=== PATIENT | female | born 1945 | race Caucasian/White ===

== ENCOUNTER 2023-04-27 11:17 | Outpatient (OUT) | payer MEDICARE, BC, SELFPAY ==
[2023-04-27 11:47] LABS: Basophils Absolute Auto 0.1 10^3/uL (0.0-0.1); Basophils Percent Auto 0.7 % (0.2-2.0); Eosinophils Absolute Auto 0.2 10^3/uL (0.0-0.7); Eosinophils Percent Auto 2.6 % (0.9-7.0); Hematocrit 46.8 % (36.0-48.0); Immature Granulocytes Abs Auto 0.04 10^3/uL (0.00-0.03); Immature Granulocytes Pct Auto 0.4 % (0.0-0.5); Lymphocytes Absolute Auto 2.3 10^3/uL (1.2-3.8); Lymphocytes Percent Auto 24.5 % (20.5-60.0); Mean Corpuscular HGB Conc 34.2 g/dL (29.9-35.2); Mean Corpuscular Hemoglobin 28.4 pg (26.7-34.0); Mean Platelet Volume 8.1 fL (9.5-13.5); Monocytes Absolute Auto 0.7 10^3/uL (0.3-0.8); Neutrophils Absolute Auto 5.9 10^3/uL (1.4-6.5); Neutrophils Percent Auto 63.8 % (43.0-75.0); Platelet Count 359 10^3/uL (150-450); Red Blood Count 5.64 10^6/uL (4.20-5.40); Red Cell Distribution Width 12.3 % (11.0-15.0); White Blood Count 9.2 10^3/uL (4.0-11.0)
[2023-04-27 12:46] LABS: Anion Gap 11.8; BUN Creatinine Ratio 13.2; Calcium 9.2 mg/dL (8.5-10.1); Carbon Dioxide 30.1 mmol/L (21.0-32.0); Chloride 103 mmol/L (98-107); Estimated GFR (African America >60 (>=60); Estimated GFR (Non-African Ame >60 (>=60); Glucose 120 mg/dL (74-106); Potassium 3.9 mmol/L (3.5-5.1); Sodium 141 mmol/L (136-145); Thyroid Stimulating Hormone 1.748 uIU/mL (0.358-3.740)
== END 2023-04-27 11:18 ==
PROVIDERS: PCP Family Medicine; Visit Provider Family Medicine
DX: R53.82 Chronic fatigue, unspecified (principal)
CPT/HCPCS: 36415; 80048; 82306; 82607; 82728; 82746; 84443; 85025

== ENCOUNTER 2023-08-16 11:36 | Outpatient (OUT) | payer MEDICARE, BC, SELFPAY ==
[2023-08-16 12:06] LABS: Basophils Absolute Auto 0.1 10^3/uL (0.0-0.1); Basophils Percent Auto 0.8 % (0.2-2.0); Eosinophils Absolute Auto 0.3 10^3/uL (0.0-0.7); Eosinophils Percent Auto 2.9 % (0.9-7.0); Hematocrit 47.8 % (36.0-48.0); Hemoglobin 15.9 g/dL (12.0-16.0); Immature Granulocytes Abs Auto 0.03 10^3/uL (0.00-0.03); Immature Granulocytes Pct Auto 0.3 % (0.0-0.5); Lymphocytes Absolute Auto 2.5 10^3/uL (1.2-3.8); Lymphocytes Percent Auto 26.5 % (20.5-60.0); Mean Corpuscular HGB Conc 33.3 g/dL (29.9-35.2); Mean Corpuscular Hemoglobin 28.3 pg (26.7-34.0); Mean Corpuscular Volume 85.1 fL (81.0-99.0); Mean Platelet Volume 8.3 fL (9.5-13.5); Monocytes Absolute Auto 0.7 10^3/uL (0.3-0.8); Monocytes Percent Auto 7.4 % (1.7-12.0); Neutrophils Percent Auto 62.1 % (43.0-75.0); Platelet Count 327 10^3/uL (150-450); Red Blood Count 5.62 10^6/uL (4.20-5.40); Red Cell Distribution Width 12.2 % (11.0-15.0); White Blood Count 9.6 10^3/uL (4.0-11.0)
[2023-08-16 12:38] LABS: Bilirubin Urine NEGATIVE (NEGATIVE); Blood Urine TRACE-I (NEGATIVE); Clarity Urine CLEAR (CLEAR); Color Urine LT. YELLOW (YELLOW); Glucose Urine UA NEGATIVE (NEGATIVE); Ketones Urine NEGATIVE (NEGATIVE); Leukocyte Esterase Urine TRACE (NEGATIVE); Nitrite Urine NEGATIVE (NEGATIVE); Protein Urine NEGATIVE (NEG/TRACE); Specific Gravity Urine <=1.005 (1.005-1.025); Urobilinogen Urine 0.2 EU/dL (0.2-1.0); pH Urine 6.5 (5.0-9.0)
[2023-08-16 13:35] LABS: Alanine Aminotransferase 21 U/L (14-59); Albumin Level 3.8 g/dL (3.4-5.0); Alkaline Phosphatase 110 U/L (46-116); Anion Gap 11.5; Aspartate Amino Transferase 18 U/L (15-37); BUN Creatinine Ratio 17.3; Bilirubin Total 0.4 mg/dL (0.2-1.0); Calcium 9.5 mg/dL (8.5-10.1); Carbon Dioxide 31.7 mmol/L (21.0-32.0); Chloride 102 mmol/L (98-107); Estimated GFR (African America >60 (>=60); Estimated GFR (Non-African Ame >60 (>=60); Globulin 3.8 g/dL; Glucose 107 mg/dL (74-106); Potassium 4.2 mmol/L (3.5-5.1); Sodium 141 mmol/L (136-145); Total Protein 7.6 g/dL (6.4-8.2)
== END 2023-08-16 11:37 | disposition home or self-care (01) ==
LOC: LAB 11:38
PROVIDERS: PCP Family Medicine; Visit Provider Family Medicine
DX: R82.90 Unspecified abnormal findings in urine (principal); E61.1 Iron deficiency; R10.11 Right upper quadrant pain; R30.0 Dysuria
CPT/HCPCS: 36415; 80053; 81003; 82728; 85025; 87086

== ENCOUNTER 2023-08-27 09:06 | Outpatient (OUT) | payer MEDICARE, BC, SELFPAY ==
--- NOTE | 2023-08-27 | CT_ITS ---
The [address] [address] Patient Name: REJI PAULINO MRN: [id number] date: 1945 Sex: F Assigned Patient Location: CT Current Patient Location: CT Accession/Order Number: [id number] Exam Date: 08/27/2023 10:12 Report Date: 08/28/2023 22:50 At the request of: PARAS GALLARDO Procedure: CT abdomen pelvis w con CLINICAL HISTORY: R10.11; Right upper quadrant pain.. EXAMINATION: Enhanced CT scan of the abdomen and pelvis: 08/27/2023. COMPARISON: Enhanced CT scan of the abdomen and pelvis: 01/01/2023. TECHNIQUE: 3 mm axial images from lung bases through ischial tuberosities without intravenous or oral contrast were obtained. Sagittal, coronal reconstructions were performed. FINDINGS: The lung bases demonstrate no focal abnormalities. The heart size seems normal. There are no filling defects in the cardiac chambers. CT ABDOMEN: The liver demonstrates slight low attenuation compatible with fatty infiltration without discrete lesions in the liver. Gallbladder, pancreas, adrenal glands appear normal. The spleen demonstrates there is a low-attenuation lesion in the mid posterior aspect, measuring 4 mm in size. There is an additional low-attenuation lesion in the medial aspect of the spleen, measuring 9 mm in size. The left kidney demonstrates no focal abnormalities. In the right kidney there is a low-attenuation lesion in the midpole, laterally measuring 1.5 cm in size with average Hounsfield units of 6. The abdominal aorta is moderately calcified. There are a few small lymph nodes at the level of oanh hepatis. There is no aneurysm. There is no retroperitoneal or mesenteric adenopathy. The bowel loops are of normal caliber. Appendix is not seen. There are scattered diverticula in the colon. CT PELVIS: The bladder seems normal. There is no ureterolithiasis. There is no pelvic adenopathy. The uterus, ovaries are not seen. On the delayed phase bladder images there is no extravasation of contrast or filling defects at the base of the bladder or distal ureters. The visualized soft tissues demonstrate degenerative changes of thoracolumbar spine. CT/CT abdomen pelvis w con IMPRESSION: 1. No obvious explanation for patient's symptoms. 2. Diverticulosis without diverticulitis. 3. Either hemangiomas or cysts in the spleen as well as simple cysts in the right kidney. 4. No obvious explanation for patient's right upper quadrant pain. 5. Previous hysterectomy. Electronically authenticated by: NOAH JIMENEZ Date: 08/28/2023 22:50
== END 2023-08-27 09:07 | disposition home or self-care (01) ==
LOC: CT 09:07
PROVIDERS: PCP Family Medicine; Visit Provider Family Medicine
DX: R10.11 Right upper quadrant pain (principal); K57.90 Diverticulosis of intestine, part unspecified, without perforation or abscess without bleeding; N28.1 Cyst of kidney, acquired; D73.4 Cyst of spleen
CPT/HCPCS: 74177; Q9967

== ENCOUNTER 2024-01-13 08:25 | Emergency (ER) | payer MEDICARE, BC, SELFPAY ==
[2024-01-13 08:32] VITALS: BP 171/107; PULSE 89; RESP 18; TEMP 36.6; O2SAT 95; BMI 33.1
--- NOTE | 2024-01-13 08:47 | ED_ITS ---
HPI - Back Pain/Injury General Chief Complaint: Back Pain/Injury Stated Complaint: BACK PAIN Time Seen by Provider: 01/13/24 08:39 Source: patient Mode of arrival: walk-in Limitations: no limitations History of Present Illness HPI Narrative: This patient is here complaining of severe back pain. She says it starts in her left lower paralumbar area and extends all the way up into the thoracic area. It hurts all the time but when she lays still it does not bother her as much. Twisting and turning makes it greatly worse. She had a CT scan approximately year ago that did not show any ureteral or nephrolithiasis. She did have a small cyst on her spleen and she is also got moderate calcification of her aorta. She has not had vomiting or diarrhea. She says she has got burning and itching when she urinates but has not seen any blood. She has not told her family doctor about the symptoms. She also said that her stomach has been bloated for months and months. She was to have an upper endoscopy but she canceled that and has not gotten that test rescheduled. That was ordered by her primary care doctor months ago. She has not been running a fever. She does have a history of hypertension Related Data Allergies Allergy/AdvReac Type Severity Reaction Status Date / Time nylon Allergy Unknown Verified 01/13/24 08:32 Penicillins Allergy Unknown Verified 01/13/24 08:32 [facility] Social History Smoking status: Current every day smoker Exam Narrative Exam Narrative: Awake alert pleasant appears to not be an extremis vital signs are noted. She has no shortness of breath or chest pain. Skin is warm and dry with good perfusion to the extremities. Legs have no evidence of DVT phlebitis or edema. Lungs are completely clear with no wheeze rales or rhonchi Heart sounds normal with no S3 or murmur. Pain does increase with twisting and some movements. Negative Russell sign. Constitutional Vital Signs, click to edit/add: Last Vital Signs Temp 97.9 F 01/13/24 08:32 Pulse 89 01/13/24 08:32 Resp 18 01/13/24 08:32 BP 171/107 H 01/13/24 08:32 Pulse Ox 95 01/13/24 08:32 O2 Del Method Room Air 01/13/24 08:32 Course Vital Signs Vital signs: Vital Signs Temperature 97.9 F 01/13/24 08:32 Pulse Rate 89 01/13/24 08:32 Respiratory Rate 18 01/13/24 08:32 Blood Pressure 171/107 H 01/13/24 08:32 Pulse Oximetry 95 01/13/24 08:32 Oxygen Delivery Method Room Air 01/13/24 08:32 Temperature 97.9 F 01/13/24 08:32 Pulse Rate 89 01/13/24 08:32 Respiratory Rate 18 01/13/24 08:32 Blood Pressure 171/107 H 01/13/24 08:32 Pulse Oximetry 95 01/13/24 08:32 Oxygen Delivery Method Room Air 01/13/24 08:32 MDM - Back Pain/Injury MDM Narrative Medical decision making narrative: This patient presents age 78 with mild elevation blood pressure with history of aortic calcifications and unexplained onset of left flank and back pain. I felt it is prudent to go ahead and do the CT scan. Fortunately the results do not show any dissection or aneurysm. There is no clinical evidence of hypoperfusion. The rest the laboratory testing was normal. This does appear to be ultimately musculoskeletal. Discharge Plan Discharge Chief Complaint: Back Pain/Injury Clinical Impression: Strain of lumbar region Patient Disposition: Home, Self-Care Time of Disposition Decision: 12:00 Additional Instructions: May use [id number] NSAIDs on a short duration only Stand Alone Forms: Portal Instructions Referrals: Cheyanne Hernandez MD [Primary Care Provider] - 1 week
--- NOTE | 2024-01-13 08:49 | CT_ITS ---
[address] [address] Patient Name: REJI PAULINO MRN: [id number] date: 1945 Sex: F Assigned Patient Location: ER Current Patient Location: Accession/Order Number: [id number] Exam Date: 01/13/2024 10:50 Report Date: 01/13/2024 11:41 At the request of: TAURUS CASTILLO Procedure: CT abdomen pelvis w con EXAMINATION: CT abdomen pelvis w con HISTORY: Left flank pain ,history aortic calcification COMPARISON: 08/27/2023 TECHNIQUE: CT images were created with IV contrast. Axial, Coronal, and Sagittal images. Dose reduction techniques were achieved by using automated exposure control and/or adjustment of mA and/or kV according to patient size and/or use of iterative reconstruction technique. FINDINGS: LUNG BASES: No visible pulmonary or pleural disease. LIVER: No enlargement, atrophy, abnormal density, or significant focal lesion. BILIARY: No visible dilatation or calcification. PANCREAS: No lesion, fluid collection, ductal dilatation, or atrophy. SPLEEN: No enlargement or focal lesion. ADRENALS: No mass or enlargement. KIDNEYS: No mass, obstruction, or calcification. BOWEL/MESENTERY: Colonic diverticulosis without evidence of acute diverticulitis. Nonobstructive bowel gas pattern. AORTA/VASCULAR: No aortic aneurysm. Moderate diffuse atherosclerosis RETROPERITONEUM: No mass or adenopathy. LYMPH NODES: No adenopathy. URINARY BLADDER: No visible focal wall thickening, lesion, or calculus. PELVIC ORGANS: Hysterectomy ABDOMINAL WALL: No mass or hernia. BONES: No bony lesion or fracture. Degenerative changes with levocurvature OTHER: Negative. CT/CT abdomen pelvis w con IMPRESSION: No acute intraperitoneal abnormality Electronically authenticated by: CRISTIANE SIMPSON Date: 01/13/2024 11:41
[2024-01-13 09:20] LABS: Bilirubin Urine NEGATIVE (NEGATIVE); Blood Urine NEGATIVE (NEGATIVE); Clarity Urine CLEAR (CLEAR); Color Urine YELLOW (YELLOW); Glucose Urine UA NEGATIVE (NEGATIVE); Ketones Urine NEGATIVE (NEGATIVE); Leukocyte Esterase Urine NEGATIVE (NEGATIVE); Nitrite Urine NEGATIVE (NEGATIVE); Protein Urine TRACE mg/dL (NEG/TRACE); Urobilinogen Urine 0.2 EU/dL (0.2-1.0); pH Urine 7.5 (5.0-9.0)
[2024-01-13 09:23] LABS: Urine Microscopic Indicated NO
[2024-01-13 09:39] VITALS: BP 150/78
[2024-01-13] MEDS: MORPHINE SULFATE 2 MG/ML SYRINGE IV (10:01)
[2024-01-13] MEDS: 0.9 % SODIUM CHLORIDE 1,000 ML 100 ML IV (10:02)
[2024-01-13 10:32] LABS: Basophils Absolute Auto 0.1 10^3/uL (0.0-0.1); Basophils Percent Auto 0.6 % (0.2-2.0); Eosinophils Absolute Auto 0.3 10^3/uL (0.0-0.7); Eosinophils Percent Auto 2.3 % (0.9-7.0); Hemoglobin 15.5 g/dL (12.0-16.0); Immature Granulocytes Abs Auto 0.05 10^3/uL (0.00-0.03); Immature Granulocytes Pct Auto 0.4 % (0.0-0.5); Lymphocytes Absolute Auto 2.1 10^3/uL (1.2-3.8); Lymphocytes Percent Auto 18.2 % (20.5-60.0); Mean Corpuscular HGB Conc 33.7 g/dL (29.9-35.2); Mean Corpuscular Hemoglobin 29.1 pg (26.7-34.0); Mean Corpuscular Volume 86.3 fL (81.0-99.0); Mean Platelet Volume 8.4 fL (9.5-13.5); Monocytes Absolute Auto 0.8 10^3/uL (0.3-0.8); Monocytes Percent Auto 7.2 % (1.7-12.0); Neutrophils Absolute Auto 8.2 10^3/uL (1.4-6.5); Neutrophils Percent Auto 71.3 % (43.0-75.0); Platelet Count 306 10^3/uL (150-450); Red Blood Count 5.33 10^6/uL (4.20-5.40); Red Cell Distribution Width 12.1 % (11.0-15.0); White Blood Count 11.5 10^3/uL (4.0-11.0)
[2024-01-13 10:41] LABS: Alanine Aminotransferase 16 U/L (14-59); Albumin Globulin Ratio 0.9; Albumin Level 3.5 g/dL (3.4-5.0); Alkaline Phosphatase 120 U/L (46-116); Anion Gap 11.2; Aspartate Amino Transferase 16 U/L (15-37); BUN Creatinine Ratio 15.1; Bilirubin Total 0.4 mg/dL (0.2-1.0); Calcium 9.1 mg/dL (8.5-10.1); Carbon Dioxide 31.1 mmol/L (21.0-32.0); Chloride 106 mmol/L (98-107); Estimated GFR (African America >60 (>=60); Estimated GFR (Non-African Ame >60 (>=60); Globulin 4.1 g/dL; Glucose 112 mg/dL (74-106); Potassium 4.3 mmol/L (3.5-5.1); Sodium 144 mmol/L (136-145); Total Protein 7.6 g/dL (6.4-8.2)
[2024-01-13 10:42] LABS: Lactate/Lactic Acid 0.9 mmol/L (0.4-2.0)
== END 2024-01-13 12:14 | disposition home or self-care (01) ==
PROVIDERS: Emergency Provider Emergency Medicine Emergency Medical Services; PCP Family Medicine
DX: S39.012A Strain of muscle, fascia and tendon of lower back, initial encounter (principal); X58.XXXA Exposure to other specified factors, initial encounter
CPT/HCPCS: 36415; 74177; 80053; 81003; 83605; 85025; 96374; 99284; Q9967

== ENCOUNTER 2024-08-09 13:35 | Outpatient (OUT) | payer MEDICARE, BC, SELFPAY ==
--- OUTSIDE RECORDS SUMMARY | 2024-08-09 13:45 | XMS_ITS | CCD ---
Author Organization [facility] Care Team Providers Care Lap Cutter Name Role Phone BALBINA, DR REDDY Attending Unavailable BALBINA, DR REDDY Consulting Unavailable BALBINA, DR REDDY Admitting Unavailable ZIVICER, DR RAMYA Bernal Consulting Unavailable PAY, DR FAJARDO Consulting Unavailable MD Lindy Rodriguez Primary Care Provider [phone] MARICARMEN Rolle Emergency Provider Amanda Srinivasan Unavailable SAMI, DR CHEYANNE Carrion Primary Care Unavailable ZIEBER, DR RAMYA Bernal Consulting Unavailable GALLARDO, DR CHEYANNE Carrion Admitting Unavailable GALLARDO, DR CHEYANNE Carrion Attending Unavailable GALLARDO, DR CHEYANNE Carrion Consulting Unavailable GALLARDO, DR CHEYANNE Carrion Attending Unavailable ZIEBER, DR RAMYA Bernal Consulting Unavailable GALLARDO, DR CHEYANNE Carrion Primary Care Unavailable GALLARDO, DR CHEYANNE Carrion Admitting Unavailable GALLARDO, DR CHEYANNE Carrion Consulting Unavailable GALLARDO, DR CHEYANNE Carrion Primary Care Unavailable JERMAN DOMINGUEZ Admitting Unavailable JERMAN DOMINGUEZ Attending Unavailable JERMAN DOMINGUEZ Consulting Unavailable GALLARDO, DR CHEYANNE Carrion Attending Unavailable WEST, DR CRISTIANE Luu Consulting Unavailable GALLARDO, DR CHEYANNE Carrion Primary Care Unavailable GALLARDO, DR CHEYANNE Carrion Admitting Unavailable GALLARDO, DR CHEYANNE Carrion Consulting Unavailable GALLARDO, DR CHEYANNE Carrion Primary Care Unavailable JERMAN DOMINGUEZ Attending Unavailable JERMAN DOMINGUEZ Admitting Unavailable WEST, DR CRISTIANE Luu Consulting Unavailable SUBHASH PETERSON Admitting Unavailable SUBHASH PETERSON Attending Unavailable SAMI, DR CHEYANNE Carrion Primary Care Unavailable SUBHASH PETERSON Consulting Unavailable KACI ANAYA Consulting UnavailANIVAL Hernandez Admitting Unavailable ANIVAL WALL Attending Unavailable SAMI, DR CHEYANNE Carrion Primary Care Unavailable CELENA WATSON Consulting Unavaila ble GALLARDO, DR CHEYANNE Carrion Primary Care Unavailable GALLARDO, DR CHEYANNE Carrion Admitting Unavailable GALLARDO, DR CHEYANNE E Attending Unavailable MD Cheyanne Gallardo Primary Care Provider DO Shawn Camarillo Emergency Provider [phone] Shawn Camarillo Admitting Unavailable Shawn Camarillo Attending Unavailable Cheyanne Gallardo Primary Care Unavailable Michael Lindy Katy Primary Care Unavailable Marek Rolle Admitting Unavailable Marek Rolle Attending Unavailable Cheyanne Gallardo Unavailable Thomas Calles Unavailable Cheyanne Gallardo MD Primary Care Provider [phone] ROSITA CASTILLO Attending Unavailable CHEYANNE GALLARDO Referring Unavailable CHEYANNE GALLARDO Primary Care Unavailable CORRINE KOROMA Admitting Unavailable CORRINE KOROMA Attending Unavailable CHEYANNE GALLARDO Referring Unavailable CHEYANNE GALLARDO Primary Care Unavailable CORRINE KOROMA Attending Unavailable CORRINE KOROMA E Referring Unavailable CHEYANNE GALLARDO Primary Care Unavailable DAIANA MARTIN Attending Unavailable CHEYANNE GALLARDO Primary Care Unavailable ROSITA CASTILLO Attending Unavailable CHEYANNE GALLARDO Referring Unavailable CHEYANNE GALLARDO Primary Care Unavailable Allergies Allergy Classification Reported Allergen(s) Allergy Type Date of Onset Reaction(s) Facility (3 sources) Ciprofloxacin Drug Allergy 07-12-20 21 [facility] Repository (6 sources) Penicillins; Translations: [PENICILLINS] Drug allergy (disorder) 03-25-20 21 Rash [facility] Repository (2 sources) Nylon 12 Drug allergy (disorder) [facility] Repository (13 sources) nylon; Translations: [nylon] Allergy to substance 10-10-20 22 Swelling, Rash [facility] (9 sources) Penicillin G Benzathine Drug allergy 08-08-20 24 Unknown, Unknown Reaction [facility] (1 source) Penicillins Drug allergy (disorder) 03-28-20 23 [facility] Repository (8 sources) cefdinir Drug Allergy 08-08-20 24 Unknown, Unknown Reaction [facility] (7 sources) venlafaxine Drug Allergy Unknown [facility] Other (6 sources) venlafaxine Drug Allergy 08-08-20 24 Unknown, Unknown Reaction [facility] (5 sources) Penicillin G Benzathine & Proc Drug allergy Unknown [facility] Other (5 sources) NYLON STITCHING Propensity to adverse reactions 10-13-20 17 Unknown [facility] Other (5 sources) Allergies Reconciled Propensity to adverse reactions Unknown [facility] Other (5 sources) patient allergy list reviewed by nurse or physicia Propensity to adverse reactions 10-13-20 Comment:Done [facility] Other (1 source) Penicillins Propensity to adverse reactions to drug 03-25-20 21 [facility] Medications Current Medications Medication Drug Class(es) Dates Sig (Normalized) Sig (Original) atorvastatin 80 mg oral tablet (12 sources) HMG-CoA Reductase Inhibitor Start: 10-10-2022 take 80 mg by mouth once daily Atorvastatin Active 80 MG PO Daily October 10, 2022 1:00am Start: 10-10-2022 Atorvastatin A ctive MG TABLET October 10, 2022 12:00am Atorvastatin Senthil cium Active losartan potassium 100 mg oral tablet (12 sources) Angiotensin 2 Receptor Rowdy Start: 01-21-2024 take 1 tablet by mouth once daily Losartan Active 0 .ROUTE .COMPLEX 90 January 21, 2024 5:59pm TAKE 1 TABLET BY MOUTH EVERY DAY Start: 10-10-2022 End: 01-21-2024 take 100 mg by mouth once daily Losartan Discontinued 100 MG PO Daily October 10, 2022 1:00am January 21, 2024 5:59pm Start: 10-10-2022 Losartan Activ e MG TABLET October 10, 2022 12:00am take 2 tablets by [facility] in the morning losartan (COZAAR) 50 mg tablet Take 2 tablets (100 mg total) by mouth in the morning. 0 Active Losartan Potassium-HCTZ (1 source) Losartan Potassium-HCTZ Active sulfamethoxazole 800 mg / trimethoprim 160 mg oral tablet (5 sources) Dihydrofolate Reductase Inhibitor Antibacterial, Sulfonamide Antimicrobial Start: 023 take 1 tablet by mouth every twelve hours Bactrim DS 800-160 MG 1 tablet Orally Twice a day for 10 day(s) Aug, Active Completed/Discontinued Medications Medication Drug Class(es) Dates Sig (Normalized) Sig (Original) acetaminophen 325 mg / HYDROcodone bitartrate 5 mg oral tablet (11 sources) Opioid Agonist Start: 10-10-2022 End: 03-28-2023 take 1 tablet by mouth every eight hours Hydrocodone-Acetami nophen Discontinued 1 TAB PO Q8H 10 October 10, 2022 March 28, 2023 10:04am take 1 tablet by lenin th every six hours as needed for pain HYDROcodone-Acetaminophen 5-325 MG TAKE 1 TABLET BY MOUTH EVERY 6 HOURS NEEDED FOR PAIN Oral for 7 Days Not-Taking [id number] actuat albuterol 0.09 mg/actuat metered dose inhaler (2 sources) beta2-Adrenergic Agonist Start: 03-28-2023 End: 01-17-2024 Albuterol Sulfate (Ventolin Hfa) 90 mcg/actuation HFA aerosol inhaler Discontinued 1 INH INHALATION EVERY 4-6 HOURS 6.7 March 28, 2023 12:00am January 17, 2024 3:51pm cholecalciferol 1.25 mg oral capsule (7 sources) Vitamin D Start: 01-17-2024 End: 01-18-2024 take 1250 ug by mouth every week Cholecalciferol (Vitamin D3) Discontinued 1250 MCG PO every week January 17, 2024 1:00am January 18, 2024 10:06am take 1 capsule by mouth every we ek Cholecalciferol 1.25 MG (40732 UT) 1 capsule Orally weekly for 90 days Active doxycycline hyclate 100 mg oral capsule (2 sources) Tetracycline-class Drug Start: 03-28-2023 End: 01-17-2024 take 100 mg by mouth twice daily Doxycycline Hyclate Discontinued 100 MG PO Twice daily 14 March 28, 2023 12:00am January 17, 2024 3:51pm fluconazole 100 mg oral tablet (1 source) Azole Antifungal Start: 01-18-2024 End: 08-08-2024 take 100 mg by mouth once daily Fluconazole Discontinued 100 MG PO Daily 7 January 18, 2024 1:00am August 08, 2024 2:00pm methylPREDNISolone 4 mg oral tablet (8 sources) Corticosteroid Start: 10-26-2022 Medrol 4 MG as directed Orally Once a day for 6 days Oct, Not-Taking omeprazole 40 mg delayed release oral capsule (12 sources) Proton Pump Inhibitor Start: 10-10-2022 End: 08-08-2024 take 40 mg by mouth once daily Omeprazole Discontinued 40 MG PO Daily October 10, 2022 1:00am August 08, 2024 2:00pm Start: 10-10-2022 Omeprazole Act sil MG October 10, 2022 12:00am predniSONE 50 mg oral tablet (2 sources) Start: 03-28-2023 End: 01-17-2024 take 50 mg by mouth once daily Prednisone Discontinued 50 MG PO Daily 7 March 28, 2023 12:00am January 17, 2024 3:52pm traMADol hydrochloride 50 mg oral tablet (4 sources) Opioid Agonist Start: 10-10-2022 End: 03-28-2023 Tramadol Discontinued MG TABLET October 10, 2022 1:00am March 28, 2023 10:05am take 1 tablet by lenin th every six hours as needed for pain traMADoL (ULTRAM) 50 mg tablet Take 1 tablet (50 mg total) by mouth every 6 (six) hours as needed for pain. 0 Active Problems Active Problems Problem Classification Problem Date Documented Da te Episodic/Chronic Abdominal pain (20 sources) Left lower quadrant pain; Translations: [Acute abdomen] Onset: 12-10-2017 Episodic Anxiety disorders (18 sources) Anxiety state; Translations: [Anxiety state, unspecified] Onset: 03-02-2019 01-16-2020 Chronic Chronic obstructive pulmonary disease and bronchiectasis (13 sources) Acute exacerbation of chronic obstructive airways disease; Translations: [Obstructive chronic bronchitis, with (acute) exacerbation] Onset: 10-13-2017 03-28-2023 Chronic Conditions associated with dizziness or vertigo (5 sources) Benign paroxysmal positional vertigo; Translations: [Benign paroxysmal vertigo, unspecified ear] Episodic Deficiency and other anemia (13 sources) Anemia; Translations: [Anemia, unspecified] 01-17-2024 Episodic Deficiency and other anemia (1 source) Anemia, unspecified; Translations: [Anemia, unspecified] 08-08-2024 Episodic Disorders of lipid metabolism (5 sources) Hyperlipidemia; Translations: [Hyperlipidemia, unspecified] Chronic Esophageal disorders (5 sources) Gastro-esophageal reflux disease with esophagitis; Translations: [Gastro-esophageal reflux disease with esophagitis, without bleeding] Chronic Essential hypertension (12 sources) Benign essential hypertension; Translations: [Essential hypertension, benign] Onset: 10-13-2017 01-17-2024 Chronic Genitourinary symptoms and ill-defined conditions (3 sources) Other abnormal findings in urine; Translations: [Unspecified abnormal findings in urine] Onset: 07-30-2021 Episodic Headache; including migraine (19 sources) Frontal headache ; Translations: [Frontal headache] Onset: 06-20-2018 01-17-2024 Episodic Heart valve disorders (6 sources) O/E - cardiac murmur; Translations: [Cardiac murmur, unspecified] 01-17-2024 Episodic Immunizations and screening for infectious disease (5 sources) Vaccination given; Translations: [Encounter for immunization] Episodic Inflammatory diseases of female pelvic organs (1 source) Vaginitis; Translations: [Acute vaginitis] 01-18-2024 Episodic Malaise and fatigue (9 sources) Fatigue; Translations: [Chronic fatigue, unspecified] Chronic Malaise and fatigue (15 sources) Fatigue; Translations: [Other fatigue] 01-17-2024 Episodic Mood disorders (17 sources) Moderate recurrent major depression; Translations: [Major depressive disorder, recurrent episode, moderate] Onset: 10-13-2017 01-16-2020 Chronic Nausea and vomiting (9 sources) Nausea; Translations: [Nausea] Episodic Nonspecific chest pain (5 sources) Chest pain; Translations: [Chest pain, unspecified] Episodic Nutritional deficiencies (1 source) Iron deficiency Episodic Other aftercare (2 sources) Other mcfp (current) drug therapy; Translations: [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] Onset: 07-30-2021 Episodic Other circulatory disease (6 sources) Elevated blood-pressure reading without diagnosis of hypertension; Translations: [Elevated blood-pressure reading, without diagnosis of hypertension] 01-17-2024 Episodic Other connective tissue disease (5 sources) Pain in limb; Translations: [Pain in left toe(s)] Episodic Other connective tissue disease (5 sources) Pain in right foot; Translations: [Pain in right foot] Episodic Other connective tissue disease (1 source) Pain in toe; Translations: [Pain in left toe(s)] 01-17-2024 Episodic Other connective tissue disease (1 source) Foot pain; Translations: [Pain in right foot] 01-17-2024 Episodic Other gastrointestinal disorders (8 sources) Chronic idiopathic constipation; Translations: [Chronic idiopathic constipation] 01-17-2024 Chronic Other gastrointestinal disorders (9 sources) Abdominal bloating; Translations: [Abdominal distension (gaseous)] 01-17-2024 Episodic Other gastrointestinal disorders (4 sources) Abdominal distension (gaseous); Translations: [ABDOMINAL DISTENSION GASEOUS] Onset: 01-11-2023 Episodic Other non-traumatic joint disorders (6 sources) Pain in wrist; Translations: [Pain in left wrist] 01-17-2024 Episodic Other nutritional; endocrine; and metabolic disorders (8 sources) Obese class I; Translations: [Body mass index (BMI) 34.0-34.9, adult] Chronic Other screening for suspected conditions (not mental disorders or infectious disease) (17 sources) Magnetic resonance imaging of brain abnormal; Translations: [Other abnormal findings on diagnostic imaging of central nervous system] Onset: 01-18-2018 Episodic Pancreatic disorders (not diabetes) (7 sources) Acute pancreatitis without necrosis or infection, unspecified; Translations: [Acute pancreatitis] Onset: 07-30-2021 01-17-2024 Episodic Residual codes; unclassified (1 source) Acquired absence of both cervix and uterus; Translations: [ACQUIRED ABSENCE BOTH CERVIX AND UTERUS] Onset: 01-13-2023 Episodic Residual codes; unclassified (13 sources) Amnesia; Translations: [Other amnesia] 01-17-2024 Episodic Residual codes; unclassified (6 sources) Disorientated; Translations: [Disorientation, unspecified] 01-17-2024 Episodic Residual codes; unclassified (1 source) Memory impairment; Translations: [Other amnesia] 01-17-2024 Episodic Screening and history of mental health and substance abuse codes (1 source) Personal history of nicotine dependence; Translations: [PERSONAL HISTORY OF NICOTINE DEPEND] Onset: 01-13-2023 Episodic Skin and subcutaneous tissue infections (9 sources) Cutaneous abscess of left foot; Translations: [Abscess of foot] Onset: 09-15-2022 Episodic Spondylosis; intervertebral disc disorders; other back problems (8 sources) Cervical spondylosis; Translations: [Spondylosis without myelopathy or radiculopathy, cervical region] Onset: 10-10-2022 10-10-2022 Chronic Spondylosis; intervertebral disc disorders; other back problems (20 sources) Cervicalgia; Translations: [Spinal stenosis, cervical region] Onset: 10-05-2022 Episodic Substance-related disorders (2 sources) Nicotine dependence, cigarettes, uncomplicated; Translations: [NICOTINE DEPEND CIGARETTES UNCOMP] Onset: 07-30-2021 Chronic Unclassified (1 source) CONTACT W/AND (SUSP) EXPOS COVID-19; Translations: [CONTACT W/AND (SUSP) EXPOS COVID-19] Onset: 07-30-2021 Urinary tract infections (5 sources) Urinary tract infectious disease; Translations: [Urinary tract infection, site not specified] Episodic Viral infection (5 sources) Disease caused by 2019-nCoV; Translations: [COVID-19] Past or Other Problems Problem Classification Problem Date Documented Da te Episodic/Chronic Other connective tissue disease (4 sources) Pain in left toe(s); Translations: [PAIN IN LEFT TOES] Onset: 09-09-2022 Episodic Other connective tissue disease (5 sources) Neuralgia; Translations: [Neuralgia and neuritis, unspecified] Onset: 01-11-2019 Episodic Other connective tissue disease (1 source) Neuropathy; Translations: [Neuralgia and neuritis, unspecified] Onset: 01-11-2019 01-17-2024 Episodic Other non-traumatic joint disorders (4 sources) Pain in left wrist; Translations: [PAIN IN LEFT WRIST] Onset: 05-08-2022 Episodic Residual codes; unclassified (5 sources) Pale complexion; Translations: [Pallor] Onset: 12-03-2017 Episodic Results Test Name Value Interpretation Reference Range Facility Basic Metabolic Panelon 03-15 Anion gap [Moles/Vol] 9.4 mmol/L Normal 6.0-15.0 [facility] Comment on above: Performed By: #### B MP, CBC #### [facility] [address] [place] [address] [place] Calcium [Mass/Vol] 8.8 mg/dL Normal 8.6-10.3 [facility] Comment on above: Performed By: #### B MP, CBC #### [facility] [address] [place] [id number] [place] Chloride [Moles/Vol] 102 mmol/L Normal 98-107 [facility] Comment on above: Performed By: #### B MP, CBC #### [facility] [address] [place] [address] [place] CO2 [Moles/Vol] 32.8 mmol/L High 21.0-31.0 [facility] Comment on above: Performed By: #### B MP, CBC #### [facility] [address] Creatinine [Mass/Vol] 0.73 mg/dL Normal 0.60-1.20 [facility] Comment on above: Performed By: #### B MP, CBC #### [facility] [address] [place] [address] [place] Creatinine Clr Calc Pharmacy 56.10 Normal [facility] Comment on above: Result Comment: PERF ORMED BY: [place] [address] PATHOLOGIST FOOD SERVICES MANAGER AVIVA ELLISON M.D. Performed By: #### B MP, CBC #### [facility] [address] [place] [address] [place] GFR/1.73 sq M.predicted MDRD (S/P/Bld) [Vol rate/Area] mL/min/{1.73_m2} [facility] Comment on above: Performed By: #### B MP, CBC #### [facility] [address] [place] [address] [place] Glucose [Mass/Vol] 113 mg/dL High 70-100 [facility] Comment on above: Result Comment: [place] Glucose Reference Range is dependent on time and content of last meal. Glucose of more than 200 mg/dL in a nonstressed, ambulatory subject supports the diagnosis of Diabetes Mellitus. ADA recommended reference range Performed By: #### B MP, CBC #### [facility] [address] [place] [address] [place] Potassium [Moles/Vol] 4.2 mmol/L Normal 3.5-5.1 [facility] Comment on above: Performed By: #### B MP, CBC #### [facility] [address] [place] [address] [place] Sodium [Moles/Vol] 140 mmol/L Normal 136-145 [facility] Comment on above: Performed By: #### B MP, CBC #### [address] Urea nitrogen [Mass/Vol] 10 mg/dL Normal 7-25 [facility] Comment on above: Performed By: #### B MP, CBC #### [address] Basophils Auto (Bld) [#/Vol] Ordered By: Shawn Camarillo on 03-28-2023 Basophils (Bld) [#/Vol] 0.1 10*3/uL 0.0-0.2 [facility] Basophils/100 WBC Auto (Bld) Ordered By: Shawn Camarillo on 03-28-2023 Basophils/100 WBC (Bld) 1.0 % . [facility] BioFire Not Detectedon 03-28 BioFire Not Detected Not detected Normal Not Detecte [facility] Comment on above: Result Comment: This is a duplicate RP2.1 COVID (PCR) result to be used for statistical tracking purpose only. PERFORMED BY: [place] [address] PATHOLOGIST FOOD SERVICES MANAGER AVIVA ELLISON M.D. Performed By: #### R CRIS PANEL UPP., BIOFIRECOVNOTDE #### [address] COVID-19 Detected/Not Detect edOrdered By: Shawn Camarillo on 03-28-2023 SARS-CoV-2 (COVID-19) RNA UMESH+non-probe Ql (Nph) Not detected Not Detecte [facility] Comment on above: This is a duplicate RP2.1 COVID (PCR) result to be used for statistical tracking purpose only. Calcium [Mass/volume] in Ser um or PlasmaOrdered By: Shawn Camarillo on 03-28-2023 Calcium [Mass/Vol] 8.8 mg/dL 8.6-10.3 [facility] Carbon dioxide, total [Moles /volume] in Serum or PlasmaOrdered By: Shawn Camarillo on 03-28-2023 CO2 [Moles/Vol] 32.8 mmol/L 21.0-31.0 [facility] Chloride [Moles/volume] in S nhi or PlasmaOrdered By: Shawn Camarillo on 03-28-2023 Chloride [Moles/Vol] 102 mmol/L 98-107 [facility] Complete Blood Count Auto Di ffon 03-28-2023 Basophils (Bld) [#/Vol] 0.1 10*3/uL Normal 0.0-0.2 [facility] Comment on above: Result Comment: PERF ORMED BY: [place] [address] PATHOLOGIST FOOD SERVICES MANAGER AVIVA ELLISON M.D. Performed By: #### B MP, CBC #### [address] Basophils/100 WBC (Bld) 1.0 % Normal . [facility] Comment on above: Performed By: #### B MP, CBC #### [address] Eosinophils (Bld) [#/Vol] 0.3 10*3/uL Normal 0.0-0.45 [facility] Comment on above: Performed By: #### B MP, CBC #### [address] Eosinophils/100 WBC (Bld) 3.2 % Normal . [facility] Comment on above: Performed By: #### B MP, CBC #### [address] Erythrocyte distribution width (RBC) [Ratio] 12.8 % Normal 11.9-15.3 [facility] Comment on above: Performed By: #### B MP, CBC #### [address] Hematocrit (Bld) [Volume fraction] 45.9 % Normal 34.0-46.4 [facility] Comment on above: Performed By: #### B MP, CBC #### [address] Hemoglobin (Bld) [Mass/Vol] 15.5 g/dL High 11.8-15.4 [facility] Comment on above: Performed By: #### B MP, CBC #### [address] Lymphocytes (Bld) [#/Vol] 2.0 10*3/uL Normal 1.00-4.8 [facility] Comment on above: Performed By: #### B MP, CBC #### [address] Lymphocytes/100 WBC (Bld) 23.9 % Normal . [facility] Comment on above: Performed By: #### B MP, CBC #### [address] MCH (RBC) [Entitic mass] 28.2 pg Normal 24.7-34.3 [facility] Comment on above: Performed By: #### B MP, CBC #### [address] MCV (RBC) [Entitic vol] 83.6 fL Normal 80-100 [facility] Comment on above: Performed By: #### B MP, CBC #### [address] Mean Corpuscular HGB Conc 33.8 g/dL Normal 32.0-35.0 [facility] Comment on above: Performed By: #### B MP, CBC #### [address] Monocytes (Bld) [#/Vol] 0.6 10*3/uL Normal 0.0-0.8 [facility] Comment on above: Performed By: #### B MP, CBC #### [address] Monocytes/100 WBC (Bld) 17.31 % Normal 0.00-20.00 [facility] Comment on above: Performed By: #### B MP, CBC #### [address] Monocytes/100 WBC (Bld) 6.9 % Normal . [facility] Comment on above: Performed By: #### B MP, CBC #### [facility] [address] [place] [address] [place] Neutrophils (Bld) [#/Vol] 5.6 10*3/uL Normal 1.8-7.7 [facility] Comment on above: Performed By: #### B MP, CBC #### [facility] [address] [place] [address] [place] Neutrophils/100 WBC (Bld) 65.0 % Normal . [facility] Comment on above: Performed By: #### B MP, CBC #### [facility] [address] [place] [address] [place] NRBC% 0.0 /100{WBC} Normal 0-0.5 [facility] Comment on above: Performed By: #### B MP, CBC #### [facility] [address] [place] [address] [place] Platelet mean volume (Bld) [Entitic vol] 6.3 fL Normal 6.3-10.7 [facility] Comment on above: Performed By: #### B MP, CBC #### [facility] [address] [place] [address] [place] Platelets (Bld) [#/Vol] 323 10*3/uL Normal 150-450 [facility] Comment on above: Performed By: #### B MP, CBC #### [facility] [address] [place] [address] [place] RBC (Bld) [#/Vol] 5.49 10*6/uL High 3.60-5.00 [facility] Comment on above: Performed By: #### B MP, CBC #### [facility] [address] [place] [address] [place] WBC (Bld) [#/Vol] 8.6 10*3/uL Normal 3.8-11.6 [facility] Comment on above: Performed By: #### B MP, CBC #### [facility] [address] [place] [address] [place] Creatinine [Mass/volume] in Serum or PlasmaOrdered By: Shawn Camarillo on 03-28-2023 Creatinine [Mass/Vol] 0.73 mg/dL 0.60-1.20 [facility] Eosinophils Auto (Bld) [#/Vo l]Ordered By: Shawn Camarillo on 03-28-2023 Eosinophils (Bld) [#/Vol] 0.3 10*3/uL 0.0-0.45 [facility] Eosinophils/100 WBC Auto (Bl d)Ordered By: Shawn Camarillo on 03-28-2023 Eosinophils/100 WBC (Bld) 3.2 % . [facility] Erythrocyte distribution wid th Auto (RBC) [Ratio]Ordered By: Shawn Camarillo on 03-28-2023 Erythrocyte distribution width (RBC) [Ratio] 12.8 % 11.9-15.3 [facility] Glucose [Mass/volume] in Ser um or PlasmaOrdered By: Shawn Camarillo on 03-28-2023 Glucose [Mass/Vol] 113 mg/dL 70-100 [facility] Comment on above: ADA recommended refe rence rangeRandom Glucose Reference Range is dependent on time and content of last meal. Glucose of more than 200 mg/dL in a nonstressed, ambulatory subject supports the diagnosis of Diabetes Mellitus. Hematocrit Auto (Bld) [Volum e fraction]Ordered By: Shawn Camarillo on 03-28-2023 Hematocrit (Bld) [Volume fraction] 45.9 % 34.0-46.4 [facility] Hemoglobin [Mass/volume] in BloodOrdered By: Shawn Camarillo on 03-28-2023 Hemoglobin (Bld) [Mass/Vol] 15.5 g/dL 11.8-15.4 [facility] Leukocytes [#/volume] correc sheila for nucleated erythrocytes in Blood by Automated counOrdered By: Shawn Camarillo on 03-28-2023 WBC corrected for nucl RBC Auto (Bld) [#/Vol] 8.6 10*3/uL 3.8-11.6 [facility] Lymphocytes Auto (Bld) [#/Vo l]Ordered By: Shawn Camarillo on 03-28-2023 Lymphocytes (Bld) [#/Vol] 2.0 10*3/uL 1.00-4.8 [facility] Lymphocytes/100 WBC Auto (Bl d)Ordered By: Shawn Camarillo on 03-28-2023 Lymphocytes/100 WBC (Bld) 23.9 % . [facility] MCH Auto (RBC) [Entitic mass ]Ordered By: Shawn Camarillo on 03-28-2023 MCH (RBC) [Entitic mass] 28.2 pg 24.7-34.3 [facility] MCHC Auto (RBC) [Mass/Vol]Or dered By: Shawn Camarillo on 03-28-2023 MCHC (RBC) [Mass/Vol] 33.8 g/dL 32.0-35.0 [facility] MCV Auto (RBC) [Entitic vol] Ordered By: Shawn Camarillo on 03-28-2023 MCV (RBC) [Entitic vol] 83.6 fL 80-100 [facility] Monocyte distribution width [Entitic volume] in Blood by AutomatedOrdered By: Shawn Camarillo on 03-28-2023 Monocyte distribution width Auto (Bld) [Entitic vol] 17.31 % 0.00-20.00 [facility] Monocytes Auto (Bld) [#/Vol] Ordered By: Shawn Camarillo on 03-28-2023 Monocytes (Bld) [#/Vol] 0.6 10*3/uL 0.0-0.8 [facility] Monocytes/100 WBC Auto (Bld) Ordered By: Shawn Camarillo on 03-28-2023 Monocytes/100 WBC (Bld) 6.9 % . [facility] Neutrophils Auto (Bld) [#/Vo l]Ordered By: Shawn Camarillo on 03-28-2023 Neutrophils (Bld) [#/Vol] 5.6 10*3/uL 1.8-7.7 [facility] Neutrophils/100 WBC Auto (Bl d)Ordered By: Shawn Camarillo on 03-28-2023 Neutrophils/100 WBC (Bld) 65.0 % . [facility] No Panel InformationOrdered By: Shawn Camarillo on 03-28-2023 Estimated GFR (CKD-EPI) > 60.0 mL/Min [facility] Creatinine Clearance (Chem 56.10 [facility] Nucleated erythrocytes [Pres ence] in Blood by Automated countOrdered By: Shawn Camarillo on 03-28-2023 Nucleated RBC Auto Ql (Bld) 0.0 /100{WBC} 0-0.5 [facility] Platelet mean volume Auto (B ld) [Entitic vol]Ordered By: Shawn Camarillo on 03-28-2023 Platelet mean volume (Bld) [Entitic vol] 6.3 fL 6.3-10.7 [facility] Platelets Auto (Bld) [#/Vol] Ordered By: Shawn Camarillo on 03-28-2023 Platelets (Bld) [#/Vol] 323 10*3/uL 150-450 [facility] Potassium [Moles/volume] in Serum or PlasmaOrdered By: Shawn Camarillo on 03-28-2023 Potassium [Moles/Vol] 4.2 mmol/L 3.5-5.1 [facility] RBC Auto (Bld) [#/Vol]Ordere d By: Shawn Camarillo on 03-28-2023 RBC (Bld) [#/Vol] 5.49 10*6/uL 3.60-5.00 [facility] Respiratory (Upper) Panel, P CRon 03-28-2023 Respiratory (Upper) Panel, PCR Adenovirus Not detected Bordetella parapertussis Not detected Chlamydia pneumoniae Not detected Coronavirus 229E Not detected Coronavirus HKU1 Not detected Coronavirus NL63 Not detected Coronavirus OC43 Not detected Influenza A Not detected Influenza B Not detected Human Metapneumovirus Not detected Mycoplasma pneumoniae Not detected Parainfluenza Virus 1 Not detected Parainfluenza Virus 2 Not detected Parainfluenza Virus 3 Detected Parainfluenza Virus 4 Not detected Bordetella pertussis-ptxP Not detected Human Rhino/Enterovirus Detected Resp. Syncytial Virus Not detected COVID-19 Detected/Not Detected Not detected Blank Space FLUA TEST INCLUDES Influenza A tests for the following clinically FLUA TEST INCLUDES significant subtypes: FLUA TEST INCLUDES - Influenza A FLUA TEST INCLUDES - Influenza A H1 FLUA TEST INCLUDES - Influenza A H1 2009 FLUA TEST INCLUDES - Influenza A H3 Blank Space PERFORMED BY: [place] [address] PATHOLOGIST [employer] MANAGER AVIVA ELLISON M.D. Normal [facility] Comment on above: Performed By: #### R CRIS PANEL UPP., BIOFIRECOVNOTDE #### [address] Respiratory pathogens DNA an d RNA panel - Nasopharynx by UMESH with non-probe detectionOrdered By: Shawn Camarillo on 03-28-2023 Respiratory pathogens DNA and RNA panel UMESH+non-probe (Nph) [facility] Serum or plasma anion gap de terminationOrdered By: Shawn Camarillo on 03-28-2023 Anion gap [Moles/Vol] 9.4 mmol/L 6.0-15.0 [facility] Sodium [Moles/volume] in Ser um or PlasmaOrdered By: Shawn Camarillo on 03-28-2023 Sodium [Moles/Vol] 140 mmol/L 136-145 [facility] Urea nitrogen [Mass/volume] in Serum or PlasmaOrdered By: Shawn Camarillo on 03-28-2023 Urea nitrogen [Mass/Vol] 10 mg/dL 7-25 [facility] WBC Auto (Bld) [#/Vol]Ordere d By: Shawn Camarillo on 03-28-2023 WBC (Bld) [#/Vol] 8.6 10*3/uL 3.8-11.6 [facility] XR chest 1V portableon 03-28 XR chest 1V portable [facility] [address] [place] [address] XRay Report Signed Patient: Nya Jiang MR#: [id number] : 1945 Acct:[id number] Age/Sex: 77 / F ADM Date: 03/28/23 Loc: ER Room: Type: [facility] ER Attending Dr: Copies to: Shawn Camarillo DO Ordering Provider: Shawn Camarillo DO Date of Service: 03/28/23 XR/XR chest 1V portable: Shortness of Breath/Dyspnea XR chest 1V portable 03/28/2023 10:02 AM SIGNS AND SYMPTOMS: Cough, congestion, shortness of breath PROTOCOL: Frontal radiograph of the chest COMPARISON: None FINDINGS: The trachea is midline. Atherosclerotic changes are present in the thoracic aorta. The heart and mediastinal structures are within normal limits. The lung parenchyma is clear. The bony thorax is intact. Degenerative changes are noted in the shoulders and thoracic spine. XR/XR chest 1V portable IMPRESSION: No acute cardiopulmonary pathology. Impression dictated by: Nata Zamudio M.D.03/28/2023 10:20 AM Dictation Location: [place] [address] Transcribed By: [facility] 03/28/23 1020 Dictated By: Nata Zamudio II, MD 03/28/23 1019 Signed By: 03/28/23 1020 [facility] CBC AUTO DIFFon 01-11-2023 BASO # 0.1 103/ul Normal 0.0-0.1 [facility] Comment on above: Performed By: #### U MICRO, ERUR #### [facility] [address] [place] [address] Dr. Otf Rodriguez Basophils/100 WBC (Bld) 0.5 % Normal 0.2-2.0 [facility] Comment on above: Performed By: #### U MICRO, ERUR #### [facility] [address] [address] [address] Otf Rodriguez EO # 0.3 103/ul Normal 0.0-0.7 [facility] Comment on above: Performed By: #### U MICRO, ERUR #### [facility] [address] [address] [address] Otf Rodriguez Eosinophils/100 WBC (Bld) 1.8 % Normal 0.9-7.0 [facility] Comment on above: Performed By: #### U MICRO, ERUR #### [facility] [address] [address] [address] Otf Rodriguez Erythrocyte distribution width (RBC) [Ratio] 12.4 % Normal 11.0-15.0 [facility] Comment on above: Performed By: #### U MICRO, ERUR #### [facility] [address] [place] [address] Dr. Otf Rodriguez Hematocrit (Bld) [Volume fraction] 46.0 % Normal 36.0-48.0 [facility] Comment on above: Performed By: #### U MICRO, ERUR #### [facility] [address] [place] [address] Dr. Otf Rodriguez Hemoglobin (Bld) [Mass/Vol] 16.0 g/dL Normal 12.0-16.0 [facility] Comment on above: Performed By: #### U MICRO, ERUR #### [facility] [address] [place] [address] Dr. Otf Rodriguez IG # 0.05 10e3/ul Critically high 0.00-0.03 [facility] Comment on above: Performed By: #### U MICRO, ERUR #### [facility] [address] [place] [address] Dr. Otf Rodirguez IG % 0.3 % Normal 0.0-0.5 [facility] Comment on above: Performed By: #### U MICRO, ERUR #### [facility] [address] [place] [address] Dr. Otf Rodriguez LYMPH # 2.5 103/ul Normal 1.2-3.8 [facility] Comment on above: Performed By: #### U MICRO, ERUR #### [facility] [address] [place] [address] Dr. Otf Rodriguez Lymphocytes/100 WBC (Bld) 16.8 % Critically low 20.5-60.0 [facility] Comment on above: Performed By: #### U MICRO, ERUR #### [facility] [address] [place] [address] Dr. Otf Rodriguez MANUAL DIFF REQ NO Normal [facility] Comment on above: Performed By: #### U MICRO, ERUR #### [facility] [address] [place] [address] Dr. Otf Rodriguez MCH (RBC) [Entitic mass] 28.7 pg Normal 26.7-34.0 [facility] Comment on above: Performed By: #### U MICRO, ERUR #### [facility] [address] [place] [address] Dr. Otf Rodriguez MCHC (RBC) [Mass/Vol] 34.8 g/dL Normal 29.9-35.2 [facility] Comment on above: Performed By: #### U MICRO, ERUR #### [facility] [address] [place] [address] Dr. Otf Rodriguez MCV (RBC) [Entitic vol] 82.4 fL Normal 81.0-99.0 [facility] Comment on above: Performed By: #### U MICRO, ERUR #### [facility] [address] [place] [address] Dr. Otf Rodriguez MONO # 1.0 103/ul Critically high 0.3-0.8 [facility] Comment on above: Performed By: #### U MICRO, ERUR #### [facility] [address] [place] [address] Dr. Otf Rodriguez Monocytes/100 WBC (Bld) 6.5 % Normal 1.7-12.0 [facility] Comment on above: Performed By: #### U MICRO, ERUR #### [facility] [address] [place] [address] Dr. Otf Rodriguez NEUT # 11.2 103/ul Critically high 1.4-6.5 [facility] Comment on above: Performed By: #### U MICRO, ERUR #### [facility] [address] [place] [address] Dr. Otf Rodriguez Neutrophils/100 WBC (Bld) 74.1 % Normal 43.0-75.0 [facility] Comment on above: Performed By: #### U MICRO, ERUR #### [facility] [address] [address] [address] Otf Rodriguez Platelet mean volume (Bld) [Entitic vol] 8.1 fL Critically low 9.5-13.5 [facility] Comment on above: Performed By: #### U MICRO, ERUR #### [facility] [address] [address] [address] Otf Rodriguez PLT 338 103/ul Normal 150-450 [facility] Comment on above: Performed By: #### U MICRO, ERUR #### [facility] [address] [address] [address] Otf Rodriguez RBC 5.58 106/ul Critically high 4.20-5.40 [facility] Comment on above: Performed By: #### U MICRO, ERUR #### [facility] [address] [address] [address] Otf Rodriguez WBC 15.1 103/ul Critically high 4.0-11.0 [facility] Comment on above: Performed By: #### U MICRO, ERUR #### [facility] [address] [address] [address] ABD/PELV W CONon 01-11-[address] ABD/PELV W CON EXAMINATION: CT ABD/PELV W CON HISTORY: Chronic abdominal bloating, worse today, constant right flank pain and nausea, vomiting x1 4 days ago COMPARISON: CT abdomen pelvis 07/04/2021. TECHNIQUE: Axial postcontrast CT imaging of the abdomen and pelvis was performed with coronal and sagittal reformats. Dose reduction techniques were achieved by using automated exposure control and/or adjustment of mA and/or kV according to patient size and/or use of iterative reconstruction technique. FINDINGS: LOWER CHEST: Mediastinum/ria: Within normal limits. Heart/vessels: Heart size within normal limits. No pericardial effusion. Pleura: No pleural effusions. Lungs: Within normal limits. ABDOMEN/PELVIS: Liver: Within normal limits. Gallbladder/biliary : Within normal limits. Spleen: Stable nonspecific too small to characterize subcentimeter hypoattenuating lesion involving the lesion. Pancreas: Within normal limits. Adrenals: Within normal limits. Kidneys: No radiopaque calculi or hydronephrosis. Subtle ill-defined right renal cyst cyst measuring 16 mm suboptimally evaluated on the current study secondary to nephrographic phase of contrast. This is stable from 07/05/2021. Mildly atrophic appearance of the left kidney compared to that of the right. Peritoneum: Within normal limits. Mesentery: Within normal limits. Extraperitoneum: Within normal limits. Gastrointestinal tract: No bowel obstruction. Colonic diverticulosis without adjacent inflammatory changes. Appendix is not visualized although there is no secondary CT evidence for acute appendicitis. Ureters: Within normal limits. Bladder: Within normal limits. Reproductive System: Hysterectomy. No adnexal masses. Vascular: Within normal limits. MSK: No acute osseous or soft tissue findings. Moderate degenerative change of the thoracolumbar spine. Multilevel Schmorl's nodes. Diffuse osteopenia. IMPRESSION: 1. No CT evidence for acute intra-abdominal/pel kaylah process. 2. Colonic diverticulosis. 3. Right renal cyst. Electronically authenticated by: CELENA WATSON Date: 2023-01-11 19:32 Normal [facility] ER URINE PROFILEon 3 Bilirubin Ql (U) Negative Normal NEGATIVE [facility] Comment on above: Performed By: #### U MICRO, ERUR #### [facility] [address] [address] [address] Otf Rodriguez Clarity (U) CLEAR Normal CLEAR [facility] Comment on above: Performed By: #### U MICRO, ERUR #### [facility] [address] [address] [address] Otf Rodriguez Color (U) LT. YELLOW Normal YELLOW [facility] Comment on above: Performed By: #### U MICRO, ERUR #### [facility] [address] [address] [address] Otf Rodriguez ERUAHD A micrscopic examination will be performed if indicated. Normal [facility] Comment on above: Performed By: #### U MICRO, ERUR #### [facility] [address] [address] [address] Otf Rodriguez Glucose Ql (U) Negative Normal NEGATIVE [facility] Comment on above: Performed By: #### U MICRO, ERUR #### [facility] [address] [place] [address] [address] Otf Rodriguez Hemoglobin Ql (U) TRACE-LYSED Abnormal NEGATIVE [facility] Comment on above: Performed By: #### U MICRO, ERUR #### [facility] [address] [place] [address] Dr. Otf Rodriguez Ketones Ql (U) Negative Normal NEGATIVE [facility] Comment on above: Performed By: #### U MICRO, ERUR #### [facility] [address] [place] [address] Dr. Otf Rodriguez LEUKOCYTES TRACE Abnormal NEGATIVE [facility] Comment on above: Performed By: #### U MICRO, ERUR #### [facility] [address] [place] [address] Dr. Otf Rodriguez Nitrite Ql (U) Negative Normal NEGATIVE [facility] Comment on above: Performed By: #### U MICRO, ERUR #### [facility] [address] [place] [address] Dr. Otf Rodriguez pH (U) 7.0 [pH] Normal 5-9 [facility] Comment on above: Performed By: #### U MICRO, ERUR #### [facility] [address] [place] [address] Dr. Otf Rodriguez Protein (U) [Mass/Vol] 30 mg/dL Abnormal NEGAT SIL/ TRACE [facility] Comment on above: Performed By: #### U MICRO, ERUR #### [facility] [address] [place] [address] Dr. Otf Rodriguez SPEC GRAVITY 1.010 Normal 1.005-<=1.025 [facility] Comment on above: Performed By: #### U MICRO, ERUR #### [facility] [address] [place] [address] Dr. Otf Rodriguez UR MICRO IND INDICATED Normal [facility] Comment on above: Performed By: #### U MICRO, ERUR #### [facility] [address] [place] [address] Dr. Otf Rodriguez Urobilinogen Qn (U) 0.2 {Tian'U}/dL Normal 0.2 - 1. 0 [facility] Comment on above: Performed By: #### U MICRO, ERUR #### [facility] [address] [place] [address] Dr. Otf Rodriguez LACTATE/LACTIC ACIDon 2022 Lactate [Moles/Vol] 0.6 mmol/L Normal 0.4-1.9 [facility] Comment on above: Performed By: #### L ACT #### [facility] [address] [place] [address] Dr. Otf Rodriguez LIPASEon 01-11-2023 Lipase [Catalytic activity/Vol] 159.0 U/L Normal 73.0-393.0 [facility] Comment on above: Performed By: #### U MICRO, ERUR #### [facility] [address] [place] [address] Dr. Otf Rodriguez PROF 14(COMP METB)on 023 Albumin [Mass/Vol] 4.0 g/dL Normal 3.4-5.0 [facility] Comment on above: Performed By: #### U MICRO, ERUR #### [facility] [address] [place] [address] Dr. Otf Rodriguez Albumin/Globulin [Mass ratio] 1.1 {ratio} Normal [facility] Comment on above: Performed By: #### U MICRO, ERUR #### [facility] [address] [place] [address] Dr. Otf Rodriguez ALP [Catalytic activity/Vol] 128 U/L Critically high 46-116 [facility] Comment on above: Performed By: #### U MICRO, ERUR #### [facility] [address] [place] [address] Dr. Otf Rodriguez ALT [Catalytic activity/Vol] 20 U/L Normal 14-59 [facility] Comment on above: Performed By: #### U MICRO, ERUR #### [facility] [address] [place] [address] Dr. Otf Rodriguez Anion gap [Moles/Vol] 11.0 mmol/L Normal [facility] Comment on above: Performed By: #### U MICRO, ERUR #### [facility] [address] [address] [address] Otf Rodriguez AST [Catalytic activity/Vol] 19 U/L Normal 15-37 [facility] Comment on above: Performed By: #### U MICRO, ERUR #### [facility] [address] [address] [address] Otf Rodriguez Bilirubin [Mass/Vol] 0.4 mg/dL Normal 0.2-1.0 [facility] Comment on above: Performed By: #### U MICRO, ERUR #### [facility] [address] [address] [address] Otf Rodriguez Calcium [Mass/Vol] 9.2 mg/dL Normal 8.5-10.1 [facility] Comment on above: Performed By: #### U MICRO, ERUR #### [facility] [address] [place] [address] Dr. Otf Rodriguez Chloride [Moles/Vol] 99 mmol/L Normal 98-107 [facility] Comment on above: Performed By: #### U MICRO, ERUR #### [facility] [address] [address] [address] Otf Rodriguez CO2 [Moles/Vol] 29.7 mmol/L Normal 21.0-32.0 [facility] Comment on above: Performed By: #### U MICRO, ERUR #### [facility] [address] [place] [address] Dr. Otf Rodriguez Creatinine [Mass/Vol] 0.71 mg/dL Normal 0.55-1.02 [facility] Comment on above: Performed By: #### U MICRO, ERUR #### [facility] [address] [address] [address] Otf Rodriguez EGFR-AF OMANI >60 Normal >=60 [facility] Comment on above: Performed By: #### U MICRO, ERUR #### [facility] [address] [address] [address] Otf Rodriguez EGFR-NON AF OMANI >60 Normal >=60 [facility] Comment on above: Performed By: #### U MICRO, ERUR #### [facility] [address] [address] [address] Otf Rodriguez Globulin (S) [Mass/Vol] 3.6 g/dL Normal [facility] Comment on above: Performed By: #### U MICRO, ERUR #### [facility] [address] [address] [address] Otf Rodriguez Glucose [Mass/Vol] 129 mg/dL Critically high 74-106 [facility] Comment on above: Performed By: #### U MICRO, ERUR #### [facility] [address] [address] [address] Otf Rodriguez Potassium [Moles/Vol] 3.7 mmol/L Normal 3.5-5.1 [facility] Comment on above: Performed By: #### U MICRO, ERUR #### [facility] [address] [place] [address] Dr. Otf Rodriguez Protein [Mass/Vol] 7.6 g/dL Normal 6.4-8.2 [facility] Comment on above: Performed By: #### U MICRO, ERUR #### [facility] [address] [place] [address] Dr. Otf Rodriguez Sodium [Moles/Vol] 136 mmol/L Normal 136-145 [facility] Comment on above: Performed By: #### U MICRO, ERUR #### [facility] [address] [place] [address] Dr. Otf Rodriguez Urea nitrogen [Mass/Vol] 11.0 mg/dL Normal 7.0-18.0 [facility] Comment on above: Performed By: #### U MICRO, ERUR #### [facility] [address] [place] [address] Dr. Otf Rodriguez Urea nitrogen/Creatinine [Mass ratio] 15.5 mg/mg Normal [facility] Comment on above: Performed By: #### U MICRO, ERUR #### [facility] [address] [place] [address] Dr. Otf Rodriguez TROPONIN, HIGH SENSITIVITYon 01-11-2023 HSTROP 11.8 pg/mL Normal 4.0-51.3 [facility] Comment on above: Result Comment: CUT- OFF POINTS HAVE BEEN ESTABLISHED BASED ON THE FOURTH UNIVERSAL DEFINITIONS OF MYOCARDIAL INFARCTION. THE UPPER REFERENCE LIMIT (URL) OF TROPONIN, DEFINED THE 99TH PERCENTILE OF cTnI DISTRIBUTION IN A REFERENCE POPULATION, HAS BEEN CONFIRMED THE DECISION THRESHOLD FOR IA DIAGNOSIS. Performed By: #### U MICRO, ERUR #### [facility] [address] [place] [address] Dr. Otf Rodriguez URINE MICROSCOPIC ONLYon BACTERIA NONE SEEN Normal NONE SEEN [facility] Comment on above: Performed By: #### U MICRO, ERUR #### [facility] [address] [place] [address] Dr. Otf Rodriguez Bacteria identified Cx Nom (U) NOT INDICATED Normal [facility] Comment on above: Performed By: #### U MICRO, ERUR #### [facility] [address] [place] [address] Dr. Otf Rodriguez CAST NONE SEEN Normal NONE SEEN [facility] Comment on above: Performed By: #### U MICRO, ERUR #### [facility] [address] [place] [address] Dr. Otf Rodriguez Crystals LM Nom (Urine sed) NONE SEEN Normal NONE SEEN [facility] Comment on above: Performed By: #### U MICRO, ERUR #### [facility] [address] [place] [address] Dr. Otf Rodriguez Epithelial cells LM Ql (Urine sed) NONE SEEN Normal NONE SEEN /RARE [facility] Comment on above: Performed By: #### U MICRO, ERUR #### [facility] [address] [place] [address] Dr. Otf Rodriguez MUCOUS NONE SEEN Normal NONE SEEN [facility] Comment on above: Performed By: #### U MICRO, ERUR #### [facility] [address] [place] [address] Dr. Otf Rodriguez RBC 0-2 Normal 0-2 [facility] Comment on above: Performed By: #### U MICRO, ERUR #### [facility] [address] [place] [address] Dr. Otf Rodriguez WBC 0-2 Abnormal NONE SEEN [facility] Comment on above: Performed By: #### U MICRO, ERUR #### [facility] [address] [address] [address] Otf Rodriguez MRI CSPINE WO CONon 10-16-20 MRI CSPINE WO CON EXAMINATION: MRI CSPINE WO CON HISTORY: Neck pain COMPARISON: No relevant comparison available. TECHNIQUE: A variety of imaging planes and parameters were utilized for visualization of suspected pathology. FINDINGS: CRANIOCERVICAL AREA: Normal foramen magnum with no Chiari malformation. PARASPINAL AREA: Normal with no visible mass. BONES: Normal alignment with no acute fracture or spondylolisthesis. Anterior fusion C4-C6 with metallic susceptibility artifact. CORD: Normal caliber, contour, and signal intensity. CERVICAL DISC LEVELS: C2-C3: Disc desiccation. No significant disc bulge or herniation. No central or foraminal stenosis C3-C4: Disc space narrowing and disc desiccation. Moderate bilateral foraminal spondylosis. Moderate narrowing of the central canal. Moderate to severe bilateral foraminal stenosis C4-C5: Anterior fusion. No significant disc bulge or herniation. Congenitally small central canal. No definite foraminal stenosis C5-C6: Anterior fusion. No significant disc bulge or herniation. Congenitally small central canal. No definite foraminal stenosis C6-C7: Disc space narrowing and desiccation. Mild diffuse disc/osteophyte complex. Congenitally small central canal. No definite foraminal stenosis C7-T1:. Disc space narrowing and disc desiccation. Endplate sclerosis. Mild diffuse disc/osteophyte complex. No central canal stenosis. 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 Moderate bilateral C3-C4 foraminal stenosis Electronically authenticated by: CRISTIANE SMIPSON Date: 2022-10-16 10:04 Normal The [facility] CT cervical spine wo conon 1 12-10-2021 CT cervical spine wo con [facility] [address] [place] [address] CT Scan Report Signed Patient: Nya Jiang MR#: [id number] : 1945 Acct:[id number] Age/Sex: 77 / F ADM Date: 10/10/22 Loc: ER Room: Type: [facility] ER Attending Dr: Copies to: Marek Rolle APRN Ordering Provider: Marek Rolle APRN Date of Service: 10/10/22 CT/CT cervical spine wo con: pain in neck w movement CT CERVICAL SPINE WITHOUT CONTRAST WITH 3D RECONSTRUCTIONS: CLINICAL HISTORY: Neck pain for the past 2 weeks. Previous fusion. COMPARISON: Plain films 03/06/2009 TECHNIQUE: Spiral axial unenhanced images were obtained through the cervical spine. Sagittal, coronal and 3D volume-rendered reconstructions were also reviewed. This CT exam was performed using one or more following dose reduction techniques: Automated exposure control, adjustment of the mA and/or kV according to patient size, or use of iterative reconstruction technique. FINDINGS: There is an anterior plate and screws extending from C4 through C6. There is some associated streak artifact. There are no acute fractures. There is minimal anterolisthesis of C5 on C6. There is slight disc space narrowing at C3-4 and mild to moderate at C6-7 and C7-T1. Mild endplate spurring and bilateral facet disease are seen. The atlantoaxial relationship is maintained. No prevertebral soft tissue swelling is noted. There are shotty cervical lymph nodes. Carotid artery plaque is present, greater on the right. The thyroid lobes are slightly heterogeneous. There is scarring at the lung apices. At C2-3, there is mild disco-osteophytic bulging with slight thecal sac effacement. There is mild to moderate right foraminal impingement. At C3-4, there is mild disco-osteophytic bulging and facet hypertrophy, greater on the left. There is mild thecal sac effacement. There is at least moderate narrowing of the neural foramen on both sides, greater on the left. At C4-5, there is minimal disco-osteophytic bulging and mild thecal sac effacement. There is also mild to potentially moderate narrowing of the neural foramen, greater on the left. At C5-6, there is disco-osteophytic bulging and a tiny central/left parasagittal disco-osteophytic complex where there is mild thecal sac effacement and potential borderline crowding of the cord. There is mild to moderate foraminal impingement, right side worse than left. At C6-7, there is mild disco-osteophytic bulging which is slightly asymmetric through the right neural foramen. Mild thecal sac effacement is present. Mild to moderate right foraminal encroachment is seen. There is slight disco-osteophytic bulging at the cervical thoracic junction where there is minor thecal sac effacement and mild foraminal encroachment. 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 Impression dictated by: Neema Niño M.D.10/10/2022 11:20 AM Dictation Location: [place] [address] Transcribed By: [facility] 10/10/22 1120 Dictated By: Neema Niño MD 10/10/22 1110 Signed By: 10/10/22 1120 [facility] XR CSPINE 2_3 VIEWSon 2021 XR CSPINE 2_3 VIEWS EXAMINATION: XR CSPINE 2_3 VIEWS HISTORY: Pain COMPARISON: No relevant comparison available. FINDINGS: BONES: Stable fusion C4-C6. No mechanical failure. Mild degenerative changes DISC SPACES: Normal. No significant disc height narrowing, subluxation, or endplate abnormality. PARASPINOUS: Negative. No paraspinous abnormality is seen. OTHER: Negative. IMPRESSION: Stable fusion C4-C6 Electronically authenticated by: CRISTIANE SIMPSON Date: 2022-10-01 12:07 Normal [facility] CULTURE WOUNDon 09-15-2022 CULTURE WOUND Culture Observations: No growth of aerobes at 48 hours. Culture Observations: No growth of anaerobes at 72 hours. Normal [facility] Comment on above: Performed By: #### W OUNDCX #### [facility] [address] [address] [address] Otf Rodriguez GRAM STAINon 09-15-2022 COMMENTS NO ORGANISMS OBSERVED Normal [facility] Comment on above: Performed By: #### G STAIN #### [facility] [address] [address] [address] Otf Rodriguez DIPHTHEROIDS Normal [facility] Comment on above: Performed By: #### G STAIN #### [facility] [address] [address] [address] Otf Rodriguez EPITHELIALS Normal [facility] Comment on above: Performed By: #### G STAIN #### [facility] [address] [address] [address] Otf Rodriguez FUNGAL ELEMENTS Normal [facility] Comment on above: Performed By: #### G STAIN #### [facility] [address] [address] [address] Otf Rodriguez GRAM NEG BACILLI Normal The [facility] Comment on above: Performed By: #### G STAIN #### [facility] [address] [address] [address] Otf MOYA NEG DIPPLOCOCCI Normal [facility] Comment on above: Performed By: #### G STAIN #### [facility] [address] [address] [address] Otf Rodriguez GRAM POS BACILLI Normal [facility] Comment on above: Performed By: #### G STAIN #### [facility] [address] [place] [address] Dr. Otf Rodriguez GRAM POSITIVE COCCI Normal [facility] Comment on above: Performed By: #### G STAIN #### [facility] [address] [address] [address] Otf Rodriguez GRAM STAIN SOURCE Lt 4th Toe Abscess Normal [facility] Comment on above: Performed By: #### G STAIN #### [facility] [address] [address] [address] Otf Rodriguez GS_DIPTH Normal [facility] Comment on above: Performed By: #### G STAIN #### [facility] [address] [address] [address] Otf Rodriguez WBC NONE SEEN Normal [facility] Comment on above: Performed By: #### G STAIN #### [facility] [address] [address] [address] Otf Rodriguez AMYLASEon 07-14-2021 AMYL <30 Critically low 31-110 [facility] Comment on above: Performed By: #### C MP, DHIRAJ, LIPA #### [facility] [address] [address] Jasper Bethea CARDIAC NATA 3-6on 1 CK [Catalytic activity/Vol] 194 U/L Critically high 30-135 [facility] Comment on above: Performed By: #### C VDTBH #### [facility] [address] [place], [place] [id number] Jasper Bethea CK.MB [Mass/Vol] 0.97 ng/mL Normal <=2.37 [facility] Comment on above: Performed By: #### C VDTBH #### [facility] [address] [place] [address] Jasper Bethea HSTROP 16.0 pg/mL Normal 4.0-35.5 [facility] Comment on above: Result Comment: CUT- OFF POINTS HAVE BEEN ESTABLISHED BASED ON THE FOURTH UNIVERSAL DEFINITIONS OF MYOCARDIAL INFARCTION. THE UPPER REFERENCE LIMIT (URL) OF TROPONIN, DEFINED THE 99TH PERCENTILE OF cTnI DISTRIBUTION IN A REFERENCE POPULATION, HAS BEEN CONFIRMED THE DECISION THRESHOLD FOR IA DIAGNOSIS. Performed By: #### C VDTBH #### [facility] [address] [place] [address] Jasper Bethea CBC AUTO DIFFon 07-14-2021 BASO # 0.0 103/ul Normal 0.0-0.1 [facility] Comment on above: Performed By: #### C VDTBH #### [facility] [address] [place] [address] Jasper Bethea Basophils/100 WBC (Bld) 0.3 % Normal 0.2-2.0 [facility] Comment on above: Performed By: #### C VDTBH #### [facility] [address] [place] [address] Jasper Bethea EO # 0.0 103/ul Normal 0.0-0.7 [facility] Comment on above: Performed By: #### C VDTBH #### [facility] [address] [place], [place] [id number] Jasper Neema Eosinophils/100 WBC (Bld) 0.0 % Critically low 0.9-7.0 [facility] Comment on above: Performed By: #### C VDTBH #### [facility] [address] [place], [place] [id number] Jasper Bethea Erythrocyte distribution width (RBC) [Ratio] 13.2 % Normal 11.0-15.0 [facility] Comment on above: Performed By: #### C VDTBH #### [facility] [address] [place] [address] Jasper Bethea Hematocrit (Bld) [Volume fraction] 42.6 % Normal 36.0-48.0 [facility] Comment on above: Performed By: #### C VDTBH #### [facility] [address] [place] [address] Jasper Bethea Hemoglobin (Bld) [Mass/Vol] 13.7 g/dL Normal 12.0-16.0 [facility] Comment on above: Performed By: #### C VDTBH #### [facility] [address] [place] [address] Jasper Bethea IG # 0.03 10e3/ul Normal 0.00-0.03 [facility] Comment on above: Performed By: #### C VDTB #### [facility] [address] [place] [address] Jasperjanet Bethea IG % 0.3 % Normal 0.0-0.5 [facility] Comment on above: Performed By: #### C VDTBH #### [facility] [address] [place] [address] Jasper Bethea LYMPH # 1.1 103/ul Critically low 1.2-3.8 [facility] Comment on above: Performed By: #### C VDTBH #### [facility] [address] [place] [address] Jasper Bethea Lymphocytes/100 WBC (Bld) 10.0 % Critically low 20.5-60.0 [facility] Comment on above: Performed By: #### C VDTBH #### [facility] [address] [place] [address] Jasper Bethea MANUAL DIFF REQ NO Normal [facility] Comment on above: Performed By: #### C VDTBH #### [facility] [address] [place] [address] Jasper Neema MCH (RBC) [Entitic mass] 27.6 pg Normal 26.7-34.0 [facility] Comment on above: Performed By: #### C VDTBH #### [facility] [address] [place], [place] [id number] Jasper Bethea MCHC (RBC) [Mass/Vol] 32.2 g/dL Normal 29.9-35.2 [facility] Comment on above: Performed By: #### C VDTBH #### [facility] [address] [place] [address] Jasper Neema MCV (RBC) [Entitic vol] 85.9 fL Normal 81.0-99.0 [facility] Comment on above: Performed By: #### C VDTBH #### [facility] [address] [place] [address] Jasper Bethea MONO # 0.6 103/ul Normal 0.3-0.8 [facility] Comment on above: Performed By: #### C VDTBH #### [facility] [address] [place] [address] Jasper Neema Monocytes/100 WBC (Bld) 5.4 % Normal 1.7-12.0 [facility] Comment on above: Performed By: #### C VDTBH #### [facility] [address] [place] [address] Jasper Bethea NEUT # 9.4 103/ul Critically high 1.4-6.5 [facility] Comment on above: Performed By: #### C VDTBH #### [facility] [address] [place] [address] Jasper Neema Neutrophils/100 WBC (Bld) 84.0 % Critically high 43.0-75.0 [facility] Comment on above: Performed By: #### C VDTBH #### [facility] [address] [place], [place] [id number] Jasper Bethea Platelet mean volume (Bld) [Entitic vol] 8.7 fL Critically low 9.5-13.5 [facility] Comment on above: Performed By: #### C VDTBH #### [facility] [address] [place] [address] Jasper Bethea PLT 256 103/ul Normal 150-450 [facility] Comment on above: Performed By: #### C VDTBH #### [facility] [address] [place], [place] [id number] Jasper Bethea RBC 4.96 106/ul Normal 4.20-5.40 [facility] Comment on above: Performed By: #### C VDTBH #### [facility] [address] [place], [place] [id number] Jasper Bethea WBC 11.1 103/ul Critically high 4.0-11.0 [facility] Comment on above: Performed By: #### C VDTBH #### [facility] [address] [place] [address] Jasper Bethea CULTURE URINEon 07-14-2021 CULTURE URINE Culture Observations: GREATER THAN TWO ORGANISMS PRESENT. PLEASE RESUBMIT CLEAN CATCH MID-STREAM URINE IF CLINICALLY INDICATED. Normal [facility] Comment on above: Performed By: #### C VDTBH #### [facility] [address] [place] [address] Jasper Bethea LIPASEon 07-14-2021 Lipase [Catalytic activity/Vol] 120.0 U/L Normal 23.0-300.0 [facility] Comment on above: Performed By: #### C VDTBH #### [facility] [address] [place], [place] [id number] Jasper Bethea PROF 14(COMP METB)on 021 Albumin [Mass/Vol] 3.0 g/dL Critically low 3.5-5.0 [facility] Comment on above: Performed By: #### C MING DHIRAJ, LIPA #### [facility] [address] [place], [place] [id number] Jasper Bethea Albumin/Globulin [Mass ratio] 0.8 {ratio} Normal [facility] Comment on above: Performed By: #### C MP DHIRAJ, LIPA #### [facility] [address] [place] [address] Jasper Bethea ALP [Catalytic activity/Vol] 98 U/L Normal 38-126 [facility] Comment on above: Performed By: #### C MP, DHIRAJ, LIPA #### [facility] [address] [place], [place] [address] Jasper Neema ALT [Catalytic activity/Vol] 18 U/L Normal 9-52 [facility] Comment on above: Performed By: #### C MP, DHIRAJ, LIPA #### [facility] [address] [id number] Jasper Neema Anion gap [Moles/Vol] 12.7 mmol/L Normal Th [facility] Comment on above: Performed By: #### C MP, DHIRAJ, LIPA #### [facility] [address] [id number] Japser Neema AST [Catalytic activity/Vol] 24 U/L Normal 14-36 [facility] Comment on above: Performed By: #### C MP, DHIRAJ, LIPA #### [facility] [address] [place] [address] Jasper Neema Bilirubin [Mass/Vol] 0.4 mg/dL Normal 0.2-1.3 [facility] Comment on above: Performed By: #### C MP, DHIRAJ, LIPA #### [facility] [address] [place] [address] Jasper Neema Calcium [Mass/Vol] 8.5 mg/dL Normal 8.4-10.2 [facility] Comment on above: Performed By: #### C MP, DHIRAJ, LIPA #### [facility] [address] [place] [address] Jasper Neema Chloride [Moles/Vol] 105 mmol/L Normal 98-107 [facility] Comment on above: Performed By: #### C MP, DHIRAJ, LIPA #### [facility] [address] [id number] Jasper Neema CO2 [Moles/Vol] 28.7 mmol/L Normal 22.0-30.0 [facility] Comment on above: Performed By: #### C MP, DHIRAJ, LIPA #### [facility] [address] [address] Jasper Neema Creatinine [Mass/Vol] 0.88 mg/dL Normal 0.52-1.04 [facility] Comment on above: Performed By: #### C MP, DHIRAJ, LIPA #### [facility] [address] [place] [address] Jasper Neema EGFR-AF OMANI >60 Normal >=60 [facility] Comment on above: Performed By: #### C MP, DHIRAJ, LIPA #### [facility] [address] [place] [address] Jasper Neema EGFR-NON AF OMANI >60 Normal >=60 [facility] Comment on above: Performed By: #### C MP, DHIRAJ, LIPA #### [facility] [address] [place] [address] Jasper Neema Globulin (S) [Mass/Vol] 3.6 g/dL Normal T [facility] Comment on above: Performed By: #### C MP, DHIRAJ, LIPA #### [facility] [address] [place] [address] Jasper Neema Glucose [Mass/Vol] 105 mg/dL Normal 74-106 [facility] Comment on above: Performed By: #### C MING, DHIRAJ, LIPA #### [facility] [address] [place] [address] Jasper Neema Potassium [Moles/Vol] 4.4 mmol/L Normal 3.4-5.0 [facility] Comment on above: Performed By: #### C MP, DHIRAJ, LIPA #### [facility] [address] [place] [address] Jasper Neema Protein [Mass/Vol] 6.6 g/dL Normal 6.1-8.2 [facility] Comment on above: Performed By: #### C MP, DHIRAJ, LIPA #### [facility] [address] [place] [address] Jasper Neema Sodium [Moles/Vol] 142 mmol/L Normal 137-145 [facility] Comment on above: Performed By: #### C MP, DHIRAJ, LIPA #### [facility] [address] [place] [address] Jasper Neema Urea nitrogen [Mass/Vol] 15.0 mg/dL Normal 7.0-17.0 [facility] Comment on above: Performed By: #### C MP, DHIRAJ, LIPA #### [facility] [address] [place], [place] [id number] Jasper Neema Urea nitrogen/Creatinine [Mass ratio] 17.0 mg/mg Normal [facility] Comment on above: Performed By: #### C MP, DHIRAJ, LIPA #### [facility] [address] [place], [place] [id number] Jasper Neema AMYLASEon 07-13-2021 AMYL <30 Critically low 31-110 [facility] Comment on above: Performed By: #### A MY, CMP, LIPA #### [facility] [address] [place], [place] [id number] Jasper Neema CBC AUTO DIFFon 07-13-2021 BASO # 0.0 103/ul Normal 0.0-0.1 [facility] Comment on above: Performed By: #### C BC #### [facility] [address] [place], [place] [id number] Jasper Neema Basophils/100 WBC (Bld) 0.3 % Normal 0.2-2.0 [facility] Comment on above: Performed By: #### C BC #### [facility] [address] [place], [place] [id number] Jasper Neema EO # 0.2 103/ul Normal 0.0-0.7 [facility] Comment on above: Performed By: #### C BC #### [facility] [address] [place], [place] [id number] Jasper Neema Eosinophils/100 WBC (Bld) 1.7 % Normal 0.9-7.0 [facility] Comment on above: Performed By: #### C BC #### [facility] [address] [place], [place] [id number] Jasper Neema Erythrocyte distribution width (RBC) [Ratio] 12.8 % Normal 11.0-15.0 [facility] Comment on above: Performed By: #### C BC #### [facility] [address] [place], [place] [id number] Jasper Neema Hematocrit (Bld) [Volume fraction] 43.7 % Normal 36.0-48.0 [facility] Comment on above: Performed By: #### C BC #### [facility] [address] [place] [address] Jasper Bethea Hemoglobin (Bld) [Mass/Vol] 14.3 g/dL Normal 12.0-16.0 [facility] Comment on above: Performed By: #### C BC #### [facility] [address] [place] [address] Jasperjanet Bethea IG # 0.04 10e3/ul Critically high 0.00-0.03 [facility] Comment on above: Performed By: #### C BC #### [facility] [address] [place] [address] Jasperjanet Bethea IG % 0.4 % Normal 0.0-0.5 [facility] [facility] Comment on above: Performed By: #### C BC #### [facility] [address] [place] [address] Jasper Bethea LYMPH # 1.6 103/ul Normal 1.2-3.8 [facility] Comment on above: Performed By: #### C BC #### [facility] [address] [place] [address] Jasper Bethea Lymphocytes/100 WBC (Bld) 14.2 % Critically low 20.5-60.0 [facility] Comment on above: Performed By: #### C BC #### [facility] [address] [place] [address] Jasper Bethea MANUAL DIFF REQ NO Normal [facility] Comment on above: Performed By: #### C BC #### [facility] Laboratory [address] [place], [place] [id number] Jasper Bethea MCH (RBC) [Entitic mass] 27.6 pg Normal 26.7-34.0 [facility] Comment on above: Performed By: #### C BC #### [facility] [address] [place] [address] Jasper Bethea MCHC (RBC) [Mass/Vol] 32.7 g/dL Normal 29.9-35.2 [facility] Comment on above: Performed By: #### C BC #### [facility] [address], [place] [address] Jasper Bethea MCV (RBC) [Entitic vol] 84.2 fL Normal 81.0-99.0 [facility] Comment on above: Performed By: #### C BC #### [facility] [address] [id number] Jasper Bethea MONO # 0.8 103/ul Normal 0.3-0.8 [facility] Comment on above: Performed By: #### C BC #### [facility] [address] [id number] Jasper Bethea Monocytes/100 WBC (Bld) 7.1 % Normal 1.7-12.0 [facility] Comment on above: Performed By: #### C BC #### [facility] [address] [place], [place] [id number] Jasper Fitzgeralden NEUT # 8.3 103/ul Critically high 1.4-6.5 [facility] Comment on above: Performed By: #### C BC #### [facility] [address] [place], [place] [id number] Jasper Bethea Neutrophils/100 WBC (Bld) 76.3 % Critically high 43.0-75.0 [facility] Comment on above: Performed By: #### C BC #### [facility] [address] [place], [place] [id number] Jasper Bethea Platelet mean volume (Bld) [Entitic vol] 8.5 fL Critically low 9.5-13.5 [facility] Comment on above: Performed By: #### C BC #### [facility] [address] [id number] Jasper Neema PLT 261 103/ul Normal 150-450 [facility] Comment on above: Performed By: #### C BC #### [facility] [address] [place], [place] [id number] Jasper Neema RBC 5.19 106/ul Normal 4.20-5.40 [facility] Comment on above: Performed By: #### C BC #### [facility] [address] [address] Jasper Neema WBC 10.9 103/ul Normal 4.0-11.0 [facility] Comment on above: Performed By: #### C BC #### [facility] [address] [place], [place] [id number] Jasper Neema LIPASEon 07-13-2021 Lipase [Catalytic activity/Vol] 575.0 U/L Critically high 23.0-300.0 [facility] Comment on above: Performed By: #### A MY, CMP, LIPA #### [facility] [address] [place], [place] [id number] Jasperjanet Fitzgeralden PROF 14(COMP METB)on 021 Albumin [Mass/Vol] 3.1 g/dL Critically low 3.5-5.0 [facility] Comment on above: Performed By: #### A MY, CMP, LIPA #### [facility] [address] [place] [address] Jasper Neema Albumin/Globulin [Mass ratio] 0.9 {ratio} Normal [facility] Comment on above: Performed By: #### A MY, CMP, LIPA #### [facility] [address] [place] [address] Jasper Neema ALP [Catalytic activity/Vol] 103 U/L Normal 38-126 [facility] Comment on above: Performed By: #### A MY, CMP, LIPA #### [facility] [address] [place] [address] Jasper Neema ALT [Catalytic activity/Vol] 22 U/L Normal 9-52 [facility] Comment on above: Performed By: #### A MY, CMP, LIPA #### [facility] [address] [place] [address] Jasper Neema Anion gap [Moles/Vol] 9.2 mmol/L Normal [facility] Comment on above: Performed By: #### A MY, CMP, LIPA #### [facility] [address] [place] [address] Jasper Neema AST [Catalytic activity/Vol] 18 U/L Normal 14-36 [facility] Comment on above: Performed By: #### A MY, CMP, LIPA #### [facility] [address] [place] [address] Jasper Neema Bilirubin [Mass/Vol] 0.5 mg/dL Normal 0.2-1.3 [facility] Comment on above: Performed By: #### A MY, CMP, LIPA #### [facility] [address] [place] [address] Jasper Neema Calcium [Mass/Vol] 8.4 mg/dL Normal 8.4-10.2 [facility] Comment on above: Performed By: #### A MY, CMP, LIPA #### [facility] [address] [place] [address] Jasper Neema Chloride [Moles/Vol] 106 mmol/L Normal 98-107 [facility] Comment on above: Performed By: #### A MY, CMP, LIPA #### [facility] [address] [place] [address] Jasper Neema CO2 [Moles/Vol] 31.9 mmol/L Critically high 22.0-30.0 [facility] Comment on above: Performed By: #### A MY, CMP, LIPA #### [facility] [address] [place] [address] Jasper Neema Creatinine [Mass/Vol] 0.80 mg/dL Normal 0.52-1.04 [facility] Comment on above: Performed By: #### A MY, CMP, LIPA #### [facility] [address] [place] [address] Jasper Neema EGFR-AF OMANI >60 Normal >=60 [facility] Comment on above: Performed By: #### A MY, CMP, LIPA #### [facility] [address] [place] [address] Jasper Neema EGFR-NON AF OMANI >60 Normal >=60 [facility] Comment on above: Performed By: #### A MY, CMP, LIPA #### [facility] [address] [place] [address] Jasper Neema Globulin (S) [Mass/Vol] 3.4 g/dL Normal [facility] Comment on above: Performed By: #### A MY, CMP, LIPA #### [facility] [address] [address] Jasper Neema Glucose [Mass/Vol] 113 mg/dL Critically high 74-106 [facility] Comment on above: Performed By: #### A MY, CMP, LIPA #### [facility] [address] [address] Jasper Neema Potassium [Moles/Vol] 4.1 mmol/L Normal 3.4-5.0 [facility] Comment on above: Performed By: #### A MY, CMP, LIPA #### [facility] [address] [place] [address] Jasper Neema Protein [Mass/Vol] 6.5 g/dL Normal 6.1-8.2 [facility] Comment on above: Performed By: #### A MY, CMP, LIPA #### [facility] [address] [place] [address] Jasper Neema Sodium [Moles/Vol] 143 mmol/L Normal 137-145 [facility] Comment on above: Performed By: #### A MY, CMP, LIPA #### [facility] [address] [place] [address] Jasper Neema Urea nitrogen [Mass/Vol] 11.0 mg/dL Normal 7.0-17.0 [facility] Comment on above: Performed By: #### A MY, CMP, LIPA #### [facility] [address] [place] [address] Jasper Neema Urea nitrogen/Creatinine [Mass ratio] 13.8 mg/mg Normal [facility] Comment on above: Performed By: #### A MY, CMP, LIPA #### [facility] [address] [place] [address] Jasper Neema AMYLASEon 07-12-2021 Amylase [Catalytic activity/Vol] 46 U/L Normal 31-110 [facility] Comment on above: Performed By: #### A MY #### [facility] [address] [place] [address] Jasper Bethea ASYMPTOMATIC COVID-19 ANTIGE Non 07-12-2021 EUA Statement SEE BELOW Normal [facility] Comment on above: Result Comment: This test has not been FDA cleared or approved, but has been authorized by the FDA under an Emergency Use Authorization (EUA) for use by authorized laboratories certified under CLIA that meet the requirements to perform moderate or high complexity testing. This test has been authorized only for the detection of proteins from SARS-CoV-2, not for any other viruses or pathogens. The emergency use of this test is authorized for the duration of the declaration that circumstances exist justifying the authorization of emergency use of in vitro diagnostic tests for detection and/or diagnosis of Covid-19 under section 564(b)(1) of the Act, 21 U.S.C. 360bbb-3(b)(1), unless the declaration is terminated or authorization is revoked sooner. Performed By: #### C VDTB #### [facility] [address] [place] [address] Jasper Neema SARS-CoV-2 (COVID-19) RNA UMESH+probe Ql (Unsp spec) Negative Normal NEGATIVE [facility] Comment on above: Result Comment: Nega tive results are presumptive. They do not preclude infection and should not be used as the sole basis for treatment decisions. Additional confirmatory testing by a molecular method should be considered. Performed By: #### C VDTB #### [facility] [address] [place] [address] Jasper Bethea CBC AUTO DIFFon 07-12-2021 BASO # 0.1 103/ul Normal 0.0-0.1 [facility] Comment on above: Performed By: #### C MADIE LAI #### [facility] Laboratory [address] [place] [address] Neema Basophils/100 WBC (Bld) 0.5 % Normal 0.2-2.0 [facility] Comment on above: Performed By: #### C MADIE LAI #### [facility] [address] [place] [address] Jasper Neema EO # 0.2 103/ul Normal 0.0-0.7 [facility] Comment on above: Performed By: #### C MADIE LAI #### [facility] [address] [place] [address] Jasper Neema Eosinophils/100 WBC (Bld) 1.6 % Normal 0.9-7.0 [facility] Comment on above: Performed By: #### C MADIE LAI #### [facility] [address] [place] [address] Jasper Neema Erythrocyte distribution width (RBC) [Ratio] 12.7 % Normal 11.0-15.0 [facility] Comment on above: Performed By: #### C MADIE LAI #### [facility] [address] [place] [address] Jasper Neema Hematocrit (Bld) [Volume fraction] 45.7 % Normal 36.0-48.0 [facility] Comment on above: Performed By: #### C MADIE LAI #### [facility] [address] [place] [address] Jasper Neema Hemoglobin (Bld) [Mass/Vol] 15.4 g/dL Normal 12.0-16.0 [facility] Comment on above: Performed By: #### C MADIE LAI #### [facility] [address] [place] [address] Jasper Neema IG # 0.03 10e3/ul Normal 0.00-0.03 [facility] Comment on above: Performed By: #### C MADIE LAI #### [facility] [address] [place] [address] Jasper Neema IG % 0.3 % Normal 0.0-0.5 [facility] Comment on above: Performed By: #### C MADIE LAI #### [facility] [address] [place] [address] Jasper Neema LYMPH # 2.0 103/ul Normal 1.2-3.8 [facility] Comment on above: Performed By: #### C MADIE LAI #### [facility] [address] [place], [place] [id number] Jasper Neema Lymphocytes/100 WBC (Bld) 18.0 % Critically low 20.5-60.0 [facility] Comment on above: Performed By: #### C MING LIPA #### [facility] [address] [place], [place] [id number] Jasper Neema MANUAL DIFF REQ NO Normal [facility] Comment on above: Performed By: #### C MING, LIPA #### [facility] [address] [place] [address] Jasper Neema MCH (RBC) [Entitic mass] 27.6 pg Normal 26.7-34.0 [facility] Comment on above: Performed By: #### C MING, LIPA #### [facility] [address] [place] [address] Jasper Neema MCHC (RBC) [Mass/Vol] 33.7 g/dL Normal 29.9-35.2 [facility] Comment on above: Performed By: #### C MING, LIPA #### [facility] [address] [place] [address] Jasper Neema MCV (RBC) [Entitic vol] 82.0 fL Normal 81.0-99.0 [facility] Comment on above: Performed By: #### C MING, LIPA #### [facility] [address] [place] [address] Jasper Neema MONO # 0.7 103/ul Normal 0.3-0.8 [facility] Comment on above: Performed By: #### C MING, LIPA #### [facility] [address] [place] [address] Jasper Neema Monocytes/100 WBC (Bld) 6.4 % Normal 1.7-12.0 [facility] Comment on above: Performed By: #### C MING, LIPA #### [facility] [address] [place] [address] Jasper Neema NEUT # 8.0 103/ul Critically high 1.4-6.5 [facility] Comment on above: Performed By: #### C MP, LIPA #### [facility] [address], [place] [address] Jasper Bethea Neutrophils/100 WBC (Bld) 73.2 % Normal 43.0-75.0 [facility] Comment on above: Performed By: #### C MP, LIPA #### [facility] [address], [place] [address] Jasper Bethea Platelet mean volume (Bld) [Entitic vol] 8.4 fL Critically low 9.5-13.5 [facility] Comment on above: Performed By: #### C MP, LIPA #### [facility] [address] [address] Jasper Neema PLT 287 103/ul Normal 150-450 [facility] Comment on above: Performed By: #### C MP, LIPA #### [facility] [address] [address] Jasper Neema RBC 5.57 106/ul Critically high 4.20-5.40 [facility] Comment on above: Performed By: #### C MP, LIPA #### [facility] [address], [place] [address] Jasper Bethea WBC 10.9 103/ul Normal 4.0-11.0 [facility] Comment on above: Performed By: #### C MP, LIPA #### [facility] Laboratory [address] [place] [address] ABD/PELV W CONon 07-12-20 CT ABD/PELV W CON EXAMINATION: CT ABD/PELV W CON HISTORY: GENERALIZED ABDOMINAL PAIN ; acute left upper and lower quadrant pain COMPARISON: No relevant comparison available. TECHNIQUE: CT images were created with IV contrast. Axial, Coronal, and Sagittal images. Dose reduction techniques were achieved by using automated exposure control and/or adjustment of mA and/or kV according to patient size and/or use of iterative reconstruction technique. FINDINGS: LUNG BASES: No visible pulmonary or pleural disease. LIVER: No enlargement, atrophy, abnormal density, or significant focal lesion. BILIARY: No visible dilatation or calcification. PANCREAS: Mild haziness of the fat adjacent tail of pancreas. SPLEEN: Contains a small hypodensity favoring a cyst or hemangioma. ADRENALS: No mass or enlargement. KIDNEYS: Obstructed calyx versus cyst within mid body of right kidney, 1.8 cm. No stones BOWEL/MESENTERY: No appreciable mass. Unremarkable ureters. AORTA/VASCULAR: No aneurysm or dissection. RETROPERITONEUM: No mass or adenopathy. LYMPH NODES: No adenopathy. URINARY BLADDER: No visible focal wall thickening, lesion, or calculus. PELVIC ORGANS: Hysterectomy. ABDOMINAL WALL: No mass or hernia. BONES: No bony lesion or fracture. L3-L4 marked degenerative disc disease. OTHER: Negative. IMPRESSION: 1. Suspect mild pancreatitis. Electronically authenticated by: RAMYA IQBAL Date: 2021-07-12 13:00 Normal [facility] Covid-19 PCR (CVDTB)on 06-16 SARS-CoV-2 (COVID-19) RNA UMESH+probe Ql (Unsp spec) Not detected Normal NOT DETECTED [facility] Comment on above: Result Comment: This test is not yet approved or cleared by the [place] FDA. When there are no FDA-approved or cleared tests available, and other criteria are met, FDA can make tests available under an emergency access mechanism called an Emergency Use Authorization (EUA). The EUA for this test is supported by the Prop Setter of Health and Human Service's (HHS's) declaration that circumstances exist to justify the emergency use of in vitro diagnostics for the detection and/or diagnosis of the virus that causes COVID-19. This EUA will remain in effect (meaning this test can be used) for the duration of the COVID-19 declaration justifying emergency of IVDs, unless it is terminated or revoked by FDA (after which the test may no longer be used). When diagnostic testing is negative, the possibility of a false negative should be considered in the context of a patient's recent exposures and the presence of clinical signs and symptoms consistent with SARS-CoV-2. Performed By: #### C VDTB #### [facility] [address] [place] [address] Jasperjanet Bethea URINE PROFILEon 1 Bilirubin Ql (U) Negative Normal NEGATIVE [facility] Comment on above: Performed By: #### C VDTBH #### [facility] [address] [place] [address] Jasper Neema Clarity (U) CLEAR Normal CLEAR [facility] Comment on above: Performed By: #### C VDTB #### [facility] [address] [place] [address] Jasper Neema Color (U) LT. YELLOW Normal YELLOW [facility] Comment on above: Performed By: #### C VDTB #### [facility] [address] [place] [address] Jasper Neema ERUAHD A micrscopic examination will be performed if indicated. Normal [facility] Comment on above: Performed By: #### C VDTB #### [facility] [address] [place] [address] Jasper Neema Glucose Ql (U) Negative Normal NEGATIVE [facility] Comment on above: Performed By: #### C VDTB #### [facility] [address] [place] [address] Jasper Neema Hemoglobin Ql (U) TRACE-INTACT Abnormal NEGATIVE [facility] Comment on above: Performed By: #### C VDTB #### [facility] [address] [place] [address] Jasper Neema Ketones Ql (U) Negative Normal NEGATIVE [facility] Comment on above: Performed By: #### C VDTB #### [facility] [address] [place] [address] Jasper Neema LEUKOCYTES MODERATE Abnormal NEGATIVE [facility] Comment on above: Performed By: #### C VDTB #### [facility] [address] [place] [address] Jasper Neema Nitrite Ql (U) Negative Normal NEGATIVE [facility] Comment on above: Performed By: #### C VDTBH #### [facility] [address] [place] [address] Jasper Neema pH (U) 7.5 [pH] Normal 5-9 [facility] Comment on above: Performed By: #### C VDTBH #### [facility] [address] [place] [address] Jasper Neema SPEC GRAVITY 1.010 Normal 1.005-<=1.025 [facility] Comment on above: Performed By: #### C VDTBH #### [facility] [address] [place] [address] Jasper Bethea UA PROTEIN Negative Normal NEGATIVE/ TRACE [facility] Comment on above: Performed By: #### C VDTBH #### [facility] [address] [place], [place] [id number] Jasper Bethea UR MICRO IND INDICATED Normal [facility] Comment on above: Performed By: #### C NEETAH #### [facility] [address] [place] [address] Jasper Bethea Urobilinogen Qn (U) 0.2 {Tian'U}/dL Normal 0.2 - 1. 0 [facility] Comment on above: Performed By: #### C STEPHANYTBH #### [facility] [address] [place] [address] Jasper Bethea LACTATE/LACTIC ACIDon 2020 Lactate [Moles/Vol] mmol/L Critically low 0.7-2.0 [facility] Comment on above: Performed By: #### C STEPHANYTBH #### [facility] [address] [place] [address] Jasper Bethea LIPASEon 07-12-2021 Lipase [Catalytic activity/Vol] 1780.0 U/L Critically high 23.0-300.0 [facility] Comment on above: Result Comment: test repeated critical value verified Performed By: #### C MADIE LAI #### [facility] [address] [place] [address] Jasper Fitzgeralden PROF 14(COMP METB)on 021 Albumin [Mass/Vol] 3.5 g/dL Normal 3.5-5.0 [facility] Comment on above: Performed By: #### C MADIE LAI #### [facility] [address] [place] [address] Jasper Fitzgeralden Albumin/Globulin [Mass ratio] 0.9 {ratio} Normal [facility] Comment on above: Performed By: #### C MP, LIPA #### [facility] [address], [place] [address] Jasper Neema ALP [Catalytic activity/Vol] 120 U/L Normal 38-126 [facility] Comment on above: Performed By: #### C MP, LIPA #### [facility] [address] [id number] Jasper Neema ALT [Catalytic activity/Vol] 20 U/L Normal 9-52 [facility] Comment on above: Performed By: #### C MP, LIPA #### [facility] [address] [id number] Jasper Neema Anion gap [Moles/Vol] 10.3 mmol/L Normal [facility] Comment on above: Performed By: #### C MP, LIPA #### [facility] [address] [address] Jasper Neema AST [Catalytic activity/Vol] 19 U/L Normal 14-36 [facility] Comment on above: Performed By: #### C MING, LIPA #### [facility] Laboratory [address] [address] Jasper Neema Bilirubin [Mass/Vol] 0.4 mg/dL Normal 0.2-1.3 The [facility] Comment on above: Performed By: #### C MP, LIPA #### [facility] [address] [id number] Jasper Neema Calcium [Mass/Vol] 9.0 mg/dL Normal 8.4-10.2 The [facility] Comment on above: Performed By: #### C MP, LIPA #### [facility] [address] [address] Jasper Neema Chloride [Moles/Vol] 101 mmol/L Normal 98-107 The [facility] Comment on above: Performed By: #### C MP, LIPA #### [facility] [address] [id number] Jasper Neema CO2 [Moles/Vol] 32.7 mmol/L Critically high 22.0-30.0 The [facility] Comment on above: Performed By: #### C MP, LIPA #### [facility] [address] [id number] Jasper Neema Creatinine [Mass/Vol] 0.82 mg/dL Normal 0.52-1.04 The [facility] Comment on above: Performed By: #### C MING, LIPA #### [facility] [address] [id number] Jasper Neema EGFR-AF OMANI >60 Normal >=60 The [facility] Comment on above: Performed By: #### C MING, LIPA #### [facility] Laboratory [address] [place] [address] Jasper Neema EGFR-NON AF OMANI >60 Normal >=60 [facility] Comment on above: Performed By: #### C MING, LIPA #### [facility] Laboratory [address] [place] [address] Jasper Neema Globulin (S) [Mass/Vol] 3.9 g/dL Normal [facility] Comment on above: Performed By: #### C MING, LIPA #### [facility] Laboratory [address] [place] [address] Jasper Neema Glucose [Mass/Vol] 140 mg/dL Critically high 74-106 [facility] Comment on above: Performed By: #### C MING, LIPA #### [facility] Laboratory [address] [place] [address] Jasper Neema Potassium [Moles/Vol] 4.0 mmol/L Normal 3.4-5.0 [facility] Comment on above: Performed By: #### C MING, LIPA #### [facility] [address] [place] [address] Jasper Neema Protein [Mass/Vol] 7.4 g/dL Normal 6.1-8.2 The [facility] Comment on above: Performed By: #### C MING, LIPA #### [facility] [address] [place] [address] Jasper Neema Sodium [Moles/Vol] 140 mmol/L Normal 137-145 The [facility] Comment on above: Performed By: #### C MING, LIPA #### [facility] [address] [place] [address] Jasperjanet Bethea Urea nitrogen [Mass/Vol] 14.0 mg/dL Normal 7.0-17.0 The [facility] Comment on above: Performed By: #### C MADIE LAI #### [facility] Laboratory [address] [place] [address] Jasper Bethea Urea nitrogen/Creatinine [Mass ratio] 17.1 mg/mg Normal The [facility] Comment on above: Performed By: #### C MADIE LAI #### [facility] Laboratory [address] [place] [address] Jasper Bethea TROPONIN, HIGH SENSITIVITYon 07-12-2021 HSTROP 7.5 pg/mL Normal 4.0-35.5 The [facility] Comment on above: Result Comment: CUT- OFF POINTS HAVE BEEN ESTABLISHED BASED ON THE FOURTH UNIVERSAL DEFINITIONS OF MYOCARDIAL INFARCTION. THE UPPER REFERENCE LIMIT (URL) OF TROPONIN, DEFINED THE 99TH PERCENTILE OF cTnI DISTRIBUTION IN A REFERENCE POPULATION, HAS BEEN CONFIRMED THE DECISION THRESHOLD FOR IA DIAGNOSIS. Performed By: #### C VDTB #### [facility] [address] [place] [address] Jasper Neema URINE MICROSCOPIC ONLYon BACTERIA MODERATE Abnormal NONE SEEN The [facility] Comment on above: Performed By: #### C VDTB #### [facility] Laboratory [address] [place] [address] Jasper Neema Bacteria identified Cx Nom (U) INDICATED Normal The [facility] Comment on above: Performed By: #### C VDTBH #### [facility] Laboratory [address] [place] [address] Jasper Neema CAST NONE SEEN Normal NONE SEEN The [facility] Comment on above: Performed By: #### C VDTBH #### [facility] Laboratory [address] [place], [place] [id number] Jasper Neema Crystals LM Nom (Urine sed) NONE SEEN Normal NONE SEEN The [facility] Comment on above: Performed By: #### C VDTBH #### [facility] Laboratory [address] [place] [address] Jasper Neema Epithelial cells LM Ql (Urine sed) MANY Abnormal NONE SEEN /RARE The [facility] Comment on above: Performed By: #### C VDTBH #### [facility] [address] [place], [place] [address] Jasper Neema MUCOUS NONE SEEN Normal NONE SEEN The [facility] Comment on above: Performed By: #### C VDTBH #### [facility] [address] [place], [place] [address] Jasper Neema RBC 2-5 Abnormal 0-2 [facility] Comment on above: Performed By: #### C VDTBH #### [facility] [address] [place], [place] [address] Jasper Neema WBC 50-75 Abnormal NONE SEEN [facility] Comment on above: Performed By: #### C VDTBH #### [facility] [address] [place], [place] [address] Jasperjanet Fitzgeralden Vital Signs Date Time Vital Sign Value Performing Clinician Facility 08-08-2024 13:55-0400 Body height 152.[address] [facility] 08-08-2024 13:55-0400 Body mass index (BMI) [Ratio] 34.9 kg/m2 [facility] 08-08-2024 13:55-0400 Body weight 81.[address] [facility] 08-08-2024 13:55-0400 Diastolic blood pressure 83 mm[Hg] [facility] 08-08-2024 13:55-0400 Heart rate 84 /min [facility] 08-08-2024 13:55-0400 Systolic blood pressure 154 mm[Hg] [facility] 02-17-2024 10:51-0400 Body height 154.9 cm Rosita CLEMONS Work Phone: [facility] 02-17-2024 10:51-0400 Body mass index (BMI) [Ratio] 34.2 kg/m2 Rosita CLEMONS Work Phone: [facility] 02-17-2024 10:51-0400 Body weight 82.1 kg Rosita CLEMONS Work Phone: [facility] 02-17-2024 10:51-0400 Diastolic blood pressure 82 mm[Hg] Rosita Roynunu PA Work Phone: [employer] 02-17-2024 10:51-0400 Heart rate 93 /min Rosita Castillo PA Work Phone: [employer] 02-17-2024 10:51-0400 Respiratory rate 16 /min Rosita Castillo PA Work Phone: [employer] 02-17-2024 10:51-0400 SaO2% (BldA) [Mass fraction] 93 % Rosita Castillo PA Work Phone: [employer] 02-17-2024 10:51-0400 Systolic blood pressure 180 mm[Hg] Rosita Castillo PA Work Phone: [employer] 08-16-2023 10:45-0400 Body height 152.4 cm Cheyanne Gallardo Other [employer] Other 08-16-2023 10:45-0400 Body mass index (BMI) [Ratio] 34.76 kg/m2 Cheyanne Gallardo Other [employer] Other 08-16-2023 10:45-0400 Body weight 80.74 kg Cheyanne Gallardo Other [employer] Other 08-16-2023 10:45-0400 Diastolic blood pressure 82 mm[Hg] Cheyanne Gallardo Other [employer] Other 08-16-2023 10:45-0400 Systolic blood pressure 152 mm[Hg] Cheyanne Gallardo Other [employer] Other 04-27-2023 10:45-0400 Body height 152.4 cm Cheyanne Gallardo Other [employer] Other 04-27-2023 10:45-0400 Body mass index (BMI) [Ratio] 34.76 kg/m2 Cheyanne Gallardo Other [facility] [employer] Other 04-27-2023 10:45-0400 Body weight 80.74 kg Cheyanne Gallardo Other [facility] [employer] Other 04-27-2023 10:45-0400 Diastolic blood pressure 80 mm[Hg] Cheyanne Gallardo Other [facility] [employer] Other 04-27-2023 10:45-0400 Systolic blood pressure 154 mm[Hg] Cheyanne Gallardo Other [facility] [employer] Other 03-28-2023 11:17-0400 Heart rate 98 /min MD Cheyanne Gallardo Work Phone: [facility] 03-28-2023 11:17-0400 Respiratory rate 20 /min MD Cheyanne Gallardo Work Phone: [facility] 03-28-2023 11:17-0400 SaO2% (BldA) [Mass fraction] 97 % MD Cheyanne Gallardo Work Phone: [facility] 03-28-2023 11:10-0400 Diastolic blood pressure 60 mm[Hg] MD Cheyanne Gallardo Work Phone: [facility] 03-28-2023 11:10-0400 Systolic blood pressure 159 mm[Hg] MD Cheyanne Gallardo Work Phone: [facility] 03-28-2023 09:56-0400 Body height 154.94 cm MD Cheyanne Gallardo Work Phone: [facility] 03-28-2023 09:56-0400 Body temperature 97 [degF] MD Cheyanne Gallardo Work Phone: [facility] 03-28-2023 09:56-0400 Body weight 81.6 kg MD Cheyanne Gallardo Work Phone: [facility] 10-26-2022 15:00-0500 Body height 154.94 cm Amanda Blades Other [employer] Other 10-26-2022 15:00-0500 Body mass index (BMI) [Ratio] 33.44 kg/m2 Amanda Blades Other [employer] Other 10-26-2022 15:00-0500 Body weight 80.29 kg Amanda Blades Other [employer] [facility] [employer] Other 10-10-2022 10:17-0500 Body height 154.94 cm MD Lindy Rodriguez Work Phone: [facility] 10-10-2022 10:17-0500 Body weight 79.7 kg MD Lindy Rodriguez Work Phone: [facility] 10-10-2022 10:13-0500 Body temperature 98.5 [degF] MD Lindy Rodriguez Work Phone: [facility] 10-10-2022 10:13-0500 Diastolic blood pressure 98 mm[Hg] MD Lindy Rodriguez Work Phone: [facility] 10-10-2022 10:13-0500 Heart rate 73 /min MD Lindy Rodriguez Work Phone: [facility] 10-10-2022 10:13-0500 Respiratory rate 20 /min MD Lindy Rodriguez Work Phone: [facility] 10-10-2022 10:13-0500 SaO2% (BldA) [Mass fraction] 93 % MD Lindy Rodriguez Work Phone: [facility] 10-10-2022 10:13-0500 Systolic blood pressure 152 mm[Hg] MD Lindy Rodriguez Work Phone: [facility] Encounters Encounter Date Encounter Type Care Provider Facility Start: 08-08-2024 End: 08-08-2024 [facility] Work Phone: Start: 08-08-2024 End: 08-08-2024 Patient encounter procedure [facility] Work Phone: Start: 03-23-2024 End: 03-23-2024 ambulatory ROSITA CASTILLO [facility] Start: 03-04-2024 End: 03-04-2024 ambulatory DAIANA Benz VERONICA [facility] Start: 03-03-2024 End: 03-04-2024 ambulatory CORRINE KOROMA [facility] Start: 02-17-2024 End: 02-17-2024 ambulatory ROSITA Benz [facility] Start: 02-17-2024 End: 02-17-2024 Office outpatient visit 15 minutes Rosita S Ninunu PA Work Phone: [facility] Comment on above: Cervical spondylosis without myelopathy (Primary Dx) Start: 09-08-2023 End: 09-08-2023 ambulatory Thomas Calles Other [employer] Other Start: 09-08-2023 Telephone encounter Thomas Pereyra [facility] Start: 08-30-2023 End: 08-30-2023 ambulatory Cheyanne Gallardo Other [employer] Other Start: 08-30-2023 Telephone encounter Cheyanne Gallardo [facility] Start: 08-23-2023 End: 08-23-2023 ambulatory Cheyanne Gallardo Other [employer] Other Start: 08-23-2023 Telephone encounter Cheyanne Gallardo [facility] Start: 08-17-2023 End: 08-17-2023 ambulatory Cheyanne Gallardo Other [employer] Other Start: 08-17-2023 Telephone encounter Cheyanne Gallardo [facility] Start: 08-16-2023 End: 08-16-2023 ambulatory Cheyanne Gallardo Other [employer] Other Start: 08-16-2023 Office outpatient vi sit 25 minutes Cheyanne Gallardo [facility] Start: 05-14-2023 End: 05-14-2023 ambulatory Cheyanne Gallardo Other [employer] Other Start: 05-14-2023 Telephone encounter Cheyanne Gallardo [facility] Start: 04-27-2023 End: 04-27-2023 ambulatory Cheyanne Gallardo Other [employer] Other Start: 04-27-2023 Office outpatient vi sit 15 minutes Cheyanne Gallardo [facility] Start: 03-28-2023 End: 03-28-2023 Emergency department patient visit Shawn Hardy Rabia Facility:[facility] Start: 03-28-2023 End: 03-28-2023 Emergency department patient visit MD Cheyanne Gallardo Work Phone: [facility] Work Phone: Start: 01-11-2023 End: 01-11-2023 ambulatory KACI PATIÑO . Facility:[facility] Start: 10-26-2022 End: 10-26-2022 ambulatory Amanda Srinivasan Other [employer] Other Start: 10-26-2022 Office outpatient ne w 45 minutes Amanda Blades [facility] Start: 10-16-2022 End: 10-17-[address] CHEYANNE GALLARDO Facility:[facility] Start: 10-10-2022 End: 10-10-2022 Emergency department patient visit Lindy Rodriguez Facility:[facility] Start: 10-10-2022 End: 10-10-2022 Emergency department patient visit MD Lindy Rodriguez Work Phone: [facility] Start: 10-01-2022 End: 10-01-[address] CRISTIANE SIMPSON Facility:[facility] Start: 09-15-2022 End: 09-15-[address] CHEYANNE GALLARDO Facility:[facility] Start: 09-15-[address] CHEYANNE GALLARDO Facil ity:[facility] Start: 09-09-2022 End: 09-10-[address] CHEYANNE GALLARDO Facility:[facility] Start: 05-08-2022 End: 05-09-[address] CHEYANNE GALLARDO Facility:[facility] Start: 04-09-[address] CHEYANNE GALLAROD Facil ity:[facility] Start: 07-12-2021 End: 07-14-[address] MAUREEN MORTENSEN Facility:[facility] Procedures Date Procedure Procedure Detail Performing Clinician Start: 03-28-2023 Respiratory Panel (PCR) MD Cheyanne Gallardo Work Phone: Start: 03-28-2023 Plain chest X-ray MD Tigist Gallardo Work Phone: Start: 10-10-2022 CT cervical spine wi thout contrast MD Lindy Rodriguez Work Phone: Start: 10-13-2017 Screening mammography M astrid Gallardo Other Viral screening Cheyanne Gallardo Other Plan of Treatment Date Care Activity Detail Author Start: 02-16-2025 Adult BMI Screening Adult BMI Screen ing [facility] Start: 02-16-2025 Tobacco Screening Tobacco Screening [facility] Start: 07-16-2024 Influenza vaccination Influenza Vacc ine [facility] Start: 03-23-2024 End: 03-23-2024 Patient encounter procedure 03/23/2024 8:45 AM EDT Office Visit [facility] [address] [place] [phone] Rosita Castillo PA [address] [place], [place] [address] [facility] Start: 03-03-2024 End: 03-03-2024 Admission to same day surgery center 03/03/2024 12:39 PM EDT - 03/03/2024 12:45 PM EDT Surgery [facility] [address] [place] [id number] Corrine Koroma MD [address] [place], [place] [id number] INJECTION BLOCK NERVE MEDIAL BRANCH: bilat C23 34 [78289 (CPT )] [facility] Comment on above: INJECTION BLOCK NERV E MEDIAL BRANCH: bilat C23 34 [07145 (CPT )] Start: 03-03-2024 End: 03-03-2024 Njx dx/ther agt pvrt facet jt crv/thrc 1 level INJECTION BLOCK NERVE MEDIAL BRANCH Cervical spondylosis without myelopathy 03/03/2024 12:39 PM EDT [facility] Start: 03-03-2024 Subsequent hospital visit by physician 03/03/2024 12:39 PM EDT Hospital Encounter [facility] [address] [place] [phone] Corrine Koroma MD [address] [place], [place] [id number] [facility] Start: 07-16-2023 COVID-19 Vaccine ( season) COVID-19 Vaccine ( season) [facility] Start: 2009 Fall Risk Screening Fall Risk Screen ing [facility] Start: 1994 Administration of varicella zoster vaccine Zoster (Shingles) Vaccine (1 of 2) [facility] Start: 1963 DTaP,Tdap and Td Vac cines (1 - Tdap) DTaP,Tdap and Td Vaccines (1 - Tdap) [facility] Start: 1962 Adult BMI Follow Up Plan Adult BMI Follow Up Plan [facility] Start: 1956 Depression Screening Depression Scre ening [facility] Start: 1945 Medicare Annual Well ness Visit Medicare Annual Wellness Visit [facility] Start: 1945 Tobacco Counseling Tobacco Counselin selwyn [facility] Comprehensive metabo lic 2000 panel - Serum or Plasma [facility] Patient Education [facility] Work Phone: Patient referral [facility] Work Phone: [facility] Immunizations Immunization Date Immunization Notes Care Provider Tamir ribeiro 08-03-2023 influenza virus vaccine, unspecified formulation [facility] 08-03-2023 influenza, high dose seasonal, preservative-free Cheyanne Gallardo Other [employer] [facility] [employer] Other 08-05-2022 influenza virus vaccine, split virus (incl. purified surface antigen) Cheyanne Gallardo Other [employer] [facility] [employer] Other 08-05-2022 influenza virus vaccine, unspecified formulation Rosita CLEMONS Work Phone: [facility] 08-13-2021 influenza virus vaccine, split virus (incl. purified surface antigen) Cheyanne Gallardo Other [employer] [facility] [employer] Other 08-13-2021 influenza virus vaccine, unspecified formulation [facility] 07-31-2020 influenza virus vaccine, split virus (incl. purified surface antigen) Cheyanne Gallardo Other [employer] Other 07-31-2020 influenza virus vaccine, unspecified formulation [facility] 09-05-2018 influenza virus vaccine, split virus (incl. purified surface antigen) Cheyanne Gallardo Other [employer] Other 09-05-2018 influenza virus vaccine, unspecified formulation [facility] Payers Date Payer Category Payer Medicare MEDICARE MEDICAR E PART A & B [id number] 2009-Present [phone] [address] [place] [address] [id number] 2009 Unknown ANTHEM BCBS OUT OF STATE TRADITIONAL [id number] 2009-Present [phone] [address] [place] [address] [id number] 1959 Medicare [id number] 1959 Self-pay 1959 Unknown [id number] 1959 Unknown [id number] 1959 Unknown [id number] [id number] 1944 Unknown [id number] 2.16.840.1.142013.3.579.2.5 93 1944 Unknown [id number] 2.16.840.1.897170.3.579.2.5 93 1944 Unknown [id number] 2.840.1.799053.3.579.2.5 93 1944 Unknown [id number] 2.16.840.1.783085.3.579.2.5 93 1944 Unknown [id number] 2.16.840.1.354829.3.579.2.5 93 1944 Unknown [id number] 2.16.840.1.515517.3.579.2.5 93 1944 Unknown [id number] 2.16840.1.906053.3.579.2.5 93 1944 Unknown [id number] 2.16.840.1.855976.3.579.2.5 93 1944 Unknown [id number] 2.16.840.1.339594.3.579.2.5 93 1944 Unknown [id number] 2.16.840.1.118107.3.579.2.1 286 1944 Unknown [id number] 2.16.840.1.560999.3.579.2.1 286 1944 Unknown [id number] 2.16.840.1.661897.3.579.2.1 286 1944 Unknown [id number] 2.16.840.1.198727.3.579.2.1 286 1944 Unknown [id number] 2.16.840.1.197007.3.579.2.1 286 1944 Unknown [id number] 2.16.840.1.928215.3.579.2.1 286 Medicare Cigna Medicare Supplemental [id number] Unknown [id number] Unknown [id number] 2.16.840.1.153481.3.579.2.5 31 Unknown [id number] 2..840.1.935406.3.579.2.5 31 Unknown [id number] Social History Date Type Detail Facility Start: 10-10-2022 Tobacco smoking stat [facility] Ex-smoker (finding) [facility] Start: 1945 Sex Assigned At Female [facility] Start: 12-26-2020 End: 02-17-2024 Sex Assigned At [facility] [employer] Other Start: 03-28-2023 [facility] Start: 02-17-2024 Tobacco smoking stat [facility] Smokes tobacco daily [facility] History of tobacco use Cigarette Smoker P [address] [facility] Start: 12-26-2020 End: 02-17-2024 Cigarettes smoked current (pack per day) - [facility] Start: 02-17-2024 Tobacco use and exposure Smokeless tobacco non-user [facility] Start: 02-17-2024 Alcohol intake Lifetime non-d antonio (finding) [facility] Childcare Unknown [facility] Start: 1945 [facility] 05-08-2022 to 02-17-2024 KACI Becerra - 02/17/2024 10:45 AM EDTPatient Instructions Note Date & Type Note Facility 02-17-2024 History of Presen t illness Narrative [facility] [address] [place] [address] Patient: Nya Jiang Sex: female : 1945 Age: 78 y.o. PCP: CHEYANNE GALLARDO MD 02/17/2024 Nya Jiang is here for a(n) follow up for neck pain. Patient states she has been taking one Tylenol every other night for pain which provided no relief. Chief Complaint Patient presents with Neck Pain HPI: 03/12/2023 Bilateral C2/3, 3/4 Medial branch block with 80-90% relief for 7-8 months pre-proc pain was 9/10 post proc pain was 1-2/10 Neck Pain This is a chronic problem. The current episode started more than 1 year ago (08/2022). The problem occurs constantly (constant pain that fluctuates). The problem has been unchanged. The pain is associated with nothing. The pain is present in the midline, left side, right side and occipital region (left side of head >right). The quality of the pain is described as aching. The pain is at a severity of 10/10. The pain is severe. The symptoms are aggravated by bending and position (sleeping in bed position is worse, ROM increases pain). The pain is Same all the time. Stiffness is present All day (motion causes severe pain). Associated symptoms include headaches. Pertinent negatives include no chest pain, fever, numbness, pain with swallowing, photophobia, tingling, visual change or weakness. Treatments tried: rest, ice/heat, neck surg 2011, meds: mdp, motrin, tramadol, norco, tizadine, robaxin, aspcreme and biofreeze with some relief. PT at [facility] (Dec 2022), HEP from PT currently. The treatment provided mild relief. The effect of pain on patient's ADLS: Mild Impairment. Past Medical History: Diagnosis Date Chronic pain disorder GERD (gastroesophageal reflux disease) Hyperlipidemia Hypertension Joint pain Past Surgical History: Procedure Laterality Date HERNIA REPAIR HYSTERECTOMY INJECTION BLOCK NERVE MEDIAL BRANCH: bilat C 12/18 01/16 Bilateral 03/12/2023 Performed by Corrine Koroma MD at [facility] NECK SURGERY 2012 Allergies Allergen Reactions Nylon Rash Penicillins Rash Family History Problem Relation Age of Onset Cancer Mother COPD Father Cancer Father Social History Socioeconomic History Marital status: Spouse name: Not on file Number of children: Not on file Years of education: Not on file Highest education level: Not on file Occupational History Not on file Tobacco Use Smoking status: Every Day Packs/day: .5 Types: Cigarettes Smokeless tobacco: Never Vaping Use Vaping Use: Never used Substance and Sexual Activity Alcohol use: Never Drug use: Never Sexual activity: Defer Other Topics Concern Not on file Social History Narrative Not on file Social Determinants of Health Financial Resource Strain: Not on file Food Insecurity: No Food Insecurity (02/17/2024) Hunger Screening Food Insecurity - Worry: Never True Food Insecurity - Inability: Never True Transportation Needs: Not on file Physical Activity: Not on file Stress: Not on file Social Connections: Not on file Interpersonal Safety: Not on file Housing Instability: Not on file Review of Systems Constitutional: Negative for fever. HENT: Negative. Eyes: Negative for photophobia. Cardiovascular: Negative for chest pain. Gastrointestinal: Positive for abdominal distention and constipation. Genitourinary: Negative for difficulty urinating, frequency and urgency. Musculoskeletal: Positive for neck pain. Skin: Negative. Neurological: Positive for headaches. Negative for tingling, weakness and numbness. Psychiatric/Behavioral: Negative. Vital Signs: BP 180/82 Pulse 93 Resp 16 Ht 154.9 cm (5' 1 ) Wt 82.1 kg (181 lb) SpO2 93% BMI 34.20 kg/m Physical Exam: GENERAL - Healthy patient that appears stated age. HEENT - Normocephalic / Atraumatic, Extraoccular movements intact, trachea midline, thyroid within normal limits. CV - pulse regular, Warm extremities with appropriate color of nailbeds. RESP - No obvious wheezing, No Shortness of Breath, No overexertion response to exam maneuvers. COORDINATION - remains intact. PSYCH - Alert and Oriented x4, Attentive and appropriate, constitutionally normal, displays normal mood and affect per situation, answered questions appropriately during examination, demonstrated appropriate attention during discussion, demonstrated appropriate cognitive reasoning and understanding of the medical condition by asking appropriate questions regarding the diagnosis and risks/benefits/alternatives of treatment modalities. No obvious deficits in memory, reasoning, or intellect. Cervical: SKIN - No rashes or bruising in the area of the patient s pain. LYMPH NODES - demonstrate no obvious enlargement. EXTREMITIES - Upper extremities are warm, with minimal edema and palpable pulses. Tenderness to palpation noted in the cervical spine and paraspinal musculature. Pain is elicited with flexion, extension, and lateral rotation of the cervical spine. Range of motion is diminished with these motions due to pain. Facet palpation is noted to be painful and concordant with the patient s normal pain complaints. STRENGTH - noted to be 5 out of 5 all muscle groups bilateral upper extremities including muscles involving shoulder flexion and abduction, elbow flexion and extension, as well as wrist flexion and extension and intrinsic muscles of the hand. No notable atrophy, fasciculations or spasm. SENSORY - No notable sensory deficits in the bilateral upper extremities to touch or pinprick in all dermatomal distributions. Spurlings sign is negative. Assessment/Treatment Plan: Nya was seen today for neck pain. Diagnoses and all orders for this visit: Cervical spondylosis without myelopathy - Case request operating room: INJECTION BLOCK NERVE MEDIAL BRANCH: bilat C23 34 Bilateral C2/3, 3/4 Facet Injection/Medial Branch Block - under fluoroscopy It is hopeful that the described procedure will provide symptomatic pain relief. It is felt to be medically necessary noting that the patient has tried and failed more conservative modalities of therapy and this is the next most appropriate step. The procedure was described in detail to the patient as well as the potential benefits of pain reduction alongside risks of the procedure and alternatives. Risks were described as including, but not limited to bleeding, infection, nerve damage, spinal cord injury, paralysis, stroke, dural puncture headache, and medication reaction. The patient expressed understanding regarding the risks and benefits and wishes to proceed. Diagnostic facet injections and medial branch blocks should provide information to confirm that the noted facet arthropathy is the patient s most significant pain generator. If this provides significant but only temporary pain relief, the patient may in the future be a candidate for radiofrequency denervation of the facet joints to provide pain relief for approximately 1 year. Follow up 2 weeks after procedure The medications prescribed have been reviewed for medication interactions/contraindications and/or for upcoming procedures: continue current medication regimen without any changes. DISCUSSION: Treatment options discussed with patient and all questions answered to patient's satisfaction. Discussed the rules and regulations surrounding prescription of opioids and compliance at length. Failure to follow the rules and regulation will result in tapering and discontinuation of medications if applicable. Prescribed medication that requires intensive monitoring for toxicity We do not currently prescribe any controlled substance from this practice. Treatment plans discussed but not opted for at this time: Cervical RFA. Patient would like to proceed with the current outlined treatment plan before moving forward with any other options. It is noted that the patient did have good response from the previously performed procedure. It is felt that the patient would benefit from an additional procedure of the same nature in that the same symptoms have returned. It is hopeful that this additional injection will provide additional benefit and duration when combined with the previous injection. The spine model was demonstrated and MRI was reviewed and used to explain the condition. Comorbidity- Obesity The patient does have a comorbid condition of obesity. This will be taken into account in that obesity will contribute to certain pain conditions. It can contribute to pain from degenerative disc disease as well as osteoarthritis of the joints. Many neuropathic symptoms are also amplified due to axial spine loading. Special benefits will also need to be given to procedures. Many procedures are technically more difficult in the light of severe obesity. I will also consider the possibility of undiagnosed obstructive sleep apnea (which often accompanies obesity) when prescribing any narcotic medications. I will weigh the risks and benefits and fully discuss them with the patient for these reasons. OARRS: Reviewed. Scribe Statement: Scribed for and in the presence of KACI BECERRA by Soila Callahan CNA. Provider Statement: I, KACI BECERRA, personally performed the services described in the documentation, as scribed by Soila Callahan CNA in my presence, and it is both accurate and complete. Soila Callahan CNA 02/17/24 1121 KACI Becerra 02/17/24 1327 documented in this encounter [facility] 02-17-2024 Instructions Soila Callahan CNA - 02/17/2024 10:45 AM EDT Facet Injection / Medial Branch Block (MBB) / Sacroiliac (SI) Joint Injection A facet injection and sacroiliac joint injection are injections of local anesthetic and steroid into a joint in the spine. A medial branch block is similar, but the medication is placed outside the joint space near the nerve that supplies the joint called the medial branch (steroid may or may not be used). You may require multiple injections depending upon how many joints are involved. How Long Will This Procedure Last? The extent and duration of pain relief may depend on the amount of inflammation and how many areas are involved. Other coexisting factors may be responsible for your pain. If your pain goes away for a short time, but then returns, you may be a candidate for radiofrequency ablation (RFA). Activity Be active. Attempt activities and movements that typically cause pain to see if it feels better while doing them. We will give you a pain diary. Please fill this out as directed by your nurse in pre-op. This will help your doctor determine the effectiveness of the injection, and how to proceed. Bring the pain diary with you to your follow-up appointment. Medications You should not take your pain medications for 4-6 hours before or after the injection in order to properly diagnose if the injection provides adequate relief. Resume your routine medications after your procedure. You may resume blood thinners per your regular schedule after the procedure. If you received sedation: If you received sedation for your procedure, you may feel sleepy or not yourself for several hours today. For the next 24 hours avoid activities that requires alertness or coordination. This includes: Driving or operating heavy machinery Using power tools Consuming alcohol Do not make important or complex decisions or sign legal documents in the next 24 hours. Other Instructions: If you feel severe pain at the injection site with swelling and redness, increased leg weakness, a fever of 101 or higher, headache (or worsening headache), changes in vision or urinary retention: Please call the office at , or have someone take you to the nearest emergency room. Tell the emergency room staff that you recently had a spine injection. A doctor must evaluate you for bleeding and injection complications. If you lose control over bowel, bladder, or legs: Go to the nearest emergency room. documented in this encounter [facility] 08-30-2023 Evaluation note Encounter Date Diagnosis Assessment Notes Aug, Epigastric pain (ICD-10 - R10.13) Aug, Bloating (ICD-10 - R14.0) Aug, Nausea (ICD-10 - R11.0) [facility] Other 10-09-2023 Evaluation note* Encounter Date Diagnosis Assessment Notes Treatment Notes Treatment Clinical Notes Aug, Epigastric pain (ICD-10 - R10.13) Aug, Right upper quadrant abdominal pain (ICD-10 - R10.11) [facility] Other 10-03-2023 Evaluation note* Encounter Date Diagnosis Assessment Notes Treatment Notes Treatment Clinical Notes Aug, Abnormal urinalysis (ICD-10 - R82.90) [facility] Other 10-02-2023 Evaluation note* Encounter Date Diagnosis Assessment Notes Treatment Notes Treatment Clinical Notes Aug, Iron deficiency (ICD-10 - E61.1) Will recheck with labs. Didn't feel well on po ferrous sulfate. consider IV iron if levels remain low. Aug, Right upper quadrant abdominal pain (ICD-10 - R10.11) assess with labs initially. Discussed obtaining a CT based on the lab results. Aug, Dysuria (ICD-10 - R30.0) Assess for possible UTI [facility] Other 06-13-2023 Evaluation note* Encounter Date Diagnosis Assessment Notes Treatment Notes Treatment Clinical Notes Apr, Chronic fatigue (ICD-10 - R53.82) Pt agrees to labs to f/o metabolic causes. Discussed stress relief, family support and help with husbands medical problems. [facility] Other 12-12-2022 Evaluation note* Encounter Date Diagnosis Assessment Notes Treatment Notes Treatment Clinical Notes Oct, Neck pain (ICD-10 - M54.2) [facility] Other 10-27-2022 NotePROCEDURE: XR TOES LT MIN 2 V HISTORY: Pain of toe of left foot ; fourth toe pain; no known injury COMPARISON: None. FINDINGS: BONES:No fracture, acute abnormality, or significant arthropathy. SOFT TISSUES:5 mm rounded calcification within the soft tissues dorsal to the distal interphalangeal joint of the fourth toe. EFFUSION:None visible. OTHER: Negative. IMPRESSION: 1. Nonspecific 5 mm calcification within soft tissues dorsal to the fourth distal interphalangeal joint of uncertain etiology; sequela of remote injury versus prior infection. 2. No acute bone abnormality or significant degenerative joint disease of fourth toe. Electronically authenticated by: RAMYA IQBAL Date: 2022-09-10 06:16[facility]06-24-2022 NotePROCEDURE: XR WRIST LT MIN 3 V HISTORY: Pain of left wrist ; acute pain and swelling, no known injury COMPARISON: None. FINDINGS: BONES:Marked degenerative changes of the first carpal-metacarpal joint. Mild degenerative changes of the trapezium-scaphoid joint. Multifocal small subchondral cysts. Tiny ossification adjacent tip of ulnar styloid process favoring sequela of remote injury. SOFT TISSUES:No visible soft tissue swelling. EFFUSION:None visible. OTHER: Negative. IMPRESSION: 1. No appreciable acute bone abnormality. 2. Degenerative changes, predominantly at base of thumb, favoring osteoarthritis. Electronically authenticated by: RAMYA IQBAL Date: 2022-05-08 13:14[facility] assessment information [facility] Work Phone: Evaluation noteNo InformationN[facility]Brad[facility] [employer] Other Evaluation note* Diagnosis Cervical spondylosis without myelopathy- Primary Cervical spondylosis without myelopathy- Primary Cervical spondylosis without myelopathy [facility] Diagnosis Onset Date Resolution Status Anemia acute Essential (primary) hypertension acute Fatigue acute [facility] Work Phone: History general Narrative - Reported* Type Description Date Medical History DEPRESSION Medical History HTN Medical History HYPERLIPEMIA Medical History COPD Surgical History BREAST REDUCTION Surgical History HERNIA REPAIR X2 Surgical History HYSTERECTOMY Surgical History NECK SURGERY [facility] [employer] Other History general Narrative - Reported* Type Description Date Medical History DEPRESSION Medical History HTN Medical History HYPERLIPEMIA Medical History COPD Medical History Frontal headache Medical History Cervical pain Medical History Fatigue Medical History Memory change Medical History Abnormal brain MRI Medical History Anemia Surgical History BREAST REDUCTION Surgical History HERNIA REPAIR X2 Surgical History HYSTERECTOMY Surgical History NECK SURGERY Hospitalization History SEE SURGICAL HX [facility] Other Hospital Discharge instructions Additional Instructions Follow-up with neurosurgeon and or primary care doctor.[facility] Work Phone: Hospital Discharge instructions Additional Instructions Follow-up with your primary care doctor Return to ED if develop worsening symptoms or [facility] Work Phone: Summary Purpose Family History Relationship Condition Age at Onset Recorded Date/T yi brother Unknown father Malignant neoplasm Unknown Unknown family member Unknown mother Unknown Malignant neoplasm of breast Unknown sister Unknown Advance Directives Advance Directive Response Recorded Date/ Time Advance Directives No September 9:54am Advance Directive Response Recorded Date/ Time Advance Directives No September 10:54am Chief Complaint and Reason for Visit Chief Complaint persisting neck pain /swelling/throbbing Chief Complaint CONGESTION, COUGH, L OW OXYGEN SENT BY URGENT CARE Chief Complaint not feeling well, fe eling run down Reason for Visit Anemia Essential (primary) hypertension Fatigue Reason for Referral Specialty Diagnoses / Procedures Referred By Florentin bright Referred To Contact Diagnoses Cervical spondylosis without myelopathy Procedures Case request operating room: INJECTION BLOCK NERVE MEDIAL BRANCH: bilat C23 34 Rosita Castillo, KACI [address], [address] [place] [address] Referral ID Status Reason Start Date Expiration Date V isits Requested Visits Authorized [id number] Pending Review 02/17/2024 02/16/2025 1 1 Reason *Waiting for appt Last OV, CT and lab results. Diagnosis 1 Epigastric pain (R10 .13) Referral Organization [facility] Referring Provider First Name Cheyanne Referring Provider Last Name Gallardo Referring Provider Specialty Family [facility] Referred Organization [facility] Gastroenterolo gy Referred Provider Loan Sebastian Referred Address [address],[address] Referred Provider Specialty Gastroentero logy Referral Priority Routine General Notes Cheryl Fontanez 03:03:56 PM >received today, attachments made, sent P2P Additional Source Comments INFORMATION SOURCE (unrecogn ized section and content) DATE CREATED AUTHOR 08/01/2021 [facility] DATE CREATED AUTHOR AUTHOR'S ORGANIZ ATION 03/24/2023 [facility] DATE CREATED AUTHOR AUTHOR'S ORGANIZ ATION 03/29/[address] [facility] DATE CREATED AUTHOR AUTHOR'S ORGANIZ ATION 03/25/2024 [facility] Care Teams (unrecognized sec tion and content) Team Status: Inactive Member Role Status Dates Lindy Rodriguez MD Primary Care Provider Active Marek Rolle APRN Emergency Provider Active Team Status: Active Member Role Status Dates Lindy Rodriguez MD Primary Care Provider Active Team Status: Active Member Role Status Dates Cheyanne Gallardo MD Primary Care Provider Active Team Status: Inactive Member Role Status Dates Cheyanne Gallardo MD Primary Care Provider Active Shawn Camarillo DO Emergency Provider Active Lap Cutter Relationship Specialty Start Date End Date Cheyanne Gallardo MD [address] [place] [address] PCP - General Family Medicine 10/25/19 Team Status: Inactive Member Role Status Dates Cheyanne Gallardo MD Primary Care Provide r, Attending Provider Active Start: August 08, 2024 End: August 08, 2024 Goals (unrecognized section and content) Goals may be documented in a n alternate sectionNo InformationGoals may be documented in an alternate sectionNo InformationNo InformationNo InformationNo InformationNo InformationNo InformationNo InformationNot on filedocumented as of this encounterGoals may be documented in an alternate section REASON FOR VISIT (unrecogniz ed section and content) Reason Comments Neck Pain FOR RECORDS PERTAINING TO PATIENTS WHO ARE OR HAVE BEEN ENROLLED IN A CHEMICAL DEPENDENCY/SUBSTANCEABUSE PROGRAM, SOME INFORMATION MAY BE OMITTED. This clinical summary was aggregated from multiple sources. Caution should be exercised in using it in the provision of clinical care. This summary normalizes information from multiple sources, and as a consequence, information in this document may materially change the coding, format and clinical context of patient data. In addition, data may be omitted in some cases. CLINICAL DECISIONS SHOULD BE BASED ON THE PRIMARY CLINICAL RECORDS. [facility]. provides no warranty or guarantee of the accuracy or completeness of information in this document.
[2024-08-09 13:51] LABS: Basophils Absolute Auto 0.1 10^3/uL (0.0-0.1); Basophils Percent Auto 0.7 % (0.2-2.0); Eosinophils Absolute Auto 0.3 10^3/uL (0.0-0.7); Eosinophils Percent Auto 3.2 % (0.9-7.0); Hematocrit 45.1 % (36.0-48.0); Hemoglobin 15.2 g/dL (12.0-16.0); Immature Granulocytes Abs Auto 0.02 10^3/uL (0.00-0.03); Immature Granulocytes Pct Auto 0.2 % (0.0-0.5); Lymphocytes Absolute Auto 2.6 10^3/uL (1.2-3.8); Lymphocytes Percent Auto 26.9 % (20.5-60.0); Mean Corpuscular HGB Conc 33.7 g/dL (29.9-35.2); Mean Corpuscular Hemoglobin 28.5 pg (26.7-34.0); Mean Corpuscular Volume 84.6 fL (81.0-99.0); Mean Platelet Volume 8.4 fL (9.5-13.5); Monocytes Absolute Auto 0.8 10^3/uL (0.3-0.8); Monocytes Percent Auto 8.1 % (1.7-12.0); Neutrophils Absolute Auto 5.8 10^3/uL (1.4-6.5); Neutrophils Percent Auto 60.9 % (43.0-75.0); Platelet Count 307 10^3/uL (150-450); Red Blood Count 5.33 10^6/uL (4.20-5.40); Red Cell Distribution Width 12.2 % (11.0-15.0); White Blood Count 9.6 10^3/uL (4.0-11.0)
[2024-08-09 14:56] LABS: Alanine Aminotransferase 17 U/L (14-59); Albumin Globulin Ratio 0.9; Albumin Level 3.5 g/dL (3.4-5.0); Alkaline Phosphatase 100 U/L (46-116); Anion Gap 6.1; Aspartate Amino Transferase 14 U/L (15-37); BUN Creatinine Ratio 17.3; Bilirubin Total 0.5 mg/dL (0.2-1.0); Calcium 9.6 mg/dL (8.5-10.1); Carbon Dioxide 35.8 mmol/L (21.0-32.0); Chloride 100 mmol/L (98-107); Estimated GFR (African America >60 (>=60); Estimated GFR (Non-African Ame >60 (>=60); Globulin 3.7 g/dL; Glucose 156 mg/dL (74-106); Potassium 3.9 mmol/L (3.5-5.1); Sodium 138 mmol/L (136-145); Thyroid Stimulating Hormone 2.316 uIU/mL (0.358-3.740); Total Protein 7.2 g/dL (6.4-8.2)
== END 2024-08-09 13:36 | disposition home or self-care (01) ==
LOC: LAB 13:38
PROVIDERS: PCP Family Medicine; Visit Provider Family Medicine
DX: R53.83 Other fatigue (principal); I10 Essential (primary) hypertension; D64.9 Anemia, unspecified
CPT/HCPCS: 36415; 80053; 82728; 84443; 85025

== ENCOUNTER 2025-01-19 13:27 | Emergency (ER) | payer MEDICARE, BC, SELFPAY ==
[2025-01-19 13:34] VITALS: PULSE 88; TEMP 36.8; O2SAT 96; BMI 33.6
--- NOTE | 2025-01-19 13:37 | ED_ITS ---
HPI HPI - General Adult General Chief complaint: Abdominal Pain Stated complaint: LOWER EXTERMITY PAIN Time Seen by Provider: 01/19/25 13:37 History of Present Illness HPI narrative: Patient presents with chief complaint of crampy lower abdominal pain since bobby ng. Some food goes through to her back. She denies nausea or vomiting, chills or fever. Related Data Home Medications ?Medication ?Instructions ?Recorded ?Confirmed atorvastatin 80 mg tablet 80 mg PO DAILY 01/19/25 01/19/25 losartan 100 mg tablet 100 mg PO DAILY 01/19/25 01/19/25 Allergies Allergy/AdvReac Type Severity Reaction Status Date / Time nylon Allergy Unknown Hives Verified 01/19/25 13:33 Penicillins Allergy Unknown Hives Verified 01/19/25 13:33 Opioid HPI Opioid Management Most Recent Opioid Data: Last Pain Scale 8 01/13/24 08:41 01/13/24 Last ED Pain Assessment 01/19/25 14:37 PFSH PFSH Social History Smoking status: Current every day smoker Little interest or pleasure in doing things: not at all Feeling down, depressed, or hopeless: not at all Exam Constitutional Vital Signs, click to edit/add: Last Vital Signs Temp 98.2 F 01/19/25 13:34 Pulse 88 01/19/25 13:34 Resp 20 01/19/25 13:34 BP 178/80 H 01/19/25 13:55 Pulse Ox 96 01/19/25 13:34 O2 Del Method Room Air 01/19/25 13:34 Course Vital Signs Vital signs: Vital Signs Temperature 98.2 F 01/19/25 13:34 Pulse Rate 88 01/19/25 13:34 Respiratory Rate 20 01/19/25 13:34 Pulse Oximetry 96 01/19/25 13:34 Oxygen Delivery Method Room Air 01/19/25 13:34 Temperature 98.2 F 01/19/25 13:34 Pulse Rate 88 01/19/25 13:34 Respiratory Rate 20 01/19/25 13:34 Blood Pressure 178/80 H 01/19/25 13:55 Pulse Oximetry 96 01/19/25 13:34 Oxygen Delivery Method Room Air 01/19/25 13:34 Medical Decision Making MDM Narrative Medical decision making narrative: Patient presents with crampy lower abdominal pain. Her workup does not reveal any acute intra-abdominal pathology. I do see a large bolus of stool in the rectum. She has had a large bowel movement after fleets enema and feels much better. Lactate and lipase were normal. She is advised to take MiraLAX for this and is to seek follow-up with PCP after the weekend with instructions to return anytime for worsening symptoms. Differential Diagnosis Differential Diagnosis: Bowel obstruction, colitis, diverticulitis. Lab Data Labs: Lab Results 01/19/25 Range/Units 13:50 WBC 10.0 (4.0-11.0) 10^3/uL RBC 5.32 (4.20-5.40) 10^6/uL Hgb 15.4 (12.0-16.0) g/dL Hct 45.0 (36.0-48.0) % MCV 84.6 (81.0-99.0) fL MCH 28.9 (26.7-34.0) pg MCHC 34.2 (29.9-35.2) g/dL RDW 12.3 (11.0-15.0) % Plt Count 318 (150-450) 10^3/uL MPV 8.3 L (9.5-13.5) fL Neut % (Auto) 65.4 (43.0-75.0) % Lymph % (Auto) 22.5 (20.5-60.0) % [place] % (Auto) 9.0 (1.7-12.0) % Eos % (Auto) 2.4 (0.9-7.0) % Baso % (Auto) 0.4 (0.2-2.0) % Neut # (Auto) 6.6 H (1.4-6.5) 10^3/uL Lymph # (Auto) 2.3 (1.2-3.8) 10^3/uL [place] # (Auto) 0.9 H (0.3-0.8) 10^3/uL Eos # (Auto) 0.2 (0.0-0.7) 10^3/uL Baso # (Auto) 0.0 (0.0-0.1) 10^3/uL Abs Immat Gran (auto) 0.03 (0.00-0.03) 10^3/uL Imm/Tot Granulo (auto) 0.3 (0.0-0.5) % Sodium 140 (136-145) mmol/L Potassium 4.2 (3.5-5.1) mmol/L Chloride 103 (98-107) mmol/L Carbon Dioxide 33.8 H (21.0-32.0) mmol/L Anion Gap 7.4 BUN 12.0 (7.0-18.0) mg/dL Creatinine 0.78 (0.55-1.02) mg/dL Est GFR ( Amer) >60 (>=60 mL/min/1.73m^2) Est GFR (Non-Af Amer) >60 (>=60 mL/min/1.73m^2) BUN/Creatinine Ratio 15.4 Glucose 127 H (74-106) mg/dL Lactate 1.0 (0.4-2.0) mmol/L Calcium 9.0 (8.5-10.1) mg/dL Total Bilirubin 0.4 (0.2-1.0) mg/dL Direct Bilirubin 0.1 (0.0-0.2) mg/dL AST 17 (15-37) U/L ALT 17 (14-59) U/L Alkaline Phosphatase 116 (46-116) U/L Total Protein 7.2 (6.4-8.2) g/dL Albumin 3.4 (3.4-5.0) g/dL Globulin 3.8 g/dL Albumin/Globulin Ratio 0.9 Lipase 36.0 (16.0-77.0) U/L Discharge Plan Discharge Chief Complaint: Abdominal Pain Clinical Impression: Abdominal pain, Constipation Patient Disposition: Home, Self-Care Time of Disposition Decision: 05:00 Condition: Good Mode of Transportation: Private Vehicle Prescriptions / Home Meds: No Action atorvastatin 80 mg tablet 80 mg PO DAILY losartan 100 mg tablet 100 mg PO DAILY Print Language: Sri [place]ank[place] Instructions: Constipation (ED), Abdominal Pain (ED) Additional Instructions: Take MiraLAX daily. Follow-up with your physician after the weekend. Return for worsening symptoms. Referrals: Cheyanne Hernandez MD [Primary Care Provider] - 1 week
[2025-01-19 13:55] VITALS: BP 178/80
[2025-01-19] MEDS: 0.9 % SODIUM CHLORIDE 1,000 ML 125 ML IV (14:05)
[2025-01-19] MEDS: ONDANSETRON PF 4 MG/2 ML VIAL IV (14:05)
[2025-01-19] MEDS: HYDROMORPHONE HCL 0.5 MG/0.5 ML SYRINGE IV (14:06)
[2025-01-19 14:07] LABS: Basophils Percent Auto 0.4 % (0.2-2.0); Eosinophils Absolute Auto 0.2 10^3/uL (0.0-0.7); Eosinophils Percent Auto 2.4 % (0.9-7.0); Hemoglobin 15.4 g/dL (12.0-16.0); Immature Granulocytes Abs Auto 0.03 10^3/uL (0.00-0.03); Immature Granulocytes Pct Auto 0.3 % (0.0-0.5); Lymphocytes Absolute Auto 2.3 10^3/uL (1.2-3.8); Lymphocytes Percent Auto 22.5 % (20.5-60.0); Mean Corpuscular HGB Conc 34.2 g/dL (29.9-35.2); Mean Corpuscular Hemoglobin 28.9 pg (26.7-34.0); Mean Corpuscular Volume 84.6 fL (81.0-99.0); Mean Platelet Volume 8.3 fL (9.5-13.5); Monocytes Absolute Auto 0.9 10^3/uL (0.3-0.8); Neutrophils Absolute Auto 6.6 10^3/uL (1.4-6.5); Neutrophils Percent Auto 65.4 % (43.0-75.0); Platelet Count 318 10^3/uL (150-450); Red Blood Count 5.32 10^6/uL (4.20-5.40); Red Cell Distribution Width 12.3 % (11.0-15.0)
--- OUTSIDE RECORDS SUMMARY | 2025-01-19 14:07 | XMS_ITS | CCD ---
Author Organization [facility] Care Team Providers Care Bacteriologist Pharmaceutical Name Role Phone BALBINA, DR REDDY Attending Unavailable BALBINA, DR REDDY Consulting Unavailable BALBINA, DR REDDY Admitting Unavailable ZIVICER, DR RAMYA Bernal Consulting Unavailable PAY, DR FAJARDO Consulting Unavailable MD Lindy Rodriguez Primary Care Provider MARICARMEN Rolle Emergency Provider Amanda Srinivasan Unavailable [...] Care Provider DO Shawn Camarillo Emergency Provider [phone] Shawn Camarillo Admitting Unavailable Shawn Camarillo Attending Unavailable Cheyanne Gallardo Primary Care Unavailable Michael Lindy Burns Primary Care Unavailable Marek Rolle Admitting Unavailable Marek Rolle Attending Unavailable Cheyanne Gallardo Unavailable Thomas Calles Unavailable ROSITA CASTILLO Attending Unavailable CHEYANNE GALLARDO Referring Unavailable CHEYANNE GALLARDO Primary Care Unavailable CORRINE KOROMA Admitting Unavailable CORRINE KOROMA Attending Unavailable CHEYANNE GALLARDO Referring Unavailable CHEYANNE GALLARDO Primary Care Unavailable CORRINE KOROMA Attending Unavailable CORRINE KOROMA Referring Unavailable CHEYANNE GALLARDO Primary Care Unavailable DAIANA MARTIN Attending Unavailable CHEYANNE GALLARDO Primary Care Unavailable ROSITA CASTILLO Attending Unavailable CHEYANNE GALLARDO Referring Unavailable CHEYANNE GALLARDO Primary Care Unavailable Cheyanne Gallardo MD Primary Care Provider [phone] Allergies Allergy Classification Reported Allergen(s) Allergy Type Date of Onset Reaction(s) Facility (3 sources) Ciprofloxacin Drug Allergy 07-12-20 21 [facility] Repository (8 sources) Penicillins; Translations: [PENICILLINS] Drug allergy (disorder) 03-25-20 21 Rash [facility] Repository (2 sources) Nylon 12 Drug allergy (disorder) [facility] Repository (16 sources) nylon; Translations: [nylon] Allergy to substance 10-10-20 22 Swelling, Rash [facility] (11 sources) Penicillin G Benzathine Drug allergy 08-08-20 24 Unknown, Unknown Reaction [facility] (1 source) Penicillins Drug allergy (disorder) 03-28-20 23 [facility] Repository (10 sources) cefdinir Drug Allergy 08-08-20 24 Unknown, Unknown Reaction [facility] (7 sources) venlafaxine Drug Allergy Unknown [facility] Other (8 sources) venlafaxine Drug Allergy 08-08-20 24 Unknown, Unknown Reaction [facility] (5 sources) Penicillin G Benzathine & Proc Drug allergy Unknown [facility] Other (5 sources) NYLON STITCHING Propensity to adverse reactions 10-13-20 17 Unknown [facility] Other (5 sources) Allergies Reconciled Propensity to adverse reactions Unknown [facility] Other (5 sources) patient allergy list reviewed by nurse or physicia Propensity to adverse reactions 10-13-20 Comment:Done [facility] Other (2 sources) Penicillins Propensity to adverse reactions to drug 03-25-20 21 Count includes the [facility] Medications Current Medications Medication Drug Class(es) Dates Sig (Normalized) Sig (Original) atorvastatin 80 mg oral tablet (16 sources) HMG-CoA Reductase Inhibitor Start: 11-29-2024 take 1 tablet by mouth once daily Atorvastatin 80 mg tablet Active 0 .ROUTE .COMPLEX November 29, 2024 10:09am TAKE 1 TABLET BY MOUTH EVERY DAY Start: 10-10-2022 End: 11-29-2024 take 1 tablet by mouth once daily Atorvastatin 80 mg tablet Discontinued 80 MG PO Daily October 10, 2022 12:00am November 29, 2024 10:09am Start: 10-10-2022 Atorvastatin A ctive MG TABLET October 10, 2022 12:00am Atorvastatin Senthil cium Active benzonatate 200 mg oral capsule (1 source) Non-narcotic Antitussive Start: 12-07-2024 Benzonatate 200 mg capsule Active 200 MG PO 2-3 TIMES PER DAY as needed for cough December 07, 2024 12:00am doxycycline hyclate 100 mg oral tablet (5 sources) Tetracycline-class Drug Start: 12-07-2024 take 1 tablet by mouth twice daily Doxycycline Hyclate 100 mg tablet Active 100 MG PO Twice daily December 07, 2024 12:00am Start: 03-28-2023 End: 01-17-2024 take 1 capsule by mouth twice daily Doxycycline Hyclate 100 mg capsule Discontinued 100 MG PO Twice daily 28 05March 27, 2023 11:00pm January 17, 2024 2:51pm escitalopram 10 mg oral tablet (4 sources) Serotonin Reuptake Inhibitor Start: 09-26-2024 End: 10-02-2024 take 1 tablet by mouth once daily Escitalopram Oxalate 10 mg tablet Active 0 .ROUTE .COMPLEX October 02, 2024 1:49pm TAKE 1 TABLET BY MOUTH DAILY Start: 08-17-2024 End: 09-26-2024 take 1 tablet by mouth once daily Escitalopram Oxalate (Lexapro) 10 mg tablet Discontinued 10 MG PO Daily August 17, 2024 2:10pm September 26, 2024 4:32pm losartan potassium 100 mg oral tablet (18 sources) Angiotensin 2 Receptor Rowdy Start: 01-21-2024 End: 11-29-2024 take 1 tablet by mouth once daily Losartan 100 mg tablet Active 0 .ROUTE .COMPLEX November 29, 2024 10:09am TAKE 1 TABLET BY MOUTH EVERY DAY Start: 10-10-2022 End: 01-21-2024 take 1 tablet by mouth once daily Losartan 100 mg tablet Discontinued 100 MG PO Daily October 10, 2022 12:00am January 21, 2024 4:59pm Start: 10-10-2022 Losartan Activ e MG TABLET October 10, 2022 12:00am take 2 tablets by mo uth in the morning losartan (COZAAR) 50 mg tablet Take 2 tablets (100 mg total) by mouth in the morning. Active Losartan Potassium-HCTZ (1 source) Losartan Potassium-HCTZ [...] / HYDROcodone bitartrate 5 mg oral tablet (13 sources) Opioid Agonist Start: 10-10-2022 End: 03-28-2023 take 1 tablet by mouth every eight hours as needed for pain Hydrocodone-Acetami nophen 5-325 mg tablet Discontinued 1 TAB PO Q8H as needed for pain 10 October 10, 2022 March 28, 2023 9:04am take 1 tablet by lenin every six hours as needed for pain HYDROcodone-Acetaminophen 5-325 MG TAKE 1 TABLET BY MOUTH EVERY 6 HOURS NEEDED FOR PAIN Oral for 7 Days Not-Taking [id number] 200 actuat albuterol 0.09 mg/actuat metered dose inhaler (4 sources) beta2-Adrenergic Agonist Start: 03-28-2023 End: 01-17-2024 Albuterol Sulfate (Ventolin Hfa) 90 mcg/actuation HFA aerosol inhaler Discontinued 1 INH INHALATION EVERY 4-6 HOURS as needed for shortness of breath or wheezing 6.7 March 27, 2023 11:00pm January 17, 2024 2:51pm cholecalciferol 1.25 mg oral capsule (9 sources) Vitamin D Start: 01-17-2024 End: 01-18-2024 take 1 capsule by mouth every week Cholecalciferol (Vitamin D3) 1,250 mcg (50,000 unit) capsule Discontinued 1250 MCG PO every week January 17, 2024 12:00am January 18, 2024 9:06am take 1 capsule by mouth every we ek Cholecalciferol 1.25 MG (05751 UT) 1 capsule Orally weekly for 90 days Active fluconazole 100 mg oral tablet (3 sources) Azole Antifungal Start: 01-18-2024 End: 08-08-2024 take 1 tablet by mouth once daily Fluconazole 100 mg tablet Discontinued 100 MG PO Daily 05 21January 18, 2024 12:00am August 08, 2024 1:00pm methylPREDNISolone 4 mg oral tablet (8 sources) Corticosteroid Start: 10-26-2022 Medrol 4 MG as directed Orally Once a day for 6 days Oct, Not-Taking omeprazole 40 mg delayed release oral capsule (14 sources) Proton Pump Inhibitor Start: 10-10-2022 End: 08-08-2024 take 1 capsule by mouth once daily Omeprazole 40 mg capsule,delayed release(DR/EC) Discontinued 40 MG PO Daily October 10, 2022 12:00am August 08, 2024 1:00pm Start: 10-10-2022 Omeprazole Act sil MG October 10, 2022 12:00am predniSONE 50 mg oral tablet (4 sources) Start: 03-28-2023 End: 01-17-2024 take 1 tablet by mouth once daily Prednisone 50 mg tablet Discontinued 50 MG PO Daily 7 March 27, 2023 11:00pm January 17, 2024 2:52pm traMADol hydrochloride 50 mg oral tablet (6 sources) Opioid Agonist Start: 10-10-2022 End: 03-28-2023 Tramadol 50 mg tablet Discontinued MG TABLET October 10, 2022 12:00am March 28, 2023 9:05am Start: 10-10-2022 End: 03-28-2023 Tramadol Discontinued MG TAB LET October 10, 2022 1:00am March 28, 2023 10:05am Problems Active Problems Problem Classification Problem Date Documented Da te Episodic/Chronic Abdominal pain (20 sources) Left lower quadrant pain; Translations: [Acute abdomen] Onset: 12-10-2017 Episodic Anxiety disorders (20 sources) Anxiety state; Translations: [Anxiety state, unspecified] Onset: 03-02-2019 01-17-2024 Chronic Chronic obstructive pulmonary disease and bronchiectasis (17 sources) Acute exacerbation of chronic obstructive airways disease; Translations: [Obstructive chronic bronchitis, with (acute) exacerbation] Onset: 10-13-2017 03-28-2023 Chronic Comment on above: Problem List clean-u p per request of Phys. EHR Cmte Chronic obstructive pulmonary disease and bronchiectasis (2 sources) Bronchitis; Translations: [Bronchitis, not specified as acute or chronic] 12-07-2024 Episodic Conditions associated with dizziness or vertigo (5 sources) Benign paroxysmal positional vertigo; Translations: [Benign paroxysmal vertigo, unspecified ear] Episodic Deficiency and other anemia (15 sources) Anemia; Translations: [Anemia, unspecified] 01-17-2024 Episodic Deficiency and other anemia (2 sources) Anemia, unspecified; Translations: [Anemia, unspecified] 08-08-2024 Episodic Disorders of lipid metabolism (5 sources) Hyperlipidemia; Translations: [Hyperlipidemia, unspecified] Chronic Esophageal disorders (5 sources) Gastro-esophageal reflux disease with esophagitis; Translations: [Gastro-esophageal reflux disease with esophagitis, without bleeding] Chronic Essential hypertension (15 sources) Benign essential hypertension; Translations: [Essential hypertension, benign] Onset: 10-13-2017 01-17-2024 Chronic Genitourinary symptoms and ill-defined conditions (3 sources) Other abnormal findings in urine; Translations: [Unspecified abnormal findings in urine] Onset: 07-30-2021 Episodic Headache; including migraine (20 sources) Frontal headache ; Translations: [Frontal headache] Onset: 06-20-2018 01-17-2024 Episodic Heart valve disorders (8 sources) O/E - cardiac murmur; Translations: [Cardiac murmur, unspecified] 01-17-2024 Episodic Immunizations and screening for infectious disease (5 sources) Vaccination given; Translations: [Encounter for immunization] Episodic Inflammatory diseases of female pelvic organs (3 sources) Vaginitis; Translations: [Acute vaginitis] 01-18-2024 Episodic Malaise and fatigue (11 sources) Fatigue; Translations: [Chronic fatigue, unspecified] Chronic Malaise and fatigue (20 sources) Fatigue; Translations: [Other fatigue] 01-17-2024 Episodic Mood disorders (20 sources) Moderate recurrent major depression; Translations: [Major depressive disorder, recurrent episode, moderate] Onset: 10-13-2017 01-17-2024 Chronic Nausea and vomiting (9 sources) Nausea; Translations: [Nausea] Episodic Nonspecific chest pain (5 sources) Chest pain; Translations: [Chest pain, unspecified] Episodic Nutritional deficiencies (1 source) Iron deficiency Episodic Other aftercare (2 sources) Other prison (current) drug therapy; Translations: [OTH LONG-TERM CURRENT DRUG THERAPY] Onset: 07-30-2021 Episodic Other circulatory disease (8 sources) Elevated blood-pressure reading without diagnosis of hypertension; Translations: [Elevated blood-pressure reading, without diagnosis of hypertension] 01-17-2024 Episodic Other connective tissue disease (5 sources) Pain in limb; Translations: [Pain in left toe(s)] Episodic Other connective tissue disease (5 sources) Pain in right foot; Translations: [Pain in right foot] Episodic Other connective tissue disease (3 sources) Pain in toe; Translations: [Pain in left toe(s)] 01-17-2024 Episodic Other connective tissue disease (3 sources) Foot pain; Translations: [Pain in right foot] 01-17-2024 Episodic Other gastrointestinal disorders (10 sources) Chronic idiopathic constipation; Translations: [Chronic idiopathic constipation] 01-17-2024 Chronic Other gastrointestinal disorders (11 sources) Abdominal bloating; Translations: [Abdominal distension (gaseous)] 01-17-2024 Episodic Other gastrointestinal disorders (4 sources) Abdominal distension (gaseous); Translations: [ABDOMINAL DISTENSION GASEOUS] Onset: 01-11-2023 Episodic Other non-traumatic joint disorders (8 sources) Pain in wrist; Translations: [Pain in [...] Onset: 01-18-2018 Episodic Pancreatic disorders (not diabetes) (9 sources) Acute pancreatitis without necrosis or infection, unspecified; Translations: [Acute pancreatitis] Onset: 07-30-2021 01-17-2024 Episodic Residual codes; unclassified (1 source) Acquired absence of both cervix and uterus; Translations: [ACQUIRED ABSENCE BOTH CERVIX AND UTERUS] Onset: 01-13-2023 Episodic Residual codes; unclassified (15 sources) Amnesia; Translations: [Other amnesia] 01-17-2024 Episodic Residual codes; unclassified (8 sources) Disorientated; Translations: [Disorientation, unspecified] 01-17-2024 Episodic Residual codes; unclassified (3 sources) Memory impairment; Translations: [Other amnesia] 01-17-2024 Episodic Screening and history of mental health and substance abuse codes (1 source) Personal history of nicotine dependence; Translations: [PERSONAL HISTORY OF NICOTINE DEPEND] Onset: 01-13-2023 Episodic Skin and subcutaneous tissue infections (9 sources) Cutaneous abscess of left foot; Translations: [Abscess of foot] Onset: 09-15-2022 Episodic Spondylosis; intervertebral disc disorders; other back problems (12 sources) Cervical spondylosis; Translations: [Spondylosis without myelopathy or radiculopathy, cervical region] Onset: 10-10-2022 10-10-2022 Chronic Comment on above: Problem List clean-u p per request of Phys. EHR Cmte Spondylosis; intervertebral disc disorders; other back problems [...] Onset: 01-11-2019 Episodic Other connective tissue disease (3 sources) Neuropathy; Translations: [Neuralgia and neuritis, unspecified] Onset: 01-11-2019 01-17-2024 Episodic Other non-traumatic joint disorders (4 sources) Pain in left wrist; Translations: [PAIN IN LEFT WRIST] Onset: 05-08-2022 Episodic Residual codes; unclassified (5 sources) Pale complexion; Translations: [Pallor] Onset: 12-03-2017 Episodic Results Test Name Value Interpretation Reference Range Facility Basophils Auto (Bld) [#/Vol] on 08-09-2024 Basophils (Bld) [#/Vol] 0.1 10 3/uL 0.0-0.1 [facility] Basophils/100 WBC Auto (Bld) on 08-09-2024 Basophils/100 WBC (Bld) 0.7 % 0.2-2.0 [facility] Eosinophils/100 WBC Auto (Bl d)on 08-09-2024 Eosinophils/100 WBC (Bld) 3.2 % 0.9-7.0 [facility] Erythrocyte distribution wid th Auto (RBC) [Ratio]on 08-09-2024 Erythrocyte distribution width (RBC) [Ratio] 12.2 % 11.0-15.0 [facility] Estimated glomerular filtrat ion rate (GFR) non- Americanon 08-09-2024 GFR/1.73 sq M.predicted among non-blacks MDRD (S/P/Bld) [Vol rate/Area] mL/min/{1.73_m2} >=60 [facility] Globulin Calc (S) [Mass/Vol] on 08-09-2024 Globulin (S) [Mass/Vol] 3.7 g/dL [facility] Hematocrit Auto (Bld) [Volum e fraction]on 08-09-2024 Hematocrit (Bld) [Volume fraction] 45.1 % 36.0-48.0 [facility] Hemoglobin [Mass/volume] in Bloodon 08-09-2024 Hemoglobin (Bld) [Mass/Vol] 15.2 g/dL 12.0-16.0 [facility] Laboratory - Chemistry and C hemistry - challengeon 08-09-2024 Albumin [Mass/Vol] 3.5 g/dL 3.4-5.0 [facility] ALP [Catalytic activity/Vol] 100 U/L 46-116 [facility] ALT [Catalytic activity/Vol] 17 U/L 14-59 [facility] AST [Catalytic activity/Vol] 14 U/L Low 15-37 [facility] Bilirubin [Mass/Vol] 0.5 mg/dL 0.2-1.0 [facility] Calcium [Mass/Vol] 9.6 mg/dL 8.5-10.1 [facility] Chloride [Moles/Vol] 100 mmol/L 98-107 [facility] CO2 [Moles/Vol] 35.8 mmol/L High 21.0-32.0 [facility] Creatinine [Mass/Vol] 0.81 mg/dL 0.55-1.02 [facility] Ferritin [Mass/Vol] 49.0 ng/mL 8.0-252.0 [facility] GFR/1.73 sq M.predicted MDRD (S/P/Bld) [Vol rate/Area] mL/min/{1.73_m2} >=60 [facility] Glucose [Mass/Vol] 156 mg/dL High 74-106 [facility] Potassium [Moles/Vol] 3.9 mmol/L 3.5-5.1 [facility] Protein [Mass/Vol] 7.2 g/dL 6.4-8.2 [facility] Sodium [Moles/Vol] 138 mmol/L 136-145 [facility] TSH Qn 2.316 m[IU]/L 0.358-3.740 [facility] Urea nitrogen [Mass/Vol] 14.0 mg/dL 7.0-18.0 [facility] Urea nitrogen/Creatinine [Mass ratio] 17.3 mg/mg [facility] Laboratory - Hematology and Cell countson 08-09-2024 Immature granulocytes/100 WBC (Bld) 0.2 % 0.0-0.5 [facility] Leukocytes [#/volume] correc sheila for nucleated erythrocytes in Blood by Automated counon 08-09-2024 WBC corrected for nucl RBC Auto (Bld) [#/Vol] 9.6 10 3/uL 4.0-11.0 [facility] Lymphocytes Auto (Bld) [#/Vo l]on 08-09-2024 Lymphocytes (Bld) [#/Vol] 2.6 10 3/uL 1.2-3.8 [facility] Lymphocytes/100 WBC Auto (Bl d)on 08-09-2024 Lymphocytes/100 WBC (Bld) 26.9 % 20.5-60.0 [facility] MCH Auto (RBC) [Entitic mass ]on 08-09-2024 MCH (RBC) [Entitic mass] 28.5 pg 26.7-34.0 [facility] MCHC Auto (RBC) [Mass/Vol]on 08-09-2024 MCHC (RBC) [Mass/Vol] 33.7 g/dL 29.9-35.2 [facility] MCV Auto (RBC) [Entitic vol] on 08-09-2024 MCV (RBC) [Entitic vol] 84.6 fL 81.0-99.0 [facility] Monocytes Auto (Bld) [#/Vol] on 08-09-2024 Monocytes (Bld) [#/Vol] 0.8 10 3/uL 0.3-0.8 [facility] Monocytes/100 WBC Auto (Bld) on 08-09-2024 Monocytes/100 WBC (Bld) 8.1 % 1.7-12.0 [facility] Neutrophils Auto (Bld) [#/Vo l]on 08-09-2024 Neutrophils (Bld) [#/Vol] 5.8 10 3/uL 1.4-6.5 [facility] Neutrophils/100 WBC Auto (Bl d)on 08-09-2024 Neutrophils/100 WBC (Bld) 60.9 % 43.0-75.0 [facility] No Panel Informationon 08-09 Eosinophils # (Auto) 0.3 10 3/uL 0.0-0.7 [facility] Immature Granulocyte # (Auto) 0.02 10 3/uL 0.00-0.03 [facility] Platelet mean volume Auto (B ld) [Entitic vol]on 08-09-2024 Platelet mean volume (Bld) [Entitic vol] 8.4 fL Low 9.5-13.5 [facility] Platelets Auto (Bld) [#/Vol] on 08-09-2024 Platelets (Bld) [#/Vol] 307 10 3/uL 150-450 [facility] RBC Auto (Bld) [#/Vol]on RBC (Bld) [#/Vol] 5.33 10 6/uL 4.20-5.40 [facility] Serum or plasma albumin/glob ulin mass ratioon 08-09-2024 Albumin/Globulin [Mass ratio] 0.9 {ratio} [facility] Serum or plasma anion gap de terminationon 08-09-2024 Anion gap [Moles/Vol] 6.1 mmol/L [facility] Basic Metabolic Panelon 05 Anion gap [Moles/Vol] 9.4 mmol/L Normal 6.0-15.0 [facility] Comment on above: Performed By: #### B MP, CBC #### [facility] [address] [place] [address] [place] Calcium [Mass/Vol] 8.8 mg/dL Normal 8.6-10.3 [facility] Comment on above: Performed By: #### B MP, CBC #### [facility] [address] [place] [id number] [place] Chloride [Moles/Vol] 102 mmol/L Normal 98-107 [facility] Comment on above: Performed By: #### B MP, CBC #### [facility] [address] [place] [address] [place] CO2 [Moles/Vol] 32.8 mmol/L High 21.0-31.0 [facility] Comment on above: Performed By: #### B MP, CBC #### [facility] [address] Creatinine [Mass/Vol] 0.73 mg/dL Normal 0.60-1.20 [facility] Comment on above: Performed By: #### B MP, CBC #### [facility] [address] [place] [address] [place] Creatinine Clr Calc Pharmacy 56.10 Normal [facility] Comment on above: Result Comment: PERF ORMED BY: [place] [address] PATHOLOGIST SUPERVISOR VENEER AVIVA ELLISON M.D. Performed By: #### B MP, CBC #### [facility] [address] [place] [address] [place] GFR/1.73 sq M.predicted MDRD (S/P/Bld) [Vol rate/Area] mL/min/{1.73_m2} [facility] Comment on above: Performed By: #### B MP, CBC #### [facility] [address] [place] [address] [place] Glucose [Mass/Vol] 113 mg/dL High 70-100 [facility] Comment on above: Result Comment: [facility] Glucose Reference Range is dependent on time and content of last meal. Glucose of more than 200 mg/dL in a nonstressed, ambulatory subject supports the diagnosis of Diabetes Mellitus. ADA recommended reference range Performed By: #### B MP, CBC #### [facility] [address] [place] [address] [place] Potassium [Moles/Vol] 4.2 mmol/L Normal 3.5-5.1 [facility] Comment on above: Performed By: #### B MP, CBC #### [facility] [address] [place] [address] [place] Sodium [Moles/Vol] 140 mmol/L Normal 136-145 [facility] Comment on above: Performed By: #### B MP, CBC #### [address] Urea nitrogen [Mass/Vol] 10 mg/dL Normal 7-25 [facility] Comment on above: Performed By: #### B MP, CBC #### [address] Basophils Auto (Bld) [#/Vol] Ordered By: Shawn Camarillo on 03-28-2023 Basophils (Bld) [#/Vol] 0.1 10*3/uL 0.0-0.2 [facility] Basophils/100 WBC Auto (Bld) Ordered By: Shawn Camarillo on 03-28-2023 Basophils/100 WBC (Bld) 1.0 % . [facility] BioFire Not Detectedon 03-28 BioFire Not Detected Not detected Normal Not Detecte [facility] Comment on above: Result Comment: This is a duplicate RP2.1 COVID (PCR) result to be used for statistical tracking purpose only. PERFORMED BY: [place] [address] PATHOLOGIST SUPERVISOR VENEER AVIVA ELLISON M.D. Performed By: #### R CRIS PANEL UPP., BIOFIRECOVNOTDE #### [address] COVID-19 Detected/Not Detect edOrdered By: Shawn Camarillo on 03-28-2023 SARS-CoV-2 (COVID-19) RNA UMESH+non-probe Ql (Nph) Not detected Not Detecte [facility] Comment on above: This is a duplicate RP2.1 COVID (PCR) result to be used for statistical tracking purpose only. Calcium [Mass/volume] in Ser um or PlasmaOrdered By: Shawn Camarillo on 03-28-2023 Calcium [Mass/Vol] 8.8 mg/dL 8.6-10.3 [facility] Carbon dioxide, total [Moles /volume] in Serum or PlasmaOrdered By: Shawn Camarillo on 03-28-2023 CO2 [Moles/Vol] 32.8 mmol/L 21.0-31.0 [facility] Chloride [Moles/volume] in S nhi or PlasmaOrdered By: Shawn Camarillo on 03-28-2023 Chloride [Moles/Vol] 102 mmol/L 98-107 [facility] Complete Blood Count Auto Di ffon 03-28-2023 Basophils (Bld) [#/Vol] 0.1 10*3/uL Normal 0.0-0.2 [facility] Comment on above: Result Comment: PERF ORMED BY: [place] [address] PATHOLOGIST SUPERVISOR VENEER AVIVA ELLISON M.D. Performed By: #### B MP, CBC #### [address] Basophils/100 WBC (Bld) 1.0 % Normal . [facility] Comment on above: Performed By: #### B MP, CBC #### [address] Eosinophils (Bld) [#/Vol] 0.3 10*3/uL Normal 0.0-0.45 [facility] Comment on above: Performed By: #### B MP, CBC #### [address] Eosinophils/100 WBC (Bld) 3.2 % Normal . [facility] Comment on above: Performed By: #### B MP, CBC #### [address] Erythrocyte distribution width (RBC) [Ratio] 12.8 % Normal 11.9-15.3 [facility] Comment on above: Performed By: #### B MP, CBC #### [address] Hematocrit (Bld) [Volume fraction] 45.9 % Normal 34.0-46.4 [facility] Comment on above: Performed By: #### B MP, CBC #### [address] Hemoglobin (Bld) [Mass/Vol] 15.5 g/dL High 11.8-15.4 [facility] Comment on above: Performed By: #### B MP, CBC #### [address] Lymphocytes (Bld) [#/Vol] 2.0 10*3/uL Normal 1.00-4.8 [facility] Comment on above: Performed By: #### B MP, CBC #### [address] Lymphocytes/100 WBC (Bld) 23.9 % Normal . [facility] Comment on above: Performed By: #### B MP, CBC #### [address] MCH (RBC) [Entitic mass] 28.2 pg Normal 24.7-34.3 [facility] Comment on above: Performed By: #### B MP, CBC #### [address] MCV (RBC) [Entitic vol] 83.6 fL Normal 80-100 [facility] Comment on above: Performed By: #### B MP, CBC #### [address] Mean Corpuscular HGB Conc 33.8 g/dL Normal 32.0-35.0 [facility] Comment on above: Performed By: #### B MP, CBC #### [address] Monocytes (Bld) [#/Vol] 0.6 10*3/uL Normal 0.0-0.8 [facility] Comment on above: Performed By: #### B MP, CBC #### [address] Monocytes/100 WBC (Bld) 17.31 % Normal 0.00-20.00 [facility] Comment on above: Performed By: #### B MP, CBC #### [address] Monocytes/100 WBC (Bld) 6.9 % Normal . [facility] Comment on above: Performed By: #### B MP, CBC #### [facility] [address] [place] [address] [place] Neutrophils (Bld) [#/Vol] 5.6 10*3/uL Normal 1.8-7.7 [facility] Comment on above: Performed By: #### B MP, CBC #### [facility] [address] [place] [address] [place] Neutrophils/100 WBC (Bld) 65.0 % Normal . [facility] Comment on above: Performed By: #### B MP, CBC #### [facility] [address] [place] [address] [place] NRBC% 0.0 /100{WBC} Normal 0-0.5 [facility] Comment on above: Performed By: #### B MP, CBC #### [facility] [address] [place] [address] [place] Platelet mean volume (Bld) [Entitic vol] 6.3 fL Normal 6.3-10.7 [facility] Comment on above: Performed By: #### B MP, CBC #### [facility] [address] [place] [address] [place] Platelets (Bld) [#/Vol] 323 10*3/uL Normal 150-450 [facility] Comment on above: Performed By: #### B MP, CBC #### [facility] [address] [place] [address] [place] RBC (Bld) [#/Vol] 5.49 10*6/uL High 3.60-5.00 [facility] Comment on above: Performed By: #### B MP, CBC #### [facility] [address] [place] [address] [place] WBC (Bld) [#/Vol] 8.6 10*3/uL Normal 3.8-11.6 [facility] Comment on above: Performed By: #### B MP, CBC #### [facility] [address] [place] [address] [place] Creatinine [Mass/volume] in Serum or PlasmaOrdered By: Shawn Camarillo on 03-28-2023 Creatinine [Mass/Vol] 0.73 mg/dL 0.60-1.20 [facility] Eosinophils Auto (Bld) [#/Vo l]Ordered By: Shawn Camarillo on 03-28-2023 Eosinophils (Bld) [#/Vol] 0.3 10*3/uL 0.0-0.45 [facility] Eosinophils/100 WBC Auto (Bl d)Ordered By: Shawn Camarillo on 03-28-2023 Eosinophils/100 WBC (Bld) 3.2 % . [facility] Erythrocyte distribution wid th Auto (RBC) [Ratio]Ordered By: Shawn Camarillo on 03-28-2023 Erythrocyte distribution width (RBC) [Ratio] 12.8 % 11.9-15.3 [facility] Glucose [Mass/volume] in Ser um or PlasmaOrdered By: Shawn Camarillo on 03-28-2023 Glucose [Mass/Vol] 113 mg/dL 70-100 [facility] Comment on above: ADA recommended refe rence rangeRandom Glucose Reference Range is dependent on time and content of last meal. Glucose of more than 200 mg/dL in a nonstressed, ambulatory subject supports the diagnosis of Diabetes Mellitus. Hematocrit Auto (Bld) [Volum e fraction]Ordered By: Shawn Camarillo on 03-28-2023 Hematocrit (Bld) [Volume fraction] 45.9 % 34.0-46.4 [facility] Hemoglobin [Mass/volume] in BloodOrdered By: Shawn Camarillo on 03-28-2023 Hemoglobin (Bld) [Mass/Vol] 15.5 g/dL 11.8-15.4 [facility] Leukocytes [#/volume] correc sheila for nucleated erythrocytes in Blood by Automated counOrdered By: Shawn Camarillo on 03-28-2023 WBC corrected for nucl RBC Auto (Bld) [#/Vol] 8.6 10*3/uL 3.8-11.6 [facility] Lymphocytes Auto (Bld) [#/Vo l]Ordered By: Shawn Camarillo on 03-28-2023 Lymphocytes (Bld) [#/Vol] 2.0 10*3/uL 1.00-4.8 [facility] Lymphocytes/100 WBC Auto (Bl d)Ordered By: Shawn Camarillo on 03-28-2023 Lymphocytes/100 WBC (Bld) 23.9 % . [facility] MCH Auto (RBC) [Entitic mass ]Ordered By: Shawn Camarillo on 03-28-2023 MCH (RBC) [Entitic mass] 28.2 pg 24.7-34.3 [facility] MCHC Auto (RBC) [Mass/Vol]Or dered By: Shawn Camarillo on 03-28-2023 MCHC (RBC) [Mass/Vol] 33.8 g/dL 32.0-35.0 [facility] MCV Auto (RBC) [Entitic vol] Ordered By: Shawn Camarillo on 03-28-2023 MCV (RBC) [Entitic vol] 83.6 fL 80-100 [facility] Monocyte distribution width [Entitic volume] in Blood by AutomatedOrdered By: Shawn Camarillo on 03-28-2023 Monocyte distribution width Auto (Bld) [Entitic vol] 17.31 % 0.00-20.00 [facility] Monocytes Auto (Bld) [#/Vol] Ordered By: Shawn Camarillo on 03-28-2023 Monocytes (Bld) [#/Vol] 0.6 10*3/uL 0.0-0.8 [facility] Monocytes/100 WBC Auto (Bld) Ordered By: Shawn Camarillo on 03-28-2023 Monocytes/100 WBC (Bld) 6.9 % . [facility] Neutrophils Auto (Bld) [#/Vo l]Ordered By: Shawn Camarillo on 03-28-2023 Neutrophils (Bld) [#/Vol] 5.6 10*3/uL 1.8-7.7 [facility] Neutrophils/100 WBC Auto (Bl d)Ordered By: Shawn Camarillo on 03-28-2023 Neutrophils/100 WBC (Bld) 65.0 % . [facility] No Panel InformationOrdered By: Shawn Camarillo on 03-28-2023 Estimated GFR (CKD-EPI) > 60.0 mL/Min [facility] Creatinine Clearance (Chem 56.10 [facility] Nucleated erythrocytes [Pres ence] in Blood by Automated countOrdered By: Shawn Camarillo on 03-28-2023 Nucleated RBC Auto Ql (Bld) 0.0 /100{WBC} 0-0.5 [facility] Platelet mean volume Auto (B ld) [Entitic vol]Ordered By: Shawn Camarillo on 03-28-2023 Platelet mean volume (Bld) [Entitic vol] 6.3 fL 6.3-10.7 [facility] Platelets Auto (Bld) [#/Vol] Ordered By: Shawn Camarillo on 03-28-2023 Platelets (Bld) [#/Vol] 323 10*3/uL 150-450 [facility] Potassium [Moles/volume] in Serum or PlasmaOrdered By: Shawn Camarillo on 03-28-2023 Potassium [Moles/Vol] 4.2 mmol/L 3.5-5.1 [facility] RBC Auto (Bld) [#/Vol]Ordere d By: Shawn Camarillo on 03-28-2023 RBC (Bld) [#/Vol] 5.49 10*6/uL 3.60-5.00 [facility] Respiratory (Upper) Panel, P CRon 03-28-2023 Respiratory [...] Influenza A H3 Blank Space PERFORMED BY: [place] [address] PATHOLOGIST SUPERVISOR VENEER AVIVA ELLISON M.D. Normal [facility] Comment on above: Performed By: #### R CRIS PANEL UPP., BIOFIRECOVNOTDE #### [address] Respiratory pathogens DNA an d RNA panel - Nasopharynx by UMESH with non-probe detectionOrdered By: Shawn Camarillo on 03-28-2023 Respiratory pathogens DNA and RNA panel UMESH+non-probe (Nph) [facility] Serum or plasma anion gap de terminationOrdered By: Shawn Camarillo on 03-28-2023 Anion gap [Moles/Vol] 9.4 mmol/L 6.0-15.0 [facility] Sodium [Moles/volume] in Ser um or PlasmaOrdered By: Shawn Camarillo on 03-28-2023 Sodium [Moles/Vol] 140 mmol/L 136-145 [facility] Urea nitrogen [Mass/volume] in Serum or PlasmaOrdered By: Shawn Camarillo on 03-28-2023 Urea nitrogen [Mass/Vol] 10 mg/dL 7-25 [facility] WBC Auto (Bld) [#/Vol]Ordere d By: Shawn Camarillo on 03-28-2023 WBC (Bld) [#/Vol] 8.6 10*3/uL 3.8-11.6 [facility] XR chest 1V portableon 03-28 XR chest 1V portable [facility] [place] [address] [place] [address] XRay Report Signed Patient: Nya Jiang MR#: [id number] : 1945 Acct:[id number] Age/Sex: 77 / F ADM Date: 03/28/23 Loc: ER Room: Type: [facility] ER Attending Dr: Copies to: Shawn Camarillo [...] Nata Zamudio M.D.03/28/2023 10:20 AM Dictation Location: [place] [address] Transcribed By: [facility] 03/28/23 1020 Dictated By: Nata Zamudio II, MD 03/28/23 1019 Signed By: 03/28/23 1020 [facility] CBC AUTO DIFFon 01-11-2023 BASO # 0.1 103/ul Normal 0.0-0.1 [facility] Comment on above: Performed By: #### U MICRO, ERUR #### [facility] [address] [place] [address] Dr. Otf Rodriguez Basophils/100 WBC (Bld) 0.5 % Normal 0.2-2.0 [facility] Comment on above: Performed By: #### U MICRO, ERUR #### [facility] [address] [place] [address] [address] Otf Rodriguez EO # 0.3 103/ul Normal 0.0-0.7 [facility] Comment on above: Performed By: #### U MICRO, ERUR #### [facility] [address] [place] [address] [address] Otf Rodriguez Eosinophils/100 WBC (Bld) 1.8 % Normal 0.9-7.0 [facility] Comment on above: Performed By: #### U MICRO, ERUR #### [facility] [address] [place] [address] [address] Otf Rodriguez Erythrocyte distribution width (RBC) [Ratio] 12.4 % Normal 11.0-15.0 [facility] Comment on above: Performed By: #### U MICRO, ERUR #### [facility] [address] [place] [address] Dr. Otf Rodriguez Hematocrit (Bld) [Volume fraction] 46.0 % Normal 36.0-48.0 [facility] Comment on above: Performed By: #### U MICRO, ERUR #### [facility] [address] [place] [address] Dr. Otf Rodriguez Hemoglobin (Bld) [Mass/Vol] 16.0 g/dL Normal 12.0-16.0 [facility] Comment on above: Performed By: #### U MICRO, ERUR #### [facility] [address] [place] [address] Dr. Otf Rodriguez IG # 0.05 10e3/ul Critically high 0.00-0.03 [facility] Comment on above: Performed By: #### U MICRO, ERUR #### [facility] [address] [place] [address] Dr. Otf Rodriguez IG % 0.3 % Normal 0.0-0.5 [facility] Comment on above: Performed By: #### U MICRO, ERUR #### [facility] [address] [place] [address] Dr. Otf Rodriguez LYMPH # 2.5 103/ul Normal 1.2-3.8 [facility] Comment on above: Performed By: #### U MICRO, ERUR #### [facility] [address] [place] [address] Dr. Otf Rodriguez Lymphocytes/100 WBC (Bld) 16.8 % Critically low 20.5-60.0 [facility] Comment on above: Performed By: #### U MICRO, ERUR #### [facility] [address] [place] [address] Dr. Otf Rodriguez MANUAL DIFF REQ NO Normal [facility] Comment on above: Performed By: #### U MICRO, ERUR #### [facility] [address] [place] [address] Dr. Otf Rodriguez MCH (RBC) [Entitic mass] 28.7 pg Normal 26.7-34.0 [facility] Comment on above: Performed By: #### U MICRO, ERUR #### [facility] [address] [place] [address] Dr. Otf Rodriguez MCHC (RBC) [Mass/Vol] 34.8 g/dL Normal 29.9-35.2 [facility] Comment on above: Performed By: #### U MICRO, ERUR #### [facility] [address] [place] [address] Dr. Otf Rodriguez MCV (RBC) [Entitic vol] 82.4 fL Normal 81.0-99.0 [facility] Comment on above: Performed By: #### U MICRO, ERUR #### [facility] [address] [place] [address] Dr. Otf Rodriguez MONO # 1.0 103/ul Critically high 0.3-0.8 [facility] Comment on above: Performed By: #### U MICRO, ERUR #### [facility] [address] [place] [address] Dr. Otf Rodriguez Monocytes/100 WBC (Bld) 6.5 % Normal 1.7-12.0 [facility] Comment on above: Performed By: #### U MICRO, ERUR #### [facility] [address] [place] [address] Dr. Otf Rodriguez NEUT # 11.2 103/ul Critically high 1.4-6.5 [facility] Comment on above: Performed By: #### U MICRO, ERUR #### [facility] [address] [place] [address] Dr. Otf Rodriguez Neutrophils/100 WBC (Bld) 74.1 % Normal 43.0-75.0 [facility] Comment on above: Performed By: #### U MICRO, ERUR #### [facility] [address] [place] [address] [address] Otf Rodriguez Platelet mean volume (Bld) [Entitic vol] 8.1 fL Critically low 9.5-13.5 [facility] Comment on above: Performed By: #### U MICRO, ERUR #### [facility] [address] [place] [address] [address] Otf Rodriguez PLT 338 103/ul Normal 150-450 [facility] Comment on above: Performed By: #### U MICRO, ERUR #### [facility] [address] [place] [address] [address] Otf Rodriguez RBC 5.58 106/ul Critically high 4.20-5.40 [facility] Comment on above: Performed By: #### U MICRO, ERUR #### [facility] [address] [place] [address] [address] Otf Rodriguez WBC 15.1 103/ul Critically high 4.0-11.0 [facility] Comment on above: Performed By: #### U MICRO, ERUR #### [facility] [address] [place] [address] [address] ABD/PELV W CONon [...] CELENA WATSON Date: 2023-01-11 19:32 Normal [facility] ER URINE PROFILEon 3 Bilirubin Ql (U) Negative Normal NEGATIVE [facility] Comment on above: Performed By: #### U MICRO, ERUR #### [facility] [address] [place] [address] [address] Otf Rodriguez Clarity (U) CLEAR Normal CLEAR [facility] Comment on above: Performed By: #### U MICRO, ERUR #### [facility] [address] [place] [address] [address] Otf Rodriguez Color (U) LT. YELLOW Normal YELLOW [facility] Comment on above: Performed By: #### U MICRO, ERUR #### [facility] [address] [place] [address] [address] Otf Rodriguez ERUAHD A micrscopic examination will be performed if indicated. Normal [facility] Comment on above: Performed By: #### U MICRO, ERUR #### [facility] [address] [place] [address] [address] Otf Rodriguez Glucose Ql (U) Negative Normal NEGATIVE [facility] Comment on above: Performed By: #### U MICRO, ERUR #### [facility] [address] [place] [address] [address] Otf Rodriguez Hemoglobin Ql (U) TRACE-LYSED Abnormal NEGATIVE [facility] Comment on above: Performed By: #### U MICRO, ERUR #### [facility] [address] [place] [address] Dr. Otf Rodriguez Ketones Ql (U) Negative Normal NEGATIVE [place] Comment on above: Performed By: #### U MICRO, ERUR #### [facility] [address] [place] [address] Dr. Otf Rodriguez LEUKOCYTES TRACE Abnormal NEGATIVE [facility] Comment on above: Performed By: #### U MICRO, ERUR #### [facility] [address] [place] [address] Dr. Otf Rdoriguez Nitrite Ql (U) Negative Normal NEGATIVE [place] Comment on above: Performed By: #### U MICRO, ERUR #### [facility] [address] [place] [address] Dr. Otf Rodriguez pH (U) 7.0 [pH] Normal 5-9 [facility] Comment on above: Performed By: #### U MICRO, ERUR #### [facility] [address] [place] [address] Dr. Otf Rodriguez Protein (U) [Mass/Vol] 30 mg/dL Abnormal NEGAT SIL/ TRACE [facility] Comment on above: Performed By: #### U MICRO, ERUR #### [facility] [address] [place] [address] Dr. Otf Rodriguez SPEC GRAVITY 1.010 Normal 1.005-<=1.025 [facility] Comment on above: Performed By: #### U MICRO, ERUR #### [facility] [address] [place] [address] Dr. Otf Rodriguez UR MICRO IND INDICATED Normal [facility] Comment on above: Performed By: #### U MICRO, ERUR #### [facility] [address] [place] [address] Dr. Otf Rodriguez Urobilinogen Qn (U) 0.2 {Tian'U}/dL Normal 0.2 - 1. 0 [facility] Comment on above: Performed By: #### U MICRO, ERUR #### [facility] [address] [place] [address] Dr. Otf Rodriguez LACTATE/LACTIC ACIDon 2022 Lactate [Moles/Vol] 0.6 mmol/L Normal 0.4-1.9 [facility] Comment on above: Performed By: #### L ACT #### [facility] [address] [place] [address] Dr. Otf Rodriguez LIPASEon 01-11-2023 Lipase [Catalytic activity/Vol] 159.0 U/L Normal 73.0-393.0 [facility] Comment on above: Performed By: #### U MICRO, ERUR #### [facility] [address] [place] [address] Dr. Otf Rodriguez PROF 14(COMP METB)on 023 Albumin [Mass/Vol] 4.0 g/dL Normal 3.4-5.[address] [facility] Comment on above: Performed By: #### U MICRO, ERUR #### [facility] [address] [place] [address] Dr. Otf Rodriguez Albumin/Globulin [Mass ratio] 1.1 {ratio} Normal [facility] Comment on above: Performed By: #### U MICRO, ERUR #### [facility] [address] [place] [address] Dr. Otf Rodriguez ALP [Catalytic activity/Vol] 128 U/L Critically high 46-116 [facility] Comment on above: Performed By: #### U MICRO, ERUR #### [facility] [address] [place] [address] Dr. Otf Rodriguez ALT [Catalytic activity/Vol] 20 U/L Normal 14-59 [facility] Comment on above: Performed By: #### U MICRO, ERUR #### [facility] [address] [place] [address] Dr. Otf Rodriguez Anion gap [Moles/Vol] 11.0 mmol/L Normal [facility] Comment on above: Performed By: #### U MICRO, ERUR #### [facility] [address] [place] [address] [address] Otf Rodriguez AST [Catalytic activity/Vol] 19 U/L Normal 15-37 [facility] Comment on above: Performed By: #### U MICRO, ERUR #### [facility] [address] [place] [address] [address] Otf Rodriguez Bilirubin [Mass/Vol] 0.4 mg/dL Normal 0.2-1.0 [facility] Comment on above: Performed By: #### U MICRO, ERUR #### [facility] [address] [place] [address] [address] Otf Rodriguez Calcium [Mass/Vol] 9.2 mg/dL Normal 8.5-10.[address] [facility] Comment on above: Performed By: #### U MICRO, ERUR #### [facility] [address] [place] [address] Dr. Otf Rodriguez Chloride [Moles/Vol] 99 mmol/L Normal 98-107 [facility] Comment on above: Performed By: #### U MICRO, ERUR #### [facility] [address] [place] [address] [address] Otf Rodriguez CO2 [Moles/Vol] 29.7 mmol/L Normal 21.0-32.0 [facility] Comment on above: Performed By: #### U MICRO, ERUR #### [facility] [address] [place] [address] Dr. Otf Rodriguez Creatinine [Mass/Vol] 0.71 mg/dL Normal 0.55-1.02 [facility] Comment on above: Performed By: #### U MICRO, ERUR #### [facility] [address] [place] [address] [address] Otf Rodriguez EGFR-AF JAPANESE >60 Normal >=60 [facility] Comment on above: Performed By: #### U MICRO, ERUR #### [facility] [address] [place] [address] [address] Otf Rodriguez EGFR-NON AF JAPANESE >60 Normal >=60 [facility] Comment on above: Performed By: #### U MICRO, ERUR #### [facility] [address] [place] [address] [address] Otf Rodriguez Globulin (S) [Mass/Vol] 3.6 g/dL Normal [facility] Comment on above: Performed By: #### U MICRO, ERUR #### [facility] [address] [place] [address] [address] Otf Rodriguez Glucose [Mass/Vol] 129 mg/dL Critically high 74-106 [facility] Comment on above: Performed By: #### U MICRO, ERUR #### [facility] [address] [place] [address] [address] Otf Rodriguez Potassium [Moles/Vol] 3.7 mmol/L Normal 3.5-5.1 [facility] Comment on above: Performed By: #### U MICRO, ERUR #### [facility] [address] [place] [address] Dr. Otf Rodriguez Protein [Mass/Vol] 7.6 g/dL Normal 6.4-8.[address] [facility] Comment on above: Performed By: #### U MICRO, ERUR #### [facility] [address] [place] [address] Dr. Otf Rodriguez Sodium [Moles/Vol] 136 mmol/L Normal 136-[address] [facility] Comment on above: Performed By: #### U MICRO, ERUR #### [facility] [address] [place] [address] Dr. Otf Rodriguez Urea nitrogen [Mass/Vol] 11.0 mg/dL Normal 7.0-18.0 [facility] Comment on above: Performed By: #### U MICRO, ERUR #### [facility] [address] [place] [address] Dr. Otf Rodriguez Urea nitrogen/Creatinine [Mass ratio] 15.5 mg/mg Normal [facility] Comment on above: Performed By: #### U MICRO, ERUR #### [facility] [address] [place] [address] Dr. Otf Rodriguez TROPONIN, HIGH SENSITIVITYon 01-11-2023 HSTROP 11.8 pg/mL Normal 4.0-51.3 [facility] Comment on above: Result Comment: CUT- OFF POINTS HAVE BEEN ESTABLISHED BASED ON THE FOURTH UNIVERSAL DEFINITIONS OF MYOCARDIAL INFARCTION. THE UPPER REFERENCE LIMIT (URL) OF TROPONIN, DEFINED THE 99TH PERCENTILE OF cTnI DISTRIBUTION IN A REFERENCE POPULATION, HAS BEEN CONFIRMED THE DECISION THRESHOLD FOR MT DIAGNOSIS. Performed By: #### U MICRO, ERUR #### [facility] [address] [place] [address] Dr. Otf Rodriguez URINE MICROSCOPIC ONLYon BACTERIA NONE SEEN Normal NONE SEEN [facility] Comment on above: Performed By: #### U MICRO, ERUR #### [facility] [address] [place] [address] Dr. Otf Rodriguez Bacteria identified Cx Nom (U) NOT INDICATED Normal [facility] Comment on above: Performed By: #### U MICRO, ERUR #### [facility] [address] [place] [address] Dr. Otf Rodriguez CAST NONE SEEN Normal NONE SEEN [facility] Comment on above: Performed By: #### U MICRO, ERUR #### [facility] [address] [place] [address] Dr. Otf Rodriguez Crystals LM Nom (Urine sed) NONE SEEN Normal NONE SEEN [facility] Comment on above: Performed By: #### U MICRO, ERUR #### [facility] [address] [place] [address] Dr. Otf Rodriguez Epithelial cells LM Ql (Urine sed) NONE SEEN Normal NONE SEEN /RARE [facility] Comment on above: Performed By: #### U MICRO, ERUR #### [facility] [address] [place] [address] Dr. Otf Rodriguez MUCOUS NONE SEEN Normal NONE SEEN [facility] Comment on above: Performed By: #### U MICRO, ERUR #### [facility] [address] [place] [address] Dr. Otf Rodriguez RBC 0-2 Normal 0-2 [facility] Comment on above: Performed By: #### U MICRO, ERUR #### [facility] [address] [place] [address] Dr. Otf Rodriguez WBC 0-2 Abnormal NONE SEEN [facility] Comment on above: Performed By: #### U MICRO, ERUR #### [facility] [address] [place] [address] [address] Otf Rodriguez MRI CSPINE WO CONon [...] C3-C4 foraminal stenosis Electronically authenticated by: CRISTIANE SIMPSON Date: 2022-10-16 10:04 Normal [facility] CT cervical spine wo conon 1 12-10-2021 CT cervical spine wo con [facility] [place] [address] [place] [address] CT Scan Report Signed Patient: Nya Jiang MR#: [id number] : 1945 Acct:[id number] Age/Sex: 77 / F ADM Date: 10/10/22 Loc: ER Room: Type: [facility] ER Attending Dr: Copies to: Marek Rolle [...] Neema Niño M.D.10/10/2022 11:20 AM Dictation Location: [place] [address] Transcribed By: [facility] 10/10/22 1120 Dictated By: Neema Niño MD 10/10/22 1110 Signed By: 10/10/22 1120 [facility] XR CSPINE 2_3 VIEWSon 2021 XR CSPINE [...] CRISTIANE SIMPSON Date: 2022-10-01 12:07 Normal [facility] CULTURE WOUNDon 09-15-2022 CULTURE WOUND Culture Observations: No growth of aerobes at 48 hours. Culture Observations: No growth of anaerobes at 72 hours. Normal [facility] Comment on above: Performed By: #### W OUNDCX #### [facility] [address] [place] [address] [address] Otf Rodriguez GRAM STAINon 09-15-2022 COMMENTS NO ORGANISMS OBSERVED Normal [facility] Comment on above: Performed By: #### G STAIN #### [facility] [address] [place] [address] [address] Otf Rodriguez DIPHTHEROIDS Normal [facility] Comment on above: Performed By: #### G STAIN #### [facility] [address] [place] [address] [address] Otf Rodriguez EPITHELIALS Normal [facility] Comment on above: Performed By: #### G STAIN #### [facility] [address] [address] [address] Otf Rodriguez FUNGAL ELEMENTS Normal [facility] Comment on above: Performed By: #### G STAIN #### [facility] [address] [address] [address] Otf Rodriguez GRAM NEG BACILLI Normal [facility] Comment on above: Performed By: #### G STAIN #### [facility] [address] [address] [address] Otf MOYA NEG DIPPLOCOCCI Normal [facility] Comment on above: Performed By: #### G STAIN #### [facility] [address] [address] [address] Otf Rodriguez GRAM POS BACILLI Normal [facility] Comment on above: Performed By: #### G STAIN #### [facility] [address] [place] [address] Dr. Otf Rodriguez GRAM POSITIVE COCCI Normal [facility] Comment on above: Performed By: #### G STAIN #### [facility] [address] [address] [address] Otf Rodriguez GRAM STAIN SOURCE Lt 4th Toe Abscess Normal [facility] Comment on above: Performed By: #### G STAIN #### [facility] [address] [address] [address] Otf Rodriguez GS_DIPTH Normal [facility] Comment on above: Performed By: #### G STAIN #### [facility] [address] [address] [address] Otf Rodriguez WBC NONE SEEN Normal [facility] Comment on above: Performed By: #### G STAIN #### [facility] [address] [address] [address] Otf Rodriguez AMYLASEon 07-14-2021 AMYL <30 Critically low 31-110 [facility] Comment on above: Performed By: #### C MP, DHIRAJ, LIPA #### [facility] [address] [address] Jasper Bethea CARDIAC NATA 3-6on 1 CK [Catalytic activity/Vol] 194 U/L Critically high 30-135 [facility] Comment on above: Performed By: #### C VDTBH #### [facility] [address] [place], [place] [id number] Jasper Bethea CK.MB [Mass/Vol] 0.97 ng/mL Normal <=2.37 [facility] Comment on above: Performed By: #### C VDTBH #### [facility] [address] [place] [address] Jasper Bethea HSTROP 16.0 pg/mL Normal 4.0-35.5 [facility] Comment on above: Result Comment: CUT- OFF POINTS HAVE BEEN ESTABLISHED BASED ON THE FOURTH UNIVERSAL DEFINITIONS OF MYOCARDIAL INFARCTION. THE UPPER REFERENCE LIMIT (URL) OF TROPONIN, DEFINED THE 99TH PERCENTILE OF cTnI DISTRIBUTION IN A REFERENCE POPULATION, HAS BEEN CONFIRMED THE DECISION THRESHOLD FOR MT DIAGNOSIS. Performed By: #### C VDTBH #### [facility] [address] [place] [address] Jasper Bethea CBC AUTO DIFFon 07-14-2021 BASO # 0.0 103/ul Normal 0.0-0.1 [facility] Comment on above: Performed By: #### C VDTBH #### [facility] [address] [place] [address] Jasper Bethea Basophils/100 WBC (Bld) 0.3 % Normal 0.2-2.0 [facility] Comment on above: Performed By: #### C VDTBH #### [facility] [address] [place] [address] Jasper Bethea EO # 0.0 103/ul Normal 0.0-0.7 [facility] Comment on above: Performed By: #### C VDTBH #### [facility] [address] [place], [place] [id number] Jasper Neema Eosinophils/100 WBC (Bld) 0.0 % Critically low 0.9-7.0 [facility] Comment on above: Performed By: #### C VDTBH #### [facility] [address] [place], [place] [id number] Jasper Bethea Erythrocyte distribution width (RBC) [Ratio] 13.2 % Normal 11.0-15.0 [facility] Comment on above: Performed By: #### C VDTBH #### [facility] [address] [place] [address] Jasper Bethea Hematocrit (Bld) [Volume fraction] 42.6 % Normal 36.0-48.0 [facility] Comment on above: Performed By: #### C VDTBH #### [facility] [address] [place] [address] Jasper Bethea Hemoglobin (Bld) [Mass/Vol] 13.7 g/dL Normal 12.0-16.0 [facility] Comment on above: Performed By: #### C VDTBH #### [facility] [address] [place] [address] Jasper Bethea IG # 0.03 10e3/ul Normal 0.00-0.03 [facility] Comment on above: Performed By: #### C VDTB #### [facility] [address] [place] [address] Jasperjanet Bethea IG % 0.3 % Normal 0.0-0.5 [facility] Comment on above: Performed By: #### C VDTBH #### [facility] [address] [place] [address] Jasper Bethea LYMPH # 1.1 103/ul Critically low 1.2-3.8 [place] Comment on above: Performed By: #### C VDTBH #### [facility] [address] [place] [address] Jasper Bethea Lymphocytes/100 WBC (Bld) 10.0 % Critically low 20.5-60.0 [facility] Comment on above: Performed By: #### C VDTBH #### [facility] [address] [place] [address] Jasper Bethea MANUAL DIFF REQ NO Normal [facility] Comment on above: Performed By: #### C VDTBH #### [facility] [address] [place] [address] Jasper Neema MCH (RBC) [Entitic mass] 27.6 pg Normal 26.7-34.0 [facility] Comment on above: Performed By: #### C VDTBH #### [facility] [address] [place], [place] [id number] Jasper Bethea MCHC (RBC) [Mass/Vol] 32.2 g/dL Normal 29.9-35.2 [facility] Comment on above: Performed By: #### C VDTBH #### [facility] [address] [place] [address] Jasper Neema MCV (RBC) [Entitic vol] 85.9 fL Normal 81.0-99.0 [facility] Comment on above: Performed By: #### C VDTBH #### [facility] [address] [place] [address] Jasper Bethea MONO # 0.6 103/ul Normal 0.3-0.8 [facility] Comment on above: Performed By: #### C VDTBH #### [facility] [address] [place] [address] Jasper Neema Monocytes/100 WBC (Bld) 5.4 % Normal 1.7-12.0 [facility] Comment on above: Performed By: #### C VDTBH #### [facility] [address] [place] [address] Jasper Bethea NEUT # 9.4 103/ul Critically high 1.4-6.5 [facility] Comment on above: Performed By: #### C VDTBH #### [facility] [address] [place] [address] Jasper Neema Neutrophils/100 WBC (Bld) 84.0 % Critically high 43.0-75.0 [facility] Comment on above: Performed By: #### C VDTBH #### [facility] [address] [place], [place] [id number] Jasper Bethea Platelet mean volume (Bld) [Entitic vol] 8.7 fL Critically low 9.5-13.5 [facility] Comment on above: Performed By: #### C VDTBH #### [facility] [address] [place] [address] Jasper Bethea PLT 256 103/ul Normal 150-450 [facility] Comment on above: Performed By: #### C VDTBH #### [facility] [address] [place], [place] [phone] Jasper Bethea RBC 4.96 106/ul Normal 4.20-5.40 [facility] Comment on above: Performed By: #### C VDTBH #### [facility] [address] [place], [place] [phone] Jasper Bethea WBC 11.1 103/ul Critically high 4.0-11.0 [facility] Comment on above: Performed By: #### C VDTBH #### [facility] [address] [place] [address] Jasper Bethea CULTURE URINEon 07-14-2021 CULTURE URINE Culture Observations: GREATER THAN TWO ORGANISMS PRESENT. PLEASE RESUBMIT CLEAN CATCH MID-STREAM URINE IF CLINICALLY INDICATED. Normal [facility] Comment on above: Performed By: #### C VDTBH #### [facility] [address] [place] [address] Jasper Bethea LIPASEon 07-14-2021 Lipase [Catalytic activity/Vol] 120.0 U/L Normal 23.0-300.0 [facility] Comment on above: Performed By: #### C VDTBH #### [facility] [address] [place], [place] [phone] Jasper Bethea PROF 14(COMP METB)on 021 Albumin [Mass/Vol] 3.0 g/dL Critically low 3.5-5.0 [facility] [place] [facility] Comment on above: Performed By: #### C MING DHIRAJ, LIPA #### [facility] [address] [place], [place] [phone] Jasper Bethea Albumin/Globulin [Mass ratio] 0.8 {ratio} Normal [facility] Comment on above: Performed By: #### C MP DHIRAJ, LIPA #### [facility] [address] [place] [address] Jasper Bethea ALP [Catalytic activity/Vol] 98 U/L Normal 38-126 [facility] Comment on above: Performed By: #### C MP, DHIRAJ, LIPA #### [facility] [address] [place], [place] [address] Jasper Neema ALT [Catalytic activity/Vol] 18 U/L Normal 9-52 [facility] Comment on above: Performed By: #### C MP, DHIRAJ, LIPA #### [facility] [address] [id number] Jasper Neema Anion gap [Moles/Vol] 12.7 mmol/L Normal [facility] [place] [facility] Comment on above: Performed By: #### C MP, DHIRAJ, LIPA #### [facility] [address] [id number] Jasper Neema AST [Catalytic activity/Vol] 24 U/L Normal 14-36 [facility] Comment on above: Performed By: #### C MP, DHIRAJ, LIPA #### [facility] [address] [place] [address] Jasper Neema Bilirubin [Mass/Vol] 0.4 mg/dL Normal 0.2-1.3 [facility] Comment on above: Performed By: #### C MP, DHIRAJ, LIPA #### [facility] [address] [place] [address] Jasper Neema Calcium [Mass/Vol] 8.5 mg/dL Normal 8.4-10.[address] [facility] Comment on above: Performed By: #### C MP, DHIRAJ, LIPA #### [facility] [address] [place] [address] Jasper Neema Chloride [Moles/Vol] 105 mmol/L Normal 98-107 [facility] Comment on above: Performed By: #### C MP, DHIRAJ, LIPA #### [facility] [address] [id number] Jasper Neema CO2 [Moles/Vol] 28.7 mmol/L Normal 22.0-30.0 [facility] Comment on above: Performed By: #### C MP, DHIRAJ, LIPA #### [facility] [address] [address] Jasper Neema Creatinine [Mass/Vol] 0.88 mg/dL Normal 0.52-1.04 [facility] Comment on above: Performed By: #### C MP, DHIRAJ, LIPA #### [facility] [address] [place] [address] Jasper Neema EGFR-AF JAPANESE >60 Normal >=60 [facility] Comment on above: Performed By: #### C MP, DHIRAJ, LIPA #### [facility] [address] [place] [address] Jasper Neema EGFR-NON AF JAPANESE >60 Normal >=60 [facility] Comment on above: Performed By: #### C MP, DHIRAJ, LIPA #### [facility] [address] [place] [address] Jasper Neema Globulin (S) [Mass/Vol] 3.6 g/dL Normal T [facility] Comment on above: Performed By: #### C MP, DHIRAJ, LIPA #### [facility] [address] [place] [address] Jasper Neema Glucose [Mass/Vol] 105 mg/dL Normal 74-[address] [facility] Comment on above: Performed By: #### C MING, DHIRAJ, LIPA #### [facility] [address] [place] [address] Jasper Neema Potassium [Moles/Vol] 4.4 mmol/L Normal 3.4-5.0 [facility] Comment on above: Performed By: #### C MP, DHIRAJ, LIPA #### [facility] [address] [place] [address] Jasper Neema Protein [Mass/Vol] 6.6 g/dL Normal 6.1-8.[address] [facility] Comment on above: Performed By: #### C MP, DHIRAJ, LIPA #### [facility] [address] [place] [address] Jasper Neema Sodium [Moles/Vol] 142 mmol/L Normal 137-[address] [facility] Comment on above: Performed By: #### C MP, DHIRAJ, LIPA #### [facility] [address] [place] [address] Jasper Neema Urea nitrogen [Mass/Vol] 15.0 mg/dL Normal 7.0-17.0 [facility] Comment on above: Performed By: #### C MP, DHIRAJ, LIPA #### [facility] [address] [place], [place] [phone] Jasper Neema Urea nitrogen/Creatinine [Mass ratio] 17.0 mg/mg Normal [facility] Comment on above: Performed By: #### C MP, DHIRAJ, LIPA #### [facility] [address] [place], [place] [phone] Jasper Neema AMYLASEon 07-13-2021 AMYL <30 Critically low 31-110 [place] Comment on above: Performed By: #### A MY, CMP, LIPA #### [facility] [address] [place], [place] [phone] Jasper Neema CBC AUTO DIFFon 07-13-2021 BASO # 0.0 103/ul Normal 0.0-0.1 [facility] Comment on above: Performed By: #### C BC #### [facility] [address] [place], [place] [phone] Jasper Neema Basophils/100 WBC (Bld) 0.3 % Normal 0.2-2.0 [facility] Comment on above: Performed By: #### C BC #### [facility] [address] [place], [place] [phone] Jasper Neema EO # 0.2 103/ul Normal 0.0-0.7 [facility] Comment on above: Performed By: #### C BC #### [facility] [address] [place], [place] [phone] Jasper Neema Eosinophils/100 WBC (Bld) 1.7 % Normal 0.9-7.0 [facility] Comment on above: Performed By: #### C BC #### [facility] [address] [place], [place] [phone] Jasper Neema Erythrocyte distribution width (RBC) [Ratio] 12.8 % Normal 11.0-15.0 [facility] Comment on above: Performed By: #### C BC #### [facility] [address] [place], [place] [phone] Jasper Neema Hematocrit (Bld) [Volume fraction] 43.7 % Normal 36.0-48.0 [facility] Comment on above: Performed By: #### C BC #### [facility] [address] [place] [address] Jasper Bethea Hemoglobin (Bld) [Mass/Vol] 14.3 g/dL Normal 12.0-16.0 [facility] Comment on above: Performed By: #### C BC #### [facility] [address] [place] [address] Jasperjanet Bethea IG # 0.04 10e3/ul Critically high 0.00-0.03 [facility] Comment on above: Performed By: #### C BC #### [facility] [address] [place] [address] Jasperjanet Bethea IG % 0.4 % Normal 0.0-0.5 [facility] Comment on above: Performed By: #### C BC #### [facility] [address] [place] [address] Jasper Bethea LYMPH # 1.6 103/ul Normal 1.2-3.8 [facility] Comment on above: Performed By: #### C BC #### [facility] [address] [place] [address] Jasper Bethea Lymphocytes/100 WBC (Bld) 14.2 % Critically low 20.5-60.0 [facility] Comment on above: Performed By: #### C BC #### [facility] [address] [place] [address] Jasper Bethea MANUAL DIFF REQ NO Normal [facility] Comment on above: Performed By: #### C BC #### [facility] [address] [place], [place] [phone] Jasper Bethea MCH (RBC) [Entitic mass] 27.6 pg Normal 26.7-34.0 [facility] Comment on above: Performed By: #### C BC #### [facility] [address] [place] [address] Jasper Bethea MCHC (RBC) [Mass/Vol] 32.7 g/dL Normal 29.9-35.2 [facility] Comment on above: Performed By: #### C BC #### [facility] [address] [place], [place] [address] Jasper Bethea MCV (RBC) [Entitic vol] 84.2 fL Normal 81.0-99.0 [facility] Comment on above: Performed By: #### C BC #### [facility] [address] [phone] Jasper Bethea MONO # 0.8 103/ul Normal 0.3-0.8 [facility] Comment on above: Performed By: #### C BC #### [facility] [address] [phone] Jasper Bethea Monocytes/100 WBC (Bld) 7.1 % Normal 1.7-12.0 [facility] Comment on above: Performed By: #### C BC #### [facility] [address] [place], [place] [address] Jasper Fitzgeralden NEUT # 8.3 103/ul Critically high 1.4-6.5 [facility] Comment on above: Performed By: #### C BC #### [facility] [address] [place], [place] [address] Jasper Bethea Neutrophils/100 WBC (Bld) 76.3 % Critically high 43.0-75.0 [facility] Comment on above: Performed By: #### C BC #### [facility] [address] [place], [place] [phone] Jasper Bethea Platelet mean volume (Bld) [Entitic vol] 8.5 fL Critically low 9.5-13.5 [facility] Comment on above: Performed By: #### C BC #### [facility] [address] [phone] Jasper Neema PLT 261 103/ul Normal 150-450 [facility] Comment on above: Performed By: #### C BC #### [facility] [address] [place], [place] [address] Jasper Neema RBC 5.19 106/ul Normal 4.20-5.40 [facility] Comment on above: Performed By: #### C BC #### [facility] [address] [address] Jasper Neema WBC 10.9 103/ul Normal 4.0-11.0 [facility] Comment on above: Performed By: #### C BC #### [facility] [address] [place], [place] [phone] Jasper Neema LIPASEon 07-13-2021 Lipase [Catalytic activity/Vol] 575.0 U/L Critically high 23.0-300.0 [facility] Comment on above: Performed By: #### A MY, CMP, LIPA #### [facility] [address] [place], [place] [phone] Jasperjanet Fitzgeralden PROF 14(COMP METB)on 021 Albumin [Mass/Vol] 3.1 g/dL Critically low 3.5-5.0 [facility] Comment on above: Performed By: #### A MY, CMP, LIPA #### [facility] [address] [place] [address] Jasper Neema Albumin/Globulin [Mass ratio] 0.9 {ratio} Normal [facility] Comment on above: Performed By: #### A MY, CMP, LIPA #### [facility] [address] [place] [address] Jasper Neema ALP [Catalytic activity/Vol] 103 U/L Normal 38-126 [facility] Comment on above: Performed By: #### A MY, CMP, LIPA #### [facility] [address] [place] [address] Jasper Neema ALT [Catalytic activity/Vol] 22 U/L Normal 9-52 [facility] Comment on above: Performed By: #### A MY, CMP, LIPA #### [facility] [address] [place] [address] Jasper Neema Anion gap [Moles/Vol] 9.2 mmol/L Normal [facility] Comment on above: Performed By: #### A MY, CMP, LIPA #### [facility] [address] [place] [address] Jasper Neema AST [Catalytic activity/Vol] 18 U/L Normal 14-36 [facility] Comment on above: Performed By: #### A MY, CMP, LIPA #### [facility] [address] [place] [address] Jasper Neema Bilirubin [Mass/Vol] 0.5 mg/dL Normal 0.2-1.3 [facility] Comment on above: Performed By: #### A MY, CMP, LIPA #### [facility] [address] [place] [address] Jasper Neema Calcium [Mass/Vol] 8.4 mg/dL Normal 8.4-10.2 [facility] Comment on above: Performed By: #### A MY, CMP, LIPA #### [facility] [address] [place] [address] Jasper Neema Chloride [Moles/Vol] 106 mmol/L Normal 98-107 [facility] Comment on above: Performed By: #### A MY, CMP, LIPA #### [facility] [address] [place] [address] Jasper Neema CO2 [Moles/Vol] 31.9 mmol/L Critically high 22.0-30.0 [facility] Comment on above: Performed By: #### A MY, CMP, LIPA #### [facility] [address] [place] [address] Jasper Neema Creatinine [Mass/Vol] 0.80 mg/dL Normal 0.52-1.04 [facility] Comment on above: Performed By: #### A MY, CMP, LIPA #### [facility] [address] [place] [address] Jasper Neema EGFR-AF JAPANESE >60 Normal >=60 [facility] Comment on above: Performed By: #### A MY, CMP, LIPA #### [facility] [address] [place] [address] Jasper Neema EGFR-NON AF JAPANESE >60 Normal >=60 [facility] Comment on above: Performed By: #### A MY, CMP, LIPA #### [facility] [address] [place] [address] Jasper Neema Globulin (S) [Mass/Vol] 3.4 g/dL Normal [facility] Comment on above: Performed By: #### A MY, CMP, LIPA #### [facility] [address] [address] Jasper Neema Glucose [Mass/Vol] 113 mg/dL Critically high 74-106 [facility] Comment on above: Performed By: #### A MY, CMP, LIPA #### [facility] [address] [address] Jasper Neema Potassium [Moles/Vol] 4.1 mmol/L Normal 3.4-5.0 [facility] Comment on above: Performed By: #### A MY, CMP, LIPA #### [facility] [address] [place] [address] Jasper Neema Protein [Mass/Vol] 6.5 g/dL Normal 6.1-8.[address] [facility] Comment on above: Performed By: #### A MY, CMP, LIPA #### [facility] [address] [place] [address] Jasper Neema Sodium [Moles/Vol] 143 mmol/L Normal 137-145 [facility] Comment on above: Performed By: #### A MY, CMP, LIPA #### [facility] [address] [place] [address] Jasper Neema Urea nitrogen [Mass/Vol] 11.0 mg/dL Normal 7.0-17.0 [facility] Comment on above: Performed By: #### A MY, CMP, LIPA #### [facility] [address] [place] [address] Jasper Neema Urea nitrogen/Creatinine [Mass ratio] 13.8 mg/mg Normal [facility] Comment on above: Performed By: #### A MY, CMP, LIPA #### [facility] [address] [place] [address] Jasper Neema AMYLASEon 07-12-2021 Amylase [Catalytic activity/Vol] 46 U/L Normal 31-110 [facility] Comment on above: Performed By: #### A MY #### [facility] [address] [place] [address] Jasper Bethea ASYMPTOMATIC COVID-19 ANTIGE Non 07-12-2021 EUA Statement SEE BELOW Normal [facility] Comment on above: Result Comment: This [...] sooner. Performed By: #### C VDTB #### [facility] [address] [place] [address] Jasper Neema SARS-CoV-2 (COVID-19) RNA UMESH+probe Ql (Unsp spec) Negative Normal NEGATIVE [facility] Comment on above: Result Comment: Nega tive results are presumptive. They do not preclude infection and should not be used as the sole basis for treatment decisions. Additional confirmatory testing by a molecular method should be considered. Performed By: #### C VDTB #### [facility] [address] [place] [address] Jasper Bethea CBC AUTO DIFFon 07-12-2021 BASO # 0.1 103/ul Normal 0.0-0.1 [facility] Comment on above: Performed By: #### C MADIE LAI #### [facility] [address] [place] [address] Neema Basophils/100 WBC (Bld) 0.5 % Normal 0.2-2.0 [facility] Comment on above: Performed By: #### C MADIE LAI #### [facility] [address] [place] [address] Jasper Neema EO # 0.2 103/ul Normal 0.0-0.7 [facility] Comment on above: Performed By: #### C MADIE LAI #### [facility] [address] [place] [address] Jasper Neema Eosinophils/100 WBC (Bld) 1.6 % Normal 0.9-7.0 [facility] Comment on above: Performed By: #### C MADIE LAI #### [facility] [address] [place] [address] Jasper Neema Erythrocyte distribution width (RBC) [Ratio] 12.7 % Normal 11.0-15.0 [facility] Comment on above: Performed By: #### C MADIE LAI #### [facility] [address] [place] [address] Jasper Neema Hematocrit (Bld) [Volume fraction] 45.7 % Normal 36.0-48.0 [facility] Comment on above: Performed By: #### C MADIE LAI #### [facility] [address] [place] [address] Jasper Neema Hemoglobin (Bld) [Mass/Vol] 15.4 g/dL Normal 12.0-16.0 [facility] Comment on above: Performed By: #### C MADIE LAI #### [facility] [address] [place] [address] Jasper Neema IG # 0.03 10e3/ul Normal 0.00-0.03 [facility] Comment on above: Performed By: #### C MADIE LAI #### [facility] [address] [place] [address] Jasper Neema IG % 0.3 % Normal 0.0-0.5 [facility] Comment on above: Performed By: #### C MADIE LAI #### [facility] [address] [place] [address] Jasper Neema LYMPH # 2.0 103/ul Normal 1.2-3.8 [facility] Comment on above: Performed By: #### C MADIE LAI #### [facility] [address] [place], [place] [id number] Jasper Neema Lymphocytes/100 WBC (Bld) 18.0 % Critically low 20.5-60.0 [facility] Comment on above: Performed By: #### C MING LIPA #### [facility] [address] [place], [place] [phone] Jasper Neema MANUAL DIFF REQ NO Normal [facility] Comment on above: Performed By: #### C MING, LIPA #### [facility] [address] [place] [address] Jasper Neema MCH (RBC) [Entitic mass] 27.6 pg Normal 26.7-34.0 [facility] Comment on above: Performed By: #### C MING, LIPA #### [facility] [address] [place] [address] Jasper Neema MCHC (RBC) [Mass/Vol] 33.7 g/dL Normal 29.9-35.2 [facility] Comment on above: Performed By: #### C MING, LIPA #### [facility] [address] [place] [address] Jasper Neema MCV (RBC) [Entitic vol] 82.0 fL Normal 81.0-99.0 [facility] Comment on above: Performed By: #### C MING, LIPA #### [facility] [address] [place] [address] Jasper Neema MONO # 0.7 103/ul Normal 0.3-0.8 [facility] Comment on above: Performed By: #### C MING, LIPA #### [facility] [address] [place] [address] Jasper Neema Monocytes/100 WBC (Bld) 6.4 % Normal 1.7-12.0 [facility] Comment on above: Performed By: #### C MING, LIPA #### [facility] [address] [place] [address] Jasper Neema NEUT # 8.0 103/ul Critically high 1.4-6.5 [facility] Comment on above: Performed By: #### C MP, LIPA #### [facility] [address] [place], [place] [address] Jasper Bethea Neutrophils/100 WBC (Bld) 73.2 % Normal 43.0-75.0 [facility] Comment on above: Performed By: #### C MP, LIPA #### [facility] [address] [place], [place] [address] Jasper Bethea Platelet mean volume (Bld) [Entitic vol] 8.4 fL Critically low 9.5-13.5 [facility] Comment on above: Performed By: #### C MP, LIPA #### [facility] [address] [place] [address] Jasper Neema PLT 287 103/ul Normal 150-450 [facility] Comment on above: Performed By: #### C MP, LIPA #### [facility] [address] [place] [address] Jasper Neema RBC 5.57 106/ul Critically high 4.20-5.40 [facility] Comment on above: Performed By: #### C MP, LIPA #### [facility] [address] [place], [place] [address] Jasper Bethea WBC 10.9 103/ul Normal 4.0-11.0 [facility] Comment on above: Performed By: #### C MP, LIPA #### [facility] [address] [place] [id number] ABD/PELV W CONon 07-12-20 [...] RAMYA IQBAL Date: 2021-07-12 13:00 Normal [facility] Covid-19 PCR (CVDTB)on 06-16 SARS-CoV-2 (COVID-19) RNA UMESH+probe Ql (Unsp spec) Not detected Normal NOT DETECTED [facility] Comment on above: Result Comment: This test is not yet approved or cleared by the [place] FDA. When there are no FDA-approved or cleared tests available, and other criteria are met, FDA can make tests available under an emergency access mechanism called an Emergency Use Authorization (EUA). The EUA for this test is supported by the Staffing Administrator of Health and Human Service's (HHS's) declaration [...] SARS-CoV-2. Performed By: #### C VDTB #### [facility] [address] [place] [address] Jasperjanet Bethea URINE PROFILEon 1 Bilirubin Ql (U) Negative Normal NEGATIVE [facility] Comment on above: Performed By: #### C VDTBH #### [facility] [address] [place] [address] Jasper Neema Clarity (U) CLEAR Normal CLEAR [facility] Comment on above: Performed By: #### C VDTB #### [facility] [address] [place] [address] Jasper Neema Color (U) LT. YELLOW Normal YELLOW [facility] Comment on above: Performed By: #### C VDTB #### [facility] [address] [place] [address] Jasper Neema ERUAHD A micrscopic examination will be performed if indicated. Normal [facility] Comment on above: Performed By: #### C VDTB #### [facility] [address] [place] [address] Jasper Neema Glucose Ql (U) Negative Normal NEGATIVE [place] Comment on above: Performed By: #### C VDTB #### [facility] [address] [place] [address] Jasper Neema Hemoglobin Ql (U) TRACE-INTACT Abnormal NEGATIVE [facility] Comment on above: Performed By: #### C VDTB #### [facility] [address] [place] [address] Jasper Neema Ketones Ql (U) Negative Normal NEGATIVE [place] Comment on above: Performed By: #### C VDTB #### [facility] [address] [place] [address] Jasper Neema LEUKOCYTES MODERATE Abnormal NEGATIVE [facility] Comment on above: Performed By: #### C VDTB #### [facility] [address] [place] [address] Jasper Neema Nitrite Ql (U) Negative Normal NEGATIVE [place] Comment on above: Performed By: #### C VDTBH #### [facility] [address] [place] [address] Jasper Neema pH (U) 7.5 [pH] Normal 5-9 [facility] Comment on above: Performed By: #### C VDTBH #### [facility] [address] [place] [address] Jasper Neema SPEC GRAVITY 1.010 Normal 1.005-<=1.025 [facility] Comment on above: Performed By: #### C VDTBH #### [facility] [address] [place] [address] Jasper Bethea UA PROTEIN Negative Normal NEGATIVE/ TRACE [facility] Comment on above: Performed By: #### C VDTBH #### [facility] [address] [place], [place] [phone] Jasper Bethea UR MICRO IND INDICATED Normal [facility] Comment on above: Performed By: #### C NEETAH #### [facility] [address] [place] [address] Jasper Bethea Urobilinogen Qn (U) 0.2 {Tian'U}/dL Normal 0.2 - 1. 0 [facility] Comment on above: Performed By: #### C STEPHANYTBH #### [facility] [address] [place] [address] Jasper Bethea LACTATE/LACTIC ACIDon 2020 Lactate [Moles/Vol] mmol/L Critically low 0.7-2.0 [facility] Comment on above: Performed By: #### C STEPHANYTBH #### [facility] [address] [place] [address] Jasper Bethea LIPASEon 07-12-2021 Lipase [Catalytic activity/Vol] 1780.0 U/L Critically high 23.0-300.0 [facility] Comment on above: Result Comment: test repeated critical value verified Performed By: #### C MADIE LAI #### [facility] [address] [place] [address] Jasper Fitzgeralden PROF 14(COMP METB)on 021 Albumin [Mass/Vol] 3.5 g/dL Normal 3.5-5.[address] [facility] Comment on above: Performed By: #### C MADIE LAI #### [facility] [address] [place] [address] Jasper Fitzgeralden Albumin/Globulin [Mass ratio] 0.9 {ratio} Normal [facility] Comment on above: Performed By: #### C MP, LIPA #### [facility] [address] [place], [place] [address] Jasper Neema ALP [Catalytic activity/Vol] 120 U/L Normal 38-126 [facility] Comment on above: Performed By: #### C MP, LIPA #### [facility] [address] [place] [phone] Jasper Neema ALT [Catalytic activity/Vol] 20 U/L Normal 9-52 [facility] Comment on above: Performed By: #### C MP, LIPA #### [facility] [address] [place] [phone] Jasper Neema Anion gap [Moles/Vol] 10.3 mmol/L Normal [facility] [place] [facility] Comment on above: Performed By: #### C MP, LIPA #### [facility] [address] [place] [address] Jasper Neema AST [Catalytic activity/Vol] 19 U/L Normal 14-36 [facility] Comment on above: Performed By: #### C MING, LIPA #### [facility] [address] [place] [address] Jasper Neema Bilirubin [Mass/Vol] 0.4 mg/dL Normal 0.2-1.3 [facility] Comment on above: Performed By: #### C MP, LIPA #### [facility] [address] [place] [phone] Jasper Neema Calcium [Mass/Vol] 9.0 mg/dL Normal 8.4-10.2 [facility] Comment on above: Performed By: #### C MP, LIPA #### [facility] [address] [place] [address] Jasper Neema Chloride [Moles/Vol] 101 mmol/L Normal 98-107 [facility] Comment on above: Performed By: #### C MP, LIPA #### [facility] [address] [place] [phone] Jasper Neema CO2 [Moles/Vol] 32.7 mmol/L Critically high 22.0-30.0 [facility] Comment on above: Performed By: #### C MP, LIPA #### [facility] [address] [place] [phone] Jasper Neema Creatinine [Mass/Vol] 0.82 mg/dL Normal 0.52-1.04 [facility] Comment on above: Performed By: #### C MING, LIPA #### [facility] [address] [place] [phone] Jasper Neema EGFR-AF JAPANESE >60 Normal >=60 [facility] Comment on above: Performed By: #### C MING, LIPA #### [facility] [address] [place] [address] Jasper Neema EGFR-NON AF JAPANESE >60 Normal >=60 [facility] Comment on above: Performed By: #### C MING, LIPA #### [facility] [address] [place] [address] Jasper Neema Globulin (S) [Mass/Vol] 3.9 g/dL Normal [facility] Comment on above: Performed By: #### C MING, LIPA #### [facility] [address] [place] [address] Jasper Neema Glucose [Mass/Vol] 140 mg/dL Critically high 74-106 [facility] Comment on above: Performed By: #### C MING, LIPA #### [facility] [address] [place] [address] Jasper Neema Potassium [Moles/Vol] 4.0 mmol/L Normal 3.4-5.0 [facility] Comment on above: Performed By: #### C MING, LIPA #### [facility] [address] [place] [address] Jasper Neema Protein [Mass/Vol] 7.4 g/dL Normal 6.1-8.2 [facility] Comment on above: Performed By: #### C MING, LIPA #### [facility] [address] [place] [address] Jasper Neema Sodium [Moles/Vol] 140 mmol/L Normal 137-145 [facility] Comment on above: Performed By: #### C MING, LIPA #### [facility] [address] [place] [address] Jasperjanet Bethea Urea nitrogen [Mass/Vol] 14.0 mg/dL Normal 7.0-17.0 [facility] Comment on above: Performed By: #### C MADIE LAI #### [facility] [address] [place] [address] Jasper Bethea Urea nitrogen/Creatinine [Mass ratio] 17.1 mg/mg Normal [facility] Comment on above: Performed By: #### C MADIE LAI #### [facility] [address] [place] [address] Jasper Bethea TROPONIN, HIGH SENSITIVITYon 07-12-2021 HSTROP 7.5 pg/mL Normal 4.0-35.5 [facility] Comment on above: Result Comment: CUT- OFF POINTS HAVE BEEN ESTABLISHED BASED ON THE FOURTH UNIVERSAL DEFINITIONS OF MYOCARDIAL INFARCTION. THE UPPER REFERENCE LIMIT (URL) OF TROPONIN, DEFINED THE 99TH PERCENTILE OF cTnI DISTRIBUTION IN A REFERENCE POPULATION, HAS BEEN CONFIRMED THE DECISION THRESHOLD FOR MT DIAGNOSIS. Performed By: #### C VDTB #### [facility] [address] [place] [address] Jasper Neema URINE MICROSCOPIC ONLYon BACTERIA MODERATE Abnormal NONE SEEN [facility] Comment on above: Performed By: #### C VDTB #### [facility] [address] [place] [address] Jasper Neema Bacteria identified Cx Nom (U) INDICATED Normal [facility] Comment on above: Performed By: #### C VDTBH #### [facility] [address] [place] [address] Jasper Neema CAST NONE SEEN Normal NONE SEEN [facility] Comment on above: Performed By: #### C VDTBH #### [facility] [address] [place], [place] [phone] Jasper Neema Crystals LM Nom (Urine sed) NONE SEEN Normal NONE SEEN [facility] Comment on above: Performed By: #### C VDTBH #### [facility] [address] [place] [address] Jasper Neema Epithelial cells LM Ql (Urine sed) MANY Abnormal NONE SEEN /RARE [facility] Comment on above: Performed By: #### C VDTBH #### [facility] [address] [place], [place] [address] Jasper Neema MUCOUS NONE SEEN Normal NONE SEEN [facility] Comment on above: Performed By: #### C VDTBH #### [facility] [address] [place], [place] [address] Jasper Neema RBC 2-5 Abnormal 0-2 [facility] Comment on above: Performed By: #### C VDTBH #### [facility] [address] [place], [place] [address] Jasper Neema WBC 50-75 Abnormal NONE SEEN [facility] Comment on above: Performed By: #### C VDTBH #### [facility] [address] [place], [place] [address] Jasperjanet Fitzgeralden Vital Signs Date Time Vital Sign Value Performing Clinician Facility 08-08-2024 13:55-0400 Body height 152.4 cm [facility] 08-08-2024 13:55-0400 Body mass index (BMI) [Ratio] 34.9 kg/m2 [facility] 08-08-2024 13:55-0400 Body weight 81.19 kg [facility] 08-08-2024 13:55-0400 Diastolic blood pressure 83 mm[Hg] [facility] 08-08-2024 13:55-0400 Heart rate 84 /min [facility] 08-08-2024 13:55-0400 Systolic blood pressure 154 mm[Hg] [facility] 03-23-2024 08:29-0400 Body height 154.9 cm Rosita CLEMONS Work Phone: [facility] 03-23-2024 08:29-0400 Body mass index (BMI) [Ratio] 33.82 kg/m2 Rosita CLEMONS Work Phone: [facility] 03-23-2024 08:29-0400 Body weight 81.19 kg Rosita CLEMONS Work Phone: [facility] 03-23-2024 08:29-0400 Diastolic blood pressure 92 mm[Hg] [facility] Comment on above: manual 03-23-2024 08:29-0400 Heart rate 93 /min [facility]berg [facility] 03-23-2024 08:29-0400 Respiratory rate 18 /min [facility]ienberg [facility] 03-23-2024 08:29-0400 SaO2% (BldA) [Mass fraction] 100 % [facility] 03-23-2024 08:29-0400 Systolic blood pressure 172 mm[Hg] Ros[facility]ienberg [facility] Comment on above: manual 02-17-2024 10:51-0400 Body height 154.9 cm Ros[facility]ienberg [facility] 02-17-2024 10:51-0400 Body mass index (BMI) [Ratio] 34.2 kg/m2 Rosita Nienberg PA [facility] 02-17-2024 10:51-0400 Body weight 82.1 kg Ros[facility]ienberg [facility] 02-17-2024 10:51-0400 Diastolic blood pressure 82 mm[Hg] Ros[facility]ienberg PA [facility] 02-17-2024 10:51-0400 Heart rate 93 /min Ros[facility] Nienberg PA [facility] 02-17-2024 10:51-0400 Respiratory rate 16 /min Ros[facility]ienberg [facility] 02-17-2024 10:51-0400 SaO2% (BldA) [Mass fraction] 93 % [facility]ienberg PA [facility] 02-17-2024 10:51-0400 Systolic blood pressure 180 mm[Hg] Rosita CLEMONS Work Phone: [employer] 08-16-2023 10:45-0400 Body height 152.4 cm Cheyanne Gallardo Other [employer] Other 08-16-2023 10:45-0400 Body mass index (BMI) [Ratio] 34.76 kg/m2 Cheyanne Gallardo Other [employer] Other 08-16-2023 10:45-0400 Body weight 80.74 kg Cheyanne Gallardo Other [employer] Other 08-16-2023 10:45-0400 Diastolic blood pressure 82 mm[Hg] Cheyanne Gallardo Other [employer] Other 08-16-2023 10:45-0400 Systolic blood pressure 152 mm[Hg] Cheyanne Gallardo Other [employer] Other 04-27-2023 10:45-0400 Body height 152.4 cm Cheyanne Gallardo Other [employer] Other 04-27-2023 10:45-0400 Body mass index (BMI) [Ratio] 34.76 kg/m2 Cheyanne Gallardo Other [employer] Other 04-27-2023 10:45-0400 Body weight 80.74 kg Cheyanne Gallardo Other [employer] Other 04-27-2023 10:45-0400 Diastolic blood pressure 80 mm[Hg] Cheyanne Gallardo Other [employer] Other 04-27-2023 10:45-0400 Systolic blood pressure 154 mm[Hg] Cheyanne Gallardo Other [employer] Other 03-28-2023 11:17-0400 Heart rate 98 /min MD Cheyanne Gallardo Work Phone: [facility] 03-28-2023 11:17-0400 Respiratory rate 20 /min MD Cheyanne Gallardo Work Phone: [facility] 03-28-2023 11:17-0400 SaO2% (BldA) [Mass fraction] 97 % MD Cheyanne Gallardo Work Phone: [facility] 03-28-2023 11:10-0400 Diastolic blood pressure 60 mm[Hg] MD Cheyanne Gallardo Work Phone: [facility] 03-28-2023 11:10-0400 Systolic blood pressure 159 mm[Hg] MD Cheyanne Gallardo Work Phone: [facility] 03-28-2023 09:56-0400 Body height 154.94 cm MD Cheyanne Gallardo Work Phone: [facility] 03-28-2023 09:56-0400 Body temperature 97 [degF] MD Cheyanne Gallardo Work Phone: [facility] 03-28-2023 09:56-0400 Body weight 81.6 kg MD Cheyanne Gallardo Work Phone: [facility] 10-26-2022 15:00-0500 Body height 154.94 cm Amanda Blades Other [facility] Other 10-26-2022 15:00-0500 Body mass index (BMI) [Ratio] 33.44 kg/m2 Amanda Blades Other [facility] Other 10-26-2022 15:00-0500 Body weight 80.29 kg Amanda Blades Other [facility] Other 10-10-2022 10:17-0500 Body height 154.94 cm MD Lindy Rodriguez Work Phone: [facility] 10-10-2022 10:17-0500 Body weight 79.7 kg MD Lindy Rodriguez Work Phone: [facility] 10-10-2022 10:13-0500 Body temperature 98.5 [degF] MD Lindy Rodriguez Work Phone: [facility] 10-10-2022 10:13-0500 Diastolic blood pressure 98 mm[Hg] MD Lindy Rodriguez Work Phone: [facility] 10-10-2022 10:13-0500 Heart rate 73 /min MD Lindy Rodriguez Work Phone: [facility] 10-10-2022 10:13-0500 Respiratory rate 20 /min MD Lindy Rodriguez Work Phone: [facility] 10-10-2022 10:13-0500 SaO2% (BldA) [Mass fraction] 93 % MD Lindy Rodriguez Work Phone: [facility] 10-10-2022 10:13-0500 Systolic blood pressure 152 mm[Hg] MD Lindy Rodriguez Work Phone: [facility] Encounters Encounter Date Encounter Type Care Provider Facility Start: 12-07-2024 End: 12-07-2024 ambulatory [facility] Work Phone: Start: 12-07-2024 End: 12-07-2024 Patient encounter procedure [facility] Work Phone: Start: 08-17-2024 End: 08-17-2024 ambulatory [facility] Work Phone: Start: 08-17-2024 End: 08-17-2024 Patient encounter procedure [facility] Work Phone: Start: 08-09-2024 Non-patient / Non-visit [facility] Work Phone: Start: 08-08-2024 End: 08-08-2024 ambulatory [facility] Work Phone: Start: 08-08-2024 End: 08-08-2024 Patient encounter procedure [facility] Work Phone: Start: 03-23-2024 End: 03-23-2024 ambulatory ROSITA S [facility] Start: 03-23-2024 End: 03-23-2024 Office outpatient visit 15 minutes Rosita Castillo PA Work Phone: [facility] Comment on above: Cervical spondylosis without myelopathy (Primary Dx) Start: 03-04-2024 End: 03-04-2024 ambulatory DAIANA ROBLESKris [facility] Start: 03-03-2024 End: 03-04-2024 ambulatory CORRINE Carrion [facility] Start: 02-17-2024 End: 02-17-2024 ambulatory ROSITA S [facility] Start: 02-17-2024 End: 02-17-2024 Office outpatient visit 15 minutes Rosita Castillo PA Work Phone: [facility] Comment on above: Cervical spondylosis without myelopathy (Primary Dx) Start: 09-08-2023 End: 09-08-2023 ambulatory Thomas Calles Other [employer] Other Start: 09-08-2023 Telephone encounter Thomas RAMIREZ G [employer] Start: 08-30-2023 End: 08-30-2023 ambulatory Cheyanne Gallardo Other [employer] Other Start: 08-30-2023 Telephone encounter Cheyanne Gallardo [facility] Start: 08-23-2023 End: 08-23-2023 ambulatory Cheyanne Gallardo Other [employer] Other Start: 08-23-2023 Telephone encounter Cheyanne Gallardo [facility] Start: 08-17-2023 End: 08-17-2023 ambulatory Cheyanne Gallardo Other [employer] Other Start: 08-17-2023 Telephone encounter Cheyanne Gallardo [facility] Start: 08-16-2023 End: 08-16-2023 ambulatory Cheyanne Gallardo Other [employer] Other Start: 08-16-2023 Office outpatient vi sit 25 minutes Cheyanne Gallardo [facility] Start: 05-14-2023 End: 05-14-2023 ambulatory Cheyanne Gallardo Other [employer] Other Start: 05-14-2023 Telephone encounter Cheyanne Gallardo [facility] Start: 04-27-2023 End: 04-27-2023 ambulatory Cheyanne Gallardo Other [employer] Other Start: 04-27-2023 Office outpatient vi sit 15 minutes Cheyanne Gallardo [facility] Start: 03-28-2023 End: 03-28-2023 Emergency department patient visit Shawn Camarillo Facility:[facility] Start: 03-28-2023 End: 03-28-2023 Emergency department patient visit MD Cheyanne Gallardo Work Phone: [facility] Work Phone: Start: 01-11-2023 End: 01-11-2023 ambulatory KACI PATIÑO . Facility:H1 Start: 10-26-2022 End: 10-26-2022 ambulatory Amanda Srinivasan Other [facility] Other Start: 10-26-2022 Office outpatient ne w 45 minutes Amanda Bladeranjit [facility] Neurosurgery Start: 10-16-2022 End: 10-17-[address] CHEYANNE GALLARDO Facility:[facility]1 Start: 10-10-2022 End: 10-10-2022 Emergency department patient visit Lindy Rodriguez Facility:[facility] Start: 10-10-2022 End: 10-10-2022 Emergency department patient visit MD Lindy Rodriguez Work Phone: [facility] Start: 10-01-2022 End: 10-01-[address] CRISTIANE SIMPSON Facility:[facility]1 Start: 09-15-2022 End: 09-15-[address] CHEYANNE GALLARDO Facility:[facility]1 Start: 09-15-[address] CHEYANNE GALLARDO Facil ity:H1 Start: 09-09-2022 End: 09-10-[address] CHEYANNE GALLARDO Facility:[facility]1 Start: 05-08-2022 End: 05-09-[address] CHEYANNE GALLARDO Facility:[facility]1 Start: 04-09-[address] CHEYANNE GALLARDO Facil ity:H1 Start: 07-12-2021 End: 07-14-[address] MAUREEN OMRTENSEN Facility:H1 Procedures Date Procedure Procedure Detail Performing Clinician Start: 03-28-2023 Respiratory Panel (PCR) MD Cheyanne Gallardo Work Phone: Start: 03-28-2023 Plain chest X-ray MD Tigist Gallardo Work Phone: Start: 10-10-2022 CT cervical spine wi thout contrast MD Lindy Rodriguez Work Phone: Start: 10-13-2017 Screening mammography Antony Gallardo Other Viral screening Cheyanne Gallardo Other Plan of Treatment Date Care Activity Detail Author Start: 03-23-2025 Adult BMI Screening Adult BMI Screen ing [facility] Start: 03-23-2025 Tobacco Screening Tobacco Screening [facility] Start: 02-16-2025 Adult BMI Screening Adult BMI Screen ing [facility] Start: 02-16-2025 Tobacco Screening Tobacco Screening [facility] Start: 07-16-2024 Influenza vaccination Influenza Vacc ine [facility] Start: 05-04-2024 End: 05-04-2024 Patient encounter procedure 05/04/2024 1:30 PM EDT Office Visit [facility] [address] [place] [address] Rosita Castillo PA [address] [place] [address] [facility] Start: 03-23-2024 End: 03-23-2024 Patient encounter procedure 03/23/2024 8:45 AM EDT Office Visit [facility] [address] [place] [id number] Rosita Castillo PA [address], [address] [place] [address] [facility] Start: 03-03-2024 End: 03-03-2024 Admission to same day surgery center 03/03/2024 12:39 PM EDT - 03/03/2024 12:45 PM EDT Surgery [facility] [address] [place] [id number] Corrine Koroma MD [address] [facility] [id number] INJECTION BLOCK NERVE MEDIAL BRANCH: bilat C23 34 [32148 (CPT )] [facility] Comment on above: INJECTION BLOCK NERV E MEDIAL BRANCH: bilat C23 34 [65994 (CPT )] Start: 03-03-2024 End: 03-03-2024 Njx dx/ther agt pvrt facet jt crv/thrc 1 level INJECTION BLOCK NERVE MEDIAL BRANCH Cervical spondylosis without myelopathy 03/03/2024 12:39 PM EDT [facility] Start: 03-03-2024 Subsequent hospital visit by physician 03/03/2024 12:39 PM EDT Hospital Encounter [facility] [address] [place] [id number] Corrine Koroma MD [address] [place], [place] [id number] [facility] Start: 07-16-2023 COVID-19 Vaccine ( season) COVID-19 Vaccine ( season) [facility] [employer] Start: 2009 Fall Risk Screening Fall Risk Screen ing [facility] Start: 1994 Administration of varicella zoster vaccine Zoster (Shingles) Vaccine (1 of 2) [facility] Start: 1963 DTaP,Tdap and Td Vac cines (1 - Tdap) DTaP,Tdap and Td Vaccines (1 - Tdap) [facility] Start: 1962 Adult BMI Follow Up Plan Adult BMI Follow Up Plan [facility] Start: 1956 Depression Screening Depression Scre ening [facility] Start: 1944 Medicare Annual Well ness Visit Medicare Annual Wellness Visit [facility] Start: 1944 Tobacco Counseling Tobacco Counselin g [facility] Comprehensive metabo lic 2000 panel - Serum or Plasma [facility] Patient Education [facility] Work Phone: Patient referral [facility] Work Phone: [facility] Immunizations Immunization Date Immunization Notes Care Provider Fa cility 08-17-2024 influenza, high dose seasonal, preservative-free [facility] 08-03-2023 influenza virus vaccine, unspecified formulation [facility] 08-03-2023 influenza, high dose seasonal, preservative-free Cheyanne Gallardo Other [facility] Other 08-05-2022 influenza virus vaccine, split virus (incl. purified surface antigen) Cheyanne Gallardo Other [facility] Other 08-05-2022 influenza virus vaccine, unspecified formulation Rosita CLEMONS Work Phone: [facility] 08-13-2021 influenza virus vaccine, split virus (incl. purified surface antigen) Cheyanne Gallardo Other [facility] Other 08-13-2021 influenza virus vaccine, unspecified formulation [facility] 07-31-2020 influenza virus vaccine, split virus (incl. purified surface antigen) Cheyanne Sami Other [facility] Other 07-31-2020 influenza virus vaccine, unspecified formulation [facility] 09-05-2018 influenza virus vaccine, split virus (incl. purified surface antigen) Cheyanne Sami Other [facility] [employer] [employer] Other 09-05-2018 influenza virus vaccine, unspecified formulation [facility] Payers Date Payer Category Payer Medicare MEDICARE MEDICAR E PART A & B [id number] 2009-Present [phone] [address] [place] [address] [id number] 2009 Unknown ANTHEM BCBS OUT OF STATE TRADITIONAL [id number] 2009-Present [phone] [address] [place] [address] [id number] 1959 Medicare [id number] 1959 Self-pay 1959 Unknown [id number] 1959 Unknown [id number] 1959 Unknown [id number] [id number] 1944 Unknown [id number] 2.16.840.1.001430.3.579.2.5 93 1944 Unknown [id number] 2.16.840.1.167398.3.579.2.5 93 1944 Unknown [id number] 2.16.840.1.399558.3.579.2.5 93 1944 Unknown [id number] 2.16.840.1.606345.3.579.2.5 93 1944 Unknown [id number] 2.16.840.1.956267.3.579.2.5 93 1944 Unknown [id number] 2.16.840.1.696899.3.579.2.5 93 1944 Unknown [id number] 2.16.840.1.844498.3.579.2.5 93 1944 Unknown [id number] 2.16.840.1.478263.3.579.2.5 93 1944 Unknown [id number] 2.16.840.1.963913.3.579.2.5 93 1944 Unknown [id number] 2.16.840.1.718241.3.579.2.1 286 1944 Unknown [id number] 2.16.840.1.576728.3.579.2.1 286 1944 Unknown [id number] 2.16.840.1.189250.3.579.2.1 286 1944 Unknown [id number] 2.16.840.1.734641.3.579.2.1 286 1944 Unknown [id number] 2.16.840.1.618933.3.579.2.1 286 1944 Unknown [id number] 2.16.840.1.082300.3.579.2.1 286 Medicare Cigna Medicare Supplemental [id number] Unknown [id number] Unknown [id number] 2.16.840.1.184743.3.579.2.5 31 Unknown [id number] 2.16.840.1.163682.3.579.2.5 31 Unknown [id number] Social History Date Type Detail Facility Start: 10-10-2022 Tobacco smoking stat us NHIS Ex-smoker (finding) [facility] Start: 1945 Sex Assigned At Female [facility] Start: 12-26-2020 End: 03-23-2024 Sex Assigned At [facility] [employer] Other Start: 03-28-2023 End: 03-28-2023 Tobacco smoking status NHIS Smoker (finding) [facility] Start: 12-07-2024 Sex Female (finding) [facility] Start: 02-17-2024 End: 03-23-2024 Tobacco smoking status WAIS Smokes tobacco daily [facility] History of tobacco use Cigarette Smoker [facility] Start: 02-17-2024 End: 03-23-2024 Tobacco use and exposure Smokeless tobacco non-user [facility] Start: 02-17-2024 End: 03-23-2024 Alcoholic beverage intake Lifetime non-drinker (finding) [facility] Start: 12-26-2020 End: 03-23-2024 History of Social function [facility] Childcare Unknown [facility] Start: 1945 Sex assigned at Not on file [facility] Clinical Notes 05-08-2022 to 12-07-2024 Note Date & Type Note Facility 12-07-2024 Evaluation note Diagnosis Onset Date Resolution Bronchitis acute December 07, 2024 9:16am [facility] Work Phone: 1(419) 648-273305-09-2024 History of Present illness Narrative* KACI Becerra - 03/23/2024 8:45 AM EDT [facility] [address] [place] [id number] Patient: Nya Jiang Sex: female : 1945 Age: 78 y.o. PCP: CHEYANNE GALLARDO MD 03/23/2024 Nya Jiang is here for a(n) post procedure follow up 03/03/24 Bilateral C2/3, 3/4 Medial branch block with 100% relief . . Date of onset of pain: 08/2022 , pain has lasted greater than 3 months. Pain scale before treatment: 10/10 Pre-op pain score: 10/10 Post-op pain score: 0/10 2 hour post-op pain score: 0/10 4 hour post-op pain score: 0/10 Percentage of relief after and duration: see above Pain scale after treatment: 0/10 today Chief Complaint Patient presents with Neck Pain HPI: 03/12/2023 Bilateral C2/3, 3/4 Medial branch block with 80-90% relief for 7-8 months pre-proc pain was 9/10 post proc pain was 1-2/10 03/03/24 Bilateral C2/3, 3/4 Medial branch block with 100% relief pre-proc pain 10/10 post op 0/10 today 0/10 Neck Pain This is a chronic problem. [...] and biofreeze with some relief. PT at [facility] (Dec 2022), HEP from PT currently. The treatment provided mild relief. The effect of pain on patient's ADLS: Minimal Impairment. Past Medical History: Diagnosis Date Chronic pain disorder GERD (gastroesophageal reflux disease) Hyperlipidemia Hypertension Joint pain Past Surgical History: Procedure Laterality Date HERNIA REPAIR HYSTERECTOMY INJECTION BLOCK NERVE MEDIAL BRANCH: jovany Wallis 2/3 3/4 Bilateral 03/12/2023 Performed by Corrine Koroma MD at [facility] INJECTION BLOCK NERVE MEDIAL BRANCH: bilat C 2/3, 3/4 Bilateral 03/03/2024 Performed by Corrine Koroma MD at [facility] NECK SURGERY 2012 Allergies Allergen Reactions Nylon Rash Penicillins Rash Family History Problem Relation Age of Onset Cancer Mother COPD Father Cancer Father Social History Socioeconomic History Marital status: Spouse name: Not on file Number of children: Not on file Years of education: Not on file Highest education level: Not on file Occupational History Not on file Tobacco Use Smoking status: Every Day Current packs/day: 0.50 Types: Cigarettes Smokeless tobacco: Never Vaping Use Vaping status: Never Used Substance and Sexual Activity Alcohol use: Never Drug use: Never Sexual activity: Defer Other Topics Concern Not on file Social History Narrative Not on file Social Determinants of Health Financial Resource Strain: Not on file Food Insecurity: No Food Insecurity (03/23/2024) Hunger Screening Food Insecurity - Worry: Never True Food Insecurity - Inability: Never True Transportation Needs: Not on file Physical Activity: Not on file Stress: Not on file Social Connections: Not on file Interpersonal Safety: Unknown (01/06/2024) [facility] [place] Safety & Environment Fear of Current or Ex-Partner: Not on file Emotionally Abused: Not on file Physically Abused: Not on file Sexually Abused: Not on file Physically or Sexually Abused: Not on file Housing Instability: Not on file Review of Systems Constitutional: Negative. Negative for chills, fatigue and fever. HENT: Negative. Eyes: Negative. Negative for photophobia. Respiratory: Negative. Negative for cough and shortness of breath. Smokers Cardiovascular: Negative. Negative for chest pain. Gastrointestinal: Positive for constipation (chronic). Genitourinary: Negative. Negative for difficulty urinating. Musculoskeletal: Positive for neck pain. Negative for neck stiffness. Skin: Negative. Negative for rash and wound. Neurological: Positive for headaches. Negative for tingling, weakness and numbness. Hematological: Negative. Psychiatric/Behavioral: Negative. Negative for self-injury and suicidal ideas. Vital Signs: BP (!) 172/92 Comment: manual Pulse 93 Resp 18 Ht 154.9 cm (5' 1 ) Wt 81.2 kg (179 lb) SpO2 100% BMI 33.82 kg/m Physical Exam: GENERAL - Healthy patient [...] during discussion, demonstrated appropriate cognitive reasoning and understandingof the medical condition by asking appropriate questions regarding the diagnosis and risks/benefits/alternatives of treatment modalities. No obvious deficits in memory, reasoning, or intellect. Cervical: SKIN - No rashes or bruising in the area of the patient s pain. LYMPH NODES - demonstrate no obvious enlargement. EXTREMITIES - Upper extremities are warm, with minimal edema and palpable pulses. No Significant tenderness to palpation noted in the cervical spine and paraspinal musculature. Minimal pain is elicited with flexion, extension, and lateral rotation of the cervical spine. Range of motion is not diminished with these motions. Facet palpation is noted to be minimally painful, but not concordant with the patient s normal pain [...] for this visit: Cervical spondylosis without myelopathy Monitor Follow up 4-6 weeks The medications prescribed have been reviewed for [...] monitoring for toxicity We do not currently prescribeany controlled substance from this practice. Treatment plans discussed but not opted for at this time: Cervical RFA. Pain is under adequate control. It does appear that the patient benefited from the previous injection and the benefit has continuedthrough this visit. At this time, we will monitor the patient s symptoms from an interventional standpoint and consider another injection in the future if the patient s symptoms return or intensify severely. The patient was made aware that they should call if symptoms worsen or if their pain beginsto have a negative impact on their quality of life and activities of daily living again. The spine model was demonstrated and MRI was reviewed and used to explain the condition. OARRS: Reviewed. Scribe Statement: Scribed for and in the presence of KACI BECERRA by Soila Callahan CNA. Provider Statement: I, KACI BECERRA, personally performed the services described in the documentation, as scribed by Soila Callahan CNA in my presence, and it is both accurate and complete. Soila Callahan CNA 03/23/24 1047 KACI Becerra 03/23/24 1205 documented in this encounterSpringfield HospitalHome Delivery Service (HDS) [id number] History of Present illness Narrative* KACI Becerra - 02/17/2024 10:45 AM EDT [facility] [address] [place] [address] Patient: Nya Jiang Sex: female : 1945 [...] and biofreeze with some relief. PT at [facility] (Dec 2022), HEP from PT currently. The treatment provided mild relief. The effect of pain on patient's ADLS: Mild Impairment. Past Medical History: Diagnosis Date Chronic pain disorder GERD (gastroesophageal reflux disease) Hyperlipidemia Hypertension Joint pain Past Surgical History: Procedure Laterality Date HERNIA REPAIR HYSTERECTOMY INJECTION BLOCK NERVE MEDIAL BRANCH: bilat C 12/18 01/16 Bilateral 03/12/2023 Performed by Corrine Koroma MD at [facility] NECK SURGERY 2011 Allergies Allergen Reactions Nylon Rash Penicillins Rash [...] during discussion, demonstrated appropriate cognitive reasoning and understandingof the medical condition by asking appropriate questions [...] procedure was described in detail to the patientas well as the potential benefits of pain [...] blocks should provide information to confirm that thenoted facet arthropathy is the patient s most [...] monitoring for toxicity We do not currently prescribeany controlled substance from this practice. Treatment plans [...] of the same nature in that the samesymptoms have returned. It is hopeful that this [...] KACI Becerra 02/17/24 1327 documented in this encounterSpringfield HospitalHome Delivery Service (HDS) [id number] Instructions* Patient Instructions* Soila Callahan CNA - 02/17/2024 10:45 AM [...] take you to the nearest emergency room. Tellthe emergency room staff that you recently had a spine injection. A doctor must evaluate you for bleeding and injection complications. If you lose control over bowel, bladder, or legs: Go to the nearest emergency room. [facility] Evaluation note* Encounter Date Diagnosis Assessment Notes Treatment Notes Treatment Clinical Notes Aug, Epigastric pain (ICD-10 - R10.13) Aug, Bloating (ICD-10 - R14.0) Aug, Nausea (ICD-10 - R11.0) [facility] Other 10-09-2023 Evaluation note* Encounter Date Diagnosis Assessment Notes Treatment Notes Treatment Clinical Notes Aug, Epigastric pain (ICD-10 - R10.13) Aug, Right upper quadrant abdominal pain (ICD-10 - R10.11) [facility] Other 10-03-2023 Evaluation note* Encounter Date Diagnosis Assessment Notes Treatment Notes Treatment Clinical Notes Aug, Abnormal urinalysis (ICD-10 - R82.90) [facility] Other 10-02-2023 Evaluation note* Encounter Date Diagnosis [...] (ICD-10 - R30.0) Assess for possible UTI [facility] Other 06-13-2023 Evaluation note* Encounter Date Diagnosis Assessment Notes Treatment Notes Treatment Clinical Notes Apr, Chronic fatigue (ICD-10 - R53.82) Pt agrees to labs to f/o metabolic causes. Discussed stress relief, family support and help with husbands medical problems. [facility] Other 12-12-2022 Evaluation note* Encounter Date Diagnosis Assessment Notes Treatment Notes Treatment Clinical Notes Oct, Neck pain (ICD-10 - M54.2) [facility] Other 10-27-2022 NotePROCEDURE: XR TOES LT MIN [...] Electronically authenticated by: RAMYA IQBAL Date: 2022-09-10 06:16[facility]06-24-2022 NotePROCEDURE: XR WRIST LT MIN 3 V [...] Electronically authenticated by: RAMYA IQBAL Date: 2022-05-08 13:14[facility] noteNo assessment information availableKettering Memorial Hospital Work Phone: Evaluation noteNo InformationNortSelect Specialty Hospital - [facility] [employer] Other Evaluation note* Diagnosis Onset Date Resolution Status Anemia acute Essential (primary) hypertension acute Fatigue acute [facility] Work Phone: Evaluation note* Diagnosis Cervical spondylosis without myelopathy- Primary documented in this encounter [facility] SystemEvaluation note* Diagnosis Cervical spondylosis without myelopathy- Primary Cervical spondylosis without myelopathy- Primary Cervical spondylosis without myelopathy documented in this encounter ProMbryce hospitalGrocery Shopping Network SystemHistory general Narrative - Reported* Type Description Date Medical History DEPRESSION Medical History HTN Medical History HYPERLIPEMIA Medical History COPD Surgical History BREAST REDUCTION Surgical History HERNIA REPAIR X2 Surgical History HYSTERECTOMY Surgical History NECK SURGERY [facility] [employer] Other History general Narrative - Reported* Type [...] NECK SURGERY Hospitalization History SEE SURGICAL HX [facility] [employer] Other Hospital Discharge instructions Additional Instructions Follow-up with neurosurgeon and or primary care doctor.[facility] Work Phone: Hospital Discharge instructions Additional Instructions Follow-up with your primary care doctor Return to ED if develop worsening symptoms or concernsSub[facility] Work Phone: InstructionsNot on filedocumented in this encounter [employer] Summary Purpose Family History Relationship Condition Age [...] for Visit Anemia Essential (primary) hypertension Fatigue Chief Complaint not feeling well, fe eling run down flu shot Reason for Visit Anemia Essential (primary) hypertension Fatigue Chief Complaint Admit Date VIRTUAL:Cough December 07, 2024 9 :16am Reason for Visit Admit Date Bronchitis December 07, 2024 9 :16am Reason for Referral Specialty Diagnoses / Procedures Referred By Florentin bright Referred To Contact Diagnoses Cervical spondylosis without myelopathy Procedures Case request operating room: INJECTION BLOCK NERVE MEDIAL BRANCH: bilat C23 34 Rosita Castillo PA [address] [place] [address] Referral ID Status Reason Start Date Expiration Date V isits Requested Visits Authorized [id number] Pending Review 02/17/2024 02/16/2025 1 1 Reason *Waiting for appt Last OV, CT and lab results. Diagnosis 1 Epigastric pain (R10 .13) Referral Organization [facility] linprimitivo Referring Provider First Name Cheyanne Referring Provider Last Name Sami Referring Provider Specialty Family [facility] cine Referred Organization [facility] Gastroenterolo gy Referred Provider Loan Sebastian Referred Address [address] [place] [id number] Referred Provider Specialty Gastroentero logy Referral Priority Routine General Notes Cheryl Fontanez 03:03:56 PM >received today, attachments made, sent P2P Additional Source Comments INFORMATION SOURCE (unrecogn ized section and content) DATE CREATED AUTHOR 08/01/2021 [facility] DATE CREATED AUTHOR AUTHOR'S ORGANIZ ATION 03/24/2023 [facility] DATE CREATED AUTHOR AUTHOR'S ORGANIZ ATION 03/29/2023 [facility] DATE CREATED AUTHOR AUTHOR'S ORGANIZ ATION 03/25/2024 [facility] Care Teams (unrecognized sec tion and [...] Active Shawn Camarillo DO Emergency Provider Active Team Status: Inactive Member Role Status Dates Cheyanne Gallardo MD Primary Care Provide r, Attending Provider Active Start: August 08, 2024 End: August 08, 2024 Team Status: Active Member Role Status Dates Cheyanne Gallardo MD Primary Care Provide r, Attending Provider Active Start: August 09, 2024 Team Status: Inactive Member Role Status Dates Cheyanne Gallardo MD Primary Care Provider Active Start: August 17, 2024 End: August 17, 2024 Jordon Caldwell DO Attending Provider Active Sta rt: August 17, 2024 End: August 17, 2024 Team Status: Inactive Member Role Status Dates Cheyanne Gallardo MD Primary Care Provide r, Attending Provider Active Start: December 07, 2024 End: December 07, 2024 B[employer]iologist Pharm[employer] Relationship Specialty Start Date End Date Cheyanne Gallardo MD [address] [place] [address] PCP - General Family Medicine 10/25/19 Bacteriologist Pharmaceutical Relationship Specialty Start Date End Date Cheyanne Gallardo MD [address] [id number] PCP - General Family Medicine 10/25/19 Goals (unrecognized section and content) Goals may be documented in a n alternate sectionNo InformationGoals may be documented in an alternate sectionNo InformationNo InformationNo InformationNo InformationNo InformationNo InformationNo InformationGoals may be documented in an alternate sectionGoals may be documented in an alternate sectionGoals may be documented in an alternate sectionNot on filedocumented as of this encounterNot on filedocumented as of this encounter REASON FOR VISIT (unrecogniz ed section and content) Reason Comments Neck Pain Reason Comments Neck Pain FOR RECORDS PERTAINING [...] BE BASED ON THE PRIMARY CLINICAL RECORDS. [facility] [employer] [facility]. provides no warranty or guarantee of the accuracy or completeness of information in this document.
[2025-01-19 14:33] LABS: Alanine Aminotransferase 17 U/L (14-59); Albumin Globulin Ratio 0.9; Albumin Level 3.4 g/dL (3.4-5.0); Alkaline Phosphatase 116 U/L (46-116); Anion Gap 7.4; Aspartate Amino Transferase 17 U/L (15-37); BUN Creatinine Ratio 15.4; Bilirubin Direct 0.1 mg/dL (0.0-0.2); Bilirubin Total 0.4 mg/dL (0.2-1.0); Carbon Dioxide 33.8 mmol/L (21.0-32.0); Chloride 103 mmol/L (98-107); Estimated GFR (African America >60 (>=60 mL/min/1.73m^2); Estimated GFR (Non-African Ame >60 (>=60 mL/min/1.73m^2); Globulin 3.8 g/dL; Glucose 127 mg/dL (74-106); Potassium 4.2 mmol/L (3.5-5.1); Sodium 140 mmol/L (136-145); Total Protein 7.2 g/dL (6.4-8.2)
== END 2025-01-19 16:41 | disposition home or self-care (01) ==
PROVIDERS: Emergency Provider Emergency Medicine; PCP Family Medicine
DX: K59.00 Constipation, unspecified (principal); R10.30 Lower abdominal pain, unspecified; F17.200 Nicotine dependence, unspecified, uncomplicated
CPT/HCPCS: 36415; 74176; 80048; 80076; 83605; 83690; 85025; 96374; 96375; 99285; J1171; J2405

== ENCOUNTER 2025-01-20 14:25 | Emergency (ER) | payer MEDICARE, BC, SELFPAY ==
[2025-01-20 14:41] VITALS: BP 170/87; PULSE 83; TEMP 36.8; O2SAT 92; BMI 34.0
--- OUTSIDE RECORDS SUMMARY | 2025-01-20 15:28 | XMS_ITS | CCD ---
Author Organization [facility] Care Team Providers Care Wire Spinner Name Role Phone BALBINA, DR REDDY Attending Unavailable BALBINA, DR REDDY Consulting Unavailable BALBINA, DR REDDY Admitting Unavailable ZIVICER, DR RAMYA Bernal Consulting Unavailable PAY, DR FAJARDO Consulting Unavailable MD Lindy Rodriguez Primary Care Provider MARICARMEN Rolle Emergency Provider [phone] Amanda Srinivasan Unavailable SAMI, DR CHEYANNE Carrion Primary Care Unavailable ZIEBER, DR RAMYA Bernal Consulting Unavailable GALLARDO, DR CHEYANNE Carrion Admitting Unavailable GALLARDO, DR CHEYANNE Carrion Attending Unavailable GALLARDO, DR CHEYANNE Carrion Consulting Unavailable GALLARDO, DR CHEYANNE Carrino Attending Unavailable ZIEBER, DR RAMYA Bernal Consulting [...] Carrion Primary Care Unavailable GALLARDO, DR CHEYANNE Carrino Admitting Unavailable GALLARDO, DR CHEYANNE Carrion Consulting [...] Care Provider DO Shawn Camarillo Emergency Provider Shawn Camarillo Admitting Unavailable Shawn Camarillo Attending [...] Unavailable Cheyanne Gallardo MD Primary Care Provider [phone] Allergies Allergy Classification Reported Allergen(s) Allergy Type Date of Onset Reaction(s) Facility (3 sources) Ciprofloxacin Drug Allergy 07-12-20 21 [facility] Repository (8 sources) Penicillins; Translations: [PENICILLINS] Drug allergy (disorder) 03-25-20 21 Rash [facility] Repository (2 sources) Nylon 12 Drug allergy (disorder) [facility] Repository (16 sources) nylon; Translations: [nylon] Allergy to substance 10-10-20 22 Swelling, Rash [facility] (11 sources) Penicillin G Benzathine Drug allergy 08-08-20 24 Unknown, Unknown Reaction [facility] (1 source) Penicillins Drug allergy (disorder) 03-28-20 23 [facility] Repository (10 sources) cefdinir Drug Allergy 08-08-20 24 Unknown, Unknown Reaction [facility] (7 sources) venlafaxine Drug Allergy Unknown [facility] Other (8 sources) venlafaxine Drug Allergy 08-08-20 24 Unknown, Unknown Reaction [facility] (5 sources) Penicillin G Benzathine & Proc Drug allergy Unknown [facility] Other (5 sources) NYLON STITCHING Propensity to adverse reactions 10-13-20 17 Unknown [facility] Other (5 sources) Allergies Reconciled Propensity to adverse reactions Unknown [facility] Other (5 sources) patient allergy list reviewed by nurse or physicia Propensity to adverse reactions 10-13-20 Comment:Done [facility] Other (2 sources) Penicillins Propensity to adverse [...] FOR PAIN Oral for 7 Days Not-Taking [id number] 200 actuat albuterol 0.09 mg/actuat metered dose [...] mouth every we ek Cholecalciferol 1.25 MG (35050 UT) 1 capsule Orally weekly for 90 [...] deficiency Episodic Other aftercare (2 sources) Other longterm (current) drug therapy; Translations: [OTH CARE HOME CURRENT DRUG THERAPY] Onset: 07-30-2021 Episodic Other [...] Basophils (Bld) [#/Vol] 0.1 10 3/uL 0.0-0.1 [facility] Basophils/100 WBC Auto (Bld) on 08-09-2024 Basophils/100 WBC (Bld) 0.7 % 0.2-2.0 [facility] Eosinophils/100 WBC Auto (Bl d)on 08-09-2024 Eosinophils/100 WBC (Bld) 3.2 % 0.9-7.0 [facility] Erythrocyte distribution wid th Auto (RBC) [Ratio]on 08-09-2024 Erythrocyte distribution width (RBC) [Ratio] 12.2 % 11.0-15.0 [facility] Estimated glomerular filtrat ion rate (GFR) non- Americanon 08-09-2024 GFR/1.73 sq M.predicted among non-blacks MDRD (S/P/Bld) [Vol rate/Area] mL/min/{1.73_m2} >=60 [facility] Globulin Calc (S) [Mass/Vol] on 08-09-2024 Globulin (S) [Mass/Vol] 3.7 g/dL F [facility] Hematocrit Auto (Bld) [Volum e fraction]on 08-09-2024 Hematocrit (Bld) [Volume fraction] 45.1 % 36.0-48.0 [facility] Hemoglobin [Mass/volume] in Bloodon 08-09-2024 Hemoglobin (Bld) [Mass/Vol] 15.2 g/dL 12.0-16.0 [facility] Laboratory - Chemistry and C hemistry - challengeon 08-09-2024 Albumin [Mass/Vol] 3.5 g/dL 3.4-5.0 [facility] ALP [Catalytic activity/Vol] 100 U/L 46-116 [facility] ALT [Catalytic activity/Vol] 17 U/L 14-59 [facility] AST [Catalytic activity/Vol] 14 U/L Low 15-37 [facility] Bilirubin [Mass/Vol] 0.5 mg/dL 0.2-1.0 [facility] Calcium [Mass/Vol] 9.6 mg/dL 8.5-10.1 [facility] Chloride [Moles/Vol] 100 mmol/L 98-107 [facility] CO2 [Moles/Vol] 35.8 mmol/L High 21.0-32.0 [facility] Creatinine [Mass/Vol] 0.81 mg/dL 0.55-1.02 [facility] Ferritin [Mass/Vol] 49.0 ng/mL 8.0-252.0 [facility] GFR/1.73 sq M.predicted MDRD (S/P/Bld) [Vol rate/Area] mL/min/{1.73_m2} >=60 [facility] Glucose [Mass/Vol] 156 mg/dL High 74-106 [facility] Potassium [Moles/Vol] 3.9 mmol/L 3.5-5.1 [facility] Protein [Mass/Vol] 7.2 g/dL 6.4-8.2 [facility] Sodium [Moles/Vol] 138 mmol/L 136-145 [facility] TSH Qn 2.316 m[IU]/L 0.358-3.740 [facility] Urea nitrogen [Mass/Vol] 14.0 mg/dL 7.0-18.0 [facility] Urea nitrogen/Creatinine [Mass ratio] 17.3 mg/mg [facility] Laboratory - Hematology and Cell countson 08-09-2024 Immature granulocytes/100 WBC (Bld) 0.2 % 0.0-0.5 [facility] Leukocytes [#/volume] correc sheila for nucleated erythrocytes in Blood by Automated counon 08-09-2024 WBC corrected for nucl RBC Auto (Bld) [#/Vol] 9.6 10 3/uL 4.0-11.0 [facility] Lymphocytes Auto (Bld) [#/Vo l]on 08-09-2024 Lymphocytes (Bld) [#/Vol] 2.6 10 3/uL 1.2-3.8 [facility] Lymphocytes/100 WBC Auto (Bl d)on 08-09-2024 Lymphocytes/100 WBC (Bld) 26.9 % 20.5-60.0 [facility] MCH Auto (RBC) [Entitic mass ]on 08-09-2024 MCH (RBC) [Entitic mass] 28.5 pg 26.7-34.0 [facility] MCHC Auto (RBC) [Mass/Vol]on 08-09-2024 MCHC (RBC) [Mass/Vol] 33.7 g/dL 29.9-35.2 [facility] MCV Auto (RBC) [Entitic vol] on 08-09-2024 MCV (RBC) [Entitic vol] 84.6 fL 81.0-99.0 [facility] Monocytes Auto (Bld) [#/Vol] on 08-09-2024 Monocytes (Bld) [#/Vol] 0.8 10 3/uL 0.3-0.8 [facility] Monocytes/100 WBC Auto (Bld) on 08-09-2024 Monocytes/100 WBC (Bld) 8.1 % 1.7-12.0 [facility] Neutrophils Auto (Bld) [#/Vo l]on 08-09-2024 Neutrophils (Bld) [#/Vol] 5.8 10 3/uL 1.4-6.5 [facility] Neutrophils/100 WBC Auto (Bl d)on 08-09-2024 Neutrophils/100 WBC (Bld) 60.9 % 43.0-75.0 [facility] No Panel Informationon 08-09 Eosinophils # (Auto) 0.3 10 3/uL 0.0-0.7 [facility] Immature Granulocyte # (Auto) 0.02 10 3/uL 0.00-0.03 [facility] Platelet mean volume Auto (B ld) [Entitic vol]on 08-09-2024 Platelet mean volume (Bld) [Entitic vol] 8.4 fL Low 9.5-13.5 [facility] Platelets Auto (Bld) [#/Vol] on 08-09-2024 Platelets (Bld) [#/Vol] 307 10 3/uL 150-450 [facility] RBC Auto (Bld) [#/Vol]on RBC (Bld) [#/Vol] 5.33 10 6/uL 4.20-5.40 [facility] Serum or plasma albumin/glob ulin mass ratioon 08-09-2024 Albumin/Globulin [Mass ratio] 0.9 {ratio} [facility] Serum or plasma anion gap de terminationon 08-09-2024 Anion gap [Moles/Vol] 6.1 mmol/L [facility] Basic Metabolic Panelon 05 Anion gap [Moles/Vol] 9.4 mmol/L Normal 6.0-15.0 [facility] Comment on above: Performed By: #### B MP, CBC #### [facility] [address] [place] [address] [place] Calcium [Mass/Vol] 8.8 mg/dL Normal 8.6-10.3 [facility] Comment on above: Performed By: #### B MP, CBC #### [facility] [address] [place] [id number] [place] Chloride [Moles/Vol] 102 mmol/L Normal 98-107 [facility] Comment on above: Performed By: #### B MP, CBC #### [facility] [address] [place] [address] [place] CO2 [Moles/Vol] 32.8 mmol/L High 21.0-31.0 [facility] Comment on above: Performed By: #### B MP, CBC #### [facility] [address] Creatinine [Mass/Vol] 0.73 mg/dL Normal 0.60-1.20 [facility] Comment on above: Performed By: #### B MP, CBC #### [facility] [address] [place] [address] [place] Creatinine Clr Calc Pharmacy 56.10 Normal [facility] Comment on above: Result Comment: PERF ORMED BY: [place] [address] PATHOLOGIST METER READER CHIEF AVIVA ELLISON M.D. Performed By: #### B MP, CBC #### [facility] [address] [place] [address] [place] GFR/1.73 sq M.predicted MDRD (S/P/Bld) [Vol rate/Area] mL/min/{1.73_m2} [facility] Comment on above: Performed By: #### B MP, CBC #### [facility] [address] [place] [address] [place] Glucose [Mass/Vol] 113 mg/dL High 70-100 [facility] Comment on above: Result Comment: [place] Glucose Reference Range is dependent on time and content of last meal. Glucose of more than 200 mg/dL in a nonstressed, ambulatory subject supports the diagnosis of Diabetes Mellitus. ADA recommended reference range Performed By: #### B MP, CBC #### [facility] [address] [place] [address] [place] Potassium [Moles/Vol] 4.2 mmol/L Normal 3.5-5.1 [facility] Comment on above: Performed By: #### B MP, CBC #### [facility] [address] [place] [address] [place] Sodium [Moles/Vol] 140 mmol/L Normal 136-145 [facility] Comment on above: Performed By: #### B MP, CBC #### [address] Urea nitrogen [Mass/Vol] 10 mg/dL Normal 7-25 [facility] Comment on above: Performed By: #### B MP, CBC #### [address] Basophils Auto (Bld) [#/Vol] Ordered By: Shawn Camarillo on 03-28-2023 Basophils (Bld) [#/Vol] 0.1 10*3/uL 0.0-0.2 [facility] Basophils/100 WBC Auto (Bld) Ordered By: Shawn Camarillo on 03-28-2023 Basophils/100 WBC (Bld) 1.0 % . F [facility] BioFire Not Detectedon 03-28 BioFire Not Detected Not detected Normal Not Detecte [facility] Comment on above: Result Comment: This is a duplicate RP2.1 COVID (PCR) result to be used for statistical tracking purpose only. PERFORMED BY: [place] [address] PATHOLOGIST METER READER CHIEF AVIVA ELLISON M.D. Performed By: #### R CRIS PANEL UPP., BIOFIRECOVNOTDE #### [address] COVID-19 Detected/Not Detect edOrdered By: Shawn Camarillo on 03-28-2023 SARS-CoV-2 (COVID-19) RNA UMESH+non-probe Ql (Nph) Not detected Not Detecte [facility] Comment on above: This is a duplicate RP2.1 COVID (PCR) result to be used for statistical tracking purpose only. Calcium [Mass/volume] in Ser um or PlasmaOrdered By: Shawn Camarillo on 03-28-2023 Calcium [Mass/Vol] 8.8 mg/dL 8.6-10.3 [facility] Carbon dioxide, total [Moles /volume] in Serum or PlasmaOrdered By: Shawn Camarillo on 03-28-2023 CO2 [Moles/Vol] 32.8 mmol/L 21.0-31.0 [facility] Chloride [Moles/volume] in S nhi or PlasmaOrdered By: Shawn Camarillo on 03-28-2023 Chloride [Moles/Vol] 102 mmol/L 98-107 [facility] Complete Blood Count Auto Di ffon 03-28-2023 Basophils (Bld) [#/Vol] 0.1 10*3/uL Normal 0.0-0.2 [facility] Comment on above: Result Comment: PERF ORMED BY: [place] [address] PATHOLOGIST METER READER CHIEF AVIVA ELLISON M.D. Performed By: #### B MP, CBC #### [address] Basophils/100 WBC (Bld) 1.0 % Normal . [facility] Comment on above: Performed By: #### B MP, CBC #### [address] Eosinophils (Bld) [#/Vol] 0.3 10*3/uL Normal 0.0-0.45 [facility] Comment on above: Performed By: #### B MP, CBC #### [address] Eosinophils/100 WBC (Bld) 3.2 % Normal . [facility] Comment on above: Performed By: #### B MP, CBC #### [address] Erythrocyte distribution width (RBC) [Ratio] 12.8 % Normal 11.9-15.3 [facility] Comment on above: Performed By: #### B MP, CBC #### [address] Hematocrit (Bld) [Volume fraction] 45.9 % Normal 34.0-46.4 [facility] Comment on above: Performed By: #### B MP, CBC #### [address] Hemoglobin (Bld) [Mass/Vol] 15.5 g/dL High 11.8-15.4 [facility] Comment on above: Performed By: #### B MP, CBC #### [address] Lymphocytes (Bld) [#/Vol] 2.0 10*3/uL Normal 1.00-4.8 [facility] Comment on above: Performed By: #### B MP, CBC #### [address] Lymphocytes/100 WBC (Bld) 23.9 % Normal . [facility] Comment on above: Performed By: #### B MP, CBC #### [address] MCH (RBC) [Entitic mass] 28.2 pg Normal 24.7-34.3 [facility] Comment on above: Performed By: #### B MP, CBC #### [address] MCV (RBC) [Entitic vol] 83.6 fL Normal 80-100 [facility] Comment on above: Performed By: #### B MP, CBC #### [address] Mean Corpuscular HGB Conc 33.8 g/dL Normal 32.0-35.0 [facility] Comment on above: Performed By: #### B MP, CBC #### [address] Monocytes (Bld) [#/Vol] 0.6 10*3/uL Normal 0.0-0.8 [facility] Comment on above: Performed By: #### B MP, CBC #### [address] Monocytes/100 WBC (Bld) 17.31 % Normal 0.00-20.00 [facility] Comment on above: Performed By: #### B MP, CBC #### [address] Monocytes/100 WBC (Bld) 6.9 % Normal . [facility] Comment on above: Performed By: #### B MP, CBC #### [facility] [address] [place] [address] [place] Neutrophils (Bld) [#/Vol] 5.6 10*3/uL Normal 1.8-7.7 [facility] Comment on above: Performed By: #### B MP, CBC #### [facility] [address] [place] [address] [place] Neutrophils/100 WBC (Bld) 65.0 % Normal . [facility] Comment on above: Performed By: #### B MP, CBC #### [facility] [address] [place] [address] [place] NRBC% 0.0 /100{WBC} Normal 0-0.5 [facility] Comment on above: Performed By: #### B MP, CBC #### [facility] [address] [place] [address] [place] Platelet mean volume (Bld) [Entitic vol] 6.3 fL Normal 6.3-10.7 [facility] Comment on above: Performed By: #### B MP, CBC #### [facility] [address] [place] [address] [place] Platelets (Bld) [#/Vol] 323 10*3/uL Normal 150-450 [facility] Comment on above: Performed By: #### B MP, CBC #### [facility] [address] [place] [address] [place] RBC (Bld) [#/Vol] 5.49 10*6/uL High 3.60-5.00 [facility] Comment on above: Performed By: #### B MP, CBC #### [facility] [address] [place] [address] [place] WBC (Bld) [#/Vol] 8.6 10*3/uL Normal 3.8-11.6 [facility] Comment on above: Performed By: #### B MP, CBC #### [facility] [address] [place] [address] [place] Creatinine [Mass/volume] in Serum or PlasmaOrdered By: Shawn Camarillo on 03-28-2023 Creatinine [Mass/Vol] 0.73 mg/dL 0.60-1.20 [facility] Eosinophils Auto (Bld) [#/Vo l]Ordered By: Shawn Camarillo on 03-28-2023 Eosinophils (Bld) [#/Vol] 0.3 10*3/uL 0.0-0.45 [facility] Eosinophils/100 WBC Auto (Bl d)Ordered By: Shawn Camarillo on 03-28-2023 Eosinophils/100 WBC (Bld) 3.2 % . [facility] Erythrocyte distribution wid th Auto (RBC) [Ratio]Ordered By: Shawn Camarillo on 03-28-2023 Erythrocyte distribution width (RBC) [Ratio] 12.8 % 11.9-15.3 [facility] Glucose [Mass/volume] in Ser um or PlasmaOrdered By: Shawn Camarillo on 03-28-2023 Glucose [Mass/Vol] 113 mg/dL 70-100 [facility] Comment on above: ADA recommended refe rence rangeRandom Glucose Reference Range is dependent on time and content of last meal. Glucose of more than 200 mg/dL in a nonstressed, ambulatory subject supports the diagnosis of Diabetes Mellitus. Hematocrit Auto (Bld) [Volum e fraction]Ordered By: Shawn Camarillo on 03-28-2023 Hematocrit (Bld) [Volume fraction] 45.9 % 34.0-46.4 [facility] Hemoglobin [Mass/volume] in BloodOrdered By: Shawn Camarillo on 03-28-2023 Hemoglobin (Bld) [Mass/Vol] 15.5 g/dL 11.8-15.4 [facility] Leukocytes [#/volume] correc sheila for nucleated erythrocytes in Blood by Automated counOrdered By: Shawn Camarillo on 03-28-2023 WBC corrected for nucl RBC Auto (Bld) [#/Vol] 8.6 10*3/uL 3.8-11.6 [facility] Lymphocytes Auto (Bld) [#/Vo l]Ordered By: Shawn Camarillo on 03-28-2023 Lymphocytes (Bld) [#/Vol] 2.0 10*3/uL 1.00-4.8 [facility] Lymphocytes/100 WBC Auto (Bl d)Ordered By: Shawn Camarillo on 03-28-2023 Lymphocytes/100 WBC (Bld) 23.9 % . [facility] MCH Auto (RBC) [Entitic mass ]Ordered By: Shawn Camarillo on 03-28-2023 MCH (RBC) [Entitic mass] 28.2 pg 24.7-34.3 [facility] MCHC Auto (RBC) [Mass/Vol]Or dered By: Shawn Camarillo on 03-28-2023 MCHC (RBC) [Mass/Vol] 33.8 g/dL 32.0-35.0 [facility] MCV Auto (RBC) [Entitic vol] Ordered By: Shawn Camarillo on 03-28-2023 MCV (RBC) [Entitic vol] 83.6 fL 80-100 [facility] Monocyte distribution width [Entitic volume] in Blood by AutomatedOrdered By: Shawn Camarillo on 03-28-2023 Monocyte distribution width Auto (Bld) [Entitic vol] 17.31 % 0.00-20.00 [facility] Monocytes Auto (Bld) [#/Vol] Ordered By: Shawn Camarillo on 03-28-2023 Monocytes (Bld) [#/Vol] 0.6 10*3/uL 0.0-0.8 [facility] Monocytes/100 WBC Auto (Bld) Ordered By: Shawn Camarillo on 03-28-2023 Monocytes/100 WBC (Bld) 6.9 % . [facility] Neutrophils Auto (Bld) [#/Vo l]Ordered By: Shawn Camarillo on 03-28-2023 Neutrophils (Bld) [#/Vol] 5.6 10*3/uL 1.8-7.7 [facility] Neutrophils/100 WBC Auto (Bl d)Ordered By: Shawn Camarillo on 03-28-2023 Neutrophils/100 WBC (Bld) 65.0 % . [facility] No Panel InformationOrdered By: Shawn Camarillo on 03-28-2023 Estimated GFR (CKD-EPI) > 60.0 mL/Min [facility] Creatinine Clearance (Chem 56.10 [facility] Nucleated erythrocytes [Pres ence] in Blood by Automated countOrdered By: Shawn Camarillo on 03-28-2023 Nucleated RBC Auto Ql (Bld) 0.0 /100{WBC} 0-0.5 [facility] Platelet mean volume Auto (B ld) [Entitic vol]Ordered By: Shawn Camarillo on 03-28-2023 Platelet mean volume (Bld) [Entitic vol] 6.3 fL 6.3-10.7 [facility] Platelets Auto (Bld) [#/Vol] Ordered By: Shawn Camarillo on 03-28-2023 Platelets (Bld) [#/Vol] 323 10*3/uL 150-450 [facility] Potassium [Moles/volume] in Serum or PlasmaOrdered By: Shawn Camarillo on 03-28-2023 Potassium [Moles/Vol] 4.2 mmol/L 3.5-5.1 [facility] RBC Auto (Bld) [#/Vol]Ordere d By: Shawn Camarillo on 03-28-2023 RBC (Bld) [#/Vol] 5.49 10*6/uL 3.60-5.00 [facility] Respiratory (Upper) Panel, P CRon 03-28-2023 Respiratory [...] Influenza A H3 Blank Space PERFORMED BY: [place] [address] PATHOLOGIST METER READER CHIEF AVIVA ELLISON M.D. Normal [facility] Comment on above: Performed By: #### R CRIS PANEL UPP., BIOFIRECOVNOTDE #### [address] Respiratory pathogens DNA an d RNA panel - Nasopharynx by UMESH with non-probe detectionOrdered By: Shawn Camarillo on 03-28-2023 Respiratory pathogens DNA and RNA panel UMESH+non-probe (Nph) [facility] Serum or plasma anion gap de terminationOrdered By: Shawn Camarillo on 03-28-2023 Anion gap [Moles/Vol] 9.4 mmol/L 6.0-15.0 [facility] Sodium [Moles/volume] in Ser um or PlasmaOrdered By: Shawn Camarillo on 03-28-2023 Sodium [Moles/Vol] 140 mmol/L 136-145 [facility] Urea nitrogen [Mass/volume] in Serum or PlasmaOrdered By: Shawn Camarillo on 03-28-2023 Urea nitrogen [Mass/Vol] 10 mg/dL 7-25 [facility] WBC Auto (Bld) [#/Vol]Ordere d By: Shawn Camarillo on 03-28-2023 WBC (Bld) [#/Vol] 8.6 10*3/uL 3.8-11.6 [facility] XR chest 1V portableon 03-28 [address] [facility] [place] [address] [place] [address] XRay Report Signed Patient: Nya Jiang MR#: [id number] : 1945 Acct:[id number] Age/Sex: 77 / F ADM Date: 03/28/23 Loc: ER Room: Type: [facility] ER Attending Dr: Copies to: Shawn Camarillo [...] Nata Zamudio M.D.03/28/2023 10:20 AM Dictation Location: [place] [address] Transcribed By: [facility] 03/28/23 1020 Dictated By: Nata Zamudio II, MD 03/28/23 1019 Signed By: 03/28/23 1020 [facility] CBC AUTO DIFFon 01-11-2023 BASO # 0.1 103/ul Normal 0.0-0.1 [facility] Comment on above: Performed By: #### U MICRO, ERUR #### [facility] [address] [place] [address] Dr. Otf Rodriguez Basophils/100 WBC (Bld) 0.5 % Normal 0.2-2.0 [facility] Comment on above: Performed By: #### U MICRO, ERUR #### [facility] [address] [place] [address] [address] Otf Rodriguez EO # 0.3 103/ul Normal 0.0-0.7 [facility] Comment on above: Performed By: #### U MICRO, ERUR #### [facility] [address] [place] [address] [address] Otf Rodriguez Eosinophils/100 WBC (Bld) 1.8 % Normal 0.9-7.0 [facility] Comment on above: Performed By: #### U MICRO, ERUR #### [facility] [address] [place] [address] [address] Otf Rodriguez Erythrocyte distribution width (RBC) [Ratio] 12.4 % Normal 11.0-15.0 [facility] Comment on above: Performed By: #### U MICRO, ERUR #### [facility] [address] [place] [address] Dr. Otf Rodriguez Hematocrit (Bld) [Volume fraction] 46.0 % Normal 36.0-48.0 [facility] Comment on above: Performed By: #### U MICRO, ERUR #### [facility] [address] [place] [address] Dr. Otf Rodriguez Hemoglobin (Bld) [Mass/Vol] 16.0 g/dL Normal 12.0-16.0 [facility] Comment on above: Performed By: #### U MICRO, ERUR #### [facility] [address] [place] [address] Dr. Otf Rodriguez IG # 0.05 10e3/ul Critically high 0.00-0.03 [facility] Comment on above: Performed By: #### U MICRO, ERUR #### [facility] [address] [place] [address] Dr. Otf Rodriguez IG % 0.3 % Normal 0.0-0.5 [facility] Comment on above: Performed By: #### U MICRO, ERUR #### [facility] [address] [place] [address] Dr. Otf Rodriguez LYMPH # 2.5 103/ul Normal 1.2-3.8 [facility] Comment on above: Performed By: #### U MICRO, ERUR #### [facility] [address] [place] [address] Dr. Otf Rodriguez Lymphocytes/100 WBC (Bld) 16.8 % Critically low 20.5-60.0 [facility] Comment on above: Performed By: #### U MICRO, ERUR #### [facility] [address] [place] [address] Dr. Otf Rodriguez MANUAL DIFF REQ NO Normal [facility] Comment on above: Performed By: #### U MICRO, ERUR #### [facility] [address] [place] [address] Dr. Otf Rodriguez MCH (RBC) [Entitic mass] 28.7 pg Normal 26.7-34.0 [facility] Comment on above: Performed By: #### U MICRO, ERUR #### [facility] [address] [place] [address] Dr. Otf Rodriguez MCHC (RBC) [Mass/Vol] 34.8 g/dL Normal 29.9-35.2 [facility] Comment on above: Performed By: #### U MICRO, ERUR #### [facility] [address] [place] [address] Dr. Otf Rodriguez MCV (RBC) [Entitic vol] 82.4 fL Normal 81.0-99.0 [facility] Comment on above: Performed By: #### U MICRO, ERUR #### [facility] [address] [place] [address] Dr. Otf Rodriguez MONO # 1.0 103/ul Critically high 0.3-0.8 [facility] Comment on above: Performed By: #### U MICRO, ERUR #### [facility] [address] [place] [address] Dr. Otf Rodriguez Monocytes/100 WBC (Bld) 6.5 % Normal 1.7-12.0 [facility] Comment on above: Performed By: #### U MICRO, ERUR #### [facility] [address] [place] [address] Dr. Otf Rodriguez NEUT # 11.2 103/ul Critically high 1.4-6.5 [facility] Comment on above: Performed By: #### U MICRO, ERUR #### [facility] [address] [place] [address] Dr. Otf Rodriguez Neutrophils/100 WBC (Bld) 74.1 % Normal 43.0-75.0 [facility] Comment on above: Performed By: #### U MICRO, ERUR #### [facility] [address] [address] [address] Otf Rodriguez Platelet mean volume (Bld) [Entitic vol] 8.1 fL Critically low 9.5-13.5 [facility] Comment on above: Performed By: #### U MICRO, ERUR #### [facility] [address] [address] [address] Otf Rodriguez PLT 338 103/ul Normal 150-450 [facility] Comment on above: Performed By: #### U MICRO, ERUR #### [facility] [address] [address] [address] Otf Rodriguez RBC 5.58 106/ul Critically high 4.20-5.40 [facility] Comment on above: Performed By: #### U MICRO, ERUR #### [facility] [address] [address] [address] Otf Rodriguez WBC 15.1 103/ul Critically high 4.0-11.0 [facility] Comment on above: Performed By: #### U MICRO, ERUR #### [facility] [address] [address] [address] ABD/PELV W CONon [...] CELENA WATSON Date: 2023-01-11 19:32 Normal [facility] ER URINE PROFILEon 3 Bilirubin Ql (U) Negative Normal NEGATIVE [facility] Comment on above: Performed By: #### U MICRO, ERUR #### [facility] [address] [address] [address] Otf Rodriguez Clarity (U) CLEAR Normal CLEAR [facility] Comment on above: Performed By: #### U MICRO, ERUR #### [facility] [address] [address] [address] Otf Rodriguez Color (U) LT. YELLOW Normal YELLOW [facility] Comment on above: Performed By: #### U MICRO, ERUR #### [facility] [address] [address] [address] Otf Rodriguez ERUAHD A micrscopic examination will be performed if indicated. Normal [facility] Comment on above: Performed By: #### U MICRO, ERUR #### [facility] [address] [address] [address] Otf Rodriguez Glucose Ql (U) Negative Normal NEGATIVE [facility] Comment on above: Performed By: #### U MICRO, ERUR #### [facility] [address] [address] [address] Otf Rodriguez Hemoglobin Ql (U) TRACE-LYSED Abnormal NEGATIVE [facility] Comment on above: Performed By: #### U MICRO, ERUR #### [facility] [address] [place] [address] Dr. Otf Rodriguez Ketones Ql (U) Negative Normal NEGATIVE [facility] Comment on above: Performed By: #### U MICRO, ERUR #### [facility] [address] [place] [address] Dr. Otf Rodriguez LEUKOCYTES TRACE Abnormal NEGATIVE [facility] Comment on above: Performed By: #### U MICRO, ERUR #### [facility] [address] [place] [address] Dr. Otf Rodriguez Nitrite Ql (U) Negative Normal NEGATIVE [facility] Comment on above: Performed By: #### U MICRO, ERUR #### [facility] [address] [place] [address] Dr. Otf Rodriguez pH (U) 7.0 [pH] Normal 5-9 [facility] Comment on above: Performed By: #### U MICRO, ERUR #### [facility] [address] [place] [address] Dr. Otf Rodriguez Protein (U) [Mass/Vol] 30 mg/dL Abnormal NEGAT SIL/ TRACE [facility] Comment on above: Performed By: #### U MICRO, ERUR #### [facility] [address] [place] [address] Dr. Otf Rodriguez SPEC GRAVITY 1.010 Normal 1.005-<=1.025 [facility] Comment on above: Performed By: #### U MICRO, ERUR #### [facility] [address] [place] [address] Dr. Otf Rodriguez UR MICRO IND INDICATED Normal [facility] Comment on above: Performed By: #### U MICRO, ERUR #### [facility] [address] [place] [address] Dr. Otf Rodriguez Urobilinogen Qn (U) 0.2 {Tian'U}/dL Normal 0.2 - 1. 0 [facility] Comment on above: Performed By: #### U MICRO, ERUR #### [facility] [address] [place] [address] Dr. Otf Rodriguez LACTATE/LACTIC ACIDon 2022 Lactate [Moles/Vol] 0.6 mmol/L Normal 0.4-1.9 [facility] Comment on above: Performed By: #### L ACT #### [facility] [address] [place] [address] Dr. Otf Rodriguez LIPASEon 01-11-2023 Lipase [Catalytic activity/Vol] 159.0 U/L Normal 73.0-393.0 [facility] Comment on above: Performed By: #### U MICRO, ERUR #### [facility] [address] [place] [address] Dr. Otf Rodriguze PROF 14(COMP METB)on 023 Albumin [Mass/Vol] 4.0 g/dL Normal 3.4-5.0 [facility] Comment on above: Performed By: #### U MICRO, ERUR #### [facility] [address] [place] [address] Dr. Otf Rodriguez Albumin/Globulin [Mass ratio] 1.1 {ratio} Normal [facility] Comment on above: Performed By: #### U MICRO, ERUR #### [facility] [address] [place] [address] Dr. Otf Rodriguez ALP [Catalytic activity/Vol] 128 U/L Critically high 46-116 [facility] Comment on above: Performed By: #### U MICRO, ERUR #### [facility] [address] [place] [address] Dr. Otf Rodriguez ALT [Catalytic activity/Vol] 20 U/L Normal 14-59 [facility] Comment on above: Performed By: #### U MICRO, ERUR #### [facility] [address] [place] [address] Dr. Otf Rodriguez Anion gap [Moles/Vol] 11.0 mmol/L Normal [facility] Comment on above: Performed By: #### U MICRO, ERUR #### [facility] [address] [address] [address] Otf Rodriguez AST [Catalytic activity/Vol] 19 U/L Normal 15-37 [facility] Comment on above: Performed By: #### U MICRO, ERUR #### [facility] [address] [address] [address] Otf Rodriguez Bilirubin [Mass/Vol] 0.4 mg/dL Normal 0.2-1.0 [facility] Comment on above: Performed By: #### U MICRO, ERUR #### [facility] [address] [address] [address] Otf Rodriguez Calcium [Mass/Vol] 9.2 mg/dL Normal 8.5-10.1 [facility] Comment on above: Performed By: #### U MICRO, ERUR #### [facility] [address] [place] [address] Dr. Otf Rodriguez Chloride [Moles/Vol] 99 mmol/L Normal 98-107 [facility] Comment on above: Performed By: #### U MICRO, ERUR #### [facility] [address] [address] [address] Otf Rodriguez CO2 [Moles/Vol] 29.7 mmol/L Normal 21.0-32.0 [facility] Comment on above: Performed By: #### U MICRO, ERUR #### [facility] [address] [place] [address] Dr. Otf Rodriguez Creatinine [Mass/Vol] 0.71 mg/dL Normal 0.55-1.02 [facility] Comment on above: Performed By: #### U MICRO, ERUR #### [facility] [address] [address] [address] Otf Rodriguez EGFR-AF UZBEK >60 Normal >=60 [facility] Comment on above: Performed By: #### U MICRO, ERUR #### [facility] [address] [address] [address] Otf Rodriguez EGFR-NON AF UZBEK >60 Normal >=60 [facility] Comment on above: Performed By: #### U MICRO, ERUR #### [facility] [address] [address] [address] Otf Rodriguez Globulin (S) [Mass/Vol] 3.6 g/dL Normal [facility] Comment on above: Performed By: #### U MICRO, ERUR #### [facility] [address] [address] [address] Otf Rodriguez Glucose [Mass/Vol] 129 mg/dL Critically high 74-106 [facility] Comment on above: Performed By: #### U MICRO, ERUR #### [facility] [address] [address] [address] Otf Rodriguez Potassium [Moles/Vol] 3.7 mmol/L Normal 3.5-5.1 [facility] Comment on above: Performed By: #### U MICRO, ERUR #### [facility] [address] [place] [address] Dr. Otf Rodriguez Protein [Mass/Vol] 7.6 g/dL Normal 6.4-8.2 [facility] Comment on above: Performed By: #### U MICRO, ERUR #### [facility] [address] [place] [address] Dr. Otf Rodriguez Sodium [Moles/Vol] 136 mmol/L Normal 136-145 [facility] Comment on above: Performed By: #### U MICRO, ERUR #### [facility] [address] [place] [address] Dr. Otf Rodriguez Urea nitrogen [Mass/Vol] 11.0 mg/dL Normal 7.0-18.0 [facility] Comment on above: Performed By: #### U MICRO, ERUR #### [facility] [address] [place] [address] Dr. Otf Rodriguez Urea nitrogen/Creatinine [Mass ratio] 15.5 mg/mg Normal [facility] Comment on above: Performed By: #### U MICRO, ERUR #### [facility] [address] [place] [address] Dr. Otf Rodriguez TROPONIN, HIGH SENSITIVITYon 01-11-2023 HSTROP 11.8 pg/mL Normal 4.0-51.3 [facility] Comment on above: Result Comment: CUT- OFF POINTS HAVE BEEN ESTABLISHED BASED ON THE FOURTH UNIVERSAL DEFINITIONS OF MYOCARDIAL INFARCTION. THE UPPER REFERENCE LIMIT (URL) OF TROPONIN, DEFINED THE 99TH PERCENTILE OF cTnI DISTRIBUTION IN A REFERENCE POPULATION, HAS BEEN CONFIRMED THE DECISION THRESHOLD FOR GA DIAGNOSIS. Performed By: #### U MICRO, ERUR #### [facility] [address] [place] [address] Dr. Otf Rodriguez URINE MICROSCOPIC ONLYon BACTERIA NONE SEEN Normal NONE SEEN [facility] Comment on above: Performed By: #### U MICRO, ERUR #### [facility] [address] [place] [address] Dr. Otf Rodriguez Bacteria identified Cx Nom (U) NOT INDICATED Normal [facility] Comment on above: Performed By: #### U MICRO, ERUR #### [facility] [address] [place] [address] Dr. Otf Rodriguez CAST NONE SEEN Normal NONE SEEN [facility] Comment on above: Performed By: #### U MICRO, ERUR #### [facility] [address] [place] [address] Dr. Otf Rodriguez Crystals LM Nom (Urine sed) NONE SEEN Normal NONE SEEN [facility] Comment on above: Performed By: #### U MICRO, ERUR #### [facility] [address] [place] [address] Dr. Otf Rodriguez Epithelial cells LM Ql (Urine sed) NONE SEEN Normal NONE SEEN /RARE [facility] Comment on above: Performed By: #### U MICRO, ERUR #### [facility] [address] [place] [address] Dr. Otf Rodriguez MUCOUS NONE SEEN Normal NONE SEEN [facility] Comment on above: Performed By: #### U MICRO, ERUR #### [facility] [address] [place] [address] Dr. Otf Rodriguez RBC 0-2 Normal 0-2 [facility] Comment on above: Performed By: #### U MICRO, ERUR #### [facility] [address] [place] [address] Dr. Otf Rodriguez WBC 0-2 Abnormal NONE SEEN [facility] Comment on above: Performed By: #### U MICRO, ERUR #### [facility] [address] [address] [address] Otf Rodriguez MRI CSPINE WO CONon [...] CRISTIANE SIMPSON Date: 2022-10-16 10:04 Normal [facility] CT cervical spine wo conon 1 12-10-2021 CT cervical spine wo con [facility] [address] [place] [address] CT Scan Report Signed Patient: Nya Jiang MR#: [id number] : 1945 Acct:[id number] Age/Sex: 77 / F ADM Date: 10/10/22 Loc: ER Room: Type: [facility] ER Attending Dr: Copies to: Marek Rolle [...] Neema Niño M.D.10/10/2022 11:20 AM Dictation Location: [place] [address] Transcribed By: [facility] 10/10/22 1120 Dictated By: Neema Niño MD 10/10/22 1110 Signed By: 10/10/22 1120 [facility] XR CSPINE 2_3 VIEWSon 2021 XR [...] CRISTIANE SIMPSON Date: 2022-10-01 12:07 Normal [facility] CULTURE WOUNDon 09-15-2022 CULTURE WOUND Culture Observations: No growth of aerobes at 48 hours. Culture Observations: No growth of anaerobes at 72 hours. Normal [facility] Comment on above: Performed By: #### W OUNDCX #### [facility] [address] [address] [address] Otf Rodriguez GRAM STAINon 09-15-2022 COMMENTS NO ORGANISMS OBSERVED Normal [facility] Comment on above: Performed By: #### G STAIN #### [facility] [address] [address] [address] Otf Rodriguez DIPHTHEROIDS Normal [facility] Comment on above: Performed By: #### G STAIN #### [facility] [address] [address] [address] Otf Rodriguez EPITHELIALS Normal [facility] Comment on above: Performed By: #### G STAIN #### [facility] [address] [address] [address] Otf Rodriguez FUNGAL ELEMENTS Normal [facility] Comment on above: Performed By: #### G STAIN #### [facility] [address] [address] [address] Otf Rodriguez GRAM NEG BACILLI Normal [facility] Comment on above: Performed By: #### G STAIN #### [facility] [address] [address] [address] Otf MOYA NEG DIPPLOCOCCI Normal [facility] Comment on above: Performed By: #### G STAIN #### [facility] [address] [address] [address] Otf Rodriguez GRAM POS BACILLI Normal [facility] Comment on above: Performed By: #### G STAIN #### [facility] [address] [place] [address] Dr. Otf Rodriguez GRAM POSITIVE COCCI Normal [facility] Comment on above: Performed By: #### G STAIN #### [facility] [address] [address] [address] Otf Rordiguez GRAM STAIN SOURCE Lt 4th Toe Abscess Normal [facility] Comment on above: Performed By: #### G STAIN #### [facility] [address] [address] [address] Otf Rodriguez GS_DIPTH Normal [facility] Comment on above: Performed By: #### G STAIN #### [facility] [address] [address] [address] Otf Rodriguez WBC NONE SEEN Normal [facility] Comment on above: Performed By: #### G STAIN #### [facility] [address] [address] [address] Otf Rodriguez AMYLASEon 07-14-2021 AMYL <30 Critically low 31-110 [facility] Comment on above: Performed By: #### C MP, DHIRAJ, LIPA #### [facility] [address] [address] Jasper Bethea CARDIAC NATA 3-6on 1 CK [Catalytic activity/Vol] 194 U/L Critically high 30-135 [facility] Comment on above: Performed By: #### C VDTBH #### [facility] [address] [place], [place] [id number] Jasper Bethea CK.MB [Mass/Vol] 0.97 ng/mL Normal <=2.37 [facility] Comment on above: Performed By: #### C VDTBH #### [facility] [address] [place] [address] Jasper Bethea HSTROP 16.0 pg/mL Normal 4.0-35.5 [facility] Comment on above: Result Comment: CUT- OFF POINTS HAVE BEEN ESTABLISHED BASED ON THE FOURTH UNIVERSAL DEFINITIONS OF MYOCARDIAL INFARCTION. THE UPPER REFERENCE LIMIT (URL) OF TROPONIN, DEFINED THE 99TH PERCENTILE OF cTnI DISTRIBUTION IN A REFERENCE POPULATION, HAS BEEN CONFIRMED THE DECISION THRESHOLD FOR GA DIAGNOSIS. Performed By: #### C VDTBH #### [facility] [address] [place] [address] Jasper Bethea CBC AUTO DIFFon 07-14-2021 BASO # 0.0 103/ul Normal 0.0-0.1 [facility] Comment on above: Performed By: #### C VDTBH #### [facility] [address] [place] [address] Jasper Bethea Basophils/100 WBC (Bld) 0.3 % Normal 0.2-2.0 [facility] Comment on above: Performed By: #### C VDTBH #### [facility] [address] [place] [address] Jasper Bethea EO # 0.0 103/ul Normal 0.0-0.7 [facility] Comment on above: Performed By: #### C VDTBH #### [facility] [address] [place], [place] [id number] Jasper Neema Eosinophils/100 WBC (Bld) 0.0 % Critically low 0.9-7.0 [facility] Comment on above: Performed By: #### C VDTBH #### [facility] [address] [place], [place] [id number] Jasper Bethea Erythrocyte distribution width (RBC) [Ratio] 13.2 % Normal 11.0-15.0 [facility] Comment on above: Performed By: #### C VDTBH #### [facility] [address] [place] [address] Jasper Bethea Hematocrit (Bld) [Volume fraction] 42.6 % Normal 36.0-48.0 [facility] Comment on above: Performed By: #### C VDTBH #### [facility] [address] [place] [address] Jasper Bethea Hemoglobin (Bld) [Mass/Vol] 13.7 g/dL Normal 12.0-16.0 [facility] Comment on above: Performed By: #### C VDTBH #### [facility] [address] [place] [address] Jasper Bethea IG # 0.03 10e3/ul Normal 0.00-0.03 [facility] Comment on above: Performed By: #### C VDTB #### [facility] [address] [place] [address] Jasperjanet Bethea IG % 0.3 % Normal 0.0-0.5 [facility] Comment on above: Performed By: #### C VDTBH #### [facility] [address] [place] [address] Jasper Bethea LYMPH # 1.1 103/ul Critically low 1.2-3.8 [facility] Comment on above: Performed By: #### C VDTBH #### [facility] [address] [place] [address] Jasper Bethea Lymphocytes/100 WBC (Bld) 10.0 % Critically low 20.5-60.0 [facility] Comment on above: Performed By: #### C VDTBH #### [facility] [address] [place] [address] Jasper Bethea MANUAL DIFF REQ NO Normal [facility] Comment on above: Performed By: #### C VDTBH #### [facility] [address] [place] [address] Jasper Neema MCH (RBC) [Entitic mass] 27.6 pg Normal 26.7-34.0 [facility] Comment on above: Performed By: #### C VDTBH #### [facility] [address] [place], [place] [id number] Jasper Bethea MCHC (RBC) [Mass/Vol] 32.2 g/dL Normal 29.9-35.2 [facility] Comment on above: Performed By: #### C VDTBH #### [facility] [address] [place] [address] Jasper Neema MCV (RBC) [Entitic vol] 85.9 fL Normal 81.0-99.0 [facility] Comment on above: Performed By: #### C VDTBH #### [facility] [address] [place] [address] Jasper Bethea MONO # 0.6 103/ul Normal 0.3-0.8 [facility] Comment on above: Performed By: #### C VDTBH #### [facility] [address] [place] [address] Jasper Neema Monocytes/100 WBC (Bld) 5.4 % Normal 1.7-12.0 [facility] Comment on above: Performed By: #### C VDTBH #### [facility] [address] [place] [address] Jasper Bethea NEUT # 9.4 103/ul Critically high 1.4-6.5 [facility] Comment on above: Performed By: #### C VDTBH #### [facility] [address] [place] [address] Jasper Neema Neutrophils/100 WBC (Bld) 84.0 % Critically high 43.0-75.0 [facility] Comment on above: Performed By: #### C VDTBH #### [facility] [address] [place], [place] [id number] Jasper Bethea Platelet mean volume (Bld) [Entitic vol] 8.7 fL Critically low 9.5-13.5 [facility] Comment on above: Performed By: #### C VDTBH #### [facility] [address] [place] [address] Jasper Bethea PLT 256 103/ul Normal 150-450 [facility] Comment on above: Performed By: #### C VDTBH #### [facility] [address] [place], [place] [id number] Jasper Bethea RBC 4.96 106/ul Normal 4.20-5.40 [facility] Comment on above: Performed By: #### C VDTBH #### [facility] [address] [place], [place] [id number] Jasper Bethea WBC 11.1 103/ul Critically high 4.0-11.0 [facility] Comment on above: Performed By: #### C VDTBH #### [facility] [address] [place] [address] Jasper Bethea CULTURE URINEon 07-14-2021 CULTURE URINE Culture Observations: GREATER THAN TWO ORGANISMS PRESENT. PLEASE RESUBMIT CLEAN CATCH MID-STREAM URINE IF CLINICALLY INDICATED. Normal [facility] Comment on above: Performed By: #### C VDTBH #### [facility] [address] [place] [address] Jasper Bethea LIPASEon 07-14-2021 Lipase [Catalytic activity/Vol] 120.0 U/L Normal 23.0-300.0 [facility] Comment on above: Performed By: #### C VDTBH #### [facility] [address] [place], [place] [id number] Jasper Bethea PROF 14(COMP METB)on 021 Albumin [Mass/Vol] 3.0 g/dL Critically low 3.5-5.0 [facility] Comment on above: Performed By: #### C MING DHIRAJ, LIPA #### [facility] [address] [place], [place] [id number] Jasper Bethea Albumin/Globulin [Mass ratio] 0.8 {ratio} Normal [facility] Comment on above: Performed By: #### C MP DHIRAJ, LIPA #### [facility] [address] [place] [address] Jasper Bethea ALP [Catalytic activity/Vol] 98 U/L Normal 38-126 [facility] Comment on above: Performed By: #### C MP, DHIRAJ, LIPA #### [facility] [address] [place], [place] [address] Jasper Neema ALT [Catalytic activity/Vol] 18 U/L Normal 9-52 [facility] Comment on above: Performed By: #### C MP, DHIRAJ, LIPA #### [facility] [address] [place] [id number] Jasper Neema Anion gap [Moles/Vol] 12.7 mmol/L Normal [facility] Comment on above: Performed By: #### C MP, DHIRAJ, LIPA #### [facility] [address] [place] [id number] Jasper Neema AST [Catalytic activity/Vol] 24 U/L Normal 14-36 [facility] Comment on above: Performed By: #### C MP, DHIRAJ, LIPA #### [facility] [address] [place] [address] Jasper Neema Bilirubin [Mass/Vol] 0.4 mg/dL Normal 0.2-1.3 [facility] Comment on above: Performed By: #### C MP, DHIRAJ, LIPA #### [facility] [address] [place] [address] Jasper Neema Calcium [Mass/Vol] 8.5 mg/dL Normal 8.4-10.2 [facility] Comment on above: Performed By: #### C MP, DHIRAJ, LIPA #### [facility] [address] [place] [address] Jasper Neema Chloride [Moles/Vol] 105 mmol/L Normal 98-107 [facility] Comment on above: Performed By: #### C MP, DHIRAJ, LIPA #### [facility] [address] [place] [id number] Jasper Neema CO2 [Moles/Vol] 28.7 mmol/L Normal 22.0-30.0 [facility] Comment on above: Performed By: #### C MP, DHIRAJ, LIPA #### [facility] [address] [place] [address] Jasper Neema Creatinine [Mass/Vol] 0.88 mg/dL Normal 0.52-1.04 [facility] Comment on above: Performed By: #### C MP, DHIRAJ, LIPA #### [facility] [address] [place] [address] Jasper Neema EGFR-AF UZBEK >60 Normal >=60 [facility] Comment on above: Performed By: #### C MP, DHIRAJ, LIPA #### [facility] [address] [place] [address] Jasper Neema EGFR-NON AF UZBEK >60 Normal >=60 [facility] Comment on above: Performed By: #### C MP, DHIRAJ, LIPA #### [facility] [address] [place] [address] Jasper Neema Globulin (S) [Mass/Vol] 3.6 g/dL Normal T [facility] Comment on above: Performed By: #### C MP, DHIRAJ, LIPA #### [facility] [address] [place] [address] Jasper Neema Glucose [Mass/Vol] 105 mg/dL Normal 74-106 [facility] Comment on above: Performed By: #### C MING, DHIRAJ, LIPA #### [facility] [address] [place] [address] Jasper Neema Potassium [Moles/Vol] 4.4 mmol/L Normal 3.4-5.0 [facility] Comment on above: Performed By: #### C MP, DHIRAJ, LIPA #### [facility] [address] [place] [address] Jasper Neema Protein [Mass/Vol] 6.6 g/dL Normal 6.1-8.2 [facility] Comment on above: Performed By: #### C MP, DHIRAJ, LIPA #### [facility] [address] [place] [address] Jasper Neema Sodium [Moles/Vol] 142 mmol/L Normal 137-145 [facility] Comment on above: Performed By: #### C MP, DHIRAJ, LIPA #### [facility] [address] [place] [address] Jasper Neema Urea nitrogen [Mass/Vol] 15.0 mg/dL Normal 7.0-17.0 [facility] Comment on above: Performed By: #### C MP, DHIRAJ, LIPA #### [facility] [address] [place], [place] [id number] Jasper Neema Urea nitrogen/Creatinine [Mass ratio] 17.0 mg/mg Normal [facility] Comment on above: Performed By: #### C MP, DHIRAJ, LIPA #### [facility] [address] [place], [place] [id number] Jasper Neema AMYLASEon 07-13-2021 AMYL <30 Critically low 31-110 [facility] Comment on above: Performed By: #### A MY, CMP, LIPA #### [facility] [address] [place], [place] [id number] Jasper Neema CBC AUTO DIFFon 07-13-2021 BASO # 0.0 103/ul Normal 0.0-0.1 [facility] Comment on above: Performed By: #### C BC #### [facility] [address] [place], [place] [id number] Jasper Neema Basophils/100 WBC (Bld) 0.3 % Normal 0.2-2.0 [facility] Comment on above: Performed By: #### C BC #### [facility] [address] [place], [place] [id number] Japser Neema EO # 0.2 103/ul Normal 0.0-0.7 [facility] Comment on above: Performed By: #### C BC #### [facility] [address] [place], [place] [id number] Jasper Neema Eosinophils/100 WBC (Bld) 1.7 % Normal 0.9-7.0 [facility] Comment on above: Performed By: #### C BC #### [facility] [address] [place], [place] [id number] Jasper Neema Erythrocyte distribution width (RBC) [Ratio] 12.8 % Normal 11.0-15.0 [facility] Comment on above: Performed By: #### C BC #### [facility] [address] [place], [place] [id number] Jasper Neema Hematocrit (Bld) [Volume fraction] 43.7 % Normal 36.0-48.0 [facility] Comment on above: Performed By: #### C BC #### [facility] [address] [place] [address] Jasper Bethea Hemoglobin (Bld) [Mass/Vol] 14.3 g/dL Normal 12.0-16.0 [facility] Comment on above: Performed By: #### C BC #### [facility] [address] [place] [address] Jasperjanet Bethea IG # 0.04 10e3/ul Critically high 0.00-0.03 [facility] Comment on above: Performed By: #### C BC #### [facility] [address] [place] [address] Jasperjanet Bethea IG % 0.4 % Normal 0.0-0.5 [facility] Comment on above: Performed By: #### C BC #### [facility] [address] [place] [address] Jasper Bethea LYMPH # 1.6 103/ul Normal 1.2-3.8 [facility] Comment on above: Performed By: #### C BC #### [facility] [address] [place] [address] Jasper Bethea Lymphocytes/100 WBC (Bld) 14.2 % Critically low 20.5-60.0 [facility] Comment on above: Performed By: #### C BC #### [facility] [address] [place] [address] Jasper Bethea MANUAL DIFF REQ NO Normal [facility] Comment on above: Performed By: #### C BC #### [facility] [address] [place], [place] [id number] Jasper Bethea MCH (RBC) [Entitic mass] 27.6 pg Normal 26.7-34.0 [facility] Comment on above: Performed By: #### C BC #### [facility] [address] [place] [address] Jasper Bethea MCHC (RBC) [Mass/Vol] 32.7 g/dL Normal 29.9-35.2 [facility] Comment on above: Performed By: #### C BC #### [facility] [address] [place], [place] [address] Jasper Bethea MCV (RBC) [Entitic vol] 84.2 fL Normal 81.0-99.0 [facility] Comment on above: Performed By: #### C BC #### [facility] [address] [place] [id number] Jasper Bethea MONO # 0.8 103/ul Normal 0.3-0.8 [facility] Comment on above: Performed By: #### C BC #### [facility] [address] [place] [id number] Jasper Bethea Monocytes/100 WBC (Bld) 7.1 % Normal 1.7-12.0 [facility] Comment on above: Performed By: #### C BC #### [facility] [address] [place], [place] [address] Jasper Fitzgeralden NEUT # 8.3 103/ul Critically high 1.4-6.5 [facility] Comment on above: Performed By: #### C BC #### [facility] [address] [place], [place] [address] Jasper Bethea Neutrophils/100 WBC (Bld) 76.3 % Critically high 43.0-75.0 [facility] Comment on above: Performed By: #### C BC #### [facility] [address] [place], [place] [address] Jasper Bethea Platelet mean volume (Bld) [Entitic vol] 8.5 fL Critically low 9.5-13.5 [facility] Comment on above: Performed By: #### C BC #### [facility] [address] [place] [id number] Jasper Neema PLT 261 103/ul Normal 150-450 [facility] Comment on above: Performed By: #### C BC #### [facility] [address] [place], [place] [address] Jasper Neema RBC 5.19 106/ul Normal 4.20-5.40 [facility] Comment on above: Performed By: #### C BC #### [facility] [address] [place] [address] Jasper Neema WBC 10.9 103/ul Normal 4.0-11.0 [facility] Comment on above: Performed By: #### C BC #### [facility] [address] [place], [place] [address] Jasper Neema LIPASEon 07-13-2021 Lipase [Catalytic activity/Vol] 575.0 U/L Critically high 23.0-300.0 [facility] Comment on above: Performed By: #### A MY, CMP, LIPA #### [facility] [address] [place], [place] [id number] Jasperjanet Fitzgeralden PROF 14(COMP METB)on 021 Albumin [Mass/Vol] 3.1 g/dL Critically low 3.5-5.0 [facility] Comment on above: Performed By: #### A MY, CMP, LIPA #### [facility] [address] [place] [address] Jasper Neema Albumin/Globulin [Mass ratio] 0.9 {ratio} Normal [facility] Comment on above: Performed By: #### A MY, CMP, LIPA #### [facility] [address] [place] [address] Jasper Neema ALP [Catalytic activity/Vol] 103 U/L Normal 38-126 [facility] Comment on above: Performed By: #### A MY, CMP, LIPA #### [facility] [address] [place] [address] Jasper Neema ALT [Catalytic activity/Vol] 22 U/L Normal 9-52 [facility] Comment on above: Performed By: #### A MY, CMP, LIPA #### [facility] [address] [place] [address] Jasper Neema Anion gap [Moles/Vol] 9.2 mmol/L Normal [facility] Comment on above: Performed By: #### A MY, CMP, LIPA #### [facility] [address] [place] [address] Jasper Neema AST [Catalytic activity/Vol] 18 U/L Normal 14-36 [facility] Comment on above: Performed By: #### A MY, CMP, LIPA #### [facility] [address] [place] [address] Jasper Neema Bilirubin [Mass/Vol] 0.5 mg/dL Normal 0.2-1.3 [facility] Comment on above: Performed By: #### A MY, CMP, LIPA #### [facility] [address] [place] [address] Jasper Neema Calcium [Mass/Vol] 8.4 mg/dL Normal 8.4-10.2 [facility] Comment on above: Performed By: #### A MY, CMP, LIPA #### [facility] [address] [place] [address] Jasper Neema Chloride [Moles/Vol] 106 mmol/L Normal 98-107 [facility] Comment on above: Performed By: #### A MY, CMP, LIPA #### [facility] [address] [place] [address] Jasper Neema CO2 [Moles/Vol] 31.9 mmol/L Critically high 22.0-30.0 [facility] Comment on above: Performed By: #### A MY, CMP, LIPA #### [facility] [address] [place] [address] Jasper Neema Creatinine [Mass/Vol] 0.80 mg/dL Normal 0.52-1.04 [facility] Comment on above: Performed By: #### A MY, CMP, LIPA #### [facility] [address] [place] [address] Jasper Neema EGFR-AF UZBEK >60 Normal >=60 [facility] Comment on above: Performed By: #### A MY, CMP, LIPA #### [facility] [address] [place] [address] Jasper Neema EGFR-NON AF UZBEK >60 Normal >=60 [facility] Comment on above: Performed By: #### A MY, CMP, LIPA #### [facility] [address] [place] [address] Jasper Neema Globulin (S) [Mass/Vol] 3.4 g/dL Normal [facility] Comment on above: Performed By: #### A MY, CMP, LIPA #### [facility] [address] [place] [address] Jasper Neema Glucose [Mass/Vol] 113 mg/dL Critically high 74-106 [facility] Comment on above: Performed By: #### A MY, CMP, LIPA #### [facility] [address] [place] [address] Jasper Neema Potassium [Moles/Vol] 4.1 mmol/L Normal 3.4-5.0 [facility] Comment on above: Performed By: #### A MY, CMP, LIPA #### [facility] [address] [place] [address] Jasper Neema Protein [Mass/Vol] 6.5 g/dL Normal 6.1-8.2 [facility] Comment on above: Performed By: #### A MY, CMP, LIPA #### [facility] [address] [place] [address] Jasper Neema Sodium [Moles/Vol] 143 mmol/L Normal 137-145 [facility] Comment on above: Performed By: #### A MY, CMP, LIPA #### [facility] [address] [place] [address] Jasper Neema Urea nitrogen [Mass/Vol] 11.0 mg/dL Normal 7.0-17.0 [facility] Comment on above: Performed By: #### A MY, CMP, LIPA #### [facility] [address] [place] [address] Jasper Neema Urea nitrogen/Creatinine [Mass ratio] 13.8 mg/mg Normal [facility] Comment on above: Performed By: #### A MY, CMP, LIPA #### [facility] [address] [place] [address] Jasper Neema AMYLASEon 07-12-2021 Amylase [Catalytic activity/Vol] 46 U/L Normal 31-110 [facility] Comment on above: Performed By: #### A MY #### [facility] [address] [place] [address] Jasper Bethea ASYMPTOMATIC COVID-19 ANTIGE Non 07-12-2021 EUA Statement SEE BELOW Normal [facility] Comment on above: Result Comment: This [...] sooner. Performed By: #### C VDTB #### [facility] [address] [place] [address] Jasper Neema SARS-CoV-2 (COVID-19) RNA UMESH+probe Ql (Unsp spec) Negative Normal NEGATIVE [facility] Comment on above: Result Comment: Nega tive results are presumptive. They do not preclude infection and should not be used as the sole basis for treatment decisions. Additional confirmatory testing by a molecular method should be considered. Performed By: #### C VDTB #### [facility] [address] [place] [address] Jasper Bethea CBC AUTO DIFFon 07-12-2021 BASO # 0.1 103/ul Normal 0.0-0.1 [facility] Comment on above: Performed By: #### C MADIE LAI #### [facility] [address] [place] [address] Neema Basophils/100 WBC (Bld) 0.5 % Normal 0.2-2.0 [facility] Comment on above: Performed By: #### C MADIE LAI #### [facility] [address] [place] [address] Jasper Neema EO # 0.2 103/ul Normal 0.0-0.7 [facility] Comment on above: Performed By: #### C MADIE LAI #### [facility] [address] [place] [address] Jasper Neema Eosinophils/100 WBC (Bld) 1.6 % Normal 0.9-7.0 [facility] Comment on above: Performed By: #### C MADIE LAI #### [facility] [address] [place] [address] Jasper Neema Erythrocyte distribution width (RBC) [Ratio] 12.7 % Normal 11.0-15.0 [facility] Comment on above: Performed By: #### C MADIE LAI #### [facility] [address] [place] [address] Jasper Neema Hematocrit (Bld) [Volume fraction] 45.7 % Normal 36.0-48.0 [facility] Comment on above: Performed By: #### C MADIE LAI #### [facility] [address] [place] [address] Jasper Neema Hemoglobin (Bld) [Mass/Vol] 15.4 g/dL Normal 12.0-16.0 [facility] Comment on above: Performed By: #### C MADIE LAI #### [facility] [address] [place] [address] Jasper Neema IG # 0.03 10e3/ul Normal 0.00-0.03 [facility] Comment on above: Performed By: #### C MADIE LAI #### [facility] [address] [place] [address] Jasper Neema IG % 0.3 % Normal 0.0-0.5 [facility] Comment on above: Performed By: #### C MADIE LAI #### [facility] [address] [place] [address] Jasper Neema LYMPH # 2.0 103/ul Normal 1.2-3.8 [facility] Comment on above: Performed By: #### C MADIE LAI #### [facility] [address] [place], [place] [id number] Jasper Neema Lymphocytes/100 WBC (Bld) 18.0 % Critically low 20.5-60.0 [facility] Comment on above: Performed By: #### C MING LIPA #### [facility] [address] [place], [place] [id number] Jasper Neema MANUAL DIFF REQ NO Normal [facility] Comment on above: Performed By: #### C MING, LIPA #### [facility] [address] [place] [address] Jasper Neema MCH (RBC) [Entitic mass] 27.6 pg Normal 26.7-34.0 [facility] Comment on above: Performed By: #### C MING, LIPA #### [facility] [address] [place] [address] Jasper Neema MCHC (RBC) [Mass/Vol] 33.7 g/dL Normal 29.9-35.2 [facility] Comment on above: Performed By: #### C MING, LIPA #### [facility] [address] [place] [address] Jasper Neema MCV (RBC) [Entitic vol] 82.0 fL Normal 81.0-99.0 [facility] Comment on above: Performed By: #### C MING, LIPA #### [facility] [address] [place] [address] Jasper Neema MONO # 0.7 103/ul Normal 0.3-0.8 [facility] Comment on above: Performed By: #### C MING, LIPA #### [facility] [address] [place] [address] Jasper Neema Monocytes/100 WBC (Bld) 6.4 % Normal 1.7-12.0 [facility] Comment on above: Performed By: #### C MING, LIPA #### [facility] [address] [place] [address] Jasper Neema NEUT # 8.0 103/ul Critically high 1.4-6.5 [facility] Comment on above: Performed By: #### C MP, LIPA #### [facility] [address] [place], [place] [address] Jasper Bethea Neutrophils/100 WBC (Bld) 73.2 % Normal 43.0-75.0 [facility] Comment on above: Performed By: #### C MP, LIPA #### [facility] [address] [place], [place] [address] Jasper Bethea Platelet mean volume (Bld) [Entitic vol] 8.4 fL Critically low 9.5-13.5 [facility] Comment on above: Performed By: #### C MP, LIPA #### [facility] [address] [place] [address] Jasper Neema PLT 287 103/ul Normal 150-450 [facility] Comment on above: Performed By: #### C MP, LIPA #### [facility] [address] [place] [address] Jasper Neema RBC 5.57 106/ul Critically high 4.20-5.40 [facility] Comment on above: Performed By: #### C MP, LIPA #### [facility] [address] [place], [place] [address] Jasper Bethea WBC 10.9 103/ul Normal 4.0-11.0 [facility] Comment on above: Performed By: #### C MP, LIPA #### [facility] [address] [place] [address] ABD/PELV W CONon 07-12-20 [...] RAMYA IQBAL Date: 2021-07-12 13:00 Normal [facility] Covid-19 PCR (CVDTB)on 06-16 SARS-CoV-2 (COVID-19) RNA UMESH+probe Ql (Unsp spec) Not detected Normal NOT DETECTED [facility] Comment on above: Result Comment: This test is not yet approved or cleared by the [place] FDA. When there are no FDA-approved or cleared tests available, and other criteria are met, FDA can make tests available under an emergency access mechanism called an Emergency Use Authorization (EUA). The EUA for this test is supported by the [employer] of Health and Human Service's (HHS's) declaration [...] SARS-CoV-2. Performed By: #### C VDTB #### [facility] [address] [place] [address] Jasperjanet Bethea URINE PROFILEon 1 Bilirubin Ql (U) Negative Normal NEGATIVE [facility] Comment on above: Performed By: #### C VDTBH #### [facility] [address] [place] [address] Jasper Neema Clarity (U) CLEAR Normal CLEAR [facility] Comment on above: Performed By: #### C VDTB #### [facility] [address] [place] [address] Jasper Neema Color (U) LT. YELLOW Normal YELLOW [facility] Comment on above: Performed By: #### C VDTB #### [facility] [address] [place] [address] Jasper Neema ERUAHD A micrscopic examination will be performed if indicated. Normal [facility] Comment on above: Performed By: #### C VDTB #### [facility] [address] [place] [address] Jasper Neema Glucose Ql (U) Negative Normal NEGATIVE [facility] Comment on above: Performed By: #### C VDTB #### [facility] [address] [place] [address] Jasper Neema Hemoglobin Ql (U) TRACE-INTACT Abnormal NEGATIVE [facility] Comment on above: Performed By: #### C VDTB #### [facility] [address] [place] [address] Jasper Neema Ketones Ql (U) Negative Normal NEGATIVE [facility] Comment on above: Performed By: #### C VDTB #### [facility] [address] [place] [address] Jasper Neema LEUKOCYTES MODERATE Abnormal NEGATIVE [facility] Comment on above: Performed By: #### C VDTB #### [facility] [address] [place] [address] Jasper Neema Nitrite Ql (U) Negative Normal NEGATIVE [facility] Comment on above: Performed By: #### C VDTBH #### [facility] [address] [place] [address] Jasper Neema pH (U) 7.5 [pH] Normal 5-9 [facility] Comment on above: Performed By: #### C VDTBH #### [facility] [address] [place] [address] Jasper Neema SPEC GRAVITY 1.010 Normal 1.005-<=1.025 [facility] Comment on above: Performed By: #### C VDTBH #### [facility] [address] [place] [address] Jasper Bethea UA PROTEIN Negative Normal NEGATIVE/ TRACE [facility] Comment on above: Performed By: #### C VDTBH #### [facility] [address] [place], [place] [id number] Jasper Bethea UR MICRO IND INDICATED Normal [facility] Comment on above: Performed By: #### C NEETAH #### [facility] [address] [place] [address] Jasper Bethea Urobilinogen Qn (U) 0.2 {Tian'U}/dL Normal 0.2 - 1. 0 [facility] Comment on above: Performed By: #### C STEPHANYTBH #### [facility] [address] [place] [address] Jasper Bethea LACTATE/LACTIC ACIDon 2020 Lactate [Moles/Vol] mmol/L Critically low 0.7-2.0 [facility] Comment on above: Performed By: #### C STEPHANYTBH #### [facility] [address] [place] [address] Jasper Bethea LIPASEon 07-12-2021 Lipase [Catalytic activity/Vol] 1780.0 U/L Critically high 23.0-300.0 [facility] Comment on above: Result Comment: test repeated critical value verified Performed By: #### C MADIE LAI #### [facility] [address] [place] [address] Jasper Fitzgeralden PROF 14(COMP METB)on 021 Albumin [Mass/Vol] 3.5 g/dL Normal 3.5-5.0 [facility] Comment on above: Performed By: #### C MADIE LAI #### [facility] [address] [place] [address] Jasper Fitzgeralden Albumin/Globulin [Mass ratio] 0.9 {ratio} Normal [facility] Comment on above: Performed By: #### C MP, LIPA #### [facility] [address] [place], [place] [address] Jasper Neema ALP [Catalytic activity/Vol] 120 U/L Normal 38-126 [facility] Comment on above: Performed By: #### C MP, LIPA #### [facility] [address] [place] [id number] Jasper Neema ALT [Catalytic activity/Vol] 20 U/L Normal 9-52 [facility] Comment on above: Performed By: #### C MP, LIPA #### [facility] [address] [place] [id number] Jasper Neema Anion gap [Moles/Vol] 10.3 mmol/L Normal [facility] Comment on above: Performed By: #### C MP, LIPA #### [facility] [address] [place] [address] Jasper Neema AST [Catalytic activity/Vol] 19 U/L Normal 14-36 [facility] Comment on above: Performed By: #### C MING, LIPA #### [facility] [address] [place] [address] Jasper Neema Bilirubin [Mass/Vol] 0.4 mg/dL Normal 0.2-1.3 [facility] Comment on above: Performed By: #### C MP, LIPA #### [facility] [address] [place] [id number] Jasper Neema Calcium [Mass/Vol] 9.0 mg/dL Normal 8.4-10.2 [facility] Comment on above: Performed By: #### C MP, LIPA #### [facility] [address] [place] [address] Jasper Neema Chloride [Moles/Vol] 101 mmol/L Normal 98-107 [facility] Comment on above: Performed By: #### C MP, LIPA #### [facility] [address] [place] [id number] Jasper Neema CO2 [Moles/Vol] 32.7 mmol/L Critically high 22.0-30.0 [facility] Comment on above: Performed By: #### C MP, LIPA #### [facility] [address] [place] [id number] Jasper Neema Creatinine [Mass/Vol] 0.82 mg/dL Normal 0.52-1.04 [facility] Comment on above: Performed By: #### C MING, LIPA #### [facility] [address] [place] [id number] Jasper Neema EGFR-AF UZBEK >60 Normal >=60 [facility] Comment on above: Performed By: #### C MING, LIPA #### [facility] [address] [place] [address] Jasper Neema EGFR-NON AF UZBEK >60 Normal >=60 [facility] Comment on above: Performed By: #### C MING, LIPA #### [facility] [address] [place] [address] Jasper Neema Globulin (S) [Mass/Vol] 3.9 g/dL Normal [facility] Comment on above: Performed By: #### C MING, LIPA #### [facility] [address] [place] [address] Jasper Neema Glucose [Mass/Vol] 140 mg/dL Critically high 74-106 [facility] Comment on above: Performed By: #### C MING, LIPA #### [facility] [address] [place] [address] Jasper Neema Potassium [Moles/Vol] 4.0 mmol/L Normal 3.4-5.0 [facility] Comment on above: Performed By: #### C MING, LIPA #### [facility] [address] [place] [address] Jasper Neema Protein [Mass/Vol] 7.4 g/dL Normal 6.1-8.2 [facility] Comment on above: Performed By: #### C MING, LIPA #### [facility] [address] [place] [address] Jasper Neema Sodium [Moles/Vol] 140 mmol/L Normal 137-145 [facility] Comment on above: Performed By: #### C MING, LIPA #### [facility] [address] [place] [address] Jasperjanet Bethea Urea nitrogen [Mass/Vol] 14.0 mg/dL Normal 7.0-17.0 [facility] Comment on above: Performed By: #### C MADIE LAI #### [facility] [address] [place] [address] Jasper Bethea Urea nitrogen/Creatinine [Mass ratio] 17.1 mg/mg Normal [facility] Comment on above: Performed By: #### C MADIE LAI #### [facility] [address] [place] [address] Jasper Bethea TROPONIN, HIGH SENSITIVITYon 07-12-2021 HSTROP 7.5 pg/mL Normal 4.0-35.5 [facility] Comment on above: Result Comment: CUT- OFF POINTS HAVE BEEN ESTABLISHED BASED ON THE FOURTH UNIVERSAL DEFINITIONS OF MYOCARDIAL INFARCTION. THE UPPER REFERENCE LIMIT (URL) OF TROPONIN, DEFINED THE 99TH PERCENTILE OF cTnI DISTRIBUTION IN A REFERENCE POPULATION, HAS BEEN CONFIRMED THE DECISION THRESHOLD FOR GA DIAGNOSIS. Performed By: #### C VDTB #### [facility] [address] [place] [address] Jasper Neema URINE MICROSCOPIC ONLYon BACTERIA MODERATE Abnormal NONE SEEN [facility] Comment on above: Performed By: #### C VDTB #### [facility] [address] [place] [address] Jasper Neema Bacteria identified Cx Nom (U) INDICATED Normal [facility] Comment on above: Performed By: #### C VDTBH #### [facility] [address] [place] [address] Jasper Neema CAST NONE SEEN Normal NONE SEEN [facility] Comment on above: Performed By: #### C VDTBH #### [facility] [address] [place], [place] [id number] Jasper Neema Crystals LM Nom (Urine sed) NONE SEEN Normal NONE SEEN [facility] Comment on above: Performed By: #### C VDTBH #### [facility] [address] [place] [address] Jasper Neema Epithelial cells LM Ql (Urine sed) MANY Abnormal NONE SEEN /RARE [facility] Comment on above: Performed By: #### C VDTBH #### [facility] [address] [place], [place] [address] Jasper Neema MUCOUS NONE SEEN Normal NONE SEEN [facility] Comment on above: Performed By: #### C VDTBH #### [facility] [address] [place], [place] [address] Jasper Neema RBC 2-5 Abnormal 0-2 [facility] Comment on above: Performed By: #### C VDTBH #### [facility] [address] [place], [place] [address] Jasper Neema WBC 50-75 Abnormal NONE SEEN [facility] Comment on above: Performed By: #### C VDTBH #### [facility] [address] [place], [place] [address] Jasperjanet Fitzgeralden Vital Signs Date Time Vital Sign Value Performing Clinician Facility 08-08-2024 13:55-0400 Body height 152.4 cm [facility] 08-08-2024 13:55-0400 Body mass index (BMI) [Ratio] 34.9 kg/m2 [facility] 08-08-2024 13:55-0400 Body weight 81.19 kg [facility] 08-08-2024 13:55-0400 Diastolic blood pressure 83 mm[Hg] [facility] 08-08-2024 13:55-0400 Heart rate 84 /min [facility] 08-08-2024 13:55-0400 Systolic blood pressure 154 mm[Hg] [facility] 03-23-2024 08:29-0400 Body height 154.9 cm Rosita CLEMONS Work Phone: [facility] 03-23-2024 08:29-0400 Body mass index (BMI) [Ratio] 33.82 kg/m2 Rosita CLEMONS Work Phone: [facility] 03-23-2024 08:29-0400 Body weight 81.19 kg Rosita CLEMONS Work Phone: [facility] 03-23-2024 08:29-0400 Diastolic blood pressure 92 mm[Hg] [facility] Comment on above: manual 03-23-2024 08:29-0400 Heart rate 93 /min Ros[facility] Nienberg [facility] 03-23-2024 08:29-0400 Respiratory rate 18 /min Ros[facility] Nienberg [facility] 03-23-2024 08:29-0400 SaO2% (BldA) [Mass fraction] 100 % [facility] 03-23-2024 08:29-0400 Systolic blood pressure 172 mm[Hg] Rosita Nienberg [facility] Comment on above: manual 02-17-2024 10:51-0400 Body height 154.9 cm Rosita Nienberg [facility] 02-17-2024 10:51-0400 Body mass index (BMI) [Ratio] 34.2 kg/m2 Rosita Nienberg PA [facility] 02-17-2024 10:51-0400 Body weight 82.1 kg Rosita Nienberg PA [facility] 02-17-2024 10:51-0400 Diastolic blood pressure 82 mm[Hg] Rosita Nienberg PA [facility] 02-17-2024 10:51-0400 Heart rate 93 /min Rosita Nienberg PA [facility] 02-17-2024 10:51-0400 Respiratory rate 16 /min Rosita Nienberg PA [facility] 02-17-2024 10:51-0400 SaO2% (BldA) [Mass fraction] 93 % Rosita Nienberg PA [facility] 02-17-2024 10:51-0400 Systolic blood pressure 180 mm[Hg] Rosita CLEMONS Work Phone: [employer] 08-16-2023 10:45-0400 Body height 152.4 cm Cheyanne Gallardo Other [employer] Other 08-16-2023 10:45-0400 Body mass index (BMI) [Ratio] 34.76 kg/m2 Cheyanne Gallardo Other [employer] Other 08-16-2023 10:45-0400 Body weight 80.74 kg Cheyanne Gallardo Other [employer] Other 08-16-2023 10:45-0400 Diastolic blood pressure 82 mm[Hg] Cheyanne Gallardo Other [employer] Other 08-16-2023 10:45-0400 Systolic blood pressure 152 mm[Hg] Cheyanne Gallardo Other [employer] Other 04-27-2023 10:45-0400 Body height 152.4 cm Cheyanne Gallardo Other [employer] Other 04-27-2023 10:45-0400 Body mass index (BMI) [Ratio] 34.76 kg/m2 Cheyanne Gallardo Other [employer] Other 04-27-2023 10:45-0400 Body weight 80.74 kg Cheyanne Gallardo Other [employer] Other 04-27-2023 10:45-0400 Diastolic blood pressure 80 mm[Hg] Cheyanne Gallardo Other [employer] Other 04-27-2023 10:45-0400 Systolic blood pressure 154 mm[Hg] Cheyanne Gallardo Other [employer] Other 03-28-2023 11:17-0400 Heart rate 98 /min MD Cheyanne Gallardo Work Phone: [facility] 03-28-2023 11:17-0400 Respiratory rate 20 /min MD Cheyanne Gallardo Work Phone: [facility] 03-28-2023 11:17-0400 SaO2% (BldA) [Mass fraction] 97 % MD Cheyanne Gallardo Work Phone: [facility] 03-28-2023 11:10-0400 Diastolic blood pressure 60 mm[Hg] MD Cheyanne Gallardo Work Phone: [facility] 03-28-2023 11:10-0400 Systolic blood pressure 159 mm[Hg] MD Cheyanne Gallardo Work Phone: [facility] 03-28-2023 09:56-0400 Body height 154.94 cm MD Cheyanne Gallardo Work Phone: [facility] 03-28-2023 09:56-0400 Body temperature 97 [degF] MD Cheyanne Gallardo Work Phone: [facility] 03-28-2023 09:56-0400 Body weight 81.6 kg MD Cheyanne Gallardo Work Phone: [facility] 10-26-2022 15:00-0500 Body height 154.94 cm Amanda Blades Other [employer] [facility] [employer] Other 10-26-2022 15:00-0500 Body mass index (BMI) [Ratio] 33.44 kg/m2 Amanda Blades Other [employer] [facility] [employer] Other 10-26-2022 15:00-0500 Body weight 80.29 kg Amanda Blades Other [employer] [facility] [employer] Other 10-10-2022 10:17-0500 Body height 154.94 cm MD Lindy Rodriguez Work Phone: [facility] 10-10-2022 10:17-0500 Body weight 79.7 kg MD Lindy Rodriguez Work Phone: [facility] 10-10-2022 10:13-0500 Body temperature 98.5 [degF] MD Lindy Rodriguez Work Phone: [facility] 10-10-2022 10:13-0500 Diastolic blood pressure 98 mm[Hg] MD Lindy Rodriguez Work Phone: [facility] 10-10-2022 10:13-0500 Heart rate 73 /min MD Lindy Rodriguez Work Phone: [facility] 10-10-2022 10:13-0500 Respiratory rate 20 /min MD Lindy Rodriguez Work Phone: [facility] 10-10-2022 10:13-0500 SaO2% (BldA) [Mass fraction] 93 % MD Lindy Rodriguez Work Phone: [facility] 10-10-2022 10:13-0500 Systolic blood pressure 152 mm[Hg] MD Lindy Rodriguez Work Phone: [facility] Encounters Encounter Date Encounter Type Care Provider Facility Start: 12-07-2024 End: 12-07-2024 ambulatory [facility] Work Phone: Start: 12-07-2024 End: 12-07-2024 Patient encounter procedure [facility] Work Phone: Start: 08-17-2024 End: 08-17-2024 ambulatory [facility] Work Phone: Start: 08-17-2024 End: 08-17-2024 Patient encounter procedure [facility] Work Phone: Start: 08-09-2024 Non-patient / Non-visit [facility] Work Phone: Start: 08-08-2024 End: 08-08-2024 ambulatory [facility] Work Phone: Start: 08-08-2024 End: 08-08-2024 Patient encounter procedure [facility] Work Phone: Start: 03-23-2024 End: 03-23-2024 ambulatory ROSITA S [facility] Start: 03-23-2024 End: 03-23-2024 Office outpatient visit 15 minutes Rosita Castillo PA Work Phone: [facility] Comment on above: Cervical spondylosis without myelopathy (Primary Dx) Start: 03-04-2024 End: 03-04-2024 ambulatory DAIANA ROBLESKris [facility] Start: 03-03-2024 End: 03-04-2024 ambulatory CORRINE Carrion KOROMA [facility] Start: 02-17-2024 End: 02-17-2024 ambulatory ROSITA S [facility] Start: 02-17-2024 End: 02-17-2024 Office outpatient visit 15 minutes Rosita Castillo PA Work Phone: [facility] Comment on above: Cervical spondylosis without myelopathy (Primary Dx) Start: 09-08-2023 End: 09-08-2023 ambulatory Thomas Calles Other [employer] Other Start: 09-08-2023 Telephone encounter Thomas RAMIREZ [employer] Start: 08-30-2023 End: 08-30-2023 ambulatory Cheyanne Gallardo Other [employer] Other Start: 08-30-2023 Telephone encounter Cheyanne Gallardo [facility] Start: 08-23-2023 End: 08-23-2023 ambulatory Cheyanne Gallardo Other [employer] Other Start: 08-23-2023 Telephone encounter Cheyanne Gallardo [facility] Start: 08-17-2023 End: 08-17-2023 ambulatory Cheyanne Gallardo Other [employer] Other Start: 08-17-2023 Telephone encounter Cheyanne Gallardo [facility] Start: 08-16-2023 End: 08-16-2023 ambulatory Cheyanne Gallardo Other [employer] Other Start: 08-16-2023 Office outpatient vi sit 25 minutes Cheyanne Gallardo [facility] Start: 05-14-2023 End: 05-14-2023 ambulatory Cheyanne Gallardo Other [employer] Other Start: 05-14-2023 Telephone encounter Cheyanne Gallardo [facility] Start: 04-27-2023 End: 04-27-2023 ambulatory Cheyanne Gallardo Other [employer] Other Start: 04-27-2023 Office outpatient vi sit 15 minutes Cheyanne Gallardo [facility] Start: 03-28-2023 End: 03-28-2023 Emergency department patient visit Shawn Camarillo Facility:[facility] Start: 03-28-2023 End: 03-28-2023 Emergency department patient visit MD Cheyanne Gallardo Work Phone: [facility] Work Phone: Start: 01-11-2023 End: 01-11-2023 ambulatory KACI PATIÑO . Facility:[facility] Start: 10-26-2022 End: 10-26-2022 ambulatory Amanda Srinivasan Other [employer] Other Start: 10-26-2022 Office outpatient ne w 45 minutes Amanda Bladeranjit [facility] Start: 10-16-2022 End: 10-17-[address] CHEYANNE GALLARDO Facility:[facility] Start: 10-10-2022 End: 10-10-2022 Emergency department patient visit Lindy Rodriguez Facility:[facility] Start: 10-10-2022 End: 10-10-2022 Emergency department patient visit MD Lindy Rodriguez Work Phone: [facility] Start: 10-01-2022 End: 10-01-2022 [...] Adult BMI Screening Adult BMI Screen ing [facility] Start: 03-23-2025 Tobacco Screening Tobacco Screening [facility] Start: 02-16-2025 Adult BMI Screening Adult BMI Screen ing [facility] Start: 02-16-2025 Tobacco Screening Tobacco Screening [facility] Start: 07-16-2024 Influenza vaccination Influenza Vacc ine [facility] Start: 05-04-2024 End: 05-04-2024 Patient encounter procedure 05/04/2024 1:30 PM EDT Office Visit [facility] [address] [place] [address] Rosita Castillo PA [address] [place] [address] [facility] Start: 03-23-2024 End: 03-23-2024 Patient encounter procedure 03/23/2024 8:45 AM EDT Office Visit [facility] [address] [place] [id number] Rosita Castillo PA [address] [place] [address] [facility] Start: 03-03-2024 End: 03-03-2024 Admission to same day surgery center 03/03/2024 12:39 PM EDT - 03/03/2024 12:45 PM EDT Surgery [facility] [address] [place] [id number] Corrine Koroma MD [address] [facility] [id number] INJECTION BLOCK NERVE MEDIAL BRANCH: bilat C23 34 [37269 (CPT )] [facility] Comment on above: INJECTION BLOCK NERV E MEDIAL BRANCH: bilat C23 34 [60443 (CPT )] Start: 03-03-2024 End: 03-03-2024 Njx dx/ther agt pvrt facet jt crv/thrc 1 level INJECTION BLOCK NERVE MEDIAL BRANCH Cervical spondylosis without myelopathy 03/03/2024 12:39 PM EDT [facility] Start: 03-03-2024 Subsequent hospital visit by physician 03/03/2024 12:39 PM EDT Hospital Encounter [facility] [address] [place] [id number] Corrine Koroma MD [address] [place], [place] [id number] [facility] Start: 07-16-2023 COVID-19 Vaccine ( season) COVID-19 Vaccine ( season) [facility] Start: 2009 Fall Risk Screening Fall Risk Screen ing [facility] Start: 1994 Administration of varicella zoster vaccine Zoster (Shingles) Vaccine (1 of 2) [facility] Start: 1963 DTaP,Tdap and Td Vac cines (1 - Tdap) DTaP,Tdap and Td Vaccines (1 - Tdap) [facility] Start: 1962 Adult BMI Follow Up Plan Adult BMI Follow Up Plan [facility] Start: 1956 Depression Screening Depression Scre ening [facility] Start: 1944 Medicare Annual Well ness Visit Medicare Annual Wellness Visit [facility] Start: 1944 Tobacco Counseling Tobacco Counselin g [facility] Comprehensive metabo lic 2000 panel - Serum or Plasma [facility] Patient Education [facility] Work Phone: Patient referral [facility] Work Phone: [facility] Immunizations Immunization Date Immunization Notes Care Provider Fa cility 08-17-2024 influenza, high dose seasonal, preservative-free [facility] 08-03-2023 influenza virus vaccine, unspecified formulation [facility] 08-03-2023 influenza, high dose seasonal, preservative-free Cheyanne Gallardo Other [employer] Other 08-05-2022 influenza virus vaccine, split virus (incl. purified surface antigen) Cheyanne Gallardo Other [employer] Other 08-05-2022 influenza virus vaccine, unspecified formulation Rosita CLEMONS Work Phone: [facility] 08-13-2021 influenza virus vaccine, split virus (incl. purified surface antigen) Cheyanne Gallardo Other [employer] Other 08-13-2021 influenza virus vaccine, unspecified formulation [facility] 07-31-2020 influenza virus vaccine, split virus (incl. purified surface antigen) Cheyanne Sami Other [employer] Other 07-31-2020 influenza virus vaccine, unspecified formulation [facility] 09-05-2018 influenza virus vaccine, split virus (incl. purified surface antigen) Cheyanne Sami Other [employer] [facility] [employer] Other 09-05-2018 influenza virus vaccine, unspecified formulation [facility] Payers Date Payer Category Payer Medicare MEDICARE MEDICAR E PART A & B [id number] 2009-Present [phone] [address] [place] [address] [id number] 2009 Unknown ANTHEM BCBS OUT OF STATE TRADITIONAL [id number] 2009-Present [phone] [address] [place] [address] [id number] 1959 Medicare [id number] 1959 Self-pay 1959 Unknown [id number] 1959 Unknown [id number] 1959 Unknown [id number] 1944 Unknown [id number] 1944 Unknown [id number] 1944 Unknown [id number] 2.16.840.1.700053.3.579.2.5 93 1945 Unknown [id number] 2.16.840.1.735578.3.579.2.5 93 1945 Unknown [id number] 2.16.840.1.266411.3.579.2.5 93 1944 Unknown [id number] 2.16.840.1.123378.3.579.2.5 93 1944 Unknown [id number] 2.16.840.1.808372.3.579.2.5 93 1944 Unknown [id number] 2.16.840.1.667138.3.579.2.5 93 1944 Unknown [id number] 2.16.840.1.302034.3.579.2.5 93 1944 Unknown [id number] 2.16.840.1.975001.3.579.2.1 286 1945 Unknown [id number] 2.16.840.1.605154.3.579.2.1 286 1945 Unknown [id number] 2.16.840.1.555561.3.579.2.1 286 1944 Unknown [id number] 2.16.840.1.664414.3.579.2.1 286 1944 Unknown [id number] 2.16.840.1.949555.3.579.2.1 286 1945 Unknown [id number] 2.16.840.1.462034.3.579.2.1 286 Medicare Cigna Medicare Supplemental [id number] Unknown [id number] 2.16.840.1.421268.3.579.2.5 31 Unknown [id number] 2.16.840.1.971491.3.579.2.5 31 Unknown [id number] Social History Date Type Detail Facility Start: 10-10-2022 Tobacco smoking stat us NHIS Ex-smoker (finding) [facility] Start: 1945 Sex Assigned At Female F [facility] Start: 12-26-2020 End: 03-23-2024 Sex Assigned At [facility] [employer] Other Start: 03-28-2023 End: 03-28-2023 Tobacco smoking status NHIS Smoker (finding) [facility] Start: 12-07-2024 Sex Female (finding) [facility] Start: 02-17-2024 End: 03-23-2024 Tobacco smoking status CAIS Smokes tobacco daily [facility] History of tobacco use Cigarette Smoker [facility] Start: 02-17-2024 End: 03-23-2024 Tobacco use and exposure Smokeless tobacco non-user [facility] Start: 02-17-2024 End: 03-23-2024 Alcoholic beverage intake Lifetime non-drinker (finding) [facility] Start: 12-26-2020 End: 03-23-2024 History of Social function [facility] Childcare Unknown [facility] Start: 1945 Sex assigned at Not on file [facility] Clinical Notes 05-08-2022 to 12-07-2024 Note Date & Type Note Facility 12-07-2024 Evaluation note Diagnosis Onset Date Resolution Bronchitis acute December 07, 2024 9:16am [facility] Work Phone: [phone]) 531-846705-09-2024 History of Present illness Narrative* KACI Becerra - 03/23/2024 8:45 AM EDT [facility] [address] [place] [address] Patient: Nya Jiang Sex: female : 1945 [...] and biofreeze with some relief. PT at [facility] (Dec 2022), HEP from PT [...] 03/12/2023 Performed by Corrine Koroma MD at [facility] INJECTION BLOCK NERVE MEDIAL BRANCH: bilat C 2/3, 3/4 Bilateral 03/03/2024 Performed by Corrine Koroma MD at [facility] NECK SURGERY 2012 Allergies Allergen Reactions [...] Interpersonal Safety: Unknown (01/06/2024) Received from [facility] [place] [facility] Environment Fear of [...] KACI Becerra 03/23/24 1205 documented in this encounterNorth Country HospitalZenbox [id number] History of Present illness Narrative* KACI Becerra - 02/17/2024 10:45 AM EDT [facility] [address] [place] [address] Patient: Nya Jiang Sex: female : 1945 [...] and biofreeze with some relief. PT at [facility] (Dec 2022), HEP from PT currently. The treatment provided mild relief. The effect of pain on patient's ADLS: Mild Impairment. Past Medical History: Diagnosis Date Chronic pain disorder GERD (gastroesophageal reflux disease) Hyperlipidemia Hypertension Joint pain Past Surgical History: Procedure Laterality Date HERNIA REPAIR HYSTERECTOMY INJECTION BLOCK NERVE MEDIAL BRANCH: bilat C 12/18 01/16 Bilateral 03/12/2023 Performed by Corrine Koroma MD at [facility] NECK SURGERY 2011 Allergies Allergen Reactions [...] KACI Becerra 02/17/24 1327 documented in this encounterNorth Country HospitalZenbox [id number] Instructions* Patient Instructions* Soila Callahan CNA - [...] the nearest emergency room. [facility]* Encounter Date Diagnosis Assessment Notes Treatment Notes Treatment Clinical Notes Aug, Epigastric pain (ICD-10 - R10.13) Aug, Bloating (ICD-10 - R14.0) Aug, Nausea (ICD-10 - R11.0) [facility] Other 10-09-2023 Evaluation note* Encounter Date Diagnosis Assessment Notes Treatment Notes Treatment Clinical Notes Aug, Epigastric pain (ICD-10 - R10.13) Aug, Right upper quadrant abdominal pain (ICD-10 - R10.11) [facility] Other 10-03-2023 Evaluation note* Encounter Date Diagnosis Assessment Notes Treatment Notes Treatment Clinical Notes Aug, Abnormal urinalysis (ICD-10 - R82.90) [facility] Other 10-02-2023 Evaluation note* Encounter Date Diagnosis [...] (ICD-10 - R30.0) Assess for possible UTI [facility] Other 06-13-2023 Evaluation note* Encounter Date Diagnosis Assessment Notes Treatment Notes Treatment Clinical Notes Apr, Chronic fatigue (ICD-10 - R53.82) Pt agrees to labs to f/o metabolic causes. Discussed stress relief, family support and help with husbands medical problems. [facility] Other 12-12-2022 Evaluation note* Encounter Date Diagnosis Assessment Notes Treatment Notes Treatment Clinical Notes Oct, Neck pain (ICD-10 - M54.2) [facility] Other 10-27-2022 NotePROCEDURE: XR TOES LT MIN [...] Electronically authenticated by: RAMYA IQBAL Date: 2022-09-10 06:16[facility]06-24-2022 NotePROCEDURE: XR WRIST LT MIN 3 [...] authenticated by: RAMYA IQBAL Date: 2022-05-08 13:14[facility]No assessment information availableMetrohealth [facility] Work Phone: Evaluation noteNo InformationNortLehigh Valley Hospital - Pocono [email or web address] Other Evaluation note* Diagnosis Onset Date Resolution Status Anemia acute Essential (primary) hypertension acute Fatigue acute [facility] Work Phone: Evaluation note* Diagnosis Cervical spondylosis without myelopathy- Primary documented in this encounter [facility] SystemEvaluation note* Diagnosis Cervical spondylosis without myelopathy- Primary Cervical spondylosis without myelopathy- Primary Cervical spondylosis without myelopathy documented in this encounter [facility] SystemHistory general Narrative - Reported* Type Description Date Medical History DEPRESSION Medical History HTN Medical History HYPERLIPEMIA Medical History COPD Surgical History BREAST REDUCTION Surgical History HERNIA REPAIR X2 Surgical History HYSTERECTOMY Surgical History NECK SURGERY [facility] [email or web address] Other History general Narrative - Reported* Type [...] NECK SURGERY Hospitalization History SEE SURGICAL HX [facility] [email or web address] Other Hospital Discharge instructions Additional Instructions Follow-up with neurosurgeon and or primary care doctor.[facility] Work Phone: Hospital Discharge instructions Additional Instructions Follow-up with your primary care doctor Return to ED if develop worsening symptoms or concernsUniversity [facility]als [facility] Work Phone: InstructionsNot on filedocumented in this encounter [employer] Summary Purpose Family History Relationship Condition [...] C23 [address] Rosita Castillo PA [address] [place] [address] Referral ID Status Reason Start Date Expiration Date V isits Requested Visits Authorized [id number] Pending Review 02/17/2024 02/16/2025 1 1 Reason *Waiting for appt Last OV, CT and lab results. Diagnosis 1 Epigastric pain (R10 .13) Referral Organization [facility] C linprimitivo Referring Provider First Name Cheyanne Referring Provider Last Name Sami Referring Provider Specialty Family [facility] cine Referred Organization [facility] Gastroenterolo gy Referred Provider Loan Sebastian Referred Address [address] [place] [id number] Referred Provider Specialty Gastroentero logy Referral Priority Routine General Notes Cheryl Fontanez 03:03:56 PM >received today, attachments made, sent P2P Additional Source Comments INFORMATION SOURCE (unrecogn ized section and content) DATE CREATED AUTHOR 08/01/2021 [facility] DATE CREATED AUTHOR AUTHOR'S ORGANIZ ATION 03/24/2023 [facility] DATE CREATED AUTHOR AUTHOR'S ORGANIZ ATION 03/29/2023 [facility] DATE CREATED AUTHOR AUTHOR'S ORGANIZ ATION 03/25/2024 [facility] Care Teams (unrecognized sec tion and [...] December 07, 2024 End: December 07, 2024 Wire Spinner Relationship Specialty Start Date End Date Cheyanne Gallardo MD [address] [place] [address] PCP - General Family Medicine 10/25/19 Wire Spinner Relationship Specialty Start Date End Date Cheyanne Gallardo MD [address] [id number] PCP - General Family Medicine 10/25/19 Goals [...] BE BASED ON THE PRIMARY CLINICAL RECORDS. [facility] [employer] [facility]. provides no warranty or guarantee of the accuracy or completeness of information in this document.
--- NOTE | 2025-01-20 15:32 | ED.GENADUL1 ---
HPI HPI - General Adult General Chief complaint: Abdominal Pain Stated complaint: RT LEG PAIN Time Seen by Provider: 01/20/25 15:15 Source: patient and family Mode of arrival: Wheelchair Limitations: no limitations History of Present Illness HPI narrative: Patient is a 79-year-old female who returns to the emergency department for right hip and leg pain. Patient was seen in this emergency department yesterday for abdominal pain. She had a CT scan of the abdomen and pelvis with IV contrast. Scan was unremarkable and her labs were normal. She was treated with an enema for suspected constipation and had results. She did not feel any MiraLAX for home. She went to urgent care today because she developed worsening pain in the right hip into the right leg overnight. Apparently the provider at urgent care instructed them to return to the emergency department for a CT scan with contrast despite the fact that the patient had an unremarkable CT abd/pelvis yesterday. Patient's daughter accompanies her, the patient has not had any falls or injuries. She denies any numbness or tingling. No swelling or bruising to the right leg. She reports pain with ambulation. No medications taken prior to arrival. She has a history of chronic low back pain intermittently. She has no significant abdominal pain today. No fevers or vomiting. She states she has had ongoing burning with urination for several weeks. Related Data Home Medications ?Medication ?Instructions ?Recorded ?Confirmed atorvastatin 80 mg tablet 80 mg PO DAILY 01/19/25 01/20/25 losartan 100 mg tablet 100 mg PO DAILY 01/19/25 01/20/25 Previous Rx's ?Medication ?Instructions ?Recorded methocarbamol 500 mg tablet 500 mg PO Q8H PRN muscle pain #15 01/20/25 tabs methylprednisolone 4 mg tablets in See Rx Instructions .Route 01/20/25 a dose pack (Medrol (Cain)) .COMPLEX #21 ea ondansetron 4 mg disintegrating 4 mg PO Q6H PRN nausea and 01/20/25 tablet vomiting #12 tabs tramadol 50 mg tablet 50 mg PO Q6H PRN pain 3 days #12 01/20/25 tabs Allergies Allergy/AdvReac Type Severity Reaction Status Date / Time nylon Allergy Unknown Hives Verified 01/19/25 13:33 Penicillins Allergy Unknown Hives Verified 01/19/25 13:33 Opioid HPI Opioid Management Most Recent Opioid Data: Last Pain Scale 8 01/13/24 08:41 01/13/24 Last ED Pain Assessment 01/19/25 14:37 Last MAR Pain Assessment 01/20/25 15:40 Review of Systems ROS Constitutional Denies: fever or chills Ears, nose, mouth, and throat Denies: throat pain or nasal congestion Cardiovascular Denies: chest pain Respiratory Denies: shortness of breath Gastrointestinal Denies: abdominal pain, nausea, vomiting or diarrhea Genitourinary Reports: painful urination Musculoskeletal Reports: extremity pain, joint pain and limited range of motion; Denies: back pain Integumentary/Breast Denies: rash Neurological Denies: numbness in extremities or weakness in extremities Hematologic/Lymphatic Denies: easy bruising or easy bleeding PFSH PFSH Social History Smoking status: Current every day smoker Little interest or pleasure in doing things: not at all Feeling down, depressed, or hopeless: not at all Exam Narrative Exam Narrative: Gen.: Awake, alert, in no distress Head: Normocephalic, atraumatic ENT: Moist mucous membranes Respiratory: No respiratory distress, lungs clear bilaterally Cardio: Regular rate and rhythm Gastrointestinal: Abdomen is soft, nondistended and nontender to palpation Back: No bony point tenderness of the T-spine or L-spine Extremities: Moves extremities equally, pain with hip flexion in the right lower extremity, no bony point tenderness of the right lower extremity Psych: Normal mood and affect Neuro: No focal neuro deficit Skin: Warm, dry, intact Constitutional Vital Signs, click to edit/add: Last Vital Signs Temp 98.3 F 01/20/25 14:41 Pulse 83 01/20/25 14:41 Resp 14 01/20/25 14:41 BP 170/87 H 01/20/25 14:41 Pulse Ox 92 L 01/20/25 14:41 O2 Del Method Room Air 01/20/25 14:41 Course Vital Signs Vital signs: Vital Signs Temperature 98.3 F 01/20/25 14:41 Pulse Rate 83 01/20/25 14:41 Respiratory Rate 14 01/20/25 14:41 Blood Pressure 170/87 H 01/20/25 14:41 Pulse Oximetry 92 L 01/20/25 14:41 Oxygen Delivery Method Room Air 01/20/25 14:41 Temperature 98.3 F 01/20/25 14:41 Pulse Rate 83 01/20/25 14:41 Respiratory Rate 14 01/20/25 14:41 Blood Pressure 170/87 H 01/20/25 14:41 Pulse Oximetry 92 L 01/20/25 14:41 Oxygen Delivery Method Room Air 01/20/25 14:41 Medical Decision Making MDM Narrative Medical decision making narrative: Treated with tramadol and Robaxin with improvement. She is sitting comfortably and smiling on reevaluation. X-rays of the femur with no evidence of acute process. Patient and family were given reassurance and education that she had a CT scan of the abdomen and pelvis yesterday showing no evidence of kidney or bladder abnormalities. Her urine specimen today shows trace leukocytes so we will send for culture although a culture was not indicated. Abdomen is soft and benign today with stable vital signs. Patient is discharged home to follow-up with PCP. Medrol Dosepak, tramadol and Robaxin given for home with Zofran as needed. She was encouraged to continue the MiraLAX she was prescribed yesterday. Return to the ER if symptoms change or worsen. SUPERVISED APC VISIT, PHYSICIAN ATTESTATION: Based on the medical record the care appears appropriate. ? Medical Records Medical records reviewed: Yes I reviewed the patient's medical records Lab Data Lab results reviewed: Yes I reviewed the patient's lab results Labs: Lab Results 01/20/25 Range/Units 15:45 Urine Color Lt. yellow (YELLOW) Urine Clarity Clear (CLEAR) Urine pH 5.5 (5.0-9.0) Ur Specific [place] 1.020 (1.005-1.025) Urine Protein Negative (NEG/TRACE) mg/dL Urine Glucose (UA) Negative (NEGATIVE) mg/dL Urine Ketones Negative (NEGATIVE) mg/dL Urine Occult Blood Trace-i (NEGATIVE) Urine Nitrite Negative (NEGATIVE) Urine Bilirubin Negative (NEGATIVE) Urine Urobilinogen 0.2 (0.2-1.0) EU/dL Ur Leukocyte Esterase Trace A (NEGATIVE) Urine RBC 2-5 A (0-2) #/HPF Urine WBC 0-2 A (NONE SEEN) #/HPF Ur Squamous Epith Cells Few A (NONE/RARE) #/LPF Urine Crystals None seen (None Seen) #/HPF Urine Bacteria Trace A (NONE SEEN) #/HPF Urine Casts None seen (NONE SEEN) #/LPF Urine Mucus None seen (NONE SEEN) Ur Culture Indicated? No Imaging Data XR Femur: Attestation: I have reviewed the pertinent imaging results. Discharge Plan Discharge Chief Complaint: Abdominal Pain Clinical Impression: Acute pain of right hip, Pain in right leg Patient Disposition: Home, Self-Care Time of Disposition Decision: 16:42 Condition: Good Prescriptions / Home Meds: New methylprednisolone [Medrol (Cain)] 4 mg tablets,dose pack See Rx Instructions .ROUTE .COMPLEX Qty: 21 0RF Rx Instructions: Taper as directed methocarbamol 500 mg tablet 500 mg PO Q8H PRN (Reason: muscle pain) Qty: 15 0RF tramadol 50 mg tablet 50 mg PO Q6H PRN (Reason: pain) 3 Days Qty: 12 0RF Rx Instructions: ICD 10:M79.604 ondansetron 4 mg tablet,disintegrating 4 mg PO Q6H PRN (Reason: nausea and vomiting) Qty: 12 0RF No Action atorvastatin 80 mg tablet 80 mg PO DAILY losartan 100 mg tablet 100 mg PO DAILY Print Language: Kinyarwanda Instructions: Hip Pain (ED), Leg Pain (ED) Referrals: Cheyanne Hernandez MD [Primary Care Provider] - 1 week
[2025-01-20] MEDS: TRAMADOL HCL 50 MG TABLET PO (15:40)
[2025-01-20] MEDS: METHOCARBAMOL 500 MG TABLET PO (15:40)
[2025-01-20 15:55] LABS: Bilirubin Urine NEGATIVE (NEGATIVE); Blood Urine TRACE-I (NEGATIVE); Clarity Urine CLEAR (CLEAR); Color Urine LT. YELLOW (YELLOW); Glucose Urine UA NEGATIVE (NEGATIVE); Ketones Urine NEGATIVE (NEGATIVE); Leukocyte Esterase Urine TRACE (NEGATIVE); Nitrite Urine NEGATIVE (NEGATIVE); Protein Urine NEGATIVE (NEG/TRACE); Urobilinogen Urine 0.2 EU/dL (0.2-1.0); pH Urine 5.5 (5.0-9.0)
[2025-01-20 16:01] LABS: Bacteria Urine TRACE #/HPF (NONE SEEN); Cast Seen? NONE SEEN #/LPF (NONE SEEN); Crystals Seen? None Seen #/HPF (None Seen); Mucus Urine NONE SEEN (NONE SEEN); Squamous Epithelial Cell Urine FEW #/LPF (NONE/RARE); Urine Culture Indicated NO; WBC Urine 0-2 #/HPF (NONE SEEN)
== END 2025-01-20 16:58 | disposition home or self-care (01) ==
PROVIDERS: Physician Assistant; Emergency Provider Emergency Medicine; PCP Family Medicine
DX: M79.604 Pain in right leg (principal); M25.551 Pain in right hip; R30.9 Painful micturition, unspecified; F17.200 Nicotine dependence, unspecified, uncomplicated
CPT/HCPCS: 73552; 81001; 87086; 99284

== ENCOUNTER 2025-06-25 06:50 | Outpatient (OUT) | payer MEDICARE, BC, SELFPAY ==
--- OUTSIDE RECORDS SUMMARY | 2025-06-25 06:54 | XMS_ITS | CCD ---
Author Organization [facility] Care Team Providers Care Director Corporate Name Role Phone BALBINA, DR REDDY Attending Unavailable BALBINA, DR REDDY Consulting Unavailable BALBINA, DR REDDY Admitting Unavailable ZIVICER, DR RAMYA Bernal Consulting Unavailable PAY, DR FAJARDO Consulting Unavailable MD Lindy Rodriguez Primary Care Provider MARICARMEN Rolle Emergency Provider [phone] Amanda Srinivasan Unavailable SAMI, DR PARAS Carrion Primary Care Unavailable ZIEBLISANDRO, DR RAMYA Bernal Consulting Unavailable GALLARDO, DR PARAS Carrion Admitting Unavailable GALLARDO, DR PARAS Carrion Attending Unavailable GALLARDO, DR PARAS Carrion Consulting Unavailable GALLARDO, DR PARAS Carrion Attending Unavailable ZIEBER, DR RAMYA Bernal Consulting Unavailable GALLARDO, DR PARAS Carrion Primary Care Unavailable GALLARDO, DR PARAS Carrion Admitting Unavailable GALLARDO, DR PARAS Carrion Consulting Unavailable GALLARDO, DR PARAS Carrion Primary Care Unavailable JERMAN DOMINGUEZ Admitting Unavailable JERMAN DOMINGUEZ Attending Unavailable JERMAN DOMINGUEZ Consulting Unavailable GALLARDO, DR PARAS Carrion Attending Unavailable WEST, DR CRISTIANE Luu Consulting Unavailable GALLARDO, DR PARAS Carrion Primary Care Unavailable GALLARDO, DR PARAS Carrion Admitting Unavailable GALLARDO, DR PARAS Carrion Consulting Unavailable GALLARDO, DR PARAS Carrion Primary Care Unavailable JERMAN DOMINGUEZ Attending Unavailable JERMAN DOMINGUEZ Admitting Unavailable WEST, DR CRISTIANE Luu Consulting Unavailable SUBHASH PETERSON Admitting Unavailable SUBHASH PETERSON Attending Unavailable SAMI, DR PARAS Carrion Primary Care Unavailable SUBHASH PETERSON Consulting Unavailable KACI ANAYA Consulting UnavailANIVAL Hernandez Admitting Unavailable ANIVAL WALL Attending Unavailable SAMI, DR PARAS Carrion Primary Care Unavailable CELENA WATSON Consulting Unavaila ble GALLARDO, DR PARAS Carrion Primary Care Unavailable GALLARDO, DR PARAS Carrion Admitting Unavailable GALLARDO, DR PARAS Carrion Attending Unavailable MD Paras Gallardo Primary Care Provider RabiaDO jorge luis Shawn Hardy Emergency Provider Paras Gallardo Unavailable Thomas Calles Unavailable Paras Gallardo MD Primary Care Provider Paras Gallardo MD Primary Care Provider Isela Cardenas PA-C Attending Provider No Jones MD Emergency Provider Carole Kauffman MD Admit Provider Carole Kauffman MD Attending Provider Pushpa Brock MD Attending Provider Paras Gallardo MD Primary Care Provider Joana Manzo APRN Attending Provider Isela Cardenas Admitting Unavailable Isela Cardenas Attending Unavailable Paras Gallardo E Primary Care Unavailable Joana Manzo Admitting Unavailable Joana Manzo Attending Unavailable Sami, Paras E Primary Care Unavailable Gallardo, Paras E Primary Care Unavailable Carole Kauffman Admitting Unavailable Pushpa Brock Attending Unavailable ROSITA BORGES Attending Unavailable SAMI, PARAS E Referring Unavailable GALLARDO, PARAS E Primary Care Unavailable KOROMA, KAMAR E Admitting Unavailable KOROMA, KAMAR E Attending Unavailable SAMI, PARAS E Referring Unavailable GALLARDO, PARAS E Primary Care Unavailable KOROMA, KAMAR E Attending Unavailable KOROMA, KAMAR E Referring Unavailable GALLARDO, PARAS E Primary Care Unavailable ROSITA BORGES Attending Unavailable SAMI, PARAS E Referring Unavailable GALLARDO, PARAS E Primary Care Unavailable ROSITA BORGES Attending Unavailable GALLARDO, PARAS E Referring Unavailable GALLARDO, PARAS E Primary Care Unavailable Paras Gallardo MD Primary Care Provider Joana Manzo APRN Attending Provider Paras Gallardo MD Attending Provider Allergies Allergy Classification Reported Allergen(s) Allergy Type Date of Onset Reaction(s) Facility (3 sources) Ciprofloxacin Drug Allergy 07-12-20 21 [facility] (17 sources) Penicillins; Translations: [PENICILLINS] Drug allergy (disorder) 03-25-20 21 Rash [facility] (2 sources) Nylon 12 Drug allergy (disorder) [facility] (20 sources) nylon; Translations: [Nylon] Allergy to substance 10-10-20 22 Swelling, Rash [facility] (20 sources) Penicillin G Benzathine; Translations: [penicillin G benzathine] Drug allergy 08-08-20 24 Unknown, Unknown Reaction [facility] (19 sources) cefdinir Drug Allergy 08-08-20 24 Unknown, Unknown Reaction [facility] (7 sources) venlafaxine Drug Allergy Unknown [facility] Other (17 sources) venlafaxine Drug Allergy 08-08-20 Unknown, Unknown Reaction [facility] (5 sources) Penicillin G Benzathine & Proc Drug allergy Unknown [facility] Other (5 sources) NYLON STITCHING Propensity to adverse reactions 10-13-20 17 Unknown [facility] Other (5 sources) Allergies Reconciled Propensity to adverse reactions Unknown [facility] Other (5 sources) patient allergy list reviewed by nurse or physicia Propensity to adverse reactions 10-13-20 Comment:Done [facility] Other (2 sources) Penicillins Propensity to adverse reactions to drug 03-25-20 [facility] (4 sources) Penicillins Propensity to adverse reactions to drug 03-25-20 [facility] (1 source) cefdinir Drug Allergy 03-16-20 25 [facility] (1 source) Penicillins Drug allergy (disorder) 03-16-20 [facility] (1 source) venlafaxine Drug Allergy 03-16-20 [facility] Medications Current Medications Medication Drug Class(es) Dates Sig (Normalized) Sig (Original) [id number] 200 actuat albuterol 0.09 mg/actuat metered dose inhaler (18 sources) beta2-Adrenergic Agonist Start: 02-05-2025 Albuterol Sulfate 90 mcg/actuation HFA aerosol inhaler Active 2 INH INHALATION Every 6 hours as needed for shortness of breath or wheezing 6.7 February 05, 2025 12:00am Complies with drug therapy Start: 03-28-2023 End: 01-17-2024 Albuterol Sulfate (Ventolin Hfa) 90 mcg/actuation HFA aerosol inhaler Discontinued 1 INH INHALATION EVERY 4-6 HOURS as needed for shortness of breath or wheezing 6.7 March 28, 2023 12:00am January 17, 2024 3:51pm atorvastatin 80 mg oral tablet (20 sources) HMG-CoA Reductase Inhibitor Start: 01-20-2025 take 1 tablet by mouth once daily at bedtime Atorvastatin 80 mg tablet Active 80 MG PO Daily at bedtime January 20, 2025 2:27pm Complies with drug therapy Start: 11-29-2024 End: 01-20-2025 take 1 tablet by mouth once daily Atorvastatin 80 mg tablet Discontinued 0 .ROUTE .COMPLEX November 29, 2024 11:09am January 20, 2025 2:28pm TAKE 1 TABLET BY MOUTH EVERY DAY Start: 10-10-2022 End: 11-29-2024 take 1 tablet by mouth once daily Atorvastatin 80 mg tablet Discontinued 80 MG PO Daily October 10, 2022 1:00am November 29, 2024 11:09am Start: 10-10-2022 Atorvastatin A ctive MG TABLET October 10, 2022 12:00am Atorvastatin Senthil cium Active 120 actuat budesonide 0.16 mg/actuat / formoterol fumarate 0.0045 mg/actuat metered dose inhaler (5 sources) Corticosteroid, beta2-Adrenergic Agonist Start: 02-05-2025 Budesonide-Formoterol (Symbicort) 160-4.5 mcg/actuation HFA aerosol inhaler Active 1 INH INHALATION Twice daily 10.2 February 05, 2025 12:00am Complies with drug therapy losartan potassium 100 mg oral tablet (20 sources) Angiotensin 2 Receptor Rowdy Start: 01-20-2025 End: 05-25-2025 take 1 tablet by mouth once daily Losartan 100 mg tablet Active 100 MG PO Daily May 25, 2025 8:05am Complies with drug therapy Start: 01-21-2024 End: 01-20-2025 take 1 tablet by mouth once daily Losartan 100 mg tablet Discontinued 0 .ROUTE .COMPLEX 90 November 29, 2024 11:09am January 20, 2025 2:28pm TAKE 1 TABLET BY MOUTH EVERY DAY Start: 10-10-2022 End: 01-21-2024 take 1 tablet by mouth once daily Losartan 100 mg tablet Discontinued 100 MG PO Daily October 10, 2022 1:00am January 21, 2024 5:59pm Start: 10-10-2022 Losartan Activ e MG TABLET October 10, 2022 12:00am take 2 tablets by mo [facility] in the morning losartan (COZAAR) 50 mg [...] / HYDROcodone bitartrate 5 mg oral tablet (20 sources) Opioid Agonist Start: 10-10-2022 End: 03-28-2023 take 1 tablet by mouth every eight hours as needed for pain Hydrocodone-Acetami nophen 5-325 mg tablet Discontinued 1 TAB PO Q8H as needed for pain 10 3 October 10, 2022 March 28, 2023 10:04am [facility] six hours as needed for pain HYDROcodone-Acetaminophen 5-325 MG TAKE 1 TABLET BY MOUTH EVERY 6 HOURS NEEDED FOR PAIN Oral for 7 Days Not-Taking amLODIPine 5 mg oral tablet (5 sources) Dihydropyridine Calcium Channel Rowdy Start: 02-05-2025 End: 03-16-2025 take 1 tablet by mouth once daily Amlodipine 5 mg Tablet Discontinued 5 MG PO Daily February 05, 2025 12:00am March 16, 2025 6:17pm azithromycin 250 mg oral tablet (12 sources) Macrolide Antimicrobial Start: 02-05-2025 End: 03-16-2025 take 2 tablets by mouth once daily Azithromycin (Zithromax) 250 mg tablet Discontinued 250 MG PO Daily 4 February 05, 2025 12:00am March 16, 2025 6:17pm start on day 2 of therapy Start: 01-25-2025 End: 02-05-2025 Azithromycin 250 mg tablet D iscontinued 0 PO .COMPLEX January 25, 2025 12:00am February 05, 2025 10:19am For 250 mg dose pack: take 500 mg today (day 1), then 250 mg for 4 days (days 2-5) PO benzonatate 200 mg oral capsule (10 sources) Non-narcotic Antitussive Start: 12-07-2024 End: 01-20-2025 Benzonatate 200 mg capsule Discontinued 200 MG PO 2-3 TIMES PER DAY as needed for cough December 07, 2024 1:00am January 20, 2025 2:28pm cholecalciferol 1.25 mg oral capsule (18 sources) Vitamin D Start: 01-17-2024 End: 01-18-2024 take 1 capsule by mouth every week Cholecalciferol (Vitamin D3) 1,250 mcg (50,000 unit) capsule Discontinued 1250 MCG PO every week January 17, 2024 1:00am January 18, 2024 10:06am take 1 capsule by mouth every we ek Cholecalciferol 1.25 MG (39834 UT) 1 capsule Orally weekly for 90 days Active Cock-Up Wrist Splint unit (3 sources) Start: 03-16-2025 End: 06-05-2025 Cock-Up Wrist Splint unit Discontinued 0 .Route March 16, 2025 12:00am June 05, 2025 1:29pm As directed Start: 03-16-2025 Cock-Up Wrist Splint unit Active 0 .Route March 16, 2025 12:00am As directed doxycycline hyclate 100 mg oral tablet (20 sources) Tetracycline-class Drug Start: 12-07-2024 End: 01-20-2025 take 1 tablet by mouth twice daily Doxycycline Hyclate 100 mg tablet Discontinued 100 MG PO Twice daily December 07, 2024 1:00am January 20, 2025 2:27pm Start: 03-28-2023 End: 01-17-2024 take 1 capsule by mouth twice daily Doxycycline Hyclate 100 mg capsule Discontinued 100 MG PO Twice daily 14 March 28, 2023 12:00am January 17, 2024 3:51pm escitalopram 10 mg oral tablet (20 sources) Serotonin Reuptake Inhibitor Start: 09-26-2024 End: 01-20-2025 take 1 tablet by mouth once daily Escitalopram Oxalate 10 mg tablet Discontinued 0 .ROUTE .COMPLEX October 02, 2024 2:49pm January 20, 2025 2:27pm TAKE 1 TABLET BY MOUTH DAILY Start: 08-17-2024 End: 09-26-2024 take 1 tablet by mouth once daily Escitalopram Oxalate (Lexapro) 10 mg tablet Discontinued 10 MG PO Daily August 17, 2024 3:10pm September 26, 2024 5:32pm fluconazole 150 mg oral tablet (19 sources) Azole Antifungal Start: 01-25-2025 End: 02-01-2025 Fluconazole 150 mg tablet Discontinued 150 MG PO Q3D January 25, 2025 12:00am February 01, 2025 11:45am Start: 01-18-2024 End: 08-08-2024 take 1 tablet by mouth once daily Fluconazole 100 mg tablet Discontinued 100 MG PO Daily 7 January 18, 2024 1:00am August 08, 2024 2:00pm methylPREDNISolone 4 mg oral tablet (8 sources) Corticosteroid Start: 10-26-2022 Medrol 4 MG as directed Orally Once a day for 6 days Oct, Not-Taking omeprazole 40 mg delayed release oral capsule (20 sources) Proton Pump Inhibitor Start: 10-10-2022 End: 08-08-2024 take 1 capsule by mouth once daily Omeprazole 40 mg capsule,delayed release(DR/EC) Discontinued 40 MG PO Daily October 10, 2022 1:00am August 08, 2024 2:00pm Start: 10-10-2022 Omeprazole Act sil MG October 10, 2022 12:00am oseltamivir 75 mg oral capsule (6 sources) Neuraminidase Inhibitor Start: 01-26-2025 End: 02-05-2025 take 1 capsule by mouth twice daily Oseltamivir (Tamiflu) 75 mg capsule Discontinued 75 MG PO Twice daily 10 January 26, 2025 12:00am February 05, 2025 10:19am predniSONE 20 mg oral tablet (19 sources) Start: 03-17-2025 End: 06-05-2025 take 2 tablets by mouth once daily, then take 1 tablet by mouth once daily Prednisone 20 mg tablet Discontinued 20 MG PO .COMPLEX March 17, 2025 12:00am June 05, 2025 1:29pm Take 2 tabs po daily x 4 days, then take 1 tab po daily x 4 days Start: 02-05-2025 End: 03-16-2025 take 1 tablet by mouth twice daily Prednisone 10 mg tablet Discontinued 10 MG PO Twice daily February 05, 2025 12:00am March 16, 2025 6:16pm Start: 03-28-2023 End: 01-17-2024 take 1 tablet by mouth once daily Prednisone 50 mg tablet Discontinued 50 MG PO Daily 05 21March 28, 2023 12:00am January 17, 2024 3:52pm traMADol hydrochloride 50 mg oral tablet (15 sources) Opioid Agonist Start: 10-10-2022 End: 03-28-2023 Tramadol 50 mg tablet Discontinued MG October 10, 2022 1:00am March 28, 2023 10:05am Start: 10-10-2022 End: 03-28-2023 Tramadol Discontinued MG TAB LET October 10, 2022 1:00am March 28, 2023 10:05am Problems Active Problems Problem Classification Problem Date Documented Da te Episodic/Chronic Abdominal pain (20 sources) Left lower quadrant pain; Translations: [Acute abdomen] Onset: 12-10-2017 Episodic Anxiety disorders (20 sources) Anxiety state; Translations: [Anxiety state, unspecified] Onset: 03-02-2019 01-17-2024 Chronic Chronic obstructive pulmonary disease and bronchiectasis (20 sources) Acute exacerbation of chronic obstructive airways disease; Translations: [Obstructive chronic bronchitis, with (acute) exacerbation] Onset: 10-13-2017 03-28-2023 Chronic Comment on above: Problem List clean-u p per request of Phys. EHR Cmte Chronic obstructive pulmonary disease and bronchiectasis (20 sources) Bronchitis; Translations: [Bronchitis, not specified as acute or chronic] 12-07-2024 Episodic Conditions associated with dizziness or vertigo (5 sources) Benign paroxysmal positional vertigo; Translations: [Benign paroxysmal vertigo, unspecified ear] Episodic Deficiency and other anemia (20 sources) Anemia; Translations: [Anemia, unspecified] 01-17-2024 Episodic Deficiency and other anemia (2 sources) Anemia, unspecified; Translations: [Anemia, unspecified] 08-08-2024 Episodic Disorders of lipid metabolism (5 sources) Hyperlipidemia; Translations: [Hyperlipidemia, unspecified] Chronic Esophageal disorders (5 sources) Gastro-esophageal reflux disease with esophagitis; Translations: [Gastro-esophageal reflux disease with esophagitis, without bleeding] Chronic Essential hypertension (20 sources) Benign essential hypertension; Translations: [Essential hypertension, benign] Onset: 10-13-2017 01-17-2024 Chronic Genitourinary symptoms and ill-defined conditions (3 sources) Other abnormal findings in urine; Translations: [Unspecified abnormal findings in urine] Onset: 07-30-2021 Episodic Headache; including migraine (20 sources) Frontal headache ; Translations: [Frontal headache] Onset: 06-20-2018 01-17-2024 Episodic Heart valve disorders (18 sources) O/E - cardiac murmur; Translations: [Cardiac murmur, unspecified] 01-17-2024 Episodic Hypertension with complications and secondary hypertension (7 sources) Hypertensive urgency ; Translations: [Hypertensive urgency] 02-08-2025 Chronic Immunizations and screening for infectious disease (5 sources) Vaccination given; Translations: [Encounter for immunization] Episodic Inflammatory diseases of female pelvic organs (17 sources) Vaginitis; Translations: [Acute vaginitis] 01-18-2024 Episodic Malaise and fatigue (20 sources) Fatigue; Translations: [Chronic fatigue, unspecified] Chronic [...] deficiency Episodic Other aftercare (2 sources) Other mcc (current) drug therapy; Translations: [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 DRUG THERAPY] Onset: 07-30-2021 Episodic Other bone disease and musculoskeletal deformities (1 source) Bone cyst; Translations: [Other cyst of bone, unspecified site] 03-17-2025 Episodic Other circulatory disease (17 sources) Elevated blood-pressure reading without diagnosis of hypertension; Translations: [Elevated blood-pressure reading, without diagnosis of hypertension] 01-17-2024 Episodic Other connective tissue disease (5 sources) Pain in limb; Translations: [Pain in left toe(s)] Episodic Other connective tissue disease (6 sources) Pain in right foot; Translations: [Pain in right foot] 01-17-2024 Episodic Other connective tissue disease (11 sources) Pain in toe; Translations: [Pain in left toe(s)] 01-17-2024 Episodic Other connective tissue disease (11 sources) Foot pain; Translations: [Pain in right foot] 01-17-2024 Episodic Other connective tissue disease (1 source) Pain of toe of left foot; Translations: [Pain in left toe(s)] 01-17-2024 Episodic Other gastrointestinal disorders (19 sources) Chronic idiopathic constipation; Translations: [Chronic idiopathic constipation] 01-17-2024 Chronic Other gastrointestinal disorders (20 sources) Abdominal bloating; Translations: [Abdominal distension (gaseous)] 01-17-2024 Episodic Other gastrointestinal disorders (4 sources) Abdominal distension (gaseous); Translations: [ABDOMINAL DISTENSION GASEOUS] Onset: 01-11-2023 Episodic Other gastrointestinal disorders (2 sources) Constipation; Translations: [Constipation, unspecified] 06-05-2025 Episodic Other lower respiratory disease (2 sources) Wheezing; Translations: [Wheezing] 02-02-2025 Episodic Other lower respiratory disease (5 sources) Hypoxia; Translations: [Hypoxemia] 02-02-2025 Episodic Other lower respiratory disease (7 sources) Hypoxemia; Translations: [Hypoxemia] 02-05-2025 Episodic Other lower respiratory disease (4 sources) Wheezing; Translations: [Wheezing] 02-05-2025 Episodic Other lower respiratory disease (3 sources) Dyspnea on exertion; Translations: [Other forms of dyspnea] 02-08-2025 Episodic Other lower respiratory disease (2 sources) Other forms of dyspnea; Translations: [Other respiratory abnormalities] 02-08-2025 Episodic Other non-traumatic joint disorders (5 sources) Pain in left wrist; Translations: [PAIN IN LEFT WRIST] Onset: 05-08-2022 Episodic Other non-traumatic joint disorders (16 sources) Pain in wrist; Translations: [Pain in left wrist] 01-17-2024 Episodic Other non-traumatic joint disorders (2 sources) Pain of left wrist; Translations: [Pain in left wrist] 01-17-2024 [...] Onset: 01-18-2018 Episodic Pancreatic disorders (not diabetes) (18 sources) Acute pancreatitis without necrosis or infection, unspecified; Translations: [Acute pancreatitis] Onset: 07-30-2021 01-17-2024 Episodic Residual codes; unclassified (1 source) Acquired absence of both cervix and uterus; Translations: [ACQUIRED ABSENCE BOTH CERVIX AND UTERUS] Onset: 01-13-2023 Episodic Residual codes; unclassified (20 sources) Amnesia; Translations: [Other amnesia] 01-17-2024 Episodic Residual codes; unclassified (17 sources) Disorientated; Translations: [Disorientation, unspecified] 01-17-2024 Episodic Residual codes; unclassified (12 sources) Memory impairment; Translations: [Other amnesia] 01-17-2024 Episodic Respiratory failure; insufficiency; arrest (adult) (14 sources) Acute hypoxemic respiratory failure; Translations: [Acute respiratory failure with hypoxia] 02-01-2025 Episodic Screening and history of mental health and substance abuse codes (8 sources) Personal history of nicotine dependence; Translations: [Tobacco smoking behavior - finding] Onset: 01-13-2023 02-08-2025 Episodic Skin and subcutaneous tissue infections (9 sources) Cutaneous abscess of left foot; Translations: [Abscess of foot] Onset: 09-15-2022 Episodic Spondylosis; intervertebral disc disorders; other back problems (20 sources) Cervical spondylosis; Translations: [Spondylosis without myelopathy or radiculopathy, cervical region] Onset: 12-31-2022 10-10-2022 Chronic Comment on above: Problem List [...] [CONTACT W/AND (SUSP) EXPOS COVID-19] Onset: 07-30-2021 Unclassified (4 sources) A [facility] screening has identified you as FRAIL or AT RISK FOR FRAILTY. This puts you at a higher risk for infection, illness, falls, and other injuries. Here are four ways to help you reduce your risk of frailty: 1. IDENTIFY EARLY SIGNS OF FRAILTY Discuss contributing factors and concerns with your doctor 2. BE ACTIVE Walking and light strengthening exercises will help reduce weakness 3. EAT WELL Aim for three healthy meals a day that are high in protein 4. THINK POSITIVE Keep your mind active by being sociable and continuing to learn References: Stay Strong: Four Ways to Beat the Frailty Risk https://www.[facility].org/health /tkvxpfxo-tpz-lysrk ntion/ihpo-vthjia-h rfb-faqe-ho-beat-th e-fra ilty-risk 02-05-2025 Urinary tract infections (20 sources) Urinary tract infectious disease; Translations: [Urinary tract infection, site not specified] Onset: 02-01-2025 02-01-2025 Episodic Viral infection (5 sources) Disease caused by 2019-nCoV; Translations: [COVID-19] Past or Other Problems Problem Classification Problem Date Documented Da te Episodic/Chronic Other connective tissue disease (4 sources) Pain in left toe(s); Translations: [PAIN IN LEFT TOES] Onset: 09-09-2022 Episodic Other connective tissue disease (5 sources) Neuralgia; Translations: [Neuralgia and neuritis, unspecified] Onset: 01-11-2019 Episodic Other connective tissue disease (12 sources) Neuropathy; Translations: [Neuralgia and neuritis, unspecified] Onset: 01-11-2019 01-17-2024 Episodic Residual codes; unclassified (5 sources) Pale complexion; Translations: [Pallor] Onset: 12-03-2017 Episodic Results Test Name Value Interpretation Reference Range Facility X-ray reportOrdered By: Abdon Martinez on 03-16-2025 Study report [facility] Main [address] [address] XRay Report Signed Patient: Nya Jiang MR#: [id number] : 1945 Acct:[id number] Age/Sex: 79 / F ADM Date: Loc: XDUCLY Room: Type: REG CLI Attending Dr: 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 Moderate to severe degenerative changes involving the carpal metacarpal joint and the scaphoid multangular joint.. Minimal radiocarpal degenerative change. Possible subchondral cystic change involving the lunate and distal aspect of scaphoid. Anterior soft tissue swelling. XR/XR wrist LT min 3V* IMPRESSION: DEGENERATIVE CHANGES. NO DEFINITE ACUTE FRACTURE Impression dictated by: Gigi Martinez M.D. 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 Moderate to severe degenerative changes involving the carpal metacarpal joint and the scaphoid multangular joint.. Minimal radiocarpal degenerative change. Possible subchondral cystic change involving the lunate and distal aspect of scaphoid. Anterior soft tissue swelling. XR/XR wrist LT min 3V* IMPRESSION: DEGENERATIVE CHANGES. NO DEFINITE ACUTE FRACTURE Impression dictated by: Gigi Martinez M.D. 03/16/2025 7:10 PM Dictation Location: [place] [address] Transcribed By: [facility] 03/16/251909 Dictated By: Gigi Martinez MD 03/16/251905 Signed By: 03/16/251909 Normal [facility] Basic Metabolic Panelon 01-14 Anion gap [Moles/Vol] 9.2 mmol/L Normal 6.0-15.0 [facility] Comment on above: Performed By: #### B MING CBCNO ####[place] [id number] [place] [id number] [facility] Calcium [Mass/Vol] 9.3 mg/dL Normal 8.6-10.3 [facility] Comment on above: Performed By: #### B MING, CBCNO ####[place] [id number] [facility] Chloride [Moles/Vol] 101 mmol/L Normal 98-107 [facility] Comment on above: Performed By: #### B MING, CBCNO ####[facility] [place] [address] [facility] CO2 [Moles/Vol] 29.0 mmol/L Normal 21.0-31.0 [facility] Comment on above: Performed By: #### B MP, CBCNO ####[facility] [place] [address] [facility] Creatinine [Mass/Vol] 0.82 mg/dL Normal 0.60-1.20 [facility] Comment on above: Performed By: #### B MING CBCNO ####[place] [address] [place] [id number] [place] Creatinine Clr Calc Pharmacy 54.42 Normal [facility] Comment on above: Result Comment: PERF ORMED BY: [facility] [address] [place] [address] PATHOLOGIST EVALUATION ENGINEER NERI COMBS M.D. Performed By: #### B MING CBCNO ####[place] [address] [place] GFR/1.73 sq M.predicted MDRD (S/P/Bld) [Vol rate/Area] mL/min/{1.73_m2} Normal [facility] Comment on above: Performed By: #### B MING CBCNO ####[address] Glucose [Mass/Vol] 154 mg/dL High 70-100 [facility] Comment on above: Result Comment: [facility] Glucose Reference Range is dependent on time and content of last meal. Glucose of more than 200 mg/dL in a nonstressed, ambulatory subject supports the diagnosis of Diabetes Mellitus. ADA recommended reference range Performed By: #### B MING CBCNO ####[place] [id number] [facility] Potassium [Moles/Vol] 4.2 mmol/L Normal 3.5-5.1 [facility] Comment on above: Performed By: #### B MING CBCNO ####[place] [id number] [facility] Sodium [Moles/Vol] 135 mmol/L Low 136-145 [facility] Comment on above: Performed By: #### B MING CBCNO ####[place] [id number] [facility] Urea nitrogen [Mass/Vol] 21 mg/dL Normal 7-25 [facility] Comment on above: Performed By: #### B MING CBCNO ####[place] [id number] [place] Calcium [Mass/volume] in Ser um or PlasmaOrdered By: Carole Zimmerr on 02-05-2025 Calcium [Mass/Vol] Calcium [Mass/volume ] in Serum or Plasma 8.6-10.3 [facility] Carbon dioxide, total [Moles /volume] in Serum or PlasmaOrdered By: Obchas Wadeomar on 02-05-2025 CO2 [Moles/Vol] Carbon dioxide, tota l [Moles/volume] in Serum or Plasma 21.0-31.0 [facility] Chloride [Moles/volume] in S nhi or PlasmaOrdered By: Obchas Wadeomar on 02-05-2025 Chloride [Moles/Vol] Chloride [Moles/vol ume] in Serum or Plasma 98-107 [facility] Creatinine [Mass/volume] in Serum or PlasmaOrdered By: Carole Wadeomar on 02-05-2025 Creatinine [Mass/Vol] Creatinine [Mass/v olume] in Serum or Plasma 0.60-1.20 [facility] Erythrocyte distribution wid th Auto (RBC) [Ratio]Ordered By: Carole Zimmerr on 02-05-2025 Erythrocyte distribution width (RBC) [Ratio] Erythrocyte distribution width [Ratio] by Automated count 11.9-15.3 [facility] Glucose [Mass/volume] in Ser um or PlasmaOrdered By: Carole Wadeomar on 02-05-2025 Glucose [Mass/Vol] Glucose [Mass/volume ] in Serum or Plasma High 70-100 [facility] Comment on above: ADA recommended refe rence rangeRandom Glucose Reference Range is dependent on time and content of last meal. Glucose of more than 200 mg/dL in a nonstressed, ambulatory subject supports the diagnosis of Diabetes Mellitus. Hematocrit Auto (Bld) [Volum e fraction]Ordered By: Carole Kauffman on 02-05-2025 Hematocrit (Bld) [Volume fraction] Hematocrit [Volume Fraction] of Blood by Automated count 34.0-46.4 [facility] Hemoglobin [Mass/volume] in BloodOrdered By: Carole Zimmerr on 02-05-2025 Hemoglobin (Bld) [Mass/Vol] Hemoglobin [Mass/volume] in Blood 11.8-15.4 [facility] Hemogram CBC Without Diffon 02-05-2025 Erythrocyte distribution width (RBC) [Ratio] 13.1 % Normal 11.9-15.3 [facility] Comment on above: Performed By: #### B MP, CBCNO ####[place] [id number] [facility] Hematocrit (Bld) [Volume fraction] 44.3 % Normal 34.0-46.4 [facility] Comment on above: Performed By: #### B MP, CBCNO ####[place] [id number] [facility] Hemoglobin (Bld) [Mass/Vol] 14.9 g/dL Normal 11.8-15.4 [facility] Comment on above: Performed By: #### B MP, CBCNO ####[place] [id number] [facility] MCH (RBC) [Entitic mass] 28.1 pg Normal 24.7-34.3 [facility] Comment on above: Performed By: #### B MP, CBCNO ####[place] [id number] [facility] MCV (RBC) [Entitic vol] 83.4 fL Normal 80-100 [facility] Comment on above: Performed By: #### B MP, CBCNO ####[place] [id number] [facility] Mean Corpuscular HGB Conc 33.7 g/dL Normal 32.0-35.0 [facility] Comment on above: Performed By: #### B MP, CBCNO ####[place] [id number] [facility] Platelet mean volume (Bld) [Entitic vol] 6.7 fL Normal 6.3-10.7 [facility] Comment on above: Result Comment: PERF ORMED BY: [facility] [address] HOSPITALSheylaElio [place] [id number] PATHOLOGIST EVALUATION ENGINEER NERI COMBS M.D. Performed By: #### B MP, CBCNO ####[facility] [address] [place] [id number] [facility] Platelets (Bld) [#/Vol] 434 10*3/uL Normal 150-450 [facility] Comment on above: Performed By: #### B MP, CBCNO ####[facility] [id number] RBC (Bld) [#/Vol] 5.31 10*6/uL High 3.60-5.00 [facility] Comment on above: Performed By: #### B MP, CBCNO ####[place] [address] [place] [id number] [facility] WBC (Bld) [#/Vol] 16.2 10*3/uL High 3.8-11.6 [facility] Comment on above: Performed By: #### B MP, CBCNO ####[address] Leukocytes [#/volume] correc sheila for nucleated erythrocytes in Blood by Automated counOrdered By: ObMozydah [employer] on 02-05-2025 WBC corrected for nucl RBC Auto (Bld) [#/Vol] Leukocytes [#/volume] corrected for nucleated erythrocytes in Blood by Automated coun High 3.8-11.6 [facility] MCH Auto (RBC) [Entitic mass ]Ordered By: ObMozydah [employer] on 02-05-2025 MCH (RBC) [Entitic mass] MCH [Entitic mass] by Automated count 24.7-34.3 [facility] MCHC Auto (RBC) [Mass/Vol]Or dered By: ObMozydah [employer] on 02-05-2025 MCHC (RBC) [Mass/Vol] MCHC [Mass/volume] by Automated count 32.0-35.0 [facility] MCV Auto (RBC) [Entitic vol] Ordered By: ObMozydah [employer] on 02-05-2025 MCV (RBC) [Entitic vol] MCV [Entitic volume] by Automated count 80-100 [facility] No Panel InformationOrdered By: ObMozydaAzuroomar on 02-05-2025 Estimated GFR (CKD-EPI) > 60.0 mL/Min [facility] Pharmacy Creatinine Clearance (Chem 54.42 [facility] Platelet mean volume Auto (B ld) [Entitic vol]Ordered By: Carole Wadeomar on 02-05-2025 Platelet mean volume (Bld) [Entitic vol] Platelet mean volume [Entitic volume] in Blood by Automated count 6.3-10.7 [facility] Platelets Auto (Bld) [#/Vol] Ordered By: Obchas Wadeomar on 02-05-2025 Platelets (Bld) [#/Vol] Platelets [#/volume] in Blood by Automated count 150-450 [facility] Potassium [Moles/volume] in Serum or PlasmaOrdered By: Carole Wadeomamartha on 02-05-2025 Potassium [Moles/Vol] Potassium [Moles/v olume] in Serum or Plasma 3.5-5.1 [facility] RBC Auto (Bld) [#/Vol]Ordere d By: Carole Wadeomar on 02-05-2025 RBC (Bld) [#/Vol] Erythrocytes [#/volu me] in Blood by Automated count High 3.60-5.00 [facility] Serum or plasma anion gap de terminationOrdered By: Carole Kauffman on 02-05-2025 Anion gap [Moles/Vol] Serum or plasma an ion gap determination 6.0-15.0 [facility] Sodium [Moles/volume] in Ser um or PlasmaOrdered By: Obchas Wadeomar on 02-05-2025 Sodium [Moles/Vol] Sodium [Moles/volume ] in Serum or Plasma Low 136-145 [facility] Urea nitrogen [Mass/volume] in Serum or PlasmaOrdered By: Obrobbydah Mauroomar on 02-05-2025 Urea nitrogen [Mass/Vol] Urea nitrogen [Mass/volume] in Serum or Plasma 06-08 [facility] Alanine aminotransferase [En zymatic activity/volume] in Serum or PlasmaOrdered By: Obchas Wadeomar on 02-02-2025 ALT [Catalytic activity/Vol] Alanine aminotransferase [Enzymatic activity/volume] in Serum or Plasma [facility] Albumin [Mass/volume] in Ser um or Plasma by Bromocresol green (BCG) dye binding methoOrdered By: Carole Kauffman on 02-02-2025 Albumin BCG dye [Mass/Vol] Albumin [Mass/volume] in Serum or Plasma by Bromocresol green (BCG) dye binding metho 3.5-5.7 [facility] Alkaline phosphatase [Enzyma tic activity/volume] in Serum or PlasmaOrdered By: Obchas Zimmerr on 02-02-2025 ALP [Catalytic activity/Vol] Alkaline phosphatase [Enzymatic activity/volume] in Serum or Plasma 34-104 [facility] Aspartate aminotransferase [ Enzymatic activity/volume] in Serum or PlasmaOrdered By: Carole Kauffman on 02-02-2025 AST [Catalytic activity/Vol] Aspartate aminotransferase [Enzymatic activity/volume] in Serum or Plasma Low 13-39 [facility] Basophils Auto (Bld) [#/Vol] Ordered By: Carole Kauffman on 02-02-2025 Basophils (Bld) [#/Vol] Automated basophil count 0.0-0.2 [facility] Basophils/100 WBC Auto (Bld) Ordered By: chas Kauffman on 02-02-2025 Basophils/100 WBC (Bld) Automated basophil % . [facility] Bilirubin.total [Mass/volume ] in Serum or PlasmaOrdered By: Carole Kauffman on 02-02-2025 Bilirubin [Mass/Vol] Bilirubin.total [Mass/volume] in Serum or Plasma 0.3-1.0 [facility] Complete Blood Count Auto Di ffon 02-02-2025 Basophils (Bld) [#/Vol] 0.0 10*3/uL Normal 0.0-0.2 [facility] Comment on above: Result Comment: PERF ORMED BY: [place] [address] PATHOLOGIST EVALUATION ENGINEER NERI COMBS M.D. Performed By: #### C MP, CBC #### [address] Basophils/100 WBC (Bld) 0.5 % Normal . [facility] Comment on above: Performed By: #### C MP, CBC #### [facility] [address] Eosinophils (Bld) [#/Vol] 0.0 10*3/uL Normal 0.0-0.45 [facility] Comment on above: Performed By: #### C MP, CBC #### [facility] [address] [place] [address] [place] Eosinophils/100 WBC (Bld) 0.0 % Normal . [facility] Comment on above: Performed By: #### C MP, CBC #### [address] Erythrocyte distribution width (RBC) [Ratio] 13.2 % Normal 11.9-15.3 [facility] Comment on above: Performed By: #### C MP, CBC #### [address] Hematocrit (Bld) [Volume fraction] 41.4 % Normal 34.0-46.4 [facility] Comment on above: Performed By: #### C MP, CBC #### [address] Hemoglobin (Bld) [Mass/Vol] 14.6 g/dL Normal 11.8-15.4 [facility] Comment on above: Performed By: #### C MP, CBC #### [place] [address] [place] Lymphocytes (Bld) [#/Vol] 0.6 10*3/uL Low 1.00-4.8 [facility] Comment on above: Performed By: #### C MP, CBC #### [place] [address] [place] Lymphocytes/100 WBC (Bld) 6.5 % Normal . [facility] Comment on above: Performed By: #### C MP, CBC #### [address] MCH (RBC) [Entitic mass] 29.1 pg Normal 24.7-34.3 [facility] Comment on above: Performed By: #### C MP, CBC #### [address] MCV (RBC) [Entitic vol] 82.7 fL Normal 80-100 [facility] Comment on above: Performed By: #### C MP, CBC #### [address] Mean Corpuscular HGB Conc 35.2 g/dL High 32.0-35.0 [facility] Comment on above: Performed By: #### C MP, CBC #### [address] Monocytes (Bld) [#/Vol] 0.1 10*3/uL Normal 0.0-0.8 [facility] Comment on above: Performed By: #### C MP, CBC #### [address] Monocytes/100 WBC (Bld) 1.4 % Normal . [facility] Comment on above: Performed By: #### C MP, CBC #### [address] Neutrophils (Bld) [#/Vol] 8.9 10*3/uL High 1.8-7.7 [facility] Comment on above: Performed By: #### C MP, CBC #### [address] Neutrophils/100 WBC (Bld) 91.6 % Normal . [facility] Comment on above: Performed By: #### C MP, CBC #### [address] NRBC% 0.0 /100{WBC} Normal 0-0.5 [facility] Comment on above: Performed By: #### C MP, CBC #### [address] Platelet mean volume (Bld) [Entitic vol] 6.5 fL Normal 6.3-10.7 [facility] Comment on above: Performed By: #### C MP, CBC #### [address] Platelets (Bld) [#/Vol] 386 10*3/uL Normal 150-450 [facility] Comment on above: Performed By: #### C MP, CBC #### [address] RBC (Bld) [#/Vol] 5.01 10*6/uL High 3.60-5.00 [facility] Comment on above: Performed By: #### C MP, CBC #### [address] WBC (Bld) [#/Vol] 9.7 10*3/uL Normal 3.8-11.6 [facility] Comment on above: Performed By: #### C MP, CBC #### [address] Comprehensive Metabolic Pane laura 02-02-2025 Albumin [Mass/Vol] 3.8 g/dL Normal 3.5-5.7 [facility] Comment on above: Performed By: #### C MP, CBC #### [address] Albumin/Globulin [Mass ratio] 1.2 {ratio} Normal [facility] Comment on above: Performed By: #### C MP, CBC #### [address] ALP [Catalytic activity/Vol] 84 U/L Normal 34-104 [facility] Comment on above: Performed By: #### C MP, CBC #### [address] ALT [Catalytic activity/Vol] 7 U/L Normal 7-52 [facility] Comment on above: Performed By: #### C MP, CBC #### [address] Anion gap [Moles/Vol] 11.4 mmol/L Normal 6.0-15.0 [facility] Comment on above: Performed By: #### C MP, CBC #### [address] AST [Catalytic activity/Vol] 12 U/L Low 13-39 [facility] Comment on above: Performed By: #### C MP, CBC #### [address] Bilirubin [Mass/Vol] 0.4 mg/dL Normal 0.3-1.0 [facility] Comment on above: Performed By: #### C MP, CBC #### [address] Calcium [Mass/Vol] 9.0 mg/dL Normal 8.6-10.3 [facility] Comment on above: Performed By: #### C MP, CBC #### [address] Chloride [Moles/Vol] 101 mmol/L Normal 98-107 [facility] Comment on above: Performed By: #### C MP, CBC #### [address] CO2 [Moles/Vol] 27.5 mmol/L Normal 21.0-31.0 [facility] Comment on above: Performed By: #### C MP, CBC #### [address] Creatinine [Mass/Vol] 0.65 mg/dL Normal 0.60-1.20 [facility] Comment on above: Performed By: #### C MP, CBC #### [address] Creatinine Clr Calc Pharmacy 54.61 Normal [facility] Comment on above: Result Comment: PERF ORMED BY: [place] [address] PATHOLOGIST EVALUATION ENGINEER NERI COMBS M.D. Performed By: #### C MP, CBC #### [address] GFR/1.73 sq M.predicted MDRD (S/P/Bld) [Vol rate/Area] mL/min/{1.73_m2} Normal [facility] Comment on above: Performed By: #### C MP, CBC #### [address] Globulin (S) [Mass/Vol] 3.2 g/dL Normal [facility] Comment on above: Performed By: #### C MP, CBC #### [address] Glucose [Mass/Vol] 191 mg/dL High 70-100 [facility] Comment on above: Result Comment: [facility] Glucose Reference Range is dependent on time and content of last meal. Glucose of more than 200 mg/dL in a nonstressed, ambulatory subject supports the diagnosis of Diabetes Mellitus. ADA recommended reference range Performed By: #### C MP, CBC #### [address] Potassium [Moles/Vol] 3.9 mmol/L Normal 3.5-5.1 [facility] Comment on above: Performed By: #### C MP, CBC #### [address] Protein [Mass/Vol] 7.0 g/dL Normal 6.4-8.9 [facility] Comment on above: Performed By: #### C MP, CBC #### [address] Sodium [Moles/Vol] 136 mmol/L Normal 136-145 [facility] Comment on above: Performed By: #### C MP, CBC #### [place] [address] [place] Urea nitrogen [Mass/Vol] 12 mg/dL Normal 7-25 [facility] Comment on above: Performed By: #### C MP, CBC #### [place] [address] [place] Eosinophils Auto (Bld) [#/Vo l]Ordered By: Carole Kauffman on 02-02-2025 Eosinophils (Bld) [#/Vol] Automated eosinophil count 0.0-0.45 [facility] Eosinophils/100 WBC Auto (Bl d)Ordered By: Obaydah Daromar on 02-02-2025 Eosinophils/100 WBC (Bld) Automated eosinophil % . [facility] Globulin Calc (S) [Mass/Vol] Ordered By: Obaydah Daromar on 02-02-2025 Globulin (S) [Mass/Vol] Serum globulin measurement by calculation (mass/volume) [facility] Lymphocytes Auto (Bld) [#/Vo l]Ordered By: Obaydah Daromar on 02-02-2025 Lymphocytes (Bld) [#/Vol] Lymphocytes [#/volume] in Blood by Automated count Low 1.00-4.8 [facility] Lymphocytes/100 WBC Auto (Bl d)Ordered By: Obaydah Daromar on 02-02-2025 Lymphocytes/100 WBC (Bld) Lymphocytes/100 leukocytes in Blood by Automated count . [facility] Monocytes Auto (Bld) [#/Vol] Ordered By: Obaydah Daromar on 02-02-2025 Monocytes (Bld) [#/Vol] Automated blood monocyte count 0.0-0.8 [facility] Monocytes/100 WBC Auto (Bld) Ordered By: Obaydah Daromar on 02-02-2025 Monocytes/100 WBC (Bld) Automated monocyte % . [facility] Neutrophils Auto (Bld) [#/Vo l]Ordered By: Obaydah Daromar on 02-02-2025 Neutrophils (Bld) [#/Vol] Neutrophils [#/volume] in Blood by Automated count High 1.8-7.7 [facility] Neutrophils/100 WBC Auto (Bl d)Ordered By: ObMozydah Daromar on 02-02-2025 Neutrophils/100 WBC (Bld) Automated neutrophil % . [facility] Nucleated erythrocytes [Pres ence] in Blood by Automated countOrdered By: Obrobbydah [employer] on 02-02-2025 Nucleated RBC Auto Ql (Bld) Nucleated erythrocytes [Presence] in Blood by Automated count 0-0.5 [facility] Protein [Mass/volume] in Ser um or PlasmaOrdered By: ObMozydah Daromar on 02-02-2025 Protein [Mass/Vol] Protein [Mass/volume ] in Serum or Plasma 6.4-8.9 [facility] Serum or plasma albumin/glob ulin mass ratioOrdered By: Carole Daromar on 02-02-2025 Albumin/Globulin [Mass ratio] Serum or plasma albumin/globulin mass ratio [facility] WBC Auto (Bld) [#/Vol]Ordere d By: Obchas Daromar on 02-02-2025 WBC (Bld) [#/Vol] Leukocytes [#/volume ] in Blood by Automated count 3.8-11.6 [facility] Appearance of UrineOrdered B y: No Jones on 02-01-2025 Appearance (U) Urine appearance Abnormal Clear [facility] B-Type Natriuretic Peptideon 02-01-2025 Natriuretic peptide B (Bld) [Mass/Vol] 84.0 pg/mL Normal 5-100 [facility] Comment on above: Result Comment: PERF ORMED BY: [facility] [address] [place] [address] PATHOLOGIST EVALUATION ENGINEER NERI COMBS M.D. Performed By: #### C K, BNP, CBC, BMP, DDIMER, HS TROP, PT ####[facility] [address] Bacteria [Presence] in Urine by AutomatedOrdered By: No Jones on 02-01-2025 Bacteria Auto Ql (U) Bacteria [Presence] in Urine by Automated None Seen [facility] Basic Metabolic Panelon 01-14 Anion gap [Moles/Vol] 10.1 mmol/L Normal 6.0-15.0 [facility] Comment on above: Performed By: #### C K, BNP, CBC, BMP, DDIMER, HS TROP, PT #### [facility] [address] Calcium [Mass/Vol] 9.3 mg/dL Normal 8.6-10.3 [facility] Comment on above: Performed By: #### C K, BNP, CBC, BMP, DDIMER, HS TROP, PT #### [facility] [address] Chloride [Moles/Vol] 101 mmol/L Normal 98-107 [facility] Comment on above: Performed By: #### C K, BNP, CBC, BMP, DDIMER, HS TROP, PT #### [facility] [address] CO2 [Moles/Vol] 30.7 mmol/L Normal 21.0-31.0 [facility] Comment on above: Performed By: #### C K, BNP, CBC, BMP, DDIMER, HS TROP, PT #### [facility] [address] Creatinine [Mass/Vol] 0.63 mg/dL Normal 0.60-1.20 [facility] Comment on above: Performed By: #### C K, BNP, CBC, BMP, DDIMER, HS TROP, PT #### [place] [address] [place] Creatinine Clr Calc Pharmacy 53.67 Normal [facility] Comment on above: Result Comment: PERF ORMED BY: [place] [address] PATHOLOGIST EVALUATION ENGINEER NERI COMBS M.D. Performed By: #### C K, BNP, CBC, BMP, DDIMER, HS TROP, PT #### [address] GFR/1.73 sq M.predicted MDRD (S/P/Bld) [Vol rate/Area] mL/min/{1.73_m2} Normal [facility] Comment on above: Performed By: #### C K, BNP, CBC, BMP, DDIMER, HS TROP, PT #### [facility] [address] [place] [address] [place] Glucose [Mass/Vol] 127 mg/dL High 70-100 [facility] Comment on above: Result Comment: [place] Glucose Reference Range is dependent on time and content of last meal. Glucose of more than 200 mg/dL in a nonstressed, ambulatory subject supports the diagnosis of Diabetes Mellitus. ADA recommended reference range Performed By: #### C K, BNP, CBC, BMP, DDIMER, HS TROP, PT #### [address] Potassium [Moles/Vol] 3.8 mmol/L Normal 3.5-5.1 [facility] Comment on above: Performed By: #### C K, BNP, CBC, BMP, DDIMER, HS TROP, PT #### [address] Sodium [Moles/Vol] 138 mmol/L Normal 136-145 [facility] Comment on above: Performed By: #### C K, BNP, CBC, BMP, DDIMER, HS TROP, PT #### [address] Urea nitrogen [Mass/Vol] 7 mg/dL Normal 7-25 [facility] Comment on above: Performed By: #### C K, BNP, CBC, BMP, DDIMER, HS TROP, PT #### [address] Basophils Auto (Bld) [#/Vol] Ordered By: No Jones on 02-01-2025 Basophils (Bld) [#/Vol] Automated basophil count 0.0-0.2 [facility] Basophils/100 WBC Auto (Bld) Ordered By: No Jones on 02-01-2025 Basophils/100 WBC (Bld) Automated basophil % . [facility] Bilirubin Test strip Ql (U)O rdered By: No Jones on 02-01-2025 Bilirubin Ql (U) Bilirubin.total [Pre sence] in Urine by Test strip Negative [facility] BioFire Not Detectedon 02-01 BioFire Not Detected Not detected Normal Not Detecte T [facility] Comment on above: Result Comment: This is a duplicate RP2.1 COVID (PCR) result to be used for statistical tracking purpose only. PERFORMED BY: [place] [address] PATHOLOGIST EVALUATION ENGINEER NERI COMBS M.D. Performed By: #### B IOFIRECOVNOTDE, RESP PANEL UPP. ####[facility] [id number] COVID-19 Detected/Not Detect edOrdered By: No Jones on 02-01-2025 SARS-CoV-2 (COVID-19) RNA UMESH+non-probe Ql (Nph) Not detected Not Detecte [facility] Comment on above: This is a duplicate RP2.1 COVID (PCR) result to be used for statistical tracking purpose only. Calcium [Mass/volume] in Ser um or PlasmaOrdered By: No Jones on 02-01-2025 Calcium [Mass/Vol] Calcium [Mass/volume ] in Serum or Plasma 8.6-10.3 [facility] Carbon dioxide, total [Moles /volume] in Serum or PlasmaOrdered By: No Jones on 02-01-2025 CO2 [Moles/Vol] Carbon dioxide, tota l [Moles/volume] in Serum or Plasma 21.0-31.0 [facility] Casts [Presence] in Urine by AutomatedOrdered By: No Jones on 02-01-2025 Casts Auto Ql (U) Casts [Presence] in Urine by Automated High None Seen [facility] Chloride [Moles/volume] in S nhi or PlasmaOrdered By: No Jones on 02-01-2025 Chloride [Moles/Vol] Chloride [Moles/vol ume] in Serum or Plasma 98-107 [facility] Color Auto (U)Ordered By: Zunilda Jones on 02-01-2025 Color (U) Color of Urine by Auto Yellow Fi [facility]aOn [facility] Complete Blood Count Auto Di ffon 02-01-2025 Basophils (Bld) [#/Vol] 0.2 10*3/uL Normal 0.0-0.2 [facility] Comment on above: Result Comment: PERF ORMED BY: [facility] [address] [facility] [address] [address] PATHOLOGIST EVALUATION ENGINEER NERI COMBS M.D. Performed By: #### C K, BNP, CBC, BMP, DDIMER, HS TROP, PT #### [facility] [address] Basophils/100 WBC (Bld) 1.7 % Normal . [facility] Comment on above: Performed By: #### C K, BNP, CBC, BMP, DDIMER, HS TROP, PT #### [address] Eosinophils (Bld) [#/Vol] 0.1 10*3/uL Normal 0.0-0.45 [facility] Comment on above: Performed By: #### C K, BNP, CBC, BMP, DDIMER, HS TROP, PT #### [address] Eosinophils/100 WBC (Bld) 1.3 % Normal . [facility] Comment on above: Performed By: #### C K, BNP, CBC, BMP, DDIMER, HS TROP, PT #### [address] Erythrocyte distribution width (RBC) [Ratio] 13.1 % Normal 11.9-15.3 [facility] Comment on above: Performed By: #### C K, BNP, CBC, BMP, DDIMER, HS TROP, PT #### [address] Hematocrit (Bld) [Volume fraction] 41.8 % Normal 34.0-46.4 [facility] Comment on above: Performed By: #### C K, BNP, CBC, BMP, DDIMER, HS TROP, PT #### [address] Hemoglobin (Bld) [Mass/Vol] 14.6 g/dL Normal 11.8-15.4 [facility] Comment on above: Performed By: #### C K, BNP, CBC, BMP, DDIMER, HS TROP, PT #### [address] Lymphocytes (Bld) [#/Vol] 1.8 10*3/uL Normal 1.00-4.8 [facility] Comment on above: Performed By: #### C K, BNP, CBC, BMP, DDIMER, HS TROP, PT #### [address] Lymphocytes/100 WBC (Bld) 16.6 % Normal . [facility] Comment on above: Performed By: #### C K, BNP, CBC, BMP, DDIMER, HS TROP, PT #### [address] MCH (RBC) [Entitic mass] 28.9 pg Normal 24.7-34.3 [facility] Comment on above: Performed By: #### C K, BNP, CBC, BMP, DDIMER, HS TROP, PT #### [address] MCV (RBC) [Entitic vol] 82.7 fL Normal 80-100 [facility] Comment on above: Performed By: #### C K, BNP, CBC, BMP, DDIMER, HS TROP, PT #### [address] Mean Corpuscular HGB Conc 34.9 g/dL Normal 32.0-35.0 [facility] Comment on above: Performed By: #### C K, BNP, CBC, BMP, DDIMER, HS TROP, PT #### [address] Monocytes (Bld) [#/Vol] 0.8 10*3/uL Normal 0.0-0.8 [facility] Comment on above: Performed By: #### C K, BNP, CBC, BMP, DDIMER, HS TROP, PT #### [place] [address] [place] Monocytes/100 WBC (Bld) 17.49 % Normal 0.00-20.00 [facility] Comment on above: Performed By: #### C K, BNP, CBC, BMP, DDIMER, HS TROP, PT #### [address] Monocytes/100 WBC (Bld) 7.0 % Normal . [facility] Comment on above: Performed By: #### C K, BNP, CBC, BMP, DDIMER, HS TROP, PT #### [address] Neutrophils (Bld) [#/Vol] 8.1 10*3/uL High 1.8-7.7 [facility] Comment on above: Performed By: #### C K, BNP, CBC, BMP, DDIMER, HS TROP, PT #### [address] Neutrophils/100 WBC (Bld) 73.4 % Normal . [facility] Comment on above: Performed By: #### C K, BNP, CBC, BMP, DDIMER, HS TROP, PT #### [address] NRBC% 0.1 /100{WBC} Normal 0-0.5 [facility] Comment on above: Performed By: #### C K, BNP, CBC, BMP, DDIMER, HS TROP, PT #### [address] Platelet mean volume (Bld) [Entitic vol] 6.3 fL Normal 6.3-10.7 [facility] Comment on above: Performed By: #### C K, BNP, CBC, BMP, DDIMER, HS TROP, PT #### [place] [address] [place] Platelets (Bld) [#/Vol] 382 10*3/uL Normal 150-450 [facility] Comment on above: Performed By: #### C K, BNP, CBC, BMP, DDIMER, HS TROP, PT #### [place] [address] [place] RBC (Bld) [#/Vol] 5.06 10*6/uL High 3.60-5.00 [facility] Comment on above: Performed By: #### C K, BNP, CBC, BMP, DDIMER, HS TROP, PT #### [address] WBC (Bld) [#/Vol] 11.1 10*3/uL Normal 3.8-11.6 [facility] Comment on above: Performed By: #### C K, BNP, CBC, BMP, DDIMER, HS TROP, PT #### [facility] [address] Creatine Kinaseon 02-01-2025 CK [Catalytic activity/Vol] 26 U/L Low 30-223 [facility] Comment on above: Performed By: #### C K, BNP, CBC, BMP, DDIMER, HS TROP, PT ####[facility] [id number] [address] Creatine kinase [Enzymatic a ctivity/volume] in Serum or PlasmaOrdered By: No Jones on 02-01-2025 CK [Catalytic activity/Vol] Creatine kinase [Enzymatic activity/volume] in Serum or Plasma Low 30-223 [facility] Creatinine [Mass/volume] in Serum or PlasmaOrdered By: No Jones on 02-01-2025 Creatinine [Mass/Vol] Creatinine [Mass/v olume] in Serum or Plasma 0.60-1.20 [facility] D-Dimer High Sensitivityon 0 02-01-2025 D-Dimer High Sensitivity 220 ng/mL Normal 0-243 [facility] Comment on above: Result Comment: The reference range for D-dimer is <243 ng/mL D-dimer units. D-dimer results must be used in conjunction with a clinical pretest probability (PTP) assessment model for deep vein thrombosis (DVT) and pulmonary embolism (PE). Results <230 ng/mL d-dimer units can be used as a negative predictor in patients with low or moderate probability for DVT/PE. Results above the exclusion threshold of 230 ng/ml D-dimer units for DVT/PE may indicate the need for further diagnostic testing. D-Dimer can be increased in hospitalized patients due to co-morbid conditions. A hematocrit value greater than 55% may lead to inaccurate results in coagulation testing. Patients having hematocrit values >55% require a special collection tube for coagulation studies. Please contact the laboratory at [phone] for redraw instructions. PERFORMED BY: [facility] [address] [place] [address] PATHOLOGIST EVALUATION ENGINEER NERI COMBS M.D. Performed By: #### C K, BNP, CBC, BMP, DDIMER, HS TROP, PT ####[address] [address] [facility] Dipstick and Microscopicon 0 02-01-2025 Appearance (U) Cloudy Critically abnormal Clear [facility] Comment on above: Order Comment: Name Collection Type:: Clean-Voided Midstream Performed By: #### A DDONUAPLUS, CUU ####[place] [id number] [facility] Bacteria,Urine Rare Normal None Seen [facility] Comment on above: Order Comment: Name Collection Type:: Clean-Voided Midstream Performed By: #### A DDONUAPLUS, CUU ####[place] [id number] [facility] Bilirubin,Urine Negative Normal Negative [facility] Comment on above: Order Comment: Name Collection Type:: Clean-Voided Midstream Performed By: #### A DDONUAPLUS, CUU ####[place] [id number] [facility] Color (U) Yellow Normal Yellow [facility] Comment on above: Order Comment: Name Collection Type:: Clean-Voided Midstream Performed By: #### A DDONUAPLUS, CUU ####[place] [id number] [facility] Glucose Ql (U) Normal Normal Normal [facility] Comment on above: Order Comment: Name Collection Type:: Clean-Voided Midstream Performed By: #### A DDONUAPLUS, CUU ####[place] [id number] [facility] Hyaline Casts,Urine None Normal 0-8 [facility] Comment on above: Order Comment: Name Collection Type:: Clean-Voided Midstream Performed By: #### A DDONUAPLUS, CUU ####[place] [id number] [facility] Ketones Ql (U) Negative Normal Negative [facility] Comment on above: Order Comment: Name Collection Type:: Clean-Voided Midstream Performed By: #### A DDONUAPLUS, CUU ####[address] [address] [facility] Leukocyte esterase Test strip Ql (U) 4+ High Negative [facility] Comment on above: Order Comment: Name Collection Type:: Clean-Voided Midstream Performed By: #### A DDONUAPLUS, CUU ####[address] [address] [place] Mucus,Urine Rare Normal [facility] Comment on above: Order Comment: Name Collection Type:: Clean-Voided Midstream Result Comment: PERF ORMED BY: [facility] [address] [place] [address] PATHOLOGIST EVALUATION ENGINEER NERI COMBS M.D. Performed By: #### A DDONUAPLUS, CUU ####[address] [address] [facility] Nitrite,Urine Negative Normal Negative [facility] Comment on above: Order Comment: Name Collection Type:: Clean-Voided Midstream Performed By: #### A DDONUAPLUS, CUU ####[address] [address] [facility] Occult Blood,Urine Negative Normal Negative [facility] Comment on above: Order Comment: Name Collection Type:: Clean-Voided Midstream Result Comment: PERF ORMED BY: [facility] [address] [place] [address] PATHOLOGIST EVALUATION ENGINEER NERI COMBS M.D. Performed By: #### A DDONUAPLUS, CUU ####[address] [address] [facility] Other Casts,Urine 1-2 High None Seen [facility] Comment on above: Order Comment: Name Collection Type:: Clean-Voided Midstream Performed By: #### A DDONUAPLUS, CUU ####[address] [address] [facility] pH (U) 6.5 [pH] Normal 5.0-9.0 [facility] Comment on above: Order Comment: Name Collection Type:: Clean-Voided Midstream Performed By: #### A DDONUAPLUS, CUU ####[address] Protein (U) [Mass/Vol] 70 mg/dL High Negative Th e [facility] Comment on above: Order Comment: Name Collection Type:: Clean-Voided Midstream Performed By: #### A DDONUAPLUS, CUU ####[address] RBC,Urine 5-9 High 0-4 [facility] Comment on above: Order Comment: Name Collection Type:: Clean-Voided Midstream Performed By: #### A DDONUAPLUS, CUU ####[address] Specificy [place],Urine 1.014 Normal 1.001-1.030 [facility] Comment on above: Order Comment: Name Collection Type:: Clean-Voided Midstream Performed By: #### A DDONUAPLUS, CUU ####[address] Squamous Epithelial Cell,Urine 1-2 Normal 0-2 [facility] Comment on above: Order Comment: Name Collection Type:: Clean-Voided Midstream Performed By: #### A DDONUAPLUS, CUU ####[place] [id number] [facility] Urobilinogen,Urine Normal Normal Normal [facility] Comment on above: Order Comment: Name Collection Type:: Clean-Voided Midstream Performed By: #### A DDONUAPLUS, CUU ####[place] [id number] [facility] WBC CLUMP, Urine Few High None Seen [facility] Comment on above: Order Comment: Name Collection Type:: Clean-Voided Midstream Performed By: #### A DDONUAPLUS, CUU ####[place] [id number] [facility] WBC,Urine 50-100 High 0-4 [facility] Comment on above: Order Comment: Name Collection Type:: Clean-Voided Midstream Performed By: #### A DDONUAPLUS, CUU ####[facility] [id number] ECG 12 lead ECGon 02-01-2025 ECG 12 lead ECG [facility] [address] [place] [address] [place] [address] Electrocardiograph Report Signed Patient: Nya Jiang MR#: [id number] : 1945 Acct:[id number] Age/Sex: 79 / F ADM Date: 02/01/25 Loc: Room: [address] [place] [address] Type: ADM IN Attending Dr: Carole Kauffman MD Ordering Provider: No Jones MD Date of Service: 02/01/25 ECG/ECG 12 lead ECG: Shortness of Breath/Dyspnea Copies to: Test Reason : Blood Pressure : 147/72 mmHG Vent. Rate : 84 BPM Atrial Rate : 84 BPM P-R Int : 150 ms QRS Dur : 88 ms QT Int : 366 ms P-R-T Axes : 75 74 59 degrees QTcB Int : 432 ms Normal sinus rhythm Nonspecific T wave abnormality No previous ECGs available Confirmed by No Jones MD ([id number]) on 02/02/2025 12:54:02 AM Referred By: Electronically Signed By: No Jones MD Transcribed By: MUS Signed By No Jones MD 01/14 12/09 0054 Normal [facility] Eosinophils Auto (Bld) [#/Vo l]Ordered By: No Jones on 02-01-2025 Eosinophils (Bld) [#/Vol] Automated eosinophil count 0.0-0.45 [facility] Eosinophils/100 WBC Auto (Bl d)Ordered By: No Jones on 02-01-2025 Eosinophils/100 WBC (Bld) Automated eosinophil % . [facility] Epithelial cells.squamous [# /area] in Urine sediment by Automated countOrdered By: No Jones on 02-01-2025 Epithelial cells.squamous Auto (Urine sed) [#/Area] Epithelial cells.squamous [#/area] in Urine sediment by Automated count 0-2 [facility] Erythrocyte distribution wid th Auto (RBC) [Ratio]Ordered By: No Jones on 02-01-2025 Erythrocyte distribution width (RBC) [Ratio] Erythrocyte distribution width [Ratio] by Automated count 11.9-15.3 [facility] Erythrocytes [#/area] in Uri ne sediment by Automated countOrdered By: No Jones on 02-01-2025 RBC Auto (Urine sed) [#/Area] Erythrocytes [#/area] in Urine sediment by Automated count High 0-4 [facility] Fibrin D-dimer [Presence] in Platelet poor plasma by Latex agglutinationOrdered By: No Jones on 02-01-2025 Fibrin D-dimer LA Ql (PPP) Fibrin D-dimer [Presence] in Platelet poor plasma by Latex agglutination 0-243 [facility] Comment on above: The reference range for D-dimer is <243 ng/mL D-dimer units.D-dimer results must be used in conjunction with a clinicalpretest probability (PTP) assessment model for deep veinthrombosis (DVT) and pulmonary embolism (PE). Results <230ng/mL d-dimer units can be used as a negative predictor inpatients with low or moderate probability for DVT/PE.Results above the exclusion threshold of 230 ng/ml D-dimerunits for DVT/PE may indicate the need for furtherdiagnostic testing.D-Dimer can be increased in hospitalized patients due toco-morbid conditions.A hematocrit value greater than 55% may lead to inaccurate results in coagulation testing. Patients having hematocrit values >55% require a special collection tube for coagulation studies. Please contact the laboratory at [phone] for redraw instructions. Glucose [Mass/volume] in Ser um or PlasmaOrdered By: No Jones on 02-01-2025 Glucose [Mass/Vol] Glucose [Mass/volume ] in Serum or Plasma High 70-100 [facility] Comment on above: ADA recommended refe rence rangeRandom Glucose Reference Range is dependent on time and content of last meal. Glucose of more than 200 mg/dL in a nonstressed, ambulatory subject supports the diagnosis of Diabetes Mellitus. Glucose [Mass/volume] in Uri ne by Test stripOrdered By: No Jones on 02-01-2025 Glucose Test strip (U) [Mass/Vol] Glucose [Mass/volume] in Urine by Test strip Normal [facility] Hematocrit Auto (Bld) [Volum e fraction]Ordered By: No Jones on 02-01-2025 Hematocrit (Bld) [Volume fraction] Hematocrit [Volume Fraction] of Blood by Automated count 34.0-46.4 [facility] Hemoglobin Test strip Ql (U) Ordered By: No Jones on 02-01-2025 Hemoglobin Ql (U) Hemoglobin [Presence ] in Urine by Test strip Negative [facility] Hemoglobin [Mass/volume] in BloodOrdered By: No Jones on 02-01-2025 Hemoglobin (Bld) [Mass/Vol] Hemoglobin [Mass/volume] in Blood 11.8-15.4 [facility] Hyaline casts [#/area] in Ur ine sediment by Automated countOrdered By: No Jones on 02-01-2025 Hyaline casts Auto (Urine sed) [#/Area] Hyaline casts [#/area] in Urine sediment by Automated count 0-8 [facility] INR in Platelet poor plasma by Coagulation assayOrdered By: No Jones on 02-01-2025 INR Coag (PPP) [Relative time] INR in Platelet poor plasma by Coagulation assay [facility] Comment on above: INR Therapeutic Rang e A) Pre- and Peroperative OAT started two weeks before surgery. NOT HIP SURGERY: 1.5 - 2.5 HIP SURGERY: 2 - 3B) Primary and secondary prevention of venous THROMBOSIS: 2 - 3C) Active venous thrombosis, pulmonary embolismand prevention of recurrent venous thrombosis: 2 - 3D) Prevention of arterial thromboembolismincluding patients with mechanical heart valves: 3 - 4.5 Ketones Test strip Ql (U)Ord ered By: No Jones on 02-01-2025 Ketones Ql (U) Ketones [Presence] i n Urine by Test strip Negative [facility] Leukocyte clumps [Presence] in Urine by AutomatedOrdered By: No Jones on 02-01-2025 Leukocyte clumps Auto Ql (U) Leukocyte clumps [Presence] in Urine by Automated High None Seen [facility] Leukocyte esterase [Presence ] in Urine by Test stripOrdered By: No Jones on 02-01-2025 Leukocyte esterase Test strip Ql (U) Leukocyte esterase [Presence] in Urine by Test strip High Negative [facility] Leukocytes [#/area] in Urine sediment by Automated countOrdered By: No Jones on 02-01-2025 WBC Auto (Urine sed) [#/Area] Leukocytes [#/area] in Urine sediment by Automated count High 0-4 [facility] Leukocytes [#/volume] correc sheila for nucleated erythrocytes in Blood by Automated counOrdered By: No Jones on 02-01-2025 WBC corrected for nucl RBC Auto (Bld) [#/Vol] Leukocytes [#/volume] corrected for nucleated erythrocytes in Blood by Automated coun 3.8-11.6 [facility] Lymphocytes Auto (Bld) [#/Vo l]Ordered By: No Jones on 02-01-2025 Lymphocytes (Bld) [#/Vol] Lymphocytes [#/volume] in Blood by Automated count 1.00-4.8 [facility] Lymphocytes/100 WBC Auto (Bl d)Ordered By: No Jones on 02-01-2025 Lymphocytes/100 WBC (Bld) Lymphocytes/100 leukocytes in Blood by Automated count . [facility] MCH Auto (RBC) [Entitic mass ]Ordered By: No Jones on 02-01-2025 MCH (RBC) [Entitic mass] MCH [Entitic mass] by Automated count 24.7-34.3 [facility] MCHC Auto (RBC) [Mass/Vol]Or dered By: No Jones on 02-01-2025 MCHC (RBC) [Mass/Vol] MCHC [Mass/volume] by Automated count 32.0-35.0 [facility] MCV Auto (RBC) [Entitic vol] Ordered By: No Jones on 02-01-2025 MCV (RBC) [Entitic vol] MCV [Entitic volume] by Automated count 80-100 [facility] Monocyte distribution width [Entitic volume] in Blood by AutomatedOrdered By: No Jones on 02-01-2025 Monocyte distribution width Auto (Bld) [Entitic vol] Monocyte distribution width [Entitic volume] in Blood by Automated 0.00-20.00 [facility] Monocytes Auto (Bld) [#/Vol] Ordered By: No Jones on 02-01-2025 Monocytes (Bld) [#/Vol] Automated blood monocyte count 0.0-0.8 [facility] Monocytes/100 WBC Auto (Bld) Ordered By: No Jones on 02-01-2025 Monocytes/100 WBC (Bld) Automated monocyte % . [facility] Mucus [Presence] in Urine by AutomatedOrdered By: No Jones on 02-01-2025 Mucus Auto Ql (U) Mucus [Presence] in Urine by Automated [facility] Natriuretic peptide B [Mass/ Vol]Ordered By: No Jones on 02-01-2025 Natriuretic peptide B (Bld) [Mass/Vol] BNP ser/plas 5-100 [facility] Neutrophils Auto (Bld) [#/Vo l]Ordered By: No Jones on 02-01-2025 Neutrophils (Bld) [#/Vol] Neutrophils [#/volume] in Blood by Automated count High 1.8-7.7 [facility] Neutrophils/100 WBC Auto (Bl d)Ordered By: No Jones on 02-01-2025 Neutrophils/100 WBC (Bld) Automated neutrophil % . [facility] Nitrite Test strip Ql (U)Ord ered By: No Jones on 02-01-2025 Nitrite Ql (U) Nitrite [Presence] i n Urine by Test strip Negative [facility] No Panel InformationOrdered By: No Jones on 02-01-2025 Estimated GFR (CKD-EPI) > 60.0 mL/Min [facility] Creatinine Clearance (Chem 53.67 [facility] Nucleated erythrocytes [Pres ence] in Blood by Automated countOrdered By: No Jones on 02-01-2025 Nucleated RBC Auto Ql (Bld) Nucleated erythrocytes [Presence] in Blood by Automated count 0-0.5 [facility] Platelet mean volume Auto (B ld) [Entitic vol]Ordered By: No Jones on 02-01-2025 Platelet mean volume (Bld) [Entitic vol] Platelet mean volume [Entitic volume] in Blood by Automated count 6.3-10.7 [facility] Platelets Auto (Bld) [#/Vol] Ordered By: No Jones on 02-01-2025 Platelets (Bld) [#/Vol] Platelets [#/volume] in Blood by Automated count 150-450 [facility] Potassium [Moles/volume] in Serum or PlasmaOrdered By: No Jones on 02-01-2025 Potassium [Moles/Vol] Potassium [Moles/v olume] in Serum or Plasma 3.5-5.1 [facility] Protein Test strip (U) [Mass /Vol]Ordered By: No Jones on 02-01-2025 Protein (U) [Mass/Vol] Protein [Mass/vol ume] in Urine by Test strip High Negative [facility] Prothrombin Time INRon 02-01 INR Coag (PPP) [Relative time] 1.0 {INR} Normal [facility] Comment on above: Result Comment: INR Therapeutic Range A) Pre- and Peroperative OAT started two weeks before surgery. NOT HIP SURGERY: 1.5 - 2.5 HIP SURGERY: 2 - 3 B) Primary and secondary prevention of venous THROMBOSIS: 2 - 3 C) Active venous thrombosis, pulmonary embolism and prevention of recurrent venous thrombosis: 2 - 3 D) Prevention of arterial thromboembolism including patients with mechanical heart valves: 3 - 4.5 Performed By: #### C K, BNP, CBC, BMP, DDIMER, HS TROP, PT ####[facility] [place] [id number] [facility] PT Coag (PPP) [Time] 11.7 s Normal 9.0-12.9 [facility] Comment on above: Result Comment: A he matocrit value greater than 55% may lead to inaccurate results in coagulation testing. Patients having hematocrit values >55% require a special collection tube for coagulation studies. Please contact the laboratory at [phone] for redraw instructions. Performed By: #### C K, BNP, CBC, BMP, DDIMER, HS TROP, PT ####[facility] [address] [place] [id number] [facility] Prothrombin time (PT)Ordered By: No Jones on 02-01-2025 PT Coag (PPP) [Time] Prothrombin time (PT) 9.0- 12.9 [facility] Comment on above: A hematocrit value g reater than 55% may lead to inaccurate results in coagulation testing. Patients having hematocrit values >55% require a special collection tube for coagulation studies. Please contact the laboratory at [phone] for redraw instructions. RBC Auto (Bld) [#/Vol]Ordere d By: No Jones on 02-01-2025 RBC (Bld) [#/Vol] Erythrocytes [#/volu me] in Blood by Automated count High 3.60-5.00 [facility] Respiratory (Upper) Panel, P CRon 02-01-2025 Respiratory (Upper) Panel, PCR Adenovirus Not detected Bordetella parapertussis Not detected Chlamydia pneumoniae Not detected Coronavirus 229E Not detected Coronavirus HKU1 Not detected Coronavirus NL63 Not detected Coronavirus OC43 Not detected Influenza A Not detected Influenza B Not detected Human Metapneumovirus Not detected Mycoplasma pneumoniae Not detected Parainfluenza Virus 1 Not detected Parainfluenza Virus 2 Not detected Parainfluenza Virus 3 Not detected Parainfluenza Virus 4 Not detected Bordetella pertussis-ptxP Not detected Human Rhino/Enterovirus Not detected Resp. Syncytial Virus Not detected COVID-19 Detected/Not Detected Not detected Blank Space -- FLUA TEST INCLUDES Influenza A tests for the following clinically FLUA TEST INCLUDES significant subtypes: FLUA TEST INCLUDES - Influenza A FLUA TEST INCLUDES - Influenza A H1 FLUA TEST INCLUDES - Influenza A H1 2009 FLUA TEST INCLUDES - Influenza A H3 Blank Space -- PERFORMED BY: [facility] [address] [place] [address] PATHOLOGIST EVALUATION ENGINEER NERI COMBS M.D. Normal [facility] Comment on above: Performed By: #### B IOFIRECOVNOTDE, RESP PANEL UPP. ####[facility] [address] [place] [address] [facility] Respiratory pathogens DNA an d RNA panel - Nasopharynx by UMESH with non-probe detectionOrdered By: No Jones on 02-01-2025 Respiratory pathogens DNA and RNA panel UMESH+non-probe (Nph) Respiratory pathogens DNA and RNA panel - Nasopharynx by UMESH with non-probe detection [facility] Serum or plasma anion gap de terminationOrdered By: No Jones on 02-01-2025 Anion gap [Moles/Vol] Serum or plasma an ion gap determination 6.0-15.0 [facility] Sodium [Moles/volume] in Ser um or PlasmaOrdered By: No Jones on 02-01-2025 Sodium [Moles/Vol] Sodium [Moles/volume ] in Serum or Plasma 136-145 [facility] Specific gravity Test strip (U) [Rel density]Ordered By: No Jones on 02-01-2025 Specific gravity (U) [Rel density] Specific gravity of Urine by Test strip 1.001-1.030 [facility] Troponin I High Sensitivityo n 02-01-2025 Troponin I High Sensitivity 7 Normal 0-15 [facility] Comment on above: Result Comment: The Troponin units of report have been changed to meet the Chest Pain Accreditation requirement, element EC5.M1l2. Troponin units are changed from pg/ml to ng/L. Also, the decimal is removed and results are in whole numbers. PERFORMED BY: [place] [address] PATHOLOGIST EVALUATION ENGINEER NERI COMBS M.D. Performed By: #### H S TROP #### [facility] [address] Troponin I High Sensitivity 9 Normal 0-15 [facility] Comment on above: Result Comment: The Troponin units of report have been changed to meet the Chest Pain Accreditation requirement, element EC5.M1l2. Troponin units are changed from pg/ml to ng/L. Also, the decimal is removed and results are in whole numbers. PERFORMED BY: [place] [address] PATHOLOGIST EVALUATION ENGINEER NERI COMBS M.D. Performed By: #### C K, BNP, CBC, BMP, DDIMER, HS TROP, PT ####[facility] [place] [address] [place] Troponin I.cardiac [Mass/vol ume] in Serum or Plasma by Detection limit <= 0.01 ng/Ordered By: No Jones on 02-01-2025 Troponin I.cardiac DL <= 0.01 ng/mL [Mass/Vol] Troponin I.cardiac [Mass/volume] in Serum or Plasma by Detection limit <= 0.01 ng/ 0-15 [facility] Comment on above: The Troponin units o f report have been changed to meet the Chest Pain Accreditation requirement, element EC5.M1l2. Troponin units are changed from pg/ml to ng/L. Also, the decimal is removed and results are in whole numbers. Urea nitrogen [Mass/volume] in Serum or PlasmaOrdered By: No Jones on 02-01-2025 Urea nitrogen [Mass/Vol] Urea nitrogen [Mass/volume] in Serum or Plasma 7- [facility] Urine Cultureon 02-01-2025 Bacteria identified Cx Nom (U) 75,000 colonies/ml mixed bacterial skin contaminants including mixed gram negative bacilli - 2 Days PERFORMED BY: [place] [address] PATHOLOGIST EVALUATION ENGINEER NERI Billy [facility] Comment on above: Performed By: #### A ANDRA LARIOS ####[facility] Urine cultureOrdered By: Adrian Jones on 02-01-2025 Bacteria identified Cx Nom (U) Urine culture [facility] Urobilinogen Test strip (U) [Mass/Vol]Ordered By: No Jones on 02-01-2025 Urobilinogen (U) [Mass/Vol] Urobilinogen [Mass/volume] in Urine by Test strip Normal [facility] WBC Auto (Bld) [#/Vol]Ordere d By: No Jones on 02-01-2025 WBC (Bld) [#/Vol] Leukocytes [#/volume ] in Blood by Automated count 3.8-11.6 [facility] X-ray reportOrdered By: Juan Moura on 02-01-2025 Study report [facility] [address] [place] [id number] XRay Report Signed Patient: Nya Jiang MR#: [id number] : 1945 Acct:[id number] Age/Sex: 79 / F ADM Date: Loc: ER Room: Type: REG ER Attending Dr: Copies to: No Jones MD~ Ordering Provider: No Jones MD Date of Service: 02/01/25 XR/XR knee RT 4V*: Knee/thigh pain ([id number]) XR/XR femur RT 2V*: knee pain, thigh pain ([id number]) XR/XR pelvis 1-2V: PAIN AP PELVIS: Right femur 2 views, right knee 2 views CLINICAL HISTORY: Right leg pain for 2 days. Low back pain. No known injury. COMPARISON: None Pelvis: Mild degenerative changes involving the SI joints and visualized lower lumbar spine. Additional degenerative changes seen involving the pubic symphysis. Mild degenerative changes of the hips without acute bony process. Right femur: Vascular calcifications are present. No acute bony process is seen. Right knee: No acute bony process is seen. Joint spaces appear maintained. XR/XR pelvis 1-2V IMPRESSION: DEGENERATIVE CHANGES INVOLVING THE PELVIS AND HIPS WITHOUT ACUTE BONY PROCESS INVOLVING THE PELVIS, RIGHT FEMUR OR RIGHT KNEE. Impression dictated by: Alistair Moura Jr., Aida02/01/2025 2:33 PM Dictation Location: [place] [address] Transcribed By: [facility] 02/01/25 1433 Dictated By: Alistair Moura Jr, DO 02/01/25 1432 Signed By: 02/01/25 1433 [facility] Study report [facility] [address] [place] [address] [place] [address] XRay Report Signed Patient: Nya Jiang MR#: [id number] : 1945 Acct:[id number] Age/Sex: 79 / F ADM Date: 5 Loc: ER Room: Type: PRE ER Attending Dr: Copies to: No Jones MD~ Ordering Provider: No Jones MD Date of Service: 02/01/25 XR/XR chest 2V*: Shortness of Breath/Dyspnea Chest 2 views CLINICAL HISTORY: Productive cough shortness of breath. Leg pain. COMPARISON: None FINDINGS: Heart normal in size. Lungs are clear. No free air. XR/XR chest 2V* IMPRESSION: NO ACUTE CARDIOPULMONARY ABNORMALITY. Impression dictated by: Alistair Moura Jr., D.O.02/01/2025 11:28 AM Dictation Location: [facility]PC-22 Transcribed By: LEVI 02/01/25 1128 Dictated By: Alistair Moura Jr DO 02/01/25 1128 Signed By: 02/01/25 1128 [facility] XR chest 2V*on 02-01-2025 XR chest 2V* [place] [address] XRay Report Signed Patient: Nya Jiang MR#: [id number] : 1945 Acct:[id number] Age/Sex: 79 / F ADM Date: 02/01/25 Loc: ER Room: Type: PRE ER Attending Dr: Copies to: No Jones MD Ordering Provider: No Jones MD Date of Service: 02/01/25 XR/XR chest 2V*: Shortness of Breath/Dyspnea Chest 2 views CLINICAL HISTORY: Productive cough shortness of breath. Leg pain. COMPARISON: None FINDINGS: Heart normal in size. Lungs are clear. No free air. XR/XR chest 2V* IMPRESSION: NO ACUTE CARDIOPULMONARY ABNORMALITY. Impression dictated by: Alistair Moura Jr., D.O.02/01/2025 11:28 AM Dictation Location: [facility]22 Transcribed By: LEVI 02/01/25 1128 Dictated By: Alistair Moura Jr DO 02/01/25 1128 Signed By: 02/01/25 1128 Normal [facility] XR femur RT 2V*on 02-01-2025 XR femur RT 2V* [facility] [address] [place] [id number] XRay Report Signed Patient: Nya Jiang MR#: [id number] : 1945 Acct:[id number] Age/Sex: 79 / F ADM Date: 02/01/25 Loc: ER Room: Type: [facility] ER Attending Dr: Copies to: No Jones MD Ordering Provider: No Jones MD Date of Service: 02/01/25 XR/XR knee RT 4V*: Knee/thigh pain ([id number]) XR/XR femur RT 2V*: knee pain, thigh pain ([id number]) XR/XR pelvis 1-2V: PAIN AP PELVIS: Right femur 2 views, right knee 2 views CLINICAL HISTORY: Right leg pain for 2 days. Low back pain. No known injury. COMPARISON: None Pelvis: Mild degenerative changes involving the SI joints and visualized lower lumbar spine. Additional degenerative changes seen involving the pubic symphysis. Mild degenerative changes of the hips without acute bony process. Right femur: Vascular calcifications are present. No acute bony process is seen. Right knee: No acute bony process is seen. Joint spaces appear maintained. XR/XR pelvis 1-2V IMPRESSION: DEGENERATIVE CHANGES INVOLVING THE PELVIS AND HIPS WITHOUT ACUTE BONY PROCESS INVOLVING THE PELVIS, RIGHT FEMUR OR RIGHT KNEE. Impression dictated by: Alistair Moura Jr., D.O.02/01/2025 2:33 PM Dictation Location: [place] [address] Transcribed By: [facility] 02/01/25 1433 Dictated By: Alistair Moura Jr, DO 02/01/25 1432 Signed By: 02/01/25 1433 Normal [facility] pH Test strip (U)Ordered By: No Jones on 02-01-2025 pH (U) pH of Urine by Test strip 5.0-9.0 [facility] Urine Cultureon 01-20-2025 Bacteria identified Cx Nom (U) Results faxed to [facility] at 1833 on 01/24/25. Urine Culture Results >100,000 col/ml Mixed Latisha with Mixed Gram Neg Bacilli PERFORMED BY: [facility] [address] [place] [address] PATHOLOGIST EVALUATION ENGINEER NERI COMBS M.D. Normal [facility] Comment on above: Performed By: #### C UU #### [facility] [address] Urine cultureOrdered By: Clare Cardenas on 01-20-2025 Bacteria identified Cx Nom (U) Urine culture [facility] Basophils Auto (Bld) [#/Vol] on 01-19-2025 Basophils (Bld) [#/Vol] Automated basophil count 0.0-0.1 [facility] Basophils/100 WBC Auto (Bld) on 01-19-2025 Basophils/100 WBC (Bld) Automated basophil % 0.2-2.0 [facility] Eosinophils/100 WBC Auto (Bl d)on 01-19-2025 Eosinophils/100 WBC (Bld) Automated eosinophil % 0.9-7.0 [facility] Erythrocyte distribution wid th Auto (RBC) [Ratio]on 01-19-2025 Erythrocyte distribution width (RBC) [Ratio] Erythrocyte distribution width [Ratio] by Automated count 11.0-15.0 [facility] Estimated glomerular filtrat ion rate (GFR) non- Americanon 01-19-2025 GFR/1.73 sq M.predicted among non-blacks MDRD (S/P/Bld) [Vol rate/Area] Estimated glomerular filtration rate (GFR) non- >=60 mL/min/1.73 m 2 [facility] Globulin Calc (S) [Mass/Vol] on 01-19-2025 Globulin (S) [Mass/Vol] Serum globulin measurement by calculation (mass/volume) [facility] Hematocrit Auto (Bld) [Volum e fraction]on 01-19-2025 Hematocrit (Bld) [Volume fraction] Hematocrit [Volume Fraction] of Blood by Automated count 36.0-48.0 [facility] Hemoglobin [Mass/volume] in Bloodon 01-19-2025 Hemoglobin (Bld) [Mass/Vol] Hemoglobin [Mass/volume] in Blood 12.0-16.0 [facility] Laboratory - Chemistry and C hemistry - challengeon 01-19-2025 Albumin [Mass/Vol] 3.4 g/dL 3.4-5.0 [facility] ALP [Catalytic activity/Vol] 116 U/L 46-116 [facility] ALT [Catalytic activity/Vol] 17 U/L 14-59 [facility] AST [Catalytic activity/Vol] 17 U/L 15-37 [facility] Bilirubin [Mass/Vol] 0.4 mg/dL 0.2-1.0 [facility] Bilirubin.direct [Mass/Vol] 0.1 mg/dL 0.0-0.2 [facility] Calcium [Mass/Vol] 9.0 mg/dL 8.5-10.1 [facility] Chloride [Moles/Vol] 103 mmol/L 98-107 [facility] CO2 [Moles/Vol] 33.8 mmol/L High 21.0-32.0 [facility] Creatinine [Mass/Vol] 0.78 mg/dL 0.55-1.02 [facility] GFR/1.73 sq M.predicted MDRD (S/P/Bld) [Vol rate/Area] mL/min/{1.73_m2} >=60 mL/min/1.73 m 2 [facility] Glucose [Mass/Vol] 127 mg/dL High 74-106 [facility] Lactate [Moles/Vol] 1.0 mmol/L 0.4-2.0 [facility] Lipase [Catalytic activity/Vol] 36.0 U/L 16.0-77.0 [facility] Potassium [Moles/Vol] 4.2 mmol/L 3.5-5.1 [facility] Protein [Mass/Vol] 7.2 g/dL 6.4-8.2 [facility] Sodium [Moles/Vol] 140 mmol/L 136-145 [facility] Urea nitrogen [Mass/Vol] 12.0 mg/dL 7.0-18.0 [facility] Urea nitrogen/Creatinine [Mass ratio] 15.4 mg/mg [facility] Laboratory - Hematology and Cell countson 01-19-2025 Immature granulocytes/100 WBC (Bld) 0.3 % 0.0-0.5 [facility] Leukocytes [#/volume] correc sheila for nucleated erythrocytes in Blood by Automated counon 01-19-2025 WBC corrected for nucl RBC Auto (Bld) [#/Vol] Leukocytes [#/volume] corrected for nucleated erythrocytes in Blood by Automated coun 4.0-11.0 [facility] Lymphocytes Auto (Bld) [#/Vo l]on 01-19-2025 Lymphocytes (Bld) [#/Vol] Lymphocytes [#/volume] in Blood by Automated count 1.2-3.8 [facility] Lymphocytes/100 WBC Auto (Bl d)on 01-19-2025 Lymphocytes/100 WBC (Bld) Lymphocytes/100 leukocytes in Blood by Automated count 20.5-60.0 [facility] MCH Auto (RBC) [Entitic mass ]on 01-19-2025 MCH (RBC) [Entitic mass] MCH [Entitic mass] by Automated count 26.7-34.0 [facility] MCHC Auto (RBC) [Mass/Vol]on 01-19-2025 MCHC (RBC) [Mass/Vol] MCHC [Mass/volume] by Automated count 29.9-35.2 [facility] MCV Auto (RBC) [Entitic vol] on 01-19-2025 MCV (RBC) [Entitic vol] MCV [Entitic volume] by Automated count 81.0-99.0 [facility] Monocytes Auto (Bld) [#/Vol] on 01-19-2025 Monocytes (Bld) [#/Vol] Automated blood monocyte count High 0.3-0.8 [facility] Monocytes/100 WBC Auto (Bld) on 01-19-2025 Monocytes/100 WBC (Bld) Automated monocyte % 1.7-12.0 [facility] Neutrophils Auto (Bld) [#/Vo l]on 01-19-2025 Neutrophils (Bld) [#/Vol] Neutrophils [#/volume] in Blood by Automated count High 1.4-6.5 [facility] Neutrophils/100 WBC Auto (Bl d)on 01-19-2025 Neutrophils/100 WBC (Bld) Automated neutrophil % 43.0-75.0 [facility] No Panel Informationon 01-19 Eosinophils # (Auto) 0.2 10 3/uL 0.0-0.7 [facility] Immature Granulocyte # (Auto) 0.03 10 3/uL 0.00-0.03 [facility] Platelet mean volume Auto (B ld) [Entitic vol]on 01-19-2025 Platelet mean volume (Bld) [Entitic vol] Platelet mean volume [Entitic volume] in Blood by Automated count Low 9.5-13.5 [facility] Platelets Auto (Bld) [#/Vol] on 01-19-2025 Platelets (Bld) [#/Vol] Platelets [#/volume] in Blood by Automated count 150-450 [facility] RBC Auto (Bld) [#/Vol]on RBC (Bld) [#/Vol] Erythrocytes [#/volu me] in Blood by Automated count 4.20-5.40 [facility] Serum or plasma albumin/glob ulin mass ratioon 01-19-2025 Albumin/Globulin [Mass ratio] Serum or plasma albumin/globulin mass ratio [facility] Serum or plasma anion gap de terminationon 01-19-2025 Anion gap [Moles/Vol] Serum or plasma an ion gap determination [facility] Basophils Auto (Bld) [#/Vol] on 08-09-2024 Basophils (Bld) [#/Vol] 0.1 10 3/uL 0.0-0.1 [facility] Basophils/100 WBC Auto (Bld) on 08-09-2024 Basophils/100 WBC (Bld) 0.7 % 0.2-2.0 [facility] Eosinophils/100 WBC Auto (Bl d)on 08-09-2024 Eosinophils/100 WBC (Bld) 3.2 % 0.9-7.0 [facility] Erythrocyte distribution wid th Auto (RBC) [Ratio]on 08-09-2024 Erythrocyte distribution width (RBC) [Ratio] 12.2 % 11.0-15.0 [facility] Estimated glomerular filtrat ion rate (GFR) non- Americanon 08-09-2024 GFR/1.73 sq M.predicted among non-blacks MDRD (S/P/Bld) [Vol rate/Area] mL/min/{1.73_m2} >=60 [facility] Globulin Calc (S) [Mass/Vol] on 09-25-2024 Globulin (S) [Mass/Vol] 3.7 g/dL [facility] Hematocrit Auto (Bld) [Volum e fraction]on 08-09-2024 Hematocrit (Bld) [Volume fraction] 45.1 % 36.0-48.0 [facility] Hemoglobin [Mass/volume] in Bloodon 08-09-2024 Hemoglobin (Bld) [Mass/Vol] 15.2 g/dL 12.0-16.0 [facility] Laboratory - Chemistry and C hemistry - challengeon 08-09-2024 Albumin [Mass/Vol] 3.5 g/dL 3.4-5.0 [facility] ALP [Catalytic activity/Vol] 100 U/L 46-116 [facility] ALT [Catalytic activity/Vol] 17 U/L 14-59 [facility] AST [Catalytic activity/Vol] 14 U/L Low 15-37 [facility] Bilirubin [Mass/Vol] 0.5 mg/dL 0.2-1.0 [facility] Calcium [Mass/Vol] 9.6 mg/dL 8.5-10.1 [facility] Chloride [Moles/Vol] 100 mmol/L 98-107 [facility] CO2 [Moles/Vol] 35.8 mmol/L High 21.0-32.0 [facility] Creatinine [Mass/Vol] 0.81 mg/dL 0.55-1.02 [facility] Ferritin [Mass/Vol] 49.0 ng/mL 8.0-252.0 [facility] GFR/1.73 sq M.predicted MDRD (S/P/Bld) [Vol rate/Area] mL/min/{1.73_m2} >=60 [facility] Glucose [Mass/Vol] 156 mg/dL High 74-106 [facility] Potassium [Moles/Vol] 3.9 mmol/L 3.5-5.1 [facility] Protein [Mass/Vol] 7.2 g/dL 6.4-8.2 [facility] Sodium [Moles/Vol] 138 mmol/L 136-145 [facility] TSH Qn 2.316 m[IU]/L 0.358-3.740 [facility] Urea nitrogen [Mass/Vol] 14.0 mg/dL 7.0-18.0 [facility] Urea nitrogen/Creatinine [Mass ratio] 17.3 mg/mg [facility] Laboratory - Hematology and Cell countson 08-09-2024 Immature granulocytes/100 WBC (Bld) 0.2 % 0.0-0.5 [facility] Leukocytes [#/volume] correc sheila for nucleated erythrocytes in Blood by Automated counon 08-09-2024 WBC corrected for nucl RBC Auto (Bld) [#/Vol] 9.6 10 3/uL 4.0-11.0 [facility] Lymphocytes Auto (Bld) [#/Vo l]on 08-09-2024 Lymphocytes (Bld) [#/Vol] 2.6 10 3/uL 1.2-3.8 [facility] Lymphocytes/100 WBC Auto (Bl d)on 08-09-2024 Lymphocytes/100 WBC (Bld) 26.9 % 20.5-60.0 [facility] MCH Auto (RBC) [Entitic mass ]on 08-09-2024 MCH (RBC) [Entitic mass] 28.5 pg 26.7-34.0 [facility] MCHC Auto (RBC) [Mass/Vol]on 08-09-2024 MCHC (RBC) [Mass/Vol] 33.7 g/dL 29.9-35.2 [facility] MCV Auto (RBC) [Entitic vol] on 08-09-2024 MCV (RBC) [Entitic vol] 84.6 fL 81.0-99.0 [facility] Monocytes Auto (Bld) [#/Vol] on 08-09-2024 Monocytes (Bld) [#/Vol] 0.8 10 3/uL 0.3-0.8 [facility] Monocytes/100 WBC Auto (Bld) on 08-09-2024 Monocytes/100 WBC (Bld) 8.1 % 1.7-12.0 [facility] Neutrophils Auto (Bld) [#/Vo l]on 08-09-2024 Neutrophils (Bld) [#/Vol] 5.8 10 3/uL 1.4-6.5 [facility] Neutrophils/100 WBC Auto (Bl d)on 08-09-2024 Neutrophils/100 WBC (Bld) 60.9 % 43.0-75.0 [facility] No Panel Informationon 08-09 Eosinophils # (Auto) 0.3 10 3/uL 0.0-0.7 [facility] Immature Granulocyte # (Auto) 0.02 10 3/uL 0.00-0.03 [facility] Platelet mean volume Auto (B ld) [Entitic vol]on 08-09-2024 Platelet mean volume (Bld) [Entitic vol] 8.4 fL Low 9.5-13.5 [facility] Platelets Auto (Bld) [#/Vol] on 08-09-2024 Platelets (Bld) [#/Vol] 307 10 3/uL 150-450 [facility] RBC Auto (Bld) [#/Vol]on RBC (Bld) [#/Vol] 5.33 10 6/uL 4.20-5.40 [facility] Serum or plasma albumin/glob ulin mass ratioon 08-09-2024 Albumin/Globulin [Mass ratio] 0.9 {ratio} [facility] Serum or plasma anion gap de terminationon 08-09-2024 Anion gap [Moles/Vol] 6.1 mmol/L [facility] Basophils Auto (Bld) [#/Vol] Ordered By: Shawn Camarillo on 03-28-2023 Basophils (Bld) [#/Vol] 0.1 10*3/uL 0.0-0.2 [facility] Basophils/100 WBC Auto (Bld) Ordered By: Shawn Camarillo on 03-28-2023 Basophils/100 WBC (Bld) 1.0 % . [facility] COVID-19 Detected/Not Detect edOrdered By: Shawn Camarillo on 03-28-2023 SARS-CoV-2 (COVID-19) RNA UMESH+non-probe Ql (Nph) Not detected Not Detecte [facility] Comment on above: This is a duplicate RP2.1 COVID (PCR) result to be used for statistical tracking purpose only. Calcium [Mass/volume] in Ser um or PlasmaOrdered By: Shawn Camarillo on 03-28-2023 Calcium [Mass/Vol] 8.8 mg/dL 8.6-10.3 [facility] Carbon dioxide, total [Moles /volume] in Serum or PlasmaOrdered By: Shawn Camarillo on 03-28-2023 CO2 [Moles/Vol] 32.8 mmol/L 21.0-31.0 [facility] Chloride [Moles/volume] in S nhi or PlasmaOrdered By: Shawn Camarillo on 03-28-2023 Chloride [Moles/Vol] 102 mmol/L 98-107 [facility] Creatinine [Mass/volume] in Serum or PlasmaOrdered By: Shawn Camarillo on 03-28-2023 Creatinine [Mass/Vol] 0.73 mg/dL 0.60-1.20 [facility] Eosinophils Auto (Bld) [#/Vo l]Ordered By: Shawn Camarillo on 03-28-2023 Eosinophils (Bld) [#/Vol] 0.3 10*3/uL 0.0-0.45 [facility] Eosinophils/100 WBC Auto (Bl d)Ordered By: Shawn Camarillo on 03-28-2023 Eosinophils/100 WBC (Bld) 3.2 % . [facility] Erythrocyte distribution wid th Auto (RBC) [Ratio]Ordered By: Shawn Camarillo on 03-28-2023 Erythrocyte distribution width (RBC) [Ratio] 12.8 % 11.9-15.3 [facility] Glucose [Mass/volume] in Ser um or PlasmaOrdered By: Shawn Camarillo on 03-28-2023 Glucose [Mass/Vol] 113 mg/dL 70-100 [facility] Comment on above: ADA recommended refe rence rangeRandom Glucose Reference Range is dependent on time and content of last meal. Glucose of more than 200 mg/dL in a nonstressed, ambulatory subject supports the diagnosis of Diabetes Mellitus. Hematocrit Auto (Bld) [Volum e fraction]Ordered By: Shawn Camarillo on 03-28-2023 Hematocrit (Bld) [Volume fraction] 45.9 % 34.0-46.4 [facility] Hemoglobin [Mass/volume] in BloodOrdered By: Shawn Camarillo on 03-28-2023 Hemoglobin (Bld) [Mass/Vol] 15.5 g/dL 11.8-15.4 [facility] Leukocytes [#/volume] correc sheila for nucleated erythrocytes in Blood by Automated counOrdered By: Shawn Camarillo on 03-28-2023 WBC corrected for nucl RBC Auto (Bld) [#/Vol] 8.6 10*3/uL 3.8-11.6 [facility] Lymphocytes Auto (Bld) [#/Vo l]Ordered By: Shawn Camarillo on 03-28-2023 Lymphocytes (Bld) [#/Vol] 2.0 10*3/uL 1.00-4.8 [facility] Lymphocytes/100 WBC Auto (Bl d)Ordered By: Shawn Camarillo on 03-28-2023 Lymphocytes/100 WBC (Bld) 23.9 % . [facility] MCH Auto (RBC) [Entitic mass ]Ordered By: Shawn Camarillo on 03-28-2023 MCH (RBC) [Entitic mass] 28.2 pg 24.7-34.3 [facility] MCHC Auto (RBC) [Mass/Vol]Or dered By: Shawn Camarillo on 03-28-2023 MCHC (RBC) [Mass/Vol] 33.8 g/dL 32.0-35.0 [facility] MCV Auto (RBC) [Entitic vol] Ordered By: Shawn Camarillo on 03-28-2023 MCV (RBC) [Entitic vol] 83.6 fL 80-100 [facility] Monocyte distribution width [Entitic volume] in Blood by AutomatedOrdered By: Shawn Camarillo on 03-28-2023 Monocyte distribution width Auto (Bld) [Entitic vol] 17.31 % 0.00-20.00 [facility] Monocytes Auto (Bld) [#/Vol] Ordered By: Shawn Camarillo on 03-28-2023 Monocytes (Bld) [#/Vol] 0.6 10*3/uL 0.0-0.8 [facility] Monocytes/100 WBC Auto (Bld) Ordered By: Shawn Camarillo on 03-28-2023 Monocytes/100 WBC (Bld) 6.9 % . [facility] Neutrophils Auto (Bld) [#/Vo l]Ordered By: Shawn Camarillo on 03-28-2023 Neutrophils (Bld) [#/Vol] 5.6 10*3/uL 1.8-7.7 [facility] Neutrophils/100 WBC Auto (Bl d)Ordered By: Shawn Camarillo on 03-28-2023 Neutrophils/100 WBC (Bld) 65.0 % . [facility] No Panel InformationOrdered By: Shawn Camarillo on 03-28-2023 Estimated GFR (CKD-EPI) > 60.0 mL/Min [facility] Creatinine Clearance (Chem 56.10 [facility] Nucleated erythrocytes [Pres ence] in Blood by Automated countOrdered By: Shawn Camarillo on 03-28-2023 Nucleated RBC Auto Ql (Bld) 0.0 /100{WBC} 0-0.5 [facility] Platelet mean volume Auto (B ld) [Entitic vol]Ordered By: Shawn Camarillo on 03-28-2023 Platelet mean volume (Bld) [Entitic vol] 6.3 fL 6.3-10.7 [facility] Platelets Auto (Bld) [#/Vol] Ordered By: Shawn Camarillo on 03-28-2023 Platelets (Bld) [#/Vol] 323 10*3/uL 150-450 [facility] Potassium [Moles/volume] in Serum or PlasmaOrdered By: Shawn Camarillo on 03-28-2023 Potassium [Moles/Vol] 4.2 mmol/L 3.5-5.1 [facility] RBC Auto (Bld) [#/Vol]Ordere d By: Shawn Camarillo on 03-28-2023 RBC (Bld) [#/Vol] 5.49 10*6/uL 3.60-5.00 [facility] Respiratory pathogens DNA an d RNA panel - Nasopharynx by UMESH with non-probe detectionOrdered By: Shawn Camarillo on 03-28-2023 Respiratory pathogens DNA and RNA panel UMESH+non-probe (Nph) [facility] Serum or plasma anion gap de terminationOrdered By: Shawn Camarillo on 03-28-2023 Anion gap [Moles/Vol] 9.4 mmol/L 6.0-15.0 [facility] Sodium [Moles/volume] in Ser um or PlasmaOrdered By: Shawn Camarillo on 03-28-2023 Sodium [Moles/Vol] 140 mmol/L 136-145 [facility] Urea nitrogen [Mass/volume] in Serum or PlasmaOrdered By: Shawn Camarillo on 03-28-2023 Urea nitrogen [Mass/Vol] 10 mg/dL 7-25 [facility] WBC Auto (Bld) [#/Vol]Ordere d By: Shawn Camarillo on 03-28-2023 WBC (Bld) [#/Vol] 8.6 10*3/uL 3.8-11.6 [facility] CBC AUTO DIFFon 01-11-2023 BASO # 0.1 103/ul Normal 0.0-0.1 [facility] Comment on above: Performed By: #### U MICRO, ERUR #### [facility] [address] [place] [address] Dr. Otf Rodriguez Basophils/100 WBC (Bld) 0.5 % Normal 0.2-2.0 [facility] Comment on above: Performed By: #### U MICRO, ERUR #### [facility] [address] [place] [address] Dr. Otf Rodriguez EO # 0.3 103/ul Normal 0.0-0.7 [facility] Comment on above: Performed By: #### U MICRO, ERUR #### [facility] [address] [address] [address] Otf Rodriguez Eosinophils/100 WBC (Bld) 1.8 % Normal 0.9-7.0 [facility] Comment on above: Performed By: #### U MICRO, ERUR #### [facility] [address] [place] [address] Dr. Otf Rodriguez Erythrocyte distribution width (RBC) [Ratio] 12.4 % Normal 11.0-15.0 [facility] Comment on above: Performed By: #### U MICRO, ERUR #### [facility] [address] [place], [place] [id number] Dr. Otf Rodriguez Hematocrit (Bld) [Volume fraction] 46.0 % Normal 36.0-48.0 [facility] Comment on above: Performed By: #### U MICRO, ERUR #### [facility] [address] [place] [address] Dr. Otf Rodriguez Hemoglobin (Bld) [Mass/Vol] 16.0 g/dL Normal 12.0-16.0 [facility] Comment on above: Performed By: #### U MICRO, ERUR #### [facility] [address] [place] [address] Dr. Otf Rodriguez IG # 0.05 10e3/ul Critically high 0.00-0.03 [facility] Comment on above: Performed By: #### U MICRO, ERUR #### [facility] [address] [place] [address] Dr. Otf Rodriguez IG % 0.3 % Normal 0.0-0.5 [facility] Comment on above: Performed By: #### U MICRO, ERUR #### [facility] [address] [place] [address] Dr. Otf Rodriguez LYMPH # 2.5 103/ul Normal 1.2-3.8 [facility] Comment on above: Performed By: #### U MICRO, ERUR #### [facility] [address] [place] [address] Dr. Otf Rodriguez Lymphocytes/100 WBC (Bld) 16.8 % Critically low 20.5-60.0 [facility] Comment on above: Performed By: #### U MICRO, ERUR #### [facility] [address] [place] [address] Dr. Otf Rodriguez MANUAL DIFF REQ NO Normal [facility] Comment on above: Performed By: #### U MICRO, ERUR #### [facility] [address] [place] [address] Dr. Otf Rodriguez MCH (RBC) [Entitic mass] 28.7 pg Normal 26.7-34.0 [facility] Comment on above: Performed By: #### U MICRO, ERUR #### [facility] [address] [address] [address] Otf Rodriguez MCHC (RBC) [Mass/Vol] 34.8 g/dL Normal 29.9-35.2 [facility] Comment on above: Performed By: #### U MICRO, ERUR #### [facility] [address] [address] [address] Otf Rodriguez MCV (RBC) [Entitic vol] 82.4 fL Normal 81.0-99.0 [facility] Comment on above: Performed By: #### U MICRO, ERUR #### [facility] [address] [address] [address] Otf Rodriguez MONO # 1.0 103/ul Critically high 0.3-0.8 [facility] Comment on above: Performed By: #### U MICRO, ERUR #### [facility] [address] [place] [address] Dr. Otf Rodriguez Monocytes/100 WBC (Bld) 6.5 % Normal 1.7-12.0 [facility] Comment on above: Performed By: #### U MICRO, ERUR #### [facility] [address] [address] [address] Otf Rodriguez NEUT # 11.2 103/ul Critically high 1.4-6.5 [facility] Comment on above: Performed By: #### U MICRO, ERUR #### [facility] [address] [place] [address] Dr. Otf Rodriguez Neutrophils/100 WBC (Bld) 74.1 % Normal 43.0-75.0 [facility] Comment on above: Performed By: #### U MICRO, ERUR #### [facility] [address] [address] [address] Otf Rodriguez Platelet mean volume (Bld) [Entitic vol] 8.1 fL Critically low 9.5-13.5 [facility] Comment on above: Performed By: #### U MICRO, ERUR #### [facility] [address] [address] [address] Otf Rodriguez PLT 338 103/ul Normal 150-450 [facility] Comment on above: Performed By: #### U MICRO, ERUR #### [facility] [address] [place], [place] [address] Dr. Otf Rodriguez RBC 5.58 106/ul Critically high 4.20-5.40 [facility] Comment on above: Performed By: #### U MICRO, ERUR #### [facility] [address] [place], [place] [address] Dr. Otf Rodriguez WBC 15.1 103/ul Critically high 4.0-11.0 [facility] Comment on above: Performed By: #### U MICRO, ERUR #### [facility] [address] [place], [place] [address] ABD/PELV W CONon 01-11-[address] ABD/PELV W CON EXAMINATION: CT ABD/ PELV W CON HISTORY: Chronic abdominal bloating, worse [...] normal limits. ABDOMEN/PELVIS: Liver: Within normal limits. Gallbladder/biliary: Within normal limits. Spleen: Stable nonspecific too [...] IMPRESSION: 1. No CT evidence for acute intra-abdominal/pelvic process. 2. Colonic diverticulosis. 3. Right renal cyst. Electronically authenticated by: CELENA WATSON Date: 2023-01-11 19:32 Normal [facility] ER URINE PROFILEon 3 Bilirubin Ql (U) Negative Normal NEGATIVE [facility] Comment on above: Performed By: #### U MICRO, ERUR #### [facility] [address] [place] [address] Dr. Otf Rodriguez Clarity (U) CLEAR Normal CLEAR [facility] Comment on above: Performed By: #### U MICRO, ERUR #### [facility] [address] [place] [address] Dr. Otf Rodriguez Color (U) LT. YELLOW Normal YELLOW [facility] Comment on above: Performed By: #### U MICRO, ERUR #### [facility] [address] [place] [address] Dr. Otf Rodriguez ERUCHARUD A micrscopic examina tion will be performed if indicated. Normal [facility] Comment on above: Performed By: #### U MICRO, ERUR #### [facility] [address] [address] [address] Otf Rodriguez Glucose Ql (U) Negative Normal NEGATIVE [facility] Comment on above: Performed By: #### U MICRO, ERUR #### [facility] [address] [address] [address] Otf Rodriguez Hemoglobin Ql (U) TRACE-LYSED Abnormal NEGATIVE [facility] Comment on above: Performed By: #### U MICRO, ERUR #### [facility] [address] [place] [address] Dr. Otf Rodriguez Ketones Ql (U) Negative Normal NEGATIVE [facility] Comment on above: Performed By: #### U MICRO, ERUR #### [facility] [address] [place] [address] Dr. Otf Rodriguez LEUKOCYTES TRACE Abnormal NEGATIVE [facility] Comment on above: Performed By: #### U MICRO, ERUR #### [facility] [address] [place] [address] Dr. Otf Rodriguez Nitrite Ql (U) Negative Normal NEGATIVE [facility] Comment on above: Performed By: #### U MICRO, ERUR #### [facility] [address] [place] [address] Dr. Otf Rodriguez pH (U) 7.0 [pH] Normal 5-9 [facility] Comment on above: Performed By: #### U MICRO, ERUR #### [facility] [address] [place] [address] Dr. Otf Rodriguez Protein (U) [Mass/Vol] 30 mg/dL Abnormal NEGAT SIL/ TRACE [facility] Comment on above: Performed By: #### U MICRO, ERUR #### [facility] [address] [place] [address] Dr. Otf Rodriguez SPEC GRAVITY 1.010 Normal 1.005-<=1.0 25 [facility] Comment on above: Performed By: #### U MICRO, ERUR #### [facility] [address] [place] [address] Dr. Otf Rodriguez UR MICRO IND INDICATED Normal [facility] Comment on above: Performed By: #### U MICRO, ERUR #### [facility] [address] [place] [address] Dr. Otf Rodriguez Urobilinogen Qn (U) 0.2 {Tian'U}/dL Normal 0.2 - 1. 0 [facility] Comment on above: Performed By: #### U MICRO, ERUR #### [facility] [address] [place] [address] Dr. Otf Rodriguez LACTATE/LACTIC ACIDon 2022 Lactate [Moles/Vol] 0.6 mmol/L Normal 0.4-1.9 [facility] Comment on above: Performed By: #### L ACT #### [facility] [address] [address] [address] Otf Rodriguez LIPASEon 01-11-2023 Lipase [Catalytic activity/Vol] 159.0 U/L Normal 73.0-393.0 [facility] Comment on above: Performed By: #### U MICRO, ERUR #### [facility] [address] [place] [address] Dr. Otf Rodriguez PROF 14(COMP METB)on 023 Albumin [Mass/Vol] 4.0 g/dL Normal 3.4-5.0 [facility] Comment on above: Performed By: #### U MICRO, ERUR #### [facility] [address] [place] [address] Dr. Otf Rodriguez Albumin/Globulin [Mass ratio] 1.1 {ratio} Normal [facility] Comment on above: Performed By: #### U MICRO, ERUR #### [facility] [address] [place] [address] Dr. Otf Rodriguez ALP [Catalytic activity/Vol] 128 U/L Critically high 46-116 [facility] Comment on above: Performed By: #### U MICRO, ERUR #### [facility] [address] [place] [address] Dr. Otf Rodriguez ALT [Catalytic activity/Vol] 20 U/L Normal 14-59 [facility] Comment on above: Performed By: #### U MICRO, ERUR #### [facility] [address] [address] [address] Otf Rodriguez Anion gap [Moles/Vol] 11.0 mmol/L Normal [facility] Comment on above: Performed By: #### U MICRO, ERUR #### [facility] [address] [place] [address] Dr. Otf Rodriguez AST [Catalytic activity/Vol] 19 U/L Normal 15-37 [facility] Comment on above: Performed By: #### U MICRO, ERUR #### [facility] [address] [place] [address] Dr. Otf Rodriguez Bilirubin [Mass/Vol] 0.4 mg/dL Normal 0.2-1.0 [facility] Comment on above: Performed By: #### U MICRO, ERUR #### [facility] [address] [address] [address] Otf Rodriguez Calcium [Mass/Vol] 9.2 mg/dL Normal 8.5-10.1 [facility] Comment on above: Performed By: #### U MICRO, ERUR #### [facility] [address] [address] [address] Otf Rodriguez Chloride [Moles/Vol] 99 mmol/L Normal 98-107 [facility] Comment on above: Performed By: #### U MICRO, ERUR #### [facility] [address] [address] [address] Otf Rodriguez CO2 [Moles/Vol] 29.7 mmol/L Normal 21.0-32.0 [facility] Comment on above: Performed By: #### U MICRO, ERUR #### [facility] [address] [place] [address] Dr. Otf Rodriguez Creatinine [Mass/Vol] 0.71 mg/dL Normal 0.55-1.02 [facility] Comment on above: Performed By: #### U MICRO, ERUR #### [facility] [address] [place] [address] Dr. Otf Rodriguez EGFR-AF WALLISIAN >60 Normal >=60 [facility] Comment on above: Performed By: #### U MICRO, ERUR #### [facility] [address] [address] [address] Otf Rodriguez EGFR-NON AF WALLISIAN >60 Normal >=60 [facility] Comment on above: Performed By: #### U MICRO, ERUR #### [facility] [address] [address] [address] Otf Rodriguez Globulin (S) [Mass/Vol] 3.6 g/dL Normal [facility] Comment on above: Performed By: #### U MICRO, ERUR #### [facility] [address] [place] [address] Dr. Otf Rodriguez Glucose [Mass/Vol] 129 mg/dL Critically high 74-106 [facility] Comment on above: Performed By: #### U MICRO, ERUR #### [facility] [address] [address] [address] Otf Rodriguez Potassium [Moles/Vol] 3.7 mmol/L Normal 3.5-5.1 [facility] Comment on above: Performed By: #### U MICRO, ERUR #### [facility] [address] [address] [address] Otf Rodriguez Protein [Mass/Vol] 7.6 g/dL Normal 6.4-8.2 [facility] Comment on above: Performed By: #### U MICRO, ERUR #### [facility] [address] [address] [address] Otf Rodriguez Sodium [Moles/Vol] 136 mmol/L Normal 136-145 [facility] Comment on above: Performed By: #### U MICRO, ERUR #### [facility] [address] [address] [address] Otf Rodriguez Urea nitrogen [Mass/Vol] 11.0 mg/dL Normal 7.0-18.0 [facility] Comment on above: Performed By: #### U MICRO, ERUR #### [facility] [address] [place] [address] Dr. Otf Rodriguez Urea nitrogen/Creatinine [Mass ratio] 15.5 mg/mg Normal [facility] Comment on above: Performed By: #### U MICRO, ERUR #### [facility] [address] [place] [address] Dr. Otf Rodriguez TROPONIN, HIGH SENSITIVITYon 01-11-2023 HSTROP 11.8 pg/mL Normal 4.0-51.3 [facility] Comment on above: Result Comment: CUT- OFF POINTS HAVE BEEN ESTABLISHED BASED ON THE FOURTH UNIVERSAL DEFINITIONS OF MYOCARDIAL INFARCTION. THE UPPER REFERENCE LIMIT (URL) OF TROPONIN, DEFINED THE 99TH PERCENTILE OF cTnI DISTRIBUTION IN A REFERENCE POPULATION, HAS BEEN CONFIRMED THE DECISION THRESHOLD FOR AR DIAGNOSIS. Performed By: #### U MICRO, ERUR #### [facility] [address] [place] [address] Dr. Otf Rodriguez URINE MICROSCOPIC ONLYon BACTERIA NONE SEEN Normal NONE SEEN [facility] Comment on above: Performed By: #### U MICRO, ERUR #### [facility] [address] [place] [address] Dr. Otf Rodriguez Bacteria identified Cx Nom (U) NOT INDICATED Normal [facility] Comment on above: Performed By: #### U MICRO, ERUR #### [facility] [address] [place] [address] Dr. Otf Rodriguez CAST NONE SEEN Normal NONE SEEN [facility] Comment on above: Performed By: #### U MICRO, ERUR #### [facility] [address] [place] [address] Dr. Otf Rodriguez Crystals LM Nom (Urine sed) NONE SEEN Normal NONE SEEN [facility] Comment on above: Performed By: #### U MICRO, ERUR #### [facility] [address] [place] [address] Dr. Otf Rodriguez Epithelial cells LM Ql (Urine sed) NONE SEEN Normal NONE SEEN /RARE [facility] Comment on above: Performed By: #### U MICRO, ERUR #### [facility] [address] [place] [address] Dr. Otf Rodriguez MUCOUS NONE SEEN Normal NONE SEEN [facility] Comment on above: Performed By: #### U MICRO, ERUR #### [facility] [address] [place] [address] Dr. Otf Rodriguez RBC 0-2 Normal 0-2 [facility] Comment on above: Performed By: #### U MICRO, ERUR #### [facility] [address] [place] [address] Dr. Otf Rodriguez WBC 0-2 Abnormal NONE SEEN [facility] Comment on above: Performed By: #### U MICRO, ERUR #### [facility] [address] [place] [address] Dr. Otf Rodriguez MRI CSPINE WO CONon 10-16-20 22 MRI CSPINE WO CON EXAMINATION: MRI CSP INE WO CON HISTORY: Neck pain COMPARISON: No [...] CRISTIANE SIMPSON Date: 2022-10-16 10:04 Normal [facility] XR CSPINE 2_3 VIEWSon 2021 XR CSPINE 2_3 VIEWS EXAMINATION: XR CSPI NE 2_3 VIEWS HISTORY: Pain COMPARISON: No relevant comparison available. FINDINGS: BONES: Stable fusion C4-C6. No mechanical failure. Mild degenerative changes DISC SPACES: Normal. No significant disc height narrowing, subluxation, or endplate abnormality. PARASPINOUS: Negative. No paraspinous abnormality is seen. OTHER: Negative. IMPRESSION: Stable fusion C4-C6 Electronically authenticated by: CRISTIANE SIMPSON Date: 2022-10-01 12:07 Normal [facility] CULTURE WOUNDon 09-15-2022 CULTURE WOUND Culture Observations : No growth of aerobes at 48 hours. Culture Observations: No growth of anaerobes at 72 hours. Normal [facility] Comment on above: Performed By: #### W OUNDCX #### [facility] [address] [place] [address] Dr. Otf Rodriguez GRAM STAINon 09-15-2022 COMMENTS NO ORGANISMS OBSERVED Normal [facility] Comment on above: Performed By: #### G STAIN #### [facility] [address] [place] [address] Dr. Otf Rodriguez DIPHTHEROIDS Normal [facility] Comment on above: Performed By: #### G STAIN #### [facility] [address] [place] [address] Dr. Otf Rodriguez EPITHELIALS Normal [facility] Comment on above: Performed By: #### G STAIN #### [facility] [address] [address] [address] Otf Rodriguez FUNGAL ELEMENTS Normal [facility] Comment on above: Performed By: #### G STAIN #### [facility] [address] [place] [address] Dr. Otf MOYA NEG BACILLI Normal [facility] Comment on above: Performed By: #### G STAIN #### [facility] [address] [place] [address] Dr. Otf MOYA NEG DIPPLOCOCCI Normal [facility] Comment on above: Performed By: #### G STAIN #### [facility] [address] [address] [address] Otf MOYA POS BACILLI Normal [facility] Comment on above: Performed By: #### G STAIN #### [facility] [address] [place] [address] Dr. Otf Rodriguez GRAM POSITIVE COCCI Normal [facility] Comment on above: Performed By: #### G STAIN #### [facility] [address] [place] [address] Dr. Otf Rodriguez GRAM STAIN SOURCE Lt 4th Toe Abscess Normal [facility] Comment on above: Performed By: #### G STAIN #### [facility] [address] [place] [address] Dr. Otf Rodriguez GS_DIPTH Normal [facility] Comment on above: Performed By: #### G STAIN #### [facility] [address] [place] [address] Dr. Otf Rodriguez WBC NONE SEEN Normal [facility] Comment on above: Performed By: #### G STAIN #### [facility] [address] [place] [address] Dr. Otf Rodriguez AMYLASEon 07-14-2021 AMYL <30 Critically low 31-110 [facility] Comment on above: Performed By: #### C DHIRAJ LAI LIPA #### [facility] [address] [place] [address] Jasper Bethea CARDIAC NATA 3-6on 1 CK [Catalytic activity/Vol] 194 U/L Critically high 30-135 [facility] Comment on above: Performed By: #### C VDTBH #### [facility] [address] [place] [address] Jasper Neema CK.MB [Mass/Vol] 0.97 ng/mL Normal <=2.37 [facility] Comment on above: Performed By: #### C VDTBH #### [facility] [address] [place] [address] Jasper Bethea HSTROP 16.0 pg/mL Normal 4.0-35.5 [facility] Comment on above: Result Comment: CUT- OFF POINTS HAVE BEEN ESTABLISHED BASED ON THE FOURTH UNIVERSAL DEFINITIONS OF MYOCARDIAL INFARCTION. THE UPPER REFERENCE LIMIT (URL) OF TROPONIN, DEFINED THE 99TH PERCENTILE OF cTnI DISTRIBUTION IN A REFERENCE POPULATION, HAS BEEN CONFIRMED THE DECISION THRESHOLD FOR AR DIAGNOSIS. Performed By: #### C VDTBH #### [facility] [address] [place] [address] Jasper Neema CBC AUTO DIFFon 07-14-2021 BASO # 0.0 103/ul Normal 0.0-0.1 [facility] Comment on above: Performed By: #### C VDTBH #### [facility] [address] [place], [place] [id number] Jasper Neema Basophils/100 WBC (Bld) 0.3 % Normal 0.2-2.0 [facility] Comment on above: Performed By: #### C VDTBH #### [facility] [address] [place] [address] Jasper Neema EO # 0.0 103/ul Normal 0.0-0.7 [facility] Comment on above: Performed By: #### C VDTBH #### [facility] Laboratory [address] [place], [place] [address] Jasper Neema Eosinophils/100 WBC (Bld) 0.0 % Critically low 0.9-7.0 [facility] Comment on above: Performed By: #### C VDTBH #### [facility] [address] [place], [place] [address] Jasper Neema Erythrocyte distribution width (RBC) [Ratio] 13.2 % Normal 11.0-15.0 [facility] Comment on above: Performed By: #### C VDTBH #### [facility] [address] [place], [place] [address] Jasper Neema Hematocrit (Bld) [Volume fraction] 42.6 % Normal 36.0-48.0 [facility] Comment on above: Performed By: #### C VDTBH #### [facility] [address] [place] [address] Jasper Neema Hemoglobin (Bld) [Mass/Vol] 13.7 g/dL Normal 12.0-16.0 [facility] Comment on above: Performed By: #### C VDTBH #### [facility] [address] [place] [address] Jasper Neema IG # 0.03 10e3/ul Normal 0.00-0.03 [facility] Comment on above: Performed By: #### C VDTBH #### [facility] [address] [place] [address] Jasper Neema IG % 0.3 % Normal 0.0-0.5 [facility] Comment on above: Performed By: #### C VDTBH #### [facility] [address] [place], [place] [address] Jasper Neema LYMPH # 1.1 103/ul Critically low 1.2-3.8 [facility] Comment on above: Performed By: #### C VDTBH #### [facility] [address] [place], [place] [address] Jasper Neema Lymphocytes/100 WBC (Bld) 10.0 % Critically low 20.5-60.0 [facility] Comment on above: Performed By: #### C VDTBH #### [facility] [address] [place], [place] [address] Jasper Bethea MANUAL DIFF REQ NO Normal [facility] Comment on above: Performed By: #### C VDTBH #### [facility] [address] [place], [place] [address] Jasper Bethea MCH (RBC) [Entitic mass] 27.6 pg Normal 26.7-34.0 [facility] Comment on above: Performed By: #### C VDTBH #### [facility] [address] [place], [place] [address] Jasper Bethea MCHC (RBC) [Mass/Vol] 32.2 g/dL Normal 29.9-35.2 [facility] Comment on above: Performed By: #### C VDTBH #### [facility] [address] [place] [address] Jasper Bethea MCV (RBC) [Entitic vol] 85.9 fL Normal 81.0-99.0 [facility] Comment on above: Performed By: #### C VDTBH #### [facility] [address] [place], [place] [address] Jasper Bethea MONO # 0.6 103/ul Normal 0.3-0.8 [facility] Comment on above: Performed By: #### C VDTBH #### [facility] [address] [place] [address] Jasper Fitzgeralden Monocytes/100 WBC (Bld) 5.4 % Normal 1.7-12.0 [facility] Comment on above: Performed By: #### C VDTBH #### [facility] [address] [place], [place] [address] Jasper Neema NEUT # 9.4 103/ul Critically high 1.4-6.5 [facility] Comment on above: Performed By: #### C VDTBH #### [facility] [address] [place], [place] [address] Jasper Neema Neutrophils/100 WBC (Bld) 84.0 % Critically high 43.0-75.0 [facility] Comment on above: Performed By: #### C VDTBH #### [facility] [address] [place], [place] [address] Jasper Bethea Platelet mean volume (Bld) [Entitic vol] 8.7 fL Critically low 9.5-13.5 [facility] Comment on above: Performed By: #### C VDTBH #### [facility] [address] [place] [address] Jasper Bethea PLT 256 103/ul Normal 150-450 [facility] Comment on above: Performed By: #### C VDTBH #### [facility] [address] [place], [place] [address] Jasper Bethea RBC 4.96 106/ul Normal 4.20-5.40 [facility] Comment on above: Performed By: #### C VDTBH #### [facility] [address] [place] [address] Jasper Bethea WBC 11.1 103/ul Critically high 4.0-11.0 [facility] Comment on above: Performed By: #### C VDTBH #### [facility] [address] [place], [place] [address] Jasper Bethea CULTURE URINEon 07-14-2021 CULTURE URINE Culture Observations : GREATER THAN TWO ORGANISMS PRESENT. PLEASE RESUBMIT CLEAN CATCH MID-STREAM URINE IF CLINICALLY INDICATED. Normal [facility] Comment on above: Performed By: #### C VDTBH #### [facility] [address] [place], [place] [address] Jasper Bethea LIPASEon 07-14-2021 Lipase [Catalytic activity/Vol] 120.0 U/L Normal 23.0-300.0 [facility] Comment on above: Performed By: #### C VDTBH #### [facility] [address] [place], [place] [address] Jasper Bethea PROF 14(COMP METB)on 021 Albumin [Mass/Vol] 3.0 g/dL Critically low 3.5-5.0 [facility] Comment on above: Performed By: #### C MP, DHIRAJ, LIPA #### [facility] [address] [address] Jasper Neema Albumin/Globulin [Mass ratio] 0.8 {ratio} Normal [facility] Comment on above: Performed By: #### C DHIRAJ LAI, LIPA #### [facility] [address] [address] Jasper Neema ALP [Catalytic activity/Vol] 98 U/L Normal 38-126 [facility] Comment on above: Performed By: #### C DHIRAJ LAI, LIPA #### [facility] [address] [address] Jasper Neema ALT [Catalytic activity/Vol] 18 U/L Normal 9-52 [facility] Comment on above: Performed By: #### C DHIRAJ LAI LIPA #### [facility] [address] [address] Jasper Neema Anion gap [Moles/Vol] 12.7 mmol/L Normal [facility] Comment on above: Performed By: #### C DHIRAJ LIA, LIPA #### [facility] [address] [address] Jasper Neema AST [Catalytic activity/Vol] 24 U/L Normal 14-36 [facility] Comment on above: Performed By: #### C DHIRAJ LAI, LIPA #### [facility] [address] [place] [address] Jasper Neema Bilirubin [Mass/Vol] 0.4 mg/dL Normal 0.2-1.3 [facility] Comment on above: Performed By: #### C DHIRAJ LAI, LIPA #### [facility] [address] [address] Jasper Neema Calcium [Mass/Vol] 8.5 mg/dL Normal 8.4-10.2 [facility] Comment on above: Performed By: #### C DHIRAJ LAI, LIPA #### [facility] [address] [address] Jasper Neema Chloride [Moles/Vol] 105 mmol/L Normal 98-107 [facility] Comment on above: Performed By: #### C DHIRAJ LAI LIPA #### [facility] [address] [address] Jasper Neema CO2 [Moles/Vol] 28.7 mmol/L Normal 22.0-30.0 [facility] Comment on above: Performed By: #### C MP, DHIRAJ, LIPA #### [facility] [address] [address] Jasper Neema Creatinine [Mass/Vol] 0.88 mg/dL Normal 0.52-1.04 [facility] Comment on above: Performed By: #### C MP, DHIRAJ, LIPA #### [facility] [address] [address] Jasper Neema EGFR-AF WALLISIAN >60 Normal >=60 [facility] Comment on above: Performed By: #### C MP, DHIRAJ, LIPA #### [facility] [address] [place] [address] Jasper Neema EGFR-NON AF WALLISIAN >60 Normal >=60 [facility] Comment on above: Performed By: #### C MP, DHIRAJ, LIPA #### [facility] [address] [place] [address] Jasper Neema Globulin (S) [Mass/Vol] 3.6 g/dL Normal [facility] Comment on above: Performed By: #### C MP, DHIRAJ, LIPA #### [facility] [address] [place] [address] Jasper Neema Glucose [Mass/Vol] 105 mg/dL Normal 74-106 [facility] Comment on above: Performed By: #### C MP, DHIRAJ, LIPA #### [facility] [address] [place] [address] Jasper Neema Potassium [Moles/Vol] 4.4 mmol/L Normal 3.4-5.0 [facility] Comment on above: Performed By: #### C MP, DHIRAJ, LIPA #### [facility] [address] [address] Jasper Neema Protein [Mass/Vol] 6.6 g/dL Normal 6.1-8.2 [facility] Comment on above: Performed By: #### C MP, DHIRAJ, LIPA #### [facility] [address] [place], [place] [address] Jasper Neema Sodium [Moles/Vol] 142 mmol/L Normal 137-145 [facility] Comment on above: Performed By: #### C MP, DHIRAJ, LIPA #### [facility] [address] [place] [address] Jasper Neema Urea nitrogen [Mass/Vol] 15.0 mg/dL Normal 7.0-17.0 [facility] Comment on above: Performed By: #### C MP, DHIRAJ, LIPA #### [facility] [address] [place] [address] Jasper Neema Urea nitrogen/Creatinine [Mass ratio] 17.0 mg/mg Normal [facility] Comment on above: Performed By: #### C MP, DHIRAJ, LIPA #### [facility] [address] [place] [address] Jasper Neema AMYLASEon 07-13-2021 AMYL <30 Critically low 31-110 [facility] Comment on above: Performed By: #### A MY, CMP, LIPA #### [facility] [address] [place], [place] [address] Jasper Neema CBC AUTO DIFFon 07-13-2021 BASO # 0.0 103/ul Normal 0.0-0.1 [facility] Comment on above: Performed By: #### C BC #### [facility] [address] [place], [place] [address] Jasper Neema Basophils/100 WBC (Bld) 0.3 % Normal 0.2-2.0 [facility] Comment on above: Performed By: #### C BC #### [facility] [address] [place], [place] [address] Jasper Neema EO # 0.2 103/ul Normal 0.0-0.7 [facility] Comment on above: Performed By: #### C BC #### [facility] [address] [place], [place] [address] Jasper Neema Eosinophils/100 WBC (Bld) 1.7 % Normal 0.9-7.0 [facility] Comment on above: Performed By: #### C BC #### [facility] [address] [place] [address] Jasper Bethea Erythrocyte distribution width (RBC) [Ratio] 12.8 % Normal 11.0-15.0 [facility] Comment on above: Performed By: #### C BC #### [facility] [address] [place] [address] Jasperjanet Bethea Hematocrit (Bld) [Volume fraction] 43.7 % Normal 36.0-48.0 [facility] Comment on above: Performed By: #### C BC #### [facility] [address] [place] [address] Jasper Neema Hemoglobin (Bld) [Mass/Vol] 14.3 g/dL Normal 12.0-16.0 [facility] Comment on above: Performed By: #### C BC #### [facility] [address] [place] [address] Jasperjanet Bethea IG # 0.04 10e3/ul Critically high 0.00-0.03 [facility] Comment on above: Performed By: #### C BC #### [facility] [address] [place] [address] Jasper Neema IG % 0.4 % Normal 0.0-0.5 [facility] Comment on above: Performed By: #### C BC #### [facility] [address] [place] [address] Jasper Neema LYMPH # 1.6 103/ul Normal 1.2-3.8 [facility] Comment on above: Performed By: #### C BC #### [facility] [address] [place] [address] Jasper Bethea Lymphocytes/100 WBC (Bld) 14.2 % Critically low 20.5-60.0 [facility] Comment on above: Performed By: #### C BC #### [facility] [address] [place] [address] Jasper Bethea MANUAL DIFF REQ NO Normal [facility] Comment on above: Performed By: #### C BC #### [facility] [address] [id number] Jasperjanet Bethea MCH (RBC) [Entitic mass] 27.6 pg Normal 26.7-34.0 [facility] Comment on above: Performed By: #### C BC #### [facility] [address] [id number] Jasper Bethea MCHC (RBC) [Mass/Vol] 32.7 g/dL Normal 29.9-35.2 [facility] Comment on above: Performed By: #### C BC #### [facility] [address] [id number] Jasperjanet Bethea MCV (RBC) [Entitic vol] 84.2 fL Normal 81.0-99.0 [facility] Comment on above: Performed By: #### C BC #### [facility] [address] [place] [address] Jasper Fitzgeralden MONO # 0.8 103/ul Normal 0.3-0.8 [facility] Comment on above: Performed By: #### C BC #### [facility] [address] [place], [place] [address] Jasper Bethea Monocytes/100 WBC (Bld) 7.1 % Normal 1.7-12.0 [facility] Comment on above: Performed By: #### C BC #### [facility] [address] [place], [place] [address] Jasper Bethea NEUT # 8.3 103/ul Critically high 1.4-6.5 [facility] Comment on above: Performed By: #### C BC #### [facility] [address] [place], [place] [address] Jasper Neema Neutrophils/100 WBC (Bld) 76.3 % Critically high 43.0-75.0 [facility] Comment on above: Performed By: #### C BC #### [facility] [address] [place], [place] [address] Jasper Neema Platelet mean volume (Bld) [Entitic vol] 8.5 fL Critically low 9.5-13.5 [facility] Comment on above: Performed By: #### C BC #### [facility] [address] [place] [address] Jasper Neema PLT 261 103/ul Normal 150-450 [facility] Comment on above: Performed By: #### C BC #### [facility] [address] [place] [address] Jasper Neema RBC 5.19 106/ul Normal 4.20-5.40 [facility] Comment on above: Performed By: #### C BC #### [facility] [address] [place], [place] [address] Jasper Neema WBC 10.9 103/ul Normal 4.0-11.0 [facility] Comment on above: Performed By: #### C BC #### [facility] [address] [place], [place] [address] Jasper Neema LIPASEon 07-13-2021 Lipase [Catalytic activity/Vol] 575.0 U/L Critically high 23.0-300.0 [facility] Comment on above: Performed By: #### A MY, CMP, LIPA #### [facility] [address] [place], [place] [address] Jasperjanet Fitzgeralden PROF 14(COMP METB)on 021 Albumin [Mass/Vol] 3.1 g/dL Critically low 3.5-5.0 [facility] Comment on above: Performed By: #### A MY, CMP, LIPA #### [facility] [address] [place] [address] Jasper Neema Albumin/Globulin [Mass ratio] 0.9 {ratio} Normal [facility] Comment on above: Performed By: #### A MY, CMP, LIPA #### [facility] [address] [place] [address] Jasper Neema ALP [Catalytic activity/Vol] 103 U/L Normal 38-126 [facility] Comment on above: Performed By: #### A MY, CMP, LIPA #### [facility] [address] [place] [address] Jasper Neema ALT [Catalytic activity/Vol] 22 U/L Normal 9-52 [facility] Comment on above: Performed By: #### A MY, CMP, LIPA #### [facility] [address] [id number] Jasper Neema Anion gap [Moles/Vol] 9.2 mmol/L Normal [facility] Comment on above: Performed By: #### A MY, CMP, LIPA #### [facility] [address] [address] Jasper Neema AST [Catalytic activity/Vol] 18 U/L Normal 14-36 [facility] Comment on above: Performed By: #### A MY, CMP, LIPA #### [facility] [address] [address] Jasper Neema Bilirubin [Mass/Vol] 0.5 mg/dL Normal 0.2-1.3 [facility] Comment on above: Performed By: #### A MY, CMP, LIPA #### [facility] [address] [place] [address] Jasper Neema Calcium [Mass/Vol] 8.4 mg/dL Normal 8.4-10.2 [facility] Comment on above: Performed By: #### A MY, CMP, LIPA #### [facility] [address] [address] Jasper Neema Chloride [Moles/Vol] 106 mmol/L Normal 98-107 [facility] Comment on above: Performed By: #### A MY, CMP, LIPA #### [facility] [address] [address] Jasper Neema CO2 [Moles/Vol] 31.9 mmol/L Critically high 22.0-30.0 [facility] Comment on above: Performed By: #### A MY, CMP, LIPA #### [facility] [address] [address] Jasper Neema Creatinine [Mass/Vol] 0.80 mg/dL Normal 0.52-1.04 [facility] Comment on above: Performed By: #### A MY, CMP, LIPA #### [facility] [address] [id number] Jasper Neema EGFR-AF WALLISIAN >60 Normal >=60 [facility] Comment on above: Performed By: #### A MY, CMP, LIPA #### [facility] [address] [id number] Jasper Neema EGFR-NON AF WALLISIAN >60 Normal >=60 [facility] Comment on above: Performed By: #### A MY, CMP, LIPA #### [facility] [address] [id number] Jasper Neema Globulin (S) [Mass/Vol] 3.4 g/dL Normal [facility] Comment on above: Performed By: #### A MY, CMP, LIPA #### [facility] [address] [place] [address] Jasper Neema Glucose [Mass/Vol] 113 mg/dL Critically high 74-106 [facility] Comment on above: Performed By: #### A MY, CMP, LIPA #### [facility] [address] [place] [address] Jasper Neema Potassium [Moles/Vol] 4.1 mmol/L Normal 3.4-5.0 [facility] Comment on above: Performed By: #### A MY, CMP, LIPA #### [facility] [address] [place] [address] Jasper Neema Protein [Mass/Vol] 6.5 g/dL Normal 6.1-8.2 [facility] Comment on above: Performed By: #### A MY, CMP, LIPA #### [facility] [address] [place] [address] Jasper Neema Sodium [Moles/Vol] 143 mmol/L Normal 137-145 [facility] Comment on above: Performed By: #### A MY, CMP, LIPA #### [facility] [address] [place] [address] Jasper Neema Urea nitrogen [Mass/Vol] 11.0 mg/dL Normal 7.0-17.0 [facility] Comment on above: Performed By: #### A MY, CMP, LIPA #### [facility] [address] [place] [address] Jasper Neema Urea nitrogen/Creatinine [Mass ratio] 13.8 mg/mg Normal [facility] Comment on above: Performed By: #### A MY, CMP, LIPA #### [facility] [address] [place], [place] [address] Jasper Bethea AMYLASEon 07-12-2021 Amylase [Catalytic activity/Vol] 46 U/L Normal 31-110 [facility] Comment on above: Performed By: #### A MY #### [facility] [address] [place] [address] Jasper Bethea ASYMPTOMATIC COVID-19 ANTIGE Non 07-12-2021 EUA Statement SEE BELOW Normal [facility] Comment on above: Result Comment: This test [...] sooner. Performed By: #### C VDTB #### [facility] [address] [place], [place] [address] Jasper Bethea SARS-CoV-2 (COVID-19) RNA UMESH+probe Ql (Unsp spec) Negative Normal NEGATIVE [facility] Comment on above: Result Comment: Nega tive results are presumptive. They do not preclude infection and should not be used as the sole basis for treatment decisions. Additional confirmatory testing by a molecular method should be considered. Performed By: #### C VDTB #### [facility] [address] [place] [address] Jasper Bethea CBC AUTO DIFFon 07-12-2021 BASO # 0.1 103/ul Normal 0.0-0.1 [facility] Comment on above: Performed By: #### C MP, LIPA #### [facility] [address] [place] [address] Jasper Neema Basophils/100 WBC (Bld) 0.5 % Normal 0.2-2.0 [facility] Comment on above: Performed By: #### C MP, LIPA #### [facility] [address] [place] [address] Jasper Neema EO # 0.2 103/ul Normal 0.0-0.7 [facility] Comment on above: Performed By: #### C MP, LIPA #### [facility] [address] [place] [address] Jasper Neema Eosinophils/100 WBC (Bld) 1.6 % Normal 0.9-7.0 [facility] Comment on above: Performed By: #### C MING, LIPA #### [facility] [address] [place] [address] Jasper Neema Erythrocyte distribution width (RBC) [Ratio] 12.7 % Normal 11.0-15.0 [facility] Comment on above: Performed By: #### C MING, LIPA #### [facility] [address] [place] [address] Jasper Neema Hematocrit (Bld) [Volume fraction] 45.7 % Normal 36.0-48.0 [facility] Comment on above: Performed By: #### C MP, LIPA #### [facility] [address] [place] [address] Jasper Neema Hemoglobin (Bld) [Mass/Vol] 15.4 g/dL Normal 12.0-16.0 [facility] Comment on above: Performed By: #### C MP, LIPA #### [facility] [address] [place] [address] Jasper Neema IG # 0.03 10e3/ul Normal 0.00-0.03 [facility] Comment on above: Performed By: #### C MP, LIPA #### [facility] [address] [place] [address] Jasper Neema IG % 0.3 % Normal 0.0-0.5 [facility] Comment on above: Performed By: #### C MP, LIPA #### [facility] [address] [phone] Jasper Neema LYMPH # 2.0 103/ul Normal 1.2-3.8 [facility] Comment on above: Performed By: #### C MP, LIPA #### [facility] [address] [id number] Jasper Neema Lymphocytes/100 WBC (Bld) 18.0 % Critically low 20.5-60.0 [facility] Comment on above: Performed By: #### C MP, LIPA #### [facility] [address] [id number] Jasper Neema MANUAL DIFF REQ NO Normal [facility] Comment on above: Performed By: #### C MP, LIPA #### [facility] [address] [place] [address] Jasperjanet Fitzgeralden MCH (RBC) [Entitic mass] 27.6 pg Normal 26.7-34.0 [facility] Comment on above: Performed By: #### C MP, LIPA #### [facility] [address] [id number] Jasperjanet Bethea MCHC (RBC) [Mass/Vol] 33.7 g/dL Normal 29.9-35.2 [facility] Comment on above: Performed By: #### C MP, LIPA #### [facility] [address] [place], [place] [address] Jasperjanet Fitzgeralden MCV (RBC) [Entitic vol] 82.0 fL Normal 81.0-99.0 [facility] Comment on above: Performed By: #### C MP, LIPA #### [facility] [address] [id number] Jasper Neema MONO # 0.7 103/ul Normal 0.3-0.8 [facility] Comment on above: Performed By: #### C MP, LIPA #### [facility] [address] [id number] Jasper Neema Monocytes/100 WBC (Bld) 6.4 % Normal 1.7-12.0 [facility] Comment on above: Performed By: #### C MP, LIPA #### [facility] [address] [place], [place] [address] Jasper Bethea NEUT # 8.0 103/ul Critically high 1.4-6.5 [facility] Comment on above: Performed By: #### C MP, LIPA #### [facility] [address] [place] [address] Jasper Bethea Neutrophils/100 WBC (Bld) 73.2 % Normal 43.0-75.0 [facility] Comment on above: Performed By: #### C MP, LIPA #### [facility] [address] [place], [place] [address] Jasper Bethea Platelet mean volume (Bld) [Entitic vol] 8.4 fL Critically low 9.5-13.5 [facility] Comment on above: Performed By: #### C MP, LIPA #### [facility] [address] [place] [address] Jasper Bethea PLT 287 103/ul Normal 150-450 [facility] Comment on above: Performed By: #### C MP, LIPA #### [facility] [address] [place], [place] [address] Jasper Bethea RBC 5.57 106/ul Critically high 4.20-5.40 [facility] Comment on above: Performed By: #### C MP, LIPA #### [facility] [address] [place] [address] Jasper Bethea WBC 10.9 103/ul Normal 4.0-11.0 [facility] Comment on above: Performed By: #### C MP, LIPA #### [facility] [address] [place], [place] [address] Jasper Bethea CT ABD/PELV W CONon 07-12-[address] ABD/PELV W CON EXAMINATION: CT ABD/ PELV W CON HISTORY: GENERALIZED ABDOMINAL PAIN ; [...] RAMYA IQBAL Date: 2021-07-12 13:00 Normal [facility] Covid-19 PCR (CVDTB)on 06-16 SARS-CoV-2 (COVID-19) RNA UMESH+probe Ql (Unsp spec) Not detected Normal NOT DETECTED [facility] Comment on above: Result Comment: This test is not yet approved or cleared by the [place] FDA. When there are no FDA-approved or cleared tests available, and other criteria are met, FDA can make tests available under an emergency access mechanism called an Emergency Use Authorization (EUA). The EUA for this test is supported by the Book Reviewer of Health and Human Service's (HHS's) declaration [...] consistent with SARS-CoV-2. Performed By: #### C VDTBH #### [facility] [address] [place] [address] Jasper Neema ER URINE PROFILEon 1 Bilirubin Ql (U) Negative Normal NEGATIVE [facility] Comment on above: Performed By: #### C VDTBH #### [facility] [address] [place] [address] Jasper Neema Clarity (U) CLEAR Normal CLEAR [facility] Comment on above: Performed By: #### C VDTB #### [facility] [address] [place] [address] Jasper Neema Color (U) LT. YELLOW Normal YELLOW [facility] Comment on above: Performed By: #### C VDTB #### [facility] [address] [place] [address] Jasper Neema ERUAHD A micrscopic examina tion will be performed if indicated. Normal [facility] Comment on above: Performed By: #### C VDTB #### [facility] [address] [place] [address] Jasper Neema Glucose Ql (U) Negative Normal NEGATIVE [facility] Comment on above: Performed By: #### C VDTB #### [facility] [address] [place] [address] Jasper Neema Hemoglobin Ql (U) TRACE-INTACT Abnormal NEGATIVE [facility] Comment on above: Performed By: #### C VDTBH #### [facility] [address] [place] [address] Jasper Neema Ketones Ql (U) Negative Normal NEGATIVE [facility] Comment on above: Performed By: #### C VDTBH #### [facility] [address] [place] [address] Jasper Neema LEUKOCYTES MODERATE Abnormal NEGATIVE [facility] Comment on above: Performed By: #### C VDTBH #### [facility] [address] [place] [address] Jasper Neema Nitrite Ql (U) Negative Normal NEGATIVE [facility] Comment on above: Performed By: #### C VDTBH #### [facility] [address] [place], [place] [id number] Jasper Btehea pH (U) 7.5 [pH] Normal 5-9 [facility] Comment on above: Performed By: #### C VDTBH #### [facility] [address] [place], [place] [id number] Jasper Bethea SPEC GRAVITY 1.010 Normal 1.005-<=1.0 25 [facility] Comment on above: Performed By: #### C VDTBH #### [facility] [address] [place], [place] [id number] Jasper Bethea UA PROTEIN Negative Normal NEGATIVE/ TRACE [facility] Comment on above: Performed By: #### C VDTBH #### [facility] [address] [place], [place] [id number] Jasper Bethea UR MICRO IND INDICATED Normal [facility] Comment on above: Performed By: #### C VDTBH #### [facility] [address] [place], [place] [address] Jasper Bethea Urobilinogen Qn (U) 0.2 {Tian'U}/dL Normal 0.2 - 1. 0 [facility] Comment on above: Performed By: #### C VDTBH #### [facility] [address] [place], [place] [address] Jasper Bethea LACTATE/LACTIC ACIDon 2020 Lactate [Moles/Vol] mmol/L Critically low 0.7-2.0 [facility] Comment on above: Performed By: #### C VDTBH #### [facility] [address] [place] [address] Jasper Bethea LIPASEon 07-12-2021 Lipase [Catalytic activity/Vol] 1780.0 U/L Critically high 23.0-300.0 [facility] Comment on above: Result Comment: test repeated critical value verified Performed By: #### C MP, LIPA #### [facility] [address] [place] [address] Jasper Bethea PROF 14(COMP METB)on 021 Albumin [Mass/Vol] 3.5 g/dL Normal 3.5-5.0 [facility] Comment on above: Performed By: #### C MP, LIPA #### [facility] [address] [id number] Jasper Neema Albumin/Globulin [Mass ratio] 0.9 {ratio} Normal [facility] Comment on above: Performed By: #### C MP, LIPA #### [facility] [address] [id number] Jasper Neema ALP [Catalytic activity/Vol] 120 U/L Normal 38-126 [facility] Comment on above: Performed By: #### C MP, LIPA #### [facility] [address] [id number] Jasper Neema ALT [Catalytic activity/Vol] 20 U/L Normal 9-52 [facility] Comment on above: Performed By: #### C MP, LIPA #### [facility] [address] [id number] Jasper Neema Anion gap [Moles/Vol] 10.3 mmol/L Normal [facility] Comment on above: Performed By: #### C MP, LIPA #### [facility] [address] [id number] Jasper Neema AST [Catalytic activity/Vol] 19 U/L Normal 14-36 [facility] Comment on above: Performed By: #### C MP, LIPA #### [facility] [address] [id number] Jasper Enema Bilirubin [Mass/Vol] 0.4 mg/dL Normal 0.2-1.3 [facility] Comment on above: Performed By: #### C MP, LIPA #### [facility] [address] [id number] Jasper Neema Calcium [Mass/Vol] 9.0 mg/dL Normal 8.4-10.2 [facility] Comment on above: Performed By: #### C MP, LIPA #### [facility] [address] [id number] Jasper Neema Chloride [Moles/Vol] 101 mmol/L Normal 98-107 [facility] Comment on above: Performed By: #### C MP, LIPA #### [facility] [address] [id number] Jasper Neema CO2 [Moles/Vol] 32.7 mmol/L Critically high 22.0-30.0 [facility] Comment on above: Performed By: #### C MP, LIPA #### [facility] [address] [id number] Jasper Neema Creatinine [Mass/Vol] 0.82 mg/dL Normal 0.52-1.04 [facility] Comment on above: Performed By: #### C MP, LIPA #### [facility] [address] [address] Jasper Neema EGFR-AF WALLISIAN >60 Normal >=60 [facility] Comment on above: Performed By: #### C MP, LIPA #### [facility] [address] [place] [address] Jasper Neema EGFR-NON AF WALLISIAN >60 Normal >=60 [facility] Comment on above: Performed By: #### C MP, LIPA #### [facility] [address] [place] [address] Jasper Neema Globulin (S) [Mass/Vol] 3.9 g/dL Normal [facility] Comment on above: Performed By: #### C MP, LIPA #### [facility] [address] [place] [address] Jasper Neema Glucose [Mass/Vol] 140 mg/dL Critically high 74-106 [facility] Comment on above: Performed By: #### C MP, LIPA #### [facility] [address] [place] [address] Jasper Neema Potassium [Moles/Vol] 4.0 mmol/L Normal 3.4-5.0 [facility] Comment on above: Performed By: #### C MP, LIPA #### [facility] [address] [address] Jasper Neema Protein [Mass/Vol] 7.4 g/dL Normal 6.1-8.2 [facility] Comment on above: Performed By: #### C MING, LIPA #### [facility] [address] [id number] Jasper Neema Sodium [Moles/Vol] 140 mmol/L Normal 137-145 [facility] Comment on above: Performed By: #### C MING, LIPA #### [facility] [address] [place], [place] [address] Jasper Neema Urea nitrogen [Mass/Vol] 14.0 mg/dL Normal 7.0-17.0 [facility] Comment on above: Performed By: #### C MING, LIPA #### [facility] [address] [id number] Jasper Neema Urea nitrogen/Creatinine [Mass ratio] 17.1 mg/mg Normal [facility] Comment on above: Performed By: #### C MING, LIPA #### [facility] [address] [place] [address] Jasper Neema TROPONIN, HIGH SENSITIVITYon 07-12-2021 HSTROP 7.5 pg/mL Normal 4.0-35.5 [facility] Comment on above: Result Comment: CUT- OFF POINTS HAVE BEEN ESTABLISHED BASED ON THE FOURTH UNIVERSAL DEFINITIONS OF MYOCARDIAL INFARCTION. THE UPPER REFERENCE LIMIT (URL) OF TROPONIN, DEFINED THE 99TH PERCENTILE OF cTnI DISTRIBUTION IN A REFERENCE POPULATION, HAS BEEN CONFIRMED THE DECISION THRESHOLD FOR AR DIAGNOSIS. Performed By: #### C VDTB #### [facility] [address] [place] [address] Jasper Neema URINE MICROSCOPIC ONLYon BACTERIA MODERATE Abnormal NONE SEEN [facility] Comment on above: Performed By: #### C VDTBH #### [facility] [address] [place], [place] [address] Jasper Neema Bacteria identified Cx Nom (U) INDICATED Normal [facility] Comment on above: Performed By: #### C VDTBH #### [facility] [address] [place] [address] Jasper Neema CAST NONE SEEN Normal NONE SEEN [facility] Comment on above: Performed By: #### C VDTBH #### [facility] [address] [place], [place] [address] Jasper Neema Crystals LM Nom (Urine sed) NONE SEEN Normal NONE SEEN [facility] Comment on above: Performed By: #### C VDTBH #### [facility] [address] [id number] Jasper Neema Epithelial cells LM Ql (Urine sed) MANY Abnormal NONE SEEN /RARE [facility] Comment on above: Performed By: #### C VDTBH #### [facility] [address] [place], [place] [address] Jasper Neema MUCOUS NONE SEEN Normal NONE SEEN [facility] Comment on above: Performed By: #### C VDTBH #### [facility] [address] [place], [place] [address] Jasper Neema RBC 2-5 Abnormal 0-2 [facility] Comment on above: Performed By: #### C VDTBH #### [facility] [address] [place], [place] [address] Jasper Neema WBC 50-75 Abnormal NONE SEEN [facility] Comment on above: Performed By: #### C VDTBH #### [facility] [address] [place], [place] [address] Jasperjanet Bethae Vital Signs Date Time Vital Sign Value Performing Clinician Facility 06-05-2025 13:48-0400 Diastolic blood pressure 80 mm[Hg] Paras Gallardo MD Work Phone: [facility] 06-05-2025 13:48-0400 Systolic blood pressure 152 mm[Hg] Paras Gallardo MD Work Phone: [facility] 06-05-2025 13:28-0400 Body height 154.94 cm Paras Gallardo MD Work Phone: [facility] 06-05-2025 13:28-0400 Body mass index (BMI) [Ratio] 35 kg/m2 Paras Gallardo MD Work Phone: [facility] 06-05-2025 13:28-0400 Body weight 84.08 kg Paras Gallardo MD Work Phone: [facility] 06-05-2025 13:28-0400 Heart rate 93 /min Paras Gallardo MD Work Phone: [facility] 06-05-2025 13:28-0400 Respiratory rate 14 /min Paras Gallardo MD Work Phone: [facility] 06-05-2025 13:28-0400 SaO2% (BldA) [Mass fraction] 97 % Paras Gallardo MD Work Phone: [facility] 04-12-2025 12:18-0400 Body height 154.9 cm Rosita Nienberg PA Work Phone: [facility] 04-12-2025 12:18-0400 Body mass index (BMI) [Ratio] 34.77 kg/m2 Rosita Nienberg PA Work Phone: [facility] 04-12-2025 12:18-0400 Body weight 83.46 kg Rosita Nienberg PA Work Phone: [facility] 04-12-2025 12:18-0400 Diastolic blood pressure 96 mm[Hg] Rosita Nienberg PA Work Phone: [facility] 04-12-2025 12:18-0400 Heart rate 93 /min Rosita Nienberg PA Work Phone: [facility] 04-12-2025 12:18-0400 Respiratory rate 18 /min Rosita Nienberg PA Work Phone: [facility] 04-12-2025 12:18-0400 SaO2% (BldA) [Mass fraction] 95 % Rosita Nienberg PA Work Phone: [facility] 04-12-2025 12:18-0400 Systolic blood pressure 118 mm[Hg] Rosita Nienberg PA Work Phone: [facility] 03-29-2025 12:50-0400 Diastolic blood pressure 68 mm[Hg] Rosita Nienberg PA Work Phone: [facility] 03-29-2025 12:50-0400 Heart rate 101 /min Rosita Nienberg PA Work Phone: [facility] 03-29-2025 12:50-0400 Respiratory rate 18 /min Rosita CLEMONS Work Phone: [facility] 03-29-2025 12:50-0400 SaO2% (BldA) [Mass fraction] 94 % Rosita CLEMONS Work Phone: [facility] 03-29-2025 12:50-0400 Systolic blood pressure 149 mm[Hg] Rosita CLEMONS Work Phone: [facility] 03-16-2025 18:10-0400 Body height 154.94 cm Paras Gallardo MD Work Phone: [facility] 03-16-2025 18:10-0400 Body mass index (BMI) [Ratio] 34.4 kg/m2 Paras Gallardo MD Work Phone: [facility] 03-16-2025 18:10-0400 Body temperature 97.5 [degF] Paras Gallardo MD Work Phone: [facility] 03-16-2025 18:10-0400 Body weight 82.61 kg Paras Gallardo MD Work Phone: [facility] 03-16-2025 18:10-0400 Diastolic blood pressure 97 mm[Hg] Paras Gallardo MD Work Phone: [facility] 03-16-2025 18:10-0400 Heart rate 97 /min Paras Gallardo MD Work Phone: [facility] 03-16-2025 18:10-0400 Respiratory rate 18 /min Paras Gallardo MD Work Phone: [facility] 03-16-2025 18:10-0400 SaO2% (BldA) [Mass fraction] 94 % Paras Gallardo MD Work Phone: [facility] 03-16-2025 18:10-0400 Systolic blood pressure 186 mm[Hg] Paras Gallardo MD Work Phone: [facility] 02-20-2025 10:47-0400 Body height 154.9 cm Rosita Borges PA Work Phone: [facility] 02-20-2025 10:47-0400 Body mass index (BMI) [Ratio] 34.01 kg/m2 Rosita Borges PA Work Phone: [facility] 02-20-2025 10:47-0400 Body weight 81.65 kg Rosita Borges PA Work Phone: [facility] 02-20-2025 10:47-0400 Diastolic blood pressure 82 mm[Hg] Rosita Royenberg PA Work Phone: [facility] 02-20-2025 10:47-0400 Heart rate 100 /min Rosita Borges PA Work Phone: [facility] 02-20-2025 10:47-0400 Respiratory rate 20 /min Rosita Borges PA Work Phone: [facility] 02-20-2025 10:47-0400 SaO2% (BldA) [Mass fraction] 97 % Rosita Borges PA Work Phone: [facility] 02-20-2025 10:47-0400 Systolic blood pressure 150 mm[Hg] Rosita Borges PA Work Phone: [facility] 02-08-2025 14:18-0400 Body height 154.94 cm Paras Gallardo MD Work Phone: [facility] 02-08-2025 14:18-0400 Body mass index (BMI) [Ratio] 33.7 kg/m2 Paras Gallardo MD Work Phone: [facility] 02-08-2025 14:18-0400 Body weight 80.96 kg Paras Gallardo MD Work Phone: [facility] 02-08-2025 14:18-0400 Diastolic blood pressure 74 mm[Hg] Paras Gallardo MD Work Phone: [facility] 02-08-2025 14:18-0400 Heart rate 81 /min Paras Gallardo MD Work Phone: [facility] 02-08-2025 14:18-0400 SaO2% (BldA) [Mass fraction] 92 % Paras Gallardo MD Work Phone: [facility] 02-08-2025 14:18-0400 Systolic blood pressure 134 mm[Hg] Paras Gallardo MD Work Phone: [facility] 02-05-2025 11:53-0400 Body temperature 97.8 [degF] Paras Gallardo MD Work Phone: [facility] 02-05-2025 11:53-0400 Diastolic blood pressure 75 mm[Hg] Paras Gallardo MD Work Phone: [facility] 02-05-2025 11:53-0400 Heart rate 80 /min Paras Gallardo MD Work Phone: [facility] 02-05-2025 11:53-0400 Inhaled oxygen flow rate 1 L/min Paras Gallardo MD Work Phone: [facility] 02-05-2025 11:53-0400 Respiratory rate 17 /min Paras Gallardo MD Work Phone: [facility] 02-05-2025 11:53-0400 SaO2% (BldA) [Mass fraction] 93 % Paras Gallardo MD Work Phone: [facility] 02-05-2025 11:53-0400 Systolic blood pressure 147 mm[Hg] Paras Gallardo MD Work Phone: [facility] 02-05-2025 06:00-0400 Body weight 85.8 kg Paras Gallardo MD Work Phone: [facility] 02-03-2025 16:00-0400 Inhaled oxygen concentration 90 % Paras Gallardo MD Work Phone: [facility] 02-02-2025 12:54-0400 Body height 154.94 cm Paras Gallardo MD Work Phone: [facility] 02-01-2025 15:00-0400 Diastolic blood pressure 72 mm[Hg] Paras Gallardo MD Work Phone: [facility] 02-01-2025 15:00-0400 Heart rate 95 /min Paras Gallardo MD Work Phone: [facility] 02-01-2025 15:00-0400 Inhaled oxygen flow rate 3 L/min Paras Gallardo MD Work Phone: [facility] 02-01-2025 15:00-0400 Respiratory rate 24 /min Paras Gallardo MD Work Phone: [facility] 02-01-2025 15:00-0400 SaO2% (BldA) [Mass fraction] 91 % Paras Gallardo MD Work Phone: [facility] 02-01-2025 15:00-0400 Systolic blood pressure 172 mm[Hg] Paras Gallardo MD Work Phone: [facility] 02-01-2025 11:04-0400 Body temperature 98.5 [degF] Paras Gallardo MD Work Phone: [facility] 02-01-2025 11:01-0400 Body height 154.94 cm Paras Gallardo MD Work Phone: [facility] 02-01-2025 11:01-0400 Body weight 79.83 kg Paras Gallardo MD Work Phone: [facility] 01-20-2025 13:17-0500 Body height 152.4 cm [facility] 01-20-2025 13:17-0500 Body temperature 98.1 [degF] [facility] 01-20-2025 13:17-0500 Diastolic blood pressure 70 mm[Hg] [facility] 01-20-2025 13:17-0500 Heart rate 75 /min [facility] 01-20-2025 13:17-0500 Respiratory rate 18 /min [facility] 01-20-2025 13:17-0500 SaO2% (BldA) [Mass fraction] 91 % [facility] 01-20-2025 13:17-0500 Systolic blood pressure 190 mm[Hg] [facility] 08-08-2024 13:55-0400 Body height 152.4 cm [facility] 08-08-2024 13:55-0400 Body mass index (BMI) [Ratio] 34.9 kg/m2 [facility] 08-08-2024 13:55-0400 Body weight 81.19 kg [facility] 08-08-2024 13:55-0400 Diastolic blood pressure 83 mm[Hg] [facility] 08-08-2024 13:55-0400 Heart rate 84 /min [facility] 08-08-2024 13:55-0400 Systolic blood pressure 154 mm[Hg] [facility] 03-23-2024 08:29-0400 Body height 154.9 cm Rosita Borges PA Work Phone: [facility] 03-23-2024 08:29-0400 Body mass index (BMI) [Ratio] 33.82 kg/m2 Rosita Borges PA Work Phone: [facility] 03-23-2024 08:29-0400 Body weight 81.19 kg Rosita Borges PA Work Phone: [facility] 03-23-2024 08:29-0400 Diastolic blood pressure 92 mm[Hg] Rosita Borges PA Work Phone: [facility] Comment on above: manual 03-23-2024 08:29-0400 Heart rate 93 /min Rosita Borges PA Work Phone: [facility] 03-23-2024 08:29-0400 Respiratory rate 18 /min Rosita Borges PA Work Phone: [facility] 03-23-2024 08:29-0400 SaO2% (BldA) [Mass fraction] 100 % Rosita Borges PA Work Phone: [facility] 03-23-2024 08:29-0400 Systolic blood pressure 172 mm[Hg] Rosita Royenberg PA Work Phone: [facility] Comment on above: manual 02-17-2024 10:51-0400 Body height 154.9 cm Rosita Royenberg PA [facility]: [facility] 02-17-2024 10:51-0400 Body mass index (BMI) [Ratio] 34.2 kg/m2 Rosita Nienberg PA Work Phone: [facility] 02-17-2024 10:51-0400 Body weight 82.1 kg Rosita Nienberg PA Work Phone: [facility] 02-17-2024 10:51-0400 Diastolic blood pressure 82 mm[Hg] Rosita Royenberg PA Work Phone: [facility] 02-17-2024 10:51-0400 Heart rate 93 /min Rosita Nienberg PA Work Phone: [facility] 02-17-2024 10:51-0400 Respiratory rate 16 /min Rosita Nienberg PA Work Phone: [facility] 02-17-2024 10:51-0400 SaO2% (BldA) [Mass fraction] 93 % Rosita Nienberg PA Work Phone: [facility] 02-17-2024 10:51-0400 Systolic blood pressure 180 mm[Hg] Rosita Manuelaenberg PA Work Phone: [facility] 08-16-2023 10:45-0400 Body height 152.4 cm Paras Gallardo Other [facility] Other 08-16-2023 10:45-0400 Body mass index (BMI) [Ratio] 34.76 kg/m2 Paras Gallardo Other [facility] Other 08-16-2023 10:45-0400 Body weight 80.74 kg Paras Gallardo Other [facility] Other 08-16-2023 10:45-0400 Diastolic blood pressure 82 mm[Hg] Paras Gallardo Other [facility] Other 08-16-2023 10:45-0400 Systolic blood pressure 152 mm[Hg] Paras Gallardo Other [facility] Other 04-27-2023 10:45-0400 Body height 152.4 cm Paras Gallardo Other [facility] Other 04-27-2023 10:45-0400 Body mass index (BMI) [Ratio] 34.76 kg/m2 Paras Gallardo Other [facility] [facility] Other 04-27-2023 10:45-0400 Body weight 80.74 kg Paras Gallardo Other [facility] Other 04-27-2023 10:45-0400 Diastolic blood pressure 80 mm[Hg] Paras Gallardo Other [facility] Other 04-27-2023 10:45-0400 Systolic blood pressure 154 mm[Hg] Paras Gallardo Other [facility] [facility] Other 03-28-2023 11:17-0400 Heart rate 98 /min MD Paras Gallardo Work Phone: [facility] 03-28-2023 11:17-0400 Respiratory rate 20 /min MD Paras Gallardo Work Phone: [facility] 03-28-2023 11:17-0400 SaO2% (BldA) [Mass fraction] 97 % MD Paras Gallardo Work Phone: [facility] 03-28-2023 11:10-0400 Diastolic blood pressure 60 mm[Hg] MD Paras Gallardo Work Phone: [facility] 03-28-2023 11:10-0400 Systolic blood pressure 159 mm[Hg] MD Paras Gallardo Work Phone: [facility] 03-28-2023 09:56-0400 Body height 154.94 cm MD Paras Gallardo Work Phone: [facility] 03-28-2023 09:56-0400 Body temperature 97 [degF] MD Paras Gallardo Work Phone: [facility] 03-28-2023 09:56-0400 Body weight 81.6 kg MD Paras Gallardo Work Phone: [facility] 10-26-2022 15:00-0500 Body height 154.94 cm Amanda Blades Other [facility] [facility] Other 10-26-2022 15:00-0500 Body mass index (BMI) [Ratio] 33.44 kg/m2 Amanda Blades Other [facility] [facility] Other 10-26-2022 15:00-0500 Body weight 80.29 kg Amanda Blades Other [facility] [facility] Other 10-10-2022 10:17-0500 Body height 154.94 cm MD Lindy Rodriguez Work Phone: [facility] 10-10-2022 10:17-0500 Body weight 79.7 kg MD Lindy Rodriguez Work Phone: [facility] 10-10-2022 10:13-0500 Body temperature 98.5 [degF] MD Lindy Rodriguez Work Phone: [facility] 10-10-2022 10:13-0500 Diastolic blood pressure 98 mm[Hg] MD Lindy Rodriguez Work Phone: [facility] 10-10-2022 10:13-0500 Heart rate 73 /min MD Lindy Rodriguez Work Phone: [facility] 10-10-2022 10:13-0500 Respiratory rate 20 /min MD Lindy Rodriguez Work Phone: [facility] 10-10-2022 10:13-0500 SaO2% (BldA) [Mass fraction] 93 % MD Lindy Rodriguez Work Phone: [facility] 10-10-2022 10:13-0500 Systolic blood pressure 152 mm[Hg] MD Lindy Rodriguez Work Phone: [facility] Encounters Encounter Date Encounter Type Care Provider Facility Start: 06-05-2025 End: 06-05-2025 ambulatory Paras Gallardo MD Work Phone: [facility] Work Phone: Start: 06-05-2025 End: 06-05-2025 Patient encounter procedure Paras Gallardo MD [facility] Work Phone: Start: 05-01-2025 End: 05-10-2025 Telephone encounter Leana Rubin RN [facility] Start: 04-12-2025 End: 04-12-2025 Office outpatient visit 25 minutes Rosita Borges PA Work Phone: [facility] Comment on above: Cervical spondylosis without myelopathy (Primary Dx) Start: 04-12-2025 End: 04-12-2025 ambulatory [facility] Start: 03-29-2025 End: 03-29-2025 Office outpatient visit 15 minutes Rosita Borges PA Work Phone: [facility] Comment on above: Cervical spondylosis without myelopathy (Primary Dx) Start: 03-29-2025 End: 03-29-2025 ambulatory [facility] Start: 03-16-2025 End: 03-16-2025 ambulatory Paras Gallardo MD Work Phone: [facility] Work Phone: Start: 03-16-2025 End: 03-16-2025 Patient encounter procedure Paras Gallardo MD Work Phone: [facility] Physician [facility] Work Phone: Start: 03-09-2025 End: 03-09-2025 ambulatory KAMAR Carrion K[facility] Start: 02-20-2025 End: 02-20-2025 Office outpatient visit 25 minutes Rosita CLEMONS Work Phone: [facility] Comment on above: Cervical spondylosis without myelopathy (Primary Dx) Start: 02-20-2025 End: 02-20-2025 ambulatory ROSITA BORGES [facility] Start: 02-08-2025 End: 02-08-2025 ambulatory Paras Gallardo MD Work Phone: [facility] Work Phone: Start: 02-08-2025 End: 02-08-2025 Patient encounter procedure Paras Gallardo MD Work Phone: [facility] Physician [facility] Work Phone: Start: 02-05-2025 Non-patient / Non-visit Paras Gallardo MD Work Phone: [facility] Work Phone: Start: 02-01-2025 End: 02-05-2025 Evaluation and management of inpatient Paras Gallardo MD Work Phone: [facility] Work Phone: Start: 01-25-2025 End: 01-25-2025 ambulatory Paras Gallardo MD Work Phone: [facility] Work Phone: Start: 01-25-2025 End: 01-25-2025 Patient encounter procedure Paras Gallardo MD Work Phone: [facility] Physician [facility] Work Phone: Start: 01-22-2025 Non-patient / Non-visit Paras Gallardo MD Work Phone: [facility] Work Phone: Start: 01-20-2025 End: 01-20-2025 ambulatory Paras Gallardo MD Work Phone: [facility] Work Phone: Start: 01-20-2025 End: 01-20-2025 Departed Referred Paras Gallardo MD Work Phone: [facility] Start: 01-20-2025 End: 01-20-2025 ambulatory [facility] Work Phone: Start: 01-20-2025 End: 01-20-2025 Patient encounter procedure [facility] Physician [facility] Work Phone: Start: 01-19-2025 Non-patient / Non-visit [facility] Physician [facility] Work Phone: Start: 12-07-2024 End: 12-07-2024 ambulatory [facility] Work Phone: Start: 12-07-2024 End: 12-07-2024 Patient encounter procedure [facility] Work Phone: Start: 08-17-2024 End: 08-17-2024 ambulatory [facility] Work Phone: Start: 08-17-2024 End: 08-17-2024 Patient encounter procedure [facility] Physician [facility] Work Phone: Start: 08-09-2024 Non-patient / Non-visit [facility] Physician [facility] Work Phone: Start: 08-08-2024 End: 08-08-2024 ambulatory [facility] Work Phone: Start: 08-08-2024 End: 08-08-2024 Patient encounter procedure [facility] Work Phone: Start: 03-23-2024 End: 03-23-2024 Office outpatient visit 15 minutes Rosita CLEMONS Work Phone: [facility] Comment on above: Cervical spondylosis without myelopathy (Primary Dx) Start: 02-17-2024 End: 02-17-2024 Office outpatient visit 15 minutes Rosita CLEMONS Work Phone: [facility] Comment on above: Cervical spondylosis without myelopathy (Primary Dx) Start: 09-08-2023 End: 09-08-2023 ambulatory Thomas Calles Other [employer] Other Start: 09-08-2023 Telephone encounter Thomas RAMIREZ G Crisis Intervention Specialist Start: 08-30-2023 End: 08-30-2023 ambulatory Paras Gallardo Other [employer] Other Start: 08-30-2023 Telephone encounter Paras Gallardo [facility] Start: 08-23-2023 End: 08-23-2023 ambulatory Paras Gallardo Other [employer] Other Start: 08-23-2023 Telephone encounter Paras Gallardo [facility] Start: 08-17-2023 End: 08-17-2023 ambulatory Paras Gallardo Other [employer] Other Start: 08-17-2023 Telephone encounter Paras Gallardo [facility] Start: 08-16-2023 End: 08-16-2023 ambulatory Paras Gallardo Other [employer] Other Start: 08-16-2023 Office outpatient vi sit 25 minutes Paras Gallardo [facility] Start: 05-14-2023 End: 05-14-2023 ambulatory Paras Gallardo Other [employer] Other Start: 05-14-2023 Telephone encounter Paras Gallardo [facility] Start: 04-27-2023 End: 04-27-2023 ambulatory Paras Gallardo Other [employer] Other Start: 04-27-2023 Office outpatient vi sit 15 minutes Paras Gallardo [facility] Start: 03-28-2023 End: 03-28-2023 Emergency department patient visit MD Paras Gallardo Work Phone: [facility] Work Phone: Start: 01-11-2023 End: 01-11-2023 ambulatory KACI CARDENAS . Facility:[facility]1 Start: 10-26-2022 End: 10-26-2022 ambulatory Amanda Blades Other [facility] [employer] Other Start: 10-26-2022 Office outpatient ne w 45 minutes Amanda Blades [facility] Start: 10-16-2022 End: 10-17-[address] PARAS GALLARDO Facility:[facility]1 Start: 10-10-2022 End: 10-10-2022 Emergency department patient visit MD Lindy Rodriguez Work Phone: [facility] Start: 10-01-2022 End: 10-01-[address] CRISTIANE SIMPSON Facility:[facility]1 Start: 09-15-2022 End: 09-15-[address] PARAS GALLARDO Facility:[facility]1 Start: 09-15-[address] PARAS GALLARDO Facil ity:H1 Start: 09-09-2022 End: 09-10-[address] PARAS GALLARDO Facility:[facility]1 Start: 05-08-2022 End: 05-09-[address] PARAS GALLARDO Facility:[facility]1 Start: 04-09-[address] PARAS GALLARDO Facil ity:H1 Start: 07-12-2021 End: 07-14-[address] MAUREEN MORTENSEN Facility:[facility]1 Procedures Date Procedure Procedure Detail Performing Clinician Start: 03-16-2025 Plain X-ray of left wrist Paras Gallardo MD Work Phone: Start: 02-01-2025 Plain radiography of pelvis Paras Gallardo MD Work Phone: Start: 02-01-2025 Plain X-ray of right femur Paras Gallardo MD Work Phone: Start: 02-01-2025 Respiratory Panel (PCR) Paras Gallardo MD Work Phone: Start: 02-01-2025 Urine culture Paras villar MD Work Phone: Start: 02-01-2025 X-ray of right knee, four views Paras Gallardo MD Work Phone: Start: 02-01-2025 Plain chest X-ray Paola Gallardo MD Work Phone: Start: 01-20-2025 Urine culture Paras villar MD Work Phone: Start: 03-28-2023 Respiratory Panel (PCR) MD Paras Gallardo Work Phone: Start: 03-28-2023 Plain chest X-ray MD Tigist Gallardo Work Phone: Start: 10-10-2022 CT cervical spine wi thout contrast MD Lindy Rodriguez Work Phone: Start: 10-13-2017 Screening mammography Antony Gallardo Other Viral screening Paras Gallardo Other Plan of Treatment Date Care Activity Detail Author Start: 04-12-2026 Tobacco Screening Tobacco Screening [facility] Start: 03-29-2026 Tobacco Screening Tobacco Screening [facility] Start: 02-20-2026 Tobacco Screening Tobacco Screening [facility] Start: 07-16-2025 Influenza vaccination Influenza Vacc ine [facility] Start: 06-26-2025 End: 06-26-2025 Patient encounter procedure 06/26/2025 12:30 PM EDT Office Visit [facility] [address] [place] [address] Rosita Borges, PA [address] [place] [address] [facility] Start: 05-25-2025 End: 05-25-2025 Admission to same day surgery center 05/25/2025 9:30 AM EDT - 05/25/2025 9:42 AM EDT Surgery [facility] [address] [place] [id number] Kamar Koroma MD [address] [place] [address] RADIOFREQUENCY ABLATION SPINAL: right C23 34 [49432 (CPT )] [facility] Comment on above: RADIOFREQUENCY ABLAT ION SPINAL: right C23 34 [75745 (CPT )] Start: 05-25-2025 End: 05-25-2025 Dstr nrolytc agnt parverteb fct sngl crvcl/thora RADIOFREQUENCY ABLATION SPINAL Cervical spondylosis without myelopathy 05/25/2025 9:30 AM EDT [facility] Start: 05-25-2025 Subsequent hospital visit by physician 05/25/2025 9:30 AM EDT Hospital Encounter [facility] [address] [place] [id number] Kamar Koroma MD [address] [place] [address] [facility] Start: 05-04-2025 End: 05-04-2025 Admission to same day surgery center 05/04/2025 9:33 AM EDT - 05/04/2025 9:45 AM EDT Surgery [facility] [address] [facility] [place] [phone] Kamar Koroma MD [address] [place] [id number] RADIOFREQUENCY ABLATION SPINAL: left C 2/3, 3/4 [90284 (CPT )] [facility] Comment on above: RADIOFREQUENCY ABLAT ION SPINAL: left C 2/3, 3/4 [64291 (CPT )] Start: 05-04-2025 End: 05-04-2025 Dstr nrolytc agnt parverteb fct sngl crvcl/thora RADIOFREQUENCY ABLATION SPINAL Cervical spondylosis without myelopathy 05/04/2025 9:33 AM EDT [facility] Start: 05-04-2025 Subsequent hospital visit by physician 05/04/2025 9:33 AM EDT Hospital Encounter [facility] [address] [place] [address] Kamar Koroma MD [address] [facility] [address] [facility] Start: 03-27-2025 End: 03-27-2025 Patient encounter procedure 03/27/2025 10:45 AM EDT Office Visit [facility] [address] [address] Rosita Borges PA [address] [place] [address] [facility] Start: 03-23-2025 Adult BMI Screening Adult BMI Screen ing [facility] Start: 03-23-2025 Tobacco Screening Tobacco Screening [facility] Start: 03-09-2025 End: 03-09-2025 Admission to same day surgery center 03/09/2025 10:07 AM EDT - 03/09/2025 10:14 AM EDT Surgery [facility] [address] [place] [address] Kamar Koroma MD [address] [place] [address] INJECTION BLOCK NERVE MEDIAL BRANCH: bilat C 2/3, 3/4 [64806 (CPT )] [facility] Comment on above: INJECTION BLOCK NERV E MEDIAL BRANCH: bilat C 2/3, 3/4 [78594 (CPT )] Start: 03-09-2025 End: 03-09-2025 Njx dx/ther agt pvrt facet jt crv/thrc 1 level INJECTION BLOCK NERVE MEDIAL BRANCH Cervical spondylosis without myelopathy 03/09/2025 10:07 AM EDT [facility] Start: 03-09-2025 Subsequent hospital visit by physician 03/09/2025 10:07 AM EDT Hospital Encounter [facility] [address] [place] [phone] Kamar Koroma MD [address] [place] [address] [facility] Start: 02-16-2025 Adult BMI Screening Adult BMI Screen ing [facility] Start: 02-16-2025 Tobacco Screening Tobacco Screening [facility] Start: 02-05-2025 [facility] Start: 02-02-2025 Comprehensive metabo lic 2000 panel - Serum or Plasma [facility] Start: 02-02-2025 [facility] Start: 02-01-2025 Hospital admission [facility] Start: 02-01-2025 [facility] Start: 02-01-2025 Bacteria identified in Urine by Culture Urine Culture [facility] Start: 02-01-2025 Urine culture [facility] Start: 01-20-2025 Urine culture [facility] Start: 01-20-2025 Bacteria identified in Urine by Culture Urine Culture [facility] Start: 07-16-2024 COVID-19 Vaccine ( season) COVID-19 Vaccine () [facility] Start: 07-16-2024 Influenza vaccination Influenza Vacc ine [facility] Start: 05-04-2024 End: 05-04-2024 Patient encounter procedure 05/04/2024 1:30 PM EDT Office Visit [facility] [address] [place] [address] Rosita Borges, PA [address] [place] [address] [facility] Start: 03-23-2024 End: 03-23-2024 Patient encounter procedure 03/23/2024 8:45 AM EDT Office Visit [facility] [address] [place] [phone] Rosita Borges, PA [address] [place] [address] [facility] Start: 03-03-2024 End: 03-03-2024 Admission to same day surgery center 03/03/2024 12:39 PM EDT - 03/03/2024 12:45 PM EDT Surgery [facility] [address] [place] [address] Kamar Koroma MD [address] [place] [address] INJECTION BLOCK NERVE MEDIAL BRANCH: bilat C23 34 [58001 (CPT )] [facility] Comment on above: INJECTION BLOCK NERV E MEDIAL BRANCH: bilat C23 34 [09271 (CPT )] Start: 03-03-2024 End: 03-03-2024 Njx dx/ther agt pvrt facet jt crv/thrc 1 level INJECTION BLOCK NERVE MEDIAL BRANCH Cervical spondylosis without myelopathy 03/03/2024 12:39 PM EDT [facility] Start: 03-03-2024 Subsequent hospital visit by physician 03/03/2024 12:39 PM EDT Hospital Encounter [facility] [address] [facility] [phone] Kamar Koroma MD [address] [place] [address] [facility] Start: 07-16-2023 COVID-19 Vaccine ( season) COVID-19 Vaccine ( season) [facility] Start: 2009 Fall Risk Screening Fall Risk Screen ing [facility] Start: 1994 Administration of varicella zoster vaccine Zoster (Shingles) Vaccine (1 of 2) [facility] Start: 1963 DTaP,Tdap and Td Vaccines (1 - Tdap) DTaP,Tdap and Td Vaccines (1 - Tdap) [facility] Start: 1962 Adult BMI Follow Up Plan Adult BMI F ollow Up Plan [facility] Start: 1956 Depression Screening Depression Scre ening [facility] Start: 1945 Medicare Annual Well ness Visit Medicare Annual Wellness Visit [facility] Start: 1945 Tobacco Counseling Tobacco Counselin g [facility] Comprehensive metabo lic 1999 panel - Serum or Plasma [facility] Comprehensive metabo lic 1999 panel - Serum or Plasma [facility] CT Abdomen and Pelvi s W contrast IV [facility] Work Phone: Patient referral [facility] Work Phone: [facility] Immunizations Immunization Date Immunization Notes Care Provider Fa cility 08-17-2024 influenza, high dose seasonal, preservative-free [facility] 08-17-2024 influenza virus vaccine, unspecified formulation Rosita CLEMONS Work Phone: [facility] 08-03-2023 influenza virus vaccine, unspecified formulation [facility] 08-03-2023 influenza, high dose seasonal, preservative-free Paras Sami Other [employer] Other 08-05-2022 influenza virus vaccine, split virus (incl. purified surface antigen) Paras Sami Other [employer] Other 08-05-2022 influenza virus vaccine, unspecified formulation Rosita CLEMONS Work Phone: [facility] 08-13-2021 influenza virus vaccine, split virus (incl. purified surface antigen) Paras Sami Other [employer] Other 08-13-2021 influenza virus vaccine, unspecified formulation [facility] 07-31-2020 influenza virus vaccine, split virus (incl. purified surface antigen) Paras Sami Other [employer] Other 07-31-2020 influenza virus vaccine, unspecified formulation [facility] 09-05-2018 influenza virus vaccine, split virus (incl. purified surface antigen) Paras Sami Other [employer] Other 09-05-2018 influenza virus vaccine, unspecified formulation [facility] Payers Date Payer Category Payer Medicare [id number] 2024 Managed Care Other (unspecified) [id number] PLAN [id number] 2024 Medicare [id number] 2009 Blue Cross Blue Shie ld Managed Care - Other ANTHEM [id number] 2009 Medicare [id number] 2009 Unknown ANTHEM BCBS OUT OF STATE TRADITIONAL [id number] 2009-Present [phone] [address] [place] [address] [id number] [id number] 1959 Medicare [id number] 1959 Self-pay 1959 Unknown [id number] 1959 Unknown [id number] 1959 Unknown [id number] [id number] 1944 Unknown [id number] 2.16840.1.076240.3.579. 2.593 1944 Unknown [id number] 2.16840.1.760076.3.579. 2.593 1944 Unknown [id number] 2.16840.1.283162.3.579. 2.593 1944 Unknown [id number] 2.16840.1.233051.3.579. 2.593 1944 Unknown [id number] 2.16.840.1.269500.3.579. 2.593 1944 Unknown [id number] 2.16.840.1.593166.3.579. 2.593 1944 Unknown [id number] 2.16.840.1.826805.3.579. 2.593 1944 Unknown [id number] 2.16.840.1.469890.3.579. 2.593 1944 Unknown [id number] 2.840.1.435580.3.579. 2.593 1944 Unknown [id number] 2.840.1.842252.3.579. 2.1286 1944 Unknown [id number] 2.840.1.255664.3.579. 2.1286 1944 Unknown [id number] 2.840.1.113636.3.579. 2.1286 1944 Unknown [id number] 2.840.1.883001.3.579. 2.1286 1944 Unknown [id number] 2.840.1.237521.3.579. 2.1286 Unknown [id number] Unknown [id number] 2.840.1.061007.3.579. 2.531 Unknown [id number] 2.840.1.170408.3.579. 2.531 Unknown [id number] 2.840.1.752910.3.579. 2.531 Social History Date Type Detail Facility Start: 10-10-2022 End: 03-16-2025 Tobacco smoking status NHIS Ex-smoker (finding) [facility] Start: 1945 Sex Assigned At Female F [facility] Start: 12-26-2020 End: 03-23-2024 Sex Assigned At [facility] [employer] Other Start: 03-28-2023 End: 01-20-2025 Tobacco smoking status NHIS Smoker (finding) [facility] Start: 06-20-2015 End: 12-07-2024 Sex Female (finding) [facility] Start: 02-17-2024 End: 03-23-2024 Tobacco smoking status NHIS Smokes tobacco daily [facility] [employer] [facility] History of tobacco use Cigarette Smoker [facility] Start: 02-17-2024 End: 03-23-2024 Tobacco use and exposure Smokeless tobacco [facility]-user [facility] Start: 03-23-2024 End: 04-12-2025 Alcoholic beverage intake Lifetime non-drinker (finding) [employer] [facility] Start: 12-26-2020 End: 03-23-2024 [facility] Start: 1945 Sex assigned at Not on file [facility] Start: 02-02-2025 End: 02-03-2025 SDOH Follow up SDOH Follow up [facility] Work Phone: Goals Date Patient Goal Desired Activity /State Functional Status Date Assessment Result Facility 02-05-2025 Functional status Patient at Baseline [facility] Work Phone: 02-01-2025 Functional status Patient at Baseline [facility] Work Phone: Mental Status Date Assessment Result Facility 02-05-2025 Cognitive function Cognitive Sta tus Patient at Baseline [facility] Work Phone: 02-01-2025 Cognitive function Cognitive Sta tus Patient at Baseline [facility] Work Phone: Clinical Notes 05-08-2022 to 05-01-2025 Telephone Encounter - Leana Rubin RN - 05/01/2025 2:01 PM EDTTelephone Encounter - Leana Rubin RN - 05/01/2025 2:01 PM KACI Gallegos - 04/12/2025 12:00 PM EDTPatient Instructions Note Date & Type Note Facility 05-01-2025 Miscellaneous Notes Pt calls stating she is feeling really good and said that Garret told her she can cancel all appts here if she is not having any pain. Please proceed with canceling all procedures, f/u visits as she is feeling really good, no pain documented in this encounter [facility] 05-01-2025 Telephone encounter Note Pt calls stating she is feeling really good and said that Garret told her she can cancel all appts here if she is not having any pain. Please proceed with canceling all procedures, f/u visits as she is feeling really good, no pain [facility] 04-12-2025 History of Presen t illness Narrative [facility] [address] [place] [address] Patient: Nya Jiang Sex: female : 1945 Age: 79 y.o. PCP: PARAS GALLARDO MD 04/12/2025 Nya Jiang is here for a(n) follow up for neck pain. She reports her neck pain has been increasing. Chief Complaint Patient presents with Neck Pain HPI: 03/12/2023 Bilateral C2/3, 3/4 Medial branch block with 80-90% relief for 7-8 months pre-proc pain was 9/10 post proc pain was 1-2/10 03/03/24 Bilateral C2/3, 3/4 Medial branch block with 100% relief pre-proc pain 10/10 post op 0/10 today 0/10 03/09/25 bilateral C2/3 3/4 MBB 100% relief for 2 days Pre-op pain score: 10/10 Post-op pain score: 5/10 2 hour post-op pain score: 2/10 4 hour post-op pain score: 0/10 which continues Neck Pain This is a chronic problem. The current episode started more than 1 year ago (08/2022). The problem has been gradually worsening. The pain is associated with nothing. The pain is present in the midline, left side, right side and occipital region. The pain is at a severity of 10/10. The patient is experiencing no pain. The symptoms are aggravated by bending and position (sleeping in bed position is worse, ROM increases pain). The pain is Worse during the day. Stiffness is present: worst in am. Pertinent negatives include no chest pain, fever, headaches (not often), numbness, pain with swallowing, photophobia, tingling, visual change or weakness. Treatments tried: rest, ice/heat, neck surg 2011, meds: mdp, motrin, tramadol, norco, tizadine, robaxin, aspcreme and biofreeze with some relief. PT at [facility] (Dec 2022),PT/HEP 2021. The treatment provided mild relief. The effect of pain on patient's ADLS: Moderate Impairment. Past Medical History: Diagnosis Date Chronic pain disorder COPD (chronic obstructive pulmonary disease) ([facility]) GERD (gastroesophageal reflux disease) Hyperlipidemia Hypertension Joint pain Neck pain Past Surgical History: Procedure Laterality Date HERNIA REPAIR HYSTERECTOMY INJECTION BLOCK NERVE MEDIAL BRANCH: bilat C 2/3 3/4 Bilateral 03/12/2023 Performed by Kamar Koroma MD at [facility] INJECTION BLOCK NERVE MEDIAL BRANCH: bilat C 2/3, 3/4 Bilateral 03/09/2025 Performed by Kamar Koroma MD at [facility] INJECTION BLOCK NERVE MEDIAL BRANCH: bilat C 2/3, 3/4 Bilateral 03/03/2024 Performed by Kamar Koroma MD at [facility] NECK SURGERY 2012 Allergies Allergen [...] Social History Narrative Not on file Social Drivers of Health Financial Resource Strain: Not on file Food Insecurity: No Food Insecurity (04/12/2025) Hunger Screening Food Insecurity - Worry: Never True Food Insecurity - Inability: Never True Transportation Needs: Not on file Physical Activity: Not on file Stress: Not on file Social Connections: Not on file Interpersonal Safety: Unknown (01/06/2024) Re[facility] from [facility] Safety & Environment Fear of Current or [...] Negative. Negative for rash and wound. Neurological: Negative. Negative for tingling, weakness, numbness and headaches (not often). Hematological: Negative. Psychiatric/Behavioral: Negative. Negative for self-injury and suicidal ideas. Vital Signs: BP (!) 118/96 Pulse 93 Resp 18 Ht 154.9 cm (5' 1 ) Wt 83.5 kg (184 lb) SpO2 95% BMI 34.77 kg/m Physical Exam: GENERAL - Healthy patient [...] without myelopathy - Case request operating room: RADIOFREQUENCY ABLATION SPINAL: right C23 34 - Case request operating room: RADIOFREQUENCY ABLATION SPINAL: left C23 34 RIGHT THEN LEFT C2/3, 3/4 Facet Radiofrequency Ablation - under fluoroscopy It is hopeful that [...] risks and benefits and wishes to proceed. The patient has undergone diagnostic injections targeting the above mentioned facet joints. There was significant improvement in the patient s pain and functionality for the duration of the local anesthetic (approximately 2 hours) with return of the original symptoms after that time. For this reason, it is felt that the patient is a good candidate to undergo thermal Radio Frequency Lesioning of the Medial Branch Nerves at 80 degrees celsius for 90 seconds. This will effectively denervate the arthritic facet joints previously targeted with the diagnostic injection. It is noted that the procedure often requires 3-4 weeks to provide benefit, but the benefit usually lasts for approximately 1 year and can then be repeated if necessary. Patients undergoing this procedure often have mild post-procedural pain for 3-4 days which is generally relieved with application of heat and over the counter pain relievers. Follow up 4 weeks after procedure The medications I have prescribed have been reviewed for medication interactions/contraindications [...] prescribe any controlled substance from this practice. The spine model was demonstrated and MRI was reviewed and used to explain the condition. Chronic conditions not treated during this visit that affected my overall medical decision making: Comorbidity- Obesity The patient does have a [...] them with the patient for these reasons. Comorbidity- Anxiety The patient describes a significant issue with anxiety. Although treatment is helpful with this regard, the patient is likely need special accommodation due to this condition. For this reason, necessary procedures will likely need to be performed under sedation to decrease procedural anxiety. OARRS: Reviewed. Scribe Statement: Soila Meraz CNA, scribed for and in the presence of KACI BECERRA who performed the above service. Soila Callahan CNA 04/12/25 1244 KACI Becerra 04/12/25 1341 documented in this encounter [facility] 04-12-2025 Instructions Soila Callahan CNA - 04/12/2025 12:00 PM EDT Radiofrequency Ablation (RFA) Radiofrequency ablation (or RFA) is a procedure used to reduce pain. An electrical current produced by a radio wave is used to heat up a small area of nerve tissue, thereby decreasing pain signals from that specific area. Which Conditions Are Treated With Radiofrequency Ablation? RFA can be used to help patients with chronic (long-lasting) back and neck pain and pain related to the degeneration of joints from arthritis. How Long Does Pain Relief from Radiofrequency Ablation Last? The degree of pain relief varies, depending on the cause and location of the pain. Pain relief from RFA can last from six to 12 months and in some cases, relief can last for years. More than 70% of patients treated with RFA experience pain relief. Is Radiofrequency Ablation Safe? RFA has proven to be a safe and effective way to treat some forms of pain. It also is generally well-tolerated, with very few associated complications. There is a slight risk of infection and bleeding at the insertion site. Your doctor can advise you about your particular risk. Can I Resume My Normal Activities After Radiofrequency Ablation? You will have a few restrictions immediately following radiofrequency ablation: If you had sedation, do not drive or operate machinery for at least 24 hours after the procedure. You may resume your normal diet and prescribed medications (including blood thinners) when you get home. Do not engage in any strenuous activity for the first 24 hours after the procedure. You may remove any bandages in the evening before going to bed. You may experience the following effects after RFA: Extremity numbness: If you have any leg numbness, walk only with assistance. This should only last a few hours and is due to the local anesthesia given during the procedure. Mild back discomfort: This may occur when the local anesthetic wears off and usually lasts two or three days. Apply heat to the area the day of the procedure and the day after the procedure. You may also use your usual pain medications and NSAID medications such as ibuprofen, naproxen, Aleve, Motrin, etc. if you are able. Expectations: Results will be gradual. It may take 3-4 weeks for full relief. If you feel severe pain at the injection site with swelling and redness, increased leg weakness, a fever of 101 or higher, headache (or worsening headache), changes in vision or urinary retention: Please call the office at , or have someone take you to the nearest emergency room. Tell the emergency room staff that you just had RFA. A doctor must evaluate you for bleeding and injection complications. If you lose control over bowel, bladder, or legs: Go to the nearest emergency room. If you are diabetic, the steroids used in this procedure can increase your blood sugar. If your blood sugar is 250mg/dL or higher, contact your primary care physician, or the doctor who manages your diabetes, to discuss how to get it back to normal. documented in this encounter [facility] 03-29-2025 History of Presen t illness Narrative [facility] [address] [place] [address] Patient: Nya Jiang Sex: female : 1945 Age: 79 y.o. PCP: PARAS GALLARDO MD 03/29/2025 Nya Jiang is here for a(n) post procedure follow up bilateral C 2/3 3/4 MBB 100 % relief which continues. Date of onset of pain: 08/2022 , pain has lasted greater than 3 months. Pain scale before treatment: 10/10 Pre-op pain score: 10/10 Post-op pain score: 5/10 2 hour post-op pain score: 2/10 4 hour post-op pain score: 0/10 Percentage and duration of relief after treatment: 100% relief for two days Pain scale after treatment: 0/10 Chief Complaint Patient presents with Neck Pain HPI: 03/12/2023 Bilateral C2/3, 3/4 Medial branch block with 80-90% relief for 7-8 months pre-proc pain was 9/10 post proc pain was 1-2/10 03/03/24 Bilateral C2/3, 3/4 Medial branch block with 100% relief pre-proc pain 10/10 post op 0/10 today 0/10 03/09/25 bilateral C2/3 3/4 MBB 100% relief for 2 days Pre-op pain score: 10/10 Post-op pain score: 5/10 2 hour post-op pain score: 2/10 4 hour post-op pain score: 0/10 which continues Neck Pain This is a chronic problem. The current episode started more than 1 year ago (08/2022). The problem has been gradually improving. The pain is associated with nothing. The pain is present in the midline, left side, right side and occipital region. The pain is at a severity of 0/10 (has not had any pain fortwo weeks). The patient is experiencing no pain. The symptoms are aggravated by bending and position (sleeping in bed position is worse, ROM increases pain). Stiffness is present: na. Pertinent negatives include no chest pain, fever, headaches, numbness, pain with swallowing, photophobia, tingling, visual change or weakness. Treatments tried: rest, ice/heat, neck surg 2011, meds: mdp, motrin, tramadol, norco, tizadine, robaxin, aspcreme and biofreeze with some relief. PT at [facility] (Dec 2022), HEP from PT currently. The treatment provided mild relief. The effect of pain on patient's ADLS: Moderate Impairment. Past Medical History: Diagnosis Date Chronic pain disorder COPD (chronic obstructive pulmonary disease) ([facility]) GERD (gastroesophageal reflux disease) Hyperlipidemia Hypertension Joint pain Neck pain Past Surgical History: Procedure Laterality Date HERNIA REPAIR HYSTERECTOMY INJECTION BLOCK NERVE MEDIAL BRANCH: bilat C 2/3 3/4 Bilateral 03/12/2023 Performed by Kamar Koroma MD at [facility] INJECTION BLOCK NERVE MEDIAL BRANCH: bilat C 2/3, 3/4 Bilateral 03/09/2025 Performed by Kamar Koroma MD at [facility] INJECTION BLOCK NERVE MEDIAL BRANCH: bilat C 2/3, 3/4 Bilateral 03/03/2024 Performed by Kamar Koroma MD at [facility] NECK SURGERY 2012 Allergies Allergen [...] Social History Narrative Not on file Social Drivers of Health Financial Resource Strain: Not on file Food Insecurity: No Food Insecurity (03/29/2025) Hunger Screening Food Insecurity - Worry: Never True Food Insecurity - Inability: Never True Transportation Needs: Not on file Physical Activity: Not on file Stress: Not on file Social Connections: Not on file Interpersonal Safety: Unknown (01/06/2024) Received from [facility] Safety & Environment Fear of Current or [...] Negative. Negative for rash and wound. Neurological: Negative for tingling, weakness, numbness and headaches. Hematological: Negative. Psychiatric/Behavioral: Negative. Negative for self-injury and suicidal ideas. Vital Signs: BP 149/68 (BP Site: Right Arm, BP Postition: Sitting) Pulse 101 Resp 18 SpO2 94% Physical Exam: GENERAL - Healthy patient that [...] Cervical spondylosis without myelopathy Monitor Follow up PRN The medications prescribed have been reviewed for [...] the previous injection and the benefit has continued through this visit. At this time, we will monitor the patient s symptoms from an interventional standpoint and consider another injection in the future if the patient s symptoms return or intensify severely. The patient was made aware that they should call if symptoms worsen or if their pain begins to have a negative impact on their quality of life and activities of daily living again. The spine model was demonstrated and MRI was reviewed and used to explain the condition. OARRS: Reviewed. Scribe Statement: Soila Meraz CNA, scribed for and in the presence of KACI BECERRA who performed the above service. Soila Callahan CNA 03/29/25 [id number] KACI Becerra 03/29/25 6247 documented in this encounter [facility] 03-16-2025 Evaluation note Diagnosis Onset Date Resolution Pain in left wrist acute March 6:09pm Anemia acute June 05 1:14pm Bloating acute June 05 1:14pm Cardiac murmur, unspecified acute June 05, 2025 1:14pm Constipated acute June 05 1:14pm Essential (primary) hypertension acute June 05, 2025 1:14pm [facility] Work Phone: 1(900) 339-657804-08-2025 History of Present illness Narrative* Rosita Borges, KACI - 02/20/2025 10:45 AM EDT [facility] [address] [place] [address] Patient: Nya Jiang Sex: female : 1945 Age: 79 y.o. PCP: PARAS GALLARDO MD 02/20/2025 Nya Jiang is here for a(n) follow up. She reports she has had 100% relief of pain since Bilateral C2/3, 3/4 Medial branch block until a few days ago when her pain returned. Chief Complaint Patient presents with Neck Pain [...] worse, ROM increases pain). The pain is Worse during the night. Stiffness is present All day (motion causes severe pain). Associated symptoms include headaches. Pertinent negatives include no chest pain, fever, numbness, pain with swallowing, photophobia, tingling, visual change or weakness. Treatments tried: rest, ice/heat, neck surg 2011, meds: mdp, motrin, tramadol, norco, tizadine, robaxin, aspcreme and biofreeze with some relief. PT at [facility] (Dec 2022), HEP from PT currently. The treatment provided mild relief. The effect of pain on patient's ADLS: Moderate Impairment. Past Medical History: Diagnosis Date Chronic pain disorder COPD (chronic obstructive pulmonary disease) ([facility]) GERD (gastroesophageal reflux disease) Hyperlipidemia Hypertension Joint pain Neck pain Past Surgical History: Procedure Laterality Date HERNIA REPAIR HYSTERECTOMY INJECTION BLOCK NERVE MEDIAL BRANCH: bilat C 2/3 3/4 Bilateral 03/12/2023 Performed by Kamar Koroma MD at [facility] INJECTION BLOCK NERVE MEDIAL BRANCH: bilat C 2/3, 3/4 Bilateral 03/03/2024 Performed by Kamar Koroma MD at [facility] NECK SURGERY 2012 Allergies Allergen [...] Social History Narrative Not on file Social Drivers of Health Financial Resource Strain: Not on file Food Insecurity: No Food Insecurity (02/20/2025) Hunger Screening Food Insecurity - Worry: Never True Food Insecurity - Inability: Never True Transportation Needs: Not on file Physical Activity: Not on file Stress: Not on file Social Connections: Not on file Interpersonal Safety: Unknown (01/06/2024) [facility] [place] Safety & Environment Fear of Current [...] self-injury and suicidal ideas. Vital Signs: BP 150/82 (BP Site: Left Arm, BP Postition: Sitting) Pulse 100 Resp 20 Ht 154.9 cm (5' 1 ) Wt 81.6 kg (180 lb) SpO2 97% BMI 34.01 kg/m Physical Exam: GENERAL - Healthy patient [...] up 2 weeks after procedure The medications I have prescribed have been reviewed for medication interactions/contraindications [...] before moving forward with any other options. The spine model was demonstrated and MRI was reviewed and used to explain the condition. Chronic conditions not treated during this visit that affected my overall medical decision making: Comorbidity- Obesity The patient does have a [...] for these reasons. OARRS: Reviewed. Scribe Statement: I, Soila Callahan CNA, scribed for and in the presence of KACI BECERRA who performed the above service. Soila Callahan CNA 02/20/25 1136 KACI Becerra 02/20/25 [address] [id number] Instructions* Patient Instructions* Soila Callahan CNA - 02/20/2025 10:45 AM EDT Facet Injection / Medial Branch Block (MBB) / Sacroiliac (SI) Joint Injection / Cluneal NB A facet injection and sacroiliac joint injection [...] the nearest emergency room. [facility] Discharge instructionsAmbulatory Orders* Initiate Home Health Time Frame: 02/05/25, Location: Determined By Patient Additional Instructions Please wear home oxygen at 3l with any activity. I may not have addressed or treated all of your medical illnesses or the abnormal blood work or imaging studies during this hospitalization. Please ask your primary care provider to obtain [facility] records entirely to follow up on all of the abnormal physical, laboratory, and imaging findings that I have not addressed. Please no smoking. I would recommend that you get low-dose radiation CAT scan of the chest every year to screen for lung cancer to be arranged by your primary care doctor or lung doctor. I would recommend an elective stress testing to be arranged by your primary care doctor. I would recommend to follow-up with pulmonary team (lung specialist ) to monitor your lung function and adjust your medications. Please return back to the emergency room or seek medical attention if your symptoms worsen or return. Discharging you from [facility] does not mean that your medical care ends here and now. You may still need additional monitoring, work up, investigation, and treatment plan to be handled from this point on by out patient providers including your primary care provider and specialists. For any medication question, please contact your retail pharmacist or your primary care provider. Thank you. HOME HEALTH TO MANAGE: Nursing/PT/OT to eval and treat Monitor VS per protocol Monitor Respiratory assessment--Respiratory failure, COPD Monitor Urinary assessment and for signs of infection--UTI Assist with medication management and provide medication education Provide education on new oxygen therapy and high [facility] Work Phone: 1(832) 672-693603-24-2025 Discharge summary Author Pushpa Brock [facility] Note Date/Time February 05, 2025 10: 20am [facility] [address] [place] [address] Discharge Summary Signed Patient: Nya Jiang MR#: [id number] : 1945 Acct:[id number] Age/Sex: 79 / F Adm Date: 5 Loc: Room: [address] [place] [address]: Pushpa Brock MD Copies to: MD Pushpa Morales MD~ Providers Date of Discharge: 02/05/25 Discharging Provider: Pushpa Brock Primary Care Provider: Paras Gallardo Consults: 02/01/25 23:32 Consult to Occupational Therapy Routine Comment: Physician Instructions: Consult to OT for:: Evaluation and Treat Consult to Physical Therapy Routine Comment: Physician Instructions: Consult to PT for:: Evaluation and Treat Discharge Diagnosis (1) Acute hypoxemic respiratory failure: (2) COPD exacerbation: (3) Acute UTI: Final Diagnosis Final Discharge Diagnosis: As listed above and others that are not listed Summary Hospital Course Hospital course: Mrs. Jiang is an 79-year-old female with a long standing history of smoking. She had been a smoker since the age of 15. She quit several weeks ago. She came in with shortness of breath and hypoxemia. She was admitted by my colleague with a diagnosis of acute COPD exacerbations and acute hypoxic respiratory failure. She was started on intravenous antibiotic, albuterol, Atrovent and Solu-Medrol. This is my first day seeing this patient. Patient is feeling well. She is on 1L of oxygen. Her chest exam is clear. No wheezing or rhonchi. Lower extremities no edema. Heart is regular. Abdomen soft, no tenderness. Came in, she had hypertensive urgency. Systolic blood pressure at 200. She wasrestarted back on home losartan 100 mg daily. Amlodipine was added. Blood pressure has been stable over the last 48 hours. UTI. Urine culture is showing contaminant. Patient had received already antibiotic for upper respiratory infection. Patient is requesting to be discharged home feeling great. We will order home O2 evaluation prior to discharge. I would recommend patient to follow-up with the pulmonary team. She has not seen 1. She will need outpatient PFTs. She would need also lung cancer screening given her smoking history. She will need yearly low-dose prescription of thechest to screen colon cancer. 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 Recommend patient to have an elective stress test to be arranged by PCP. No active chest pain. No angina. Patient has multiple complex medical issues as listed above and others that are not listed. All appear to be stable. Patient is feeling well and requesting paulina discharged home. At this time, I do not have any clear or strong clinical justification to extend inpatient hospitalization. Patient however will requireclose and frequent monitoring as well as additional work-up, investigation and therapeutic intervention that could take place from this point on post discharge. That is to prevent relapse, decompensation, rehospitalization and other medical implications. I instructed patient to ask her primary care doctor to obtain [facility] record entirely to address abnormalities seen on labs and imagingthat I have and have not addressed during this hospitalization, follow-up on pending blood work, imaging and pathology is if available and to follow-up on needed medical care in the outpatient setting. Time Spent with Patient Time spent providing/coordinating discharge services (# min): 45 Discharge Plan Discharge Plan Patient Disposition: Home Additional Instructions: I may not have addressed or treated all of your medical illnesses or the abnormal blood work or imaging studies during this hospitalization. Please ask your primary care provider to obtain [facility] records entirely to follow up on all of the abnormal physical, laboratory, and imaging findings that I have not addressed. Please no smoking. I would recommend that you get low-dose radiation CAT scan of the chest every year to screen for lung cancer to be arranged by your primary care doctor or lung doctor. I would recommend an elective stress testing to be arranged by your primary caredoctor. I would recommend to follow-up with pulmonary team (lung specialist ) to monitoryour lung function and adjust your medications. Please return back to the emergency room or seek medical attention if your symptoms worsen or return. Discharging you from [facility] does not mean that your medical care ends here and now. You may still need additional monitoring, work up, investigation, and treatment plan to be handled from this point on by out patient providers including your primary care provider and specialists. For any medication question, please contact your retail pharmacist or your primary care provider. Thank you. Instructions: Know your Meds Prescriptions: New amlodipine 5 mg Tablet 5 mg PO DAILY Qty: 30 1RF budesonide-formoterol [Symbicort] 160-4.5 mcg/actuation HFA aerosol inhaler 1 inh inhalation BID Qty: 10.2 1RF albuterol sulfate 90 mcg/actuation HFA aerosol inhaler 2 inh inhalation Q6HR PRN (Reason: shortness of breath or wheezing) Qty: 6.7 1RF Continued atorvastatin 80 mg tablet 80 mg PO QHS losartan 100 mg tablet 100 mg PO DAILY Discontinued oseltamivir [Tamiflu] 75 mg capsule 75 mg PO BID 5 Days Qty: 10 0RF azithromycin 250 mg tablet See Rx Instructions PO .COMPLEX Qty: 6 0RF Rx Instructions: For 250 mg dose pack: take 500 mg today (day 1), then 250 mg for 4 days (days 2- 5) PO Continuity of Care Document Health Concerns: A [facility] screening has identified you as FRAIL or AT RISK FOR FRAILTY. This puts you at a higher risk for infection, illness, falls, and other injuries. Here are four ways to help you reduce your risk of frailty: 1. IDENTIFY EARLY SIGNS OF FRAILTY ? Discuss contributing factors and concerns with your doctor 2. BE ACTIVE ? Walking and light strengthening exercises will help reduce weakness 3. EAT WELL ? Aim for three healthy meals a day that are high in protein 4. THINK POSITIVE ? Keep your mind active by being sociable and continuing to learn References: Stay Strong: Four Ways to Beat the Frailty Risk https://www.[facility].org/health/mxcxvuzk-vhe-vhnzjgqvpo/zssb-xwfghz-nibe- ways- lz-fqzj-vus-frailty-risk Exam Physical Exam Vital Signs: Temp Pulse Resp BP Pulse Ox O2 Del Method O2 Flow Rate 98.0 F 76 16 135/66 94 L Nasal Cannula 1 02/05/25 07:37 02/05/25 07:37 02/05/25 07:37 02/05/25 07:37 02/05/25 09:00 02/05/25 09:00 02/05/25 09:00 FiO2 90 02/03/25 16:00 Diagnostic Studies Completed and Pending Studies Labs on day of discharge: 02/05/25 05:53: Corrected WBC 16.2 H, RBC 5.31 H, Hgb 14.9, Hct 44.3, MCV 83.4, MCH 28.1, MCHC 33.7, RDW 13.1, Plt Count 434, MPV 6.7, PHA Creatinine Clear 54.42, Sodium 135 L, Potassium 4.2, Chloride 101, Carbon Dioxide 29.0, Anion Gap 9.2, BUN 21, Creatinine 0.82, Est GFR (CKD-EPI) > 60.0, Glucose 154 H, Calcium 9.3 Documented By: Pushpa Brock MD 02/05/25 1011 Signed By: <Electronically signed by Pushpa Brock MD> 02/05/25 1020 [facility] Work Phone: 1(608) 670-443003-24-2025 [place] [address] Discharge Summary Signed Patient: Nya Jiang MR#: [id number] : 1945 Acct:[id number] Age/Sex: 79 / F Adm Date: 5 Loc: Room: [address] [place] [address]: Pushpa Brock MD Copies to: MD Pushpa Morales MD~ Providers Date of Discharge: 02/05/25 Discharging Provider: Pushpa Brock Primary Care Provider: Paras Gallardo Consults: 02/01/25 23:32 Consult to Occupational Therapy Routine Comment: Physician Instructions: Consult to OT for:: Evaluation and Treat Consult to Physical Therapy Routine Comment: Physician Instructions: Consult to PT for:: Evaluation and Treat Discharge Diagnosis (1) Acute hypoxemic respiratory failure: (2) COPD exacerbation: (3) Acute UTI: Final Diagnosis Final Discharge Diagnosis: As listed above and others that are not listed Summary Hospital Course Hospital course: Mrs. Jiang is an 79-year-old female with a long standing history of smoking. She had been a smoker since the age of 15. She quit several weeks ago. She came in with shortness of breath and hypoxemia. She was admitted by my colleague with a diagnosis of acute COPD exacerbations and acute hypoxic respiratory failure. She was started on intravenous antibiotic, albuterol, Atrovent and Solu-Medrol. This is my first day seeing this patient. Patient is feeling well. She is on 1L of oxygen. Her chest exam is clear. No wheezing or rhonchi. Lower extremities no edema. Heart is regular. Abdomen soft,no tenderness. Came in, she had hypertensive urgency. Systolic blood pressure at 200. She wasrestarted back on home losartan 100 mg daily. Amlodipine was added. Blood pressure has been stable over the last 48 hours. UTI. Urine culture is showing contaminant. Patient had received already antibiotic for upper respiratory infection. Patient is requesting to be discharged home feeling great. We will order home O2 evaluation prior to discharge. I would recommend patient to follow-up with the pulmonary team. She has not seen 1. She will need outpatient PFTs. She would need also lung cancer screening given her smoking history. She will need yearly low-dose prescription of thechest to screen colon cancer. 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 Recommend patient to have an elective stress test to be arranged by PCP. No active chest pain. No angina. Patient has multiple complex medical issues as listed above and others that are not listed. All appear to be stable. Patient is feeling well and requesting paulina discharged home. At this time, I do not have any clear or strong clinical justification to extend inpatient hospitalization. Patient however will requireclose and frequent monitoring as well as additional work-up, investigation and therapeutic intervention that could take place from this point on post discharge. That is to prevent relapse, decompensation, rehospitalization and other medical implications. I instructed patient to ask her primary care doctor to obtain [facility] record entirely to address abnormalities seen on labs and imagingthat I have and have not addressed during this hospitalization, follow- up on pending blood work, imaging and pathology is if available and to follow-up on needed medical care in the outpatient setting. Time Spent with Patient Time spent providing/coordinating discharge services (# min): 45 Discharge Plan Discharge Plan Patient Disposition: Home Additional Instructions: I may not have addressed or treated all of your medical illnesses or the abnormal blood work or imaging studies during this hospitalization. Please ask your primary care provider to obtain [facility] records entirely to follow up on all of the abnormal physical, laboratory, and imaging findings thatI have not addressed. Please no smoking. I would recommend that you get low-dose radiation CAT scan of the chest every year to screen for lung cancer to be arranged by your primary care doctor or lung doctor. I would recommend an elective stress testing to be arranged by your primary caredoctor. I would recommend to follow-up with pulmonary team (lung specialist ) to monitoryour lung function and adjust your medications. Please return back to the emergency room or seek medical attention if your symptoms worsen or return. Discharging you from [facility] does not mean that your medical care ends here and now. You may still need additional monitoring, work up, investigation, and treatment plan to be handled from this point on by out patient providers including your primary care provider and specialists. For any medication question, please contact your retail pharmacist or your primary care provider. Thank you. Instructions: Know your Meds Prescriptions: New amlodipine 5 mg Tablet 5 mg PO DAILY Qty: 30 1RF budesonide-formoterol [Symbicort] 160-4.5 mcg/actuation HFA aerosol inhaler 1 inh inhalation BID Qty: 10.2 1RF albuterol sulfate 90 mcg/actuation HFA aerosol inhaler 2 inh inhalation Q6HR PRN (Reason: shortness of breath or wheezing) Qty: 6.7 1RF Continued atorvastatin 80 mg tablet 80 mg PO QHS losartan 100 mg tablet 100 mg PO DAILY Discontinued oseltamivir [Tamiflu] 75 mg capsule 75 mg PO BID 5 Days Qty: 10 0RF azithromycin 250 mg tablet See Rx Instructions PO .COMPLEX Qty: 6 0RF Rx Instructions: For 250 mg dose pack: take 500 mg today (day 1), then 250 mg for 4 days (days 2- 5) PO Continuity of Care Document Health Concerns: A [facility] screening has identified you as FRAIL or AT RISK FOR FRAILTY. This puts you at a higher risk for infection, illness, falls, and other injuries. Here are four ways to help you reduce your risk of frailty: 1. IDENTIFY EARLY SIGNS OF FRAILTY ? Discuss contributing factors and concerns with your doctor 2. BE ACTIVE ? Walking and light strengthening exercises will help reduce weakness 3. EAT WELL ? Aim for three healthy meals a day that are high in protein 4. THINK POSITIVE ? Keep your mind active by being sociable and continuing to learn References: Stay Strong: Four Ways to Beat the Frailty Risk [email or web address]-zxv-djqplyawdd/s gpn-[email or web address]-uvqu-wbsv-kx-rdpc-ylw-nquxmvq-xwzj Exam Physical Exam Vital Signs: Temp Pulse Resp BP Pulse Ox O2 Del Method O2 Flow Rate 98.0 F 76 16 135/66 94 L Nasal Cannula 1 02/05/25 07:37 02/05/25 07:37 02/05/25 07:37 02/05/25 07:37 02/05/25 09:00 02/05/25 09:00 02/05/25 09:00 FiO2 90 02/03/25 16:00 Diagnostic Studies Completed and Pending Studies Labs on day of discharge: 02/05/25 05:53: Corrected WBC 16.2 H, RBC 5.31 H, Hgb 14.9, Hct 44.3, MCV 83.4, MCH 28.1, MCHC 33.7, RDW 13.1, Plt Count 434, MPV 6.7, PHA Creatinine Clear 54.42, Sodium 135 L, Potassium 4.2, Chloride 101, Carbon Dioxide 29.0, Anion Gap 9.2, BUN 21, Creatinine 0.82, Est GFR (CKD-EPI) > 60.0, Glucose 154 H, Calcium 9.3 Documented By: Pushpa Brock MD 02/05/25 1011 Signed By: 02/05/25 1020 [facility]03-23-2025 Progress note Author Carole Kauffman [facility] Note Date/Time February 04, 2025 12: 11pm [facility] [address] [place] [address] Hospitalist Progress Note Signed Patient: Nya Jiang MR#: [id number] : 1945 Acct:[id number] Age/Sex: 79 / F Adm Date: 5 Loc: Room: [address] [place] [address] Type: ADM IN Attending Dr: Carole Kauffman MD Copies to: ~ Date of Service: 02/04/2025 Subjective Subjective Narrative: Patient was seen and evaluated at bedside, remained afebrile, stable hemodynamics, patient still requiring 3 L nasal cannula, clinically improving, minimal cough and sputum production. attempted walk study today and pt desaturated down to 85% placed on 3 L NC on exertion. Exam Physical Exam Vital Signs: Temp Pulse Resp BP Pulse Ox O2 Del Method O2 Flow Rate 97.7 F 76 16 118/55 L 91 L Room Air 3 02/04/25 10:45 02/04/25 10:45 02/04/25 10:45 02/04/25 10:45 02/04/25 10:45 02/04/25 10:45 02/04/25 10:57 FiO2 90 02/03/25 16:00 Narrative: Const General: cooperative HEENT Normal oropharyngeal mucosa without any ulcers or exudates Eyes: Conjunctiva normal Pulmonary Auscultation: diminished breath sounds, b/l scattered wheezes Cardiovascular Rate: normal rate Rhythm: regular rhythm Heart Sounds: S1 normal, S2 normal and no murmurs GI Inspection: non-distended Palpation: soft, not firm and nontender. No rigidity or rebound. Deferred Neuro General: alert, awake and oriented x3. No obvious new focal deficit Musculoskeletal: normal range of motion Extrem General: no cyanosis, no pedal edema Psych Appearance: appropriate affect. Grossly normal Objective Lab Results 02/02/25 05:49 02/02/25 05:49 Microbiology Results Microbiology 02/01/25 12:20 Urine - Clean-Voided Midstream Urine Culture - Final 75,000 colonies/ml mixed bacterial skin contaminants including mixed gram negative bacilli - 2 Days Meds Allergies and Active Meds Allergies cefdinir Allergy (Unknown, Verified 02/01/25 11:04) Unknown Reaction nylon Allergy (Unknown, Verified 02/01/25 11:04) Swelling penicillin G benzathine Allergy (Unknown, Verified 02/01/25 11:04) Unknown Reaction venlafaxine (Effexor) Allergy (Unknown, Verified 02/01/25 11:04) Unknown Reaction Penicillins Allergy (Verified 02/01/25 11:04) Rash Active Meds: Active Medications Generic Name Dose Route Start Last Admin Trade Name Freq PRN Reason Stop Dose Admin Acetaminophen 650 mg 02/01/25 14:03 Acetaminophen 325 Mg Tablet PO 02/01/26 14:02 Q6HR PRN Pain Scale 1 - 3 or fever Albuterol 2.5 mg 02/01/25 14:03 Albuterol Neb 2.5 Mg/3 Ml Vial.Neb INHALATION 02/01/26 14:02 Q3H PRN Cough/Wheeze Albuterol/Ipratropium 3 ml 02/01/25 16:00 02/04/25 09:42 Ipratropium/Albuterol 0.5-3 Mg 3 Ml Ampul.Neb INHALATION 02/01/26 15:59 3 ml QID.RESP LOUIS Administration Amlodipine Besylate 5 mg 02/01/25 16:30 02/04/25 08:50 Amlodipine 5 Mg Tablet PO 02/01/26 16:29 5 mg DAILY LOUIS Administration Atorvastatin Calcium 80 mg 02/01/25 22:00 02/03/25 21:27 Atorvastatin 80 Mg Tablet PO 02/01/26 21:59 80 mg QHS L[place]IS Administration Azithromycin 500 mg 02/03/25 15:00 02/03/25 14:39 Azithromycin 250 Mg Tablet PO 02/05/25 23:59 500 mg Q24H L[place]IS Administration Benzonatate 200 mg 02/01/25 16:15 Benzonatate 100 Mg Capsule PO 02/01/26 16:14 TID PRN Cough Budesonide 0.5 mg 02/01/25 21:00 02/04/25 05:25 Budesonide 0.5 Mg/2 Ml Ampul.Neb INHALATION 02/01/26 20:59 Not Given BID LOUIS Enoxaparin Sodium 40 mg 02/02/25 10:00 02/04/25 09:00 Enoxaparin 40 Mg/0.4 Ml Syringe SUBCUT 02/02/26 09:59 40 mg DAILY@10 L[place]IS Administration Guaifenesin/Dextromethorphan 1 tab 02/01/25 21:00 02/04/25 08:50 Guaif/Dextromethorphan 600-30mg Tab.Er.12h PO 02/01/26 20:59 1 tab Q12HR L[place]IS Administration Hydralazine HCl 10 mg 02/01/25 14:03 Hydralazine 20 Mg/Ml Vial IV-PUSH 02/01/26 14:02 Q4H PRN Hypertension Ceftriaxone Sodium 1 gm in 50 mls @ 100 mls/hr 02/02/25 13:00 02/03/25 14:39 Rocephin IV 02/05/25 23:59 100 mls/hr Q24H [place]IS Administration Losartan Potassium 100 mg 02/02/25 09:00 02/04/25 08:50 Losartan 50 Mg Tablet PO 02/02/26 08:59 100 mg DAILY L[place]IS Administration Methylprednisolone Sodium Succinate 40 mg 02/05/25 09:00 Methylprednisolone Sod Succ/Pf 40 Mg/Ml (1ml) Vial IV-PUSH 02/05/26 08:59 DAILY L[place]IS Morphine Sulfate 2 mg 02/01/25 14:03 02/02/25 16:47 Morphine Sulfate 2 Mg/Ml Vial IV-PUSH 2 mg Q4H PRN Administration Pain Scale 8 - 10 Prochlorperazine Edisylate 5 mg 02/01/25 14:03 02/02/25 14:57 Prochlorperazine Edisylate 10 Mg/2 Ml Vial IV-PUSH 02/01/26 14:02 5 mg Q4H PRN Administration Nausea And Vomiting Sodium Chloride 0 ml 02/01/25 11:03 02/04/25 08:50 Sodium Chloride 0.9 % 10 Ml Syringe IV-PUSH 02/01/26 11:02 10 ml PRN PRN Administration Flush A&P - Hospitalist Assessment/Plan (1) Acute hypoxemic respiratory failure: (2) COPD exacerbation: (3) Acute UTI: Plan Acute hypoxemic respiratory failure secondary to acute COPD exacerbation Acute UTI -Afebrile, no leukocytosis -Chest x-ray showing no acute pathology -Respiratory panel unremarkable -Continue Rocephin and Azithromycin. Plan to complete 5 days total. -Continue DuoNebs QID -Continue Solumedrol IV as directed -Continue Budesonide BID -Mucinex as directed -PEP as directed -Spirometry -Monitor for fever/leukocytosis home medications resumed Diet: regular DVT ppx:Lovenox Code status: Full Status: inpatient Discussed with patient at bedside. All questions answered. In agreement with theabove plan Encouraged to use spirometry and PEP, continue to ambulate in the room as tolerated. Wean off oxygen as tolerated. Walk study done today and pt required 3 L NC. Continue current management Carole Sage MD Internal Medicine Hospitalist Attending Physician Documented By: Carole Kauffman MD 02/04/25 12 07 Signed By: <Electronically signed by Carole Kauffman MD> 02/04/[address] [place] [address] Work Phone: [phone]) [phone] [id number] Hospital[place] Progress Note Signed Patient: Nya Jiang MR#: [id number] : 1945 Acct:[id number] Age/Sex: 79 / F Adm Date: 5 Loc: 3T Room: [address] [place] [address] Type: ADM IN Attending Dr: Carole Kauffman MD Copies to: ~ Date of Service: 02/04/2025 Subjective Subjective Narrative: Patient was seen and evaluated at bedside, remained afebrile, stable hemodynamics, patient still requiring 3 L nasal cannula, clinically improving, minimal cough and sputum production. attempted walkstudy today and pt desaturated down to 85% placed on 3 L NC on exertion. Exam Physical Exam Vital Signs: Temp Pulse Resp BP Pulse Ox O2 Del Method O2 Flow Rate 97.7 F 76 16 118/55 L 91 L Room Air 3 02/04/25 10:45 02/04/25 10:45 02/04/25 10:45 02/04/25 10:45 02/04/25 10:45 02/04/25 10:45 02/04/25 10:57 FiO2 90 02/03/25 16:00 Narrative: Const General: cooperative HEENT Normal oropharyngeal mucosa without any ulcers or exudates Eyes: Conjunctiva normal Pulmonary Auscultation: diminished breath sounds, b/l scattered wheezes Cardiovascular Rate: normal rate Rhythm: regular rhythm Heart Sounds: S1 normal, S2 normal and no murmurs GI Inspection: non-distended Palpation: soft, not firm and nontender. No rigidity or rebound. Deferred Neuro General: alert, awake and oriented x3. No obvious new focal deficit Musculoskeletal: normal range of motion Extrem General: no cyanosis, no pedal edema Psych Appearance: appropriate affect. Grossly normal Objective Lab Results 02/02/25 05:49 02/02/25 05:49 Microbiology Results Microbiology 02/01/25 12:20 Urine - Clean-Voided Midstream Urine Culture - Final 75,000 colonies/ml mixed bacterial skin contaminants including mixed gram negative bacilli - 2 Days Meds Allergies and Active Meds Allergies cefdinir Allergy (Unknown, Verified 02/01/25 11:04) Unknown Reaction nylon Allergy (Unknown, Verified 02/01/25 11:04) Swelling penicillin G benzathine Allergy (Unknown, Verified 02/01/25 11:04) Unknown Reaction venlafaxine (Effexor) Allergy (Unknown, Verified 02/01/25 11:04) Unknown Reaction Penicillins Allergy (Verified 02/01/25 11:04) Rash Active Meds: Active Medications Generic Name Dose Route Start Last Admin Trade Name Freq PRN Reason Stop Dose Admin Acetaminophen 650 mg 02/01/25 14:03 Acetaminophen 325 Mg Tablet PO 02/01/26 14:02 Q6HR PRN Pain Scale 1 - 3 or fever Albuterol 2.5 mg 02/01/25 14:03 Albuterol Neb 2.5 Mg/3 Ml Vial.Neb INHALATION 02/01/26 14:02 Q3H PRN Cough/Wheeze Albuterol/Ipratropium 3 ml 02/01/25 16:00 02/04/25 09:42 Ipratropium/Albuterol 0.5-3 Mg 3 Ml Ampul.Neb INHALATION 02/01/26 15:59 3 ml QID.RESP L[place]IS Administration Amlodipine Besylate 5 mg 02/01/25 16:30 02/04/25 08:50 Amlodipine 5 Mg Tablet PO 02/01/26 16:29 5 mg DAILY L[place]IS Administration Atorvastatin Calcium 80 mg 02/01/25 22:00 02/03/25 21:27 Atorvastatin 80 Mg Tablet PO 02/01/26 21:59 80 mg QHS [place]IS Administration Azithromycin 500 mg 02/03/25 15:00 02/03/25 14:39 Azithromycin 250 Mg Tablet PO 02/05/25 23:59 500 mg Q24H [place] Administration Benzonatate 200 mg 02/01/25 16:15 Benzonatate 100 Mg Capsule PO 02/01/26 16:14 TID PRN Cough Budesonide 0.5 mg 02/01/25 21:00 02/04/25 05:25 Budesonide 0.5 Mg/2 Ml Ampul.Neb INHALATION 02/01/26 20:59 Not Given BID L[place]IS Enoxaparin Sodium 40 mg 02/02/25 10:00 02/04/25 09:00 Enoxaparin 40 Mg/0.4 Ml Syringe SUBCUT 02/02/26 09:59 40 mg DAILY@10 [place] Administration Guaifenesin/Dextromethorphan 1 tab 02/01/25 21:00 02/04/25 08:50 Guaif/Dextromethorphan 600-30mg Tab.Er.12h PO 02/01/26 20:59 1 tab Q12HR [place] Administration Hydralazine HCl 10 mg 02/01/25 14:03 Hydralazine 20 Mg/Ml Vial IV-PUSH 02/01/26 14:02 Q4H PRN Hypertension Ceftriaxone Sodium 1 gm in 50 mls @ 100 mls/hr 02/02/25 13:00 02/03/25 14:39 Rocephin IV 02/05/25 23:59 100 mls/hr Q24H [place] Administration Losartan Potassium 100 mg 02/02/25 09:00 02/04/25 08:50 Losartan 50 Mg Tablet PO 02/02/26 08:59 100 mg DAILY L[place]IS Administration Methylprednisolone Sodium Succinate 40 mg 02/05/25 09:00 Methylprednisolone Sod Succ/Pf 40 Mg/Ml (1ml) Vial IV-PUSH 02/05/26 08:59 DAILY [facility]IS Morphine Sulfate 2 mg 02/01/25 14:03 02/02/25 16:47 Morphine Sulfate 2 Mg/Ml Vial IV-PUSH 2 mg Q4H PRN Administration Pain Scale 8 - 10 Prochlorperazine Edisylate 5 mg 02/01/25 14:03 02/02/25 14:57 Prochlorperazine Edisylate 10 Mg/2 Ml Vial IV-PUSH 02/01/26 14:02 5 mg Q4H PRN Administration Nausea And Vomiting Sodium Chloride 0 ml 02/01/25 11:03 02/04/25 08:50 Sodium Chloride 0.9 % 10 Ml Syringe IV-PUSH 02/01/26 11:02 10 ml PRN PRN Administration Flush A&P - Hospitalist Assessment/Plan (1) Acute hypoxemic respiratory failure: (2) COPD exacerbation: (3) Acute UTI: Plan Acute hypoxemic respiratory failure secondary to acute COPD exacerbation Acute UTI -Afebrile, no leukocytosis -Chest x-ray showing no acute pathology -Respiratory panel unremarkable -Continue Rocephin and Azithromycin. Plan to complete 5 days total. -Continue DuoNebs QID -Continue Solumedrol IV as directed -Continue Budesonide BID -Mucinex as directed -PEP as directed -Spirometry -Monitor for fever/leukocytosis home medications resumed Diet: regular DVT ppx:Lovenox Code status: Full Status: inpatient Discussed with patient at bedside. All questions answered. In agreement with theabove plan Encouraged to use spirometry and PEP, continue to ambulate in the room as tolerated. Wean off oxygen as tolerated. Walk study done today and pt required 3 L NC. Continue current management Carole Sage MD Internal Medicine Hospitalist Attending Physician Documented By: Carole Kauffman MD 02/04/25 12 07 Signed By: 02/04/25 1211 [facility]03-22-2025 Progress note Author Carole Kauffman [facility] Note Date/Time February 03, 2025 11: 19am [facility] [address] [place] [address] Hospitalist Progress Note Signed Patient: Nya Jiang MR#: [id number] : 1945 Acct:[id number] Age/Sex: 79 / F Adm Date: 5 Loc: Room: [address] [place] [address] Type: ADM IN Attending Dr: Carole Kauffman MD Copies to: ~ Date of Service: 02/03/2025 Subjective Subjective Narrative: Patient was seen and evaluated at bedside, remained afebrile, stable hemodynamics, patient still requiring 3 L nasal cannula, she reports much improvement in her cough and less sputum production, becoming clear in color, still has some wheezes on exam bilaterally, encouraged to ambulate in the room as tolerated. Remains on breathing treatments 4 times daily, IV steroids, IV antibiotics Exam Physical Exam Vital Signs: Temp Pulse Resp BP Pulse Ox O2 Del Method O2 Flow Rate 97.7 F 74 17 118/67 94 L Nasal Cannula 3 02/03/25 09:00 02/03/25 09:00 02/03/25 09:00 02/03/25 09:00 02/03/25 09:00 02/03/25 09:00 02/03/25 09:00 Narrative: Const General: cooperative HEENT Normal oropharyngeal mucosa without any ulcers or exudates Eyes: Conjunctiva normal Pulmonary Auscultation: diminished breath sounds, b/l expiratory wheezes Cardiovascular Rate: normal rate Rhythm: regular rhythm Heart Sounds: S1 normal, S2 normal and no murmurs GI Inspection: non-distended Palpation: soft, not firm and nontender. No rigidity or rebound. Deferred Neuro General: alert, awake and oriented x3. No obvious new focal deficit Musculoskeletal: normal range of motion Extrem General: no cyanosis, no pedal edema Psych Appearance: appropriate affect. Grossly normal Objective Lab Results 02/02/25 05:49 02/02/25 05:49 Microbiology Results Microbiology 02/01/25 12:20 Urine - Clean-Voided Midstream Urine Culture - Final 75,000 colonies/ml mixed bacterial skin contaminants including mixed gram negative bacilli - 2 Days Meds Allergies and Active Meds Allergies cefdinir Allergy (Unknown, Verified 02/01/25 11:04) Unknown Reaction nylon Allergy (Unknown, Verified 02/01/25 11:04) Swelling penicillin G benzathine Allergy (Unknown, Verified 02/01/25 11:04) Unknown Reaction venlafaxine (Effexor) Allergy (Unknown, Verified 02/01/25 11:04) Unknown Reaction Penicillins Allergy (Verified 02/01/25 11:04) Rash Active Meds: Active Medications Generic Name Dose Route Start Last Admin Trade Name Freq PRN Reason Stop Dose Admin Acetaminophen 650 mg 02/01/25 14:03 Acetaminophen 325 Mg Tablet PO 02/01/26 14:02 Q6HR PRN Pain Scale 1 - 3 or fever Albuterol 2.5 mg 02/01/25 14:03 Albuterol Neb 2.5 Mg/3 Ml Vial.Neb INHALATION 02/01/26 14:02 Q3H PRN Cough/Wheeze Albuterol/Ipratropium 3 ml 02/01/25 16:00 02/03/25 08:38 Ipratropium/Albuterol 0.5-3 Mg 3 Ml Ampul.Neb INHALATION 02/01/26 15:59 3 ml QID.RESP L[place]IS Administration Amlodipine Besylate 5 mg 02/01/25 16:30 02/03/25 10:05 Amlodipine 5 Mg Tablet PO 02/01/26 16:29 5 mg DAILY LOIUS Administration Atorvastatin Calcium 80 mg 02/01/25 22:00 02/02/25 21:36 Atorvastatin 80 Mg Tablet PO 02/01/26 21:59 80 mg QHS [place] Administration Benzonatate 200 mg 02/01/25 16:15 Benzonatate 100 Mg Capsule PO 02/01/26 16:14 TID PRN Cough Budesonide 0.5 mg 02/01/25 21:00 02/03/25 08:39 Budesonide 0.5 Mg/2 Ml Ampul.Neb INHALATION 02/01/26 20:59 0.5 mg BID L[place]IS Administration Enoxaparin Sodium 40 mg 02/02/25 10:00 02/03/25 10:05 Enoxaparin 40 Mg/0.4 Ml Syringe SUBCUT 02/02/26 09:59 40 mg DAILY@10 [place] Administration Guaifenesin/Dextromethorphan 1 tab 02/01/25 21:00 02/03/25 10:05 Guaif/Dextromethorphan 600-30mg Tab.Er.12h PO 02/01/26 20:59 1 tab Q12HR [place] Administration Hydralazine HCl 10 mg 02/01/25 14:03 Hydralazine 20 Mg/Ml Vial IV-PUSH 02/01/26 14:02 Q4H PRN Hypertension Ceftriaxone Sodium 1 gm in 50 mls @ 100 mls/hr 02/02/25 13:00 02/02/25 12:00 Rocephin IV 100 mls/hr Q24H [place] Administration Azithromycin 500 mg in 250 mls @ 250 mls/hr 02/01/25 15:00 02/02/25 14:58 Zithromax IV 250 mls/hr Q24H [place] Administration Losartan Potassium 100 mg 02/02/25 09:00 02/03/25 10:05 Losartan 50 Mg Tablet PO 02/02/26 08:59 100 mg DAILY [place] Administration Methylprednisolone Sodium Succinate 40 mg 02/01/25 20:30 02/03/25 10:05 Methylprednisolone Sod Succ/Pf 40 Mg/Ml (1ml) Vial IV-PUSH 02/02/26 20:29 40 mg Q12H [place] Administration Morphine Sulfate 2 mg 02/01/25 14:03 02/02/25 16:47 Morphine Sulfate 2 Mg/Ml Vial IV-PUSH 2 mg Q4H PRN Administration Pain Scale 8 - 10 Prochlorperazine Edisylate 5 mg 02/01/25 14:03 02/02/25 14:57 Prochlorperazine Edisylate 10 Mg/2 Ml Vial IV-PUSH 02/01/26 14:02 5 mg Q4H PRN Administration Nausea And Vomiting Sodium Chloride 0 ml 02/01/25 11:03 02/01/25 20:27 Sodium Chloride 0.9 % 10 Ml Syringe IV-PUSH 02/01/26 11:02 10 ml PRN PRN Administration Flush A&P - Hospitalist Assessment/Plan (1) Acute hypoxemic respiratory failure: (2) COPD exacerbation: (3) Acute UTI: Plan Acute hypoxemic respiratory failure secondary to acute COPD exacerbation Acute UTI -Afebrile, no leukocytosis -Chest x-ray showing no acute pathology -Respiratory panel unremarkable -Continue Rocephin and Azithromycin. Plan to complete 5 days total. -Continue DuoNebs QID -Continue Solumedrol IV as directed -Continue Budesonide BID -Mucinex as directed -PEP as directed -Spirometry -Monitor for fever/leukocytosis home medications resumed Diet: regular DVT ppx:Lovenox Code status: Full Status: inpatient Discussed with patient at bedside. All questions answered. In agreement with theabove plan Encouraged to use spirometry and PEP, ambulate in the room as tolerated. Wean off oxygen as tolerated. Will need walk study on discharge Carole Sage MD Internal Medicine Hospitalist Attending Physician Documented By: Carole Kauffman MD 02/03/25 11 17 Signed By: <Electronically signed by Carole Kauffman MD> 02/03/[address] [place] [address] Work Phone: 1(225) 698-644003-22-2025 [place] [address] Hospitalist Progress Note Signed Patient: Nya Jiang MR#: [id number] : 1945 Acct:[id number] Age/Sex: 79 / F Adm Date: 5 Loc: Room: [address] [place] [address] Type: ADM IN Attending Dr: Carole Kauffman MD Copies to: ~ Date of Service: 02/03/2025 Subjective Subjective Narrative: Patient was seen and evaluated at bedside, remained afebrile, stable hemodynamics, patient still requiring 3 L nasal cannula, she reports much improvement in her cough and less sputum production, becoming clear in color, still has some wheezes on exam bilaterally, encouraged to ambulate in the roomas tolerated. Remains on breathing treatments 4 times daily, IV steroids, IV antibiotics Exam Physical Exam Vital Signs: Temp Pulse Resp BP Pulse Ox O2 Del Method O2 Flow Rate 97.7 F 74 17 118/67 94 L Nasal Cannula 3 02/03/25 09:00 02/03/25 09:00 02/03/25 09:00 02/03/25 09:00 02/03/25 09:00 02/03/25 09:00 02/03/25 09:00 Narrative: Const General: cooperative HEENT Normal oropharyngeal mucosa without any ulcers or exudates Eyes: Conjunctiva normal Pulmonary Auscultation: diminished breath sounds, b/l expiratory wheezes Cardiovascular Rate: normal rate Rhythm: regular rhythm Heart Sounds: S1 normal, S2 normal and no murmurs GI Inspection: non-distended Palpation: soft, not firm and nontender. No rigidity or rebound. Deferred Neuro General: alert, awake and oriented x3. No obvious new focal deficit Musculoskeletal: normal range of motion Extrem General: no cyanosis, no pedal edema Psych Appearance: appropriate affect. Grossly normal Objective Lab Results 02/02/25 05:49 02/02/25 05:49 Microbiology Results Microbiology 02/01/25 12:20 Urine - Clean-Voided Midstream Urine Culture - Final 75,000 colonies/ml mixed bacterial skin contaminants including mixed gram negative bacilli - 2 Days Meds Allergies and Active Meds Allergies cefdinir Allergy (Unknown, Verified 02/01/25 11:04) Unknown Reaction nylon Allergy (Unknown, Verified 02/01/25 11:04) Swelling penicillin G benzathine Allergy (Unknown, Verified 02/01/25 11:04) Unknown Reaction venlafaxine (Effexor) Allergy (Unknown, Verified 02/01/25 11:04) Unknown Reaction Penicillins Allergy (Verified 02/01/25 11:04) Rash Active Meds: Active Medications Generic Name Dose Route Start Last Admin Trade Name Freq PRN Reason Stop Dose Admin Acetaminophen 650 mg 02/01/25 14:03 Acetaminophen 325 Mg Tablet PO 02/01/26 14:02 Q6HR PRN Pain Scale 1 - 3 or fever Albuterol 2.5 mg 02/01/25 14:03 Albuterol Neb 2.5 Mg/3 Ml Vial.Neb INHALATION 02/01/26 14:02 Q3H PRN Cough/Wheeze Albuterol/Ipratropium 3 ml 02/01/25 16:00 02/03/25 08:38 Ipratropium/Albuterol 0.5-3 Mg 3 Ml Ampul.Neb INHALATION 02/01/26 15:59 3 ml QID.RESP [place]IS Administration Amlodipine Besylate 5 mg 02/01/25 16:30 02/03/25 10:05 Amlodipine 5 Mg Tablet PO 02/01/26 16:29 5 mg DAILY [place] Administration Atorvastatin Calcium 80 mg 02/01/25 22:00 02/02/25 21:36 Atorvastatin 80 Mg Tablet PO 02/01/26 21:59 80 mg QHS [place] Administration Benzonatate 200 mg 02/01/25 16:15 Benzonatate 100 Mg Capsule PO 02/01/26 16:14 TID PRN Cough Budesonide 0.5 mg 02/01/25 21:00 02/03/25 08:39 Budesonide 0.5 Mg/2 Ml Ampul.Neb INHALATION 02/01/26 20:59 0.5 mg BID [place] Administration Enoxaparin Sodium 40 mg 02/02/25 10:00 02/03/25 10:05 Enoxaparin 40 Mg/0.4 Ml Syringe SUBCUT 02/02/26 09:59 40 mg DAILY@10 [place] Administration Guaifenesin/Dextromethorphan 1 tab 02/01/25 21:00 02/03/25 10:05 Guaif/Dextromethorphan 600-30mg Tab.Er.12h PO 02/01/26 20:59 1 tab Q12HR [facility] Administration Hydralazine HCl 10 mg 02/01/25 14:03 Hydralazine 20 Mg/Ml Vial IV-PUSH 02/01/26 14:02 Q4H PRN Hypertension Ceftriaxone Sodium 1 gm in 50 mls @ 100 mls/hr 02/02/25 13:00 02/02/25 12:00 Rocephin IV 100 mls/hr Q24H [facility] Administration Azithromycin 500 mg in 250 mls @ 250 mls/hr 02/01/25 15:00 02/02/25 14:58 Zithromax IV 250 mls/hr Q24H [facility] Administration Losartan Potassium 100 mg 02/02/25 09:00 02/03/25 10:05 Losartan 50 Mg Tablet PO 02/02/26 08:59 100 mg DAILY [facility] Administration Methylprednisolone Sodium Succinate 40 mg 02/01/25 20:30 02/03/25 10:05 Methylprednisolone Sod Succ/Pf 40 Mg/Ml (1ml) Vial IV-PUSH 02/02/26 20:29 40 mg Q12H [facility] Administration Morphine Sulfate 2 mg 02/01/25 14:03 02/02/25 16:47 Morphine Sulfate 2 Mg/Ml Vial IV-PUSH 2 mg Q4H PRN Administration Pain Scale 8 - 10 Prochlorperazine Edisylate 5 mg 02/01/25 14:03 02/02/25 14:57 Prochlorperazine Edisylate 10 Mg/2 Ml Vial IV-PUSH 02/01/26 14:02 5 mg Q4H PRN Administration Nausea And Vomiting Sodium Chloride 0 ml 02/01/25 11:03 02/01/25 20:27 Sodium Chloride 0.9 % 10 Ml Syringe IV-PUSH 02/01/26 11:02 10 ml PRN PRN Administration Flush A&P - Hospitalist Assessment/Plan (1) Acute hypoxemic respiratory failure: (2) COPD exacerbation: (3) Acute UTI: Plan Acute hypoxemic respiratory failure secondary to acute COPD exacerbation Acute UTI -Afebrile, no leukocytosis -Chest x-ray showing no acute pathology -Respiratory panel unremarkable -Continue Rocephin and Azithromycin. Plan to complete 5 days total. -Continue DuoNebs QID -Continue Solumedrol IV as directed -Continue Budesonide BID -Mucinex as directed -PEP as directed -Spirometry -Monitor for fever/leukocytosis home medications resumed Diet: regular DVT ppx:Lovenox Code status: Full Status: inpatient Discussed with patient at bedside. All questions answered. In agreement with theabove plan Encouraged to use spirometry and PEP, ambulate in the room as tolerated. Wean off oxygen as tolerated. Will need walk study on discharge Carole Sage MD Internal Medicine Hospitalist Attending Physician Documented By: Carole Kauffman MD 02/03/2510 01 Signed By: 02/03/25 1119 [facility]03-21-2025 Progress note Author Carole Kauffman [facility] Note Date/Time February 02, 2025 12: 26pm [facility] [address] [place] [address] Hospitalist Progress Note Signed Patient: Nya Jiang MR#: [id number] : 1945 Acct:[id number] Age/Sex: 79 / F Adm Date: Loc: 3T Room: [address] [place] [address] Type: ADM IN Attending Dr: Carole Kauffman MD Copies to: ~ Date of Service: 02/02/2025 Subjective Subjective Narrative: Patient was seen and evaluated at bedside, remained afebrile, no leukocytosis, still requiring about 3 L with saturation 93%. Vitals seem stable. Patient stillhas cough, sputum production. still has severe SOB on exertion. Exam Physical Exam Vital Signs: Temp Pulse Resp BP Pulse Ox O2 Del Method O2 Flow Rate 97.5 F L 80 18 112/64 93 L Nasal Cannula 3 02/02/25 07:39 02/02/25 11:58 02/02/25 11:58 02/02/25 11:58 02/02/25 11:58 02/02/25 11:58 02/02/25 11:58 Narrative: Const General: cooperative HEENT Normal oropharyngeal mucosa without any ulcers or exudates Eyes: Conjunctiva normal Pulmonary Auscultation: diminished breath sounds, still has expiratory wheezes Cardiovascular Rate: normal rate Rhythm: regular rhythm Heart Sounds: S1 normal, S2 normal and no murmurs GI Inspection: non-distended Palpation: soft, not firm and nontender. No rigidity or rebound. Deferred Neuro General: alert, awake and oriented x3. No obvious new focal deficit Musculoskeletal: normal range of motion Extrem General: no cyanosis, no pedal edema Psych Appearance: appropriate affect. Grossly normal Objective Lab Results 02/02/25 05:49 02/02/25 05:49 Microbiology Results Microbiology 02/01/25 12:20 Urine - Clean-Voided Midstream Urine Culture - Preliminary <10,000 colonies/ml mixed bacterial skin contaminants including mixed gram negative bacilli - 1 Day 02/01/25 14:25 Nasopharyngeal Respiratory Panel (PCR) - Final Meds Allergies and Active Meds Allergies cefdinir Allergy (Unknown, Verified 02/01/25 11:04) Unknown Reaction nylon Allergy (Unknown, Verified 02/01/25 11:04) Swelling penicillin G benzathine Allergy (Unknown, Verified 02/01/25 11:04) Unknown Reaction venlafaxine (Effexor) Allergy (Unknown, Verified 02/01/25 11:04) Unknown Reaction Penicillins Allergy (Verified 02/01/25 11:04) Rash Active Meds: Active Medications Generic Name Dose Route Start Last Admin Trade Name Freq PRN Reason Stop Dose Admin Acetaminophen 650 mg 02/01/25 14:03 Acetaminophen 325 Mg Tablet PO 02/01/26 14:02 Q6HR PRN Pain Scale 1 - 3 or fever Albuterol 2.5 mg 02/01/25 14:03 Albuterol Neb 2.5 Mg/3 Ml Vial.Neb INHALATION 02/01/26 14:02 Q3H PRN Cough/Wheeze Albuterol/Ipratropium 3 ml 02/01/25 16:00 02/02/25 09:38 Ipratropium/Albuterol 0.5-3 Mg 3 Ml Ampul.Neb INHALATION 02/01/26 15:59 3 ml QID.RESP [place] Administration Amlodipine Besylate 5 mg 02/01/25 16:30 02/02/25 08:32 Amlodipine 5 Mg Tablet PO 02/01/26 16:29 5 mg DAILY [place] Administration Atorvastatin Calcium 80 mg 02/01/25 22:00 02/01/25 21:12 Atorvastatin 80 Mg Tablet PO 02/01/26 21:59 Not Given QHS LOIUS Benzonatate 200 mg 02/01/25 16:15 Benzonatate 100 Mg Capsule PO 02/01/26 16:14 TID PRN Cough Budesonide 0.5 mg 02/01/25 21:00 02/02/25 05:53 Budesonide 0.5 Mg/2 Ml Ampul.Neb INHALATION 02/01/26 20:59 0.5 mg BID [facility] Administration Enoxaparin Sodium 40 mg 02/02/25 10:00 02/02/25 09:28 Enoxaparin 40 Mg/0.4 Ml Syringe SUBCUT 02/02/26 09:59 40 mg DAILY@10 [place] Administration Guaifenesin/Dextromethorphan 1 tab 02/01/25 21:00 02/02/25 08:31 Guaif/Dextromethorphan 600-30mg Tab.Er.12h PO 02/01/26 20:59 1 tab Q12HR [place] Administration Hydralazine HCl 10 mg 02/01/25 14:03 Hydralazine 20 Mg/Ml Vial IV-PUSH 02/01/26 14:02 Q4H PRN Hypertension Ceftriaxone Sodium 1 gm in 50 mls @ 100 mls/hr 02/02/25 13:00 02/02/25 12:00 Rocephin IV 100 mls/hr Q24H [place] Administration Azithromycin 500 mg in 250 mls @ 250 mls/hr 02/01/25 15:00 02/01/25 16:42 Zithromax IV 250 mls/hr Q24H [place] Administration Losartan Potassium 100 mg 02/02/25 09:00 02/02/25 08:31 Losartan 50 Mg Tablet PO 02/02/26 08:59 100 mg DAILY [facility] Administration Methylprednisolone Sodium Succinate 40 mg 02/01/25 20:30 02/02/25 08:32 Methylprednisolone Sod Succ/Pf 40 Mg/Ml (1ml) Vial IV-PUSH 02/02/26 20:29 40 mg Q12H [place] Administration Morphine Sulfate 2 mg 02/01/25 14:03 02/01/25 20:26 Morphine Sulfate 2 Mg/Ml Vial IV-PUSH 2 mg Q4H PRN Administration Pain Scale 8 - 10 Prochlorperazine Edisylate 5 mg 02/01/25 14:03 Prochlorperazine Edisylate 10 Mg/2 Ml Vial IV-PUSH 02/01/26 14:02 Q4H PRN Nausea And Vomiting Sodium Chloride 0 ml 02/01/25 11:03 02/01/25 20:27 Sodium Chloride 0.9 % 10 Ml Syringe IV-PUSH 02/01/26 11:02 10 ml PRN PRN Administration Flush A&P - Hospitalist Assessment/Plan (1) Acute hypoxemic respiratory failure: (2) COPD exacerbation: (3) Acute UTI: Plan Acute hypoxemic respiratory failure secondary to acute COPD exacerbation Acute UTI -Afebrile, no leukocytosis -Chest x-ray showing no acute pathology -Respiratory panel unremarkable -Continue Rocephin and Azithromycin -Continue DuoNebs QID -Continue Solumedrol IV as directed -Continue Budesonide BID -Mucinex as directed -PEP as directed -Spirometry -Monitor for fever/leukocytosis home medications resumed Diet: regular DVT ppx:Lovenox Code status: Full Status: inpatient Discussed with patient at bedside. All questions answered. In agreement with theabove plan Carole Sage MD Internal Medicine Hospitalist Attending Physician Documented By: Carole Kauffman MD 02/02/25 12 22 Signed By: <Electronically signed by Carole Kauffman MD> 02/02/25 1226 [facility] Work Phone: 1(367) 549-989803-21-2025 [place] [address] Hospitalist Progress Note Signed Patient: Nya Jiang MR#: [id number] : 1945 Acct:[id number] Age/Sex: 79 / F Adm Date: 5 Loc: 3T Room: [address] [place] [address] Type: ADM IN Attending Dr: Carole Kauffman MD Copies to: ~ Date of Service: 02/02/2025 Subjective Subjective Narrative: Patient was seen and evaluated at bedside, remained afebrile, no leukocytosis, still requiring about 3 L with saturation 93%. Vitals seem stable. Patient stillhas cough, sputum production. still has severe SOB on exertion. Exam Physical Exam Vital Signs: Temp Pulse Resp BP Pulse Ox O2 Del Method O2 Flow Rate 97.5 F L 80 18 112/64 93 L Nasal Cannula 3 02/02/25 07:39 02/02/25 11:58 02/02/25 11:58 02/02/25 11:58 02/02/25 11:58 02/02/25 11:58 02/02/25 11:58 Narrative: Const General: cooperative HEENT Normal oropharyngeal mucosa without any ulcers or exudates Eyes: Conjunctiva normal Pulmonary Auscultation: diminished breath sounds, still has expiratory wheezes Cardiovascular Rate: normal rate Rhythm: regular rhythm Heart Sounds: S1 normal, S2 normal and no murmurs GI Inspection: non-distended Palpation: soft, not firm and nontender. No rigidity or rebound. Deferred Neuro General: alert, awake and oriented x3. No obvious new focal deficit Musculoskeletal: normal range of motion Extrem General: no cyanosis, no pedal edema Psych Appearance: appropriate affect. Grossly normal Objective Lab Results 02/02/25 05:49 02/02/25 05:49 Microbiology Results Microbiology 02/01/25 12:20 Urine - Clean-Voided Midstream Urine Culture - Preliminary <10,000 colonies/ml mixed bacterial skin contaminants including mixed gram negative bacilli - 1 Day 02/01/25 14:25 Nasopharyngeal Respiratory Panel (PCR) - Final Meds Allergies and Active Meds Allergies cefdinir Allergy (Unknown, Verified 02/01/25 11:04) Unknown Reaction nylon Allergy (Unknown, Verified 02/01/25 11:04) Swelling penicillin G benzathine Allergy (Unknown, Verified 02/01/25 11:04) Unknown Reaction venlafaxine (Effexor) Allergy (Unknown, Verified 02/01/25 11:04) Unknown Reaction Penicillins Allergy (Verified 02/01/25 11:04) Rash Active Meds: Active Medications Generic Name Dose Route Start Last Admin Trade Name Freq PRN Reason Stop Dose Admin Acetaminophen 650 mg 02/01/25 14:03 Acetaminophen 325 Mg Tablet PO 02/01/26 14:02 Q6HR PRN Pain Scale 1 - 3 or fever Albuterol 2.5 mg 02/01/25 14:03 Albuterol Neb 2.5 Mg/3 Ml Vial.Neb INHALATION 02/01/26 14:02 Q3H PRN Cough/Wheeze Albuterol/Ipratropium 3 ml 02/01/25 16:00 02/02/25 09:38 Ipratropium/Albuterol 0.5-3 Mg 3 Ml Ampul.Neb INHALATION 02/01/26 15:59 3 ml QID.RESP [place] Administration Amlodipine Besylate 5 mg 02/01/25 16:30 02/02/25 08:32 Amlodipine 5 Mg Tablet PO 02/01/26 16:29 5 mg DAILY [facility] Administration Atorvastatin Calcium 80 mg 02/01/25 22:00 02/01/25 21:12 Atorvastatin 80 Mg Tablet PO 02/01/26 21:59 Not Given QHS [facility] Benzonatate 200 mg 02/01/25 16:15 Benzonatate 100 Mg Capsule PO 02/01/26 16:14 TID PRN Cough Budesonide 0.5 mg 02/01/25 21:00 02/02/25 05:53 Budesonide 0.5 Mg/2 Ml Ampul.Neb INHALATION 02/01/26 20:59 0.5 mg BID [facility] Administration Enoxaparin Sodium 40 mg 02/02/25 10:00 02/02/25 09:28 Enoxaparin 40 Mg/0.4 Ml Syringe SUBCUT 02/02/26 09:59 40 mg DAILY@10 [facility] Administration Guaifenesin/Dextromethorphan 1 tab 02/01/25 21:00 02/02/25 08:31 Guaif/Dextromethorphan 600-30mg Tab.Er.12h PO 02/01/26 20:59 1 tab Q12HR [facility] Administration Hydralazine HCl 10 mg 02/01/25 14:03 Hydralazine 20 Mg/Ml Vial IV-PUSH 02/01/26 14:02 Q4H PRN Hypertension Ceftriaxone Sodium 1 gm in 50 mls @ 100 mls/hr 02/02/25 13:00 02/02/25 12:00 Rocephin IV 100 mls/hr Q24H [facility] Administration Azithromycin 500 mg in 250 mls @ 250 mls/hr 02/01/25 15:00 02/01/25 16:42 Zithromax IV 250 mls/hr Q24H [facility] Administration Losartan Potassium 100 mg 02/02/25 09:00 02/02/25 08:31 Losartan 50 Mg Tablet PO 02/02/26 08:59 100 mg DAILY [facility] Administration Methylprednisolone Sodium Succinate 40 mg 02/01/25 20:30 02/02/25 08:32 Methylprednisolone Sod Succ/Pf 40 Mg/Ml (1ml) Vial IV-PUSH 02/02/26 20:29 40 mg Q12H [facility] Administration Morphine Sulfate 2 mg 02/01/25 14:03 02/01/25 20:26 Morphine Sulfate 2 Mg/Ml Vial IV-PUSH 2 mg Q4H PRN Administration Pain Scale 8 - 10 Prochlorperazine Edisylate 5 mg 02/01/25 14:03 Prochlorperazine Edisylate 10 Mg/2 Ml Vial IV-PUSH 02/01/26 14:02 Q4H PRN Nausea And Vomiting Sodium Chloride 0 ml 02/01/25 11:03 02/01/25 20:27 Sodium Chloride 0.9 % 10 Ml Syringe IV-PUSH 02/01/26 11:02 10 ml PRN PRN Administration Flush A&P - Hospitalist Assessment/Plan (1) Acute hypoxemic respiratory failure: (2) COPD exacerbation: (3) Acute UTI: Plan Acute hypoxemic respiratory failure secondary to acute COPD exacerbation Acute UTI -Afebrile, no leukocytosis -Chest x-ray showing no acute pathology -Respiratory panel unremarkable -Continue Rocephin and Azithromycin -Continue DuoNebs QID -Continue Solumedrol IV as directed -Continue Budesonide BID -Mucinex as directed -PEP as directed -Spirometry -Monitor for fever/leukocytosis home medications resumed Diet: regular DVT ppx:Lovenox Code status: Full Status: inpatient Discussed with patient at bedside. All questions answered. In agreement with theabove plan Carole Sage MD Internal Medicine Hospitalist Attending Physician Documented By: Carole Kauffman MD 02/02/2511 05 Signed By: 02/02/25 1226 [facility]03-20-2025 History and physical note Author Carole Kauffman [facility] Note Date/Time February 01, 2025 4:1 7pm [facility] [address] [place] [address] Hospitalist H&P Signed Patient: Nya Jiang MR#: [id number] : 1945 Acct:[id number] Age/Sex: 79 / F Adm Date: 5 Loc: Room: [address] [place] [address] Type: ADM IN Attending Dr: Carole Kauffman MD Copies to: MD Carole Morales MD~ HPI DATE OF EXAMINATION: 02/01/25 CHIEF COMPLAINT: SOB HISTORY OF PRESENT ILLNESS: Patient is an 79 year old female with medical hx as listed below came in with worsening SOB, R knee pain. She has been complaining of SOB, waking up at night short of breath, associated with cough and sputum production, yellow in color. Pt has hx of smoking, quit many years back. denies fever, chills, nausea, vomiting. Denies any fall, injuries. Here in ER, she is afebrile, no leukocytosis. CXR with no obvious infiltrates. Xrays with no acute pathology. Patient was noted to be hypoxic in ER down to 87% on RA, noted with positive UA.Given IV Rocephin, IV zithromax ordered. Decision was made to admit her for further evaluation and management. Patient tells me that she had televisit withP and thought to have flu and given Tamiflu and zpack, she took for a day or two with no improvement. Review of Systems Review of Systems All other systems reviewed & are negative unless noted below or in HPI Review of systems: 10 systems are reviewed and are negative except as mentioned elsewhere in the documentation [facility] Medical History Right upper quadrant pain (12/10/17) Pain in right foot Pain in left wrist Pain in left toe(s) Other specified anxiety disorders Other fatigue Other amnesia Neuralgia and neuritis, unspecified (01/11/19) Memory change Low back pain, unspecified Headache, unspecified Frontal headache Essential (primary) hypertension Epigastric pain Elevated blood-pressure reading, without diagnosis of hypertension Disorientation, unspecified Depression Cutaneous abscess of left foot COVID-19 Chronic obstructive pulmonary disease with (acute) exacerbation (05/08/19) Chronic idiopathic constipation Chronic fatigue Cervicalgia Cervical pain Cardiac murmur, unspecified Bloating Anxiety disorder, unspecified Anemia Acute pancreatitis without necrosis or infection, unspecified Abnormal brain MRI GERD (gastroesophageal reflux disease) Problem List clean-up per request of Phys. EHR Cmte Hyperlipidemia Problem List clean-up per request of Phys. EHR Cmte HTN (hypertension) Problem List clean-up per request of Phys. EHR Cmte Surgical History History of hysterectomy Hx of breast reduction, elective History of hernia surgery Problem List clean-up per request of Phys. EHR Cmte History of bilateral breast reduction surgery Problem List clean-up per request of Phys. EHR Cmte History of neck surgery Problem List clean-up per request of Phys. EHR Cmte Family History Brother Father Cancer Legacy FamHx Problem: Diagnosed with Cancer Family/Other Legacy FamHx Problem: 1 BROTHER :3 SISTERS Mother Malignant neoplasm of breast Sister Social History Smoking Status: Current every day smoker Tobacco Type: cigarettes Substance Use Type: None Meds Medications and Allergies Allergies cefdinir Allergy (Unknown, Verified 02/01/25 11:04) Unknown Reaction nylon Allergy (Unknown, Verified 02/01/25 11:04) Swelling penicillin G benzathine Allergy (Unknown, Verified 02/01/25 11:04) Unknown Reaction venlafaxine (Effexor) Allergy (Unknown, Verified 02/01/25 11:04) Unknown Reaction Penicillins Allergy (Verified 02/01/25 11:04) Rash Home Medications atorvastatin 80 mg tablet 80 mg PO QHS 01/20/25 [History Confirmed 02/01/25] losartan 100 mg tablet 100 mg PO DAILY 01/20/25 [History Confirmed 02/01/25] azithromycin 250 mg tablet See Rx Instructions PO .COMPLEX #6 tabs 01/25/25 [Rx Confirmed 02/01/25] oseltamivir 75 mg capsule (Tamiflu) 75 mg PO BID 5 days #10 caps 01/26/25 [Rx Confirmed 02/01/25] Exam Physical Exam Vital Signs: Temp Pulse Resp BP Pulse Ox O2 Del Method O2 Flow Rate 98.5 F 87 20 198/108 H 93 L Nasal Cannula 3 02/01/25 11:04 02/01/25 13:00 02/01/25 13:00 02/01/25 13:00 02/01/25 13:55 02/01/25 13:55 02/01/25 13:55 Narrative: Const General: cooperative HEENT Normal oropharyngeal mucosa without any ulcers or exudates Eyes: Conjunctiva normal Pulmonary Auscultation: diminished breath sounds, expiratory wheezes, tachypneic Cardiovascular Rate: normal rate Rhythm: regular rhythm Heart Sounds: S1 normal, S2 normal and no murmurs GI Inspection: non-distended Palpation: soft, not firm and nontender. No rigidity or rebound. Deferred Neuro General: alert, awake and oriented x3. No obvious new focal deficit Musculoskeletal: normal range of motion Extrem General: no cyanosis, no pedal edema Psych Appearance: appropriate affect. Grossly normal Results - Hospitalist H&P Lab Results Labs: Laboratory Last Values Corrected WBC 11.1 X10E3/uL (3.8-11.6) 02/01/25 11:40 Uncorrected WBC Count 11.1 x10E3/uL (3.8-11.6) 02/01/25 11:40 RBC 5.06 x10E6/uL (3.60-5.00) H 02/01/25 11:40 Hgb 14.6 g/dL (11.8-15.4) 02/01/25 11:40 Hct 41.8 % (34.0-46.4) 02/01/25 11:40 MCV 82.7 fl (80-100) 02/01/25 11:40 MCH 28.9 pg (24.7-34.3) 02/01/25 11:40 MCHC 34.9 g/dL (32.0-35.0) 02/01/25 11:40 RDW 13.1 % (11.9-15.3) 02/01/25 11:40 Plt Count 382 x10E3/uL (150-450) 02/01/25 11:40 MPV 6.3 fl (6.3-10.7) 02/01/25 11:40 Neut % (Auto) 73.4 % (.) 02/01/25 11:40 Lymph % (Auto) 16.6 % (.) 02/01/25 11:40 B[place] % (Auto) 7.0 % (.) 02/01/25 11:40 Eos % (Auto) 1.3 % (.) 02/01/25 11:40 Baso % (Auto) 1.7 % (.) 02/01/25 11:40 Nucleat RBC Rel Count 0.1 /100 WBC (0-0.5) 02/01/25 11:40 Neut # (Auto) 8.1 x10E3/uL (1.8-7.7) H 02/01/25 11:40 Lymph # (Auto) 1.8 x10E3/uL (1.00-4.8) 02/01/25 11:40 Bucks # (Auto) 0.8 x10E3/uL (0.0-0.8) 02/01/25 11:40 Eos # (Auto) 0.1 x10E3/uL (0.0-0.45) 02/01/25 11:40 Baso # (Auto) 0.2 x10E3/uL (0.0-0.2) 02/01/25 11:40 Monocyte Dist Width 17.49 % (0.00-20.00) 02/01/25 11:40 PT 11.7 Seconds (9.0-12.9) 02/01/25 11:40 INR 1.0 02/01/25 11:40 D-Dimer Quant (PE/DVT) 220 ng/mL (0-243) 02/01/25 11:40 PHA Creatinine Clear 53.67 02/01/25 11:40 Sodium 138 mmol/L (136-145) 02/01/25 11:40 Potassium 3.8 mmol/L (3.5-5.1) 02/01/25 11:40 Chloride 101 mmol/L (98-107) 02/01/25 11:40 Carbon Dioxide 30.7 mmol/L (21.0-31.0) 02/01/25 11:40 Anion Gap 10.1 mEq/L (6.0-15.0) 02/01/25 11:40 BUN 7 mg/dL (7-25) 02/01/25 11:40 Creatinine 0.63 mg/dL (0.60-1.20) 02/01/25 11:40 Est GFR (CKD-EPI) > 60.0 mL/Min 02/01/25 11:40 Glucose 127 mg/dL (70-100) H 02/01/25 11:40 Calcium 9.3 mg/dL (8.6-10.3) 02/01/25 11:40 Total Creatine Kinase 26 U/L (30-223) L 02/01/25 11:40 Troponin I High Sens 9 ng/L (0-15) 02/01/25 11:40 B-Natriuretic Peptide 84.0 pg/mL (5-100) 02/01/25 11:40 Urine Color Yellow (Yellow) 02/01/25 12:20 Urine Appearance Cloudy (Clear) A 02/01/25 12:20 Urine pH 6.5 (5.0-9.0) 02/01/25 12:20 Ur Specific [place] 1.014 (1.001-1.030) 02/01/25 12:20 Urine Protein 70 mg/dL (Negative) H 02/01/25 12:20 Urine Glucose (UA) Normal mg/dL (Normal) 02/01/25 12:20 Urine Ketones Negative (Negative) 02/01/25 12:20 Urine Occult Blood Negative (Negative) 02/01/25 12:20 Urine Nitrite Negative (Negative) 02/01/25 12:20 Urine Bilirubin Negative (Negative) 02/01/25 12:20 Urine Urobilinogen Normal mg/dL (Normal) 02/01/25 12:20 Ur Leukocyte Esterase 4+ (Negative) H 02/01/25 12:20 Urine RBC 5-9 /HPF (0-4) H 02/01/25 12:20 Urine WBC 50-100 /HPF (0-4) H 02/01/25 12:20 Urine WBC Clumps Few /LPF (None Seen) H 02/01/25 12:20 Ur Squamous Epith Cells 1-2 /HPF (0-2) 02/01/25 12:20 Urine Bacteria Rare /HPF (None Seen) 02/01/25 12:20 Hyaline Casts None /LPF (0-8) 02/01/25 12:20 Other Casts 1-2 /LPF (None Seen) H 02/01/25 12:20 Urine Mucus Rare /LPF 02/01/25 12:20 Assessment & Plan Assessment/Plan (1) Acute hypoxemic respiratory failure: (2) COPD exacerbation: (3) Acute UTI: Plan Acute hypoxemic respiratory failure secondary to acute COPD exacerbation Acute UTI -Afebrile, no leukocytosis -Chest x-ray showing no acute pathology -Respiratory panel unremarkable -Start Rocephin and Azithromycin -Start DuoNebs QID -Start Solumedrol IV as directed -Mag sulfate 2 g IV -Start Budesonide BID -Mucinex as directed -PEP as directed -Sputum cx -Monitor for fever/leukocytosis home medications resumed Diet: regular DVT ppx:Lovenox Code status: Full Status: inpatient Discussed with patient and family at bedside. All questions answered. In agreement with the above plan Carole Sage MD Internal Medicine Hospitalist Attending Physician IP vs OBS Justification Based on differential dx, clinical care plan, and risk of adverse events, if untreated, in my clinical judgement this patient requires an acute care setting as: INPATIENT because of an expectation of an over 2 midnight stay. Estimated length of stay (# of days): 3 Documented By: Carole Kauffman MD 02/01/25 14 11 Signed By: <Electronically signed by Carole Kauffman MD> 02/01/25 9137 [facility] Work Phone: 1(510) 989-985303-20-2025 [place] [address] Hospitalist H&P Signed Patient: Nya Jiang MR#: [id number] : 1945 Acct:[id number] Age/Sex: 79 / F Adm Date: 5 Loc: 3T Room: [address] [place] [address] Type: ADM IN Attending Dr: Carole Kauffman MD Copies to: MD Carole Morales MD~ HPI DATE OF EXAMINATION: 02/01/25 CHIEF COMPLAINT: SOB HISTORY OF PRESENT ILLNESS: Patient is an 79 year old female with medical hx as listed below came in with worsening SOB, R kneepain. She has been complaining of SOB, waking up at night short of breath, associated with cough and sputum production, yellow in color. Pt has hx of smoking, quit many years back. denies fever, chills, nausea, vomiting. Denies any fall, injuries. Here in ER, she is afebrile, no leukocytosis. CXR with no obvious infiltrates. Xrays with no acute pathology. Patient was noted to be hypoxic in ER down to 87% on RA, noted with positive UA.Given IV Rocephin, IV zithromax ordered. Decision was made toadmit her for further evaluation and management. Patient tells me that she had televisit withPCP and thought to have flu and given Tamiflu and zpack, she took for a day or two with no improvement. Review of Systems Review of Systems All other systems reviewed & are negative unless noted below or in HPI Review of systems: 10 systems are reviewed and are negative except as mentioned elsewhere in the documentation [facility] Medical History Right upper quadrant pain (12/10/17) Pain in right foot Pain in left wrist Pain in left toe(s) Other specified anxiety disorders Other fatigue Other amnesia Neuralgia and neuritis, unspecified (01/11/19) Memory change Low back pain, unspecified Headache, unspecified Frontal headache Essential (primary) hypertension Epigastric pain Elevated blood-pressure reading, without diagnosis of hypertension Disorientation, unspecified Depression Cutaneous abscess of left foot COVID-19 Chronic obstructive pulmonary disease with (acute) exacerbation (05/08/19) Chronic idiopathic constipation Chronic fatigue Cervicalgia Cervical pain Cardiac murmur, unspecified Bloating Anxiety disorder, unspecified Anemia Acute pancreatitis without necrosis or infection, unspecified Abnormal brain MRI GERD (gastroesophageal reflux disease) Problem List clean-up per request of Phys. EHR Cmte Hyperlipidemia Problem List clean-up per request of Phys. EHR Cmte HTN (hypertension) Problem List clean-up per request of Phys. EHR Cmte Surgical History History of hysterectomy Hx of breast reduction, elective History of hernia surgery Problem List clean-up per request of Phys. EHR Cmte History of bilateral breast reduction surgery Problem List clean-up per request of Phys. EHR Cmte History of neck surgery Problem List clean-up per request of Phys. EHR Cmte Family History Brother Father Cancer Legacy FamHx Problem: Diagnosed with Cancer Family/Other Legacy FamHx Problem: 1 BROTHER :3 SISTERS Mother Malignant neoplasm of breast Sister Social History Smoking Status: Current every day smoker Tobacco Type: cigarettes Substance Use Type: None Meds Medications and Allergies Allergies cefdinir Allergy (Unknown, Verified 02/01/25 11:04) Unknown Reaction nylon Allergy (Unknown, Verified 02/01/25 11:04) Swelling penicillin G benzathine Allergy (Unknown, Verified 02/01/25 11:04) Unknown Reaction venlafaxine (Effexor) Allergy (Unknown, Verified 02/01/25 11:04) Unknown Reaction Penicillins Allergy (Verified 02/01/25 11:04) Rash Home Medications atorvastatin 80 mg tablet 80 mg PO QHS 01/20/25 [History Confirmed 02/01/25] losartan 100 mg tablet 100 mg PO DAILY 01/20/25 [History Confirmed 02/01/25] azithromycin 250 mg tablet See Rx Instructions PO .COMPLEX #6 tabs 01/25/25 [Rx Confirmed 02/01/25] oseltamivir 75 mg capsule (Tamiflu) 75 mg PO BID 5 days #10 caps 01/26/25 [Rx Confirmed 02/01/25] Exam Physical Exam Vital Signs: Temp Pulse Resp BP Pulse Ox O2 Del Method O2 Flow Rate 98.5 F 87 20 198/108 H 93 L Nasal Cannula 3 02/01/25 11:04 02/01/25 13:00 02/01/25 13:00 02/01/25 13:00 02/01/25 13:55 02/01/25 13:55 02/01/25 13:55 Narrative: Const General: cooperative HEENT Normal oropharyngeal mucosa without any ulcers or exudates Eyes: Conjunctiva normal Pulmonary Auscultation: diminished breath sounds, expiratory wheezes, tachypneic Cardiovascular Rate: normal rate Rhythm: regular rhythm Heart Sounds: S1 normal, S2 normal and no murmurs GI Inspection: non-distended Palpation: soft, not firm and nontender. No rigidity or rebound. Deferred Neuro General: alert, awake and oriented x3. No obvious new focal deficit Musculoskeletal: normal range of motion Extrem General: no cyanosis, no pedal edema Psych Appearance: appropriate affect. Grossly normal Results - Hospitalist H&P Lab Results Labs: Laboratory Last Values Corrected WBC 11.1 X10E3/uL (3.8-11.6) 02/01/25 11:40 Uncorrected WBC Count 11.1 x10E3/uL (3.8-11.6) 02/01/25 11:40 RBC 5.06 x10E6/uL (3.60-5.00) H 02/01/25 11:40 Hgb 14.6 g/dL (11.8-15.4) 02/01/25 11:40 Hct 41.8 % (34.0-46.4) 02/01/25 11:40 MCV 82.7 fl (80-100) 02/01/25 11:40 MCH 28.9 pg (24.7-34.3) 02/01/25 11:40 MCHC 34.9 g/dL (32.0-35.0) 02/01/25 11:40 RDW 13.1 % (11.9-15.3) 02/01/25 11:40 Plt Count 382 x10E3/uL (150-450) 02/01/25 11:40 MPV 6.3 fl (6.3-10.7) 02/01/25 11:40 Neut % (Auto) 73.4 % (.) 02/01/25 11:40 Lymph % (Auto) 16.6 % (.) 02/01/25 11:40 Bucks % (Auto) 7.0 % (.) 02/01/25 11:40 Eos % (Auto) 1.3 % (.) 02/01/25 11:40 Baso % (Auto) 1.7 % (.) 02/01/25 11:40 Nucleat RBC Rel Count 0.1 /100 WBC (0-0.5) 02/01/25 11:40 Neut # (Auto) 8.1 x10E3/uL (1.8-7.7) H 02/01/25 11:40 Lymph # (Auto) 1.8 x10E3/uL (1.00-4.8) 02/01/25 11:40 Bucks # (Auto) 0.8 x10E3/uL (0.0-0.8) 02/01/25 11:40 Eos # (Auto) 0.1 x10E3/uL (0.0-0.45) 02/01/25 11:40 Baso # (Auto) 0.2 x10E3/uL (0.0-0.2) 02/01/25 11:40 Monocyte Dist Width 17.49 % (0.00-20.00) 02/01/25 11:40 PT 11.7 Seconds (9.0-12.9) 02/01/25 11:40 INR 1.0 02/01/25 11:40 D-Dimer Quant (PE/DVT) 220 ng/mL (0-243) 02/01/25 11:40 PHA Creatinine Clear 53.67 02/01/25 11:40 Sodium 138 mmol/L (136-145) 02/01/25 11:40 Potassium 3.8 mmol/L (3.5-5.1) 02/01/25 11:40 Chloride 101 mmol/L (98-107) 02/01/25 11:40 Carbon Dioxide 30.7 mmol/L (21.0-31.0) 02/01/25 11:40 Anion Gap 10.1 mEq/L (6.0-15.0) 02/01/25 11:40 BUN 7 mg/dL (7-25) 02/01/25 11:40 Creatinine 0.63 mg/dL (0.60-1.20) 02/01/25 11:40 Est GFR (CKD-EPI) > 60.0 mL/Min 02/01/25 11:40 Glucose 127 mg/dL (70-100) H 02/01/25 11:40 Calcium 9.3 mg/dL (8.6-10.3) 02/01/25 11:40 Total Creatine Kinase 26 U/L (30-223) L 02/01/25 11:40 Troponin I High Sens 9 ng/L (0-15) 02/01/25 11:40 B-Natriuretic Peptide 84.0 pg/mL (5-100) 02/01/25 11:40 Urine Color Yellow (Yellow) 02/01/25 12:20 Urine Appearance Cloudy (Clear) A 02/01/25 12:20 Urine pH 6.5 (5.0-9.0) 02/01/25 12:20 Ur Specific [place] 1.014 (1.001-1.030) 02/01/25 12:20 Urine Protein 70 mg/dL (Negative) H 02/01/25 12:20 Urine Glucose (UA) Normal mg/dL (Normal) 02/01/25 12:20 Urine Ketones Negative (Negative) 02/01/25 12:20 Urine Occult Blood Negative (Negative) 02/01/25 12:20 Urine Nitrite Negative (Negative) 02/01/25 12:20 Urine Bilirubin Negative (Negative) 02/01/25 12:20 Urine Urobilinogen Normal mg/dL (Normal) 02/01/25 12:20 Ur Leukocyte Esterase 4+ (Negative) H 02/01/25 12:20 Urine RBC 5-9 /HPF (0-4) H 02/01/25 12:20 Urine WBC 50-100 /HPF (0-4) H 02/01/25 12:20 Urine WBC Clumps Few /LPF (None Seen) H 02/01/25 12:20 Ur Squamous Epith Cells 1-2 /HPF (0-2) 02/01/25 12:20 Urine Bacteria Rare /HPF (None Seen) 02/01/25 12:20 Hyaline Casts None /LPF (0-8) 02/01/25 12:20 Other Casts 1-2 /LPF (None Seen) H 02/01/25 12:20 Urine Mucus Rare /LPF 02/01/25 12:20 Assessment & Plan Assessment/Plan (1) Acute hypoxemic respiratory failure: (2) COPD exacerbation: (3) Acute UTI: Plan Acute hypoxemic respiratory failure secondary to acute COPD exacerbation Acute UTI -Afebrile, no leukocytosis -Chest x-ray showing no acute pathology -Respiratory panel unremarkable -Start Rocephin and Azithromycin -Start DuoNebs QID -Start Solumedrol IV as directed -Mag sulfate 2 g IV -Start Budesonide BID -Mucinex as directed -PEP as directed -Sputum cx -Monitor for fever/leukocytosis home medications resumed Diet: regular DVT ppx:Lovenox Code status: Full Status: inpatient Discussed with patient and family at bedside. All questions answered. In agreement with the above plan Carole Sage MD Internal Medicine Hospitalist Attending Physician IP vs OBS Justification Based on differential dx, clinical care plan, and risk of adverse events, if untreated, in my clinical judgement this patient requires an acute care setting as: INPATIENT because of an expectation ofan over 2 midnight stay. Estimated length of stay (# of days): 3 Documented By: Carole Kauffman MD 02/01/25 14 11 Signed By: 02/01/25 1617 [facility]03-08-2025 Evaluation note* Diagnosis Onset Date Resolution Status Admit Date Abdominal pain acute January 20, 2025 12:31pm Bronchitis acute January 25 1:11pm Vaginitis acute January 25 1:11pm Acute hypoxemic respiratory failure acute February 01, 2025 2:03pm Acute UTI deleted February 01 2:03pm COPD exacerbation acute January 142024 2:03pm Hypoxia acute February 01 2:03pm Wheezing deleted February 01 2:03pm Acute hypoxemic respiratory failure acute February 08, 2025 2:14pm COPD exacerbation acute January 142024 2:14pm Dyspnea on exertion acute February 08, 2025 2:14pm Essential (primary) hypertension acute February 08, 2025 2:14pm Hypertensive urgency acute 2024 2:14pm Hypoxia acute February 08 2:14pm Smoker within last 12 months acute February 08, 2025 2:14pm Acute UTI deleted February 08 2:14pm [facility] Work Phone: 1(283) 709-429401-23-2025 Evaluation note* Diagnosis Onset Date Resolution Status Admit Date Bronchitis acute December 07, 2024 9:16am [facility] Work Phone: 1(454) 809-454901-23-2025 Evaluation note* Diagnosis Onset Date Resolution Status Admit Date Bronchitis acute December 07, 2024 9:16am Abdominal pain acute January 20, 2025 12:31pm [facility] Work Phone: 1(130) 109-550501-23-2025 Evaluation note* Diagnosis Onset Date Resolution Status Admit Date Bronchitis acute December 07, 2024 9:16am Abdominal pain acute January 20, 2025 12:31pm Bronchitis acute January 25 1:11pm Vaginitis acute January 25 1:11pm Acute hypoxemic respiratory failure acute February 01, 2025 2:03pm Acute UTI acute February 01 2:03pm COPD exacerbation acute January 142024 2:03pm [facility] Work Phone: 1(244) 435-806001-23-2025 Evaluation note* Diagnosis Onset Date Resolution Status Admit Date Bronchitis acute December 07, 2024 9:16am Abdominal pain acute January 20, 2025 12:31pm Bronchitis acute January 25 1:11pm Vaginitis acute January 25 1:11pm Acute hypoxemic respiratory failure acute February 01, 2025 2:03pm Acute UTI acute February 01 2:03pm COPD exacerbation acute January 142024 2:03pm Hypoxia acute February 01 2:03pm Wheezing acute February 01 2:03pm [facility] Work Phone: 1(800) 417-405401-23-2025 Evaluation note* Diagnosis Onset Date Resolution Status Admit Date Bronchitis acute December 07, 2024 9:16am Abdominal pain acute January 20, 2025 12:31pm Bronchitis acute January 25 1:11pm Vaginitis acute January 25 1:11pm Acute hypoxemic respiratory failure acute February 01, 2025 2:03pm Acute UTI acute February 01 2:03pm COPD exacerbation acute January 142024 2:03pm Hypoxia acute February 01 2:03pm Wheezing acute February 01 2:03pm Acute hypoxemic respiratory failure acute February 08, 2025 2:14pm Acute UTI acute February 08 2:14pm COPD exacerbation acute January 142024 2:14pm Essential (primary) hypertension acute February 08, 2025 2:14pm Hypertensive urgency acute 2024 2:14pm Hypoxia acute February 08 2:14pm Smoker within last 12 months acute February 08, 2025 2:14pm [facility] Work Phone: 1(258) 106-674805-09-2024 History of Present illness Narrative* KACI Becerra - 03/23/2024 8:45 AM EDT [facility] [address] [facility] [place] [address] Patient: Nya Jiang Sex: female : 1945 Age: 78 y.o. PCP: PARAS GALLARDO MD 03/23/2024 Nya Jiang is here [...] and biofreeze with some relief. PT at [facility] (Dec 2022), HEP from PT currently. The treatment provided mild relief. The effect of pain on patient's ADLS: Minimal Impairment. Past Medical History: Diagnosis Date Chronic pain disorder GERD (gastroesophageal reflux disease) Hyperlipidemia Hypertension Joint pain Past Surgical History: Procedure Laterality Date HERNIA REPAIR HYSTERECTOMY INJECTION BLOCK NERVE MEDIAL BRANCH: bilat C 2/3 3/4 Bilateral 03/12/2023 Performed by Kamar Koroma MD at [facility] INJECTION BLOCK NERVE MEDIAL BRANCH: bilat C 2/3, 3/4 Bilateral 03/03/2024 Performed by Kamar Koroma MD at [facility] NECK SURGERY 2012 Allergies Allergen [...] Interpersonal Safety: Unknown (01/06/2024) Received from [facility] Safety & Environment Fear of Current or [...] KACI Becerra 03/23/24 [address] HospitalPencil You In [facility] [phone] History of Present illness Narrative* KACI Becerra - 02/17/2024 10:45 AM EDT [facility] [address] [place] [address] Patient: Nya Jiang Sex: female : 1945 Age: 78 y.o. PCP: PARAS GALLARDO MD 02/17/2024 Nya Jiang is here [...] weakness. Treatments tried: rest, ice/heat, neck surg 2012, meds: mdp, motrin, tramadol, norco, tizadine, robaxin, aspcreme and biofreeze with some relief. PT at [facility] (Dec 2022), HEP from PT currently. The treatment provided mild relief. The effect of pain on patient's ADLS: Mild Impairment. Past Medical History: Diagnosis Date Chronic pain disorder GERD (gastroesophageal reflux disease) Hyperlipidemia Hypertension Joint pain Past Surgical History: Procedure Laterality Date HERNIA REPAIR HYSTERECTOMY INJECTION BLOCK NERVE MEDIAL BRANCH: bilat C 12/18 01/16 Bilateral 03/12/2023 Performed by Kamar Koroma MD at [facility] NECK SURGERY 2012 Allergies Allergen [...] KACI Becerra 02/17/24 1327 documented in this encounterVerm[facility] HospitalAciex Therapeutics04-04-2024 Instructions* Patient Instructions* Soila Callahan CNA - [...] the nearest emergency room. documented in this encounterWilson [address] HospitalSwidjit10-16-2023 Evaluation note* Encounter Date Diagnosis Assessment Notes Treatment Notes Treatment Clinical Notes Aug, Epigastric pain (ICD-10 - R10.13) Aug, Bloating (ICD-10 - R14.0) Aug, Nausea (ICD-10 - R11.0) [facility] Other 10-09-2023 Evaluation note* Encounter Date Diagnosis Assessment Notes Treatment Notes Treatment Clinical Notes Aug, Epigastric pain (ICD-10 - R10.13) Aug, Right upper quadrant abdominal pain (ICD-10 - R10.11) [facility] Other 10-03-2023 Evaluation note* Encounter Date Diagnosis Assessment Notes Treatment Notes Treatment Clinical Notes Aug, Abnormal urinalysis (ICD-10 - R82.90) [facility] Other 10-02-2023 Evaluation note* Encounter Date Diagnosis [...] (ICD-10 - R30.0) Assess for possible UTI [facility] Other 06-13-2023 Evaluation note* Encounter Date Diagnosis Assessment Notes Treatment Notes Treatment Clinical Notes Apr, Chronic fatigue (ICD-10 - R53.82) Pt agrees to labs to f/o metabolic causes. Discussed stress relief, family support and help with husbands medical problems. [facility] Other 12-12-2022 Evaluation note* Encounter Date Diagnosis Assessment Notes Treatment Notes Treatment Clinical Notes Oct, Neck pain (ICD-10 - M54.2) [facility] Other 10-27-2022 NotePROCEDURE: XR TOES LT MIN [...] Electronically authenticated by: RAMYA IQBAL Date: 2022-09-10 06:16[facility]06-24-2022 NotePROCEDURE: XR WRIST LT MIN 3 V [...] Electronically authenticated by: RAMYA IQBAL Date: 2022-05-08 13:14[facility] noteNo assessment information [facility] Work Phone: Evaluation noteNo InformationNometropolitan [facility] [employer] Other Evaluation note* Diagnosis Onset Date Resolution Status Anemia acute Essential (primary) hypertension acute Fatigue acute [facility] Work Phone: Evaluation note* Diagnosis Cervical spondylosis without myelopathy- Primary [facility] Diagnosis Cervical spondylosis without myelopathy- Primary Cervical spondylosis without myelopathy- Primary Cervical spondylosis without myelopathy documented [facility] this [facility]* Diagnosis Cervical spondylosis without myelopathy- Primary Cervical spondylosis without myelopathy- Primary Cervical spondylosis without myelopathy documented [facility]* Diagnosis Cervical spondylosis without myelopathy- Primary documented [facility]* Diagnosis Cervical spondylosis without myelopathy- Primary Cervical spondylosis without myelopathy- Primary Cervical spondylosis without myelopathy Cervical spondylosis without myelopathy documented [facility] this encounter [facility] N[facility] - Reported* Type Description Date Medical History DEPRESSION Medical History HTN Medical History HYPERLIPEMIA Medical History COPD Surgical History BREAST REDUCTION Surgical History HERNIA REPAIR X2 Surgical History HYSTERECTOMY Surgical History NECK SURGERY [employer] Other History general Narrative - Reported* Type [...] NECK SURGERY Hospitalization History SEE SURGICAL HX [employer] Other Hospital Discharge instructions Additional Instructions Follow-up with neurosurgeon and or primary care doctor.[facility] Work Phone: Hospital Discharge instructions Additional Instructions Follow-up with your primary care doctor Return to ED if develop worsening symptoms or concernsCity [facility] Work Phone: InstructionsNot on filedocumented in this encounter [facility] SystemInstructionsNot on filedocumented in this encounter [facility] SystemInstructionsNot on filedocumented in this encounter [facility] SystemReason for referral (narrative)No reason for referral [facility] availableThe [facility] Work Phone: Summary Purpose Family History Relationship [...] Date Bronchitis December 07, 2024 9 :16am Chief Complaint Admit Date VIRTUAL:Cough December 07, 2024 9 :16am Side/abdomen/leg pain,was ER bowel block yesterday January 20, 2025 12:31pm Unknown January 20, 2025 3:45 pm Reason for Visit Admit Date Bronchitis December 07, 2024 9 :16am Abdominal pain January 20, 2025 12:3 1pm Chief Complaint Admit Date VIRTUAL:Cough December 07, 2024 9 :16am Side/abdomen/leg pain,was ER bowel block yesterday January 20, 2025 12:31pm Chief Complaint Admit Date VIRTUAL:Cough December 07, 2024 9 :16am Side/abdomen/leg pain,was ER bowel block yesterday January 20, 2025 12:31pm Unknown January 20, 2025 3:45 pm Amb Documentation January 22, 2025 10: 39am VIRTUAL:Cough January 25, 2025 1:1 1pm Chief Complaint Admit Date VIRTUAL:Cough December 07, 2024 9 :16am Side/abdomen/leg pain,was ER bowel block yesterday January 20, 2025 12:31pm Unknown January 20, 2025 3:45 pm Amb Documentation January 22, 2025 10: 39am VIRTUAL:Cough January 25, 2025 1:1 1pm body pain February 01, 2025 2:0 3pm Reason for Visit Admit Date Bronchitis December 07, 2024 9 :16am Abdominal pain January 20, 2025 12:3 1pm Bronchitis January 25, 2025 1:1 1pm Vaginitis January 25, 2025 1:1 1pm Acute hypoxemic respiratory failure Zack h 2024 2:03pm Acute UTI February 01, 2025 2:0 3pm COPD exacerbation February 01, 2025 2:0 3pm Reason for Visit Admit Date Bronchitis December 07, 2024 9 :16am Abdominal pain January 20, 2025 12:3 1pm Bronchitis January 25, 2025 1:1 1pm Vaginitis January 25, 2025 1:1 1pm Acute hypoxemic respiratory failure Zack 2024 2:03pm Acute UTI February 01, 2025 2:0 3pm COPD exacerbation February 01, 2025 2:0 3pm Hypoxia February 01, 2025 2:0 3pm Wheezing February 01, 2025 2:0 3pm Chief Complaint Admit Date VIRTUAL:Cough December 07, 2024 9 :16am Side/abdomen/leg pain,was ER bowel block yesterday January 20, 2025 12:31pm Unknown January 20, 2025 3:45 pm Amb Documentation January 22, 2025 10: 39am VIRTUAL:Cough January 25, 2025 1:1 1pm body pain February 01, 2025 2:0 3pm Amb Documentation February 05, 2025 3:2 0pm IP [facility]; COPD February 08, 2025 2:1 4pm Reason for Visit Admit Date Bronchitis December 07, 2024 9 :16am Abdominal pain January 20, 2025 12:3 1pm Bronchitis January 25, 2025 1:1 1pm Vaginitis January 25, 2025 1:1 1pm Acute hypoxemic respiratory failure [facility] 2024 2:03pm Acute UTI February 01, 2025 2:0 3pm COPD exacerbation February 01, 2025 2:0 3pm Hypoxia February 01, 2025 2:0 3pm Wheezing February 01, 2025 2:0 3pm Acute hypoxemic respiratory failure [facility] 2024 2:14pm Acute UTI February 08, 2025 2:1 4pm COPD exacerbation February 08, 2025 2:1 4pm Essential (primary) hypertension January 142024 2:14pm Hypertensive urgency February 08, 2025 2: 14pm Hypoxia February 08, 2025 2:1 4pm Smoker within last 12 months February 08, 2025 2:14pm Chief Complaint Admit Date Side/abdomen/leg pain,was ER bowel block yesterday January 20, 2025 12:31pm Unknown January 20, 2025 3:45 pm Amb Documentation January 22, 2025 10: 39am VIRTUAL:Cough January 25, 2025 1:1 1pm body pain February 01, 2025 2:0 3pm Amb Documentation February 05, 2025 3:2 0pm IP [facility]; COPD February 08, 2025 2:1 4pm left wrist swelling, pain March 16, 2025 6:09pm M25.532 - Pain in left wrist March 16 6:34pm Reason for Visit Admit Date Abdominal pain January 20, 2025 12:3 1pm Bronchitis January 25, 2025 1:1 1pm Vaginitis January 25, 2025 1:1 1pm Acute hypoxemic respiratory failure Zack h 2024 2:03pm Acute UTI February 01, 2025 2:0 3pm COPD exacerbation February 01, 2025 2:0 3pm Hypoxia February 01, 2025 2:0 3pm Wheezing February 01, 2025 2:0 3pm Acute hypoxemic respiratory failure Zack h 2024 2:14pm COPD exacerbation February 08, 2025 2:1 4pm Dyspnea on exertion February 08, 2025 2:1 4pm Essential (primary) hypertension January 142024 2:14pm Hypertensive urgency February 08, 2025 2: 14pm Hypoxia February 08, 2025 2:1 4pm Smoker within last 12 months February 08, 2025 2:14pm Acute UTI February 08, 2025 2:1 4pm Chief Complaint Admit Date left wrist swelling, pain March 16, 2025 6:09pm M25.532 March 16, 2025 6:34pm wellness June 05, 2025 1:14 pm Reason for Visit Admit Date Pain in left wrist March 16, 2025 6:09pm Anemia June 05, 2025 1:14 pm Bloating June 05, 2025 1:14 pm Cardiac murmur, unspecified June 05, 2 025 1:14pm Constipated June 05, 2025 1:14 pm Essential (primary) hypertension June 052024 1:14pm Reason for Referral Specialty Diagnoses / Procedures Referred By Florentin bright Referred To Contact Diagnoses Cervical spondylosis without myelopathy Procedures Case request operating room: INJECTION BLOCK NERVE MEDIAL BRANCH: bilat C23 [address], [place] [address], [address] [place] [address] Referral ID Status Reason Start Date Expiration Date V isits Requested Visits Authorized [id number] Pending Review 02/17/2024 02/16/2025 1 1 Reason *Waiting for appt Last OV, CT and lab results. Diagnosis 1 Epigastric pain (R10 .13) Referral Organization [facility] Referring Provider First Name Paras Referring Provider Last Name Sami Referring Provider Specialty Family [facility] Referred Organization [facility] Gastroenterolo gy Referred Provider Loan Sebastian Referred Address [address] [facility] [address] ,[place], [place],[address] Referred Provider Specialty Gastroentero logy Referral Priority Routine General Notes Cheryl Fontanez 03:03:56 PM >received today, attachments made, sent P2P Additional Source Comments INFORMATION SOURCE (unrecogn ized section and content) DATE CREATED AUTHOR 08/01/2021 [facility] DATE CREATED AUTHOR AUTHOR'S ORGANIZ ATION 03/24/2023 [facility] DATE CREATED AUTHOR AUTHOR'S ORGANIZ ATION 03/22/2025 [facility] DATE CREATED AUTHOR AUTHOR'S ORGANIZ ATION 04/14/2025 [facility] Care Teams (unrecognized sec tion and content) Team Status: Active Member Role Status Dates Paras Gallardo MD Primary Care Provider Active Team Status: Inactive Member Role Status Dates Paras Gallardo MD Primary Care Provider Active Start: March 16, 2025 End: March 16, 2025 Joana Manzo APRN Attending Provider Active Start: March 16, 2025 End: March 16, 2025 Team Status: Inactive Member Role Status Dates Paras Gallardo MD Primary Care Provider Active Start: June 05, 2025 End: June 05, 2025 Paras Gallardo MD Attending Provider Active St art: June 05, 2025 End: June 05, 2025 Team Status: Active Member Role Status Dates Paras Gallardo MD Primary Care Provider Active Team Status: Active Member Role Status Dates Paras Gallardo MD Primary Care Provider Active Start: January 19, 2025 Angel Washington MD Attending Provider Active Start : January 19, 2025 Team Status: Inactive Member Role Status Dates Paras Gallardo MD Primary Care Provider Active Start: January 20, 2025 End: January 20, 2025 Lili Cota APRN Attending Provider Active S tart: January 20, 2025 End: January 20, 2025 Team Status: Inactive Member Role Status Dates Paras Gallardo MD Primary Care Provider Active Start: January 20, 2025 End: January 20, 2025 Isela Cardenas PA-C Attending Provider Active Start: January 20, 2025 End: January 20, 2025 Team Status: Active Member Role Status Dates Paras Gallardo MD Primary Care Provider Active Start: January 22, 2025 Gypsy Mustafa CMA Attending Provider Active Start: January 22, 2025 Team Status: Inactive Member Role Status Dates Paras Gallardo MD Primary Care Provide r, Attending Provider Active Start: January 25, 2025 End: January 25, 2025 Team Status: Inactive Member Role Status Dates No Jones MD Emergency Provider Active Start: February 01, 2025 End: February 05, 2025 Paras Gallardo MD Primary Care Provider Active Start: February 01, 2025 End: February 05, 2025 Carole Kauffman MD Admit Provider Active Sta rt: February 01, 2025 End: February 05, 2025 Pushpa Brock MD Attending Provider Active Sta rt: February 01, 2025 End: February 05, 2025 Team Status: Active Member Role Status Anthony Gallardo MD Primary Care Provider Active Start: February 05, 2025 Gypsy Mustafa CMA Attending Provider Active Start: February 05, 2025 Team Status: Inactive Member Role Status Dates Paras Gallardo MD Primary Care Provide r, Attending Provider Active Start: February 08, 2025 End: February 08, 2025 Team Status: Inactive Member Role Status Dates Paras Gallardo MD Primary Care Provider Active Start: March 16, 2025 End: March 16, 2025 Joana Manzo APRN Attending Provider Active Start: March 16, 2025 End: March 16, 2025 Team Status: Inactive Member Role Status Dates Lindy Rodriguez MD Primary Care Provider Active Marek Rolle APRN Emergency Provider Active Team Status: Active Member Role Status Anthony Rodriguez MD Primary Care Provider Active Team Status: Inactive Member Role Status Anthony Gallardo MD Primary Care Provider Active Shawn Camarillo DO Emergency Provider Active Team Status: Inactive Member Role Status Dates Paras Gallardo MD Primary Care Provide r, Attending Provider Active Start: August 08, 2024 End: August 08, 2024 Team Status: Active Member Role Status Anthony Gallardo MD Primary Care Provide r, Attending Provider Active Start: August 09, 2024 Team Status: Inactive Member Role Status Anthony Gallardo MD Primary Care Provider Active Start: August 17, 2024 End: August 17, 2024 Jordon Caldwell DO Attending Provider Active Sta rt: August 17, 2024 End: August 17, 2024 Team Status: Inactive Member Role Status Dates Paras Gallardo MD Primary Care Provide r, Attending Provider Active Start: December 07, 2024 End: December 07, 2024 Director Corporate Relationship Specialty Start Date End Date Paras Gallardo MD [address] [place] [address] [id number] PCP - General Family Medicine 10/25/19 Director Corporate Relationship Specialty Start Date End Date Paras Gallardo MD [address] [place] [address] [id number] PCP - General Family Medicine 10/25/19 Team Status: Active Member Role Status Dates No Jones MD Emergency Provider Active Start: February 01, 2025 Paras Gallardo MD Primary Care Provider Active Start: February 01, 2025 Carole Kauffman MD Admit Provider, A ttending Provider Active Start: February 01, 2025 Director Corporate Relationship Specialty Start Date End Date Paras Gallardo MD [address] [place] [address] [id number] PCP - General Family Medicine 10/25/19 Team Status: Active Member Role Status Dates Paras Gallardo MD Primary Care Provider Active Start: March 16, 2025 Joana Manzo , LATHE MACHINE OPERATOR Attending Provider Active Start: March 16, 2025 Director Corporate Relationship Specialty Start Date End Date Paras Gallardo MD [address] [place] [address] [id number] PCP - General Family Medicine 10/25/19 Director Corporate Relationship Specialty Start Date End Date Paras Gallardo MD [address] [place] [address] [place] [phone] PCP - General Family Medicine 10/25/19 Director Corporate Relationship Specialty Start Date End Date Paras Gallardo MD [address] [place] [address] [place] [address] PCP - General Family Medicine 10/25/19 Team Status: Inactive Member Role Status Dates Paras Gallardo MD Primary Care Provider Active Start: June 05, 2025 End: June 05, 2025 Paras Gallardo MD Attending Provider Active St art: June 05, 2025 End: June 05, 2025 Goals (unrecognized section and content) Goals may be documented in a n alternate sectionNo InformationGoals may be documented in an alternate sectionNo InformationNo InformationNo InformationNo InformationNo InformationNo InformationNo InformationGoals may be documented in an alternate sectionGoals may be documented in an alternate sectionGoals may be documented in an alternate sectionNot on filedocumented as of this encounterNot on filedocumented as of this encounterGoals may be documented in an alternate sectionGoals may be documented in an alternate sectionGoals may be documented in an alternate sectionNot on filedocumented as of this encounterNot on filedocumented as of this encounterNot on filedocumented as of this encounterNot on filedocumented as of this encounterGoals may be documented in an alternate section REASON FOR VISIT (unrecogniz ed section and content) Reason Comments Neck Pain Reason Comments Neck Pain Reason Comments Neck [...] BE BASED ON THE PRIMARY CLINICAL RECORDS. [facility]. provides no warranty or guarantee of the accuracy or completeness of information in this document.
[2025-06-25 07:17] LABS: Hematocrit 44.0 % (36.0-48.0); Hemoglobin 15.0 g/dL (12.0-16.0); Immature Granulocytes Abs Auto 0.02 10^3/uL (0.00-0.03); Immature Granulocytes Pct Auto 0.2 % (0.0-0.5); Lymphocytes Absolute Auto 2.4 10^3/uL (1.2-3.8); Mean Corpuscular HGB Conc 34.1 g/dL (29.9-35.2); Mean Corpuscular Hemoglobin 28.7 pg (26.7-34.0); Mean Corpuscular Volume 84.1 fL (81.0-99.0); Platelet Count 310 10^3/uL (150-450); Red Blood Count 5.23 10^6/uL (4.20-5.40); White Blood Count 8.4 10^3/uL (4.0-11.0)
[2025-06-25 07:26] LABS: Alanine Aminotransferase 26 U/L (14-59); Albumin Globulin Ratio 0.9; Albumin Level 3.5 g/dL (3.4-5.0); Alkaline Phosphatase 108 U/L (46-116); Anion Gap 10.6; Aspartate Amino Transferase 17 U/L (15-37); Blood Urea Nitrogen 12.0 mg/dL (7.0-18.0); Calcium 9.1 mg/dL (8.5-10.1); Carbon Dioxide 30.6 mmol/L (21.0-32.0); Chloride 106 mmol/L (98-107); Estimated GFR (African America >60 (>=60 mL/min/1.73m^2); Estimated GFR (Non-African Ame >60 (>=60 mL/min/1.73m^2); Globulin 3.7 g/dL; Glucose 157 mg/dL (74-106); Potassium 4.2 mmol/L (3.5-5.1); Sodium 143 mmol/L (136-145); Total Protein 7.2 g/dL (6.4-8.2)
[2025-06-25 07:42] LABS: Cholesterol 187 mg/dL (<=200); HDL Cholesterol 62 mg/dL (40-60); Triglycerides 183 mg/dL (<=150); VLDL CHOLESTEROL 36.6 mg/dL
--- NOTE | 2025-06-25 08:15 | CT_ITS ---
The [address] [address] Patient Name: REJI PAULINO MRN: [id number] date: 1945 Sex: F Assigned Patient Location: LAB Current Patient Location: LAB Accession/Order Number: [id number] Exam Date: 06/25/2025 11:01 Report Date: 06/25/2025 11:03 At the request of: PARAS GALLARDO MD Procedure: CT abdomen pelvis w con CT ABDOMEN AND PELVIS WITH INTRAVENOUS CONTRAST: CLINICAL HISTORY: Abdominal bloating, Constipation, Hypertension COMPARISON: CT abdomen and pelvis 01/19/2025 TECHNIQUE: Spiral images were obtained through the abdomen and pelvis following the administration of intravenous contrast. This CT exam was performed using one or more following dose reduction techniques: Automated exposure control, adjustment of the mA and/or kV according to patient size, or use of iterative reconstruction technique. FINDINGS: Lung Bases: [No acute process.] Organs:Liver portal vein gallbladder pancreas and adrenal glands appear unremarkable. Subcentimeter low attenuating lesions involving the spleen too small for characterization. Left kidney demonstrates mild scarring. Right kidney demonstrates a small cyst. Aorta appears normal in caliber.[ GI: Stomach is grossly unremarkable. Small bowel appears nondilated. Left colon diverticulosis.[ Pelvis:[Urinary bladder is grossly unremarkable. Uterus has been removed. No adnexal mass.] Peritoneum/Retroperitoneum:No free air or free fluid or lymphadenopathy.[ Abd wall/Bones:Abdominal wall demonstrates no acute findings. Osseous structures demonstrate degenerative change.[ CT/CT abdomen pelvis w con IMPRESSION: No acute process. Colonic diverticulosis. Impression dictated by: Alistair Moura Jr., D.O. 06/25/2025 11:03 AM Dictation Location: [employer] Electronically authenticated by: [id number] Y Date: 06/25/2025 11:03
== END 2025-06-25 06:51 | disposition home or self-care (01) ==
LOC: LAB 06:50
PROVIDERS: PCP Family Medicine; Visit Provider Family Medicine
DX: K59.00 Constipation, unspecified (principal); I10 Essential (primary) hypertension; R14.0 Abdominal distension (gaseous); D64.9 Anemia, unspecified; R01.1 Cardiac murmur, unspecified; K57.90 Diverticulosis of intestine, part unspecified, without perforation or abscess without bleeding
CPT/HCPCS: 36415; 74177; 80053; 80061; 85025; Q9967

== ENCOUNTER 2025-07-03 12:48 | Outpatient (OUT) | payer MEDICARE, BC, SELFPAY ==
--- OUTSIDE RECORDS SUMMARY | 2025-02-12 11:41 | XMS_ITS ---
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
--- NOTE | 2025-07-03 12:53 | CA_ITS ---
Patient Name: REJI PAULINO MR#: [id number] : 1945 Exam Date: 07/03/2025 Ordering Doctor: DR PARAS GALLARDO M.D. ECHOCARDIOGRAM REPORT PROCEDURE: CA ECHO DOPPLER COMPLETE INDICATIONS: Murmur, HTN, COPD COMPARISON: None. DESCRIPTION: COMPLETE ECHOCARDIOGRAM Real-time transthoracic echocardiography with 2D, M-mode, spectral and color flow Doppler performed. QUALITY: Technical quality was good. LEFT VENTRICLE: Normal chamber size. Borderline left ventricular hypertrophy. Normal systolic function. Estimated left ventricular ejection fraction is 60-65%. LV EF: Normal left ventricular ejection fraction, (>55%). DIASTOLIC: Diastolic function is indeterminate. ATRIAL SEPTUM: Visually appears intact. LEFT ATRIUM: Normal chamber size. RIGHT ATRIUM: Normal chamber size. RIGHT VENTRICLE: Normal chamber size. Normal right ventricular systolic function. TRICUSPID VALVE: Normal mobility and thickness. No stenosis with no regurgitation. MITRAL VALVE: Mildly thickened with normal mobility. No evidence of mitral valve stenosis. Moderate mitral annular calcification. Trivial mitral regurgitation. AORTIC VALVE: Normal trileaflet appearance. Moderately to severely calcified aortic valve. Moderately to severely diminished mobility. Doppler velocity suggest moderate to severe aortic valve stenosis. DVI 0.26, LANDRY 0.8 cm2. No aortic regurgitation. AORTIC ROOT: Normal diameter and appearance. Ascending aorta is normal in size. PULMONIC VALVE: Not well visualized. No stenosis. No regurgitation. PERICARDIUM: No evidence of pericardial effusion. IVC: Collapses with inspiration. PLEURA: CONCLUSION: 1. Normal left ventricular size and systolic function. LVEF is estimated at 60 to 65%. 2. Normal right ventricular size and systolic function. 3. Moderate-severe calcification of the aortic valve with at least moderate to severe aortic valve stenosis based on valve area calculation. Probably consistent with low-flow low gradient aortic valve stenosis. 4. A transesophageal echocardiogram is recommended for better assessment of the aortic valve. Adult Echocardiography Procedure Report Left Ventricle LVEDD (3.7 - 5.6 cm): 3.73 cm LVESD (2.2 - 4.0 cm): 2.95 cm LVIVS thickness (0.6 - 1.2 cm): 1.01 cm LVPW thickness (0.5 - 1.0 cm): 1.08 cm e': 0.06 m/s E - e': 12.24 LVOT Max Gradient: 2.14 mm[Hg] LVOT Area (cm2): 0.73 m/s Peak Velocity (LVOT): 0.73 m/s Mean Velocity (LVOT): 0.44 m/s LVOT Diameter 1.92 cm Left Ventricular Ejection Fraction: 60-65 % Left Atrium LA Volume Index (2D A2C): 26.11 ml/m2 Left Atrium Systolic Dimension: 3.38 cm Mitral Valve MV E to A Ratio: 0.79 Mitral Valve A-Wave Peak Velocity: 0.89 m/s Mitral Valve E-Wave Peak Velocity: 0.70 m/s Right Ventricle Aorta AO Root Diam: 2.37 cm Ascending Ao Diam: 2.12 cm Aortic Valve AoV Area (Peak Willie): 0.76 cm2, 0.91 cm2 AoV Area (VTI): 0.88 cm2, 1.21 cm2 Peak Velocity(Antegrade Flow): 2.33 m/s, 2.11 m/s, 2.78 m/s Peak Gradient(Antegrade Flow): 21.64 mm[Hg], 17.83 mm[Hg], 31.01 mm[Hg] Mean Velocity(Antegrade Flow): 1.42 m/s, 1.41 m/s, 1.74 m/s Mean Gradient(Antegrade Flow): 10.31 mm[Hg], 9.71 mm[Hg], 15.29 mm[Hg] Velocity Time Integral: 39.67 cm, 42.39 cm, 54.92 cm Tricuspid Valve Pulmonic Valve Peak Gradient: 3.06 mm[Hg], 3.98 mm[Hg] Right Atrium Right Atrium Systolic Pressure: 24.20 ml, 24.20 ml Dictated by: Carlos Lovett M.D. on 07/03/2025 at 20:37 Approved by: Carlos Lovett M.D. on 07/03/2025 at 20:44
--- OUTSIDE RECORDS SUMMARY | 2025-07-03 12:53 | XMS_ITS | Clinical Summary ---
Author Organization [facility] tem Address [id number] [address] [place] [address] Care Team Providers Care Nurse Practitioner Physicians Assistant Name Role Phone Cheyanne Hernandez MD Primary Care Provider [phone] Allergies Active Allergy Reactions Criticality Noted Date Comments Nylon Rash Low 03/12/2023 Penicillins Rash Low 03/25/2021 Medications * This document contains information received from the source organization and may not represent a complete record from that organization. losartan (COZAAR) 50 mg tablet Take 2 tablets (100 mg total) by mouth in the morning. Active atorvastatin (LIPITOR) 80 mg tablet Take 1 tablet (80 mg total) by mouth in the morning. Active Active Problems Problem Noted Date Diagnosed Date Cervical spondylosis without myelopathy 12/31/19 23 Overview (12/31/2022): Added automatically from request for surgery [id number] Generalized anxiety disorder 01/16/2020 Dysthymic disorder 01/16/2020 Encounters Date Type Department Care Team Description 05/01/2025 Telephone [facility] [address] [place] [address] Leana Rubin RN 04/12/2025 12:00 PM EDT Office Visit [facility] [address] [place] [address] Raul Castillo PA Cervical spondylosis without myelopathy (Primary Dx) 04/12/2025 Travel from Last 3 Months Family History Medical History Relation Name Comments COPD Father Cancer Father Cancer Mother Relation Name Status Comments Father Mother Social History Tobacco Use Types Packs/Day Years Used Date Smoking Tobacco: Every Day Cigarettes Smokeless Tobacco: Never Tobacco Cessation:Ready to Q uit: Not Asked; Counseling Given: Not Answered Alcohol Use Standard Drinks/Week Comments Never 0 (1 standard drink = 0.6 oz pur e alcohol) Childcare Answer Date Recorded Childcare Unknown 04/26/2019 Employment Answer Date Recorded Employment Unknown 04/26/2019 Hunger Screening Answer Date Recorded Within the past 12 months we worried whether our food would run out before we got money to buy more. Never True 04/12/2025 Within the past 12 months th e food we bought just didn't last and we didn't have money to get more. Never True 04/12/2025 Purpose - Life Answer Date Recorded Purpose and direction in life Unknown Comments No Sex and Gender Information Value Date Recorded Sex Assigned at Not on file Legal Sex Female 11:29 AM EDT Gender Identity Not on file Sexual Orientation Not on file Last Filed Vital Signs Vital Sign Reading Time Taken Comments Blood Pressure 118/96 04/12/2025 12:18 PM EDT Pulse 93 04/12/2025 12:18 PM EDT Temperature 36.4 C (97.6 F) 03/09/2025 9:44 AM EDT Respiratory Rate 18 04/12/2025 12:18 PM EDT Oxygen Saturation 95% 04/12/2025 12:18 PM EDT Inhaled Oxygen Concentration - - Weight 83.5 kg (184 lb) 04/12/2025 12:18 PM EDT Height 154.9 cm (5' 1 ) 04/12/2025 12:18 PM EDT Body Mass Index 34.77 04/12/2025 12:18 PM EDT Plan of Treatment Health Maintenance Due Date Last Done Comments Tobacco Counseling 1945 Depression Screening 1956 DTaP,Tdap and Td Vaccines (1 - Tdap) 1963 Zoster (Shingles) Vaccine (1 of 2) 1994 Fall Risk Screening 2009 COVID-19 Vaccine (3 - 2024-2 5 season) 2024 02/05/2021, 01/09/2021 Influenza Vaccine 07/16/2025 08/17/2024, , 07/22/2019 Tobacco Screening 04/12/2026 04/12/2025 Medical Devices Implanted Type Area Hookman Device Identifier Shelf Expiration Date Model / Serial / Lot Cervical Description:cadaver bone Insurance MEDICARE ANTH [id number] PLAN Care Teams Nurse Practitioner Physicians Assistant Relationship Specialty Start Date End Date Cheyanne Hernandez MD [facility] [place] [address] PCP - General Family Medicine 10/25/19
--- OUTSIDE RECORDS SUMMARY | 2025-07-03 12:53 | XMS_ITS | Clinical Summary ---
Author Organization [facility] Address [address] [place] [address] Care Team Providers Care Campus Interviews Intern Name Role Phone Unavailable Primary Care Provider Unavailabl e Social History Tobacco Use Types Packs/Day Years Used Date Smoking Tobacco: Never Assessed Comments Unknown Sex and Gender Information Value Date Recorded Sex Assigned at Not on file Legal Sex Female 7:18 PM EDT Gender Identity Not on file Sexual Orientation Not on file Plan of Treatment Not on file Insurance MEDICARE
--- OUTSIDE RECORDS SUMMARY | 2025-07-03 12:53 | XMS_ITS | Clinical Summary ---
Author Organization [facility] Address [address] [place] [address] Care Team Providers Care Butt Presser Name Role Phone Unavailable Primary Care Provider Unavailabl e Social History Tobacco Use Types Packs/Day Years Used Date Smoking Tobacco: Never Assessed DE Safety & Environment Answer Date Rec orded Fear of Current or Ex-Partner Not on file Emotionally Abused Not on file 01/06/2024 Physically Abused Not on file 01/06/2024 Sexually Abused Not on file 01/06/2024 Physically or Sexually Abused Not on file Comments Unknown Sex and Gender Information Value Date Recorded Sex Assigned at Not on file Legal Sex Female 12:40 AM EDT Gender Identity Not on file Sexual Orientation Not on file Plan of Treatment Not on file
--- OUTSIDE RECORDS SUMMARY | 2025-07-03 12:53 | XMS_ITS | Patient Health Record ---
Author Organization [facility] Address [address] [place] [address] Care Team Providers Care Factory Laborer Name Role Phone Cheyanne Hernandez Primary Care Provider Winston Gordon Unavailable [phone] Reason For Referral No Information Encounters Encounter Location Date Provider Diagnosis Pulmonary Medicine [place] [address] [place] [address] 02/12/2025 Winston Summers Plan Of Treatment No Information Insurance Providers Payer Name Payer Address Payer Phone Subscriber Number Group Number Insured Name Patient Relationship to Insured Coverage Start Date Coverage End Date [place]IC[place] [address] [place] [address] [id number] Nya Jiang Self - patient is the insured [employer] SUPPLEMENT [employer]URANCE [address] [place] [phone] [id number] Nya Jiang Self - patient is the insured
== END 2025-07-03 12:49 | disposition home or self-care (01) ==
LOC: CARD 12:48
PROVIDERS: PCP Family Medicine; Visit Provider Family Medicine
DX: R01.1 Cardiac murmur, unspecified (principal); I10 Essential (primary) hypertension
CPT/HCPCS: 93306

== ENCOUNTER 2025-08-23 12:13 | Emergency (ER) | payer MEDICARE, OTHER, BC, SELFPAY ==
[2025-08-23 12:15] VITALS: BP 132/86; PULSE 91; TEMP 36.7; O2SAT 94; BMI 35.1
--- NOTE | 2025-08-23 13:12 | XR_ITS ---
The [address] [address] Patient Name: REJI PAULINO MRN: [id number] date: 1945 Sex: F Assigned Patient Location: ER Current Patient Location: ER Accession/Order Number: [id number] Exam Date: 08/23/2025 13:20 Report Date: 08/23/2025 13:36 At the request of: IAIN CLEMONS Procedure: XR hip RT 1V w/ pelvis XR hip RT 1V w/ pelvis 08/23/2025 1:29 PM SIGNS AND SYMPTOMS: ^Right Hip pain PROTOCOL: Frontal radiograph the pelvis with frontal and frog-leg views of the right hip COMPARISON: None FINDINGS: Degenerative changes are noted in the sacroiliac joints. The hips are intact. There is no fracture or dislocation. Subcortical sclerosis is noted in the symphysis pubis. Vascular calcifications are present in the pelvis. XR/XR hip RT 1V w/ pelvis IMPRESSION: No acute bony injury. Degenerative changes are noted in the sacroiliac joints and symphysis pubis. The right hip is grossly intact. Impression dictated by: Richard Zmaudio M.D. 08/23/2025 1:36 PM Dictation Location: [place] [address] Electronically authenticated by: [id number] Y Date: 08/23/2025 13:36
--- OUTSIDE RECORDS SUMMARY | 2025-08-23 13:15 | XMS_ITS | CCD ---
Author Organization [facility] Care Team Providers Care Housekeeping Room Attendant Name Role Phone BALBINA, DR REDDY Attending Unavailable BALBINA, DR REDDY Consulting Unavailable BALBINA, DR REDDY Admitting Unavailable ZIRICHARDSON, DR RAMYA Bernal Consulting Unavailable PAY, DR FAJARDO Consulting Unavailable MD Lindy Rodriguez Primary Care Provider MARICARMEN Rolle Emergency Provider [phone] Amanda Srinivasan Unavailable SAMI, DR PARAS Carrion [...] DR PARAS Carrion Admitting Unavailable GALLARDO, DR CORDEROIA E Attending Unavailable MD Paras Gallardo Primary Care Provider RabiaDO jorge luis Shawn Antony Emergency Provider Paras Gallardo Unavailable Thomas Calles Unavailable Paras Gallardo MD Primary Care Provider Paras Gallardo MD Primary Care Provider Isela Patiño PA-C Attending Provider No Jones MD Emergency Provider Carole Kauffman MD Admit Provider Carole Kauffman MD Attending Provider Pushpa Brock MD Attending Provider Paras Gallardo MD Primary Care Provider Joana Manzo APRN Attending Provider Isela Patiño Admitting Unavailable Isela Patiño Attending Unavailable Paras Gallardo E Primary Care Unavailable Joana Manzo Admitting Unavailable Joana Manzo Attending Unavailable Paras Gallardo E Primary Care Unavailable Paras Gallardo E Primary Care Unavailable Carole Kauffman Admitting Unavailable Pushpa Brock Attending Unavailable ROSITA CASTILLO Attending Unavailable PARAS GALLARDO Referring Unavailable PARSA GALLARDO E Primary Care Unavailable COREY KAMAR E Admitting Unavailable KAMAR KOROMA E Attending Unavailable PARAS GALLARDO E Referring Unavailable GALLARDO, PARAS E Primary Care Unavailable KOROMA KAMAR E Attending Unavailable KOROMA, KAMAR E Referring Unavailable GALLARDO, PARAS E Primary Care Unavailable ROSITA CASTILLO Attending Unavailable PARAS GALLARDO E Referring Unavailable PARAS GALLARDO E Primary Care Unavailable ROSITA CASTILLO Attending Unavailable GALLARDO, PARAS E Referring Unavailable GALLARDO, PARAS E Primary Care Unavailable Paras Gallardo MD Primary Care Provider Joana Manzo APRN Attending Provider [phone] Paras Gallardo MD Attending Provider Paras Gallardo MD Primary Care Provider JULIAN ARELLANO Attending Unavailable Allergies Allergy Classification Reported Allergen(s) Allergy Type Date of Onset Reaction(s) Facility (3 sources) Ciprofloxacin Drug Allergy 07-12-20 21 [facility] Repository (19 sources) Penicillins; Translations: [PENICILLINS] Drug allergy (disorder) 03-25-20 21 Rash [facility] Repository (2 sources) Nylon 12 Drug allergy (disorder) [facility] (20 sources) nylon; Translations: [Nylon] Allergy to substance 10-10-20 22 Swelling, Rash [facility] (20 sources) Penicillin G Benzathine; Translations: [penicillin G benzathine] Drug allergy 08-08-20 24 Unknown, Unknown Reaction [facility] (20 sources) cefdinir Drug Allergy 08-08-20 24 Unknown, Unknown Reaction [facility] (7 sources) venlafaxine Drug Allergy Unknown [facility] Other (18 sources) venlafaxine Drug Allergy 08-08-20 24 Unknown, Unknown Reaction [facility] (5 sources) Penicillin G Benzathine & Proc Drug allergy Unknown [facility] Other (5 sources) NYLON STITCHING Propensity to adverse reactions 10-13-20 17 Unknown [facility] Other (5 sources) Allergies Reconciled Propensity to adverse reactions Unknown [facility] Other (5 sources) patient allergy list reviewed by nurse or physicia Propensity to adverse reactions 10-13-20 17 Comment:Done [employer] Other (2 sources) Penicillins Propensity to adverse reactions to drug 03-25-20 [facility] [employer] (4 sources) Penicillins Propensity to adverse reactions to drug 03-25-20 [facility] (1 source) cefdinir Drug Allergy 03-16-20 [facility] Repository (1 source) Penicillins Drug allergy (disorder) 03-16-20 [facility] Repository (1 source) venlafaxine Drug Allergy 03-16-20 [facility] Repository Medications Current Medications Medication Drug Class(es) Dates Sig (Normalized) Sig (Original) [id number] 200 actuat albuterol 0.09 mg/actuat metered dose inhaler (20 sources) beta2-Adrenergic Agonist Start: 02-05-2025 Albuterol Sulfate [...] 80 mg tablet Discontinued 0 .ROUTE .COMPLEX 90 [...] formoterol fumarate 0.0045 mg/actuat metered dose inhaler (6 sources) Corticosteroid, beta2-Adrenergic Agonist Start: 02-05-2025 Budesonide-Formoterol [...] 100 mg tablet Discontinued 0 .ROUTE .COMPLEX November [...] 2022 12:00am take 2 tablets by mo [facility] in the morning losartan (COZAAR) 50 [...] 2023 10:04am take 1 tablet by lenin every six hours as needed for pain HYDROcodone-Acetaminophen 5-325 MG TAKE 1 TABLET BY MOUTH EVERY 6 HOURS NEEDED FOR PAIN Oral for 7 Days Not-Taking amLODIPine 5 mg oral tablet (6 sources) Dihydropyridine Calcium Channel Rowdy Start: 02-05-2025 End: 03-16-2025 take 1 tablet by mouth once daily Amlodipine 5 mg Tablet Discontinued 5 MG PO Daily February 05, 2025 12:00am March 16, 2025 6:17pm azithromycin 250 mg oral tablet (14 sources) Macrolide Antimicrobial Start: 02-05-2025 End: 03-16-2025 [...] 2-5) PO benzonatate 200 mg oral capsule (11 sources) Non-narcotic Antitussive Start: 12-07-2024 End: 01-20-2025 Benzonatate 200 mg capsule Discontinued 200 MG PO 2-3 TIMES PER DAY as needed for cough December 07, 2024 1:00am January 20, 2025 2:28pm cholecalciferol 1.25 mg oral capsule (19 sources) Vitamin D Start: 01-17-2024 End: 01-18-2024 take 1 capsule by mouth every week Cholecalciferol (Vitamin D3) 1,250 mcg (50,000 unit) capsule Discontinued 1250 MCG PO every week January 17, 2024 1:00am January 18, 2024 10:06am take 1 capsule by mouth every we ek Cholecalciferol 1.25 MG (97066 UT) 1 capsule Orally weekly for 90 days Active Cock-Up Wrist Splint unit (4 sources) Start: 03-16-2025 End: 06-05-2025 Cock-Up Wrist [...] 100 MG PO Twice daily 28 05March 28, 2023 12:00am January 17, 2024 3:51pm [...] 2024 5:32pm fluconazole 150 mg oral tablet (20 sources) Azole Antifungal Start: 01-25-2025 End: 02-01-2025 Fluconazole 150 mg tablet Discontinued 150 MG PO Q3D January 25, 2025 12:00am February 01, 2025 11:45am Start: 01-18-2024 End: 08-08-2024 take 1 tablet by mouth once daily Fluconazole 100 mg tablet Discontinued 100 MG PO Daily 05 21January 18, 2024 1:00am August 08, 2024 2:00pm [...] 2022 12:00am oseltamivir 75 mg oral capsule (7 sources) Neuraminidase Inhibitor Start: 01-26-2025 End: 02-05-2025 take 1 capsule by mouth twice daily Oseltamivir (Tamiflu) 75 mg capsule Discontinued 75 MG PO Twice daily 08 19January 26, 2025 12:00am February 05, 2025 10:19am predniSONE 20 mg oral tablet (20 sources) Start: 03-17-2025 End: 06-05-2025 take 2 [...] 3:52pm traMADol hydrochloride 50 mg oral tablet (16 sources) Opioid Agonist Start: 10-10-2022 End: 03-28-2023 [...] Translations: [Benign paroxysmal vertigo, unspecified ear] Episodic Congestive heart failure; nonhypertensive (2 sources) Chronic diastolic (congestive) heart failure; Translations: [Chronic diastolic (congestive) heart failure] Onset: 08-01-2025 Chronic Deficiency and other anemia (20 sources) Anemia; Translations: [Anemia, unspecified] 01-17-2024 Episodic Deficiency and other anemia (2 sources) Anemia, unspecified; Translations: [Anemia, unspecified] 08-08-2024 Episodic Disorders of lipid metabolism (5 sources) Hyperlipidemia; Translations: [Hyperlipidemia, unspecified] Chronic Esophageal disorders (8 sources) Gastro-esophageal reflux disease with esophagitis; Translations: [Gastro-esophageal reflux disease with esophagitis, without bleeding] Chronic Esophageal disorders (1 source) Esophageal disorders Essential hypertension (20 sources) Benign essential hypertension; Translations: [Essential hypertension, benign] Onset: 10-13-2017 01-17-2024 Chronic Genitourinary symptoms and ill-defined conditions (3 sources) Other abnormal findings in urine; Translations: [Unspecified abnormal findings in urine] Onset: 07-30-2021 Episodic Headache; including migraine (20 sources) Frontal headache ; Translations: [Frontal headache] Onset: 06-20-2018 01-17-2024 Episodic Heart valve disorders (3 sources) Aortic valve stenosis; Translations: [Nonrheumatic aortic (valve) stenosis] Onset: 08-01-2025 07-04-2025 Chronic Heart valve disorders (20 sources) O/E - cardiac murmur; Translations: [Cardiac murmur, unspecified] 01-17-2024 Episodic Hypertension with complications and secondary hypertension (8 sources) Hypertensive urgency ; Translations: [Hypertensive urgency] 02-08-2025 Chronic Immunizations and screening for infectious disease (5 sources) Vaccination given; Translations: [Encounter for immunization] Episodic Inflammatory diseases of female pelvic organs (18 sources) Vaginitis; Translations: [Acute vaginitis] 01-18-2024 Episodic Malaise and fatigue (20 sources) Fatigue; Translations: [Chronic fatigue, unspecified] Chronic Malaise and fatigue (20 sources) Fatigue; Translations: [Other fatigue] 01-17-2024 Episodic Mood disorders (20 sources) Moderate recurrent major depression; Translations: [Major depressive disorder, recurrent episode, moderate] Onset: 10-13-2017 01-17-2024 Chronic Nausea and vomiting (9 sources) Nausea; Translations: [Nausea] Episodic Nonspecific chest pain (7 sources) Chest pain; Translations: [Chest pain, unspecified] Onset: 08-01-2025 Episodic Nutritional deficiencies (1 source) Iron deficiency Episodic Other aftercare (2 sources) Other extermination inspector (current) drug therapy; Translations: [OTH JAIL CURRENT DRUG THERAPY] Onset: 07-30-2021 Episodic Other bone disease and musculoskeletal deformities (2 sources) Bone cyst; Translations: [Other cyst of bone, unspecified site] 03-17-2025 Episodic Other circulatory disease (18 sources) Elevated blood-pressure reading without diagnosis of hypertension; Translations: [Elevated blood-pressure reading, without diagnosis of hypertension] 01-17-2024 Episodic Other connective tissue disease (5 sources) Pain in limb; Translations: [Pain in left toe(s)] Episodic Other connective tissue disease (7 sources) Pain in right foot; Translations: [Pain in right foot] 01-17-2024 Episodic Other connective tissue disease (11 sources) Pain in toe; Translations: [Pain in left toe(s)] 01-17-2024 Episodic Other connective tissue disease (11 sources) Foot pain; Translations: [Pain in right foot] 01-17-2024 Episodic Other connective tissue disease (2 sources) Pain of toe of left foot; Translations: [Pain in left toe(s)] 01-17-2024 Episodic Other gastrointestinal disorders (20 sources) Chronic idiopathic constipation; Translations: [Chronic idiopathic constipation] 01-17-2024 Chronic Other gastrointestinal disorders (20 sources) Abdominal bloating; Translations: [Abdominal distension (gaseous)] 01-17-2024 Episodic Other gastrointestinal disorders (4 sources) Abdominal distension (gaseous); Translations: [ABDOMINAL DISTENSION GASEOUS] Onset: 01-11-2023 Episodic Other gastrointestinal disorders (4 sources) Constipation; Translations: [Constipation, unspecified] 06-05-2025 Episodic Other lower respiratory disease (2 sources) Wheezing; Translations: [Wheezing] 02-02-2025 Episodic Other lower respiratory disease (6 sources) Hypoxia; Translations: [Hypoxemia] 02-02-2025 Episodic Other lower respiratory disease (7 sources) Hypoxemia; Translations: [Hypoxemia] 02-05-2025 Episodic Other lower respiratory disease (4 sources) Wheezing; Translations: [Wheezing] 02-05-2025 Episodic Other lower respiratory disease (4 sources) Dyspnea on exertion; Translations: [Other forms [...] wrist] 01-17-2024 Episodic Other non-traumatic joint disorders (3 sources) Pain of left wrist; Translations: [Pain [...] Onset: 01-18-2018 Episodic Pancreatic disorders (not diabetes) (19 sources) Acute pancreatitis without necrosis or infection, unspecified; Translations: [Acute pancreatitis] Onset: 07-30-2021 01-17-2024 Episodic Residual codes; unclassified (1 source) Acquired absence of both cervix and uterus; Translations: [ACQUIRED ABSENCE BOTH CERVIX AND UTERUS] Onset: 01-13-2023 Episodic Residual codes; unclassified (20 sources) Amnesia; Translations: [Other amnesia] 01-17-2024 Episodic Residual codes; unclassified (18 sources) Disorientated; Translations: [Disorientation, unspecified] 01-17-2024 Episodic Residual codes; unclassified (13 sources) Memory impairment; Translations: [Other amnesia] 01-17-2024 Episodic Respiratory failure; insufficiency; arrest (adult) (15 sources) Acute hypoxemic respiratory failure; Translations: [Acute respiratory failure with hypoxia] 02-01-2025 Episodic Screening and history of mental health and substance abuse codes (9 sources) Personal history of nicotine dependence; Translations: [...] COVID-19] Onset: 07-30-2021 Unclassified (4 sources) A [facility] screening has identified you as FRAIL or [...] Four Ways to Beat the Frailty Risk [email or web address]-[email or web address] [email or web address]-[email or web address] scb-tcbu-np-beat-th e-fra ilty-risk 02-05-2025 Urinary tract infections (20 [...] Onset: 01-11-2019 Episodic Other connective tissue disease (13 sources) Neuropathy; Translations: [Neuralgia and neuritis, unspecified] Onset: 01-11-2019 01-17-2024 Episodic Residual codes; unclassified (5 sources) Pale complexion; Translations: [Pallor] Onset: 12-03-2017 Episodic Results Test Name Value Interpretation Reference Range Facility Office Visiton 08-01-2025 Follow-up visit [id number] Nathaly Jiang E 1945 F Date Provider Department Center 08/01/2025 Darío-JULIAN ARELLANO CARD [facility] Family History Family Status - Relation Status Age at Mother Father Level of Service:00472 DE OFFICE/OUTPATIENT [facility] HIGH MDM 60 MINUTES Reason for Visit and Comments: New Patient [632] - Patient is here today for aortic stenosis and to establish care with cardiology Patient complains of fatigue, chest pain, leg swelling, using her o2 in the morning after waking up. Patient denies palpitations/racing heart, dizziness/llight headed Shortness of Breath [655273] Depression [32] COPD [313] Hypertension [908342] Hyperlipidemia [182] Normal [facility] Orders Onlyon 07-31-2025 Orders Only [id number] Nathaly Jiang E 1945 F Date Provider Department Center 07/31/2025 [id number], HISTORICAL CARD [facility] Family History Family Status - Relation Status Age at Mother Father Normal [facility] Orders Onlyon 07-05-2025 Orders Only [id number] Nathaly Jiang nhes 1945 F Date Provider Department Center 07/05/2025 [id number], HISTORICAL CARD [facility] No family history on file Normal [facility] Basophils Auto (Bld) [#/Vol] Ordered By: Paras Gallardo on 06-25-2025 Basophils (Bld) [#/Vol] 0.1 10 3/uL 0.0-0.1 [facility] Basophils/100 WBC Auto (Bld) Ordered By: Paras Gallardo on 06-25-2025 Basophils/100 WBC (Bld) 0.8 % 0.2-2.0 [facility] Cholesterol in LDL Calc [Mas s/Vol]Ordered By: Paras Gallardo on 06-25-2025 Cholesterol in LDL [Mass/Vol] 89.0 mg/dL [facility] Comment on above: <100 mg/dl [id number] 0-129 mg/dl NEAR OR ABOVE [id number] mg/dl BORDERLINE [id number] mg/dl HIGH>190 mg/dl VERY HIGH Cholesterol in VLDL Calc [Ma ss/Vol]Ordered By: Paras Gallardo on 06-25-2025 Cholesterol in VLDL [Mass/Vol] 36.6 mg/dL [facility] Eosinophils/100 WBC Auto (Bl d)Ordered By: Paras Gallardo on 06-25-2025 Eosinophils/100 WBC (Bld) 3.9 % 0.9-7.0 [facility] Erythrocyte distribution wid th Auto (RBC) [Ratio]Ordered By: Paras Gallardo on 06-25-2025 Erythrocyte distribution width (RBC) [Ratio] 11.9 % 11.0-15.0 [facility] Globulin Calc (S) [Mass/Vol] Ordered By: Paras Gallardo on 06-25-2025 Globulin (S) [Mass/Vol] 3.7 g/dL [facility] Glomerular filtration rate ( GFR) estimation in non- AmericanOrdered By: Paras Gallardo on 06-25-2025 GFR/1.73 sq M.predicted among non-blacks MDRD (S/P/Bld) [Vol rate/Area] mL/min/{1.73_m2} >=60 mL/min/1.7 3m 2 [facility] Hematocrit Auto (Bld) [Volum e fraction]Ordered By: Paras Gallardo on 06-25-2025 Hematocrit (Bld) [Volume fraction] 44.0 % 36.0-48.0 [facility] Hemoglobin [Mass/volume] in BloodOrdered By: Paras Gallardo on 06-25-2025 Hemoglobin (Bld) [Mass/Vol] 15.0 g/dL 12.0-16.0 [facility] Laboratory - Chemistry and C hemistry - challengeOrdered By: Paras Gallardo on 06-25-2025 Albumin [Mass/Vol] 3.5 g/dL 3.4-5.0 [facility] ALP [Catalytic activity/Vol] 108 U/L 46-116 [facility] ALT [Catalytic activity/Vol] 26 U/L 14-59 [facility] AST [Catalytic activity/Vol] 17 U/L 15-37 [facility] Bilirubin [Mass/Vol] 0.4 mg/dL 0.2-1.0 [facility] Calcium [Mass/Vol] 9.1 mg/dL 8.5-10.1 [facility] Chloride [Moles/Vol] 106 mmol/L 98-107 [facility] Cholesterol [Mass/Vol] 187 mg/dL <=[address] [facility] Cholesterol in HDL [Mass/Vol] 62 mg/dL High 40-60 [facility] Comment on above: > or =60 mg/dl - LOW CARDIOVASCULAR RISK<40 mg/dl - HIGH CARDIOVASCULAR RISK CO2 [Moles/Vol] 30.6 mmol/L 21.0-32.0 [facility] Creatinine [Mass/Vol] 0.86 mg/dL 0.55-1.02 [facility] GFR/1.73 sq M.predicted MDRD (S/P/Bld) [Vol rate/Area] mL/min/{1.73_m2} >=60 mL/min/1.7 3m 2 [facility] Glucose [Mass/Vol] 157 mg/dL High 74-106 [facility] Potassium [Moles/Vol] 4.2 mmol/L 3.5-5.1 [facility] Protein [Mass/Vol] 7.2 g/dL 6.4-8.2 [facility] Sodium [Moles/Vol] 143 mmol/L 136-145 [facility] Triglyceride [Mass/Vol] 183 mg/dL High <=150 [facility] Urea nitrogen [Mass/Vol] 12.0 mg/dL 7.0-18.0 [facility] Urea nitrogen/Creatinine [Mass ratio] 14.0 mg/mg [facility] Laboratory - Hematology and Cell countsOrdered By: Paras Gallardo on 06-25-2025 Immature granulocytes/100 WBC (Bld) 0.2 % 0.0-0.5 [facility] Leukocytes [#/volume] correc sheila for nucleated erythrocytes in Blood by Automated counOrdered By: Paras Gallardo on 06-25-2025 WBC corrected for nucl RBC Auto (Bld) [#/Vol] 8.4 10 3/uL 4.0-11.0 [facility] Lymphocytes Auto (Bld) [#/Vo l]Ordered By: Paras Gallardo on 06-25-2025 Lymphocytes (Bld) [#/Vol] 2.4 10 3/uL 1.2-3.8 [facility] Lymphocytes/100 WBC Auto (Bl d)Ordered By: Paras Gallardo on 06-25-2025 Lymphocytes/100 WBC (Bld) 28.4 % 20.5-60.0 [facility] MCH Auto (RBC) [Entitic mass ]Ordered By: Paras Gallardo on 06-25-2025 MCH (RBC) [Entitic mass] 28.7 pg 26.7-34.0 [facility] MCHC Auto (RBC) [Mass/Vol]Or dered By: Paras Gallardo on 06-25-2025 MCHC (RBC) [Mass/Vol] 34.1 g/dL 29.9-35.2 [facility] MCV Auto (RBC) [Entitic vol] Ordered By: Paras Gallardo on 06-25-2025 MCV (RBC) [Entitic vol] 84.1 fL 81.0-99.0 [facility] Monocytes Auto (Bld) [#/Vol] Ordered By: Paras Gallardo on 06-25-2025 Monocytes (Bld) [#/Vol] 0.7 10 3/uL 0.3-0.8 [facility] Monocytes/100 WBC Auto (Bld) Ordered By: Paras Gallardo on 06-25-2025 Monocytes/100 WBC (Bld) 7.9 % 1.7-12.0 [facility] Neutrophils Auto (Bld) [#/Vo l]Ordered By: Paras Gallardo on 06-25-2025 Neutrophils (Bld) [#/Vol] 4.9 10 3/uL 1.4-6.5 [facility] Neutrophils/100 WBC Auto (Bl d)Ordered By: Paras Gallardo on 06-25-2025 Neutrophils/100 WBC (Bld) 58.8 % 43.0-75.0 [facility] No Panel InformationOrdered By: Paras Gallardo on 06-25-2025 Eosinophils # (Auto) 0.3 10 3/uL 0.0-0.7 [facility] Immature Granulocyte # (Auto) 0.02 10 3/uL 0.00-0.03 [facility] Platelet mean volume Auto (B ld) [Entitic vol]Ordered By: Paras Gallardo on 06-25-2025 Platelet mean volume (Bld) [Entitic vol] 8.4 fL Low 9.5-13.5 [facility] Platelets Auto (Bld) [#/Vol] Ordered By: Paras Gallardo on 06-25-2025 Platelets (Bld) [#/Vol] 310 10 3/uL 150-450 [facility] RBC Auto (Bld) [#/Vol]Ordere d By: Paras Gallardo on 06-25-2025 RBC (Bld) [#/Vol] 5.23 10 6/uL 4.20-5.40 [facility] Serum or plasma albumin/glob ulin mass ratioOrdered By: Paras Gallardo on 06-25-2025 Albumin/Globulin [Mass ratio] 0.9 {ratio} [facility] Serum or plasma anion gap de terminationOrdered By: Paras Gallardo on 06-25-2025 Anion gap [Moles/Vol] 10.6 mmol/L [facility] Serum or plasma total choles terol/high density lipoprotein (HDL) cholesterol mass ratOrdered By: Paras Gallardo on 06-25-2025 Cholesterol.total/Chol esterol in HDL [Mass ratio] 3.0 {ratio} [facility] Comment on above: 3.3 - 4.4 LOW RISK4. 4 - 7.1 AVERAGE RISK7.1 - 11.0 MODERATE RISK>11.0 HIGH RISK X-ray reportOrdered By: Abdon Martinez on 03-16-2025 Study report [facility] Main [address] [address] XRay Report Signed Patient: Reji Jiang MR#: [id number] : 1945 Acct:[id number] Age/Sex: 79 / F ADM Date: Loc: XDUCLY Room: Type: REG CLI Attending Dr: Joana Manzo AUDITOR APPRAISER Copies to: Joana Manzo APRN~ Ordering Provider: [...] Martinez M.D. 03/16/2025 7:10 PM Dictation Location: [place] [address] Transcribed By: [facility] 03/16/251909 Dictated By: Gigi Martinez MD 03/16/251905 Signed By: 03/16/251909 [facility] Work Phone: XR wrist LT min 3V*on 2024 XR wrist LT min 3V* [facility] [place] [address] XRay Report Signed Patient: Reji Jiang MR#: [id number] : 1945 Acct:[id number] Age/Sex: 79 / F ADM Date: 03/16/25 Loc: XDUCLY Room: Type: REG CLI Attending Dr: Joana Manzo AUDITOR APPRAISER Copies to: Joana Manzo APRN Ordering Provider: [...] Martinez M.D. 03/16/2025 7:10 PM Dictation Location: [facility] Transcribed By: [facility] 03/16/251909 Dictated By: Gigi Martinez MD 03/16/251905 Signed By: 03/16/251909 Normal [facility] Basic Metabolic Panelon 01-14 Anion gap [Moles/Vol] 9.2 mmol/L Normal 6.0-15.0 [facility] Comment on above: Performed By: #### B MING, CBCNO ####[place] [id number] [address] Calcium [Mass/Vol] 9.3 mg/dL Normal 8.6-10.3 [facility] Comment on above: Performed By: #### B MING CBCNO ####[place] [id number] [address] Chloride [Moles/Vol] 101 mmol/L Normal 98-107 [facility] Comment on above: Performed By: #### B MING, CBCNO ####[place] [id number] [facility] CO2 [Moles/Vol] 29.0 mmol/L Normal 21.0-31.0 [facility] Comment on above: Performed By: #### B MING, CBCNO ####[facility] [place] [id number] [facility] Creatinine [Mass/Vol] 0.82 mg/dL Normal 0.60-1.20 [facility] Comment on above: Performed By: #### B MING, CBCNO ####[facility] [place] [address] [place] Creatinine Clr Calc Pharmacy 54.42 Normal [facility] Comment on above: Result Comment: PERF ORMED BY: [facility] [address] [place] [id number] PATHOLOGIST CLE[employer]ER NERI COMBS M.D. Performed By: #### B MING, CBCNO ####[id number] [place] [address] [place] GFR/1.73 sq M.predicted MDRD (S/P/Bld) [Vol rate/Area] mL/min/{1.73_m2} Normal [facility] Comment on above: Performed By: #### B MING, CBCNO ####[place] [address] [place] [id number] [facility] Glucose [Mass/Vol] 154 mg/dL High 70-100 [facility] Comment on above: Result Comment: [place] Glucose Reference Range is dependent on time and content of last meal. Glucose of more than 200 mg/dL in a nonstressed, ambulatory subject supports the diagnosis of Diabetes Mellitus. ADA recommended reference range Performed By: #### B MING, CBCNO ####[place] [address] [address] [place] [id number] [facility] Potassium [Moles/Vol] 4.2 mmol/L Normal 3.5-5.1 [facility] Comment on above: Performed By: #### B MING, CBCNO ####[place] [address] [place] [id number] [facility] Sodium [Moles/Vol] 135 mmol/L Low 136-145 [facility] Comment on above: Performed By: #### B MING, CBCNO ####[place] [address] [address] [place] [id number] [facility] Urea nitrogen [Mass/Vol] 21 mg/dL Normal 7-25 [facility] Comment on above: Performed By: #### B MING, CBCNO ####[place] [phone] [facility] Calcium [Mass/volume] in Ser um or PlasmaOrdered By: Carole Kauffman on 02-05-2025 Calcium [Mass/Vol] Calcium [Mass/volume ] in Serum or Plasma 8.6-10.3 [facility] Carbon dioxide, total [Moles /volume] in Serum or PlasmaOrdered By: Obrobbydaellen Wadeomar on 02-05-2025 CO2 [Moles/Vol] Carbon dioxide, tota l [Moles/volume] in Serum or Plasma 21.0-31.0 [facility] Chloride [Moles/volume] in S nhi or PlasmaOrdered By: Obrobbydaellen Daromar on 02-05-2025 Chloride [Moles/Vol] Chloride [Moles/vol ume] in Serum or Plasma 98-107 [facility] Creatinine [Mass/volume] in Serum or PlasmaOrdered By: Obrobbydah Daromar on 02-05-2025 Creatinine [Mass/Vol] Creatinine [Mass/v olume] in Serum or Plasma 0.60-1.20 [facility] Erythrocyte distribution wid th Auto (RBC) [Ratio]Ordered By: Obrobbydaellen Wadeomar on 02-05-2025 Erythrocyte distribution width (RBC) [Ratio] Erythrocyte distribution width [Ratio] by Automated count 11.9-15.3 [facility] Glucose [Mass/volume] in Ser um or PlasmaOrdered By: Obrobbydaellen Wadeomar on 02-05-2025 Glucose [Mass/Vol] Glucose [Mass/volume ] in Serum or Plasma High 70-100 [facility] Comment on above: ADA recommended refe rence rangeRandom Glucose Reference Range is dependent on time and content of last meal. Glucose of more than 200 mg/dL in a nonstressed, ambulatory subject supports the diagnosis of Diabetes Mellitus. Hematocrit Auto (Bld) [Volum e fraction]Ordered By: Carole Zimmerr on 02-05-2025 Hematocrit (Bld) [Volume fraction] Hematocrit [Volume Fraction] of Blood by Automated count 34.0-46.4 [facility] Hemoglobin [Mass/volume] in BloodOrdered By: Obrobbydaellen Wadeomar on 02-05-2025 Hemoglobin (Bld) [Mass/Vol] Hemoglobin [Mass/volume] in Blood 11.8-15.4 [facility] Hemogram CBC Without Diffon 02-05-2025 Erythrocyte distribution width (RBC) [Ratio] 13.1 % Normal 11.9-15.3 [facility] Comment on above: Performed By: #### B MP, CBCNO ####[place] [id number] [facility] Hematocrit (Bld) [Volume fraction] 44.3 % Normal 34.0-46.4 [facility] Comment on above: Performed By: #### B MP, CBCNO ####[place] [phone] [facility] Hemoglobin (Bld) [Mass/Vol] 14.9 g/dL Normal 11.8-15.4 [facility] Comment on above: Performed By: #### B MP, CBCNO ####[address] MCH (RBC) [Entitic mass] 28.1 pg Normal 24.7-34.3 [facility] Comment on above: Performed By: #### B MP, CBCNO ####[address] MCV (RBC) [Entitic vol] 83.4 fL Normal 80-100 [facility] Comment on above: Performed By: #### B MP, CBCNO ####[address] Mean Corpuscular HGB Conc 33.7 g/dL Normal 32.0-35.0 [facility] Comment on above: Performed By: #### B MP, CBCNO ####[address] Platelet mean volume (Bld) [Entitic vol] 6.7 fL Normal 6.3-10.7 [facility] Comment on above: Result Comment: PERF ORMED BY: [facility] [address] [place] [id number] PATHOLOGIST [employer] NERI COMBS M.D. Performed By: #### B MP, CBCNO ####[address] Platelets (Bld) [#/Vol] 434 10*3/uL Normal 150-450 [facility] Comment on above: Performed By: #### B MP, CBCNO ####[facility] [id number] RBC (Bld) [#/Vol] 5.31 10*6/uL High 3.60-5.00 [facility] Comment on above: Performed By: #### B MP, CBCNO ####[facility] [id number] WBC (Bld) [#/Vol] 16.2 10*3/uL High 3.8-11.6 [facility] Comment on above: Performed By: #### B MP, CBCNO ####[facility] [id number] [address] Leukocytes [#/volume] correc sheila for nucleated erythrocytes in Blood by Automated counOrdered By: Carole Wadeomar on 02-05-2025 WBC corrected for nucl RBC Auto (Bld) [#/Vol] Leukocytes [#/volume] corrected for nucleated erythrocytes in Blood by Automated coun High 3.8-11.6 [facility] MCH Auto (RBC) [Entitic mass ]Ordered By: Obrobbydaellen Wadeomar on 02-05-2025 MCH (RBC) [Entitic mass] MCH [Entitic mass] by Automated count 24.7-34.3 [facility] MCHC Auto (RBC) [Mass/Vol]Or dered By: Obrobbydah Atreo Medicalomar on 02-05-2025 MCHC (RBC) [Mass/Vol] MCHC [Mass/volume] by Automated count 32.0-35.0 [facility] MCV Auto (RBC) [Entitic vol] Ordered By: Obrobbydah Mauroomar on 02-05-2025 MCV (RBC) [Entitic vol] MCV [Entitic volume] by Automated count 80-100 [facility] No Panel InformationOrdered By: Carole Wadeomar on 02-05-2025 Estimated GFR (CKD-EPI) > 60.0 mL/Min [facility] Pharmacy Creatinine Clearance (Chem 54.42 [facility] Platelet mean volume Auto (B ld) [Entitic vol]Ordered By: Obrobbydah Mauroomar on 02-05-2025 Platelet mean volume (Bld) [Entitic vol] Platelet mean volume [Entitic volume] in Blood by Automated count 6.3-10.7 [facility] Platelets Auto (Bld) [#/Vol] Ordered By: Obrobbydaellen Wadeomar on 02-05-2025 Platelets (Bld) [#/Vol] Platelets [#/volume] in Blood by Automated count 150-450 [facility] Potassium [Moles/volume] in Serum or PlasmaOrdered By: Obrobbydaellen Wadeomar on 02-05-2025 Potassium [Moles/Vol] Potassium [Moles/v olume] in Serum or Plasma 3.5-5.1 [facility] RBC Auto (Bld) [#/Vol]Ordere d By: Carole Wadeomar on 02-05-2025 RBC (Bld) [#/Vol] Erythrocytes [#/volu me] in Blood by Automated count High 3.60-5.00 [facility] Serum or plasma anion gap de terminationOrdered By: Carole Zimmerr on 02-05-2025 Anion gap [Moles/Vol] Serum or plasma an ion gap determination 6.0-15.0 [facility] Sodium [Moles/volume] in Ser um or PlasmaOrdered By: Carole Wadeomar on 02-05-2025 Sodium [Moles/Vol] Sodium [Moles/volume ] in Serum or Plasma Low 136-145 [facility] Urea nitrogen [Mass/volume] in Serum or PlasmaOrdered By: Obchas Wadeomar on 02-05-2025 Urea nitrogen [Mass/Vol] Urea nitrogen [Mass/volume] in Serum or Plasma 06-08 [facility] Alanine aminotransferase [En zymatic activity/volume] in Serum or PlasmaOrdered By: Obrobbydah Mauroomar on 02-02-2025 ALT [Catalytic activity/Vol] Alanine aminotransferase [Enzymatic activity/volume] in Serum or Plasma [facility] Albumin [Mass/volume] in Ser um or Plasma by Bromocresol green (BCG) dye binding methoOrdered By: Carole Wadeomar on 02-02-2025 Albumin BCG dye [Mass/Vol] Albumin [Mass/volume] in Serum or Plasma by Bromocresol green (BCG) dye binding metho 3.5-5.7 [facility] Alkaline phosphatase [Enzyma tic activity/volume] in Serum or PlasmaOrdered By: Carole Kauffman on 02-02-2025 ALP [Catalytic activity/Vol] Alkaline phosphatase [Enzymatic activity/volume] in Serum or Plasma 34-104 [facility] Aspartate aminotransferase [ Enzymatic activity/volume] in Serum or PlasmaOrdered By: Obchas Zimmerr on 02-02-2025 AST [Catalytic activity/Vol] Aspartate aminotransferase [Enzymatic activity/volume] in Serum or Plasma Low 13-39 [facility] Basophils Auto (Bld) [#/Vol] Ordered By: Carole Kauffman on 02-02-2025 Basophils (Bld) [#/Vol] Automated basophil count 0.0-0.2 [facility] Basophils/100 WBC Auto (Bld) Ordered By: Carole Zimmerr on 02-02-2025 Basophils/100 WBC (Bld) Automated basophil % . [facility] Bilirubin.total [Mass/volume ] in Serum or PlasmaOrdered By: Carole Zimmerr on 02-02-2025 Bilirubin [Mass/Vol] Bilirubin.total [Mass/volume] in Serum or Plasma 0.3-1.0 [facility] Complete Blood Count Auto Di ffon 02-02-2025 Basophils (Bld) [#/Vol] 0.0 10*3/uL Normal 0.0-0.2 [facility] Comment on above: Result Comment: PERF ORMED BY: [place] [address] PATHOLOGIST [employer] NERI COMBS M.D. Performed By: #### C MP, CBC #### [facility] [address] [place] [address] [place] Basophils/100 WBC (Bld) 0.5 % Normal . [facility] Comment on above: Performed By: #### C MP, CBC #### [facility] [address] [place] [address] [place] Eosinophils (Bld) [#/Vol] 0.0 10*3/uL Normal 0.0-0.45 [facility] Comment on above: Performed By: #### C MP, CBC #### [address] Eosinophils/100 WBC (Bld) 0.0 % Normal . [facility] Comment on above: Performed By: #### C MP, CBC #### [address] Erythrocyte distribution width (RBC) [Ratio] 13.2 % Normal 11.9-15.3 [facility] Comment on above: Performed By: #### C MP, CBC #### [address] Hematocrit (Bld) [Volume fraction] 41.4 % Normal 34.0-46.4 [facility] Comment on above: Performed By: #### C MP, CBC #### [address] Hemoglobin (Bld) [Mass/Vol] 14.6 g/dL Normal 11.8-15.4 [facility] Comment on above: Performed By: #### C MP, CBC #### [address] Lymphocytes (Bld) [#/Vol] 0.6 10*3/uL Low 1.00-4.8 [facility] Comment on above: Performed By: #### C MP, CBC #### [address] Lymphocytes/100 WBC (Bld) 6.5 % Normal . [facility] Comment on above: Performed By: #### C MP, CBC #### [address] MCH (RBC) [Entitic mass] 29.1 pg Normal 24.7-34.3 [facility] Comment on above: Performed By: #### C MP, CBC #### [address] MCV (RBC) [Entitic vol] 82.7 fL Normal 80-100 [facility] Comment on above: Performed By: #### C MP, CBC #### [address] Mean Corpuscular HGB Conc 35.2 g/dL High 32.0-35.0 [facility] Comment on above: Performed By: #### C MP, CBC #### [address] Monocytes (Bld) [#/Vol] 0.1 10*3/uL Normal 0.0-0.8 [facility] Comment on above: Performed By: #### C MP, CBC #### [address] Monocytes/100 WBC (Bld) 1.4 % Normal . [facility] Comment on above: Performed By: #### C MP, CBC #### [address] Neutrophils (Bld) [#/Vol] 8.9 10*3/uL High 1.8-7.7 [facility] Comment on above: Performed By: #### C MP, CBC #### [address] Neutrophils/100 WBC (Bld) 91.6 % Normal . [facility] Comment on above: Performed By: #### C MP, CBC #### [address] NRBC% 0.0 /100{WBC} Normal 0-0.5 [facility] Comment on above: Performed By: #### C MP, CBC #### [address] Platelet mean volume (Bld) [Entitic vol] 6.5 fL Normal 6.3-10.7 [facility] Comment on above: Performed By: #### C MP, CBC #### [place] [address] [place] Platelets (Bld) [#/Vol] 386 10*3/uL Normal 150-450 [facility] Comment on above: Performed By: #### C MP, CBC #### [address] RBC (Bld) [#/Vol] 5.01 10*6/uL High 3.60-5.00 [facility] Comment on above: Performed By: #### C MP, CBC #### [address] WBC (Bld) [#/Vol] 9.7 10*3/uL Normal 3.8-11.6 [facility] Comment on above: Performed By: #### C MP, CBC #### [address] Comprehensive Metabolic Pane laura 02-02-2025 Albumin [Mass/Vol] 3.8 g/dL Normal 3.5-5.7 [facility] Comment on above: Performed By: #### C MP, CBC #### [address] Albumin/Globulin [Mass ratio] 1.2 {ratio} Normal [facility] Comment on above: Performed By: #### C MP, CBC #### [address] ALP [Catalytic activity/Vol] 84 U/L Normal 34-104 [facility] Comment on above: Performed By: #### C MP, CBC #### [address] ALT [Catalytic activity/Vol] 7 U/L Normal 7-52 [facility] Comment on above: Performed By: #### C MP, CBC #### [address] Anion gap [Moles/Vol] 11.4 mmol/L Normal 6.0-15.0 [facility] Comment on above: Performed By: #### C MP, CBC #### [address] AST [Catalytic activity/Vol] 12 U/L Low 13-39 [facility] Comment on above: Performed By: #### C MP, CBC #### [place] [address] [place] Bilirubin [Mass/Vol] 0.4 mg/dL Normal 0.3-1.0 [facility] Comment on above: Performed By: #### C MP, CBC #### [place] [address] [place] Calcium [Mass/Vol] 9.0 mg/dL Normal 8.6-10.3 [facility] Comment on above: Performed By: #### C MP, CBC #### [address] Chloride [Moles/Vol] 101 mmol/L Normal 98-107 [facility] Comment on above: Performed By: #### C MP, CBC #### [address] CO2 [Moles/Vol] 27.5 mmol/L Normal 21.0-31.0 [facility] Comment on above: Performed By: #### C MP, CBC #### [place] [address] [place] Creatinine [Mass/Vol] 0.65 mg/dL Normal 0.60-1.20 [facility] Comment on above: Performed By: #### C MP, CBC #### [place] [address] [place] Creatinine Clr Calc Pharmacy 54.61 Normal [facility] Comment on above: Result Comment: PERF ORMED BY: [place] [address] PATHOLOGIST [employer] NERI COMBS M.D. Performed By: #### C MP, CBC #### [place] [address] [place] GFR/1.73 sq M.predicted MDRD (S/P/Bld) [Vol rate/Area] mL/min/{1.73_m2} Normal [facility] Comment on above: Performed By: #### C MP, CBC #### [address] [address] [place] Globulin (S) [Mass/Vol] 3.2 g/dL Normal [facility] Comment on above: Performed By: #### C MP, CBC #### [address] Glucose [Mass/Vol] 191 mg/dL High 70-100 [facility] Comment on above: Result Comment: [facility] Glucose Reference Range is dependent on time and content of last meal. Glucose of more than 200 mg/dL in a nonstressed, ambulatory subject supports the diagnosis of Diabetes Mellitus. ADA recommended reference range Performed By: #### C MP, CBC #### [address] Potassium [Moles/Vol] 3.9 mmol/L Normal 3.5-5.1 [facility] Comment on above: Performed By: #### C MP, CBC #### [address] Protein [Mass/Vol] 7.0 g/dL Normal 6.4-8.9 [facility] Comment on above: Performed By: #### C MP, CBC #### [address] Sodium [Moles/Vol] 136 mmol/L Normal 136-145 [facility] Comment on above: Performed By: #### C MP, CBC #### [address] Urea nitrogen [Mass/Vol] 12 mg/dL Normal 7-25 [facility] Comment on above: Performed By: #### C MP, CBC #### [place] [address] [place] Eosinophils Auto (Bld) [#/Vo l]Ordered By: Carole Kauffman on 02-02-2025 Eosinophils (Bld) [#/Vol] Automated eosinophil count 0.0-0.45 [facility] Eosinophils/100 WBC Auto (Bl d)Ordered By: Obchas Zimmerr on 02-02-2025 Eosinophils/100 WBC (Bld) Automated eosinophil % . [facility] Globulin Calc (S) [Mass/Vol] Ordered By: Obaydah Daromar on 02-02-2025 Globulin (S) [Mass/Vol] Serum globulin measurement by calculation (mass/volume) [facility] Lymphocytes Auto (Bld) [#/Vo l]Ordered By: Obaydah Daromar on 02-02-2025 Lymphocytes (Bld) [#/Vol] Lymphocytes [#/volume] in Blood by Automated count Low 1.00-4.8 [facility] Lymphocytes/100 WBC Auto (Bl d)Ordered By: Obaydah Daromar on 02-02-2025 Lymphocytes/100 WBC (Bld) Lymphocytes/100 leukocytes in Blood by Automated count . [facility] Monocytes Auto (Bld) [#/Vol] Ordered By: Obaydah Daromar on 02-02-2025 Monocytes (Bld) [#/Vol] Automated blood monocyte count 0.0-0.8 [facility] Monocytes/100 WBC Auto (Bld) Ordered By: Obaydah Daromar on 02-02-2025 Monocytes/100 WBC (Bld) Automated monocyte % . [facility] Neutrophils Auto (Bld) [#/Vo l]Ordered By: Obaydah Daromar on 02-02-2025 Neutrophils (Bld) [#/Vol] Neutrophils [#/volume] in Blood by Automated count High 1.8-7.7 [facility] Neutrophils/100 WBC Auto (Bl d)Ordered By: Obaydah Daromar on 02-02-2025 Neutrophils/100 WBC (Bld) Automated neutrophil % . [facility] Nucleated erythrocytes [Pres ence] in Blood by Automated countOrdered By: Obrobbydah Daromar on 02-02-2025 Nucleated RBC Auto Ql (Bld) Nucleated erythrocytes [Presence] in Blood by Automated count 0-0.5 [facility] Protein [Mass/volume] in Ser um or PlasmaOrdered By: Obaydah Daromar on 02-02-2025 Protein [Mass/Vol] Protein [Mass/volume ] in Serum or Plasma 6.4-8.9 [facility] Serum or plasma albumin/glob ulin mass ratioOrdered By: Obchas Wadeomar on 02-02-2025 Albumin/Globulin [Mass ratio] Serum or plasma albumin/globulin mass ratio [facility] WBC Auto (Bld) [#/Vol]Ordere d By: Obchas Wadeomar on 02-02-2025 WBC (Bld) [#/Vol] Leukocytes [#/volume ] in Blood by Automated count 3.8-11.6 [facility] Appearance of UrineOrdered B y: No Jones on 02-01-2025 Appearance (U) Urine appearance Abnormal Clear [facility] B-Type Natriuretic Peptideon 02-01-2025 Natriuretic peptide B (Bld) [Mass/Vol] 84.0 pg/mL Normal 5-100 [facility] Comment on above: Result Comment: PERF ORMED BY: [facility] [address] [place] [address] PATHOLOGIST [employer] NERI COMBS M.D. Performed By: #### C K, BNP, CBC, BMP, DDIMER, HS TROP, PT ####[facility] [id number] [place] [address] [place] Bacteria [Presence] in Urine by AutomatedOrdered By: No Robert on 02-01-2025 Bacteria Auto Ql (U) Bacteria [Presence] in Urine by Automated None Seen [facility] Basic Metabolic Panelon 01-14 Anion gap [Moles/Vol] 10.1 mmol/L Normal 6.0-15.0 [facility] Comment on above: Performed By: #### C K, BNP, CBC, BMP, DDIMER, HS TROP, PT #### [facility] [address] [place] [address] [place] Calcium [Mass/Vol] 9.3 mg/dL Normal 8.6-10.3 [facility] Comment on above: Performed By: #### C K, BNP, CBC, BMP, DDIMER, HS TROP, PT #### [facility] [address] [place] [id number] [place] Chloride [Moles/Vol] 101 mmol/L Normal 98-107 [facility] Comment on above: Performed By: #### C K, BNP, CBC, BMP, DDIMER, HS TROP, PT #### [facility] [address] CO2 [Moles/Vol] 30.7 mmol/L Normal 21.0-31.0 [facility] Comment on above: Performed By: #### C K, BNP, CBC, BMP, DDIMER, HS TROP, PT #### [facility] [address] Creatinine [Mass/Vol] 0.63 mg/dL Normal 0.60-1.20 [facility] Comment on above: Performed By: #### C K, BNP, CBC, BMP, DDIMER, HS TROP, PT #### [facility] [address] [place] [address] [place] Creatinine Clr Calc Pharmacy 53.67 Normal [facility] Comment on above: Result Comment: PERF ORMED BY: [place] [address] PATHOLOGIST [employer] NERI COMBS M.D. Performed By: #### C K, BNP, CBC, BMP, DDIMER, HS TROP, PT #### [address] GFR/1.73 sq M.predicted MDRD (S/P/Bld) [Vol rate/Area] mL/min/{1.73_m2} Normal [facility] Comment on above: Performed By: #### C K, BNP, CBC, BMP, DDIMER, HS TROP, PT #### [facility] [address] Glucose [Mass/Vol] 127 mg/dL High 70-100 [facility] Comment on above: Result Comment: [place] Glucose Reference Range is dependent on time and content of last meal. Glucose of more than 200 mg/dL in a nonstressed, ambulatory subject supports the diagnosis of Diabetes Mellitus. ADA recommended reference range Performed By: #### C K, BNP, CBC, BMP, DDIMER, HS TROP, PT #### [facility] [address] Potassium [Moles/Vol] 3.8 mmol/L Normal 3.5-5.1 [facility] Comment on above: Performed By: #### C K, BNP, CBC, BMP, DDIMER, HS TROP, PT #### [facility] [address] Sodium [Moles/Vol] 138 mmol/L Normal 136-145 [facility] Comment on above: Performed By: #### C K, BNP, CBC, BMP, DDIMER, HS TROP, PT #### [facility] [address] Urea nitrogen [Mass/Vol] 7 mg/dL Normal 7-25 [facility] Comment on above: Performed By: #### C K, BNP, CBC, BMP, DDIMER, HS TROP, PT #### [facility] [address] Basophils Auto (Bld) [#/Vol] Ordered By: No Jones on 02-01-2025 Basophils (Bld) [#/Vol] Automated basophil count 0.0-0.2 [facility] Basophils/100 WBC Auto (Bld) Ordered By: No Jones on 02-01-2025 Basophils/100 WBC (Bld) Automated basophil % . [facility] Bilirubin Test strip Ql (U)O rdered By: No Jones on 02-01-2025 Bilirubin Ql (U) Bilirubin.total [Pre sence] in Urine by Test strip Negative [facility] BioFire Not Detectedon 02-01 BioFire Not Detected Not detected Normal Not Detecte [facility] Comment on above: Result Comment: This is a duplicate RP2.1 COVID (PCR) result to be used for statistical tracking purpose only. PERFORMED BY: [facility] [address] [place] [address] PATHOLOGIST CLEANER AND POLISHER NERI COMBS M.D. Performed By: #### B IOFIRECOVNOTDE, RESP PANEL UPP. ####[facility] [id number] COVID-19 Detected/Not Detect edOrdered By: No Jones on 02-01-2025 SARS-CoV-2 (COVID-19) RNA UMESH+non-probe Ql (Nph) Not detected Not Detecte [facility] Comment on above: This is a duplicate RP2.1 COVID (PCR) result to be used for statistical tracking purpose only. Calcium [Mass/volume] in Ser um or PlasmaOrdered By: No Jones on 02-01-2025 Calcium [Mass/Vol] Calcium [Mass/volume ] in Serum or Plasma 8.6-10.3 [facility] Carbon dioxide, total [Moles /volume] in Serum or PlasmaOrdered By: No Jones on 02-01-2025 CO2 [Moles/Vol] Carbon dioxide, tota l [Moles/volume] in Serum or Plasma 21.0-31.0 [facility] Casts [Presence] in Urine by AutomatedOrdered By: No Jones on 02-01-2025 Casts Auto Ql (U) Casts [Presence] in Urine by Automated High None Seen [facility] Chloride [Moles/volume] in S nhi or PlasmaOrdered By: No Jones on 02-01-2025 Chloride [Moles/Vol] Chloride [Moles/vol ume] in Serum or Plasma 98-107 [facility] Color Auto (U)Ordered By: Zunilda Jones on 02-01-2025 Color (U) Color of Urine by Auto Yellow [facility] Blood Count Auto Di ffon 02-01-2025 Basophils (Bld) [#/Vol] 0.2 10*3/uL Normal 0.0-0.2 [facility] Comment on above: Result Comment: PERF ORMED BY: [place] [address] PATHOLOGIST CLE[employer]ER [employer]ER NERI COMBS M.D. Performed By: #### C K, BNP, CBC, BMP, DDIMER, HS TROP, PT #### [address] Basophils/100 WBC (Bld) 1.7 % Normal . [facility] Comment on above: Performed By: #### C K, BNP, CBC, BMP, DDIMER, HS TROP, PT #### [address] Eosinophils (Bld) [#/Vol] 0.1 10*3/uL Normal 0.0-0.45 [facility] Comment on above: Performed By: #### C K, BNP, CBC, BMP, DDIMER, HS TROP, PT #### [place] [address] [place] Eosinophils/100 WBC (Bld) 1.3 % Normal . [facility] Comment on above: Performed By: #### C K, BNP, CBC, BMP, DDIMER, HS TROP, PT #### [address] Erythrocyte distribution width (RBC) [Ratio] 13.1 % Normal 11.9-15.3 [facility] Comment on above: Performed By: #### C K, BNP, CBC, BMP, DDIMER, HS TROP, PT #### [address] Hematocrit (Bld) [Volume fraction] 41.8 % Normal 34.0-46.4 [facility] Comment on above: Performed By: #### C K, BNP, CBC, BMP, DDIMER, HS TROP, PT #### [address] Hemoglobin (Bld) [Mass/Vol] 14.6 g/dL Normal 11.8-15.4 [facility] Comment on above: Performed By: #### C K, BNP, CBC, BMP, DDIMER, HS TROP, PT #### [place] [address] [place] Lymphocytes (Bld) [#/Vol] 1.8 10*3/uL Normal 1.00-4.8 [facility] Comment on above: Performed By: #### C K, BNP, CBC, BMP, DDIMER, HS TROP, PT #### [place] [address] [place] Lymphocytes/100 WBC (Bld) 16.6 % Normal . [facility] Comment on above: Performed By: #### C K, BNP, CBC, BMP, DDIMER, HS TROP, PT #### [address] MCH (RBC) [Entitic mass] 28.9 pg Normal 24.7-34.3 [facility] Comment on above: Performed By: #### C K, BNP, CBC, BMP, DDIMER, HS TROP, PT #### [address] MCV (RBC) [Entitic vol] 82.7 fL Normal 80-100 [facility] Comment on above: Performed By: #### C K, BNP, CBC, BMP, DDIMER, HS TROP, PT #### [address] Mean Corpuscular HGB Conc 34.9 g/dL Normal 32.0-35.0 [facility] Comment on above: Performed By: #### C K, BNP, CBC, BMP, DDIMER, HS TROP, PT #### [address] Monocytes (Bld) [#/Vol] 0.8 10*3/uL Normal 0.0-0.8 [facility] Comment on above: Performed By: #### C K, BNP, CBC, BMP, DDIMER, HS TROP, PT #### [address] Monocytes/100 WBC (Bld) 17.49 % Normal 0.00-20.00 [facility] Comment on above: Performed By: #### C K, BNP, CBC, BMP, DDIMER, HS TROP, PT #### [address] Monocytes/100 WBC (Bld) 7.0 % Normal . [facility] Comment on above: Performed By: #### C K, BNP, CBC, BMP, DDIMER, HS TROP, PT #### [address] Neutrophils (Bld) [#/Vol] 8.1 10*3/uL High 1.8-7.7 [facility] Comment on above: Performed By: #### C K, BNP, CBC, BMP, DDIMER, HS TROP, PT #### [address] Neutrophils/100 WBC (Bld) 73.4 % Normal . [facility] Comment on above: Performed By: #### C K, BNP, CBC, BMP, DDIMER, HS TROP, PT #### [address] NRBC% 0.1 /100{WBC} Normal 0-0.5 [facility] Comment on above: Performed By: #### C K, BNP, CBC, BMP, DDIMER, HS TROP, PT #### [address] Platelet mean volume (Bld) [Entitic vol] 6.3 fL Normal 6.3-10.7 [facility] Comment on above: Performed By: #### C K, BNP, CBC, BMP, DDIMER, HS TROP, PT #### [address] Platelets (Bld) [#/Vol] 382 10*3/uL Normal 150-450 [facility] Comment on above: Performed By: #### C K, BNP, CBC, BMP, DDIMER, HS TROP, PT #### [address] RBC (Bld) [#/Vol] 5.06 10*6/uL High 3.60-5.00 [facility] Comment on above: Performed By: #### C K, BNP, CBC, BMP, DDIMER, HS TROP, PT #### [address] WBC (Bld) [#/Vol] 11.1 10*3/uL Normal 3.8-11.6 [facility] Comment on above: Performed By: #### C K, BNP, CBC, BMP, DDIMER, HS TROP, PT #### [address] Creatine Kinaseon 02-01-2025 CK [Catalytic activity/Vol] 26 U/L Low 30-223 [facility] Comment on above: Performed By: #### C K, BNP, CBC, BMP, DDIMER, HS TROP, PT ####[facility] [place] [address] [facility] Creatine kinase [Enzymatic a ctivity/volume] in Serum or PlasmaOrdered By: No Jones on 02-01-2025 CK [Catalytic activity/Vol] Creatine kinase [Enzymatic activity/volume] in Serum or Plasma Low 30-223 [facility] Creatinine [Mass/volume] in Serum or PlasmaOrdered By: No Jones on 02-01-2025 Creatinine [Mass/Vol] Creatinine [Mass/v olume] in Serum or Plasma 0.60-1.20 [facility] D-Dimer High Sensitivityon 0 02-01-2025 D-Dimer High Sensitivity 220 ng/mL Normal 0-243 [facility] Comment on above: Result Comment: [...] coagulation studies. Please contact the laboratory at [phone] for redraw instructions. PERFORMED BY: [facility] [address] [place] [address] PATHOLOGIST CLE[employer]ER [employer]ER NERI COMBS M.D. Performed By: #### C K, BNP, CBC, BMP, DDIMER, HS TROP, PT ####[facility] [place] [address] [facility] Dipstick and Microscopicon 0 02-01-2025 Appearance (U) Cloudy Critically abnormal Clear [facility] Comment on above: Order Comment: Name Collection Type:: Clean-Voided Midstream Performed By: #### A DDONUAPLUS, CUU ####[address] [address] [facility] Bacteria,Urine Rare Normal None Seen [facility] Comment on above: Order Comment: Name Collection Type:: Clean-Voided Midstream Performed By: #### A DDONUAPLUS, CUU ####[address] [address] [facility] Bilirubin,Urine Negative Normal Negative [facility] Comment on above: Order Comment: Name Collection Type:: Clean-Voided Midstream Performed By: #### A DDONUAPLUS, CUU ####[address] [address] [facility] Color (U) Yellow Normal Yellow [facility] Comment on above: Order Comment: Name Collection Type:: Clean-Voided Midstream Performed By: #### A DDONUAPLUS, CUU ####[address] [address] [facility] Glucose Ql (U) Normal Normal Normal [facility] Comment on above: Order Comment: Name Collection Type:: Clean-Voided Midstream Performed By: #### A DDONUAPLUS, CUU ####[address] [address] [facility] Hyaline Casts,Urine None Normal 0-8 [facility] Comment on above: Order Comment: Name Collection Type:: Clean-Voided Midstream Performed By: #### A DDONUAPLUS, CUU ####[address] [address] [facility] Ketones Ql (U) Negative Normal Negative [facility] Comment on above: Order Comment: Name Collection Type:: Clean-Voided Midstream Performed By: #### A DDONUAPLUS, CUU ####[address] [address] [facility] Leukocyte esterase Test strip Ql (U) 4+ High Negative [facility] Comment on above: Order Comment: Name Collection Type:: Clean-Voided Midstream Performed By: #### A DDONUAPLUS, CUU ####[address] [address] [place] Mucus,Urine Rare Normal [facility] Comment on above: Order Comment: Name Collection Type:: Clean-Voided Midstream Result Comment: PERF ORMED BY: [facility] [address] [place] [address] PATHOLOGIST CLE[employer]ER [employer] POLISHER NERI COMBS M.D. Performed By: #### A DDONUAPLUS, CUU ####[address] [address] [place] Nitrite,Urine Negative Normal Negative [facility] Comment on above: Order Comment: Name Collection Type:: Clean-Voided Midstream Performed By: #### A DDONUAPLUS, CUU ####[address] [address] [facility] Occult Blood,Urine Negative Normal Negative [facility] Comment on above: Order Comment: Name Collection Type:: Clean-Voided Midstream Result Comment: PERF ORMED BY: [facility] [address] [place] [address] PATHOLOGIST CLE[employer]ER [employer]ER NERI COMBS M.D. Performed By: #### A DDONUAPLUS, CUU ####[address] [address] [facility] Other Casts,Urine 1-2 High None Seen [facility] Comment on above: Order Comment: Name Collection Type:: Clean-Voided Midstream Performed By: #### A DDONUAPLUS, CUU ####[address] [address] [place] pH (U) 6.5 [pH] Normal 5.0-9.0 [facility] Comment on above: Order Comment: Name Collection Type:: Clean-Voided Midstream Performed By: #### A DDONUAPLUS, CUU ####[address] [address] [facility] Protein (U) [Mass/Vol] 70 mg/dL High Negative [facility] Comment on above: Order Comment: Name Collection Type:: Clean-Voided Midstream Performed By: #### A DDONUAPLUS, CUU ####[address] RBC,Urine 5-9 High 0-4 [facility] Comment on above: Order Comment: Name Collection Type:: Clean-Voided Midstream Performed By: #### A DDONUAPLUS, CUU ####[address] Specificy [place],Urine 1.014 Normal 1.001-1.03 0 [facility] Comment on above: Order Comment: Name Collection Type:: Clean-Voided Midstream Performed By: #### A DDONUAPLUS, CUU ####[address] Squamous Epithelial Cell,Urine 1-2 Normal 0-2 [facility] Comment on above: Order Comment: Name Collection Type:: Clean-Voided Midstream Performed By: #### A DDONUAPLUS, CUU ####[address] Urobilinogen,Urine Normal Normal Normal [facility] Comment on above: Order Comment: Name Collection Type:: Clean-Voided Midstream Performed By: #### A DDONUAPLUS, CUU ####[address] WBC CLUMP, Urine Few High None Seen [facility] Comment on above: Order Comment: Name Collection Type:: Clean-Voided Midstream Performed By: #### A DDONUAPLUS, CUU ####[address] WBC,Urine 50-100 High 0-4 [facility] Comment on above: Order Comment: Name Collection Type:: Clean-Voided Midstream Performed By: #### A DDONUAPLUS, CUU ####[address] ECG 12 lead ECGon 02-01-2025 ECG 12 lead ECG [facility] [address] Electrocardiograph Report Signed Patient: Reji Jiang MR#: [id number] : 1945 Acct:[id number] Age/Sex: 79 / F ADM Date: 02/01/25 Loc: Room: [address] [place] [address] Type: ADM IN Attending Dr: Carole Kauffman [...] ECGs available Confirmed by No Jones MD ([id number]) on 02/02/2025 12:54:02 AM Referred By: Electronically Signed By: No Jones MD Transcribed By: MUS Signed By No Jones MD 01/14 12/09 0054 Normal [facility] Eosinophils Auto (Bld) [#/Vo l]Ordered By: No Jones on 02-01-2025 Eosinophils (Bld) [#/Vol] Automated eosinophil count 0.0-0.45 [facility] Eosinophils/100 WBC Auto (Bl d)Ordered By: No Jones on 02-01-2025 Eosinophils/100 WBC (Bld) Automated eosinophil % . [facility] Epithelial cells.squamous [# /area] in Urine sediment by Automated countOrdered By: No Jones on 02-01-2025 Epithelial cells.squamous Auto (Urine sed) [#/Area] Epithelial cells.squamous [#/area] in Urine sediment by Automated count 0-2 [facility] Erythrocyte distribution wid th Auto (RBC) [Ratio]Ordered By: No Jones on 02-01-2025 Erythrocyte distribution width (RBC) [Ratio] Erythrocyte distribution width [Ratio] by Automated count 11.9-15.3 [facility] Erythrocytes [#/area] in Uri ne sediment by Automated countOrdered By: No Jones on 02-01-2025 RBC Auto (Urine sed) [#/Area] Erythrocytes [#/area] in Urine sediment by Automated count High 0-4 [facility] Fibrin D-dimer [Presence] in Platelet poor plasma by Latex agglutinationOrdered By: No Jones on 02-01-2025 Fibrin D-dimer [place] Ql (PPP) Fibrin D-dimer [Presence] in Platelet poor plasma by Latex agglutination 0-243 [facility] Comment on above: The reference range for [...] coagulation studies. Please contact the laboratory at [phone] for redraw instructions. Glucose [Mass/volume] in Ser um or PlasmaOrdered By: No Jones on 02-01-2025 Glucose [Mass/Vol] Glucose [Mass/volume ] in Serum or Plasma High 70-100 [facility] Comment on above: ADA recommended refe rence rangeRandom Glucose Reference Range is dependent on time and content of last meal. Glucose of more than 200 mg/dL in a nonstressed, ambulatory subject supports the diagnosis of Diabetes Mellitus. Glucose [Mass/volume] in Uri ne by Test stripOrdered By: No Jones on 02-01-2025 Glucose Test strip (U) [Mass/Vol] Glucose [Mass/volume] in Urine by Test strip Normal [facility] Hematocrit Auto (Bld) [Volum e fraction]Ordered By: No Jones on 02-01-2025 Hematocrit (Bld) [Volume fraction] Hematocrit [Volume Fraction] of Blood by Automated count 34.0-46.4 [facility] Hemoglobin Test strip Ql (U) Ordered By: No Jones on 02-01-2025 Hemoglobin Ql (U) Hemoglobin [Presence ] in Urine by Test strip Negative [facility] Hemoglobin [Mass/volume] in BloodOrdered By: No Jones on 02-01-2025 Hemoglobin (Bld) [Mass/Vol] Hemoglobin [Mass/volume] in Blood 11.8-15.4 [facility] Hyaline casts [#/area] in Ur ine sediment by Automated countOrdered By: No Jones on 02-01-2025 Hyaline casts Auto (Urine sed) [#/Area] Hyaline casts [#/area] in Urine sediment by Automated count 0-8 [facility] INR in Platelet poor plasma by Coagulation assayOrdered By: No Jones on 02-01-2025 INR Coag (PPP) [Relative time] INR in Platelet poor plasma by Coagulation assay [facility] Comment on above: INR Therapeutic Rang e [...] i n Urine by Test strip Negative [facility] Leukocyte clumps [Presence] in Urine by AutomatedOrdered By: No Jones on 02-01-2025 Leukocyte clumps Auto Ql (U) Leukocyte clumps [Presence] in Urine by Automated High None Seen [facility] Leukocyte esterase [Presence ] in Urine by Test stripOrdered By: No Jones on 02-01-2025 Leukocyte esterase Test strip Ql (U) Leukocyte esterase [Presence] in Urine by Test strip High Negative [facility] Leukocytes [#/area] in Urine sediment by Automated countOrdered By: No Jones on 02-01-2025 WBC Auto (Urine sed) [#/Area] Leukocytes [#/area] in Urine sediment by Automated count High 0-4 [facility] Leukocytes [#/volume] correc sheila for nucleated erythrocytes in Blood by Automated counOrdered By: No Jones on 02-01-2025 WBC corrected for nucl RBC Auto (Bld) [#/Vol] Leukocytes [#/volume] corrected for nucleated erythrocytes in Blood by Automated coun 3.8-11.6 [facility] Lymphocytes Auto (Bld) [#/Vo l]Ordered By: No Jones on 02-01-2025 Lymphocytes (Bld) [#/Vol] Lymphocytes [#/volume] in Blood by Automated count 1.00-4.8 [facility] Lymphocytes/100 WBC Auto (Bl d)Ordered By: No Jones on 02-01-2025 Lymphocytes/100 WBC (Bld) Lymphocytes/100 leukocytes in Blood by Automated count . [facility] MCH Auto (RBC) [Entitic mass ]Ordered By: No Jones on 02-01-2025 MCH (RBC) [Entitic mass] MCH [Entitic mass] by Automated count 24.7-34.3 [facility] MCHC Auto (RBC) [Mass/Vol]Or dered By: No Jones on 02-01-2025 MCHC (RBC) [Mass/Vol] MCHC [Mass/volume] by Automated count 32.0-35.0 [facility] MCV Auto (RBC) [Entitic vol] Ordered By: No Jones on 02-01-2025 MCV (RBC) [Entitic vol] MCV [Entitic volume] by Automated count 80-100 [facility] Monocyte distribution width [Entitic volume] in Blood by AutomatedOrdered By: No Jones on 02-01-2025 Monocyte distribution width Auto (Bld) [Entitic vol] Monocyte distribution width [Entitic volume] in Blood by Automated 0.00-20.00 [facility] Monocytes Auto (Bld) [#/Vol] Ordered By: No Jones on 02-01-2025 Monocytes (Bld) [#/Vol] Automated blood monocyte count 0.0-0.8 [facility] Monocytes/100 WBC Auto (Bld) Ordered By: No Jones on 02-01-2025 Monocytes/100 WBC (Bld) Automated monocyte % . [facility] Mucus [Presence] in Urine by AutomatedOrdered By: No Jones on 02-01-2025 Mucus Auto Ql (U) Mucus [Presence] in Urine by Automated [facility] Natriuretic peptide B [Mass/ Vol]Ordered By: No Jones on 02-01-2025 Natriuretic peptide B (Bld) [Mass/Vol] BNP ser/plas 5-100 [facility] Neutrophils Auto (Bld) [#/Vo l]Ordered By: oN Jones on 02-01-2025 Neutrophils (Bld) [#/Vol] Neutrophils [#/volume] in Blood by Automated count High 1.8-7.7 [facility] Neutrophils/100 WBC Auto (Bl d)Ordered By: No Jones on 02-01-2025 Neutrophils/100 WBC (Bld) Automated neutrophil % . [facility] Nitrite Test strip Ql (U)Ord ered By: No Jones on 02-01-2025 Nitrite Ql (U) Nitrite [Presence] i n Urine by Test strip Negative [facility] No Panel InformationOrdered By: No Jones on 02-01-2025 Estimated GFR (CKD-EPI) > 60.0 mL/Min [facility] Pharmacy Creatinine Clearance (Chem 53.67 [facility] Nucleated erythrocytes [Pres ence] in Blood by Automated countOrdered By: No Jones on 02-01-2025 Nucleated RBC Auto Ql (Bld) Nucleated erythrocytes [Presence] in Blood by Automated count 0-0.5 [facility] Platelet mean volume Auto (B ld) [Entitic vol]Ordered By: No Jones on 02-01-2025 Platelet mean volume (Bld) [Entitic vol] Platelet mean volume [Entitic volume] in Blood by Automated count 6.3-10.7 [facility] Platelets Auto (Bld) [#/Vol] Ordered By: No Jones on 02-01-2025 Platelets (Bld) [#/Vol] Platelets [#/volume] in Blood by Automated count 150-450 [facility] Potassium [Moles/volume] in Serum or PlasmaOrdered By: No Jones on 02-01-2025 Potassium [Moles/Vol] Potassium [Moles/v olume] in Serum or Plasma 3.5-5.1 [facility] Protein Test strip (U) [Mass /Vol]Ordered By: No Jones on 02-01-2025 Protein (U) [Mass/Vol] Protein [Mass/vol ume] in Urine by Test strip High Negative [facility] Prothrombin Time INRon 02-01 INR Coag (PPP) [Relative time] 1.0 {INR} Normal [facility] Comment on above: Result Comment: [...] BNP, CBC, BMP, DDIMER, HS TROP, PT ####[facility] [id number] [place] [id number] [facility] PT Coag (PPP) [Time] 11.7 s Normal 9.0-12.9 [facility] Comment on above: Result Comment: A matocrit value greater than 55% may lead to inaccurate results in coagulation testing. Patients having hematocrit values >55% require a special collection tube for coagulation studies. Please contact the laboratory at [phone] for redraw instructions. Performed By: #### C K, BNP, CBC, BMP, DDIMER, HS TROP, PT ####[facility] [id number] [id number] [facility] Prothrombin time (PT)Ordered By: No Jones on 02-01-2025 PT Coag (PPP) [Time] Prothrombin time (PT) 9.0- 12.9 [facility] Comment on above: A hematocrit value g reater than 55% may lead to inaccurate results in coagulation testing. Patients having hematocrit values >55% require a special collection tube for coagulation studies. Please contact the laboratory at [phone] for redraw instructions. RBC Auto (Bld) [#/Vol]Ordere d By: No Jones on 02-01-2025 RBC (Bld) [#/Vol] Erythrocytes [#/volu me] in Blood by Automated count High 3.60-5.00 [facility] Respiratory (Upper) Panel, P CRon 02-01-2025 Respiratory [...] A H3 Blank Space -- PERFORMED BY: [facility] [address] [place] [address] PATHOLOGIST CLE[employer] NERI COMBS M.D. Normal [facility] Comment on above: Performed By: #### B IOFIRECOVNOTDE, RESP PANEL UPP. ####[facility] [id number] [facility] Respiratory pathogens DNA an d RNA panel - Nasopharynx by UMESH with non-probe detectionOrdered By: No Jones on 02-01-2025 Respiratory pathogens DNA and RNA panel UMESH+non-probe (Nph) Respiratory pathogens DNA and RNA panel - Nasopharynx by UMESH with non-probe detection [facility] Serum or plasma anion gap de terminationOrdered By: No Jones on 02-01-2025 Anion gap [Moles/Vol] Serum or plasma an ion gap determination 6.0-15.0 [facility] Sodium [Moles/volume] in Ser um or PlasmaOrdered By: No Jones on 02-01-2025 Sodium [Moles/Vol] Sodium [Moles/volume ] in Serum or Plasma 136-145 [facility] Specific gravity Test strip (U) [Rel density]Ordered By: No Jones on 02-01-2025 Specific gravity (U) [Rel density] Specific gravity of Urine by Test strip 1.001-1.03 0 [facility] Troponin I High Sensitivityo n 02-01-2025 Troponin I High Sensitivity 7 Normal 0-15 [facility] Comment on above: Result Comment: The Troponin units of report have been changed to meet the Chest Pain Accreditation requirement, element EC5.M1l2. Troponin units are changed from pg/ml to ng/L. Also, the decimal is removed and results are in whole numbers. PERFORMED BY: [place] [address] PATHOLOGIST [employer] NERI COMBS M.D. Performed By: #### H S TROP #### [facility] [address] Troponin I High Sensitivity 9 Normal 0-15 [facility] Comment on above: Result Comment: The Troponin units of report have been changed to meet the Chest Pain Accreditation requirement, element EC5.M1l2. Troponin units are changed from pg/ml to ng/L. Also, the decimal is removed and results are in whole numbers. PERFORMED BY: [place] [address] PATHOLOGIST CLE[employer]ER [employer]ER NERI COMBS M.D. Performed By: #### C K, BNP, CBC, BMP, DDIMER, HS TROP, PT ####[facility] [address] Troponin I.cardiac [Mass/vol ume] in Serum or Plasma by Detection limit <= 0.01 ng/Ordered By: No Jones on 02-01-2025 Troponin I.cardiac DL <= 0.01 ng/mL [Mass/Vol] Troponin I.cardiac [Mass/volume] in Serum or Plasma by Detection limit <= 0.01 ng/ 0-15 [facility] Comment on above: The Troponin units o f report have been changed to meet the Chest Pain Accreditation requirement, element EC5.M1l2. Troponin units are changed from pg/ml to ng/L. Also, the decimal is removed and results are in whole numbers. Urea nitrogen [Mass/volume] in Serum or PlasmaOrdered By: No Jones on 02-01-2025 Urea nitrogen [Mass/Vol] Urea nitrogen [Mass/volume] in Serum or Plasma 7- [facility] Urine Cultureon 02-01-2025 Bacteria identified Cx Nom (U) 75,000 colonies/ml mixed bacterial skin contaminants including mixed gram negative bacilli - 2 Days PERFORMED BY: [place] [address] PATHOLOGIST CLE[employer] NERI COMBS M.D. Normal [facility] Comment on above: Performed By: #### A DDONUANURA, CUU ####[address] Urine cultureOrdered By: Adrian Jones on 02-01-2025 Bacteria identified Cx Nom (U) Urine culture [facility] Urobilinogen Test strip (U) [Mass/Vol]Ordered By: No Jones on 02-01-2025 Urobilinogen (U) [Mass/Vol] Urobilinogen [Mass/volume] in Urine by Test strip Normal [facility] WBC Auto (Bld) [#/Vol]Ordere d By: No Jones on 02-01-2025 WBC (Bld) [#/Vol] Leukocytes [#/volume ] in Blood by Automated count 3.8-11.6 [facility] X-ray reportOrdered By: Juan Moura on 02-01-2025 Study report [facility] [place] [address] XRay Report Signed Patient: Reji Jiang MR#: [id number] : 1945 Acct:[id number] Age/Sex: 79 / F ADM Date: 5 Loc: ER Room: Type: REG ER Attending Dr: Copies to: No Jones MD~ Ordering Provider: No Jones MD Date of Service: 02/01/25 XR/XR knee RT 4V*: Knee/thigh pain ([id number]) XR/XR femur RT 2V*: knee pain, thigh pain ([id number]) XR/XR pelvis 1-2V: PAIN AP PELVIS: Right [...] KNEE. Impression dictated by: Alistair Moura Jr., DElioOElio02/01/2025 2:33 PM Dictation Location: [place] [address] Transcribed By: [facility] 02/01/25 1433 Dictated By: Alistair Moura Jr, DO 02/01/25 1432 Signed By: 02/01/25 1433 [facility] Study report [facility] [place] [address] [place] [address] XRay Report Signed Patient: Reji Jiang MR#: [id number] : 1945 Acct:[id number] Age/Sex: 79 / F ADM Date: 5 [...] DO 02/01/25 1128 Signed By: 02/01/25 1128 [facility] XR chest 2V*on 02-01-2025 XR chest 2V* [facility] Main [place] [id number] XRay Report Signed Patient: Reji Jiang MR#: [id number] : 1945 Acct:[id number] Age/Sex: 79 / F ADM Date: 02/01/25 [...] 1128 Signed By: 02/01/25 1128 Normal [facility] XR femur RT 2V*on 02-01-2025 XR femur RT 2V* [facility] Main [place] [id number] XRay Report Signed Patient: Reji Jiang MR#: [id number] : 1945 Acct:[id number] Age/Sex: 79 / F ADM Date: 02/01/25 Loc: ER Room: Type: REG ER Attending Dr: Copies to: No Jones MD Ordering Provider: No Jones MD Date of Service: 02/01/25 XR/XR knee RT 4V*: Knee/thigh pain ([id number]) XR/XR femur RT 2V*: knee pain, thigh pain ([id number]) XR/XR pelvis 1-2V: PAIN AP PELVIS: Right [...] KNEE. Impression dictated by: Alistair Moura Jr., D.OElio02/01/2025 2:33 PM Dictation Location: [place] [address] Transcribed By: [facility] 02/01/25 1433 Dictated By: Alistair Moura Jr, DO 02/01/25 1432 Signed By: 02/01/25 1433 Normal [facility] pH Test strip (U)Ordered By: No Jones on 02-01-2025 pH (U) pH of Urine by Test strip 5.0-9.0 [facility] Urine Cultureon 01-20-2025 Bacteria identified Cx Nom (U) Results faxed to [facility] at [phone] on 01/24/25. Urine Culture Results >100,000 col/ml Mixed Latisha with Mixed Gram Neg Bacilli PERFORMED BY: [place] [address] PATHOLOGIST CLE[employer]ER AND [employer]ER NERI COMBS M.D. Normal [facility] Comment on above: Performed By: #### C UU #### [address] Urine cultureOrdered By: Clare Patiño on 01-20-2025 Bacteria identified Cx Nom (U) Urine culture [facility] Basophils Auto (Bld) [#/Vol] on 01-19-2025 Basophils (Bld) [#/Vol] Automated basophil count 0.0-0.1 [facility] Basophils/100 WBC Auto (Bld) on 01-19-2025 Basophils/100 WBC (Bld) Automated basophil % 0.2-2.0 [facility] Eosinophils/100 WBC Auto (Bl d)on 01-19-2025 Eosinophils/100 WBC (Bld) Automated eosinophil % 0.9-7.0 [facility] Erythrocyte distribution wid th Auto (RBC) [Ratio]on 01-19-2025 Erythrocyte distribution width (RBC) [Ratio] Erythrocyte distribution width [Ratio] by Automated count 11.0-15.0 [facility] Estimated glomerular filtrat ion rate (GFR) non- Americanon 01-19-2025 GFR/1.73 sq M.predicted among non-blacks MDRD (S/P/Bld) [Vol rate/Area] Estimated glomerular filtration rate (GFR) non- >=60 mL/min/1.7 3m 2 [facility] Globulin Calc (S) [Mass/Vol] on 01-19-2025 Globulin (S) [Mass/Vol] Serum globulin measurement by calculation (mass/volume) [facility] Hematocrit Auto (Bld) [Volum e fraction]on 01-19-2025 Hematocrit (Bld) [Volume fraction] Hematocrit [Volume Fraction] of Blood by Automated count 36.0-48.0 [facility] Hemoglobin [Mass/volume] in Bloodon 01-19-2025 Hemoglobin (Bld) [Mass/Vol] Hemoglobin [Mass/volume] in Blood 12.0-16.0 [facility] Laboratory - Chemistry and C hemistry - challengeon 01-19-2025 Albumin [Mass/Vol] 3.4 g/dL 3.4-5.0 [facility] ALP [Catalytic activity/Vol] 116 U/L 46-116 [facility] ALT [Catalytic activity/Vol] 17 U/L 14-59 [facility] AST [Catalytic activity/Vol] 17 U/L 15-37 [facility] Bilirubin [Mass/Vol] 0.4 mg/dL 0.2-1.0 [facility] Bilirubin.direct [Mass/Vol] 0.1 mg/dL 0.0-0.2 [facility] Calcium [Mass/Vol] 9.0 mg/dL 8.5-10.1 [facility] Chloride [Moles/Vol] 103 mmol/L 98-107 [facility] CO2 [Moles/Vol] 33.8 mmol/L High 21.0-32.0 [facility] Creatinine [Mass/Vol] 0.78 mg/dL 0.55-1.02 [facility] GFR/1.73 sq M.predicted MDRD (S/P/Bld) [Vol rate/Area] mL/min/{1.73_m2} >=60 mL/min/1.7 3m 2 [facility] Glucose [Mass/Vol] 127 mg/dL High 74-106 [facility] Lactate [Moles/Vol] 1.0 mmol/L 0.4-2.0 [facility] Lipase [Catalytic activity/Vol] 36.0 U/L 16.0-77.0 [facility] Potassium [Moles/Vol] 4.2 mmol/L 3.5-5.1 [facility] Protein [Mass/Vol] 7.2 g/dL 6.4-8.2 [facility] Sodium [Moles/Vol] 140 mmol/L 136-145 [facility] Urea nitrogen [Mass/Vol] 12.0 mg/dL 7.0-18.0 [facility] Urea nitrogen/Creatinine [Mass ratio] 15.4 mg/mg [facility] Laboratory - Hematology and Cell countson 01-19-2025 Immature granulocytes/100 WBC (Bld) 0.3 % 0.0-0.5 [facility] Leukocytes [#/volume] correc sheila for nucleated erythrocytes in Blood by Automated counon 01-19-2025 WBC corrected for nucl RBC Auto (Bld) [#/Vol] Leukocytes [#/volume] corrected for nucleated erythrocytes in Blood by Automated coun 4.0-11.0 [facility] Lymphocytes Auto (Bld) [#/Vo l]on 01-19-2025 Lymphocytes (Bld) [#/Vol] Lymphocytes [#/volume] in Blood by Automated count 1.2-3.8 [facility] Lymphocytes/100 WBC Auto (Bl d)on 01-19-2025 Lymphocytes/100 WBC (Bld) Lymphocytes/100 leukocytes in Blood by Automated count 20.5-60.0 [facility] MCH Auto (RBC) [Entitic mass ]on 01-19-2025 MCH (RBC) [Entitic mass] MCH [Entitic mass] by Automated count 26.7-34.0 [facility] MCHC Auto (RBC) [Mass/Vol]on 01-19-2025 MCHC (RBC) [Mass/Vol] MCHC [Mass/volume] by Automated count 29.9-35.2 [facility] MCV Auto (RBC) [Entitic vol] on 01-19-2025 MCV (RBC) [Entitic vol] MCV [Entitic volume] by Automated count 81.0-99.0 [facility] Monocytes Auto (Bld) [#/Vol] on 01-19-2025 Monocytes (Bld) [#/Vol] Automated blood monocyte count High 0.3-0.8 [facility] Monocytes/100 WBC Auto (Bld) on 01-19-2025 Monocytes/100 WBC (Bld) Automated monocyte % 1.7-12.0 [facility] Neutrophils Auto (Bld) [#/Vo l]on 01-19-2025 Neutrophils (Bld) [#/Vol] Neutrophils [#/volume] in Blood by Automated count High 1.4-6.5 [facility] Neutrophils/100 WBC Auto (Bl d)on 01-19-2025 Neutrophils/100 WBC (Bld) Automated neutrophil % 43.0-75.0 [facility] No Panel Informationon 01-19 Eosinophils # (Auto) 0.2 10 3/uL 0.0-0.7 [facility] Immature Granulocyte # (Auto) 0.03 10 3/uL 0.00-0.03 [facility] Platelet mean volume Auto (B ld) [Entitic vol]on 01-19-2025 Platelet mean volume (Bld) [Entitic vol] Platelet mean volume [Entitic volume] in Blood by Automated count Low 9.5-13.5 [facility] Platelets Auto (Bld) [#/Vol] on 01-19-2025 Platelets (Bld) [#/Vol] Platelets [#/volume] in Blood by Automated count 150-450 [facility] RBC Auto (Bld) [#/Vol]on RBC (Bld) [#/Vol] Erythrocytes [#/volu me] in Blood by Automated count 4.20-5.40 [facility] Serum or plasma albumin/glob ulin mass ratioon 01-19-2025 Albumin/Globulin [Mass ratio] Serum or plasma albumin/globulin mass ratio [facility] Serum or plasma anion gap de terminationon 01-19-2025 Anion gap [Moles/Vol] Serum or plasma an ion gap determination [facility] Basophils Auto (Bld) [#/Vol] on 08-09-2024 Basophils (Bld) [#/Vol] 0.1 10 3/uL 0.0-0.1 [facility] Basophils/100 WBC Auto (Bld) on 08-09-2024 Basophils/100 WBC (Bld) 0.7 % 0.2-2.0 [facility] Eosinophils/100 WBC Auto (Bl d)on 08-09-2024 Eosinophils/100 WBC (Bld) 3.2 % 0.9-7.0 [facility] Erythrocyte distribution wid th Auto (RBC) [Ratio]on 08-09-2024 Erythrocyte distribution width (RBC) [Ratio] 12.2 % 11.0-15.0 [facility] Estimated glomerular filtrat ion rate (GFR) non- Americanon 08-09-2024 GFR/1.73 sq M.predicted among non-blacks MDRD (S/P/Bld) [Vol rate/Area] mL/min/{1.73_m2} >=60 [facility] Globulin Calc (S) [Mass/Vol] on 08-09-2024 Globulin (S) [Mass/Vol] 3.7 g/dL [facility] Hematocrit Auto (Bld) [Volum e fraction]on 08-09-2024 Hematocrit (Bld) [Volume fraction] 45.1 % 36.0-48.0 [facility] Hemoglobin [Mass/volume] in Bloodon 08-09-2024 Hemoglobin (Bld) [Mass/Vol] 15.2 g/dL 12.0-16.0 [facility] Laboratory - Chemistry and C hemistry - challengeon 08-09-2024 Albumin [Mass/Vol] 3.5 g/dL 3.4-5.0 [facility] ALP [Catalytic activity/Vol] 100 U/L 46-116 [facility] ALT [Catalytic activity/Vol] 17 U/L 14-59 [facility] AST [Catalytic activity/Vol] 14 U/L Low 15-37 [facility] Bilirubin [Mass/Vol] 0.5 mg/dL 0.2-1.0 [facility] Calcium [Mass/Vol] 9.6 mg/dL 8.5-10.1 [facility] Chloride [Moles/Vol] 100 mmol/L 98-107 [facility] CO2 [Moles/Vol] 35.8 mmol/L High 21.0-32.0 [facility] Creatinine [Mass/Vol] 0.81 mg/dL 0.55-1.02 [facility] Ferritin [Mass/Vol] 49.0 ng/mL 8.0-252.0 [facility] GFR/1.73 sq M.predicted MDRD (S/P/Bld) [Vol rate/Area] mL/min/{1.73_m2} >=60 [facility] Glucose [Mass/Vol] 156 mg/dL High 74-106 [facility] Potassium [Moles/Vol] 3.9 mmol/L 3.5-5.1 [facility] Protein [Mass/Vol] 7.2 g/dL 6.4-8.2 [facility] Sodium [Moles/Vol] 138 mmol/L 136-145 [facility] TSH Qn 2.316 m[IU]/L 0.358-3.74 0 [facility] Urea nitrogen [Mass/Vol] 14.0 mg/dL 7.0-18.0 [facility] Urea nitrogen/Creatinine [Mass ratio] 17.3 mg/mg [facility] Laboratory - Hematology and Cell countson 08-09-2024 Immature granulocytes/100 WBC (Bld) 0.2 % 0.0-0.5 [facility] Leukocytes [#/volume] correc sheila for nucleated erythrocytes in Blood by Automated counon 08-09-2024 WBC corrected for nucl RBC Auto (Bld) [#/Vol] 9.6 10 3/uL 4.0-11.0 [facility] Lymphocytes Auto (Bld) [#/Vo l]on 08-09-2024 Lymphocytes (Bld) [#/Vol] 2.6 10 3/uL 1.2-3.8 [facility] Lymphocytes/100 WBC Auto (Bl d)on 08-09-2024 Lymphocytes/100 WBC (Bld) 26.9 % 20.5-60.0 [facility] MCH Auto (RBC) [Entitic mass ]on 08-09-2024 MCH (RBC) [Entitic mass] 28.5 pg 26.7-34.0 [facility] MCHC Auto (RBC) [Mass/Vol]on 08-09-2024 MCHC (RBC) [Mass/Vol] 33.7 g/dL 29.9-35.2 [facility] MCV Auto (RBC) [Entitic vol] on 08-09-2024 MCV (RBC) [Entitic vol] 84.6 fL 81.0-99.0 [facility] Monocytes Auto (Bld) [#/Vol] on 08-09-2024 Monocytes (Bld) [#/Vol] 0.8 10 3/uL 0.3-0.8 [facility] Monocytes/100 WBC Auto (Bld) on 08-09-2024 Monocytes/100 WBC (Bld) 8.1 % 1.7-12.0 [facility] Neutrophils Auto (Bld) [#/Vo l]on 08-09-2024 Neutrophils (Bld) [#/Vol] 5.8 10 3/uL 1.4-6.5 [facility] Neutrophils/100 WBC Auto (Bl d)on 08-09-2024 Neutrophils/100 WBC (Bld) 60.9 % 43.0-75.0 [facility] No Panel Informationon 08-09 Eosinophils # (Auto) 0.3 10 3/uL 0.0-0.7 [facility] Immature Granulocyte # (Auto) 0.02 10 3/uL 0.00-0.03 [facility] Platelet mean volume Auto (B ld) [Entitic vol]on 08-09-2024 Platelet mean volume (Bld) [Entitic vol] 8.4 fL Low 9.5-13.5 [facility] Platelets Auto (Bld) [#/Vol] on 08-09-2024 Platelets (Bld) [#/Vol] 307 10 3/uL 150-450 [facility] RBC Auto (Bld) [#/Vol]on RBC (Bld) [#/Vol] 5.33 10 6/uL 4.20-5.40 [facility] Serum or plasma albumin/glob ulin mass ratioon 08-09-2024 Albumin/Globulin [Mass ratio] 0.9 {ratio} [facility] Serum or plasma anion gap de terminationon 08-09-2024 Anion gap [Moles/Vol] 6.1 mmol/L [facility] Basophils Auto (Bld) [#/Vol] Ordered By: Shawn Camarillo on 03-28-2023 Basophils (Bld) [#/Vol] 0.1 10*3/uL 0.0-0.2 [facility] Basophils/100 WBC Auto (Bld) Ordered By: Shawn Camarillo on 03-28-2023 Basophils/100 WBC (Bld) 1.0 % . [facility] COVID-19 Detected/Not Detect edOrdered By: Shawn Camairllo on 03-28-2023 SARS-CoV-2 (COVID-19) RNA UMESH+non-probe Ql (Nph) Not detected Not Detecte [facility] Comment on above: This is a duplicate RP2.1 COVID (PCR) result to be used for statistical tracking purpose only. Calcium [Mass/volume] in Ser um or PlasmaOrdered By: Shawn Camarillo on 03-28-2023 Calcium [Mass/Vol] 8.8 mg/dL 8.6-10.3 [facility] Carbon dioxide, total [Moles /volume] in Serum or PlasmaOrdered By: Shawn Camarillo on 03-28-2023 CO2 [Moles/Vol] 32.8 mmol/L 21.0-31.0 [facility] Chloride [Moles/volume] in S nhi or PlasmaOrdered By: Shawn Camarillo on 03-28-2023 Chloride [Moles/Vol] 102 mmol/L 98-107 [facility] Creatinine [Mass/volume] in Serum or PlasmaOrdered By: Shawn Camarillo on 03-28-2023 Creatinine [Mass/Vol] 0.73 mg/dL 0.60-1.20 [facility] Eosinophils Auto (Bld) [#/Vo l]Ordered By: Shawn Camarillo on 03-28-2023 Eosinophils (Bld) [#/Vol] 0.3 10*3/uL 0.0-0.45 [facility] Eosinophils/100 WBC Auto (Bl d)Ordered By: Shawn Camarillo on 03-28-2023 Eosinophils/100 WBC (Bld) 3.2 % . [facility] Erythrocyte distribution wid th Auto (RBC) [Ratio]Ordered By: Shawn Camarillo on 03-28-2023 Erythrocyte distribution width (RBC) [Ratio] 12.8 % 11.9-15.3 [facility] Glucose [Mass/volume] in Ser um or PlasmaOrdered By: Shawn Camarillo on 03-28-2023 Glucose [Mass/Vol] 113 mg/dL 70-100 [facility] Comment on above: ADA recommended refe rence rangeRandom Glucose Reference Range is dependent on time and content of last meal. Glucose of more than 200 mg/dL in a nonstressed, ambulatory subject supports the diagnosis of Diabetes Mellitus. Hematocrit Auto (Bld) [Volum e fraction]Ordered By: Shawn Camarillo on 03-28-2023 Hematocrit (Bld) [Volume fraction] 45.9 % 34.0-46.4 [facility] Hemoglobin [Mass/volume] in BloodOrdered By: Shawn Camarillo on 03-28-2023 Hemoglobin (Bld) [Mass/Vol] 15.5 g/dL 11.8-15.4 [facility] Leukocytes [#/volume] correc sheila for nucleated erythrocytes in Blood by Automated counOrdered By: Shawn Camarillo on 03-28-2023 WBC corrected for nucl RBC Auto (Bld) [#/Vol] 8.6 10*3/uL 3.8-11.6 [facility] Lymphocytes Auto (Bld) [#/Vo l]Ordered By: Shawn Camarillo on 03-28-2023 Lymphocytes (Bld) [#/Vol] 2.0 10*3/uL 1.00-4.8 [facility] Lymphocytes/100 WBC Auto (Bl d)Ordered By: Shawn Camarillo on 03-28-2023 Lymphocytes/100 WBC (Bld) 23.9 % . [facility] MCH Auto (RBC) [Entitic mass ]Ordered By: Shawn Camarillo on 03-28-2023 MCH (RBC) [Entitic mass] 28.2 pg 24.7-34.3 [facility] MCHC Auto (RBC) [Mass/Vol]Or dered By: Shawn Camarillo on 03-28-2023 MCHC (RBC) [Mass/Vol] 33.8 g/dL 32.0-35.0 [facility] MCV Auto (RBC) [Entitic vol] Ordered By: Shawn Camarillo on 03-28-2023 MCV (RBC) [Entitic vol] 83.6 fL 80-100 [facility] Monocyte distribution width [Entitic volume] in Blood by AutomatedOrdered By: Shawn Camarillo on 03-28-2023 Monocyte distribution width Auto (Bld) [Entitic vol] 17.31 % 0.00-20.00 [facility] Monocytes Auto (Bld) [#/Vol] Ordered By: Shawn Camarillo on 03-28-2023 Monocytes (Bld) [#/Vol] 0.6 10*3/uL 0.0-0.8 [facility] Monocytes/100 WBC Auto (Bld) Ordered By: Shawn Camarillo on 03-28-2023 Monocytes/100 WBC (Bld) 6.9 % . [facility] Neutrophils Auto (Bld) [#/Vo l]Ordered By: Shawn Camarillo on 03-28-2023 Neutrophils (Bld) [#/Vol] 5.6 10*3/uL 1.8-7.7 [facility] Neutrophils/100 WBC Auto (Bl d)Ordered By: Shawn Camarillo on 03-28-2023 Neutrophils/100 WBC (Bld) 65.0 % . [facility] No Panel InformationOrdered By: Shawn Camarillo on 03-28-2023 Estimated GFR (CKD-EPI) > 60.0 mL/Min [facility] Pharmacy Creatinine Clearance (Chem 56.10 [facility] Nucleated erythrocytes [Pres ence] in Blood by Automated countOrdered By: Shawn Camarillo on 03-28-2023 Nucleated RBC Auto Ql (Bld) 0.0 /100{WBC} 0-0.5 [facility] Platelet mean volume Auto (B ld) [Entitic vol]Ordered By: Shawn Camarillo on 03-28-2023 Platelet mean volume (Bld) [Entitic vol] 6.3 fL 6.3-10.7 [facility] Platelets Auto (Bld) [#/Vol] Ordered By: Shawn Camarillo on 03-28-2023 Platelets (Bld) [#/Vol] 323 10*3/uL 150-450 [facility] Potassium [Moles/volume] in Serum or PlasmaOrdered By: Shawn Camarillo on 03-28-2023 Potassium [Moles/Vol] 4.2 mmol/L 3.5-5.1 [facility] RBC Auto (Bld) [#/Vol]Ordere d By: Shawn Camarillo on 03-28-2023 RBC (Bld) [#/Vol] 5.49 10*6/uL 3.60-5.00 [facility] Respiratory pathogens DNA an d RNA panel - Nasopharynx by UMESH with non-probe detectionOrdered By: Shawn Camarillo on 03-28-2023 Respiratory pathogens DNA and RNA panel UMESH+non-probe (Nph) [facility] Serum or plasma anion gap de terminationOrdered By: Shawn Camarillo on 03-28-2023 Anion gap [Moles/Vol] 9.4 mmol/L 6.0-15.0 [facility] Sodium [Moles/volume] in Ser um or PlasmaOrdered By: Shawn Camarillo on 03-28-2023 Sodium [Moles/Vol] 140 mmol/L 136-145 [facility] Urea nitrogen [Mass/volume] in Serum or PlasmaOrdered By: Shawn Camarillo on 03-28-2023 Urea nitrogen [Mass/Vol] 10 mg/dL 7- [facility] WBC Auto (Bld) [#/Vol]Ordere d By: Shawn Camarillo on 03-28-2023 WBC (Bld) [#/Vol] 8.6 10*3/uL 3.8-11.6 [facility] CBC AUTO DIFFon 01-11-2023 BASO # 0.1 103/ul Normal 0.0-0.1 [facility] Comment on above: Performed By: #### U MICRO, ERUR #### [facility] [address] [place] [address] [address] Otf Rodriguez Basophils/100 WBC (Bld) 0.5 % Normal 0.2-2.0 [facility] Comment on above: Performed By: #### U MICRO, ERUR #### [facility] [address] [place] [address] [address] Otf Rodriguez EO # 0.3 103/ul Normal 0.0-0.7 [facility] Comment on above: Performed By: #### U MICRO, ERUR #### [facility] [address] [place] [address] [address] Otf Rodriguez Eosinophils/100 WBC (Bld) 1.8 % Normal 0.9-7.0 [facility] Comment on above: Performed By: #### U MICRO, ERUR #### [facility] [address] [place] [address] [address] Otf Rodriguez Erythrocyte distribution width (RBC) [Ratio] 12.4 % Normal 11.0-15.0 [facility] Comment on above: Performed By: #### U MICRO, ERUR #### [facility] [address] [address] [address] Otf Rodriguez Hematocrit (Bld) [Volume fraction] 46.0 % Normal 36.0-48.0 [facility] Comment on above: Performed By: #### U MICRO, ERUR #### [facility] [address] [address] [address] Otf Rodriguez Hemoglobin (Bld) [Mass/Vol] 16.0 g/dL Normal 12.0-16.0 [facility] Comment on above: Performed By: #### U MICRO, ERUR #### [facility] [address] [place] [address] Dr. Otf Rodriguez IG # 0.05 10e3/ul Critically high 0.00-0.03 [facility] Comment on above: Performed By: #### U MICRO, ERUR #### [facility] [address] [place] [address] Dr. Otf Rodriguez IG % 0.3 % Normal 0.0-0.5 [facility] Comment on above: Performed By: #### U MICRO, ERUR #### [facility] [address] [place] [address] Dr. Otf Rodriguez LYMPH # 2.5 103/ul Normal 1.2-3.8 [facility] Comment on above: Performed By: #### U MICRO, ERUR #### [facility] [address] [place] [address] Dr. Otf Rodriguez Lymphocytes/100 WBC (Bld) 16.8 % Critically low 20.5-60.0 [facility] Comment on above: Performed By: #### U MICRO, ERUR #### [facility] [address] [place] [address] Dr. Otf Rodriguez MANUAL DIFF REQ NO Normal [facility] Comment on above: Performed By: #### U MICRO, ERUR #### [facility] [address] [place] [address] Dr. Otf Rodriguez MCH (RBC) [Entitic mass] 28.7 pg Normal 26.7-34.0 [facility] Comment on above: Performed By: #### U MICRO, ERUR #### [facility] [address] [place] [address] Dr. Otf Rodriguez MCHC (RBC) [Mass/Vol] 34.8 g/dL Normal 29.9-35.2 [facility] Comment on above: Performed By: #### U MICRO, ERUR #### [facility] [address] [address] [address] Otf Rodriguez MCV (RBC) [Entitic vol] 82.4 fL Normal 81.0-99.0 [facility] Comment on above: Performed By: #### U MICRO, ERUR #### [facility] [address] [place] [address] Dr. Otf Rodriguez MONO # 1.0 103/ul Critically high 0.3-0.8 [facility] Comment on above: Performed By: #### U MICRO, ERUR #### [facility] [address] [place] [address] Dr. Otf Rodriguez Monocytes/100 WBC (Bld) 6.5 % Normal 1.7-12.0 [facility] Comment on above: Performed By: #### U MICRO, ERUR #### [facility] [address] [place] [address] Dr. Otf Rodriguez NEUT # 11.2 103/ul Critically high 1.4-6.5 [facility] Comment on above: Performed By: #### U MICRO, ERUR #### [facility] [address] [place] [address] Dr. Otf Rodriguez Neutrophils/100 WBC (Bld) 74.1 % Normal 43.0-75.0 [facility] Comment on above: Performed By: #### U MICRO, ERUR #### [facility] [address] [place] [address] Dr. Otf Rodriguez Platelet mean volume (Bld) [Entitic vol] 8.1 fL Critically low 9.5-13.5 [facility] Comment on above: Performed By: #### U MICRO, ERUR #### [facility] [address] [place] [address] Dr. Otf Rodriguez PLT 338 103/ul Normal 150-450 [facility] Comment on above: Performed By: #### U MICRO, ERUR #### [facility] [address] [place] [address] Dr. Otf Rodriguez RBC 5.58 106/ul Critically high 4.20-5.40 [facility] Comment on above: Performed By: #### U MICRO, ERUR #### [facility] [address] [place], [place] [address] Dr. Otf Rodriguez WBC 15.1 103/ul Critically high 4.0-11.0 [facility] Comment on above: Performed By: #### U MICRO, ERUR #### [facility] [address] [place], [place] [address] ABD/PELV W CONon [...] CELENA WATSON Date: 2023-01-11 19:32 Normal [facility] ER URINE PROFILEon 3 Bilirubin Ql (U) Negative Normal NEGATIVE [facility] Comment on above: Performed By: #### U MICRO, ERUR #### [facility] [address] [place] [address] Dr. Otf Rodriguez Clarity (U) CLEAR Normal CLEAR [facility] Comment on above: Performed By: #### U MICRO, ERUR #### [facility] [address] [place] [address] Dr. Otf Rodriguez Color (U) LT. YELLOW Normal YELLOW [facility] Comment on above: Performed By: #### U MICRO, ERUR #### [facility] [address] [place] [address] Dr. Otf Rodriguez ERUAHD A micrscopic examina tion will be performed if indicated. Normal [facility] Comment on above: Performed By: #### U MICRO, ERUR #### [facility] [address] [place] [address] Dr. Otf Rodriguez Glucose Ql (U) Negative Normal NEGATIVE [facility] Comment on above: Performed By: #### U MICRO, ERUR #### [facility] [address] [place] [address] Dr. Otf Rodriguez Hemoglobin Ql (U) TRACE-LYSED Abnormal NEGATIVE [facility] Comment on above: Performed By: #### U MICRO, ERUR #### [facility] [address] [address] [address] Otf Rodriguez Ketones Ql (U) Negative Normal NEGATIVE [facility] Comment on above: Performed By: #### U MICRO, ERUR #### [facility] [address] [place] [address] Dr. Otf Rodriguez LEUKOCYTES TRACE Abnormal NEGATIVE [facility] Comment on above: Performed By: #### U MICRO, ERUR #### [facility] [address] [place] [address] Dr. Otf Rodriguez Nitrite Ql (U) Negative Normal NEGATIVE [facility] Comment on above: Performed By: #### U MICRO, ERUR #### [facility] [address] [place] [address] Dr. Otf Rodriguez pH (U) 7.0 [pH] Normal 5-9 [facility] Comment on above: Performed By: #### U MICRO, ERUR #### [facility] [address] [place] [address] Dr. Otf Rodriguez Protein (U) [Mass/Vol] 30 mg/dL Abnormal NEGAT SIL/ TRACE [facility] Comment on above: Performed By: #### U MICRO, ERUR #### [facility] [address] [place] [address] Dr. Otf Rodriguez SPEC GRAVITY 1.010 Normal 1.005-<=1. 025 [facility] Comment on above: Performed By: #### U MICRO, ERUR #### [facility] [address] [place] [address] Dr. Otf Rodriguez UR MICRO IND INDICATED Normal [facility] Comment on above: Performed By: #### U MICRO, ERUR #### [facility] [address] [place] [address] Dr. Otf Rodriguez Urobilinogen Qn (U) 0.2 {Tian'U}/dL Normal 0.2 - 1. 0 [facility] Comment on above: Performed By: #### U MICRO, ERUR #### [facility] [address] [place] [address] Dr. Otf Rodriguez LACTATE/LACTIC ACIDon 2022 Lactate [Moles/Vol] 0.6 mmol/L Normal 0.4-1.9 [facility] Comment on above: Performed By: #### L ACT #### [facility] [address] [place] [address] Dr. Otf Rodriguez LIPASEon 01-11-2023 Lipase [Catalytic activity/Vol] 159.0 U/L Normal 73.0-393.0 [facility] Comment on above: Performed By: #### U MICRO, ERUR #### [facility] [address] [address] [address] Otf Rodriguez PROF 14(COMP METB)on 023 Albumin [Mass/Vol] 4.0 g/dL Normal 3.4-5.0 [facility] Comment on above: Performed By: #### U MICRO, ERUR #### [facility] [address] [address] [address] Otf Rodriguez Albumin/Globulin [Mass ratio] 1.1 {ratio} Normal [facility] Comment on above: Performed By: #### U MICRO, ERUR #### [facility] [address] [place] [address] Dr. Otf Rodriguez ALP [Catalytic activity/Vol] 128 U/L Critically high 46-116 [facility] Comment on above: Performed By: #### U MICRO, ERUR #### [facility] [address] [place] [address] Dr. Otf Rodriguez ALT [Catalytic activity/Vol] 20 U/L Normal 14-59 [facility] Comment on above: Performed By: #### U MICRO, ERUR #### [facility] [address] [place] [address] Dr. Otf Rodriguez Anion gap [Moles/Vol] 11.0 mmol/L Normal [facility] Comment on above: Performed By: #### U MICRO, ERUR #### [facility] [address] [address] [address] Otf Rodriguez AST [Catalytic activity/Vol] 19 U/L Normal 15-37 [facility] Comment on above: Performed By: #### U MICRO, ERUR #### [facility] [address] [address] [address] Otf Rodriguez Bilirubin [Mass/Vol] 0.4 mg/dL Normal 0.2-1.0 [facility] Comment on above: Performed By: #### U MICRO, ERUR #### [facility] [address] [address] [address] Otf Rodriguez Calcium [Mass/Vol] 9.2 mg/dL Normal 8.5-10.1 [facility] Comment on above: Performed By: #### U MICRO, ERUR #### [facility] [address] [place] [address] Dr. Otf Rodriguez Chloride [Moles/Vol] 99 mmol/L Normal 98-107 [facility] Comment on above: Performed By: #### U MICRO, ERUR #### [facility] [address] [place] [address] Dr. Otf Rodriguez CO2 [Moles/Vol] 29.7 mmol/L Normal 21.0-32.0 [facility] Comment on above: Performed By: #### U MICRO, ERUR #### [facility] [address] [place] [address] Dr. Otf Rodriguez Creatinine [Mass/Vol] 0.71 mg/dL Normal 0.55-1.02 [facility] Comment on above: Performed By: #### U MICRO, ERUR #### [facility] [address] [place] [address] Dr. Otf Rodriguez EGFR-AF AFGHAN >60 Normal >=60 [facility] Comment on above: Performed By: #### U MICRO, ERUR #### [facility] [address] [place] [address] Dr. Otf Rodriguez EGFR-NON AF AFGHAN >60 Normal >=60 [facility] Comment on above: Performed By: #### U MICRO, ERUR #### [facility] [address] [place] [address] Dr. Otf Rodriguez Globulin (S) [Mass/Vol] 3.6 g/dL Normal [facility] Comment on above: Performed By: #### U MICRO, ERUR #### [facility] [address] [place] [address] Dr. Otf Rodriguez Glucose [Mass/Vol] 129 mg/dL Critically high 74-106 [facility] Comment on above: Performed By: #### U MICRO, ERUR #### [facility] [address] [place] [address] Dr. Otf Rodriguez Potassium [Moles/Vol] 3.7 mmol/L Normal 3.5-5.1 [facility] Comment on above: Performed By: #### U MICRO, ERUR #### [facility] [address] [place] [address] Dr. Otf Rodriguez Protein [Mass/Vol] 7.6 g/dL Normal 6.4-8.2 [facility] Comment on above: Performed By: #### U MICRO, ERUR #### [facility] [address] [place] [address] Dr. Otf Rodriguez Sodium [Moles/Vol] 136 mmol/L Normal 136-145 [facility] Comment on above: Performed By: #### U MICRO, ERUR #### [facility] [address] [place] [address] Dr. Otf Rodriguez Urea nitrogen [Mass/Vol] 11.0 mg/dL Normal 7.0-18.0 [facility] Comment on above: Performed By: #### U MICRO, ERUR #### [facility] [address] [place] [address] Dr. Otf Rodriguez Urea nitrogen/Creatinine [Mass ratio] 15.5 mg/mg Normal [facility] Comment on above: Performed By: #### U MICRO, ERUR #### [facility] [address] [place] [address] Dr. Otf Rodriguez TROPONIN, HIGH SENSITIVITYon 01-11-2023 HSTROP 11.8 pg/mL Normal 4.0-51.3 [facility] Comment on above: Result Comment: CUT- OFF POINTS HAVE BEEN ESTABLISHED BASED ON THE FOURTH UNIVERSAL DEFINITIONS OF MYOCARDIAL INFARCTION. THE UPPER REFERENCE LIMIT (URL) OF TROPONIN, DEFINED THE 99TH PERCENTILE OF cTnI DISTRIBUTION IN A REFERENCE POPULATION, HAS BEEN CONFIRMED THE DECISION THRESHOLD FOR AR DIAGNOSIS. Performed By: #### U MICRO, ERUR #### [facility] [address] [place] [address] Dr. Otf Rodriguez URINE MICROSCOPIC ONLYon BACTERIA NONE SEEN Normal NONE SEEN [facility] Comment on above: Performed By: #### U MICRO, ERUR #### [facility] [address] [place] [address] Dr. Otf Rodriguez Bacteria identified Cx Nom (U) NOT INDICATED Normal [facility] Comment on above: Performed By: #### U MICRO, ERUR #### [facility] [address] [place] [address] Dr. Otf Rodriguez CAST NONE SEEN Normal NONE SEEN [facility] Comment on above: Performed By: #### U MICRO, ERUR #### [facility] [address] [place] [address] Dr. Otf Rodriguez Crystals LM Nom (Urine sed) NONE SEEN Normal NONE SEEN [facility] Comment on above: Performed By: #### U MICRO, ERUR #### [facility] [address] [place] [address] Dr. Otf Rodriguez Epithelial cells LM Ql (Urine sed) NONE SEEN Normal NONE SEEN /RARE [facility] Comment on above: Performed By: #### U MICRO, ERUR #### [facility] [address] [place] [address] Dr. Otf Rodriguez MUCOUS NONE SEEN Normal NONE SEEN [facility] Comment on above: Performed By: #### U MICRO, ERUR #### [facility] [address] [place] [address] Dr. Otf Rodriguez RBC 0-2 Normal 0-2 [facility] Comment on above: Performed By: #### U MICRO, ERUR #### [facility] [address] [place] [address] Dr. Otf Rodriguez WBC 0-2 Abnormal NONE SEEN [facility] Comment on above: Performed By: #### U MICRO, ERUR #### [facility] [address] [place] [address] Dr. Otf Rodriguez MRI CSPINE WO CONon [...] CRISTIANE SIMPSON Date: 2022-10-16 10:04 Normal [facility] XR CSPINE 2_3 VIEWSon 2021 XR [...] CRISTIANE SIMPSON Date: 2022-10-01 12:07 Normal [facility] CULTURE WOUNDon 09-15-2022 CULTURE WOUND Culture Observations : No growth of aerobes at 48 hours. Culture Observations: No growth of anaerobes at 72 hours. Normal [facility] Comment on above: Performed By: #### W OUNDCX #### [facility] [address] [place] [address] Dr. Otf Rodriguez GRAM STAINon 09-15-2022 COMMENTS NO ORGANISMS OBSERVED Normal [facility] Comment on above: Performed By: #### G STAIN #### [facility] [address] [place] [address] Dr. Otf Rodriguez DIPHTHEROIDS Normal [facility] Comment on above: Performed By: #### G STAIN #### [facility] [address] [address] [address] Otf Rodriguez EPITHELIALS Normal [facility] Comment on above: Performed By: #### G STAIN #### [facility] [address] [address] [address] Otf Rodriguze FUNGAL ELEMENTS Normal [facility] Comment on above: Performed By: #### G STAIN #### [facility] [address] [address] [address] Otf Rodriguez GRAM NEG BACILLI [facility] Comment on above: Performed By: #### G STAIN #### [facility] [address] [address] [address] Otf Rodriguez GRAM NEG DIPPLOCOCCI [facility] Comment on above: Performed By: #### G STAIN #### [facility] [address] [place] [address] Dr. Otf Rodriguez GRAM POS BACILLI [facility] Comment on above: Performed By: #### G STAIN #### [facility] [address] [address] [address] Otf Rodriguez GRAM POSITIVE COCCI Normal [facility] Comment on above: Performed By: #### G STAIN #### [facility] [address] [address] [address] Otf Rodriguez GRAM STAIN SOURCE Lt 4th Toe Abscess [facility] Comment on above: Performed By: #### G STAIN #### [facility] [address] [address] [address] Otf Rodriguez GS_DIPTH Normal [facility] Comment on above: Performed By: #### G STAIN #### [facility] [address] [address] [address] Otf Rodriguez WBC NONE SEEN Normal [facility] Comment on above: Performed By: #### G STAIN #### [facility] [address] [address] [address] Otf Rodriguez AMYLASEon 07-14-2021 AMYL <30 Critically low 31-110 [facility] Comment on above: Performed By: #### C MP, DHIRAJ, LIPA #### [facility] [address] [place], [place] [address] Jasper Bethea CARDIAC NATA 3-6on CK [Catalytic activity/Vol] 194 U/L Critically high 30-135 [facility] Comment on above: Performed By: #### C VDTBH #### [facility] [address] [place], [place] [id number] Jasper Bethea CK.MB [Mass/Vol] 0.97 ng/mL Normal <=2.37 [facility] Comment on above: Performed By: #### C VDTBH #### [facility] [address] [place] [address] Jasper Bethea HSTROP 16.0 pg/mL Normal 4.0-35.5 [facility] Comment on above: Result Comment: CUT- OFF POINTS HAVE BEEN ESTABLISHED BASED ON THE FOURTH UNIVERSAL DEFINITIONS OF MYOCARDIAL INFARCTION. THE UPPER REFERENCE LIMIT (URL) OF TROPONIN, DEFINED THE 99TH PERCENTILE OF cTnI DISTRIBUTION IN A REFERENCE POPULATION, HAS BEEN CONFIRMED THE DECISION THRESHOLD FOR AR DIAGNOSIS. Performed By: #### C VDTBH #### [facility] [address] [place], [place] [address] Jasper Bethea CBC AUTO DIFFon 07-14-2021 BASO # 0.0 103/ul Normal 0.0-0.1 [facility] Comment on above: Performed By: #### C VDTBH #### [facility] [address] [place], [place] [address] Jasper Neema Basophils/100 WBC (Bld) 0.3 % Normal 0.2-2.0 [facility] Comment on above: Performed By: #### C VDTBH #### [facility] [address] [place], [place] [address] Jasper Neema EO # 0.0 103/ul Normal 0.0-0.7 [facility] Comment on above: Performed By: #### C VDTBH #### [facility] [address] [place], [place] [address] Jasper Neema Eosinophils/100 WBC (Bld) 0.0 % Critically low 0.9-7.0 [facility] Comment on above: Performed By: #### C VDTBH #### [facility] [address] [place] [address] Jasper Bethea Erythrocyte distribution width (RBC) [Ratio] 13.2 % Normal 11.0-15.0 [facility] Comment on above: Performed By: #### C VDTBH #### [facility] [address] [place] [address] Jasper Neema Hematocrit (Bld) [Volume fraction] 42.6 % Normal 36.0-48.0 [facility] Comment on above: Performed By: #### C VDTBH #### [facility] [address] [place] [address] Jasper Bethea Hemoglobin (Bld) [Mass/Vol] 13.7 g/dL Normal 12.0-16.0 [facility] Comment on above: Performed By: #### C VDTBH #### [facility] [address] [place] [address] Jasper Neema IG # 0.03 10e3/ul Normal 0.00-0.03 [facility] Comment on above: Performed By: #### C VDTBH #### [facility] [address] [place] [address] Jasper Neema IG % 0.3 % Normal 0.0-0.5 [facility] Comment on above: Performed By: #### C VDTBH #### [facility] [address] [place] [address] Jasper Neema LYMPH # 1.1 103/ul Critically low 1.2-3.8 [facility] Comment on above: Performed By: #### C VDTBH #### [facility] [address] [place] [address] Jasper Bethea Lymphocytes/100 WBC (Bld) 10.0 % Critically low 20.5-60.0 [facility] Comment on above: Performed By: #### C VDTBH #### [facility] [address] [place] [address] Jasper Bethea MANUAL DIFF REQ NO Normal [facility] Comment on above: Performed By: #### C VDTBH #### [facility] [address] [place] [address] Jasper Bethea MCH (RBC) [Entitic mass] 27.6 pg Normal 26.7-34.0 [facility] Comment on above: Performed By: #### C VDTBH #### [facility] [address] [place] [address] Jasper Neema MCHC (RBC) [Mass/Vol] 32.2 g/dL Normal 29.9-35.2 [facility] Comment on above: Performed By: #### C VDTBH #### [facility] [address] [place] [address] Jasperjanet Bethea MCV (RBC) [Entitic vol] 85.9 fL Normal 81.0-99.0 [facility] Comment on above: Performed By: #### C VDTBH #### [facility] [address] [place] [address] Jasper Fitzgeralden MONO # 0.6 103/ul Normal 0.3-0.8 [facility] Comment on above: Performed By: #### C VDTBH #### [facility] [address] [place] [address] Jasper Bethea Monocytes/100 WBC (Bld) 5.4 % Normal 1.7-12.0 [facility] Comment on above: Performed By: #### C VDTBH #### [facility] [address] [place] [address] Jasper Bethea NEUT # 9.4 103/ul Critically high 1.4-6.5 [facility] Comment on above: Performed By: #### C VDTBH #### [facility] [address] [place] [address] Jasper Bethea Neutrophils/100 WBC (Bld) 84.0 % Critically high 43.0-75.0 [facility] Comment on above: Performed By: #### C VDTBH #### [facility] [address] [place] [address] Jasper Bethea Platelet mean volume (Bld) [Entitic vol] 8.7 fL Critically low 9.5-13.5 [facility] Comment on above: Performed By: #### C VDTBH #### [facility] [address] [place], [place] [address] Jasper Bethea PLT 256 103/ul Normal 150-450 [facility] Comment on above: Performed By: #### C VDTBH #### [facility] [address] [place], [place] [address] Jasper Bethea RBC 4.96 106/ul Normal 4.20-5.40 [facility] Comment on above: Performed By: #### C VDTBH #### [facility] [facility] [address] [place], [place] [id number] Jasper Bethea WBC 11.1 103/ul Critically high 4.0-11.0 [facility] Comment on above: Performed By: #### C VDTBH #### [facility] [address] [place], [place] [address] Jasper Bethea CULTURE URINEon 07-14-2021 CULTURE URINE Culture Observations : GREATER THAN TWO ORGANISMS PRESENT. PLEASE RESUBMIT CLEAN CATCH MID-STREAM URINE IF CLINICALLY INDICATED. Normal [facility] Comment on above: Performed By: #### C VDTBH #### [facility] [address] [place], [place] [address] Jasper Bethea LIPASEon 07-14-2021 Lipase [Catalytic activity/Vol] 120.0 U/L Normal 23.0-300.0 [facility] Comment on above: Performed By: #### C VDTBH #### [facility] [address] [place], [place] [address] Jasper Bethea PROF 14(COMP METB)on 021 Albumin [Mass/Vol] 3.0 g/dL Critically low 3.5-5.0 Th e [facility] Comment on above: Performed By: #### C DHIRAJ LAI LIPA #### [facility] [address] [place], [place] [address] Jasper Bethea Albumin/Globulin [Mass ratio] 0.8 {ratio} Normal [facility] Comment on above: Performed By: #### C DHIRAJ LAI, LIPA #### [facility] [address] [place], [place] [address] Jasper Neema ALP [Catalytic activity/Vol] 98 U/L Normal 38-126 [facility] Comment on above: Performed By: #### C MP, DHIRAJ, LIPA #### [facility] [address] [place] [address] Jasper Enema ALT [Catalytic activity/Vol] 18 U/L Normal 9-52 [facility] Comment on above: Performed By: #### C MP, DHIRAJ, LIPA #### [facility] [address] [place] [address] Jasper Neema Anion gap [Moles/Vol] 12.7 mmol/L Normal Th e [facility] Comment on above: Performed By: #### C MP, DHIRAJ, LIPA #### [facility] [address] [address] Jasper Neema AST [Catalytic activity/Vol] 24 U/L Normal 14-36 [facility] Comment on above: Performed By: #### C MP, DHIRAJ, LIPA #### [facility] [address] [address] Jasper Neema Bilirubin [Mass/Vol] 0.4 mg/dL Normal 0.2-1.3 [facility] Comment on above: Performed By: #### C MP, DHIRAJ, LIPA #### [facility] [address] [id number] Jasper Neema Calcium [Mass/Vol] 8.5 mg/dL Normal 8.4-10.2 [facility] Comment on above: Performed By: #### C MP, DHIRAJ, LIPA #### [facility] [address] [address] Jasper Neema Chloride [Moles/Vol] 105 mmol/L Normal 98-107 [facility] Comment on above: Performed By: #### C MP, DHIRAJ, LIPA #### [facility] [address] [address] Jasper Neema CO2 [Moles/Vol] 28.7 mmol/L Normal 22.0-30.0 [facility] Comment on above: Performed By: #### C MP, DHIRAJ, LIPA #### [facility] [address] [address] Jasper Neema Creatinine [Mass/Vol] 0.88 mg/dL Normal 0.52-1.04 [facility] Comment on above: Performed By: #### C MP, DHIRAJ, LIPA #### [facility] [address] [address] Jasper Neema EGFR-AF AFGHAN >60 Normal >=60 [facility] Comment on above: Performed By: #### C MP, DHIRAJ, LIPA #### [facility] [address] [address] Jasper Neema EGFR-NON AF AFGHAN >60 Normal >=60 [facility] Comment on above: Performed By: #### C MP, DHIRAJ, LIPA #### [facility] [address] [address] Jasper Neema Globulin (S) [Mass/Vol] 3.6 g/dL Normal [facility] Comment on above: Performed By: #### C MP, DHIRAJ, LIPA #### [facility] [address] [address] Jasper Neema Glucose [Mass/Vol] 105 mg/dL Normal 74-106 [facility] Comment on above: Performed By: #### C MP, DHIRAJ, LIPA #### [facility] [address] [place] [address] Jasper Neema Potassium [Moles/Vol] 4.4 mmol/L Normal 3.4-5.0 [facility] Comment on above: Performed By: #### C MP, DHIRAJ, LIPA #### [facility] [address] [address] Jasper Neema Protein [Mass/Vol] 6.6 g/dL Normal 6.1-8.2 [facility] Comment on above: Performed By: #### C MP, DHIRAJ, LIPA #### [facility] [address] [address] Jasper Neema Sodium [Moles/Vol] 142 mmol/L Normal 137-145 [facility] Comment on above: Performed By: #### C MP, DHIRAJ, LIPA #### [facility] [address] [place] [address] Jasper Neema Urea nitrogen [Mass/Vol] 15.0 mg/dL Normal 7.0-17.0 [facility] Comment on above: Performed By: #### C MP, DHIRAJ, LIPA #### [facility] [address] [place] [address] Jasper Neema Urea nitrogen/Creatinine [Mass ratio] 17.0 mg/mg Normal [facility] Comment on above: Performed By: #### C MP, DHIRAJ, LIPA #### [facility] [address] [place] [address] Jasper Neema AMYLASEon 07-13-2021 AMYL <30 Critically low 31-110 [facility] Comment on above: Performed By: #### A MY, CMP, LIPA #### [facility] [address] [place] [address] Jasper Neema CBC AUTO DIFFon 07-13-2021 BASO # 0.0 103/ul Normal 0.0-0.1 [facility] Comment on above: Performed By: #### C BC #### [facility] [address] [place], [place] [address] Jasper Neema Basophils/100 WBC (Bld) 0.3 % Normal 0.2-2.0 [facility] Comment on above: Performed By: #### C BC #### [facility] [address] [place] [address] Jasper Neema EO # 0.2 103/ul Normal 0.0-0.7 [facility] Comment on above: Performed By: #### C BC #### [facility] [address] [place] [address] Jasper Neema Eosinophils/100 WBC (Bld) 1.7 % Normal 0.9-7.0 [facility] Comment on above: Performed By: #### C BC #### [facility] [address] [place] [address] Jasper Neema Erythrocyte distribution width (RBC) [Ratio] 12.8 % Normal 11.0-15.0 [facility] Comment on above: Performed By: #### C BC #### [facility] [address] [place] [address] Jasper Bethea Hematocrit (Bld) [Volume fraction] 43.7 % Normal 36.0-48.0 [facility] Comment on above: Performed By: #### C BC #### [facility] [address] [place] [address] Jasper Bethea Hemoglobin (Bld) [Mass/Vol] 14.3 g/dL Normal 12.0-16.0 [facility] Comment on above: Performed By: #### C BC #### [facility] [address] [place] [address] Jasper Bethea IG # 0.04 10e3/ul Critically high 0.00-0.03 [facility] Comment on above: Performed By: #### C BC #### [facility] [address] [place] [address] Jasper Bethea IG % 0.4 % Normal 0.0-0.5 [facility] Comment on above: Performed By: #### C BC #### [facility] [address] [place] [address] Jasper Bethea LYMPH # 1.6 103/ul Normal 1.2-3.8 [facility] Comment on above: Performed By: #### C BC #### [facility] [address] [place] [address] Jasper Bethea Lymphocytes/100 WBC (Bld) 14.2 % Critically low 20.5-60.0 [facility] Comment on above: Performed By: #### C BC #### [facility] [address] [place] [address] Jasper Bethea MANUAL DIFF REQ NO Normal [facility] Comment on above: Performed By: #### C BC #### [facility] [address] [place] [address] Jasper Bethea MCH (RBC) [Entitic mass] 27.6 pg Normal 26.7-34.0 [facility] Comment on above: Performed By: #### C BC #### [facility] [address] [place], [place] [address] Jasperjanet Bethea MCHC (RBC) [Mass/Vol] 32.7 g/dL Normal 29.9-35.2 [facility] Comment on above: Performed By: #### C BC #### [facility] [address] [place], [place] [address] Jasperjanet Bethea MCV (RBC) [Entitic vol] 84.2 fL Normal 81.0-99.0 [facility] Comment on above: Performed By: #### C BC #### [facility] [address] [id number] Jasper Neema MONO # 0.8 103/ul Normal 0.3-0.8 [facility] Comment on above: Performed By: #### C BC #### [facility] [address] [id number] Jasper Neeam Monocytes/100 WBC (Bld) 7.1 % Normal 1.7-12.0 [facility] Comment on above: Performed By: #### C BC #### [facility] [address] [id number] Jasper Neema NEUT # 8.3 103/ul Critically high 1.4-6.5 [facility] Comment on above: Performed By: #### C BC #### [facility] [address] [place], [place] [address] Jasper Neema Neutrophils/100 WBC (Bld) 76.3 % Critically high 43.0-75.0 [facility] Comment on above: Performed By: #### C BC #### [facility] [address] [place], [place] [address] Jasper Neema Platelet mean volume (Bld) [Entitic vol] 8.5 fL Critically low 9.5-13.5 [facility] Comment on above: Performed By: #### C BC #### [facility] [address] [id number] Jasper Neema PLT 261 103/ul Normal 150-450 [facility] Comment on above: Performed By: #### C BC #### [facility] [address] [place], [place] [address] Jasper Neema RBC 5.19 106/ul Normal 4.20-5.40 [facility] Comment on above: Performed By: #### C BC #### [facility] [address] [place], [place] [address] Jasper Neema WBC 10.9 103/ul Normal 4.0-11.0 [facility] Comment on above: Performed By: #### C BC #### [facility] [address] [place], [place] [address] Jasper Neema LIPASEon 07-13-2021 Lipase [Catalytic activity/Vol] 575.0 U/L Critically high 23.0-300.0 [facility] Comment on above: Performed By: #### A MY, CMP, LIPA #### [facility] [address] [place] [address] Jasperjanet Fitzgeralden PROF 14(COMP METB)on 021 Albumin [Mass/Vol] 3.1 g/dL Critically low 3.5-5.0 [facility] Comment on above: Performed By: #### A MY, CMP, LIPA #### [facility] [address] [place], [place] [address] Jasper Neema Albumin/Globulin [Mass ratio] 0.9 {ratio} Normal [facility] Comment on above: Performed By: #### A MY, CMP, LIPA #### [facility] [address] [place], [place] [address] Jasper Neema ALP [Catalytic activity/Vol] 103 U/L Normal 38-126 [facility] Comment on above: Performed By: #### A MY, CMP, LIPA #### [facility] [address] [place], [place] [address] Jasper Neema ALT [Catalytic activity/Vol] 22 U/L Normal 9-52 [facility] Comment on above: Performed By: #### A MY, CMP, LIPA #### [facility] [address] [place], [place] [address] Jasper Neema Anion gap [Moles/Vol] 9.2 mmol/L Normal [facility] Comment on above: Performed By: #### A MY, CMP, LIPA #### [facility] [address] [address] Jasper Neema AST [Catalytic activity/Vol] 18 U/L Normal 14-36 [facility] Comment on above: Performed By: #### A MY, CMP, LIPA #### [facility] [address] [place] [address] Jasper Neema Bilirubin [Mass/Vol] 0.5 mg/dL Normal 0.2-1.3 [facility] Comment on above: Performed By: #### A MY, CMP, LIPA #### [facility] [address] [place] [address] Jasper Neema Calcium [Mass/Vol] 8.4 mg/dL Normal 8.4-10.2 [facility] Comment on above: Performed By: #### A MY, CMP, LIPA #### [facility] [address] [place] [address] Jasper Neema Chloride [Moles/Vol] 106 mmol/L Normal 98-107 [facility] Comment on above: Performed By: #### A MY, CMP, LIPA #### [facility] [address] [place] [address] Jasper Neema CO2 [Moles/Vol] 31.9 mmol/L Critically high 22.0-30.0 [facility] Comment on above: Performed By: #### A MY, CMP, LIPA #### [facility] [address] [place] [address] Jasper Neema Creatinine [Mass/Vol] 0.80 mg/dL Normal 0.52-1.04 [facility] Comment on above: Performed By: #### A MY, CMP, LIPA #### [facility] [address] [place] [address] Jasper Neema EGFR-AF AFGHAN >60 Normal >=60 [facility] Comment on above: Performed By: #### A MY, CMP, LIPA #### [facility] [address] [place] [address] Jasper Neema EGFR-NON AF AFGHAN >60 Normal >=60 [facility] Comment on above: Performed By: #### A MY, CMP, LIPA #### [facility] [address] [place] [address] Jasper Neema Globulin (S) [Mass/Vol] 3.4 g/dL Normal [facility] Comment on above: Performed By: #### A MY, CMP, LIPA #### [facility] [address] [place] [address] Jasper Neema Glucose [Mass/Vol] 113 mg/dL Critically high 74-106 [facility] Comment on above: Performed By: #### A MY, CMP, LIPA #### [facility] [address] [place] [address] Jasper Neema Potassium [Moles/Vol] 4.1 mmol/L Normal 3.4-5.0 [facility] Comment on above: Performed By: #### A MY, CMP, LIPA #### [facility] [address] [place] [address] Jasper Neema Protein [Mass/Vol] 6.5 g/dL Normal 6.1-8.2 [facility] Comment on above: Performed By: #### A MY, CMP, LIPA #### [facility] [address] [place] [address] Jasper Neema Sodium [Moles/Vol] 143 mmol/L Normal 137-145 [facility] Comment on above: Performed By: #### A MY, CMP, LIPA #### [facility] [address] [place] [address] Jasper Neema Urea nitrogen [Mass/Vol] 11.0 mg/dL Normal 7.0-17.0 [facility] Comment on above: Performed By: #### A MY, CMP, LIPA #### [facility] [address] [place] [address] Jasper Neema Urea nitrogen/Creatinine [Mass ratio] 13.8 mg/mg Normal [facility] Comment on above: Performed By: #### A MY, CMP, LIPA #### [facility] [address] [place] [address] Jasper Bethea AMYLASEon 07-12-2021 Amylase [Catalytic activity/Vol] 46 U/L Normal 31-110 [facility] Comment on above: Performed By: #### A MY #### [facility] [address] [place] [address] Jasper Bethea ASYMPTOMATIC COVID-19 ANTIGE Non 07-12-2021 EUA Statement SEE BELOW Normal [facility] Comment on above: Result Comment: This test [...] sooner. Performed By: #### C VDTB #### [facility] [address] [place] [address] Jasper Bethea SARS-CoV-2 (COVID-19) RNA UMESH+probe Ql (Unsp spec) Negative Normal NEGATIVE [facility] Comment on above: Result Comment: Nega tive results are presumptive. They do not preclude infection and should not be used as the sole basis for treatment decisions. Additional confirmatory testing by a molecular method should be considered. Performed By: #### C VDTB #### [facility] [address] [place] [address] Jasper Bethea CBC AUTO DIFFon 07-12-2021 BASO # 0.1 103/ul Normal 0.0-0.1 [facility] Comment on above: Performed By: #### C MP, LIPA #### [facility] [address] [place] [address] Jasper Bethea Basophils/100 WBC (Bld) 0.5 % Normal 0.2-2.0 [facility] Comment on above: Performed By: #### C MING, LIPA #### [facility] [address] [place] [address] Jasper Neema EO # 0.2 103/ul Normal 0.0-0.7 [facility] Comment on above: Performed By: #### C MING, LIPA #### [facility] [address] [place] [address] Jasper Neema Eosinophils/100 WBC (Bld) 1.6 % Normal 0.9-7.0 [facility] Comment on above: Performed By: #### C MING, LIPA #### [facility] [address] [place] [address] Jasper Neema Erythrocyte distribution width (RBC) [Ratio] 12.7 % Normal 11.0-15.0 [facility] Comment on above: Performed By: #### C MING, LIPA #### [facility] [address] [place] [address] Jasper Neema Hematocrit (Bld) [Volume fraction] 45.7 % Normal 36.0-48.0 [facility] Comment on above: Performed By: #### C MING LIPA #### [facility] [address] [place] [address] Jasper Neema Hemoglobin (Bld) [Mass/Vol] 15.4 g/dL Normal 12.0-16.0 [facility] Comment on above: Performed By: #### C MING, LIPA #### [facility] [address] [place] [address] Jasper Neema IG # 0.03 10e3/ul Normal 0.00-0.03 [facility] Comment on above: Performed By: #### C MING LIPA #### [facility] [address] [place] [address] Jasper Neema IG % 0.3 % Normal 0.0-0.5 [facility] Comment on above: Performed By: #### C MP, LIPA #### [facility] [address] [place] [address] Jasper Neema LYMPH # 2.0 103/ul Normal 1.2-3.8 [facility] Comment on above: Performed By: #### C MP, LIPA #### [facility] [address] [place] [address] Jasper Neema Lymphocytes/100 WBC (Bld) 18.0 % Critically low 20.5-60.0 [facility] Comment on above: Performed By: #### C MP, LIPA #### [facility] [address] [place] [address] Jasperjanet Bethea MANUAL DIFF REQ NO Normal [facility] Comment on above: Performed By: #### C MP, LIPA #### [facility] [address] [place] [address] Jasper Neema MCH (RBC) [Entitic mass] 27.6 pg Normal 26.7-34.0 [facility] Comment on above: Performed By: #### C MP, LIPA #### [facility] [address] [place] [address] Jasperjanet Bethea MCHC (RBC) [Mass/Vol] 33.7 g/dL Normal 29.9-35.2 [facility] Comment on above: Performed By: #### C MP, LIPA #### [facility] [address] [place] [address] Jasperjanet Fitzgeralden MCV (RBC) [Entitic vol] 82.0 fL Normal 81.0-99.0 [facility] Comment on above: Performed By: #### C MP, LIPA #### [facility] [address] [place] [address] Jasper Neema MONO # 0.7 103/ul Normal 0.3-0.8 [facility] Comment on above: Performed By: #### C MP, LIPA #### [facility] [address] [place] [address] Jasper Neema Monocytes/100 WBC (Bld) 6.4 % Normal 1.7-12.0 [facility] Comment on above: Performed By: #### C MP, LIPA #### [facility] [address] [place] [address] Jasper Neema NEUT # 8.0 103/ul Critically high 1.4-6.5 [facility] Comment on above: Performed By: #### C MP, LIPA #### [facility] [address] [place] [address] Jasper Bethea Neutrophils/100 WBC (Bld) 73.2 % Normal 43.0-75.0 [facility] Comment on above: Performed By: #### C MP, LIPA #### [facility] [address] [place] [address] Jasper Bethea Platelet mean volume (Bld) [Entitic vol] 8.4 fL Critically low 9.5-13.5 [facility] Comment on above: Performed By: #### C MP, LIPA #### [facility] [address] [place] [address] Jasper Bethea PLT 287 103/ul Normal 150-450 [facility] Comment on above: Performed By: #### C MING, LIPA #### [facility] [address] [place] [address] Jasper Bethea RBC 5.57 106/ul Critically high 4.20-5.40 [facility] Comment on above: Performed By: #### C MING, LIPA #### [facility] [address] [place] [address] Jasper Bethea WBC 10.9 103/ul Normal 4.0-11.0 [facility] Comment on above: Performed By: #### C MING, LIPA #### [facility] [address] [place], [place] [address] Jasper Bethea CT ABD/PELV W CONon 07-12-20 [...] RAMYA IQBAL Date: 2021-07-12 13:00 Normal [facility] SARS-CoV-2 (COVID-19) RNA UMESH+probe Ql (Unsp spec) Not detected Normal NOT DETECTED [facility] Comment on above: Result Comment: This test is not yet approved or cleared by the [place] FDA. When there are no FDA-approved or cleared tests available, and other criteria are met, FDA can make tests available under an emergency access mechanism called an Emergency Use Authorization (EUA). The EUA for this test is supported by the [employer] of Health and Human Service's (HHS's) declaration [...] consistent with SARS-CoV-2. Performed By: #### C VDPETER [facility] #### [facility] [address] [place] [address] Jasper MCMAHON URINE PROFILEon 1 Bilirubin Ql (U) Negative Normal NEGATIVE [facility] Comment on above: Performed By: #### C VDTB #### [facility] [address] [place] [address] Jasper Neema Clarity (U) CLEAR Normal CLEAR [facility] Comment on above: Performed By: #### C VDTBH #### [facility] [address] [place] [address] Jasper Neema Color (U) LT. YELLOW Normal YELLOW [facility] Comment on above: Performed By: #### C VDTBH #### [facility] [address] [place] [address] Jasper Neema ERUAHD A micrscopic examina tion will be performed if indicated. Normal [facility] Comment on above: Performed By: #### C VDTBH #### [facility] [address] [place] [address] Jasper Neema Glucose Ql (U) Negative Normal NEGATIVE [facility] Comment on above: Performed By: #### C VDTB #### [facility] [address] [place] [address] Jasper Neema Hemoglobin Ql (U) TRACE-INTACT Abnormal NEGATIVE [facility] Comment on above: Performed By: #### C VDTB #### [facility] [address] [place] [address] Jasper Neema Ketones Ql (U) Negative Normal NEGATIVE [facility] Comment on above: Performed By: #### C VDTBH #### [facility] [address] [place] [address] Jasper Neema LEUKOCYTES MODERATE Abnormal NEGATIVE [facility] Comment on above: Performed By: #### C VDTBH #### [facility] [address] [place] [address] Jasper Neema Nitrite Ql (U) Negative Normal NEGATIVE [facility] Comment on above: Performed By: #### C VDTBH #### [facility] [address] [place] [address] Jasper Neema pH (U) 7.5 [pH] Normal 5-9 [facility] Comment on above: Performed By: #### C VDTBH #### [facility] [address] [place] [address] Jasper Bethea SPEC GRAVITY 1.010 Normal 1.005-<=1. 025 [facility] Comment on above: Performed By: #### C VDTBH #### [facility] [address] [place] [address] Jasper Bethea UA PROTEIN Negative Normal NEGATIVE/ TRACE [facility] Comment on above: Performed By: #### C VDTBH #### [facility] [address] [place] [address] Jasper Bethea UR MICRO IND INDICATED Normal [facility] Comment on above: Performed By: #### C VDTBH #### [facility] [address] [place] [address] Jasper Bethea Urobilinogen Qn (U) 0.2 {Tian'U}/dL Normal 0.2 - 1. 0 [facility] Comment on above: Performed By: #### C VDTBH #### [facility] [address] [place] [address] Jasper Bethea LACTATE/LACTIC ACIDon 2020 Lactate [Moles/Vol] mmol/L Critically low 0.7-2.0 [facility] Comment on above: Performed By: #### C VDTBH #### [facility] [address] [place] [address] Jasper Bethea LIPASEon 07-12-2021 Lipase [Catalytic activity/Vol] 1780.0 U/L Critically high 23.0-300.0 [facility] Comment on above: Result Comment: test repeated critical value verified Performed By: #### C MING LIPA #### [facility] [address] [place], [place] [id number] Jasper Neema PROF 14(COMP METB)on 021 Albumin [Mass/Vol] 3.5 g/dL Normal 3.5-5.0 [facility] Comment on above: Performed By: #### C MING LIPA #### [facility] [address] [place] [address] Jasperjanet Bethea Albumin/Globulin [Mass ratio] 0.9 {ratio} Normal [facility] Comment on above: Performed By: #### C MP, LIPA #### [facility] [address] [place], [place] [id number] Jasper Neema ALP [Catalytic activity/Vol] 120 U/L Normal 38-126 [facility] Comment on above: Performed By: #### C MP, LIPA #### [facility] [address] [place] [address] Jasper Neema ALT [Catalytic activity/Vol] 20 U/L Normal 9-52 [facility] Comment on above: Performed By: #### C MP, LIPA #### [facility] [address] [place] [address] Jasper Neema Anion gap [Moles/Vol] 10.3 mmol/L Normal Th [facility] Comment on above: Performed By: #### C MP, LIPA #### [facility] [address] [place] [address] Jasper Neema AST [Catalytic activity/Vol] 19 U/L Normal 14-36 [facility] Comment on above: Performed By: #### C MP, LIPA #### [facility] [address] [place] [address] Jasper Neema Bilirubin [Mass/Vol] 0.4 mg/dL Normal 0.2-1.3 [facility] Comment on above: Performed By: #### C MP, LIPA #### [facility] [address] [place] [address] Jasper Neema Calcium [Mass/Vol] 9.0 mg/dL Normal 8.4-10.2 [facility] Comment on above: Performed By: #### C MP, LIPA #### [facility] [address] [place], [place] [id number] Jasper Neema Chloride [Moles/Vol] 101 mmol/L Normal 98-107 [facility] Comment on above: Performed By: #### C MP, LIPA #### [facility] [address] [place], [place] [id number] Jasper Neema CO2 [Moles/Vol] 32.7 mmol/L Critically high 22.0-30.0 [facility] Comment on above: Performed By: #### C MP, LIPA #### [facility] [address] [place] [address] Jasper Neema Creatinine [Mass/Vol] 0.82 mg/dL Normal 0.52-1.04 [facility] Comment on above: Performed By: #### C MP, LIPA #### [facility] [address] [place] [address] Jasper Neema EGFR-AF AFGHAN >60 Normal >=60 [facility] Comment on above: Performed By: #### C MP, LIPA #### [facility] [address] [place] [address] Jasper Neema EGFR-NON AF AFGHAN >60 Normal >=60 [facility] Comment on above: Performed By: #### C MP, LIPA #### [facility] [address] [place] [address] Jasper Neema Globulin (S) [Mass/Vol] 3.9 g/dL Normal [facility] Comment on above: Performed By: #### C MP, LIPA #### [facility] [address] [place] [address] Jasper Neema Glucose [Mass/Vol] 140 mg/dL Critically high 74-106 [facility] Comment on above: Performed By: #### C MP, LIPA #### [facility] [address] [place] [address] Jasper Neema Potassium [Moles/Vol] 4.0 mmol/L Normal 3.4-5.0 [facility] Comment on above: Performed By: #### C MP, LIPA #### [facility] [address] [place] [address] Jasper Neema Protein [Mass/Vol] 7.4 g/dL Normal 6.1-8.2 [facility] Comment on above: Performed By: #### C MP, LIPA #### [facility] [address] [place] [address] Jasper Neema Sodium [Moles/Vol] 140 mmol/L Normal 137-145 [facility] Comment on above: Performed By: #### C MING, LIPA #### [facility] [address] [id number] Jasper Neema Urea nitrogen [Mass/Vol] 14.0 mg/dL Normal 7.0-17.0 [facility] Comment on above: Performed By: #### C MING, LIPA #### [facility] [address] [id number] Jasper Neema Urea nitrogen/Creatinine [Mass ratio] 17.1 mg/mg Normal [facility] Comment on above: Performed By: #### C MING, LIPA #### [facility] [address] [place] [address] Jasper Neema TROPONIN, HIGH SENSITIVITYon 07-12-2021 HSTROP 7.5 pg/mL Normal 4.0-35.5 [facility] Comment on above: Result Comment: CUT- OFF POINTS HAVE BEEN ESTABLISHED BASED ON THE FOURTH UNIVERSAL DEFINITIONS OF MYOCARDIAL INFARCTION. THE UPPER REFERENCE LIMIT (URL) OF TROPONIN, DEFINED THE 99TH PERCENTILE OF cTnI DISTRIBUTION IN A REFERENCE POPULATION, HAS BEEN CONFIRMED THE DECISION THRESHOLD FOR AR DIAGNOSIS. Performed By: #### C VDTBH #### [facility] [address] [place] [address] Jasper Neema URINE MICROSCOPIC ONLYon BACTERIA MODERATE Abnormal NONE SEEN [facility] Comment on above: Performed By: #### C VDTBH #### [facility] [address] [place], [place] [id number] Jasper Neema Bacteria identified Cx Nom (U) INDICATED Normal [facility] Comment on above: Performed By: #### C VDTBH #### [facility] [address] [place], [place] [id number] Jasper Neema CAST NONE SEEN Normal NONE SEEN [facility] Comment on above: Performed By: #### C VDTBH #### [facility] [address] [place], [place] [id number] Jasper Neema Crystals LM Nom (Urine sed) NONE SEEN Normal NONE SEEN [facility] Comment on above: Performed By: #### C VDTBH #### [facility] [address] [address] Jasper Bethea Epithelial cells LM Ql (Urine sed) MANY Abnormal NONE SEEN /RARE [facility] Comment on above: Performed By: #### C VDTBH #### [facility] [address] [id number] Jasper Neema MUCOUS NONE SEEN Normal NONE SEEN [facility] Comment on above: Performed By: #### C VDTBH #### [facility] [address] [place] [address] Jasper Neema RBC 2-5 Abnormal 0-2 [facility] Comment on above: Performed By: #### C VDTBH #### [facility] [address] [place], [place] [id number] Jasper Neema WBC 50-75 Abnormal NONE SEEN [facility] Comment on above: Performed By: #### C VDTBH #### [facility] [address] [place], [place] [id number] Jasperjanet Bethea Vital Signs Date Time Vital Sign Value Performing Clinician Facility 07-10-2025 14:05-0400 Body height 154.94 cm Paras Gallardo MD Work Phone: [facility] 07-10-2025 14:05-0400 Body mass index (BMI) [Ratio] 35.5 kg/m2 Paras Gallardo MD Work Phone: [facility] 07-10-2025 14:05-0400 Body weight 85.27 kg Paras Gallardo MD Work Phone: [facility] 07-10-2025 14:05-0400 Diastolic blood pressure 78 mm[Hg] Paras Gallardo MD Work Phone: [facility] 07-10-2025 14:05-0400 Heart rate 87 /min Paras Gallardo MD Work Phone: [facility] 07-10-2025 14:05-0400 Respiratory rate 14 /min Paras Gallardo MD Work Phone: [facility] 07-10-2025 14:05-0400 SaO2% (BldA) [Mass fraction] 97 % Paras Gallardo MD Work Phone: [facility] 07-10-2025 14:05-0400 Systolic blood pressure 171 mm[Hg] Paras Gallardo MD Work Phone: [facility] 06-05-2025 13:48-0400 Diastolic blood pressure 80 mm[Hg] Paras Gallardo MD Work Phone: [facility] 06-05-2025 13:48-0400 Systolic blood pressure 152 mm[Hg] Paras Gallardo MD Work Phone: [facility] 06-05-2025 13:28-0400 Body height 154.94 cm Paras Gallardo MD Work Phone: [facility] 06-05-2025 13:28-0400 Body mass index (BMI) [Ratio] 35 kg/m2 Paras Gallardo MD Work Phone: [facility] 06-05-2025 13:28-0400 Body weight 84.08 kg Paras Gallardo MD Work Phone: [facility] 06-05-2025 13:28-0400 Heart rate 93 /min Paras Gallardo MD Work Phone: [facility] 06-05-2025 13:28-0400 Respiratory rate 14 /min Paras Gallardo MD Work Phone: [facility] 06-05-2025 13:28-0400 SaO2% (BldA) [Mass fraction] 97 % Paras Gallardo MD Work Phone: [facility] 04-12-2025 12:18-0400 Body height 154.9 cm Rosita CLEMONS Work Phone: [facility] 04-12-2025 12:18-0400 Body mass index (BMI) [Ratio] 34.77 kg/m2 Ros[facility] CLEMONS [facility] 04-12-2025 12:18-0400 Body weight 83.46 kg Rosita CLEMONS Work Phone: [facility] 04-12-2025 12:18-0400 Diastolic blood pressure 96 mm[Hg] Rosita Nienberg PA Work Phone: [facility] 04-12-2025 12:18-0400 Heart rate 93 /min Rosita Nienberg PA Work Phone: [facility] 04-12-2025 12:18-0400 Respiratory rate 18 /min Rosita Nienberg PA Work Phone: [facility] 04-12-2025 12:18-0400 SaO2% (BldA) [Mass fraction] 95 % Rosita Nienberg PA Work Phone: [facility] 04-12-2025 12:18-0400 Systolic blood pressure 118 mm[Hg] Rosita Nienberg PA Work Phone: [facility] 03-29-2025 12:50-0400 Diastolic blood pressure 68 mm[Hg] Rosita Nienberg PA Work Phone: [facility] 03-29-2025 12:50-0400 Heart rate 101 /min Rosita Nienberg PA Work Phone: [facility] 03-29-2025 12:50-0400 Respiratory rate 18 /min Rosita Nienberg PA Work Phone: [facility] 03-29-2025 12:50-0400 SaO2% (BldA) [Mass fraction] 94 % Rosita Nienberg PA Work Phone: [facility] 03-29-2025 12:50-0400 Systolic blood pressure 149 mm[Hg] Rosita Nienberg PA Work Phone: [facility] 03-16-2025 18:10-0400 Body height 154.94 cm Paras Gallardo MD Work Phone: [facility] 03-16-2025 18:10-0400 Body mass index (BMI) [Ratio] 34.4 kg/m2 Paras Gallardo MD Work Phone: [facility] 03-16-2025 18:10-0400 Body temperature 97.5 [degF] Paras Gallardo MD Work Phone: [facility] 03-16-2025 18:10-0400 Body weight 82.61 kg Paras Gallardo MD Work Phone: [facility] 03-16-2025 18:10-0400 Diastolic blood pressure 97 mm[Hg] Paras Gallardo MD Work Phone: [facility] 03-16-2025 18:10-0400 Heart rate 97 /min Paras Gallardo MD Work Phone: [facility] 03-16-2025 18:10-0400 Respiratory rate 18 /min Paras Gallardo MD Work Phone: [facility] 03-16-2025 18:10-0400 SaO2% (BldA) [Mass fraction] 94 % Paras Gallardo MD Work Phone: [facility] 03-16-2025 18:10-0400 Systolic blood pressure 186 mm[Hg] Paras Gallardo MD Work Phone: [facility] 02-20-2025 10:47-0400 Body height 154.9 cm Rosita CLEMONS Work Phone: [facility] 02-20-2025 10:47-0400 Body mass index (BMI) [Ratio] 34.01 kg/m2 Rosita Castillo PA Work Phone: [facility] 02-20-2025 10:47-0400 Body weight 81.65 kg Rosita Castillo PA [facility] 02-20-2025 10:47-0400 Diastolic blood pressure 82 mm[Hg] Rosita Castillo PA Work Phone: [facility] 02-20-2025 10:47-0400 Heart rate 100 /min Rosita Castillo PA Work Phone: [facility] 02-20-2025 10:47-0400 Respiratory rate 20 /min Rosita CLEMONS Work Phone: [facility] 02-20-2025 10:47-0400 SaO2% (BldA) [Mass fraction] 97 % Rosita CLEMONS Work Phone: [facility] 02-20-2025 10:47-0400 Systolic blood pressure 150 mm[Hg] Rosita CLEMONS Work Phone: [facility] 02-08-2025 14:18-0400 Body height 154.94 cm Paras Gallardo MD Work Phone: [facility] 02-08-2025 14:18-0400 Body mass index (BMI) [Ratio] 33.7 kg/m2 Paras Gallardo MD Work Phone: [facility] 02-08-2025 14:18-0400 Body weight 80.96 kg Paras Gallardo MD Work Phone: [facility] 02-08-2025 14:18-0400 Diastolic blood pressure 74 mm[Hg] Paras Gallardo MD Work Phone: [facility] 02-08-2025 14:18-0400 Heart rate 81 /min Paras Gallardo MD Work Phone: [facility] 02-08-2025 14:18-0400 SaO2% (BldA) [Mass fraction] 92 % Paras Gallardo MD Work Phone: [facility] 02-08-2025 14:18-0400 Systolic blood pressure 134 mm[Hg] Paras Gallardo MD Work Phone: [facility] 02-05-2025 11:53-0400 Body temperature 97.8 [degF] Paras Gallardo MD Work Phone: [facility] 02-05-2025 11:53-0400 Diastolic blood pressure 75 mm[Hg] Paras Gallardo MD Work Phone: [facility] 02-05-2025 11:53-0400 Heart rate 80 /min Paras Gallardo MD Work Phone: [facility] 02-05-2025 11:53-0400 Inhaled oxygen flow rate 1 L/min Paras Gallardo MD Work Phone: [facility] 02-05-2025 11:53-0400 Respiratory rate 17 /min Paras Gallardo MD Work Phone: [facility] 02-05-2025 11:53-0400 SaO2% (BldA) [Mass fraction] 93 % Paras Gallardo MD Work Phone: [facility] 02-05-2025 11:53-0400 Systolic blood pressure 147 mm[Hg] Paras Gallardo MD Work Phone: [facility] 02-05-2025 06:00-0400 Body weight 85.8 kg Paras Gallardo MD Work Phone: [facility] 02-03-2025 16:00-0400 Inhaled oxygen concentration 90 % Paras Gallardo MD Work Phone: [facility] 02-02-2025 12:54-0400 Body height 154.94 cm Paras Gallardo MD Work Phone: [facility] 02-01-2025 15:00-0400 Diastolic blood pressure 72 mm[Hg] Paras Gallardo MD Work Phone: [facility] 02-01-2025 15:00-0400 Heart rate 95 /min Paras Gallardo MD Work Phone: [facility] 02-01-2025 15:00-0400 Inhaled oxygen flow rate 3 L/min Paras Gallardo MD Work Phone: [facility] 02-01-2025 15:00-0400 Respiratory rate 24 /min Paras Gallardo MD Work Phone: [facility] 02-01-2025 15:00-0400 SaO2% (BldA) [Mass fraction] 91 % Paras Gallardo MD Work Phone: [facility] 02-01-2025 15:00-0400 Systolic blood pressure 172 mm[Hg] Paras Gallardo MD Work Phone: [facility] 02-01-2025 11:04-0400 Body temperature 98.5 [degF] Paras Gallardo MD Work Phone: [facility] 02-01-2025 11:01-0400 Body height 154.94 cm Paras Gallardo MD Work Phone: [facility] 02-01-2025 11:01-0400 Body weight 79.83 kg Paras Gallardo MD Work Phone: [facility] 01-20-2025 13:17-0500 Body height 152.4 cm [facility] 01-20-2025 13:17-0500 Body temperature 98.1 [degF] [facility] 01-20-2025 13:17-0500 Diastolic blood pressure 70 mm[Hg] [facility] 01-20-2025 13:17-0500 Heart rate 75 /min [facility] 01-20-2025 13:17-0500 Respiratory rate 18 /min [facility] 01-20-2025 13:17-0500 SaO2% (BldA) [Mass fraction] 91 % [facility] 01-20-2025 13:17-0500 Systolic blood pressure 190 mm[Hg] [facility] 08-08-2024 13:55-0400 Body height 152.4 cm [facility] 08-08-2024 13:55-0400 Body mass index (BMI) [Ratio] 34.9 kg/m2 [facility] 08-08-2024 13:55-0400 Body weight 81.19 kg [facility] 08-08-2024 13:55-0400 Diastolic blood pressure 83 mm[Hg] [facility] 08-08-2024 13:55-0400 Heart rate 84 /min [facility] 08-08-2024 13:55-0400 Systolic blood pressure 154 mm[Hg] [facility] 03-23-2024 08:29-0400 Body height 154.9 cm Rosita CLEMONS Work Phone: [facility] [employer] [facility] 03-23-2024 08:29-0400 Body mass index (BMI) [Ratio] 33.82 kg/m2 Rosita Nienberg PA Work Phone: [facility] [employer] [facility] 03-23-2024 08:29-0400 Body weight 81.19 kg Rosita Nienberg PA Work Phone: [facility] [employer] [facility] 03-23-2024 08:29-0400 Diastolic blood pressure 92 mm[Hg] Rosita Nienberg PA Work Phone: [facility] [employer] [facility] Comment on above: manual 03-23-2024 08:29-0400 Heart rate 93 /min Rosita Nienberg PA Work Phone: [facility] [employer] [facility] 03-23-2024 08:29-0400 Respiratory rate 18 /min Rosita Nienberg PA Work Phone: [facility] [employer] [facility] 03-23-2024 08:29-0400 SaO2% (BldA) [Mass fraction] 100 % Rosita Nienberg PA Work Phone: [facility] [employer] [facility] 03-23-2024 08:29-0400 Systolic blood pressure 172 mm[Hg] Rosita Nienberg PA Work Phone: [facility] [employer] [facility] Comment on above: manual 02-17-2024 10:51-0400 Body height 154.9 cm Rosita Nienberg PA Work Phone: [facility] 02-17-2024 10:51-0400 Body mass index (BMI) [Ratio] 34.2 kg/m2 Rosita Nienberg PA Work Phone: [facility] 02-17-2024 10:51-0400 Body weight 82.1 kg Rosita Nienberg PA Work Phone: [facility] [employer] [facility] 02-17-2024 10:51-0400 Diastolic blood pressure 82 mm[Hg] Rosita Nienberg PA Work Phone: [facility] 02-17-2024 10:51-0400 Heart rate 93 /min Rosita Nienberg PA Work Phone: [employer] 02-17-2024 10:51-0400 Respiratory rate 16 /min Rosita Castillo PA Work Phone: [employer] 02-17-2024 10:51-0400 SaO2% (BldA) [Mass fraction] 93 % Rosita Castillo PA Work Phone: [employer] 02-17-2024 10:51-0400 Systolic blood pressure 180 mm[Hg] Rosita Castillo PA Work Phone: [employer] 08-16-2023 10:45-0400 Body height 152.4 cm Paras Gallardo Other [employer] Other 08-16-2023 10:45-0400 Body mass index (BMI) [Ratio] 34.76 kg/m2 Paras Gallardo Other [employer] Other 08-16-2023 10:45-0400 Body weight 80.74 kg Paras Gallardo Other [employer] Other 08-16-2023 10:45-0400 Diastolic blood pressure 82 mm[Hg] Paras Gallardo Other [employer] Other 08-16-2023 10:45-0400 Systolic blood pressure 152 mm[Hg] Paras Gallardo Other [employer] Other 04-27-2023 10:45-0400 Body height 152.4 cm Paras Gallardo Other [employer] Other 04-27-2023 10:45-0400 Body mass index (BMI) [Ratio] 34.76 kg/m2 Paras Gallardo Other [employer] Other 04-27-2023 10:45-0400 Body weight 80.74 kg Paras Gallardo Other [facility] [employer] Other 04-27-2023 10:45-0400 Diastolic blood pressure 80 mm[Hg] Paras Gallardo Other [facility] [employer] Other 04-27-2023 10:45-0400 Systolic blood pressure 154 mm[Hg] Paras Gallardo Other [facility] [employer] Other 03-28-2023 11:17-0400 Heart rate 98 /min MD Paras Gallardo Work Phone: [facility] 03-28-2023 11:17-0400 Respiratory rate 20 /min MD Paras Gallardo Work Phone: [facility] 03-28-2023 11:17-0400 SaO2% (BldA) [Mass fraction] 97 % MD Paras Gallardo Work Phone: [facility] 03-28-2023 11:10-0400 Diastolic blood pressure 60 mm[Hg] MD Paras Gallardo Work Phone: [facility] 03-28-2023 11:10-0400 Systolic blood pressure 159 mm[Hg] MD Paras Gallardo Work Phone: [facility] 03-28-2023 09:56-0400 Body height 154.94 cm MD Paras Gallardo Work Phone: [facility] 03-28-2023 09:56-0400 Body temperature 97 [degF] MD Paras Gallardo Work Phone: [facility] 03-28-2023 09:56-0400 Body weight 81.6 kg MD Paras Gallardo Work Phone: [facility] 10-26-2022 15:00-0500 Body height 154.94 cm Amanda Blades Other [facility] [employer] Other 10-26-2022 15:00-0500 Body mass index (BMI) [Ratio] 33.44 kg/m2 Amanda Blades Other [facility] [employer] Other 10-26-2022 15:00-0500 Body weight 80.29 kg Amanda Blades Other [facility] [employer] Other 10-10-2022 10:17-0500 Body height 154.94 cm MD Lindy Rodriguez Work Phone: [facility] 10-10-2022 10:17-0500 Body weight 79.7 kg MD Lindy Rodriguez Work Phone: [facility] 10-10-2022 10:13-0500 Body temperature 98.5 [degF] MD Lindy Rodriguez Work Phone: [facility] 10-10-2022 10:13-0500 Diastolic blood pressure 98 mm[Hg] MD Lindy Rodriguez Work Phone: [facility] 10-10-2022 10:13-0500 Heart rate 73 /min MD Lindy Rodriguez Work Phone: [facility] 10-10-2022 10:13-0500 Respiratory rate 20 /min MD Lindy Rodriguez Work Phone: [facility] 10-10-2022 10:13-0500 SaO2% (BldA) [Mass fraction] 93 % MD Lindy Rodriguez Work Phone: [facility] 10-10-2022 10:13-0500 Systolic blood pressure 152 mm[Hg] MD Lindy Rodriguez Work Phone: [facility] Encounters Encounter Date Encounter Type Care Provider Facility Start: 08-01-2025 End: 08-01-2025 ambulatory JULIAN ARELLANO [facility] Start: 07-10-2025 End: 07-10-2025 ambulatory Paras Gallardo MD Work Phone: [facility] Work Phone: Start: 07-10-2025 End: 07-10-2025 Patient encounter procedure Paras Gallardo MD -[facility] Work Phone: Start: 06-25-2025 Non-patient / Non-visit Paras Gallardo MD -[facility] Work Phone: Start: 06-06-2025 Patient encounter procedure Paras Gallardo MD Work Phone: [facility] Start: 06-05-2025 End: 06-05-2025 ambulatory Paras Gallardo MD Work Phone: [facility] Work Phone: Start: 06-05-2025 End: 06-05-2025 Patient encounter procedure Paras Gallardo MD -[facility] Work Phone: Start: 05-01-2025 End: 05-10-2025 Telephone encounter Leana Rubin RN [facility] Start: 04-12-2025 End: 04-12-2025 Office outpatient visit 25 minutes Rosita Castillo PA Work Phone: [facility] Comment on above: Cervical spondylosis without myelopathy (Primary Dx) Start: 04-12-2025 End: 04-12-2025 ambulatory [facility] Start: 03-29-2025 End: 03-29-2025 Office outpatient visit 15 minutes Rosita Castillo PA Work Phone: [facility] Comment on above: Cervical spondylosis without myelopathy (Primary Dx) Start: 03-29-2025 End: 03-29-2025 ambulatory [facility] Start: 03-16-2025 End: 03-16-2025 ambulatory Paras Gallardo MD Work Phone: [facility] Work Phone: Start: 03-16-2025 End: 03-16-2025 Patient encounter procedure Paras Gallardo MD Work Phone: [facility] Work Phone: Start: 03-09-2025 End: 03-09-2025 ambulatory KAMRA KOROMA [facility] Start: 02-20-2025 End: 02-20-2025 Office outpatient visit 25 minutes Rosita Demar Jonathan CLEMONS Work Phone: [facility] Comment on above: Cervical spondylosis without myelopathy (Primary Dx) Start: 02-20-2025 End: 02-20-2025 ambulatory ROSITA CASTILLO [facility] Start: 02-08-2025 End: 02-08-2025 ambulatory Paras Gallardo MD Work Phone: [facility] Work Phone: Start: 02-08-2025 End: 02-08-2025 Patient encounter procedure Paras Gallardo MD Work Phone: [facility] Work Phone: Start: 02-05-2025 Non-patient / Non-visit Paras Gallardo MD Work Phone: [facility] Work Phone: Start: 02-01-2025 End: 02-05-2025 Evaluation and management of inpatient Paras Gallardo MD Work Phone: [facility] Work Phone: Start: 01-25-2025 End: 01-25-2025 ambulatory Paras Gallardo MD Work Phone: [facility] Work Phone: Start: 01-25-2025 End: 01-25-2025 Patient encounter procedure Paras Gallardo MD Work Phone: [facility] Work Phone: Start: 01-22-2025 Non-patient / Non-visit Paras Gallardo MD Work Phone: [facility] Work Phone: Start: 01-20-2025 End: 01-20-2025 ambulatory Paras Gallardo MD Work Phone: [facility] Work Phone: Start: 01-20-2025 End: 01-20-2025 Departed Referred Paras Gallardo MD Work Phone: [facility] Start: 01-20-2025 End: 01-20-2025 ambulatory [facility] Work Phone: Start: 01-20-2025 End: 01-20-2025 Patient encounter procedure [facility] Work Phone: Start: 01-19-2025 Non-patient / Non-visit [facility] Work Phone: Start: 12-07-2024 End: 12-07-2024 ambulatory [facility] Work Phone: Start: 12-07-2024 End: 12-07-2024 Patient encounter procedure [facility] Work Phone: Start: 08-17-2024 End: 08-17-2024 ambulatory [facility] Work Phone: Start: 08-17-2024 End: 08-17-2024 Patient encounter procedure [facility] Work Phone: Start: 08-09-2024 Non-patient / Non-visit [facility] Work Phone: Start: 08-08-2024 End: 08-08-2024 ambulatory [facility] Work Phone: Start: 08-08-2024 End: 08-08-2024 Patient encounter procedure [facility] Work Phone: Start: 03-23-2024 End: 03-23-2024 Office outpatient visit 15 minutes Rosita CLEMONS Work Phone: [facility] Comment on above: Cervical spondylosis without myelopathy (Primary Dx) Start: 02-17-2024 End: 02-17-2024 Office outpatient visit 15 minutes Rosita CLEMONS Work Phone: [facility] Comment on above: Cervical spondylosis without myelopathy (Primary Dx) Start: 09-08-2023 End: 09-08-2023 ambulatory Thomas Calles Other [employer] Other Start: 09-08-2023 Telephone encounter Thomas Pereyra Bobbin [facility] Start: 08-30-2023 End: 08-30-2023 ambulatory Paras Gallardo Other [employer] Other Start: 08-30-2023 Telephone encounter Paras Gallardo [facility] Start: 08-23-2023 End: 08-23-2023 ambulatory Paras Gallardo Other [employer] Other Start: 08-23-2023 Telephone encounter Paras Gallardo [facility] Start: 08-17-2023 End: 08-17-2023 ambulatory Paras Gallardo Other [employer] Other Start: 08-17-2023 Telephone encounter Paras Gallardo [facility] Start: 08-16-2023 End: 08-16-2023 ambulatory Paras Gallardo Other [employer] Other Start: 08-16-2023 Office outpatient visit 25 minutes Paras Gallardo [facility] Start: 05-14-2023 End: 05-14-2023 ambulatory Paras Gallardo Other [employer] Other Start: 05-14-2023 Telephone encounter Paras Gallardo [facility] Start: 04-27-2023 End: 04-27-2023 ambulatory Paras Gallardo Other [facility] [employer] Other Start: 04-27-2023 Office outpatient visit 15 minutes Paras Gallardo [facility] Start: 03-28-2023 End: 03-28-2023 Emergency department patient visit MD Paras Gallardo Work Phone: [facility] Work Phone: Start: 01-11-2023 End: 01-11-2023 ambulatory KACI PATIÑO . Facility:[facility] Start: 10-26-2022 End: 10-26-2022 ambulatory Amanda Blades Other [facility] [employer] Other Start: 10-26-2022 Office outpatient ne w 45 minutes Amanda Blades [facility] Start: 10-16-2022 End: 10-17-[address] PARAS GALLARDO Facility:[facility] Start: 10-10-2022 End: 10-10-2022 Emergency department patient visit MD Lindy Rodriguez Work Phone: [facility] Start: 10-01-2022 End: 10-01-2022 ambulatory [...] mammography M astrid Gallardo Other Viral screening Paras Gallardo Other Plan of Treatment Date Care Activity Detail Author Start: 04-12-2026 Tobacco Screening Tobacco Screening [facility] Start: 03-29-2026 Tobacco Screening Tobacco Screening [facility] Start: 02-20-2026 Tobacco Screening Tobacco Screening [facility] Start: 07-16-2025 Influenza vaccination Influenza Vacc ine [facility] Start: 07-10-2025 Patient referral [facility] Work Phone: Start: 06-26-2025 End: 06-26-2025 Patient encounter procedure 06/26/2025 12:30 PM EDT Office Visit [facility] [address] [place] [address] Rosita Castillo, PA [address] [place] [address] [facility] Start: 05-25-2025 End: 05-25-2025 Admission to same day surgery center 05/25/2025 9:30 AM EDT - 05/25/2025 9:42 AM EDT Surgery [facility] [address] [place] [address] Kamar Koroma MD [address] [place] [address] RADIOFREQUENCY ABLATION SPINAL: right C23 34 [62185 (CPT )] [facility] Comment on above: RADIOFREQUENCY ABLAT ION SPINAL: right C23 34 [14293 (CPT )] Start: 05-25-2025 End: 05-25-2025 Dstr nrolytc agnt parverteb fct sngl crvcl/thora RADIOFREQUENCY ABLATION SPINAL Cervical spondylosis without myelopathy 05/25/2025 9:30 AM EDT [facility] Start: 05-25-2025 Subsequent hospital visit by physician 05/25/2025 9:30 AM EDT Hospital Encounter [facility] [address] [place] [id number] Kamar Koroma MD [address] [place] [address] [facility] Start: 05-04-2025 End: 05-04-2025 Admission to same day surgery center 05/04/2025 9:33 AM EDT - 05/04/2025 9:45 AM EDT Surgery [facility] [address] [place] [address] Kamar Koroma MD [address] [place] [address] RADIOFREQUENCY ABLATION SPINAL: left C 2/3, 3/4 [46564 (CPT )] [facility] Comment on above: RADIOFREQUENCY ABLAT ION SPINAL: left C 2/3, 3/4 [98473 (CPT )] Start: 05-04-2025 End: 05-04-2025 Dstr nrolytc agnt parverteb fct sngl crvcl/thora RADIOFREQUENCY ABLATION SPINAL Cervical spondylosis without myelopathy 05/04/2025 9:33 AM EDT [facility] Start: 05-04-2025 Subsequent hospital visit by physician 05/04/2025 9:33 AM EDT Hospital Encounter [facility] [address] [facility] [place] [phone] Kamar Koroma MD [address] [place], [place] [id number] [facility] Start: 03-27-2025 End: 03-27-2025 Patient encounter procedure 03/27/2025 10:45 AM EDT Office Visit [facility] [address] [place] [place] [phone] Rosita Castillo PA [address] [place] [address] [facility] Start: 03-23-2025 Adult BMI Screening Adult BMI Screen ing [facility] Start: 03-23-2025 Tobacco Screening Tobacco Screening [facility] Start: 03-09-2025 End: 03-09-2025 Admission to same day surgery center 03/09/2025 10:07 AM EDT - 03/09/2025 10:14 AM EDT Surgery [facility] [address] [place] [id number] Kamar Koroma MD [address] [place], [place] [id number] INJECTION BLOCK NERVE MEDIAL BRANCH: bilat C 2/3, 3/4 [35966 (CPT )] [facility] Comment on above: INJECTION BLOCK NERV E MEDIAL BRANCH: bilat C 2/3, 3/4 [59426 (CPT )] Start: 03-09-2025 End: 03-09-2025 Njx dx/ther agt pvrt facet jt crv/thrc 1 level INJECTION BLOCK NERVE MEDIAL BRANCH Cervical spondylosis without myelopathy 03/09/2025 10:07 AM EDT [facility] Start: 03-09-2025 Subsequent hospital visit by physician 03/09/2025 10:07 AM EDT Hospital Encounter [facility] [address] [place] [phone] Kamar Koroma MD [address] [place] [address] [facility] Start: 02-16-2025 Adult BMI Screening Adult BMI Screen ing [facility] Start: 02-16-2025 Tobacco Screening Tobacco Screening [facility] Start: 02-05-2025 [facility] Start: 02-02-2025 Comprehensive metabo lic 2000 panel - Serum or Plasma [facility] Start: 02-02-2025 [facility] Start: 02-01-[address] [facility] Start: 02-01-2025 [facility] Start: 02-01-2025 Bacteria identified in Urine by Culture Urine Culture [facility] Start: 02-01-2025 Urine culture [facility] Start: 01-20-2025 Urine culture [facility] Start: 01-20-2025 Bacteria identified in Urine by Culture Urine Culture [facility] Start: 07-16-2024 COVID-19 Vaccine ( season) COVID-19 Vaccine () [facility] Start: 07-16-2024 Influenza vaccination Influenza Vacc ine [facility] Start: 05-04-2024 End: 05-04-2024 Patient encounter procedure 05/04/2024 1:30 PM EDT Office Visit [facility] [address] [place] [phone] Rosita Castillo, PA [address] [place] [address] [facility] Start: 03-23-2024 End: 03-23-2024 Patient encounter procedure 03/23/2024 8:45 AM EDT Office Visit [facility] [address] [place] [phone] Rosita Castillo, PA [address] [place], [place] [id number] [facility] Start: 03-03-2024 End: 03-03-2024 Admission to same day surgery center 03/03/2024 12:39 PM EDT - 03/03/2024 12:45 PM EDT Surgery [facility] [address] [place] [phone] Kamar Koroma MD [address] [place], [place] [id number] INJECTION BLOCK NERVE MEDIAL BRANCH: bilat C23 34 [13148 (CPT )] [facility] Comment on above: INJECTION BLOCK NERV E MEDIAL BRANCH: bilat C23 34 [11840 (CPT )] Start: 03-03-2024 End: 03-03-2024 Njx dx/ther agt pvrt facet jt crv/thrc 1 level INJECTION BLOCK NERVE MEDIAL BRANCH Cervical spondylosis without myelopathy 03/03/2024 12:39 PM EDT [facility] Start: 03-03-2024 Subsequent hospital visit by physician 03/03/2024 12:39 PM EDT Hospital Encounter [facility] [address] [place] [address] Kamar Koroma MD [address] [place] [address] [facility] Start: 07-16-2023 COVID-19 Vaccine ( season) COVID-19 Vaccine ( season) [facility] Start: 2009 Fall Risk Screening Fall Risk Screen ing [facility] Start: 1994 Administration of varicella zoster vaccine Zoster (Shingles) Vaccine (1 of 2) [facility] Start: 1963 DTaP,Tdap and Td Vaccines (1 - Tdap) DTaP,Tdap and Td Vaccines (1 - Tdap) [facility] Start: 1962 Adult BMI Follow Up Plan Adult BMI F ollow Up Plan [facility] Start: 1956 Depression Screening Depression Scre ening [facility] Start: 1944 Medicare Annual Well ness Visit Medicare Annual Wellness Visit [facility] Start: 1944 Tobacco Counseling Tobacco Counselin g [facility] Comprehensive metabo lic 1999 panel - Serum or Plasma [facility] Comprehensive metabo lic 1999 panel - Serum or Plasma [facility] CT Abdomen and Pelvi s W contrast IV [facility] Patient Education [facility] Work Phone: Patient referral [facility] Work Phone: [facility] Immunizations Immunization Date Immunization Notes Care Provider Fa cility 08-17-2024 influenza, high dose seasonal, preservative-free [facility] 08-17-2024 influenza virus vaccine, unspecified formulation Rosita CLEMONS Work Phone: [facility] 08-03-2023 influenza virus vaccine, unspecified formulation [facility] 08-03-2023 influenza, high dose seasonal, preservative-free Paras Sami Other [facility] [employer] Other 08-05-2022 influenza virus vaccine, split virus (incl. purified surface antigen) Paras Sami Other [facility] [employer] Other 08-05-2022 influenza virus vaccine, unspecified formulation Rosita CLEMONS Work Phone: [facility] 08-13-2021 influenza virus vaccine, split virus (incl. purified surface antigen) Paras Sami Other [facility] [employer] Other 08-13-2021 influenza virus vaccine, unspecified formulation [facility] 07-31-2020 influenza virus vaccine, split virus (incl. purified surface antigen) Paras Sami Other [facility] [employer] Other 07-31-2020 influenza virus vaccine, unspecified formulation [facility] 09-05-2018 influenza virus vaccine, split virus (incl. purified surface antigen) Paras Sami Other [facility] [employer] Other 09-05-2018 influenza virus vaccine, unspecified formulation [facility] Payers Date Payer Category Payer Medicare [id number] 2024 Managed Care Other (unspecified) [id number] PLAN [id number] 2024 Medicare [id number] 2009 Blue Cross Blue Shie ld Managed Care - Other ANTHEM [id number] 2009 Medicare [id number] 2009 Unknown ANTHEM BCBS OUT OF STATE TRADITIONAL [id number] 2009-Present [phone] [address] [place] [address] [id number] 1959 Medicare [id number] 1959 Self-pay 1959 Unknown [id number] 1959 Unknown [id number] 1959 Unknown [id number] 1944 Unknown [id number] 2.840.1.579418.3.579. 2.593 1944 Unknown [id number] 2.16.840.1.882046.3.579. 2.593 1944 Unknown [id number] 2.16840.1.840189.3.579. 2.593 1944 Unknown [id number] 2.16840.1.120949.3.579. 2.593 1944 Unknown [id number] 2.16.840.1.396535.3.579. 2.593 1944 Unknown [id number] 2.16.840.1.878180.3.579. 2.593 1944 Unknown [id number] 2.16.840.1.626698.3.579. 2.593 1944 Unknown [id number] 2.16.840.1.241843.3.579. 2.593 1944 Unknown [id number] 2.16.840.1.836572.3.579. 2.593 1944 Unknown [id number] 2.16.840.1.720896.3.579. 2.1286 1944 Unknown [id number] 2.16840.1.794170.3.579. 2.1286 1944 Unknown [id number] 2.16840.1.107771.3.579. 2.1286 1944 Unknown [id number] 2.16.840.1.746944.3.579. 2.1286 1944 Unknown [id number] 2.16840.1.969615.3.579. 2.1286 Unknown [id number] Unknown [id number] 2.16840.1.637166.3.579. 2.531 Unknown [id number] 2.16840.1.347656.3.579. 2.531 Unknown [id number] 2.840.1.112154.3.579. 2.531 Social History Date Type Detail Facility Start: 10-10-2022 End: 03-16-2025 Tobacco smoking status NHIS Ex-smoker (finding) [facility] Start: 1945 Sex Assigned At Female F [facility] Start: 12-26-2020 End: 03-23-2024 Sex Assigned At [facility] Other Start: 03-28-2023 End: 01-20-2025 Tobacco smoking status NHIS Smoker (finding) [facility] Start: 06-20-2015 End: 12-07-2024 Sex Female (finding) [facility] Start: 02-17-2024 End: 03-23-2024 Tobacco smoking status NHIS Smokes tobacco daily [facility] History of tobacco use Cigarette Smoker P Venda [facility] Start: 02-17-2024 End: 03-23-2024 Tobacco use and exposure Smokeless tobacco non-user [facility] Start: 03-23-2024 End: 04-12-2025 Alcoholic beverage intake Lifetime [facility]-drinker (finding) [facility] Start: 12-26-2020 End: 03-23-2024 History of Social function [facility] Childcare Unknown [facility] Start: 1945 Sex assigned at Not on file P [facility] Start: 02-02-2025 End: 02-03-2025 SDOH Follow up SDOH Follow up [facility] Work Phone: Goals Date Patient Goal Desired Activity /State Functional Status Date Assessment Result Facility 02-05-2025 Functional status Patient at Baseline [facility] Work Phone: 02-01-2025 Functional status Patient at Baseline [facility] Work Phone: Mental Status Date Assessment Result Facility 02-05-2025 Cognitive function Cognitive Sta tus Patient at Baseline [facility] Work Phone: 02-01-2025 Cognitive function Cognitive Sta tus Patient at Baseline [facility] Work Phone: Clinical Notes 05-08-2022 to 08-01-2025 Note Date & Type Note Facility 08-01-2025 Note Subjective Patient ID: Reji Jiang is a 80 y.o. female who presents for New Patient (Patient is here today for aortic stenosis and to establish care with cardiology Patient complains of fatigue, chest pain, leg swelling, using her o2 in the morning after waking up. Patient denies palpitations/racing heart, dizziness/llight headed), Shortness of Breath, Depression, COPD, Hypertension, and Hyperlipidemia. Tired all of the time Can cook, doesn't mop or sweep due to back pain. Always had a little SOB, wears O2 at home Can get pains in the chest, occurs anytime, lasts maybe an hour, relief spontaneous, stress may relate to this., non-radiating. Twin brother has felt so depressed all the time Shortness of Breath Associated symptoms include chest pain. DepressionPatient presents with the following symptoms: shortness of breath. Hypertension Associated symptoms include chest pain and shortness of breath. Hyperlipidemia Associated symptoms include chest pain and shortness of breath. Review of Systems Respiratory: Positive for chest tightness and shortness of breath. Cardiovascular: Positive for chest pain. Gastrointestinal: Negative for blood in stool. Genitourinary: Negative for hematuria. Neurological: Negative for dizziness, syncope and light-headedness. Psychiatric/Behavioral: Positive for depression. Objective Visit Vitals BP 138/68 (BP Location: Left arm, Patient Position: Sitting) Pulse 90 Physical Exam Constitutional: Appearance: Normal appearance. She is obese. HENT: Head: Normocephalic and atraumatic. Cardiovascular: Rate and Rhythm: Normal rate and regular rhythm. No extrasystoles are present. Chest Wall: PMI is not displaced. No thrill. Pulses: Carotid pulses are 2+ on the right side and 2+ on the left side. Radial pulses are 2+ on the right side. Dorsalis pedis pulses are 2+ on the right side and 2+ on the left side. Posterior tibial pulses are 2+ on the right side and 2+ on the left side. Heart sounds: Heart sounds not distant. Murmur heard. Crescendo decrescendo systolic murmur is present with a grade of 3/6. No diastolic murmur is present. Comments: JVP difficult to see, estimated 10 cm Musculoskeletal: Right lower le+ Edema present. Left lower le+ Edema present. Neurological: Mental Status: She is alert. EKG today normal Assessment/Plan Mrs. Jiang has obvious shortness of breath, becoming breathless going from chair to exam table. Neck veins appear elevated and exam shows murmur of aortic stenosis which is corroborated by echo with at least moderate aortic stenosis. Given ongoing chest pain, I have recommended R and L heart cath to evaluate for diastolic heart failure and aortic stenosis. I have discussed with her the expected risks: bleeding, , mi, stroke, etc. And she voices understanding. Plan labs: BMP, BNP, cbc She would like to see Dr. Doyle at [facility] for possible cardiac cath and I have copied him on this note. Diagnosis Plan 1. Nonrheumatic aortic valve stenosis 2. Precordial pain ECG 12 lead unit performed 3. Chronic diastolic heart failure (CMS/HCC) Orders Placed This Encounter Procedures ECG 12 lead unit performed This back office order was created through the Back Office Visit Navigator section. Release to Patient: Immediately No results found for this or any previous visit (from the past 36 hours). No follow-ups on file. [facility] 07-10-2025 Hospital Discharge instructions Ambulatory OrdersReferral to Gastroenterology Time Frame: 07/10/25, Location: None Selected [facility] Work Phone: 06-05-2025 Evaluation note Diagnosis Onset Date Resolution Anemia acute June 05 1:14pm Bloating acute June 05 1:14pm Cardiac murmur, unspecified acute June 05, 2025 1:14pm Constipated acute June 05 1:14pm Essential (primary) hypertension acute June 05, 2025 1:14pm Medicare annual wellness visit, subsequent acute June 05, 2025 1:14pm GERD without esophagitis acute July 10 1:57pm [facility] Work Phone: 1([phone]) 286-221206-17-2025 Miscellaneous Notes* Telephone Encounter - Leana Rubin RN - 05/01/2025 2:01 PM EDT Pt calls stating she is feeling really good and said that Garret told her she can cancel all appts here if she is not having any pain. Please proceed with canceling all procedures, f/u visits as she is feeling really good, no pain documented in this [facility]Pro[facility] Telephone encounter Note* Telephone Encounter - Leana Rubin RN - 05/01/2025 2:01 PM EDT Pt calls stating she is feeling really good and said that Garret told her she can cancel all appts here if she is not having any pain. Please proceed with canceling all procedures, f/u visits as she is feeling really good, no pain [facility]05-29-2025 History of Present illness Narrative* KACI Becerra - 04/12/2025 12:00 PM EDT [facility] [address] [place] [address] Patient: Reji Jiang Sex: female : 1945 Age: 79 y.o. PCP: PARAS GALLARDO MD 04/12/2025 Reji Jiang is here for a(n) follow up [...] and biofreeze with some relief. PT at [facility] (Dec 2022),PT/HEP 2021. The treatment provided mild relief. The effect of pain on patient's ADLS: Moderate Impairment. Past Medical History: Diagnosis Date Chronic pain disorder COPD (chronic obstructive pulmonary disease) ([facility]) GERD (gastroesophageal reflux disease) Hyperlipidemia Hypertension Joint pain Neck pain Past Surgical History: Procedure Laterality Date HERNIA REPAIR HYSTERECTOMY INJECTION BLOCK NERVE MEDIAL BRANCH: bilat C 2/3 3/4 Bilateral 03/12/2023 Performed by Kamar Koroma MD at [facility] INJECTION BLOCK NERVE MEDIAL BRANCH: bilat C 2/3, 3/4 Bilateral 03/09/2025 Performed by Kamar Koroma MD at [facility] INJECTION BLOCK NERVE MEDIAL BRANCH: bilat C 2/3, 3/4 Bilateral 03/03/2024 Performed by Kamar Koroma MD at [facility] NECK SURGERY 2012 Allergies Allergen Reactions Nylon [...] Interpersonal Safety: Unknown (01/06/2024) Received from [facility] Safety & Environment Fear of Current or [...] distributions. Spurlings sign is negative. Assessment/Treatment Plan: Reji was seen today for neck pain. Diagnoses [...] with application of heat and over the counterpain relievers. Follow up 4 weeks after procedure [...] currently prescribeany controlled substance from this practice. The spine [...] decrease procedural anxiety. OARRS: Reviewed. Scribe Statement: I, Soila Callahan CNA, scribed for and in the presence of KACI BECERRA who performed the above service. Soila Callahan CNA 04/12/25 1244 KACI Becerra 04/12/25 1341 documented in this encounterOhioHealth Doctors HospitalPorch [facility] [id number] Instructions* Patient Instructions* Soila Callahan CNA - 04/12/2025 12:00 PM EDT Radiofrequency Ablation (RFA) Radiofrequency ablation (or RFA) is a procedure used to reduce pain. An electrical current producedby a radio wave is used to heat up a small area of nerve tissue, thereby decreasing pain signals from that specific area. Which Conditions Are Treated With Radiofrequency Ablation? RFA can be used to help patients with chronic (long-lasting) back and neck pain and pain related tothe degeneration of joints from arthritis. How Long Does Pain Relief from Radiofrequency Ablation Last? The degree of pain relief varies, depending on the cause and location of the pain. Pain relief fromRFA can last from six to 12 months [...] room. Tellthe emergency room staff that you just had [...] it back to normal. documented in this encounterUK Healthcare05-15-2025 History of Present illness Narrative* KACI Becerra - 03/29/2025 1:00 PM EDT [facility] [address] [place] [address] Patient: Reji Jiang Sex: female : 1945 Age: 79 y.o. PCP: PARAS GALLARDO MD 03/29/2025 Reji Jiang is here for a(n) post procedure [...] and biofreeze with some relief. [facility] HEP from PT currently. The treatment provided mild relief. The effect of pain on patient's ADLS: Moderate Impairment. Past Medical History: Diagnosis Date Chronic pain disorder COPD (chronic obstructive pulmonary disease) ([facility]) GERD (gastroesophageal reflux disease) Hyperlipidemia Hypertension Joint pain Neck pain Past Surgical History: Procedure Laterality Date HERNIA REPAIR HYSTERECTOMY INJECTION BLOCK NERVE MEDIAL BRANCH: bilat C 2/3 3/4 Bilateral 03/12/2023 Performed by Kamar Koroma MD at [facility] INJECTION BLOCK NERVE MEDIAL BRANCH: bilat C 2/3, 3/4 Bilateral 03/09/2025 Performed by Kamar Koroma MD at [facility] INJECTION BLOCK NERVE MEDIAL BRANCH: bilat C 2/3, 3/4 Bilateral 03/03/2024 Performed by Kamar Koroma MD at [facility] NECK SURGERY 2011 Allergies Allergen Reactions Nylon [...] Interpersonal Safety: Unknown (01/06/2024) Received from [facility] Safety & Environment Fear of Current or [...] distributions. Spurlings sign is negative. Assessment/Treatment Plan: Reji was seen today for neck pain. Diagnoses [...] explain the condition. OARRS: Reviewed. Scribe Statement: ISoila CNA, scribed for and in the presence of KACI BECERRA who performed the above service. Soila Callahan CNA 03/29/25 1332 KACI Becerra 03/29/25 1511 documented in this encounterUK Healthcare05-02-2025 Evaluation note* Diagnosis Onset Date Resolution Status Admit Date Pain in left wrist acute March 6:09pm Anemia acute June 05 1:14pm Bloating acute June 05 1:14pm Cardiac murmur, unspecified acute June 05, 2025 1:14pm Constipated acute June 05 1:14pm Essential (primary) hypertension acu te June 05, 2025 1:14pm [facility] Work Phone: 1([phone]) 692-811604-08-2025 History of Present illness Narrative* Rosita Benz KACI Castillo - 02/20/2025 10:45 AM EDT [facility] [address] [address] Patient: Reji Jiang Sex: female : 1945 Age: 79 y.o. PCP: PARAS GALLARDO MD 02/20/2025 Reji Jiang is here for a(n) follow up. [...] and biofreeze with some relief. [facility] HEP from PT currently. The treatment provided mild relief. The effect of pain on patient's ADLS: Moderate Impairment. Past Medical History: Diagnosis Date Chronic pain disorder COPD (chronic obstructive pulmonary disease) ([facility]) GERD (gastroesophageal reflux disease) Hyperlipidemia Hypertension Joint pain Neck pain Past Surgical History: Procedure Laterality Date HERNIA REPAIR HYSTERECTOMY INJECTION BLOCK NERVE MEDIAL BRANCH: bilat C 2/3 3/4 Bilateral 03/12/2023 Performed by Kamar Koroma MD at [facility] INJECTION BLOCK NERVE MEDIAL BRANCH: bilat C 2/3, 3/4 Bilateral 03/03/2024 Performed by Kamar Koroma MD at [facility] NECK SURGERY 2012 Allergies Allergen Reactions Nylon [...] Interpersonal Safety: Unknown (01/06/2024) Received from [facility] [place] Safety & Environment Fear of Current [...] distributions. Spurlings sign is negative. Assessment/Treatment Plan: Reji was seen today for neck pain. Diagnoses [...] for these reasons. OARRS: Reviewed. Scribe Statement: Soila Meraz CNA, scribed for and in the presence of KACI BECERRA who performed the above service. Soila Callahan CNA 02/20/25 1132 KACI Becerra 02/20/25 1216 documented in this encounterOhioHealth Doctors HospitalPorch [facility] [id number] Instructions* Patient Instructions* Soila Callahan CNA - [...] the nearest emergency room. documented in this encounterSouthwestern Vermont Medical CenterMunchkin03-24-2025 Hospital Discharge instructionsAmbulatory Orders* Initiate Home Health Time Frame: 02/05/25, Location: Determined By Patient Additional Instructions Please wear home oxygen at 3l with any activity. I may not have addressed or treated all of your medical illnesses or the abnormal blood work or imaging studies during this hospitalization. Please ask your primary care provider to obtain [facility] records entirely to follow up on all [...] symptoms worsen or return. Discharging you from [facility] does not mean that your medical care [...] new oxygen therapy and high risk fall precautionsFostoria City Hospital Work Phone: 1(876) 888-388803-24-2025 Discharge summary Author Pushpa Brock [facility] Note Date/Time February 05, 2025 10: 20am [facility] [address] [place] [address] Discharge Summary Signed Patient: Reji Jiang MR#: [id number] : 1945 Acct:[id number] Age/Sex: 79 / F Adm Date: 5 Loc: Room: [address] [place] [address]: Pushpa Brock MD Copies to: [...] of thechest to screen colon cancer. PCP monitoring manager. Recommend patient to have an elective stress [...] ask her primary care doctor to obtain [facility] record entirely to address abnormalities seen [...] ask your primary care provider to obtain [facility] records entirely to follow up on all [...] symptoms worsen or return. Discharging you from [facility] does not mean that your medical care [...] Continuity of Care Document Health Concerns: A [facility] screening has identified you as FRAIL or [...] Four Ways to Beat the Frailty Risk https://www.[facility]/health/bxvmqjtb-wyf-xyeksghdsh/zkzg-gqtbwk-pgmn- ways- wa-ivxy-ery-frailty-risk Exam Physical Exam Vital Signs: Temp Pulse [...] signed by Pushpa Brock MD> 02/05/25 1020 [facility] Work Phone: 1(397) 859-360903-24-2025 [place] [address] Discharge Summary Signed Patient: Reji Jiang MR#: [id number] : 1945 Acct:[id number] Age/Sex: 79 / F Adm Date: 5 Loc: Room: [address] [place] [address]: Pushpa Brock MD Copies to: [...] of thechest to screen colon cancer. PCP monitoring manager. Recommend patient to have an elective stress [...] ask her primary care doctor to obtain [facility] record entirely to address abnormalities seen [...] ask your primary care provider to obtain [facility] records entirely to follow up on all [...] symptoms worsen or return. Discharging you from [facility] does not mean that your medical care [...] Continuity of Care Document Health Concerns: A [facility] screening has identified you as FRAIL or [...] Four Ways to Beat the Frailty Risk [email or web address].[facility].org/health/ejysgwnp-iri-oaljaxdytf/s wjv-vhqbkx-fxsx-ufcc-aj-fpbf-hgl-hqsutky-drsi Exam Physical Exam Vital Signs: Temp Pulse [...] MD 02/05/25 1011 Signed By: 02/05/25 1020 [facility]03-23-2025 Progress note Author Carole Kauffman [facility] Note Date/Time February 04, 2025 12: 11pm [facility] [address] [place] [address] Hospitalist Progress Note Signed Patient: Reji Jiang MR#: [id number] : 1945 Acct:[id number] Age/Sex: 79 / F Adm Date: 5 Loc: Room: [address] [place] [address] Type: ADM IN Attending Dr: Carole Kauffman [...] Ampul.Neb INHALATION 02/01/26 20:59 Not Given BID [facility] Enoxaparin Sodium 40 mg 02/02/25 10:00 02/04/25 [...] Mg/Ml (1ml) Vial IV-PUSH 02/05/26 08:59 DAILY [facility] Morphine Sulfate 2 mg 02/01/25 14:03 02/02/25 [...] <Electronically signed by Carole Kauffman MD> 02/04/25 [facility] Work Phone: 1(809) 102-989603-23-2025 [place] [id number] Hospitalist Progress Note Signed Patient: Reji Jiang MR#: [id number] : 1945 Acct:[id number] Age/Sex: 79 / F Adm Date: 5 Loc: 3T Room: [address] [place] [address] Type: ADM IN Attending Dr: Carole Kauffman [...] 02/04/25 12 07 Signed By: 02/04/25 1211 [facility]03-22-2025 Progress note Author Carole Kauffman [facility] Note Date/Time February 03, 2025 11: 19am [facility] [address] [place] [address] Hospitalist Progress Note Signed Patient: Reji Jiang MR#: [id number] : 1945 Acct:[id number] Age/Sex: 79 / F Adm Date: 5 Loc: Room: [address] [place] [address] Type: ADM IN Attending Dr: Carole Kauffman [...] Physician Documented By: Carole Kauffman MD 02/03/25 17 Signed By: <Electronically signed by Carole Kauffman MD> 02/03/[address] [place] [address] Work Phone: 1(639) 359-729603-22-2025 [place] [address] Hospitalist Progress Note Signed Patient: Reji Jiang MR#: [id number] : 1945 Acct:[id number] Age/Sex: 79 / F Adm Date: 5 Loc: Room: [address] [place] [address] Type: ADM IN Attending Dr: Carole Kauffman [...] Tablet PO 02/02/26 08:59 100 mg DAILY LUOIS Administration Methylprednisolone Sodium Succinate 40 mg 02/01/25 [...] Kauffman MD 02/03/25 11 17 Signed By: 02/03/[address] [place], [place] 1212503-21-2025 Progress note Author Carole Kauffman [facility] Note Date/Time February 02, 2025 12: 26pm [facility] [address] [place] [address] Hospitalist Progress Note Signed Patient: Reji Jiang MR#: [id number] : 1945 Acct:[id number] Age/Sex: 79 / F Adm Date: 5 Loc: Room: [address] [place] [address] Type: ADM IN Attending Dr: Carole Kauffman [...] <Electronically signed by Carole Kauffman MD> 02/02/25 3754 [facility] Work Phone: 1(445) 245-458703-21-2025 [place] [address] Hospitalist Progress Note Signed Patient: Reji Jiang MR#: [id number] : 1945 Acct:[id number] Age/Sex: 79 / F Adm Date: 5 Loc: 3T Room: [address] [place] [address] Type: ADM IN Attending Dr: Carole Kauffman [...] Kauffman MD 02/02/25 12 22 Signed By: 02/02/25 1226 [facility]03-20-2025 History and physical note Author Carole Kauffman [facility] Note Date/Time February 01, 2025 4:1 7pm [facility] [address] [place] [address] Hospitalist H&P Signed Patient: Reji Jiang MR#: [id number] : 1945 Acct:[id number] Age/Sex: 79 / F Adm Date: 5 Loc: Room: [address] [place] [address] Type: ADM IN Attending Dr: Carole Kauffman [...] except as mentioned elsewhere in the documentation [facility] Medical History Right upper quadrant pain (12/10/17) [...] List clean-up per request of Phys. [facility] History of hysterectomy Hx of [...] % (Auto) 16.6 % (.) 02/01/25 11:40 [place] % (Auto) 7.0 % (.) 02/01/25 11:40 Eos % (Auto) 1.3 % (.) 02/01/25 11:40 Baso % (Auto) 1.7 % (.) 02/01/25 11:40 Nucleat RBC Rel Count 0.1 /100 WBC (0-0.5) 02/01/25 11:40 Neut # (Auto) 8.1 x10E3/uL (1.8-7.7) H 02/01/25 11:40 Lymph # (Auto) 1.8 x10E3/uL (1.00-4.8) 02/01/25 11:40 [place] # (Auto) 0.8 x10E3/uL (0.0-0.8) 02/01/25 11:40 [...] pH 6.5 (5.0-9.0) 02/01/25 12:20 Ur Specific [place] 1.014 (1.001-1.030) 02/01/25 12:20 Urine Protein 70 [...] <Electronically signed by Carole Kauffman MD> 02/01/25 8907 [facility] Work Phone: 1(724) 330-601403-20-2025 History and physical [place] [id number] Hospitalist H&P Signed Patient: Reji Jiang MR#: [id number] : 1945 Acct:[id number] Age/Sex: 79 / F Adm Date: 5 Loc: 3T Room: [address] [place] [address] Type: ADM IN Attending Dr: Carole Kauffman [...] except as mentioned elsewhere in the documentation [facility] Medical History Right upper quadrant pain (12/10/17) [...] % (Auto) 16.6 % (.) 02/01/25 11:40 [place] % (Auto) 7.0 % (.) 02/01/25 11:40 Eos % (Auto) 1.3 % (.) 02/01/25 11:40 Baso % (Auto) 1.7 % (.) 02/01/25 11:40 Nucleat RBC Rel Count 0.1 /100 WBC (0-0.5) 02/01/25 11:40 Neut # (Auto) 8.1 x10E3/uL (1.8-7.7) H 02/01/25 11:40 Lymph # (Auto) 1.8 x10E3/uL (1.00-4.8) 02/01/25 11:40 [place] # (Auto) 0.8 x10E3/uL (0.0-0.8) 02/01/25 11:40 [...] pH 6.5 (5.0-9.0) 02/01/25 12:20 Ur Specific [place] 1.014 (1.001-1.030) 02/01/25 12:20 Urine Protein 70 [...] MD 02/01/25 14 11 Signed By: 02/01/[address] [place], [place] 1623903-08-2025 Evaluation note* Diagnosis Onset Date Resolution Status [...] February 08, 2025 2:14pm Hypertensive urgency acute Zack 2024 2:14pm Hypoxia acute February 08 2:14pm Smoker within last 12 months acute February 08, 2025 2:14pm Acute UTI deleted February 08 2:14pm [facility] Work Phone: [phone] Evaluation note* Diagnosis Onset Date Resolution Status Admit Date Bronchitis acute December 07, 2024 9:16am [facility] Work Phone: 1([phone]) 557-652301-23-2025 Evaluation note* Diagnosis Onset Date Resolution Status Admit Date Bronchitis acute December 07, 2024 9:16am Abdominal pain acute January 20, 2025 12:31pm [facility] Work Phone: 1(635) 521-861301-23-2025 Evaluation note* Diagnosis Onset Date Resolution Status Admit Date Bronchitis acute December 07, 2024 9:16am Abdominal pain acute January 20, 2025 12:31pm Bronchitis acute January 25 1:11pm Vaginitis acute January 25 1:11pm Acute hypoxemic respiratory failure acute February 01, 2025 2:03pm Acute UTI acute February 01 2:03pm COPD exacerbation acute January 142024 2:03pm [facility] Work Phone: 1(987) 923-535101-23-2025 Evaluation note* Diagnosis Onset Date Resolution Status Admit Date Bronchitis acute December 07, 2024 9:16am Abdominal pain acute January 20, 2025 12:31pm Bronchitis acute January 25 1:11pm Vaginitis acute January 25 1:11pm Acute hypoxemic respiratory failure acute February 01, 2025 2:03pm Acute UTI acute February 01 2:03pm COPD exacerbation acute January 142024 2:03pm Hypoxia acute February 01 2:03pm Wheezing acute February 01 2:03pm [facility] Work Phone: 1(457) 595-320801-23-2025 Evaluation note* Diagnosis Onset Date Resolution Status [...] February 08, 2025 2:14pm Hypertensive urgency acute Zack 2024 2:14pm Hypoxia acute February 08 2:14pm Smoker within last 12 months acute February 08, 2025 2:14pm [facility] Work Phone: 1([phone]) 813-517705-09-2024 History of Present illness Narrative* Rosita Castillo, AKCI - 03/23/2024 8:45 AM EDT [facility] [address] [place] [address] Patient: Reji Jiang Sex: female : 1945 Age: 78 y.o. PCP: PARAS GALLARDO MD 03/23/2024 Reji Jiang is here for a(n) post procedure [...] and biofreeze with some relief. [facility] ([facility] HEP from PT currently. The treatment provided mild relief. The effect of pain on patient's ADLS: Minimal Impairment. Past Medical History: Diagnosis Date Chronic pain disorder GERD (gastroesophageal reflux disease) Hyperlipidemia Hypertension Joint pain Past Surgical History: Procedure Laterality Date HERNIA REPAIR HYSTERECTOMY INJECTION BLOCK NERVE MEDIAL BRANCH: bilat C 2/3 3/4 Bilateral 03/12/2023 Performed by Kamar Koroma MD at [facility] INJECTION BLOCK NERVE MEDIAL BRANCH: bilat C 2/3, 3/4 Bilateral 03/03/2024 Performed by Kamar Koroma MD at [facility] NECK SURGERY 2012 Allergies Allergen Reactions Nylon [...] Interpersonal Safety: Unknown (01/06/2024) Received from [facility] [place] Safety & Environment Fear of Current [...] distributions. Spurlings sign is negative. Assessment/Treatment Plan: Reji was seen today for neck pain. Diagnoses [...] KACI Becerra 03/23/24 1205 documented in this encounterUK Healthcare04-04-2024 History of Present illness Narrative* KACI Becerra - 02/17/2024 10:45 AM EDT [facility] [address] [place] [address] Patient: Reji Jiang Sex: female : 1945 Age: 78 y.o. PCP: PARAS GALLARDO MD 02/17/2024 Reji Jiang is here for a(n) follow up [...] and biofreeze with some relief. [facility] ([facility]), HEP from PT currently. The treatment provided mild relief. The effect of pain on patient's ADLS: Mild Impairment. Past Medical History: Diagnosis Date Chronic pain disorder GERD (gastroesophageal reflux disease) Hyperlipidemia Hypertension Joint pain Past Surgical History: Procedure Laterality Date HERNIA REPAIR HYSTERECTOMY INJECTION BLOCK NERVE MEDIAL BRANCH: bilat C 2/3 3/4 Bilateral 03/12/2023 Performed by Kamar Koroma MD at [facility] NECK SURGERY 2011 Allergies Allergen Reactions Nylon [...] distributions. Spurlings sign is negative. Assessment/Treatment Plan: Reji was seen today for neck pain. Diagnoses [...] KACI Becerra 02/17/24 1327 documented in this encounterSouthwestern Vermont Medical CenterThe Halo Group [id number] Instructions* Patient Instructions* Soila Callahan CNA - [...] the nearest emergency room. documented in this encounterOhioHealth Doctors HospitalCarter-Waters10-16-2023 Evaluation note* Encounter Date Diagnosis Assessment Notes Treatment Notes Treatment Clinical Notes Aug, Epigastric pain (ICD-10 - R10.13) Aug, Bloating (ICD-10 - R14.0) Aug, Nausea (ICD-10 - R11.0) [employer] Other 10-09-2023 Evaluation note* Encounter Date Diagnosis Assessment Notes Treatment Notes Treatment Clinical Notes Aug, Epigastric pain (ICD-10 - R10.13) Aug, Right upper quadrant abdominal pain (ICD-10 - R10.11) [employer] Other 10-03-2023 Evaluation note* Encounter Date Diagnosis Assessment Notes Treatment Notes Treatment Clinical Notes Aug, Abnormal urinalysis (ICD-10 - R82.90) [employer] Other 10-02-2023 Evaluation note* Encounter Date Diagnosis [...] (ICD-10 - R30.0) Assess for possible UTI [employer] Other 06-13-2023 Evaluation note* Encounter Date Diagnosis Assessment Notes Treatment Notes Treatment Clinical Notes Apr, Chronic fatigue (ICD-10 - R53.82) Pt agrees to labs to f/o metabolic causes. Discussed stress relief, family support and help with husbands medical problems. [employer] Other 12-12-2022 Evaluation note* Encounter Date Diagnosis Assessment Notes Treatment Notes Treatment Clinical Notes Oct, Neck pain (ICD-10 - M54.2) [employer] Other 10-27-2022 NotePROCEDURE: XR TOES LT MIN [...] Electronically authenticated by: RAMYA IQBAL Date: 2022-09-10 06:16[facility]22 NotePROCEDURE: XR WRIST LT MIN 3 V [...] Electronically authenticated by: RAMYA IQBAL Date: 2022-05-08 13:14[facility] note[facility] assessment information [facility] Work Phone: Evaluation noteNo InformationNonortheast [facility] [employer] Other Evaluation note* Diagnosis Onset Date Resolution Status Anemia acute Essential (primary) hypertension acute Fatigue acute [facility] Work Phone: Evaluation note* Diagnosis Cervical spondylosis without myelopathy- Primary documented in this encounter [facility] [employer] SystemEvaluation note* Diagnosis Cervical spondylosis without myelopathy- Primary Cervical spondylosis without myelopathy- Primary Cervical spondylosis without myelopathy documented in this encounter [facility] [employer] SystemEvaluation note* Diagnosis Cervical spondylosis without myelopathy- Primary Cervical spondylosis without myelopathy- Primary Cervical spondylosis without myelopathy documented in this encounter [facility] [employer] SystemEvaluation note* Diagnosis Cervical spondylosis without myelopathy- Primary documented in this encounter [facility] SystemEvaluation note* Diagnosis Cervical spondylosis without myelopathy- Primary Cervical spondylosis without myelopathy- Primary Cervical spondylosis without myelopathy Cervical spondylosis without myelopathy documented in this encounter [facility] [employer] SystemHistory general Narrative - Reported* Type Description Date Medical History DEPRESSION Medical History HTN Medical History HYPERLIPEMIA Medical History COPD Surgical History BREAST REDUCTION Surgical History HERNIA REPAIR X2 Surgical History HYSTERECTOMY Surgical History NECK SURGERY [facility] [employer] Other History general Narrative - Reported* Type [...] NECK SURGERY Hospitalization History SEE SURGICAL HX [employer] Other Hospital Discharge instructions Additional Instructions Follow-up with neurosurgeon and or primary care doctor.[facility] Work Phone: Hospital Discharge instructions Additional Instructions Follow-up with your primary care doctor Return to ED if develop worsening symptoms [facility] Work Phone: InstructionsNot on filedocumented in this encounter [facility] [employer] SystemInstructionsNot on filedocumented in this encounter [facility] [employer] SystemInstructionsNot on filedocumented in this encounter [facility] [employer] SystemReason for referral (narrative)No reason for referral information [facility] Work Phone: Summary Purpose Family History No Family History Records Found Relationship Condition Age at Onset Recorded Date/T yi brother Unknown father Malignant neoplasm Unknown Unknown family member Unknown mother Unknown Malignant neoplasm of breast Unknown sister Unknown Advance Directives No Advanced Directives Records Found Advance Directive Response Recorded Date/ Time Advance [...] 2025 1:1 1pm Acute hypoxemic respiratory failure [facility] 2024 2:03pm Acute UTI February 01, 2025 2:0 3pm COPD exacerbation February 01, 2025 2:0 3pm Reason for Visit Admit Date Bronchitis December 07, 2024 9 :16am Abdominal pain January 20, 2025 12:3 1pm Bronchitis January 25, 2025 1:1 1pm Vaginitis January 25, 2025 1:1 1pm Acute hypoxemic respiratory failure [facility] 2024 2:03pm Acute UTI February 01, [...] Documentation February 05, 2025 3:2 0pm IP FR; COPD February 08, 2025 2:1 4pm Reason [...] 2:0 3pm Acute hypoxemic respiratory failure [facility] 2024 2:14pm Acute UTI February 08, 2025 [...] Documentation February 05, 2025 3:2 0pm IP FR; COPD February 08, 2025 2:1 4pm left [...] pm Essential (primary) hypertension June 052024 1:14pm Chief Complaint Admit Date wellness June 05, 2025 1:14 pm Tingling in Throat, Vomiting June 1:57pm Reason for Visit Admit Date Anemia June 05, 2025 1:14 pm Bloating June 05, 2025 1:14 pm Cardiac murmur, unspecified June 05, 2 025 1:14pm Constipated June 05, 2025 1:14 pm Essential (primary) hypertension June 052024 1:14pm Medicare annual wellness visit, subseque nt June 05, 2025 1:14pm GERD without esophagitis July 10 1:57pm Reason for Referral Specialty Diagnoses / Procedures Referred By Florentin bright Referred To Contact Diagnoses Cervical spondylosis without myelopathy Procedures Case request operating room: INJECTION BLOCK NERVE MEDIAL BRANCH: bilat C23 [address], KACI [address], [address] [place] [address] Referral ID Status Reason Start Date Expiration Date V isits Requested Visits Authorized [id number] Pending Review 02/17/2024 02/16/2025 1 1 Reason *Waiting for appt Last OV, CT and lab results. Diagnosis 1 Epigastric pain (R10 .13) Referral Organization [facility] Referring Provider First Name Paras Referring Provider Last Name Sami Referring Provider Specialty Family Medi cine Referred Organization [facility] Gastroenterolo gy Referred Provider JazLoan Referred Address [address] [facility] [address] ,[place], [place],[address] Referred Provider Specialty Gastroentero logy Referral Priority Routine General Notes Cheryl Fontanez 03:03:56 PM >received today, attachments made, sent P2P Additional Source Comments INFORMATION SOURCE (unrecogn ized section and content) DATE CREATED AUTHOR 08/01/2021 [facility] DATE CREATED AUTHOR AUTHOR'S ORGANIZ ATION 03/24/2023 [facility] DATE CREATED AUTHOR AUTHOR'S ORGANIZ ATION 03/22/2025 [facility] DATE CREATED AUTHOR AUTHOR'S ORGANIZ ATION 04/14/2025 [facility] DATE CREATED AUTHOR AUTHOR'S ORGANIZ ATION 08/04/2025 [facility] Care Teams (unrecognized sec tion and content) [...] 20, 2025 End: January 20, 2025 Isela Patiño PA-C Attending Provider Active Start: January 20, [...] Paras Gallardo MD Primary Care Provider Active Shawn [...] December 07, 2024 End: December 07, 2024 Housekeeping Room Attendant Relationship Specialty Start Date End Date Paras Gallardo MD [address] [place] [address] [id number] PCP - General Family Medicine 10/25/19 Housekeeping Room Attendant Relationship Specialty Start Date End Date Paras Gallardo MD [address] [place] [address] [phone] PCP - General Family Medicine 10/25/19 Team Status: Active Member Role Status Dates No Jones MD Emergency Provider Active Start: February 01, 2025 Paras Gallardo MD Primary Care Provider Active Start: February 01, 2025 Carole Kauffman MD Admit Provider, A ttending Provider Active Start: February 01, 2025 Housekeeping Room Attendant Relationship Specialty Start Date End Date Paras Gallardo MD [address] [place] [address] [phone] PCP - General Family Medicine 10/25/19 Team Status: Active Member Role Status Dates Paras Gallardo MD Primary Care Provider Active Start: March 16, 2025 Joana Manzo APRN Attending Provider Active Start: March 16, 2025 Housekeeping Room Attendant Relationship Specialty Start Date End Date Paras Gallardo MD [address] [place] [address] [phone] PCP - General Family Medicine 10/25/19 Housekeeping Room Attendant Relationship Specialty Start Date End Date Paras Gallardo MD [address] [place] [address] [phone] PCP - General Family Medicine 10/25/19 Housekeeping Room Attendant Relationship Specialty Start Date End Date Paras Gallardo MD [address] [place] [address] PCP - General Family Medicine 10/25/19 Team Status: Active Member Role Status Dates Paras Gallardo MD Primary Care Provider Active Start: June 25, 2025 Paras Gallardo MD Attending Provider Active St art: June 25, 2025 Team Status: Inactive Member Role Status Dates Paras Gallardo MD Primary Care Provider Active Start: July 10, 2025 End: July 10, 2025 Paras Gallardo MD Attending Provider Active St art: July 10, 2025 End: July 10, 2025 Goals (unrecognized section and content) Goals [...] sectionGoals may be documented in an alternate section [...] BE BASED ON THE PRIMARY CLINICAL RECORDS. [employer] [facility]. provides no warranty or guarantee of the accuracy or completeness of information in this document.
--- NOTE | 2025-08-23 13:30 | ED.GENADUL1 ---
HPI HPI - General Adult General Chief complaint: Extremity Injury, Lower Stated complaint: LOWER EXTREMITY PAIN Time Seen by Provider: 08/23/25 12:53 Source: patient Mode of arrival: ambulance Limitations: no limitations History of Present Illness HPI narrative: Patient is a 80-year-old female that presents the emergency department via EMS with complaints of pain in her right hip that radiates down the thigh that started last night without any preceding event or fall/trauma. She denies any previous surgery to her right hip or back. She denies any back issues previously. She has not taken anything for the pain. She was unable to ambulate on this hip and thus called EMS. She does have a rash in her inguinal area that is very red and she states has been there a while. She states she has been washing it and using baby powder but it has persisted. She denies that this is causing the pain. Related Data Home Medications ?Medication ?Instructions ?Recorded ?Confirmed atorvastatin 80 mg tablet 80 mg PO DAILY 01/19/25 01/20/25 losartan 100 mg tablet 100 mg PO DAILY 01/19/25 01/20/25 Previous Rx's ?Medication ?Instructions ?Recorded methocarbamol 500 mg tablet 500 mg PO Q8H PRN muscle pain #15 01/20/25 tabs methylprednisolone 4 mg tablets in See Rx Instructions .Route 01/20/25 a dose pack (Medrol (Cain)) .COMPLEX #21 ea ondansetron 4 mg disintegrating 4 mg PO Q6H PRN nausea and 01/20/25 tablet vomiting #12 tabs tramadol 50 mg tablet 50 mg PO Q6H PRN pain 3 days #12 01/20/25 tabs hydrocodone 5 mg-acetaminophen 325 1 tab PO Q8H PRN pain 5 days #15 08/23/25 mg tablet tabs nystatin 100,000 unit/gram topical 1 applic topical BID #15 grams 08/23/25 powder Allergies Allergy/AdvReac Type Severity Reaction Status Date / Time nylon Allergy Unknown Hives Verified 08/23/25 12:19 Penicillins Allergy Unknown Hives Verified 08/23/25 12:19 Opioid HPI Opioid Management Most Recent Opioid Data: Last Pain Scale 9 Today, 12:35 Risks, benefits, and alternatives of opioids discussed: Yes Opioid side effects: constipation, other changes in bowel habits, sedation, cognitive deficits and nausea Prescription drug monitoring program results: PDMP reviewed and no issues identified Review of Systems ROS Status of ROS 10 or more systems reviewed and unremarkable except as noted in history and below [facility] Social History Smoking status: Current every day smoker Little interest or pleasure in doing things: not at all Feeling down, depressed, or hopeless: not at all Exam Narrative Exam Narrative: General: No distress, age-appropriate Skin: Warm, dry, no pallor. Right inguinal fold there are erythematous, moist plaques with maceration Head: Normocephalic, atraumatic. Neck: Supple, non-tender. Eye: Pupils are equal, round and EOMI. No scleral icterus. Ears, Nose, Mouth, and Throat: No nasal mucosal hypertrophy. Oral mucosa is moist, no posterior oropharynx erythema, uvula is mid-line Cardiovascular: Regular Rate and Rhythm without murmur, gallop or rub. Respiratory: No accessory muscle use or respiratory distress. Lungs are clear to auscultation, no wheezing, rales or rhonchi Chest Wall: no tenderness Back: No midline thoracic or lumbar vertebral tenderness. Musculoskeletal: Full ROM of all extremities, except right hip. Internal/external passive rotation causes pain. Positive logroll. 4/5 right hip flexion/extension, otherwise 5/5 strength bilateral lower extremities. 2+ DP/PT pulses bilaterally. No calf or popliteal tenderness GI: Abdomen is soft, non-distended, non tender to palpation. No masses appreciated. No rebound, guarding, or rigidity noted. Neurological: A&O x4. No cranial nerve dysfunction observed. No truncal ataxia. Moves all extremities. Sensation intact. Psychiatric: Cooperative and interactive. Normal mood and affect. Constitutional Vital Signs, click to edit/add: Last Vital Signs Temp 98.1 F 08/23/25 12:15 Pulse 91 H 08/23/25 12:15 Resp 18 08/23/25 12:15 BP 132/86 08/23/25 12:15 Pulse Ox 94 L 08/23/25 12:15 O2 Del Method Room Air 08/23/25 12:15 Course Vital Signs Vital signs: Vital Signs Temperature 98.1 F 08/23/25 12:15 Pulse Rate 91 H 08/23/25 12:15 Respiratory Rate 18 08/23/25 12:15 Blood Pressure 132/86 08/23/25 12:15 Pulse Oximetry 94 L 08/23/25 12:15 Oxygen Delivery Method Room Air 08/23/25 12:15 Temperature 98.1 F 08/23/25 12:15 Pulse Rate 91 H 08/23/25 12:15 Respiratory Rate 18 08/23/25 12:15 Blood Pressure 132/86 08/23/25 12:15 Pulse Oximetry 94 L 08/23/25 12:15 Oxygen Delivery Method Room Air 08/23/25 12:15 Medical Decision Making MDM Narrative Medical decision making narrative: This is an 80-year-old female that presented to the emergency department via EMS with complaints of right hip pain that started last night, she denies preceding event or trauma. She denies any past surgical history or previous hip conditions. She denies any back surgery or back conditions she has been treated for in the past. She was unable to bear weight through the right lower extremity. She denies any numbness or tingling. The pain does radiate somewhat down her anterior thigh. On arrival patient is sitting up on the ED cart, in no distress but uncomfortable with attempts to move right hip or passive range of motion of the hip. Vitals are stable. She has some right hip flexion/extension weakness on exam 4/5, otherwise 5/5 strength bilateral lower extremities. Sensation is intact bilaterally to the lower extremities. 2+ DP/PT pulses bilaterally. Right Hip pain - Xray R Hip negative for fracture or dislocation, osteoarthritis noted. - [place] 7.5 given in ED, OARRS reviewed and no issues identified. - Patient was able to ambulate to the bathroom with assistance and a walker - I discussed disposition with patient and her son at bedside, she does live with her and son who will be able to aid in assistance with activities of daily living. We discussed close follow-up with Orthopedic surgery to consider MRI to rule out occult fracture if patient's pain is still uncontrolled. - On reevaluation, pain has improved in the right hip. We discussed scheduled Tylenol every 6-8 hours, I did prescribe [place] 5 mg every 8 hours as needed breakthrough pain. I recommended nonweightbearing RLE with use of walker, she has one at home. - Call Ortho after discharge for follow-up BERTRAM Right Inguinal Helen Intertrigo - Nystatin Powder placed in ED in R groin area - Prescription given for nystatin powder twice daily to right groin - Follow-up with PCP for reevaluation Patient was discharged home with strict return precautions such as uncontrolled pain, increasing weakness, numbness, paresthesias to the lower extremities, increasing rash, or fever. She was advised to be nonweightbearing on the right lower extremity with use of her walker. She was prescribed [place] 5 mg every 8 hours as needed breakthrough pain and nystatin powder for her inguinal Helen. She has close follow-up with her primary care provider for the inguinal Helen and will call Ortho to be seen as soon as possible. Differential Diagnosis Differential Diagnosis: Hip osteoarthritis, hip fracture, lumbar radiculopathy Imaging Data Right hip x-ray: Attestation: I have reviewed the pertinent imaging results. Radiologist's impression: ITS Impressions Hip/Pelvis X-Ray 08/23/25 13:12 IMPRESSION: No acute bony injury. Degenerative changes are noted in the sacroiliac joints and symphysis pubis. The right hip is grossly intact. Impression dictated by: Richard Zamudio M.D. 08/23/2025 1:36 PM Dictation Location: [place] [address] Electronically authenticated by: [id number] Y Date: 08/23/2025 13:36 Discharge Plan Discharge Chief Complaint: Extremity Injury, Lower Clinical Impression: Acute pain of right hip, Candidal intertrigo Patient Disposition: Home, Self-Care Time of Disposition Decision: 14:02 Condition: Good Mode of Transportation: Private Vehicle Prescriptions / Home Meds: New hydrocodone-acetaminophen 5-325 mg tablet 1 tab PO Q8H PRN (Reason: pain) 5 Days Qty: 15 0RF nystatin 100,000 unit/gram powder 1 applic topical BID Qty: 15 0RF No Action atorvastatin 80 mg tablet 80 mg PO DAILY losartan 100 mg tablet 100 mg PO DAILY methylprednisolone [Medrol (Cain)] 4 mg tablets,dose pack See Rx Instructions .ROUTE .COMPLEX Qty: 21 0RF Rx Instructions: Taper as directed methocarbamol 500 mg tablet 500 mg PO Q8H PRN (Reason: muscle pain) Qty: 15 0RF tramadol 50 mg tablet 50 mg PO Q6H PRN (Reason: pain) 3 Days Qty: 12 0RF Rx Instructions: ICD 10:M79.604 ondansetron 4 mg tablet,disintegrating 4 mg PO Q6H PRN (Reason: nausea and vomiting) Qty: 12 0RF Print Language: Malawian Instructions: Hip Pain (ED), Skin Yeast Infection (ED) Referrals: Abel Manzo DO [Physician, Orthopedics] - As soon as possible Referral Note: Call today for follow-up as soon as possible. Cheyanne Hernandez MD [Primary Care Provider, Family Practice] - 1 week Discharge Date/Time: 08/23/25 14:26
[2025-08-23] MEDS: HYDROCODONE/ACETAMINOPHEN 7.5-325 MG/15 ML CUP 7.5 MG PO (13:35)
[2025-08-23] MEDS: NYSTATIN 15 GM POWDER 1 APPLIC TOPICAL (14:03)
== END 2025-08-23 14:26 | disposition home or self-care (01) ==
PROVIDERS: Emergency Provider Student in an Organized Health Care Education/Training Program; PCP Family Medicine
DX: M25.551 Pain in right hip (principal); B37.2 Candidiasis of skin and nail; F17.200 Nicotine dependence, unspecified, uncomplicated
CPT/HCPCS: 73501; 99283